=== PATIENT | female | born 1945 | race Caucasian/White ===

== ENCOUNTER 2016-12-28 04:55 | Observation (INO) | payer OTHER ==
[2016-12-03 09:22] VITALS: BMI 32.0
--- NOTE | 2016-12-03 09:49 | PAT Medication Instructions ---
Service Date Dec 03, 2016. Current Home Medication List Albuterol Sulfate (Proventil Hfa), 2 PUFFS INH Q4H PRN for RN Alprazolam (Xanax), 0.25 MG PO BID PRN for Anxiety and/or Sedation Atorvastatin (Lipitor), 20 MG PO QPM Budesonide/Formoterol Fumarate (Symbicort 160-4.5 Mcg/Act), 1 PUFF INH BID Diltiazem Hcl (Diltiazem Hcl), 120 MG PO QAM Ipratropium-Albuterol (Duoneb), 1 TREATMENT INH Q4H Lansoprazole (Prevacid), 15 MG PO BID Multivitamin (Multivitamin), 1 TAB PO QAM Paroxetine (Paxil), 10 MG PO QAM [losartan], 1 TAB PO QAM Medication Instructions For Your Scheduled Surgery - Hold the following medications the morning of surgery: [losartan], 1 TAB PO QAM Multivitamin (Multivitamin), 1 TAB PO QAM - Take the following medications the morning of surgery with a sip of water OTHERWISE NOTHING TO EAT OR DRINK AFTER MIDNIGHT: Alprazolam (Xanax), 0.25 MG PO BID PRN for Anxiety and/or Sedation Albuterol Sulfate (Proventil Hfa), 2 PUFFS INH Q4H PRN Diltiazem Hcl (Diltiazem Hcl), 120 MG PO QAM Paroxetine (Paxil), 10 MG PO QAM Budesonide/Formoterol Fumarate (Symbicort 160-4.5 Mcg/Act), 1 PUFF INH BID Ipratropium-Albuterol (Duoneb), 1 TREATMENT INH Q4H Lansoprazole (Prevacid), 15 MG PO BID - Take the following medications as scheduled the night before surgery: Alprazolam (Xanax), 0.25 MG PO BID PRN for Anxiety and/or Sedation Albuterol Sulfate (Proventil Hfa), 2 PUFFS INH Q4H PRN Atorvastatin (Lipitor), 20 MG PO QPM Budesonide/Formoterol Fumarate (Symbicort 160-4.5 Mcg/Act), 1 PUFF INH BID Ipratropium-Albuterol (Duoneb), 1 TREATMENT INH Q4H Lansoprazole (Prevacid), 15 MG PO BID If you have any questions please call us at [phone] or [phone] or [phone]
[2016-12-03 10:12] LABS: BASO % 0.1 %; BASO ABS # 0.01 K/uL (0-0.2); COMPLETE YES; EOS % 0.4 %; HEMATOCRIT 41.2 % (37-47); IG% 0.8 %; LYMPH % 10.2 %; LYMPH ABS # 1.11 K/uL (1.2-3.4); MEAN CELL VOLUME 93.8 fL (80-100); MEAN CORPUSCULAR HEMOGLOBIN 31.2 pg (25-34); MEAN CORPUSCULAR HGB CONC 33.3 g/dl (32-36); MONO % 4.9 %; NEUT % 83.6 %; PLATELET COUNT 331 K/uL (130-400); RED BLOOD COUNT 4.39 M/uL (4.2-5.4); WHITE BLOOD COUNT 10.93 K/uL (4.8-10.8)
[2016-12-03 10:42] LABS: BUN/CREATININE RATIO 16.4 (10-20); CALCIUM 9.9 mg/dl (8.5-10.1); CREATININE 1.2 mg/dl (0.60-1.20); POTASSIUM 5.6 mmol/L (3.5-5.1)
--- NOTE | 2016-12-27 10:39 | History and Physical ---
History & Physical Date Dec 27, 2016. Chief Complaint left foot pain History of Present Illness The patient is a 71 year old female with complaints of left foot pain following a previous procedure for an ORIF of a lisfranc fx/dislocation. She developed traumatic arthritis in the left midfoot following the ORIF. Despite conservative tx, she had persistent pain and worsening deformity. She is now being set up for surgical management. 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 (4) Chest pain, rule out acute myocardial infarction (5) COPD (chronic obstructive pulmonary disease) (6) COPD exacerbation (7) Depression (8) Fall (9) Hyperlipidemia (10) Hypertension (11) Multiple fracture Surgical Problems: (1) H/o right thoracoscopy with decortication (2) H/o thoracentesis (3) S/P appendectomy (4) S/P bronchoscopy (5) S/P hysterectomy Allergies Coded Allergies: Hydrochlorothiazide (Verified Adverse Reaction, Intermediate, DIZZY, "LOOPY" FEELING, 12/03/16) Home Medications Scheduled Atorvastatin (Lipitor), 20 MG PO QPM Budesonide/Formoterol Fumarate (Symbicort 160-4.5 Mcg/Act), 1 PUFF INH BID Diltiazem Hcl (Diltiazem Hcl), 120 MG PO QAM Ipratropium-Albuterol (Duoneb), 1 TREATMENT INH Q4H Lansoprazole (Prevacid), 15 MG PO BID Multivitamin (Multivitamin), 1 TAB PO QAM Paroxetine (Paxil), 10 MG PO QAM [losartan], 1 TAB PO QAM Scheduled PRN Albuterol Sulfate (Proventil Hfa), 2 PUFFS INH Q4H PRN for RN Alprazolam (Xanax), 0.25 MG PO BID PRN for Anxiety and/or Sedation Physical Examination Skin: warm/dry, no rash, + pertinent finding (Healed left foot midfoot dorsal incision.) Eyes: normal inspection Head: normocephalic Neck: supple Respiratory/Chest: lungs clear, normal breath sounds, no respiratory distress Cardiovascular: regular rate, rhythm, no murmur Abdomen / GI: normal bowel sounds Extremities: + pertinent finding (Left foot midfoot deformity with bony prominences. Cock up deformity of the great toe. Tender to palpation at the 1st- 3rd TMT joints, intercuneiform joints and naviculocuneiform joints. Decreased ROM of the left ankle, particularly with dorsiflexion. 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 All potential risks, benefits, complications, alternatives, and rehab have been discussed. The patient wishes to proceed. She will be scheduled for 12.28.16.
[2016-12-28] VITALS (9 sets, daily range): BP systolic 120–150; BP diastolic 42–69; PULSE 71–93; TEMP 36.4–36.9; O2SAT 93–99; Ht 162.6 cm; Wt 86.2 kg
[~2016-12-28] VITALS: Ht 162.6 cm; Wt 86.2 kg
[~2016-12-28 04:55] MED LIST: ALBUAER INH; ALPR-411 PO; ATOR-22 PO; DILT120T3 PO; IPRASOL4 INH; LANS15CA6 PO; MULT-506 PO; PARO1TAB27 PO; SYMIN INH; losartan PO
[2016-12-28] MEDS ORDERED: CEFAZOLIN 2000 MG/60 ML D5W IV SCH (06:00)
[2016-12-28] MEDS ORDERED: LACTATED RINGER'S 1000ML 1,000 ML IV SCH (06:00)
[2016-12-28 06:15] LABS: INR 1.1 (0.9-1.1); PROTHROMBIN TIME (PATIENT) 11.4 SECONDS (9.0-12.0)
[2016-12-28] MEDS ORDERED: GLYCOPYRROLATE INJ 0.2 MG/ML VIAL ONE (06:33)
[2016-12-28] MEDS ORDERED: DEXAMETHASONE SOD INJ 4 MG/ML VIAL ONE (06:33)
[2016-12-28] MEDS ORDERED: NEOSTIGMINE METHYLSULFATE 5 MG/5 ML SYR ONE (06:33)
[2016-12-28] MEDS ORDERED: FENTANYL CITRATE INJ 50 MCG/1 ML 2 ML VIAL ONE ×3 (06:33→11:37)
[2016-12-28] MEDS ORDERED: ROCURONIUM BROMIDE 10 MG/ML 5 ML VIAL ONE (06:33)
[2016-12-28] MEDS ORDERED: ONDANSETRON INJ 2 MG/ML 2 ML VIAL ONE (06:33)
[2016-12-28] MEDS ORDERED: LIDOCAINE HCL 2% 2 ML VIAL (20MG/ML) ONE (06:33)
[2016-12-28] MEDS ORDERED: PROPOFOL IV EMULSION 10 MG/ML 20 ML VIAL IV ONE (06:33)
[2016-12-28] MEDS ORDERED: MIDAZOLAM HCL 1 MG/ML 2ML VIAL ONE (06:33)
[2016-12-28] MEDS ORDERED: ROPIVACAINE 0.5% 5 MG/ML 30 ML VIAL ONE (06:39)
[2016-12-28] MEDS ORDERED: EpHEDrine SULFATE INJ 50 MG/ML AMP IV PRN (07:00)
[2016-12-28] MEDS ORDERED: ATROPINE SULFATE 0.1 MG/ML 5ML SYR IV PRN (07:00)
[2016-12-28] MEDS ORDERED: ALBUT/IPRATROP 3MG/0.5MG NEB 3 ML VIAL INH ONE (07:00)
[2016-12-28] MEDS ORDERED: FENTANYL CITRATE INJ 50 MCG/1 ML 2 ML VIAL IV PRN (07:00)
[2016-12-28] MEDS ORDERED: HYDROmorphone INJ 1 MG/ML SYR IV PRN (07:00)
[2016-12-28] MEDS ORDERED: ONDANSETRON INJ 2 MG/ML 2 ML VIAL IV PRN ×2 (07:00→12:00)
[2016-12-28] MEDS ORDERED: BUPIVACAINE/EPINEPHRINE 0.5% MPF 1:200,000 10 ML VIAL ONE ×2 (07:11→10:11)
[2016-12-28] MEDS ORDERED: BACITRACIN 50000 UNIT VIAL ONE (07:12)
[2016-12-28] MEDS ORDERED: BUPIVACAINE 0.5 % 5 MG/1 ML MPF 30ML VIAL ONE (07:14)
--- NOTE | 2016-12-28 07:49 | History & Physical Bridge Note ---
H&P Re-Evaluation Bridge Note: I have examined the patient, reviewed the History & Physical and in the interval since the performance of the History & Physical I have noted the following changes of clinical significance: No changes noted
[2016-12-28] MEDS ORDERED: HEPARIN SOD (PORCINE) 1000 UNIT/ML 10 ML VIAL ONE (07:50)
[2016-12-28] MEDS ORDERED: CALCIUM CHLORIDE 10% 10 ML SYR ONE (07:50)
[2016-12-28] MEDS ORDERED: THROMBIN 5000 UNITS KIT ONE ×2 (09:06→10:38)
[2016-12-28] MEDS ORDERED: HydrALAZINE HCL 20 MG/ML VIAL ONE (10:01)
[2016-12-28] MEDS ORDERED: SODIUM CHLORIDE 0.9% INJ 10 ML VIAL ONE (10:01)
[2016-12-28] MEDS ORDERED: ESMOLOL HCL 10 MG/ML 10 ML VIAL ONE (10:01)
[2016-12-28] MEDS ORDERED: METOPROLOL TARTRATE 1 MG/ML VIAL ONE (10:29)
[2016-12-28] MEDS ORDERED: BISACODYL 10 MG SUPP PR PRN (12:00)
[2016-12-28] MEDS ORDERED: MAGNESIUM HYDROXIDE SUSP 30 ML UDC PO PRN (12:00)
[2016-12-28] MEDS ORDERED: ALUMINUM/MAGNESIUM/SIMETH (MAALOX MAX) 30 ML UDC PO PRN (12:00)
[2016-12-28] MEDS ORDERED: NO NSAIDS SCH (12:00)
[2016-12-28] MEDS ORDERED: ZOLPIDEM TARTRATE 5 MG TAB PO PRN (12:00)
[2016-12-28] MEDS ORDERED: SOD PHOSPHATE/SOD BIPHOSPHATE ENEMA 132 ML BTL PR PRN (12:00)
[2016-12-28] MEDS ORDERED: ALPRAZOLAM 0.25 MG TAB PO PRN (12:00)
--- NOTE | 2016-12-28 12:03 | DIAGNOSTIC IMAGING REPORT ---
LEFT FOOT 2 VIEWS HISTORY: 71 years-old Female LT RECONSTRUCTION COMPARISON: Left foot radiographs 05/11/2016 TECHNIQUE: Frontal and lateral spot fluoroscopic images of the left foot were obtained for a total of 2 images utilizing 36.7 seconds of fluoroscopy time. Interpretation images was provided after the conclusion of the procedure. FINDINGS: Postsurgical changes of the forefoot and midfoot are seen with medial approach ORIF with plate and screw fixation through the navicular and cuboid and transversely through the base of the first metatarsal and cuneiforms with additional screw through the base of the first, second and third metatarsal bases. Postsurgical swelling is seen along the medial midfoot and dorsal midfoot. Extensive spurring of the calcaneus is redemonstrated. There is background moderate bone demineralization. There is widening between the first and second metatarsal bases. IMPRESSION: Status post ORIF of the mid foot and forefoot as above. Please see operative report for further details. The above report was generated using voice recognition software. It may contain grammatical, syntax or spelling errors. Electronically signed by: Puneet Murguia M.D. 12/28/2016 12:01 PM Dictated Date/Time: 12/28/2016 11:58 AM
--- NOTE | 2016-12-28 12:19 | [facility] Operative Report ---
Operative Report Operative Date Dec 28, 2016. 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 (1/2/3 TMT; 1/2/3 intercuneiform; 1/2/3 naviculocuneiform joints) Left foot lisfranc fx/dislocation Left achilles contracture Procedure(s) Performed Left Foot Medial Column Reconstruction (Arthrex Plate); Fusion of midfoot at the 1/2/3 Tarsal Metatarsal Joints, 1/2/3 Intercuneiform Joints and 1/2/3 Naviculocuneiform Joints; Percutaneous Tendon Achilles Lengthening; Application of Bone Marrow Aspirate, Left Iliac Crest Bone Marrow Aspirate [place] Surgeon Dr Berry Back Office Medical Assistant Surgeon(s) Minh Sweeney PA-C Estimated Blood Loss 35 Findings See operative report Specimens None as per surgeon Drains none Anesthesia Gen. LMA with popliteal block Complication(s) None Disposition Recovery Room / PACU Indications This is a 71-year-old female with remote history of neglected left foot Lisfranc fracture dislocation. She had chronic progressive and debilitating left foot pain, deformity with swelling. She attempted and failed conservative management including: Anti-inflammatories, rest, ice, elevation, use of assistive device, shoewear modification, shoe inserts and home exercises. She had radiographs and CT scans consistent with neglected Lisfranc fracture dislocation with collapse of the medial arch and severe degenerative changes throughout the midfoot. The patient was then scheduled for surgery as indicated. Description of Procedure All potential risks, benefits, complications, alternatives, rehabilitation, potential for incomplete relief of symptoms, need for further surgery, persistent numbness, weakness, stiffness, persistent pain, DVT, PE, , bone fracture, hardware breakage, nonunion, malunion or wound complications were discussed with the patient. The patient decided to proceed with the procedure as indicated. Procedure: Patient received a popliteal block in the preoperative holding area. The patient was then taken to the operative suite and placed supine on the operating table. After review of the consent indication of the proper operative site the patient was anesthetized and LMA was placed. A tourniquet was applied high on the left lateral cast padding. The left lower extremity was then sterilely prepped and draped in usual fashion. Left lower extremity was then exsanguinated with an Esmarch bandage and the tourniquet was inflated to 350 mmHg. The left foot was held in dorsiflexion and a three-part percutaneous tendo Achilles lengthening was performed with an 11 blade scalpel. The 3 small incisions were then closed using skin rico. Next a 15 blade scalpel was used to make an incision along the medial column of the left extending from just distal to the medial malleolus to the metatarsal flare of the first metatarsal head. The incision was deepened to the subcutaneous tissue. Meticulous hemostasis was achieved with left cautery. The tributaries of the saphenous vein was then retracted and protected. The deep retinaculum was then incised in line with the skin incision and elevated. The tibialis anterior was then marked with a #2 FiberWire suture proximally with a Krakw locking loop and a similar #2 FiberWire Krakw locking loop was placed distally. The tendon was then severed between the 2 locking loop sutures and then retracted proximally. The tibialis anterior was then sharply elevated the medial cuneiform. The distal insertion was left intact. Next the capsular tissue along the medial column was then sharply incised with 15 blade scalpel and elevated both superiorly and inferiorly. Next the first tarsometatarsal joint was then entered with a 15 blade scalpel. Rongeur was used to resect the exostoses dorsal and plantar. Next Triplett elevator was then used to open the second tarsometatarsal joint and then subsequently the third tarsometatarsal joint was opened. Next attention was injected toward the first naviculocuneiform joint. The second naviculocuneiform and third naviculocuneiform joints and over the 15 blade scalpel and a Triplett elevator. A Dow retractor was placed dorsally after the neurovascular bundles and sharply elevated with a Metzenbaum scissor. The second Dow retractors placed plantar to protect the soft tissue structures at the level of midfoot. Next a [employer] saw blade was then used to perform a biplanar intra-articular closing wedge osteotomy extending from the first tarsometatarsal joint through the second tarsometatarsal joint and across the third tarsometatarsal joint. This markedly corrected the foot position when trial reduction was performed of the arthrodesis. Next the naviculocuneiform intercuneiform and tarsometatarsal joints then further prepared by using a curette and rongeur to remove any residual articular cartilage and then this was irrigated with sternal saline. Next a 1.6 mm drill was then used to make multiple drill holes in the first second and third tarsometatarsal joints the first second and third intercuneiform joints as well as the first second and third naviculocuneiform joints to increase surface area and produce bleeding of the arthrodesis sites. Next a 6 deniz osteotome and mallet was used to fish scale all joint surfaces to be fused. Next the foot was then placed back in improved alignment and then provisionally pinned with multiple K wires. Radiographs demonstrated marked improvement in the position and alignment of the foot. The abductus and planus deformities noted previously were corrected. Next a morcellized bone graft obtained from the closing wedge osteotomy was then impacted into the first second and third tarsometatarsal joints intercuneiform joints and naviculocuneiform joints. His then followed by placement of a Arthrex medial column stabilization plate provisionally with small BB tacks. At this point the left iliac crest then infiltrated with half percent Marcaine with epinephrine. Over the left iliac crest 15 blade scalpel incision was made through the skin and subcutaneous tissue. Meticulous hemostasis was achieved with cautery. Next the fascia was then incised with Letsche cautery revealing the iliac crest. Next a Jamshidi needle was then used to withdraw approximately 55 mL of marrow aspirate from left iliac crest. As then passed off processing. Next the wound was irrigated with sternal saline the fascia was closed with #1 Vicryl the dermis was closed using buried interrupted 2-0 Vicryl. The graft site was then injected with half percent Marcaine with epinephrine with morphine. The skin was then closed using skin rico. A sterile compressive dressing and sterile OpSite was applied over the graft harvest site. Next attention was then directed back toward the medial column plate which was then fixed from proximal to distal compressing every joint surface along the medial column. His first the slots in place with locking screws at the proximal aspect plate followed by locking screws into the regular then into the intercuneiform's and then finally into the metatarsals after a compression homerun screw was placed from the first metatarsal into the navicular. Next final locking screws were placed in the metatarsal. Final irrigation was performed with copious amounts of sterile normal saline with bacitracin additive. Bone marrow aspirate was then injected into the fusion sites to enhance bone healing and tissue healing. Next the final x-rays were obtained AP and lateral projections noted marked improvement in alignment and position of the foot. The tibialis anterior was then repaired with #2 FiberWire suture. The deep periosteum and fascia was then closed with interrupted 2-0 Vicryl. The dermis was closed using buried interrupted 3-0 Vicryl. The skin is closed after further bone marrow aspirate was injected in the subcutaneous layer with 4-0 nylon sutures. A sterile compressive dressing and bulky Isreal Foss plaster splint was applied overwrapped with an Дмитрий wrap. The tourniquet was released the patient was awakened and taken to recovery in stable condition. I attest to the content of the Intraoperative Record and any orders documented therein. Any exceptions are noted below.
--- NOTE | 2016-12-28 12:46 | DIAGNOSTIC IMAGING REPORT ---
LEFT FOOT MIN 3 VIEWS ROUTINE HISTORY: 71 years-old Female postoperative exam. COMPARISON: Left foot radiographs 12/28/2016 TECHNIQUE: 3 views of the left foot were obtained post midfoot fusion. FINDINGS: Overlying casting material dramatically limits evaluation of the fine bony detail. The bones are diffusely demineralized. Medial plate and screw fusion hardware is again seen within the midfoot and forefoot fixating the navicular, cuboid, cuneiforms and first, second and third metatarsal bases. Again, there is mild widening between the first and second metatarsal bases. Alignment otherwise appears satisfactory. Plummer are seen posteriorly about the lower leg. There is prominent spurring of the calcaneus and anterior process of talus. Expected postsurgical swelling is noted. IMPRESSION: Post surgical changes as above with limited evaluation secondary to overlying cast. Please see operative report for further details. The above report was generated using voice recognition software. It may contain grammatical, syntax or spelling errors. Electronically signed by: Puneet Murguia M.D. 12/28/2016 12:45 PM Dictated Date/Time: 12/28/2016 12:42 PM
[2016-12-28] MEDS ORDERED: IV FLUIDS COMPLETED PRN (13:30)
--- NOTE | 2016-12-28 14:25 | Anesthesiology Progress Note ---
Anesthesia Post Op Note Date & Time Dec 28, 2016 at 14:25 Vital Signs Pain Intensity: 0 Vital Signs Past 12 Hours Date Time Temp Pulse Resp B/P (MAP) Pulse Ox O2 Delivery O2 Flow Rate FiO2 12/28/16 13:55 93 18 142/66 (91) 12/28/16 13:41 86 18 120/56 (77) 12/28/16 12:52 36.8 86 18 132/67 (88) 95 Nasal Cannula 3.0 12/28/16 12:40 36.6 81 16 138/82 92 Nasal Cannula 2 12/28/16 12:30 89 16 96/62 92 Nasal Cannula 2 12/28/16 12:20 83 16 147/66 96 Mask 10 12/28/16 12:10 82 16 138/69 96 Mask 10 12/28/16 12:01 36.2 87 16 150/82 96 Mask 10 12/28/16 06:57 71 16 93 Room Air 12/28/16 05:48 36.9 71 18 147/42 (77) 96 Room Air Notes Mental Status: alert / awake / arousable, participated in evaluation Pt Amnestic to Procedure: Yes Nausea / Vomiting: adequately controlled Pain: adequately controlled Airway Patency, RR, SpO2: stable & adequate BP & HR: stable & adequate Hydration State: stable & adequate Anesthetic Complications: no major complications apparent
[2016-12-28] MEDS ORDERED: LOSA50TA6 PO (15:02)
[2016-12-28] MEDS: D5W AND 1/2NSS + 20MEQ KCL 1,000 ML IV SCH (15:39)
[2016-12-28] MEDS: CEFAZOLIN IV 2,000 MG in DEXTROSE 5% 50ML 50 ML IV SCH (15:39)
[2016-12-28] MEDS: ACETAMINOPHEN 500 MG TAB PO SCH ×2 (15:40→21:24)
[2016-12-28] MEDS: LANSOPRAZOLE SOLUTAB 15 MG PO SCH (21:22)
[2016-12-28] MEDS: DOCUSATE SODIUM 100 MG CAP PO SCH (21:22)
[2016-12-28] MEDS: ATORVASTATIN 20 MG TAB PO SCH (21:22)
[2016-12-28] MEDS: SENNA 8.6 MG TAB PO SCH (21:23)
[2016-12-28] MEDS: ASPIRIN 81 MG ECTAB PO SCH (21:23)
[2016-12-28] MEDS: BUDESONIDE/FORMOTEROL FUMARATE 160/4.5 60 PUFFS/INHALER INH SCH (21:23)
[2016-12-29] VITALS (7 sets, daily range): BP systolic 125–156; BP diastolic 65–73; PULSE 72–96; TEMP 36.4–37.6; O2SAT 88–98
[2016-12-29] MEDS: D5W AND 1/2NSS + 20MEQ KCL 1,000 ML IV SCH (00:06)
[2016-12-29] MEDS: CEFAZOLIN IV 2,000 MG in DEXTROSE 5% 50ML 50 ML IV SCH (00:06)
[2016-12-29] MEDS: OXYCODONE HCL IR 5 MG TAB (IMMEDIATE RELEASE) PO PRN ×5 (03:11→20:06)
[2016-12-29] MEDS: ACETAMINOPHEN 500 MG TAB PO SCH ×3 (05:40→20:51)
[2016-12-29 06:25] LABS: HEMATOCRIT 34.5 % (37-47); MEAN CELL VOLUME 93.8 fL (80-100); MEAN CORPUSCULAR HEMOGLOBIN 30.4 pg (25-34); MEAN CORPUSCULAR HGB CONC 32.5 g/dl (32-36); MEAN PLATELET VOLUME 9.1 fL (7.4-10.4); PLATELET COUNT 392 K/uL (130-400); RED BLOOD COUNT 3.68 M/uL (4.2-5.4); WHITE BLOOD COUNT 10.05 K/uL (4.8-10.8)
[2016-12-29 06:56] LABS: CALCIUM 8.8 mg/dl (8.5-10.1); POTASSIUM 4.4 mmol/L (3.5-5.1)
[2016-12-29] MEDS: MoRPHine SULFATE 2 MG/ML CARP IV PRN ×5 (08:33→20:46)
[2016-12-29] MEDS: ASPIRIN 81 MG ECTAB PO SCH ×2 (08:33→20:50)
[2016-12-29] MEDS: LOSARTAN POTASSIUM 50 MG TAB PO SCH (08:33)
[2016-12-29] MEDS: DILTIAZEM HCL 120 MG CAPCR PO SCH (08:33)
[2016-12-29] MEDS: DOCUSATE SODIUM 100 MG CAP PO SCH ×2 (08:33→20:50)
[2016-12-29] MEDS: BUDESONIDE/FORMOTEROL FUMARATE 160/4.5 60 PUFFS/INHALER INH SCH ×2 (08:33→20:47)
[2016-12-29] MEDS: MULTIVITAMIN TAB PO SCH (08:34)
[2016-12-29] MEDS: PAROXETINE 20 MG TAB PO SCH (08:34)
[2016-12-29] MEDS: LANSOPRAZOLE SOLUTAB 15 MG PO SCH ×2 (08:34→20:51)
[2016-12-29] MEDS ORDERED: NURSING VERBAL MED ORDER ONE ×2 (09:30→21:45)
--- NOTE | 2016-12-29 09:45 | Orthopedic Progress Note ---
Orthopedic Progress Note Date of Service Dec 29, 2016. Subjective Reports: feeling well, Denies: complaints, chest pain, SOB, nausea / vomiting, light headedness, calf pain Additional Notes: Foot pain well controlled. Up with PT. Finished breakfast. Objective calves soft nontender, N/V intact, splint C/D/I, capillary refill less than 2 sec., A&O x3, toes mobile DNVSI. Cap refill < 2 sec. Date Time Temp Pulse Resp B/P (MAP) Pulse Ox O2 Delivery O2 Flow Rate FiO2 12/29/16 07:49 36.9 72 18 134/73 (93) 91 Room Air 12/29/16 03:12 36.6 80 16 156/70 (98) 98 Nasal Cannula 3.0 12/29/16 00:07 36.4 85 14 128/68 (88) 98 Nasal Cannula 3.0 12/28/16 19:50 36.8 89 16 147/63 (91) 96 Room Air 12/28/16 19:30 Room Air 12/28/16 16:41 95 Nasal Cannula 3.0 12/28/16 16:00 Nasal Cannula 2.0 12/28/16 15:59 36.4 85 16 146/69 (94) 99 Nasal Cannula 3.0 12/28/16 14:50 36.8 84 16 150/63 (92) 94 Nasal Cannula 3.0 12/28/16 13:55 93 18 142/66 (91) 12/28/16 13:41 86 18 120/56 (77) 12/28/16 12:52 36.8 86 18 132/67 (88) 95 Nasal Cannula 3.0 12/28/16 12:40 36.6 81 16 138/82 92 Nasal Cannula 2 12/28/16 12:30 89 16 96/62 92 Nasal Cannula 2 12/28/16 12:20 83 16 147/66 96 Mask 10 12/28/16 12:10 82 16 138/69 96 Mask 10 12/28/16 12:01 36.2 87 16 150/82 96 Mask 10 Laboratory Results 24 Hours: Test 12/29/16 05:51 Hematocrit 34.5 % Hemoglobin 11.2 g/dL Assessment & Plan Assessment: S/P Left foot medial column reconstruction. Extensive midfoot fusions, Perc ROCÍO , Application BMA. POD#1 Plan: Plan for [facility] in [place] if/when approved as patient lives alone.Will attempt alternate placement if patient approves. ROGERS Barrios and ROXANNs while in bed PT for gait training EC ASA 81mg PO daily for 4 weeks Discharge Planning [facility]charge [facility] DVT Prophylaxis: ASA
[2016-12-29] MEDS ORDERED: OXYC-57 PO (10:46)
[2016-12-29] MEDS ORDERED: ASPEC81 PO (10:46)
--- NOTE | 2016-12-29 10:49 | Discharge Instructions ---
Discharge Instructions Date of Service Dec 29, 2016. Admission Reason for Admission: Left Foot Traumatic Mid-Foot Degenerative Joint Di Discharge Discharge Diagnosis / Problem: Left foot reconstruction Discharge Goals Goal(s): Decrease discomfort, Improve function, Increase independence, Therapeutic intervention Activity Recommendations Activity Level: Assistance Required Therapies: Physical Therapy, Occupational Therapy Weightbearing Status: Left non-weightbearing . Additional Information Patient informed of condition: Yes Advance Directives: No DNR: No Level of Care: Skilled Communicable Disease: No Prognosis: Stable Current Hospital Diet Patient's current hospital diet: Regular Diet Discharge Diet Recommended Diet: Regular Diet Procedures Procedures Performed: Left Foot Medial Column Reconstruction (Arthrex Plate); Fusion of midfoot at the 1/2/3 Tarsal Metatarsal Joints, 1/2/3 Intercuneiform Joints and 1/2/3 Naviculocuneiform Joints; Percutaneous Tendon Achilles Lengthening; Application of Bone Marrow Aspirate, Left Iliac Crest Bone Marrow Aspirate [place] Pending Studies Studies pending at discharge: no Medical Emergencies . Who to Call and When: Medical Emergencies: If at any time you feel your situation is an emergency, please call 911 immediately. . Non-Emergent Contact Non-Emergency issues call your: Primary Care Provider . . "Provider Documentation" section prepared by Cassandra Avina. . Core Measure Problem Core Measures: None
[2016-12-29 14:59] LABS: URINE APPEARANCE CLEAR (CLEAR); URINE BILIRUBIN NEG (NEG); URINE COLOR YELLOW; URINE NITRITE NEG (NEG); URINE SPECIFIC GRAVITY 1.011 (1.000-1.030); UROBILINOGEN NEG (NEG); ZZUR CULT IF INDIC CLEAN CATCH NO
[2016-12-29 15:00] LABS: MANUAL MICROSCOPIC REQUIRED? NO; REVIEW REQ? NO
[2016-12-29] MEDS: ALBUTEROL HFA 8 GM INHALER INH PRN (19:38)
[2016-12-29] MEDS: SENNA 8.6 MG TAB PO SCH (20:50)
[2016-12-29] MEDS: ATORVASTATIN 20 MG TAB PO SCH (20:50)
[2016-12-29] MEDS: ALBUT/IPRATROP 3MG/0.5MG NEB 3 ML VIAL INH PRN (21:25)
[2016-12-29] MEDS: OXYCODONE HCL 10 MG TABCR (OXYCONTIN) PO PRN (21:52)
[2016-12-29] MEDS: HYDROmorphone INJ 0.5 MG/0.5 ML SYR IV PRN (21:53)
[2016-12-30] MEDS: OXYCODONE HCL IR 5 MG TAB (IMMEDIATE RELEASE) PO PRN ×4 (05:23→22:19)
[2016-12-30] MEDS: ACETAMINOPHEN 500 MG TAB PO SCH ×3 (05:23→22:15)
[2016-12-30 05:24] VITALS: PULSE 102; O2SAT 92
[2016-12-30] MEDS: ALBUT/IPRATROP 3MG/0.5MG NEB 3 ML VIAL INH PRN ×2 (05:24→17:23)
[2016-12-30] MEDS: HYDROmorphone INJ 0.5 MG/0.5 ML SYR IV PRN ×4 (06:03→18:28)
[2016-12-30 06:20] VITALS: BP 124/69; PULSE 89; TEMP 36.9; O2SAT 95
[2016-12-30 06:34] LABS: HEMATOCRIT 34.8 % (37-47); MEAN CELL VOLUME 95.1 fL (80-100); MEAN CORPUSCULAR HEMOGLOBIN 30.6 pg (25-34); MEAN CORPUSCULAR HGB CONC 32.2 g/dl (32-36); MEAN PLATELET VOLUME 9.4 fL (7.4-10.4); PLATELET COUNT 397 K/uL (130-400); RED BLOOD COUNT 3.66 M/uL (4.2-5.4); WHITE BLOOD COUNT 9.07 K/uL (4.8-10.8)
[2016-12-30 07:04] LABS: BUN/CREATININE RATIO 13.8 (10-20); CALCIUM 9.1 mg/dl (8.5-10.1); POTASSIUM 3.9 mmol/L (3.5-5.1)
[2016-12-30] MEDS: ASPIRIN 81 MG ECTAB PO SCH ×2 (07:58→22:13)
[2016-12-30] MEDS: LANSOPRAZOLE SOLUTAB 15 MG PO SCH ×2 (07:59→22:14)
[2016-12-30] MEDS: DOCUSATE SODIUM 100 MG CAP PO SCH ×2 (07:59→22:13)
[2016-12-30] MEDS: PAROXETINE 20 MG TAB PO SCH (07:59)
[2016-12-30] MEDS: LOSARTAN POTASSIUM 50 MG TAB PO SCH (07:59)
[2016-12-30] MEDS: MULTIVITAMIN TAB PO SCH (07:59)
[2016-12-30] MEDS: DILTIAZEM HCL 120 MG CAPCR PO SCH (08:00)
[2016-12-30] MEDS: BUDESONIDE/FORMOTEROL FUMARATE 160/4.5 60 PUFFS/INHALER INH SCH ×2 (08:00→22:18)
--- NOTE | 2016-12-30 08:33 | Orthopedic Progress Note ---
Orthopedic Progress Note Date of Service Dec 30, 2016. Subjective Post OP Day: 2 Reports: feeling well, Denies: chest pain, SOB, nausea / vomiting, light headedness, calf pain Objective calves soft nontender, N/V intact, splint C/D/I, capillary refill less than 2 sec., A&O x3, toes mobile Date Time Temp Pulse Resp B/P (MAP) Pulse Ox O2 Delivery O2 Flow Rate FiO2 12/30/16 08:10 Nasal Cannula 2.0 12/30/16 06:20 36.9 89 18 124/69 (87) 95 Nasal Cannula 2.0 12/30/16 05:24 102 24 92 Nasal Cannula 2.0 12/29/16 23:40 36.8 92 16 146/70 (95) 92 Nasal Cannula 2.0 12/29/16 21:25 86 18 88 Room Air 12/29/16 19:15 Room Air 12/29/16 15:05 36.8 96 18 134/68 (90) 91 12/29/16 13:21 37.6 88 18 125/65 (85) Laboratory Results 24 Hours: Test 12/30/16 05:25 Hematocrit 34.8 % Hemoglobin 11.2 g/dL Assessment & Plan Assessment: S/P Left foot medial column reconstruction. Extensive midfoot fusions, Perc ROCÍO , Application BMA. POD#2 Plan: Plan for [facility] in [place] if/when approved as patient lives alone.Will attempt alternate placement if patient approves. Awaiting [facility], most likely saturday [facility] L LE TEDs and SCDs while in bed PT for gait training EC ASA 81mg PO daily for 4 weeks Inhouse Planning Pain Management: Oxycontin, Dilaudid DVT Prophylaxis: TEDs, SCDs, ASA Discharge Planning Discharge Planning: [facility] facility DVT Prophylaxis: TEDs, SCDs, ASA Therapy: Physical Therapy
[2016-12-30 08:58] VITALS: PULSE 112; O2SAT 91
[2016-12-30 15:08] VITALS: BP 124/66; PULSE 91; TEMP 37.3; O2SAT 94
[2016-12-30 17:23] VITALS: PULSE 95; O2SAT 92
[2016-12-30] MEDS: SENNA 8.6 MG TAB PO SCH (22:13)
[2016-12-30] MEDS: ATORVASTATIN 20 MG TAB PO SCH (22:13)
[2016-12-30] MEDS: ALBUTEROL HFA 8 GM INHALER INH PRN (22:18)
[2016-12-30] MEDS: OXYCODONE HCL 10 MG TABCR (OXYCONTIN) PO PRN (22:19)
[2016-12-31 00:07] VITALS: BP 137/72; PULSE 85; TEMP 37.1; O2SAT 90
[2016-12-31] MEDS: ACETAMINOPHEN 500 MG TAB PO SCH ×2 (05:37→13:54)
[2016-12-31] MEDS: ALBUTEROL HFA 8 GM INHALER INH PRN (05:39)
[2016-12-31 05:47] LABS: HEMATOCRIT 30.8 % (37-47); MEAN CELL VOLUME 93.1 fL (80-100); MEAN CORPUSCULAR HEMOGLOBIN 30.2 pg (25-34); MEAN CORPUSCULAR HGB CONC 32.5 g/dl (32-36); MEAN PLATELET VOLUME 8.7 fL (7.4-10.4); PLATELET COUNT 310 K/uL (130-400); RED BLOOD COUNT 3.31 M/uL (4.2-5.4)
[2016-12-31 06:34] VITALS: BP 134/70; PULSE 81; TEMP 36.8; O2SAT 91
--- NOTE | 2016-12-31 07:15 | Orthopedic Progress Note ---
Orthopedic Progress Note Date of Service Dec 31, 2016. Subjective Post OP Day: 3 Reports: feeling well, pain controlled w PO medications, Denies: complaints, chest pain, SOB, calf pain Objective calves soft nontender, N/V intact, splint C/D/I, capillary refill less than 2 sec., A&O x3, toes mobile Date Time Temp Pulse Resp B/P (MAP) Pulse Ox O2 Delivery O2 Flow Rate FiO2 12/31/16 06:34 36.8 81 16 134/70 (91) 91 Room Air 12/31/16 00:10 Room Air 12/31/16 00:07 37.1 85 16 137/72 (93) 90 Room Air 12/30/16 17:23 95 16 92 Room Air 12/30/16 16:30 Room Air 12/30/16 15:08 37.3 91 18 124/66 (85) 94 Room Air 12/30/16 08:58 112 91 12/30/16 08:10 Nasal Cannula 2.0 Laboratory Results 24 Hours: Test 12/31/16 05:24 Hematocrit 30.8 % Hemoglobin 10.0 g/dL Assessment & Plan Assessment: S/P Left foot medial column reconstruction. Extensive midfoot fusions, Perc ROCÍO , Application BMA. POD#3 Plan: Plan for [facility] in [place] today if accepted and insurance approves. ROGERS LUGO TEDs and SCDs while in bed PT for gait training EC ASA 81mg PO daily for 4 weeks Inhouse Planning Pain Management: Oxycontin, Dilaudid DVT Prophylaxis: TEDs, SCDs, ASA Discharge Planning Discharge Planning: shelter facility Pain Management: Percocet DVT Prophylaxis: TEDs, SCDs, ASA Therapy: Physical Therapy
[2016-12-31] MEDS: DOCUSATE SODIUM 100 MG CAP PO SCH (07:56)
[2016-12-31] MEDS: BUDESONIDE/FORMOTEROL FUMARATE 160/4.5 60 PUFFS/INHALER INH SCH (07:56)
[2016-12-31] MEDS: LANSOPRAZOLE SOLUTAB 15 MG PO SCH (07:56)
[2016-12-31] MEDS: PAROXETINE 20 MG TAB PO SCH (07:57)
[2016-12-31] MEDS: MULTIVITAMIN TAB PO SCH (07:57)
[2016-12-31] MEDS: ASPIRIN 81 MG ECTAB PO SCH (07:57)
[2016-12-31] MEDS: DILTIAZEM HCL 120 MG CAPCR PO SCH (07:58)
[2016-12-31] MEDS: LOSARTAN POTASSIUM 50 MG TAB PO SCH (07:58)
[2016-12-31] MEDS: OXYCODONE HCL IR 5 MG TAB (IMMEDIATE RELEASE) PO PRN ×3 (08:02→17:03)
[2016-12-31] MEDS: OXYCODONE HCL 10 MG TABCR (OXYCONTIN) PO PRN (09:06)
--- NOTE | 2016-12-31 09:22 | Anesthesiology Progress Note ---
Anesthesia Post Op Note Date & Time Dec 31, 2016 at 09:22 Vital Signs Pain Intensity: 3.0 Vital Signs Past 12 Hours Date Time Temp Pulse Resp B/P (MAP) Pulse Ox O2 Delivery O2 Flow Rate FiO2 12/31/16 06:34 36.8 81 16 134/70 (91) 91 Room Air 12/31/16 00:10 Room Air 12/31/16 00:07 37.1 85 16 137/72 (93) 90 Room Air Notes Mental Status: alert / awake / arousable, participated in evaluation Pt Amnestic to Procedure: Yes Nausea / Vomiting: adequately controlled Pain: adequately controlled Airway Patency, RR, SpO2: stable & adequate BP & HR: stable & adequate Hydration State: stable & adequate Anesthetic Complications: no major complications apparent
[2016-12-31 15:04] VITALS: BP 153/68; PULSE 88; TEMP 37.3; O2SAT 93
[2016-12-31 16:16] VITALS: BP 153/68; PULSE 88; TEMP 37.3; O2SAT 93
--- NOTE | 2017-01-04 20:07 | Discharge Summary ---
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 Discharge Date/Disposition Dec 31, 2016 care home facility Diagnosis Principal Diagnosis: left foot traumatic DJD Procedure(s) Performed Left Foot Medial Column Reconstruction (Arthrex Plate); Fusion of midfoot at the 1/2/3 Tarsal Metatarsal Joints, 1/2/3 Intercuneiform Joints and 1/2/3 Naviculocuneiform Joints; Percutaneous Tendon Achilles Lengthening; Application of Bone Marrow Aspirate, Left Iliac Crest Bone Marrow Aspirate [place] Medication Reconciliation New Medications: Oxycodone/Acetaminophen 5MG/325MG (Percocet 5MG/325MG) Tab 1-2 TABLETS PO Q4H PRN for Pain, #60 TAB PAIN Aspirin (Aspirin EC Low Dose) 81 Mg Ectab 81 MG PO Q12 for 30 Days Continued Medications: Albuterol Sulfate (Proventil Hfa) 108 Mcg/Act Aer 2 PUFFS INH Q4H PRN for RN Alprazolam (Xanax) 0.5 Mg Tab 0.25 MG PO BID PRN for Anxiety and/or Sedation, TAB Atorvastatin (Lipitor) 20 Mg Tab 20 MG PO QPM, TAB Budesonide/Formoterol Fumarate (Symbicort 160-4.5 Mcg/Act) 60 Puffs/Inhaler Aero 1 PUFF INH BID Diltiazem Hcl (Diltiazem Hcl) 120 Mg Tab 120 MG PO QAM Ipratropium-Albuterol (Duoneb) 3 Ml Nebu 1 TREATMENT INH Q4H, INHA Lansoprazole (Prevacid) 15 Mg Capcr 15 MG PO BID Losartan Potassium (Cozaar) 50 Mg Tab 50 MG PO DAILY for 30 Days, #30 TAB 5 Refills Multivitamin (Multivitamin) Tab 1 TAB PO QAM, TAB Paroxetine (Paxil) 20 Mg Tab 10 MG PO QAM, TAB Admission Physical Exam As per Admitting History & Physical. Hospital Course The patient was admitted on 12.28 and underwent the above noted procedure. Throughout her admission, pain control was a goal. She did well with pain control but was having difficulty with NWB on the LLE. PT felt she would benefit from a stay at a longterm facility. Once the facility could accept her and her insurance approved, she was d/c'd. Discharge Instructions ACTIVITY RECOMMENDATIONS: Limitations: No weight bearing to affected limb at all times. SPECIAL CARE INSTRUCTIONS: * Some drainage onto the dressing is normal and is no cause for alarm. * Some swelling is natural especially after walking. * When resting, keep your foot elevated above the level of your heart. * Call [facility] if you notice: -Increased drainage -Fever over 101 degrees F -Severe constant pain BANDAGE: * Leave bandage/cast in place unless otherwise directed. * Keep bandage/cast dry at all times. FOLLOW UP VISIT WITH DR. SANCHEZ If appointment is not already scheduled: Please call [facility] after you get home today to schedule a follow-up appointment for [address] Sanchez at . Please refer to the electronic Patient Visit Report (Discharge Instructions) for additional information.
== END 2016-12-31 17:50 ==
LOC: C.ACU 04:55 → C.3E 05:45 → ENRESERV 12:21
PROVIDERS: ADMIT Orthopaedic Surgery Sports Medicine; ATTEND Orthopaedic Surgery Sports Medicine
DX: M19.172 Post-traumatic osteoarthritis, left ankle and foot (principal); S92.202A Fracture of unspecified tarsal bone(s) of left foot, initial encounter for closed fracture; M67.02 Short Achilles tendon (acquired), left ankle; X58.XXXA Exposure to other specified factors, initial encounter; I10 Essential (primary) hypertension; E78.5 Hyperlipidemia, unspecified; J44.9 Chronic obstructive pulmonary disease, unspecified; F41.9 Anxiety disorder, unspecified; F32.9 Major depressive disorder, single episode, unspecified; Z91.81 History of falling; Z79.899 Other long term (current) drug therapy; Z79.82 Long term (current) use of aspirin

== ENCOUNTER → 2017-04-01 | Outpatient (CLI) | payer OTHER ==
[~2017-04-01] MED LIST changes: +ASPEC81 PO; +LOSA50TA6 PO; +OPTIRAY 320 IV PRN; +OXYC-57 PO; -losartan PO
--- NOTE | 2017-04-01 13:52 | DIAGNOSTIC IMAGING REPORT ---
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 A dose lowering technique was utilized adhering to the principles of ALARA. COMPARISON: Chest CT 05/01/2016. FINDINGS: There is a stable 3 mm nodule within the lingula on image 141. A few bibasilar linear densities likely represent scarring or atelectasis. Mild central bronchial wall thickening, unchanged. The central airways are patent. No pneumothorax. No pleural effusions. Old, healed right-sided rib fractures. Left shoulder prosthesis. The visualized liver, spleen, and adrenal glands are unremarkable. No mediastinal or hilar lymphadenopathy. The heart is normal in size. The central airways are patent. Normal caliber thoracic aorta. Mild emphysema. IMPRESSION: 1. No change from the prior study. 2. Mild emphysema. 3. Stable mild central bronchial wall thickening. 4. Stable 3 mm indeterminate pulmonary nodule within the lingula. This bears watching on future examinations. Electronically signed by: Jorge Escobar M.D. 04/01/2017 1:50 PM Dictated Date/Time: 04/01/2017 1:43 PM
== END | disposition home or self-care (01) ==
LOC: C.CTS 12:42
PROVIDERS: ATTEND Internal Medicine Pulmonary Disease
DX: D02.20 Carcinoma in situ of unspecified bronchus and lung (principal); R91.1 Solitary pulmonary nodule

== ENCOUNTER 2017-07-29 17:57 | Inpatient (IN) | payer OTHER ==
[~2017-07-29] VITALS: Ht 162.6 cm; Wt 80.1 kg
[~2017-07-29 17:57] MED LIST changes: -OPTIRAY 320 IV PRN; -OXYC-57 PO
[2017-07-29 22:23] VITALS: BP 151/70; PULSE 86; TEMP 36.9; O2SAT 95; Ht 162.6 cm; Wt 80.1 kg
[2017-07-29] MEDS ORDERED: ENOXAPARIN 40 MG/0.4 ML SYR SQ SCH (22:45)
[2017-07-29] MEDS ORDERED: MAGNESIUM HYDROXIDE SUSP 30 ML UDC PO PRN (22:45)
[2017-07-29] MEDS ORDERED: POLYETHYLENE (MIRALAX) 17 GM PACK PO PRN (22:45)
[2017-07-29] MEDS ORDERED: ACETAMINOPHEN 325 MG TAB PO PRN (22:45)
[2017-07-29] MEDS ORDERED: ONDANSETRON INJ 2 MG/ML 2 ML VIAL IV PRN (22:45)
[2017-07-29 23:22] VITALS: BP 132/71; PULSE 81; TEMP 37.1; O2SAT 92
[2017-07-29 23:36] LABS: HEMOGLOBIN 13.3 g/dL (12.0-16.0); IG# 0.03 K/uL (0.00-0.02); LYMPH % 4.5 %; LYMPH ABS # 0.15 K/uL (1.2-3.4); MEAN CELL VOLUME 88.1 fL (80-100); MEAN CORPUSCULAR HEMOGLOBIN 31.7 pg (25-34); MEAN CORPUSCULAR HGB CONC 35.9 g/dl (32-36); MEAN PLATELET VOLUME 9.1 fL (7.4-10.4); MONO % 2.1 %; MONO ABS # 0.07 K/uL (0.11-0.59); NEUT % 92.5 %; NEUT ABS # 3.05 K/uL (1.4-6.5); PLATELET COUNT 204 K/uL (130-400); RED CELL DISTRIBUTION WIDTH CV 12.7 % (11.5-14.5); RED CELL DISTRIBUTION WIDTH SD 41.1 fL (36.4-46.3)
[2017-07-29] MEDS: SODIUM CHLORIDE 0.9% 1000ML 1,000 ML IV SCH (23:47)
--- NOTE | 2017-07-29 23:50 | History and Physical ---
History & Physical Date & Time of Service: Jul 29, 2017 at 23:22 Chief Complaint: Low Sodium, Flu Primary Care Physician: Sisi Padgett D.O. History of Present Illness Source: patient, hospital records 72 yo F with History of Asthma, COPD (not on o2) , History of lung cancer, HTN transferred from [facility] ED after presenting with SOB, Cough. SOB started today. She had been placed on outpatient Augmentin and prednisone x 2 wk both completed today.She had nebulizer treatment at home which gave her some relief. Cough is dry ,and she also reports some pleuritic chest tightness and wheezing. She reports fever of 101 prior to ED arrival at [facility]. She denies n/v, abdominal pain, diarrhea calf tenderness. According to [facility] records, Patient was afebrile, vital sigs stable on arrival, lung exam unremarkable, cxr unremarkable ,ekg unremrkable, positive flu swab, hyponatremic at 119, negative troponin, neg ua. She is a patient of Dr. Orellana for Lung Cancer. She also follows with Oncology at [facility]. Past Medical/Surgical History Medical Problems: (1) Anxiety Status: Chronic (2) Asthma Status: Chronic (3) COPD (chronic obstructive pulmonary disease) Status: Chronic (4) Depression Status: Chronic (5) Hyperlipidemia Status: Chronic (6) Hypertension Status: Chronic Surgical Problems: (1) H/o right thoracoscopy with decortication Status: Chronic (2) H/o thoracentesis Permanent Comment: right Status: Chronic (3) S/P appendectomy Status: Chronic (4) S/P bronchoscopy Status: Chronic (5) S/P hysterectomy Status: Chronic Family History FH: cancer FATHER (lung CA) BROTHER (liver CA) FH: heart disease FH: hypertension FH: lung disease Social History Smoking Status: Former Smoker Smokeless Tobacco Use: No Alcohol Use: none Drug Use: none Marital Status: Occupational Status: employed Immunizations History of Influenza Vaccine: N/A History of Tetanus Vaccine?: Yes Tetanus Immunization Date: Jan 20, 2006 History of Pneumococcal: Yes Pneumococcal Date: Jan 20, 2011 History of Hepatitis B Vaccine: No Multi-Drug Resistant Organisms History of MDRO: No Allergies Coded Allergies: Hydrochlorothiazide (Verified Adverse Reaction, Intermediate, DIZZY, "LOOPY" FEELING, 12/28/16) Home Medications Scheduled Aspirin (Aspirin EC Low Dose), 81 MG PO Q12 Atorvastatin (Lipitor), 20 MG PO QPM Budesonide/Formoterol Fumarate (Symbicort 160-4.5 Mcg/Act), 1 PUFF INH BID Diltiazem Hcl (Diltiazem Hcl), 120 MG PO QAM Ipratropium-Albuterol (Duoneb), 1 TREATMENT INH QID Lansoprazole (Prevacid), 15 MG PO BID Losartan Potassium (Cozaar), 25 MG PO DAILY Multivitamin (Multivitamin), 1 TAB PO QAM Paroxetine (Paxil), 20 MG PO QAM Scheduled PRN Albuterol Sulfate (Proventil Hfa), 2 PUFFS INH Q4H PRN for RN Alprazolam (Xanax), 0.25 MG PO Q12 PRN for Anxiety and/or Sedation Review of Systems Constitutional: + fever (resolved), No chills Respiratory: + cough, + sputum, + shortness of breath Cardiovascular: No edema, No palpitations Abdomen: No pain, No nausea, No vomiting Genitourinary - Female: No dysuria, No urinary frequency, No urinary urgency Integumentary: No rash, No itch Physical Exam Vital Signs Date Time Temp Pulse Resp B/P (MAP) Pulse Ox O2 Delivery O2 Flow Rate FiO2 07/29/17 22:27 Nasal Cannula 2.0 07/29/17 22:23 36.9 86 20 151/70 95 Nasal Cannula 2.0 GENERAL: alert, no distress EYE EXAM: normal conjunctiva, PERRL and EOM's grossly intact OROPHARYNX: no exudate, no erythema, lips, buccal mucosa, and tongue normal and mucous membranes are moist NECK: supple, no nuchal rigidity, no adenopathy, non-tender LUNGS: coarse breath sounds, bilaterally, scattered wheezing HEART: no murmurs, S1 normal and S2 normal ABDOMEN: abdomen soft, non-tender, normo-active bowel sounds, no masses, no rebound or guarding. BACK: Back is symmetrical on inspection and there is no deformity SKIN: no rashes and no bruising UPPER EXTREMITIES: upper extremities are grossly normal. LOWER EXTREMITIES: No pitting edema. no calf tenderness NEURO EXAM: Normal sensorium, cranial nerves II-XII grossly intact, normal speech Diagnostics Laboratory Results Results Past 24 Hours Test 07/29/17 23:11 Range/Units Impression Assessment and Plan 72 yo F with Asthma , COPD, HTN , History of Lung cancer ( Dx 3 yrs ago) recently treated 2 wks ago for COPD exacerbation outpatient with Prednisone and Augmentin x 2 wks. transferred from outside facility after presenting acute worsening of SOB, cough, wheezing chest tightness, w found to have positive flu swab , normal ekg, neg troponin, unremarkable cxr at outside facility. Admitted to Telemetry SOB, Cough, chest tightness H/o Asthma , h/o COPD ( no Home O2), Influenza - sob , cough , wheezing likely secondary to Asthma vs COPD exacerbation in setting of Influenza - Influenza A swab positive, afebrile unremarkable cxr , normal White ct at outside hospital - s/p failed outpatient treatment x 2wk of prednisone for presumed COPD exacerbation, s/p 2 wk treatment with Augmentin - F/u CBC, BMP, Troponin - F/u CXR - Start Tamiflu - Start Solumedrol - DuoNeb , Mucinex - O2 per protocol Hyponatremia - Na 119 at outside hospital - Repeat BMP Na 127 - appears euvolemic - Start IV NS HTN - Restart home Losartan, Diltiazem HLD - Restart home Lipitor DVT Prophylaxis - Lovenox Code status: Full Disposition: Tele status on arrival, Reassess in the morning for step down Attending addendum: I have physically seen this patient, have supervised the medical residents activities, and agree with the H&P unless as otherwise noted. Assessment and Plan: Influenza A/asthma/COPD exacerbation-- Tamiflu per renal dosing Solu-Medrol 40 mg IV every 8 hours Guaifenesin extended release 600 mg p.o. twice daily Duonebs every 4 hours while awake and every 2 hours when necessary. Nasal cannula 2 L of oxygen titrated to keep pulse ox greater than 92% Sputum Gram stain and culture Hyponatremia-- Sodium level at [facility] was 119, with repeat amount and then a 127. Serum osmolality and urine osmolality pending Conservative normal saline 40 mL's per hour until remainder studies return. Hypertension-- Diltiazem and losartan with hold parameters. Hyperlipidemia-- Continue Lipitor. Level of Care Telemetry Advanced Directives Existing Living Will: Yes Existing Power of Subsea Engineer: Yes Resuscitation Status FULL RESUSCITATION VTE Prophylaxis VTE Risk Assessment Done? Y/N: Yes Risk Level: Moderate Given or contraindicated: Enoxaparin (Lovenox)SQ Note Total Time: Critical Care 30 - 74 minutes Resident Tracking Resident Involvement: Resident Care Provided Care Provided: Adult [facility] Medicine
[2017-07-29 23:56] LABS: BLOOD UREA NITROGEN 11 mg/dl (7-18); CALCIUM 8.7 mg/dl (8.5-10.1); CARBON DIOXIDE 25 mmol/L (21-32); CREATININE 0.83 mg/dl (0.60-1.20); GLUCOSE 184 mg/dl (70-99); POTASSIUM 4.6 mmol/L (3.5-5.1); SODIUM 127 mmol/L (136-145)
[2017-07-30] VITALS (11 sets, daily range): BP systolic 144–163; BP diastolic 68–80; PULSE 64–98; TEMP 36.3–38.1; O2SAT 93–96
[2017-07-30] MEDS: METHYLPREDNISOLONE IV 40 MG in SYRINGE 0 ML IV SCH ×4 (00:25→23:11)
[2017-07-30] MEDS: ALBUT/IPRATROP 3MG/0.5MG NEB 3 ML VIAL INH SCH ×4 (06:59→19:42)
--- NOTE | 2017-07-30 07:03 | DIAGNOSTIC IMAGING REPORT ---
CHEST ONE VIEW PORTABLE CLINICAL HISTORY: cough, sob COMPARISON STUDY: 11/17/2015 FINDINGS: The cardiac and mediastinal contours are normal. There is no evidence of focal pulmonary consolidation. There is no evidence of failure. There is stable minor blunting of the right lateral costophrenic angle, likely chronic. Old right-sided rib deformities are evident.[ Postsurgical changes involve the left shoulder. IMPRESSION: No active disease in the chest. Electronically signed by: Julio Eastman M.D. 07/30/2017 7:01 AM Dictated Date/Time: 07/30/2017 7:01 AM
[2017-07-30] MEDS: DILTIAZEM HCL 120 MG CAPCR PO SCH (08:06)
[2017-07-30] MEDS: BUDESONIDE/FORMOTEROL FUMARATE 160/4.5 60 PUFFS/INHALER INH SCH ×2 (08:06→21:22)
[2017-07-30] MEDS: MULTIVITAMIN TAB PO SCH (08:07)
[2017-07-30] MEDS: ENOXAPARIN 40 MG/0.4 ML SYR SC SCH (08:07)
[2017-07-30] MEDS: OSELTAMIVIR PHOSPHATE 75 MG CAP PO SCH ×2 (08:07→21:21)
[2017-07-30] MEDS: ASPIRIN 81 MG ECTAB PO SCH ×2 (08:07→21:21)
[2017-07-30] MEDS: LOSARTAN POTASSIUM 25 MG TAB PO SCH (08:07)
[2017-07-30] MEDS: PAROXETINE 20 MG TAB PO SCH (08:07)
[2017-07-30] MEDS: GUAIFENESIN 600 MG TABCR PO SCH ×2 (08:07→21:21)
[2017-07-30] MEDS: PANTOprazole SOD 40 MG TAB PO SCH (08:08)
[2017-07-30] MEDS: SODIUM CHLORIDE 0.9% 1000ML 1,000 ML IV SCH ×2 (09:51→19:54)
--- NOTE | 2017-07-30 12:15 | Family Medicine Progress Note ---
Progress Note Date of Service Jul 30, 2017. Subjective Pt evaluation today including: conversation w/ patient, physical exam, chart review, lab review, review of studies, review of inpatient medication list Pain: Patient states she has no pain this morning Voiding: no voiding problems Patient states she feels much better today than on admission last evening. She has no complaints aside from some dyspnea Constitutional: No fever, No chills, No sweats, No weight loss, No weakness , No fatigue, No problem reported Respiratory: + cough, + shortness of breath, + dyspnea on exertion, + dyspnea at rest Cardiovascular: No chest pain, No orthopnea, No PND, No edema, No claudication, No palpitations, No problem reported Abdomen: No pain, No nausea, No vomiting, No diarrhea, No constipation, No GI bleeding, No problem reported All Other Systems: Reviewed and Negative Medications Current Inpatient Medications Medications (Trade) Dose Ordered Sig/Bird Route Start Time Stop Time Status Last Admin Dose Admin Acetaminophen (Tylenol Tab) 650 mg Q4H PRN PO 07/29/17 22:45 08/28/17 22:44 07/30/17 12:19 650 MG Magnesium Hydroxide (Milk Of Magnesia Susp) 30 ml Q6H PRN PO 07/29/17 22:45 08/28/17 22:44 Polyethylene (Miralax Powder Packet) 17 gm DAILY PRN PO 07/29/17 22:45 08/28/17 22:44 Ondansetron HCl (Zofran Inj) 4 mg Q6H PRN IV 07/29/17 22:45 08/28/17 22:44 Albuterol/ Ipratropium (Duoneb) 3 ml QIDR INH 07/30/17 08:00 08/29/17 07:59 07/30/17 19:42 3 ML Sodium Chloride 1,000 ml @ 100 mls/hr Q10H IV 07/29/17 23:30 08/28/17 23:29 07/30/17 19:54 100 MLS/HR Oseltamivir Phosphate (Tamiflu Cap) 75 mg BID PO 07/30/17 09:00 08/04/17 08:59 07/30/17 21:21 75 MG Guaifenesin (Mucinex Contr Rel Tab) 600 mg Q12 PO 07/30/17 09:00 3/22/18 08:59 07/30/17 21:21 600 MG Methylprednisolone Sodium Succinate 40 mg/Syringe 0.64 ml @ 1.5 mls/min Q8H IV 07/30/17 00:00 08/29/17 00:00 07/30/17 15:33 1.5 MLS/MIN Enoxaparin Sodium (Lovenox Inj) 40 mg Q24H SC 07/30/17 09:00 08/29/17 08:59 07/30/17 08:07 40 MG Aspirin (Ecotrin Tab) 81 mg Q12 PO 07/30/17 09:00 08/29/17 08:59 07/30/17 21:21 81 MG Atorvastatin Calcium (Lipitor Tab) 20 mg QPM PO 07/30/17 21:00 08/29/17 20:59 07/30/17 21:21 20 MG Budesonide/ Formoterol Fumarate (Symbicort 160/ 4.5 Inh) 1 puffs BID INH 07/30/17 09:00 08/29/17 08:59 07/30/17 21:22 1 PUFFS Losartan Potassium (coZAAR TAB) 25 mg DAILY PO 07/30/17 09:00 08/29/17 08:59 07/30/17 08:07 25 MG Multivitamins (Multivitamin Tab) 1 tab QAM PO 07/30/17 09:00 08/29/17 08:59 07/30/17 08:07 1 TAB Paroxetine HCl (pAXil TAB) 20 mg QAM PO 07/30/17 09:00 08/29/17 08:59 07/30/17 08:07 20 MG Diltiazem HCl (Cardizem Cd Cap) 120 mg QAM PO 07/30/17 09:00 08/29/17 08:59 07/30/17 08:06 120 MG Pantoprazole Sodium (Protonix Tab) 40 mg QAM PO 07/30/17 09:00 08/29/17 08:59 07/30/17 08:08 40 MG Objective Vital Signs Date Time Temp Pulse Resp B/P (MAP) Pulse Ox O2 Delivery O2 Flow Rate FiO2 07/30/17 20:00 Nasal Cannula 2.0 07/30/17 19:42 82 18 96 Room Air 07/30/17 16:06 36.9 89 18 144/80 (101) 93 Nasal Cannula 2.0 07/30/17 16:00 Nasal Cannula 2.0 07/30/17 15:52 37.0 84 18 96 2.0 07/30/17 15:36 84 18 96 Room Air 07/30/17 15:33 37.0 80 18 148/68 (94) 95 Nasal Cannula 3.0 07/30/17 12:00 Nasal Cannula 2.0 07/30/17 11:37 38.1 98 20 156/79 (104) 95 Nasal Cannula 2.0 07/30/17 11:12 91 18 94 Nasal Cannula 2.0 07/30/17 08:00 Nasal Cannula 2.0 07/30/17 07:00 82 20 96 Nasal Cannula 2.0 07/30/17 06:42 36.8 78 19 163/78 (106) 94 Nasal Cannula 2.0 07/30/17 04:00 Nasal Cannula 2.0 07/30/17 03:26 36.3 80 26 151/71 (97) 94 Nasal Cannula 2.0 07/29/17 23:22 37.1 81 16 132/71 (91) 92 Nasal Cannula 2.0 07/29/17 22:27 Nasal Cannula 2.0 07/29/17 22:23 36.9 86 20 151/70 95 Nasal Cannula 2.0 Physical Exam General Appearance: WD/WN, no apparent distress Eyes: normal inspection, PERRL, EOMI, sclerae normal ENT: hearing grossly normal, pharynx normal Neck: supple, no adenopathy, no JVD, no carotid bruits, trachea midline Respiratory/Chest: chest non-tender, no respiratory distress, no accessory muscle use, + wheezing (expiratory) Cardiovascular: regular rate, rhythm, no edema, no gallop, no JVD, no murmur Abdomen: normal bowel sounds, non tender, soft, no organomegaly Extremities: normal range of motion, non-tender, normal inspection, no pedal edema, no calf tenderness Neurologic/Psychiatric: mdm developer II-XII nml as tested, no motor/sensory deficits, alert, normal mood/affect, oriented x 3 Skin: normal color, warm/dry, no rash Laboratory Results Last Resulted 07/29/17 23:11 Red Blood Count 4.20, Mean Corpuscular Volume 88.1, Mean Corpuscular Hemoglobin 31.7, Mean Corpuscular Hemoglobin Concent 35.9, Mean Platelet Volume 9.1, Neutrophils (%) (Auto) 92.5, Lymphocytes (%) (Auto) 4.5, Monocytes (%) (Auto) 2.1, Eosinophils (%) (Auto) 0.0, Basophils (%) (Auto) 0.0, Neutrophils # (Auto) 3.05, Lymphocytes # (Auto) 0.15, Monocytes # (Auto) 0.07, Eosinophils # (Auto) 0.00, Basophils # (Auto) 0.00 Last Resulted 07/30/17 15:44 Past 24 Hours Test 07/29/17 23:11 Range/Units Prothromb Time International Ratio 1.0 0.9-1.1 Prothrombin Time 10.9 9.0-12.0 SECONDS Troponin I < 0.015 0-0.045 ng/ml Assessment and Plan 72 yo F with Asthma , COPD, HTN , History of Lung cancer ( Dx 3 yrs ago) recently treated 2 wks ago for COPD exacerbation outpatient with Prednisone and Augmentin x 2 wks. transferred from outside facility after presenting with acute worsening of SOB, cough, wheezing chest tightness, was found to have positive flu swab. normal ekg, neg troponin, unremarkable cxr at outside facility. SOB, Cough, chest tightness H/o Asthma , h/o COPD ( no Home O2), Influenza - sob , cough , wheezing likely secondary to Asthma vs COPD exacerbation in setting of Influenza - Influenza A swab positive, afebrile unremarkable cxr , normal White ct at outside hospital - s/p failed outpatient treatment x 2wk of prednisone for presumed COPD exacerbation, s/p 2 wk treatment with Augmentin - F/u CBC, BMP, Troponin - F/u CXR - Start Tamiflu - Start Solumedrol - DuoNeb , Mucinex - O2 per protocol Hyponatremia - Na 119 at outside hospital - Repeat BMP Na 127, repeat this pm 130 - appears euvolemic - Start IV NS, monitor closely HTN - Restart home Losartan, Diltiazem HLD - Restart home Lipitor DVT Prophylaxis - Lovenox Code status: Full Disposition: med/surg Resident Physician Supervision Note: I interviewed and examined the patient. Discussed with Dr. Vargas and agree with findings and plan as documented in the note. Any exceptions or clarifications are listed here: None Documented By: Cricket Larson feeling better breathing better vitals noted nad breathing unlabored no pallor or icterus influenza - tamiflu hyponatremia - poor PO intake but was trying to stay hydrated - likely low solute/polydipsia - improving w Na - follow safe for med surg, maybe home 1-2 days Resident Tracking Resident Involvement: Resident Care Provided Care Provided: Adult Hospital Medicine
[2017-07-30 16:22] LABS: CALCIUM 8.8 mg/dl (8.5-10.1); CREATININE 0.94 mg/dl (0.60-1.20); POTASSIUM 4.2 mmol/L (3.5-5.1)
[2017-07-30] MEDS ORDERED: ATORVASTATIN 20 MG TAB PO SCH (21:00)
[2017-07-31] MEDS: SODIUM CHLORIDE 0.9% 1000ML 1,000 ML IV SCH (05:27)
[2017-07-31 05:37] VITALS: O2SAT 96
[2017-07-31 07:00] VITALS: BP 153/63; PULSE 69; TEMP 37.1; O2SAT 91
[2017-07-31 07:11] VITALS: PULSE 88; O2SAT 92
[2017-07-31] MEDS: ALBUT/IPRATROP 3MG/0.5MG NEB 3 ML VIAL INH SCH ×2 (07:11→12:00)
[2017-07-31] MEDS: LOSARTAN POTASSIUM 25 MG TAB PO SCH (07:25)
[2017-07-31] MEDS: BUDESONIDE/FORMOTEROL FUMARATE 160/4.5 60 PUFFS/INHALER INH SCH (07:25)
[2017-07-31] MEDS: MULTIVITAMIN TAB PO SCH (07:25)
[2017-07-31] MEDS: GUAIFENESIN 600 MG TABCR PO SCH (07:25)
[2017-07-31] MEDS: DILTIAZEM HCL 120 MG CAPCR PO SCH (07:26)
[2017-07-31] MEDS: PANTOprazole SOD 40 MG TAB PO SCH (07:26)
[2017-07-31] MEDS: ASPIRIN 81 MG ECTAB PO SCH (07:26)
[2017-07-31] MEDS: OSELTAMIVIR PHOSPHATE 75 MG CAP PO SCH (07:26)
[2017-07-31] MEDS: ENOXAPARIN 40 MG/0.4 ML SYR SC SCH (07:27)
[2017-07-31] MEDS: PAROXETINE 20 MG TAB PO SCH (07:30)
[2017-07-31] MEDS: METHYLPREDNISOLONE IV 40 MG in SYRINGE 0 ML IV SCH (07:49)
[2017-07-31 08:03] VITALS: O2SAT 92
[2017-07-31 08:11] LABS: CALCIUM 8.5 mg/dl (8.5-10.1); CREATININE 0.8 mg/dl (0.60-1.20); POTASSIUM 3.9 mmol/L (3.5-5.1)
[2017-07-31] MEDS ORDERED: TMF75 PO ×2 (09:26→13:14)
[2017-07-31] MEDS ORDERED: PRED50TA PO ×2 (09:26→13:14)
--- NOTE | 2017-07-31 09:31 | Discharge Instructions ---
Discharge Instructions Date of Service Jul 31, 2017. Admission Reason for Admission: Low Sodium, Flu Discharge Discharge Diagnosis / Problem: Influenza, Asthma Exaccerbation Discharge Goals Goal(s): Decrease discomfort, Improve function, Improve disease control Activity Recommendations Activity Limitations: resume your previous activity Exercise/Sports Limitations: as tolerated Shower/Bathe: no limitations Driving or Machine Use: no limitations . Instructions / Follow-Up Instructions / Follow-Up You were admitted because of influenza, which unfortunately cause an worsening of your asthma. We started treatment with Tamiflu in the hospital as well as steroids and nebulizer treatments to help you with your breathing. You did well over 48 hours and we feel that you are safe to be discharged home. You are still recovering from your illness so when you go home, please do the following: - Please continue taking your albuterol inhaler every 4-6 hours on a scheduled basis for the next 1-2 days. Then you can gradual decrease this to using it only as needed. - Continue taking your Symbicort inhaler. This is a chronic controller medication. You should take this daily as directed whether you feel or sick. - We will continue steroids for an additional 5 days after your leave. - You have 3 day of Tamiflu remaining in your 5 day course. This may reduce your flu symptoms by 12-24 hours. If your symptoms fail to improve, acutely worsen, please seek medical attention immediately by either calling your primary care provider or going to your nearest emergency department. Otherwise, please see your primary care provider within 1 week to ensure that your symptoms continue to improve. It was a pleasure to be involved in your care and we wish you all the best. Current Hospital Diet Patient's current hospital diet: Regular Diet Discharge Diet Recommended Diet: AHA Diet (Heart Healthy) Pending Studies Studies pending at discharge: no Medical Emergencies . Who to Call and When: Medical Emergencies: If at any time you feel your situation is an emergency, please call 911 immediately. . Non-Emergent Contact Non-Emergency issues call your: Primary Care Provider Call Non-Emergent contact if: temperature is above 101.5, you have any medication questions . . "Provider Documentation" section prepared by Jonathan Meade. . VTE Core Measure Inpt VTE Proph given/why not?: Enoxaparin (Lovenox)SQ
[2017-07-31 09:37] VITALS: BP 153/63; PULSE 88; TEMP 37.1; O2SAT 92
--- NOTE | 2017-07-31 17:55 | Discharge Summary ---
Discharge Summary Date of Service Jul 31, 2017. Discharge Summary Admission Date: Jul 29, 2017 at 22:12 Discharge Date: Jul 31, 2017 Discharge Disposition: Home Principal Diagnosis: influenza, hypoxia Immunizations: Have You Had Influenza Vaccine: N/A History of Tetanus Vaccine?: Yes Tetanus Immunization Date: Jan 20, 2006 History of Pneumococcal: Yes Pneumococcal Date: Jan 20, 2011 History of Hepatitis B Vaccine: No Procedures: Last Resulted CBC 07/29/17 23:11 Red Blood Count 4.20, Mean Corpuscular Volume 88.1, Mean Corpuscular Hemoglobin 31.7, Mean Corpuscular Hemoglobin Concent 35.9, Mean Platelet Volume 9.1, Neutrophils (%) (Auto) 92.5, Lymphocytes (%) (Auto) 4.5, Monocytes (%) (Auto) 2.1, Eosinophils (%) (Auto) 0.0, Basophils (%) (Auto) 0.0, Neutrophils # (Auto) 3.05, Lymphocytes # (Auto) 0.15, Monocytes # (Auto) 0.07, Eosinophils # (Auto) 0.00, Basophils # (Auto) 0.00 Last Resulted BMP 07/31/17 07:17 Medication Reconciliation New Medications: Prednisone (Prednisone) 50 Mg Tab 50 MG PO DAILY for 5 Days, #5 TAB Start on 08/01/2017: 1 tab daily x 5 days, then STOP Oseltamivir Phosphate (Tamiflu) 75 Mg Cap 75 MG PO BID for 3 Days, #6 CAP Continued Medications: Albuterol Sulfate (Proventil Hfa) 108 Mcg/Act Aer 2 PUFFS INH Q4H PRN for RN Alprazolam (Xanax) 0.5 Mg Tab 0.25 MG PO Q12 PRN for Anxiety and/or Sedation, TAB Aspirin (Aspirin EC Low Dose) 81 Mg Ectab 81 MG PO Q12 for 30 Days Atorvastatin (Lipitor) 20 Mg Tab 20 MG PO QPM, TAB Budesonide/Formoterol Fumarate (Symbicort 160-4.5 Mcg/Act) 60 Puffs/Inhaler Aero 1 PUFF INH BID Diltiazem Hcl (Diltiazem Hcl) 120 Mg Tab 120 MG PO QAM Ipratropium-Albuterol (Duoneb) 3 Ml Nebu 1 TREATMENT INH QID, INHA Lansoprazole (Prevacid) 15 Mg Capcr 15 MG PO BID Losartan Potassium (Cozaar) 50 Mg Tab 25 MG PO DAILY for 30 Days, #15 TAB 5 Refills Multivitamin (Multivitamin) Tab 1 TAB PO QAM, TAB Paroxetine (Paxil) 20 Mg Tab 20 MG PO QAM, TAB Discharge Exam Physical Exam: General Appearance: no apparent distress Eyes: EOMI ENT: hearing grossly normal Neck: trachea midline Respiratory/Chest: no respiratory distress, no accessory muscle use, + pertinent finding (walking halls, pulse ox 93-95) Extremities: normal inspection, no pedal edema, normal range of motion 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, alert, normal mood/affect Hospital Course SOB, hypoxia Cough, chest tightness H/o Asthma , h/o COPD ( no Home O2), Influenza - sob , cough , wheezing likely secondary to Asthma vs COPD exacerbation in setting of Influenza - Influenza A swab positive, afebrile unremarkable cxr , normal White ct at outside hospital - s/p failed outpatient treatment x 2wk of prednisone for presumed COPD exacerbation, s/p 2 wk treatment with Augmentin - finish tamiflu, taper steroids - hypoxia improved - stable for home Hyponatremia - Na 119 at outside hospital - improved w rehydration - gave hx of poor PO intake as it relates to the flu - now improved. BMP as outpt later this week HTN - Restart home Losartan, Diltiazem HLD - Restart home Lipitor DVT Prophylaxis - Lovenox utilzied during this stay Code status: Full Disposition: stable for home Total Time Spent: Less than 30 minutes This includes examination of the patient, discharge planning, medication reconciliation, and communication with other providers. Discharge Instructions Please refer to the electronic Patient Visit Report (Discharge Instructions) for additional information.
== END 2017-07-31 12:35 | disposition home or self-care (01) | DRG 194 ==
LOC: C.2E 22:12 → ENRESERV 07-30 15:27 → C.MS2W 07-30 16:30
PROVIDERS: ADMIT Family Medicine; ATTEND Family Medicine
DX: J10.1 Influenza due to other identified influenza virus with other respiratory manifestations (principal); J44.1 Chronic obstructive pulmonary disease with (acute) exacerbation; E87.1 Hypo-osmolality and hyponatremia; I10 Essential (primary) hypertension; E78.5 Hyperlipidemia, unspecified; F41.9 Anxiety disorder, unspecified; J45.909 Unspecified asthma, uncomplicated; F32.9 Major depressive disorder, single episode, unspecified; Z87.891 Personal history of nicotine dependence; Z85.118 Personal history of other malignant neoplasm of bronchus and lung; Z79.82 Long term (current) use of aspirin; Z90.710 Acquired absence of both cervix and uterus; Z91.09 Other allergy status, other than to drugs and biological substances; Z80.9 Family history of malignant neoplasm, unspecified; Z82.49 Family history of ischemic heart disease and other diseases of the circulatory system

== ENCOUNTER 2018-08-13 17:05 | Inpatient (IN) ==
[~2018-08-13 17:05] MED LIST changes: -ALBUAER INH; -ALPR-411 PO; -ASPEC81 PO; -ATOR-22 PO; -DILT120T3 PO; +FILGRASTIM 480 MCG/1.6 ML VIAL SC ONE; -IPRASOL4 INH; -LANS15CA6 PO; -LOSA50TA6 PO; -MULT-506 PO; -PARO1TAB27 PO; -SYMIN INH
[2018-08-13] MEDS ORDERED: CEFEPIME 2,000 MG/12.5 ML VIAL IV STA (17:40)
[2018-08-13] MEDS ORDERED: ACETAMINOPHEN 500 MG TAB PO STA (17:43)
[2018-08-13] MEDS ORDERED: ALBUT/IPRATROP 3MG/0.5MG NEB 3 ML VIAL NEB STA (17:43)
[2018-08-13] MEDS ORDERED: SODIUM CHLORIDE 0.9% 1000ML 1,000 ML IV SCH (17:45)
[2018-08-13] MEDS ORDERED: SODIUM CHLORIDE 0.9% 1000ML 1,000 ML IV ONE (17:56)
[2018-08-13 18:13] LABS: INR 1.4 (0.9-1.1); Partial Thromboplastin Ratio 1.1; Partial Thromboplastin Time 28.5 Seconds (21.0-31.0); Prothrombin Time 13.7 Seconds (9.0-12.0)
[2018-08-13 18:15] LABS: Albumin Level 2.4 gm/dl (3.4-5.0); BUN Creatinine Ratio 16.4 (10-20); Calcium 8.5 mg/dl (8.5-10.1); Creatinine Clr Calc Pharmacy 44.5 ml/min; Est GFR (African American) 58.3; Est GFR (Non-African American) 50.3; Potassium 3.3 mmol/L (3.5-5.1)
[2018-08-13 18:17] LABS: Albumin Globulin Ratio 0.5 (0.9-2); Bilirubin,Total 0.9 mg/dl (0.2-1); Globulin 4.5 gm/dl (2.5-4.0); Total Protein 6.9 gm/dl (6.4-8.2)
[2018-08-13 18:28] LABS: Appearance Urine Clear (Clear); Bilirubin Urine Negative (Negative); Blood Urine Negative (Negative); Color Urine Yellow; Glucose Urine UA Negative (Negative); Ketones Urine Negative (Negative); Leukocyte Esterase Urine Negative (Negative); Nitrite Urine Negative (Negative); Protein Urine Negative (Negative); Specific Gravity Urine 1.011 (1.000-1.030); Urobilinogen Urine Negative (Negative)
--- NOTE | 2018-08-13 18:28 | XRay Report ---
XR chest 1V portable HISTORY: 73 years-old Female Sepsis acute fever with sepsis COMPARISON: Chest CT 07/23/2018, chest radiograph 08/02/2018 TECHNIQUE: Portable AP view of the chest FINDINGS: The patient is slightly rotated to the left. Asymmetric right hilar prominence is noted. Calcificatio n the thoracic aortic arch. No pneumothorax, large pleural effusion or overt pulmonary edema. Chronic blunting of the costophrenic angles with minimal subsegmental bibasilar atelectasis/scarring. Advanc ed right shoulder osteoarthritis. Left shoulder total joint arthroplasty. Multiple healed remote righ t-sided rib fractures. IMPRESSION: 1. Asymmetric right hilar prominence is likely accentuated by positioning. Attention at follow-up rec ommended. 2. Minimal subsegmental bibasilar atelectasis. The above report was generated using voice recognition software. It may contain grammatical, syntax o r spelling errors. Electronically signed by: Puneet Murguia M.D. 08/13/2018 6:26 PM
[2018-08-13 18:45] LABS: Influenza A virus by PCR Neg for Influ A (Neg); Influenza B virus by PCR Neg for Influ B (Neg)
[2018-08-13 18:49] LABS: ALC (manual) 0.23 K/uL (1.2-3.4); Eosinophils # (manual) 0.02 K/uL (0-0.5); Hematocrit (blood only) 20.4 % (37-47); Hemoglobin 7.3 g/dL (12.0-16.0); Lymphocytes # (manual) 0.23 K/uL (1.2-3.4); Mean Corpuscular Hgb Conc 35.8 g/dL (32-36); Mean Corpuscular Volume 97.6 fL (80-100); Mean Platelet Volume 9.6 fL (7.4-10.4); Metamyelocytes # (manual) 0.05 K/uL (0-0); Nucleated RBC # (auto) 0.02 K/uL (0-0); Nucleated RBC % (auto) 1.4 %; Platelet Count 155 K/uL (130-400); RBC Morphology Unremarkable; RDW Coefficient of Variation 14.7 % (11.5-14.5); Red Blood Count 2.09 M/uL (4.2-5.4); White Blood Count 1.54 K/uL (4.8-10.8)
[2018-08-13] MEDS ORDERED: VANCOMYCIN HCL 1,500 MG in SODIUM CHLORIDE 0.9% 500 ML IV ONE (18:52)
[2018-08-13] MEDS ORDERED: VANCOMYCIN CONSULT ACTIVE PRN (18:52)
[2018-08-13] MEDS ORDERED: SODIUM CHLORIDE 0.9% 1000ML 500 ML IV ONE (18:53)
--- NOTE | 2018-08-13 19:32 | Emergency Department Note ---
ED Visit Note I assisted in the care of this patient with Dr. Acharya . Resident Activity Tracking Resident Involvement: Resident Care Provided Care Provided: Adult ED : Sepsis Qualifiers: Sepsis type: sepsis due to unspecified organism Qualified Code(s): A41.9 - Sepsis, unspecified organism Neutropenia Qualifiers: Neutropenia type: unspecified Qualified Code(s): D70.9 - Neutropenia, unspecified
--- NOTE | 2018-08-13 19:49 | History & Physical Report ---
Date of Service August 13, 2018 Assessment & Plan (1) Neutropenic sepsis: Ms. Arellano is a 73-year-old very pleasant female with a history of lung cancer, COPD, hypertension, hyperlipidemia, anxiety, depression who presents to the emergency department with a 2-day history of feeling weak, with a productive cough and shortness of breath. ED course: DuoNeb, 1 g p.o. acetaminophen, 1.5 L normal saline bolus, 2 g IV cefepime, 1.5 g IV vancomycin -admit to med/onc -pt's ANC is 0.45. Meets criteria for neutropenic sepsis with fever of 39.1 C, tachycardia and tachypnea, with presumed source of infection being left leg cellulitis -Procal elevated at 1.04 -Continue IV cefepime and IV vancomycin for broad-spectrum coverage -Blood cultures drawn x2 and pending -UA without evidence of infection. 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 Pulido and Dr. Orellana -Dr. Pulido consulted Anemia -Patient states she has a history of anemia, and last required a blood transfusion several years ago. She is unsure of the cause of her anemia, however states that she does not have a history of a GI bleed -Hemoglobin 7.3 on admission, significantly decreased from her prior CBCs, which usually show a Hgb of 1011 -Given patient is dehydrated and hemoconcentrated, her hemoglobin level is likely even lower than this -We will order 2 units of irradiated, leukocyte reduced PRBCs, and transfuse 1 now -Recheck CBC in morning, can transfuse additional PRBCs as needed -Anemia likely related to recent chemotherapy, however will order B12 and folate levels with a.m. labs Hyponatremia -Sodium level 124 on admission, per review of chart, patient tends to run low -Likely a mixture of poor p.o. intake and may also have an element of SIADH with her lung pathology -Will order urine sodium, and serum and urine osmolality Hypokalemia -Potassium 3.3 on admission, replete in IV fluids and recheck BMP -Magnesium ordered with a.m. labs Elevated INR -PT elevated at 13.7 and INR elevated at 1.4 -Likely secondary to nutritional insufficiency, continue to monitor COPD -Xopenex nebulizers ordered every 6 hours scheduled, as well as home Symbicort -Consider steroid burst if patient does not improve Chronic pain -Continue home tramadol Hyperlipidemia -Continue home atorvastatin Hypertension -Continue home diltiazem -Hold home losartan given low BP -Continue home aspirin Depression and anxiety -Continue home paroxetine and as needed alprazolam GERD -Change home lansoprazole to pantoprazole CODE STATUS: DNR, per discussion with patient and family DVT prophylaxis: 5000 units of heparin every 12 hours Disposition: Admit to med/onc. Case management consult ordered. Patient living at home with 91-year-old mother, who has dementia. Patient may benefit from home health. F/E/N: Soft, bite-sized, regular diet ordered. Electrolyte abnormalities addressed above. Normal saline w/40 mEq of potassium chloride at 100 mls/hour x2 bags ordered. (2) Cellulitis of left lower extremity: (3) Hyponatremia: (4) Dehydration: (5) Pedal edema: (6) Cancer of right lung: (7) Depression: (8) Anxiety: (9) Hyperlipidemia: (10) Hypertension: (11) COPD (chronic obstructive pulmonary disease): (12) Anemia: History of Present Illness Primary Care Provider: Ari Renee DO Ms. Arellano is a 73-year-old, very pleasant female with a history of lung cancer, COPD, hypertension, hyperlipidemia, anxiety, depression who presents to the emergency department with a 2-day history of feeling weak, with a productive cough and shortness of breath. Ms. Arellano's lung cancer was diagnosed in 2012. She has received radiation for this. She started chemotherapy on May 13, 2018, and her last chemotherapy treatment was August 05. Her daughter states that she was quite weak after her last treatment, and Ms. Arellano notes that 2 days ago, she felt even weaker, and developed a productive cough. She states that she was short of breath even with minimal exertion. She does not wear oxygen at home. She denies fever, chills, chest pain, or any other URI symptoms. She does have a history of COPD, and has used her inhalers and nebulizers at home, however this has not helped her symptoms much. She states that she was having trouble with wheezing a couple of weeks ago, and was given a steroid burst to help with this. Her daughter states that she never seemed to fully recover, and is now wheezing again at home. Of note, she was recently seen in the emergency department for bilateral leg swelling. She was prescribed Lasix for this, however her daughter notes that her legs have looked more swollen, and that the left one has started to look more red, and that Ms. Arellano has been complaining of more pain over that area. She follows with Dr. Pulido for her lung cancer. Of note, she was a prior smoker. She quit 40 years ago, but did smoke a pack per day for 15 years. She denies use of alcohol or recreational drugs. She lives at home with her 91-year-old mother, who has dementia. She states that she has home health that comes in a couple of times a week to help her mother, but she states that she does not have help herself. Her daughter lives approximately 30 minutes away, and calls daily to make sure that she is okay. He also has a brother who checks in on her once in a while. Allergies Allergy/AdvReac Type Severity Reaction Status Date / Time hydrochlorothiazide AdvReac Intermediate DIZZY, Verified 08/13/18 17:38 "LOOPY" FEELING Home Medications Home Medications Medication Instructions Recorded Confirmed Type Symbicort 1 puff INHALATION BID 03/27/18 08/13/18 History albuterol sulfate [Proventil HFA] 2 puff INHALATION Q6H PRN 03/27/18 08/13/18 History alprazolam 0.25 mg PO BID PRN 03/27/18 08/13/18 History aspirin 81 mg PO QAM 03/27/18 08/13/18 History atorvastatin 20 mg PO QPM 03/27/18 08/13/18 History diltiazem HCl 120 mg PO QAM 03/27/18 08/13/18 History hydrocodone-homatropine [Hydromet] 5 ml PO Q4H PRN 03/27/18 08/13/18 History ipratropium-albuterol 3 ml INHALATION QID 03/27/18 08/13/18 History lansoprazole [Prevacid] 15 mg PO BID 03/27/18 08/13/18 History losartan 50 mg PO QAM 03/27/18 08/13/18 History multivitamin 1 tab PO QAM 03/27/18 08/13/18 History paroxetine HCl 20 mg PO QAM 03/27/18 08/13/18 History sucralfate 100 mg/mL oral 5 ml PO QID #420 ml 06/19/18 08/13/18 Rx suspension tramadol 50 mg tablet 50 mg PO Q8H PRN #30 tab 07/21/18 08/13/18 Rx furosemide [Lasix] 20 mg PO DAILY #3 tab 08/02/18 08/13/18 Rx Past Med/Surg History Medical History Cancer of right lung (Acute) 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 Radiation completed June 25, 2018. She received 6000 cGy. Difficult intubation LEFT FOOT RECONSTRUCTION= 12/28/16= GLIDESCOPE# 3 ETT 7.0 AT [facility] Hypertension (Chronic) Asthma (Chronic) COPD (chronic obstructive pulmonary disease) (Chronic) Hyperlipidemia (Chronic) Anxiety (Chronic) Depression (Chronic) Anemia (Chronic) Anxiety (Chronic) Asthma (Chronic) COPD (chronic obstructive pulmonary disease) (Chronic) Depression (Chronic) Dysphagia (Chronic) Hyperlipidemia (Chronic) Hypertension (Chronic) Irritable bowel disease (Chronic) Mediastinal lymphadenopathy (Chronic) Obesity (Chronic) Lung nodules Surgical History S/P appendectomy (Chronic) S/P hysterectomy (Chronic) H/O: hysterectomy (Acute) History of appendectomy (Resolved) as teenager History of bronchoscopy (Resolved) Multiple History of cataract surgery (Resolved) 2011 - Bilat History of colonoscopy (Resolved) 2017 Hx of abdominal hysterectomy (Resolved) 1972 Hx of foot surgery (Resolved) 2014 & 2017 - LEFT X2 Hx of repair of rotator cuff (Resolved) 2008 - RIGHT Hx of total shoulder replacement (Resolved) 2015 - LEFT Family History Mother Dementia Father , Passed age 67 of Lung Cancer (Heavy Smoker) Lung cancer Brother , Passed in 68 of Liver Cancer Liver cancer Brother , Passed in 60's of AR Heart attack Brother COPD (chronic obstructive pulmonary disease) Sister No problems noted. Son No problems noted. Son No problems noted. Son No problems noted. Son No problems noted. Daughter No problems noted. Social History Communication Ability: Effective Beliefs That Will Affect Care: None marital status: Current Living Situation: Family current occupational status: retired current occupation: Retired from [employer] Other Information That Helps Us Care for You: No Feels Safe at Home: Yes Safety Concerns: Feels Safe At This Time Smoking Status: Never smoker Hx Alcohol Use: No Hx Substance Use: No caffeine: Yes (1 pot of coffee/day ) Review of Systems Constitutional: + body aches, + malaise, + weakness and + anorexia; no fever and no chills Ear, Nose, Mouth, Throat: + dry mouth; no nasal congestion, no nasal discharge and no sore throat Respiratory: + cough, + dyspnea, + sputum production and + wheezing; no hemoptysis Cardiovascular: + edema; no chest pain, no palpitations and no syncope Gastrointestinal: no abdominal pain, no nausea, no vomiting and no change in bowel habits Genitourinary (Female): no dysuria and no urinary frequency Integumentary: + erythema (Left leg) Neurologic: no localized weakness Physical Exam Vital Signs (Past 24 Hours): Last Vital Signs Temp 39.1 C H 08/13/18 17:08 Pulse 119 H 08/13/18 18:30 Resp 24 08/13/18 18:30 BP 177/80 H 08/13/18 18:30 Pulse Ox 97 08/13/18 18:42 Constitutional: + ill appearing and + obese Eyes: PERRL, conjunctivae normal, anicteric sclerae ENMT: external ear and nose normal, oropharynx normal mucous membranes dry Respiratory: + cough Auscultation: + diminished lung sounds (Coarse lung sounds bilaterally) and + wheezes Conversational dyspnea appreciated Cardiovascular: Rate/Rhythm: regular rhythm and + tachycardic Vessels: radial pulses present Extremities: + pedal edema (1+ edema bilaterally) Gastrointestinal (Abdomen): Percussion/Palpation: abdomen soft; abdomen nontender, no guarding and abdomen not rigid Skin: Bilateral 1+ edema to lower extremities. Left leg with erythema over anterior aspect of calf, also tender and warm to touch. Psychiatric: A+Ox3, euthymic affect Results & Data Laboratory Results Laboratory Results - last 24 hr 08/13/18 08/13/18 08/13/18 17:25 17:25 17:25 WBC 1.54 L RBC 2.09 L Hgb 7.3 L Hct 20.4 L* MCV 97.6 MCH 34.9 H MCHC 35.8 RDW Std Deviation 52.0 H RDW Coeff of [place] 14.7 H Plt Count 155 MPV 9.6 Absolute Nucleated RBC 0.02 H Nucleated RBC % (auto) 1.4 Neutrophils % (Manual) 29.0 Lymphocytes % (Manual) 15.0 Monocytes % (Manual) 52.0 Eosinophils % (Manual) 1.0 Metamyelocytes % (Man) 3.0 Neutrophils # (Manual) 0.45 L Total Absolute Neuts 0.45 L* Lymphocytes # (Manual) 0.23 L Total Abs Lymphocytes 0.23 L Monocytes # (Manual) 0.80 H Eosinophils # (Manual) 0.02 Metamyelocytes # (Man) 0.05 H RBC Morphology Unremarkable PT 13.7 H INR 1.4 H APTT 28.5 PTT Ratio 1.1 Sodium 124 L Potassium 3.3 L Chloride 84 L Carbon Dioxide 31 Anion Gap 9.0 BUN 18 Creatinine 1.09 Est Cr Clr Drug Dosing 44.5 Est GFR ( Amer) 58.3 Est GFR (Non-Af Amer) 50.3 BUN/Creatinine Ratio 16.4 Glucose 149 H Osmolality POC Lactic Acid [place] Calcium 8.5 Total Bilirubin 0.9 AST 31 ALT 35 Alkaline Phosphatase 106 Total Protein 6.9 Albumin 2.4 L Globulin 4.5 H Albumin/Globulin Ratio 0.5 L Lipase 49 L Procalcitonin Urine Color Urine Appearance Urine pH Ur Specific [place] Urine Protein Urine Glucose (UA) Urine Ketones Urine Blood Urine Nitrite Urine Bilirubin Urine Urobilinogen Ur Leukocyte Esterase Influenza Type A (PCR) Influenza Type B (PCR) Blood Type Antibody Screen Crossmatch 08/13/18 08/13/18 08/13/18 17:25 17:30 18:15 WBC RBC Hgb Hct MCV MCH MCHC RDW Std Deviation RDW Coeff of [place] Plt Count MPV Absolute Nucleated RBC Nucleated RBC % (auto) Neutrophils % (Manual) Lymphocytes % (Manual) Monocytes % (Manual) Eosinophils % (Manual) Metamyelocytes % (Man) Neutrophils # (Manual) Total Absolute Neuts Lymphocytes # (Manual) Total Abs Lymphocytes Monocytes # (Manual) Eosinophils # (Manual) Metamyelocytes # (Man) RBC Morphology PT INR APTT PTT Ratio Sodium Potassium Chloride Carbon Dioxide Anion Gap BUN Creatinine Est Cr Clr Drug Dosing Est GFR ( Amer) Est GFR (Non-Af Amer) BUN/Creatinine Ratio Glucose Osmolality POC Lactic Acid [place] 1.02 Calcium Total Bilirubin AST ALT Alkaline Phosphatase Total Protein Albumin Globulin Albumin/Globulin Ratio Lipase Procalcitonin 1.04 H Urine Color Yellow Urine Appearance Clear Urine pH 6.0 Ur Specific [place] 1.011 Urine Protein Negative Urine Glucose (UA) Negative Urine Ketones Negative Urine Blood Negative Urine Nitrite Negative Urine Bilirubin Negative Urine Urobilinogen Negative Ur Leukocyte Esterase Negative Influenza Type A (PCR) Influenza Type B (PCR) Blood Type Antibody Screen Crossmatch 08/13/18 08/13/18 08/13/18 22:20 22:20 Unknown WBC RBC Hgb Hct MCV MCH MCHC RDW Std Deviation RDW Coeff of [place] Plt Count MPV Absolute Nucleated RBC Nucleated RBC % (auto) Neutrophils % (Manual) Lymphocytes % (Manual) Monocytes % (Manual) Eosinophils % (Manual) Metamyelocytes % (Man) Neutrophils # (Manual) Total Absolute Neuts Lymphocytes # (Manual) Total Abs Lymphocytes Monocytes # (Manual) Eosinophils # (Manual) Metamyelocytes # (Man) RBC Morphology PT INR APTT PTT Ratio Sodium Potassium Chloride Carbon Dioxide Anion Gap BUN Creatinine Est Cr Clr Drug Dosing Est GFR ( Amer) Est GFR (Non-Af Amer) BUN/Creatinine Ratio Glucose Osmolality 265 L POC Lactic Acid [place] Calcium Total Bilirubin AST ALT Alkaline Phosphatase Total Protein Albumin Globulin Albumin/Globulin Ratio Lipase Procalcitonin Urine Color Urine Appearance Urine pH Ur Specific [place] Urine Protein Urine Glucose (UA) Urine Ketones Urine Blood Urine Nitrite Urine Bilirubin Urine Urobilinogen Ur Leukocyte Esterase Influenza Type A (PCR) Neg for Influ A Influenza Type B (PCR) Neg for Influ B Blood Type A Positive Antibody Screen NEGATIVE Crossmatch See Detail Supervising Physician Co-Signing Physician Notes Attending addendum: I have physically seen this patient, have supervised the medical residents activities, and agree with the H&P unless as otherwise noted. Assessment and Plan: Neutropenic fever/sepsis/pneumonia involving right lung/cellulitis of left lower extremity-- Neutropenic precautions. Continue vancomycin IV and cefepime IV begun in the ED. ANC is 450. Given Neupogen 480 mcg subcu x1 in the ED. Follow daily CBC with differential. Follow blood cultures. Bilateral lower extremity/pedal edema-- Albumin 25 g IV x2. Follow clinical examination. Symptomatic anemia-- Hemoglobin 7.3, significantly lower than previous. No sign of blood loss. Likely secondary to chemo and infection. Give 2 units PRBCs tonight and repeat labs in the a.m. Remainder of orders and notations as noted. Resident Activity Tracking Resident Involvement: Resident Care Provided Care Provided: Adult Hospital Medicine
--- NOTE | 2018-08-13 19:54 | Emergency Department Note ---
Entered by Digna Camara acting as a scribe for History of Present Illness General Chief complaint: Shortness of Breath/Dyspnea Stated complaint: SOB - CHEMO PT Time Seen by Provider: 08/13/18 17:19 Source: patient Mode of arrival: ambulatory Limitations: no limitations History of Present Illness Provider complaint: weak Onset (ago): day(s) 2 Location: head (generalized) Pain Consistency: + other (worsening) Maximum Pain Intensity: 10 Current Pain Intensity: 5 Quality: + other (weakness) Associated symptoms: + cough and + nausea/vomiting The patient is a 73 year old female who presents to the Emergency Room with complaints of a worsening weakness that began 2 days ago. The patient reports that she is currently on her second round of chemotherapy for her history of lung cancer and notes that her last session was 8 days ago. She states that she has been sick for the past 2 days and reports her symptoms have worsened today. She notes that she has felt weak and short of breath but denies any fevers or chills. She also denies any headaches, chest pain, abdominal pain, diarrhea, hematochezia, hematuria, or constipation. She states that she has had 2 episodes of vomiting as well as a cough and increased thirst. The patient also reports that she was taking antibiotics 3 weeks ago for a COPD exacerbation but notes she is not currently taking antibiotics. Home Medications Home Medications Medication Instructions Recorded Confirmed Type Symbicort 1 puff INHALATION BID 03/27/18 08/13/18 History albuterol sulfate [Proventil HFA] 2 puff INHALATION Q6H PRN 03/27/18 08/13/18 History alprazolam 0.25 mg PO BID PRN 03/27/18 08/13/18 History aspirin 81 mg PO QAM 03/27/18 08/13/18 History atorvastatin 20 mg PO QPM 03/27/18 08/13/18 History diltiazem HCl 120 mg PO QAM 03/27/18 08/13/18 History hydrocodone-homatropine [Hydromet] 5 ml PO Q4H PRN 03/27/18 08/13/18 History ipratropium-albuterol 3 ml INHALATION QID 03/27/18 08/13/18 History lansoprazole [Prevacid] 15 mg PO BID 03/27/18 08/13/18 History losartan 50 mg PO QAM 03/27/18 08/13/18 History multivitamin 1 tab PO QAM 03/27/18 08/13/18 History paroxetine HCl 20 mg PO QAM 03/27/18 08/13/18 History sucralfate 100 mg/mL oral 5 ml PO QID #420 ml 06/19/18 08/13/18 Rx suspension tramadol 50 mg tablet 50 mg PO Q8H PRN #30 tab 07/21/18 08/13/18 Rx furosemide [Lasix] 20 mg PO DAILY #3 tab 08/02/18 08/13/18 Rx Allergies Allergy/AdvReac Type Severity Reaction Status Date / Time hydrochlorothiazide AdvReac Intermediate DIZZY, Verified 08/13/18 17:38 "LOOPY" FEELING Past Med/Surg History Medical History Cancer of right lung (Acute) 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 Radiation completed June 25, 2018. She received 6000 cGy. Difficult intubation LEFT FOOT RECONSTRUCTION= 12/28/16= GLIDESCOPE# 3 ETT 7.0 AT [facility] Hypertension (Chronic) Asthma (Chronic) COPD (chronic obstructive pulmonary disease) (Chronic) Hyperlipidemia (Chronic) Anxiety (Chronic) Depression (Chronic) Anemia (Chronic) Anxiety (Chronic) Asthma (Chronic) COPD (chronic obstructive pulmonary disease) (Chronic) Depression (Chronic) Dysphagia (Chronic) Hyperlipidemia (Chronic) Hypertension (Chronic) Irritable bowel disease (Chronic) Mediastinal lymphadenopathy (Chronic) Obesity (Chronic) Lung nodules Surgical History S/P appendectomy (Chronic) S/P hysterectomy (Chronic) H/O: hysterectomy (Acute) History of appendectomy (Resolved) as teenager History of bronchoscopy (Resolved) Multiple History of cataract surgery (Resolved) 2011 - Bilat History of colonoscopy (Resolved) 2017 Hx of abdominal hysterectomy (Resolved) 1972 Hx of foot surgery (Resolved) 2014 & 2017 - LEFT X2 Hx of repair of rotator cuff (Resolved) 2008 - RIGHT Hx of total shoulder replacement (Resolved) 2015 - LEFT Family History Mother Dementia Father , Passed age 67 of Lung Cancer (Heavy Smoker) Lung cancer Brother , Passed in 68 of Liver Cancer Liver cancer Brother , Passed in 60's of [place] Heart attack Brother COPD (chronic obstructive pulmonary disease) Sister No problems noted. Son No problems noted. Son No problems noted. Son No problems noted. Son No problems noted. Daughter No problems noted. Social History Preferred Language: Korean Communication Ability: Effective Receiver/Laborer Required: No Beliefs That Will Affect Care: None marital status: Current Living Situation: Family current occupational status: retired current occupation: Retired from [employer] Other Information That Helps Us Care for You: No Feels Safe at Home: Yes Safety Concerns: Feels Safe At This Time Smoking Status: Never smoker Hx Alcohol Use: No Hx Substance Use: No caffeine: Yes (1 pot of coffee/day ) Review of Systems See HPI for pertinent positives & negatives. and A total of 10 systems reviewed and were otherwise negative Physical Exam Vital Signs Vital Signs - 24 hr 08/13/18 17:08 08/13/18 17:24 08/13/18 17:30 Temperature 39.1 C H Temperature Source Oral Sepsis Recent Fever Within 48 Hours Yes Sepsis Action Taken by Nursing No Action Required Pulse Rate 139 H 129 H Pulse Rate [Bilateral] Pulse Rate from SpO2 Sensor 129 H Pulse Rhythm Regular Pulse Rhythm [Bilateral] Pulse Strength [Bilateral] Respiratory Rate 92 H 27 H Respiratory Effort / Characteristics Non-Labored Spontaneous Respiratory Depth Normal Respiratory Pattern Regular Blood Pressure 117/72 152/86 H Blood Pressure [Left Arm] Blood Pressure [Right Arm] Blood Pressure Mean 87 108 Blood Pressure Mean [Left Arm] Blood Pressure Mean [Right Arm] Blood Pressure Position [Right Arm] Pulse Oximetry 92 92 91 Oxygen Delivery Method Room Air Room Air Oxygen Flow Rate 08/13/18 17:31 08/13/18 17:40 08/13/18 17:50 Temperature Temperature Source Sepsis Recent Fever Within 48 Hours Sepsis Action Taken by Nursing Pulse Rate 126 H 127 H 125 H Pulse Rate [Bilateral] Pulse Rate from SpO2 Sensor 126 H 127 H 125 H Pulse Rhythm Pulse Rhythm [Bilateral] Pulse Strength [Bilateral] Respiratory Rate 29 H 34 H 32 H Respiratory Effort / Characteristics Respiratory Depth Respiratory Pattern Blood Pressure Blood Pressure [Left Arm] Blood Pressure [Right Arm] Blood Pressure Mean Blood Pressure Mean [Left Arm] Blood Pressure Mean [Right Arm] Blood Pressure Position [Right Arm] Pulse Oximetry 90 90 89 L Oxygen Delivery Method Room Air Oxygen Flow Rate 08/13/18 17:55 08/13/18 18:00 08/13/18 18:01 Temperature Temperature Source Sepsis Recent Fever Within 48 Hours Sepsis Action Taken by Nursing Pulse Rate 125 H 124 H Pulse Rate [Bilateral] Pulse Rate from SpO2 Sensor 120 H 123 H Pulse Rhythm Pulse Rhythm [Bilateral] Pulse Strength [Bilateral] Respiratory Rate 33 H 28 H Respiratory Effort / Characteristics Respiratory Depth Respiratory Pattern Blood Pressure 148/77 H Blood Pressure [Left Arm] Blood Pressure [Right Arm] Blood Pressure Mean 100 Blood Pressure Mean [Left Arm] Blood Pressure Mean [Right Arm] Blood Pressure Position [Right Arm] Pulse Oximetry 98 91 91 Oxygen Delivery Method Nasal Cannula Oxygen Flow Rate 2 08/13/18 18:10 08/13/18 18:20 08/13/18 18:30 Temperature Temperature Source Sepsis Recent Fever Within 48 Hours Sepsis Action Taken by Nursing Pulse Rate 126 H 121 H 119 H Pulse Rate [Bilateral] Pulse Rate from SpO2 Sensor 121 H 120 H 117 H Pulse Rhythm Pulse Rhythm [Bilateral] Pulse Strength [Bilateral] Respiratory Rate 28 H 27 H 24 Respiratory Effort / Characteristics Respiratory Depth Respiratory Pattern Blood Pressure 177/80 H Blood Pressure [Left Arm] Blood Pressure [Right Arm] Blood Pressure Mean 112 Blood Pressure Mean [Left Arm] Blood Pressure Mean [Right Arm] Blood Pressure Position [Right Arm] Pulse Oximetry 98 96 100 Oxygen Delivery Method Nebulizer Oxygen Flow Rate 08/13/18 18:35 08/13/18 18:42 08/13/18 20:00 Temperature Temperature Source Sepsis Recent Fever Within 48 Hours Sepsis Action Taken by Nursing Pulse Rate Pulse Rate [Bilateral] 117 H Pulse Rate from SpO2 Sensor Pulse Rhythm Pulse Rhythm [Bilateral] Regular Pulse Strength [Bilateral] Normal Respiratory Rate 18 Respiratory Effort / Characteristics Non-Labored Spontaneous Respiratory Depth Normal Respiratory Pattern Blood Pressure Blood Pressure [Left Arm] Blood Pressure [Right Arm] 151/76 H Blood Pressure Mean Blood Pressure Mean [Left Arm] Blood Pressure Mean [Right Arm] 101 Blood Pressure Position [Right Arm] Lying Pulse Oximetry 94 97 96 Oxygen Delivery Method Room Air Nasal Cannula Room Air Oxygen Flow Rate 2 08/13/18 21:23 08/13/18 21:56 08/13/18 22:14 Temperature 36.7 C Temperature Source Axillary Sepsis Recent Fever Within 48 Hours Sepsis Action Taken by Nursing Pulse Rate 105 H Pulse Rate [Bilateral] 101 H Pulse Rate from SpO2 Sensor Pulse Rhythm Pulse Rhythm [Bilateral] Pulse Strength [Bilateral] Respiratory Rate 20 16 Respiratory Effort / Characteristics Non-Labored Respiratory Depth Respiratory Pattern Blood Pressure 137/73 Blood Pressure [Left Arm] 113/65 Blood Pressure [Right Arm] Blood Pressure Mean Blood Pressure Mean [Left Arm] 81 Blood Pressure Mean [Right Arm] Blood Pressure Position [Right Arm] Pulse Oximetry 97 91 Oxygen Delivery Method Nasal Cannula Nasal Cannula Nasal Cannula Oxygen Flow Rate 2 2 2 GENERAL: Patient is in no acute distress. HEENT: No acute trauma, normocephalic atraumatic, mucous membranes dry, no nasal congestion, no scleral icterus. NECK: No stridor, no adenopathy, no meningismus, trachea is midline. LUNGS: Scattered wheezes bilaterally with some occasional scattered rhonchi. Diminished breath sounds, no respiratory distress, breath sounds equal. HEART: Tachycardic with regular rhythm, no murmurs. ABDOMEN: Soft, nontender, bowel sounds positive, no hernias, no peritonitis. EXTREMITIES: Mild pedal edema bilaterally, left lower extremity is warm, erythema to ankle and foot, no drainage. No obvious trauma. RECTAL: Brown stool, heme negative. NEUROLOGIC: Oriented x 3, no acute motor or sensory deficits, no focal weakness. SKIN: No jaundice, no diaphoresis. Course 1750: Past medical records reviewed. The patient was evaluated in room D2A, and a complete history and physical examination were performed. 1900: I updated the patient's family on today's finding and the treatment plan. 1944: I reviewed the patient's case with Dr. Keen - [facility] Hospitalist. He will evaluate the patient for further management. Administered Medications Discontinued Medications Acetaminophen (Tylenol) 1,000 mg PO NOW STA Stop: 08/13/18 17:44 Last Admin: 08/13/18 18:18 Dose: 1,000 mg Documented by: [id number] Albuterol (Duoneb) 3 ml NEB NOW STA Stop: 08/13/18 17:44 Last Admin: 08/13/18 18:18 Dose: 3 ml Documented by: [id number] Cefepime HCl (Maxipime) 2,000 mg in 12.5 mls @ 3.125 mls/min IV NOW STA Stop: 08/13/18 17:43 Last Admin: 08/13/18 18:18 Dose: 3.125 mls/min Documented by: [id number] Sodium Chloride (Nss 1000ml) 1,000 mls @ 999 mls/hr IV .Q1H1M ERICKA Stop: 08/13/18 18:00 Last Admin: 08/13/18 18:27 Dose: Not Given Documented by: [id number] Sodium Chloride (Nss 1000ml) 1,000 mls @ 999 mls/hr IV .Q1H1M ONE Stop: 08/13/18 18:56 Last Infusion: 08/13/18 19:20 Dose: 0 mls/hr Documented by: [id number] Admin: 08/13/18 18:27 Dose: 999 mls/hr Documented by: [id number] Sodium Chloride (Nss 1000ml) 500 mls @ 999 mls/hr IV .Q31M ONE Stop: 08/13/18 19:23 Last Infusion: 08/13/18 19:53 Dose: 0 mls/hr Documented by: [id number] Admin: 08/13/18 19:23 Dose: 999 mls/hr Documented by: [id number] Vancomycin HCl 1,500 mg/ (Sodium Chloride) 530 mls @ 200 mls/hr IV NOW ONE Stop: 08/13/18 21:30 Last Infusion: 08/13/18 22:50 Dose: 0 mls/hr Documented by: [id number] Admin: 08/13/18 19:23 Dose: 200 mls/hr Documented by: [id number] Medical Decision Making Differential Diagnosis Differential Diagnosis includes: sepsis or bacteremia, dehydration, pneumonia, bronchitis, influenza, UTI, renal or liver failure, renal injury, cellulitis, and neutropenia. Medical Records Attestation: I reviewed the patient's medical records. Home Medications Current Medication List: was personally reviewed by me Laboratory Data Attestation: I reviewed the patient's lab results. Result diagrams: 08/13/18 17:25 08/13/18 17:25 Lab Results 08/13/18 08/13/18 08/13/18 Range/Units 17:25 17:25 17:25 WBC 1.54 L (4.8-10.8) K/uL RBC 2.09 L (4.2-5.4) M/uL Hgb 7.3 L (12.0-16.0) g/dL Hct 20.4 L* (37-47) % MCV 97.6 (80-100) fL MCH 34.9 H (25-34) pg MCHC 35.8 (32-36) g/dL RDW Std Deviation 52.0 H (36.4-46.3) fL RDW Coeff of Filemon 14.7 H (11.5-14.5) % Plt Count 155 (130-400) K/uL MPV 9.6 (7.4-10.4) fL Absolute Nucleated RBC 0.02 H (0-0) K/uL Nucleated RBC % (auto) 1.4 % Neutrophils % (Manual) 29.0 % Lymphocytes % (Manual) 15.0 % Monocytes % (Manual) 52.0 % Eosinophils % (Manual) 1.0 % Metamyelocytes % (Man) 3.0 % Neutrophils # (Manual) 0.45 L (1.4-6.5) K/uL Total Absolute Neuts 0.45 L* (1.4-6.5) K/uL Lymphocytes # (Manual) 0.23 L (1.2-3.4) K/uL Total Abs Lymphocytes 0.23 L (1.2-3.4) K/uL Monocytes # (Manual) 0.80 H (0.11-0.59) K/uL Eosinophils # (Manual) 0.02 (0-0.5) K/uL Metamyelocytes # (Man) 0.05 H (0-0) K/uL RBC Morphology Unremarkable PT 13.7 H (9.0-12.0) Seconds INR 1.4 H (0.9-1.1) APTT 28.5 (21.0-31.0) Seconds PTT Ratio 1.1 Sodium 124 L (136-145) mmol/L Potassium 3.3 L (3.5-5.1) mmol/L Chloride 84 L (98-107) mmol/L Carbon Dioxide 31 (21-32) mmol/L Anion Gap 9.0 (3-11) BUN 18 (7-18) mg/dl Creatinine 1.09 (0.6-1.2) mg/dl Est Cr Clr Drug Dosing 44.5 ml/min Est GFR ( Amer) 58.3 Est GFR (Non-Af Amer) 50.3 BUN/Creatinine Ratio 16.4 (10-20) Glucose 149 H (70-99) mg/dl Osmolality (280-300) mOsm/kg POC Lactic Acid [place] (0.90-1.70) mmol/L Calcium 8.5 (8.5-10.1) mg/dl Total Bilirubin 0.9 (0.2-1) mg/dl AST 31 (15-37) U/L ALT 35 (12-78) U/L Alkaline Phosphatase 106 (45-117) U/L Total Protein 6.9 (6.4-8.2) gm/dl Albumin 2.4 L (3.4-5.0) gm/dl Globulin 4.5 H (2.5-4.0) gm/dl Albumin/Globulin Ratio 0.5 L (0.9-2) Lipase 49 L (73-393) U/L Procalcitonin (0-0.5) ng/ml Urine Color Urine Appearance (Clear) Urine pH (4.5-7.5) Ur Specific [place] (1.000-1.030) Urine Protein (Negative) Urine Glucose (UA) (Negative) Urine Ketones (Negative) Urine Blood (Negative) Urine Nitrite (Negative) Urine Bilirubin (Negative) Urine Urobilinogen (Negative) Ur Leukocyte Esterase (Negative) Influenza Type A (PCR) (Neg) Influenza Type B (PCR) (Neg) Blood Type Antibody Screen Crossmatch 08/13/18 08/13/18 08/13/18 Range/Units 17:25 17:30 18:15 WBC (4.8-10.8) K/uL RBC (4.2-5.4) M/uL Hgb (12.0-16.0) g/dL Hct (37-47) % MCV (80-100) fL MCH (25-34) pg MCHC (32-36) g/dL RDW Std Deviation (36.4-46.3) fL RDW Coeff of Filemon (11.5-14.5) % Plt Count (130-400) K/uL MPV (7.4-10.4) fL Absolute Nucleated RBC (0-0) K/uL Nucleated RBC % (auto) % Neutrophils % (Manual) % Lymphocytes % (Manual) % Monocytes % (Manual) % Eosinophils % (Manual) % Metamyelocytes % (Man) % Neutrophils # (Manual) (1.4-6.5) K/uL Total Absolute Neuts (1.4-6.5) K/uL Lymphocytes # (Manual) (1.2-3.4) K/uL Total Abs Lymphocytes (1.2-3.4) K/uL Monocytes # (Manual) (0.11-0.59) K/uL Eosinophils # (Manual) (0-0.5) K/uL Metamyelocytes # (Man) (0-0) K/uL RBC Morphology PT (9.0-12.0) Seconds INR (0.9-1.1) APTT (21.0-31.0) Seconds PTT Ratio Sodium (136-145) mmol/L Potassium (3.5-5.1) mmol/L Chloride (98-107) mmol/L Carbon Dioxide (21-32) mmol/L Anion Gap (3-11) BUN (7-18) mg/dl Creatinine (0.6-1.2) mg/dl Est Cr Clr Drug Dosing ml/min Est GFR ( Amer) Est GFR (Non-Af Amer) BUN/Creatinine Ratio (10-20) Glucose (70-99) mg/dl Osmolality (280-300) mOsm/kg POC Lactic Acid [place] 1.02 (0.90-1.70) mmol/L Calcium (8.5-10.1) mg/dl Total Bilirubin (0.2-1) mg/dl AST (15-37) U/L ALT (12-78) U/L Alkaline Phosphatase (45-117) U/L Total Protein (6.4-8.2) gm/dl Albumin (3.4-5.0) gm/dl Globulin (2.5-4.0) gm/dl Albumin/Globulin Ratio (0.9-2) Lipase (73-393) U/L Procalcitonin 1.04 H (0-0.5) ng/ml Urine Color Yellow Urine Appearance Clear (Clear) Urine pH 6.0 (4.5-7.5) Ur Specific [place] 1.011 (1.000-1.030) Urine Protein Negative (Negative) Urine Glucose (UA) Negative (Negative) Urine Ketones Negative (Negative) Urine Blood Negative (Negative) Urine Nitrite Negative (Negative) Urine Bilirubin Negative (Negative) Urine Urobilinogen Negative (Negative) Ur Leukocyte Esterase Negative (Negative) Influenza Type A (PCR) (Neg) Influenza Type B (PCR) (Neg) Blood Type Antibody Screen Crossmatch 08/13/18 08/13/18 08/13/18 Range/Units 22:20 22:20 Unknown WBC (4.8-10.8) K/uL RBC (4.2-5.4) M/uL Hgb (12.0-16.0) g/dL Hct (37-47) % MCV (80-100) fL MCH (25-34) pg MCHC (32-36) g/dL RDW Std Deviation (36.4-46.3) fL RDW Coeff of Filemon (11.5-14.5) % Plt Count (130-400) K/uL MPV (7.4-10.4) fL Absolute Nucleated RBC (0-0) K/uL Nucleated RBC % (auto) % Neutrophils % (Manual) % Lymphocytes % (Manual) % Monocytes % (Manual) % Eosinophils % (Manual) % Metamyelocytes % (Man) % Neutrophils # (Manual) (1.4-6.5) K/uL Total Absolute Neuts (1.4-6.5) K/uL Lymphocytes # (Manual) (1.2-3.4) K/uL Total Abs Lymphocytes (1.2-3.4) K/uL Monocytes # (Manual) (0.11-0.59) K/uL Eosinophils # (Manual) (0-0.5) K/uL Metamyelocytes # (Man) (0-0) K/uL RBC Morphology PT (9.0-12.0) Seconds INR (0.9-1.1) APTT (21.0-31.0) Seconds PTT Ratio Sodium (136-145) mmol/L Potassium (3.5-5.1) mmol/L Chloride (98-107) mmol/L Carbon Dioxide (21-32) mmol/L Anion Gap (3-11) BUN (7-18) mg/dl Creatinine (0.6-1.2) mg/dl Est Cr Clr Drug Dosing ml/min Est GFR ( Amer) Est GFR (Non-Af Amer) BUN/Creatinine Ratio (10-20) Glucose (70-99) mg/dl Osmolality 265 L (280-300) mOsm/kg POC Lactic Acid [place] (0.90-1.70) mmol/L Calcium (8.5-10.1) mg/dl Total Bilirubin (0.2-1) mg/dl AST (15-37) U/L ALT (12-78) U/L Alkaline Phosphatase (45-117) U/L Total Protein (6.4-8.2) gm/dl Albumin (3.4-5.0) gm/dl Globulin (2.5-4.0) gm/dl Albumin/Globulin Ratio (0.9-2) Lipase (73-393) U/L Procalcitonin (0-0.5) ng/ml Urine Color Urine Appearance (Clear) Urine pH (4.5-7.5) Ur Specific [place] (1.000-1.030) Urine Protein (Negative) Urine Glucose (UA) (Negative) Urine Ketones (Negative) Urine Blood (Negative) Urine Nitrite (Negative) Urine Bilirubin (Negative) Urine Urobilinogen (Negative) Ur Leukocyte Esterase (Negative) Influenza Type A (PCR) Neg for Influ A (Neg) Influenza Type B (PCR) Neg for Influ B (Neg) Blood Type A Positive Antibody Screen NEGATIVE Crossmatch See Detail Imaging Data Radiologist's Impression: Radiology results as stated below per my review and the radiologist's interpretation: XR chest 1V portable HISTORY: 73 years-old Female Sepsis acute fever with sepsis COMPARISON: Chest CT 07/23/2018, chest radiograph 08/02/2018 TECHNIQUE: Portable AP view of the chest FINDINGS: The patient is slightly rotated to the left. Asymmetric right hilar prominence is noted. Calcification the thoracic aortic arch. No pneumothorax, large pleural effusion or overt pulmonary edema. Chronic blunting of the costophrenic angles with minimal subsegmental bibasilar atelectasis/scarring. Advanced right shoulder osteoarthritis. Left shoulder total joint arthroplasty. Multiple healed remote right-sided rib fractures. IMPRESSION: 1. Asymmetric right hilar prominence is likely accentuated by positioning. Attention at follow-up recommended. 2. Minimal subsegmental bibasilar atelectasis. The above report was generated using voice recognition software. It may contain grammatical, syntax or spelling errors. Electronically signed by: Puneet Murguia M.D. 08/13/2018 6:26 PM ECG Data Attestation: I personally reviewed and interpreted this ECG as follows: Indication: SOB/dyspnea Rate (beats per minute): 130 Rhythm: sinus tachycardia Findings: + other (artifact); no PVC and no ST elevation Blood Pressure Blood Pressure Findings: Elevated blood pressure Blood Pressure Disposition: further management by hospitalist MDM Narrative The patient is neutropenic. White count is 1.5. ANC is 0.45. She is anemic with a hemoglobin of 7.3. Rectal exam performed shows heme-negative stool. INR mildly elevated at 1.4. Renal panel testing shows a hyponatremia with a sodium of 124. No kidney failure. No hepatitis. No pancreatitis. Chest film shows some chronic change, no pneumonia. A right hilar mass was seen. Lactic acid level was not elevated making severe sepsis less likely. Pro-calcitonin was elevated slightly consistent with a bacterial infection. Urinalysis does not show infection. Influenza testing was negative. Blood cultures are pending. On exam, the patient appeared to have a left lower leg cellulitis. The patient received IV saline, she was given 1 L and then a cc bolus. She received IV cefepime and IV vancomycin as antibiotic coverage. She received oral Tylenol and a DuoNeb. The patient is septic by our criteria. The source appears to be a left lower extremity cellulitis. She is neutropenic. She requires a hospital stay. Patient does seem slightly improved since treatment here in the ED. I did speak to the patient and her family. Case management has been involved. The on-call hospitalist was consulted. Impression & Plan Sepsis, Dehydration, Hyponatremia, Neutropenia, Cellulitis of left lower extremity Critical Care Time I have personally spent 40 minutes of critical care time in the direct management of this patient. This includes bedside care, interpretation of diagnostic studies and testing, discussion with consultants, patient, and family members, and other required patient management activities. These 40 minutes is in excess of all separately billable procedures. Critical Care Time: Yes Total Critical Care Time: 40 Discharge Plan Visit Data *Final* Discharge Date/Time: 08/13/18 21:23 Chief Complaint: Shortness of Breath/Dyspnea Stated Complaint: SOB - CHEMO PT ED Provider: Gio Acharya ED Midlevel Provider: Guillermo Brasher Discharge Problem: Sepsis, Dehydration, Hyponatremia, Neutropenia, Cellulitis of left lower extremity Patient Disposition: Admitted As Inpatient Discharge Instructions Interventions: ED Discharge Assessment Last Done: 08/13/18 21:23 Discharge Problem: Sepsis Qualifiers: Sepsis type: sepsis due to unspecified organism Qualified Code(s): A41.9 - Sepsis, unspecified organism Neutropenia Qualifiers: Neutropenia type: unspecified Qualified Code(s): D70.9 - Neutropenia, unspecified The scribe's documentation has been prepared under my direction and personally reviewed by me in its entirety. I confirm that the note above accurately reflects all work, treatment, procedures, and medical decision making performed by me.
[2018-08-13] MEDS ORDERED: TRAMADOL HCL 50 MG TABLET PO PRN (22:03)
[2018-08-13] MEDS ORDERED: SODIUM CHLORIDE 0.9% 250 ML IV PRN (22:03)
[2018-08-13] MEDS ORDERED: ALPRAZolam 0.25 MG TABLET PO PRN (22:03)
[2018-08-13] MEDS ORDERED: VANCOMYCIN HCL 1,000 MG in SODIUM CHLORIDE 0.9% 250 ML IV SCH (23:15)
[2018-08-13] MEDS: ALBUMIN 25% 50 ML IV SCH (23:40)
[2018-08-13] MEDS: SUCRALFATE 1 GM/10 ML UDC PO SCH (23:48)
[2018-08-13] MEDS: HEPARIN SOD 5,000 UNIT/0.5 ML VIAL SQ SCH (23:49)
[2018-08-13] MEDS: BUDESONIDE/FORMOTEROL FUMARATE 160/4.5 60 PUFFS/INHALER INH SCH (23:51)
[2018-08-13] MEDS: ATORVASTATIN 20 MG TAB PO SCH (23:51)
[2018-08-14] MEDS: SUCRALFATE 1 GM/10 ML UDC PO SCH ×5 (00:06→21:01)
[2018-08-14] MEDS: BUDESONIDE/FORMOTEROL FUMARATE 160/4.5 60 PUFFS/INHALER INH SCH ×3 (00:06→21:03)
[2018-08-14] MEDS: ATORVASTATIN 20 MG TAB PO SCH ×2 (00:07→21:02)
[2018-08-14] MEDS: ALBUMIN 25% 50 ML IV SCH (00:51)
[2018-08-14] MEDS: POTASSIUM CHLORIDE 40 MEQ in SODIUM CHLORIDE 0.9% 1000ML 1,000 ML IV SCH ×2 (01:37→18:16)
[2018-08-14] MEDS: LEVALBUTEROL 1.25MG/0.5ML NEB NEB SCH ×5 (02:00→19:01)
[2018-08-14] MEDS ORDERED: FILGRASTIM 480 MCG/1.6 ML VIAL SC ONE (03:00)
[2018-08-14] MEDS: CEFEPIME 2,000 MG in SYRINGE 7.5 ML IV SCH ×2 (06:12→18:23)
[2018-08-14 07:14] LABS: Hematocrit (blood only) 20.3 % (37-47); Hemoglobin 7.2 g/dL (12.0-16.0); Mean Corpuscular Hgb Conc 35.5 g/dL (32-36); Mean Corpuscular Volume 94.9 fL (80-100); Mean Platelet Volume 9.4 fL (7.4-10.4); Platelet Count 95 K/uL (130-400); RDW Coefficient of Variation 16.1 % (11.5-14.5); RDW Standard Deviation 55.7 fL (36.4-46.3); Red Blood Count 2.14 M/uL (4.2-5.4); White Blood Count 1.46 K/uL (4.8-10.8)
[2018-08-14 07:39] LABS: Metamyelocytes # (manual) 0.06 K/uL (0-0); Monocytes # (manual) 0.58 K/uL (0.11-0.59)
[2018-08-14 07:50] LABS: BUN Creatinine Ratio 22.3 (10-20); Calcium 7.6 mg/dl (8.5-10.1); Creatinine Clr Calc Pharmacy 69.2 ml/min; Est GFR (African American) 99.6; Magnesium 1.4 mg/dl (1.8-2.4)
[2018-08-14] MEDS: ASPIRIN 81 MG ECTAB PO SCH (08:31)
[2018-08-14] MEDS: PARoxetine HCl 20 MG TAB PO SCH (08:31)
[2018-08-14] MEDS: MULTIVITAMIN TAB PO SCH (08:31)
[2018-08-14 08:32] LABS: Folate (Folic Acid) > 24.00 ng/ml (>5.38); Vitamin B12 > 2000 pg/ml (211-911)
[2018-08-14] MEDS: dilTIAZem ER 120 MG CAPCR PO SCH (08:35)
[2018-08-14] MEDS: LOSARTAN POTASSIUM 50 MG TAB PO SCH (08:35)
[2018-08-14] MEDS: PANTOprazole 40 MG TAB PO SCH (08:39)
[2018-08-14] MEDS: TRIAMCINOLONE ACET 0.1% ORABASE 5 GM TUBE MT SCH ×3 (08:53→17:19)
--- NOTE | 2018-08-14 09:11 | Pharmacy Report ---
Pharmacy Abx Initial Consult - Date of Service August 14, 2018 - Pharmacy Dosing Scope Date of Consult: 08/13/18 Consultation requested by: Dr. Hawkins Pharmacy is consulted to initiate Vancomycin IV dosing therapy, order appropriate labs and adjust drug dose/frequency. - Subjective The patient is a 73 year old F admitted on 08/13/18 20:45 with febrile neutropenia & LLE Cellulitis. - Objective Height: 5 ft 2 in Weight: 78 kg Vital Signs (Past 12hrs): Vital Signs Temp Pulse Pulse Resp BP BP BP 08/14/18 08:45 116 H 20 106/65 08/14/18 08:20 36.7 C 106 H 22 08/14/18 07:17 109 H 16 08/14/18 06:00 36.5 C 102 H 20 120/71 08/14/18 04:45 36.7 C 101 H 20 117/71 08/14/18 03:45 36.7 C 101 H 18 120/72 08/14/18 03:16 36.6 C 100 H 20 125/72 08/14/18 02:45 36.7 C 97 H 20 120/61 08/14/18 02:30 36.7 C 101 H 18 122/74 08/14/18 02:11 36.6 C 97 H 20 108/67 08/14/18 02:03 36.6 C 97 H 20 108/67 08/14/18 00:13 36.8 C 96 H 18 115/71 08/13/18 21:56 36.7 C 101 H 16 113/65 08/13/18 21:23 105 H 20 137/73 Pulse Ox 08/14/18 08:45 97 08/14/18 08:20 97 08/14/18 07:17 96 08/14/18 06:00 94 08/14/18 04:45 98 08/14/18 03:45 97 08/14/18 03:16 99 08/14/18 02:45 99 08/14/18 02:30 99 08/14/18 02:11 100 08/14/18 02:03 100 08/14/18 00:13 98 08/13/18 21:56 91 08/13/18 21:23 97 Lab Results (24hrs): Laboratory Tests (24 Hours) 08/14/18 08/14/18 08/13/18 06:50 06:50 17:25 WBC 1.46 L Creatinine 0.70 D Est Cr Clr Drug Dosing 69.2 Procalcitonin 1.04 H 08/13/18 08/13/18 17:25 17:25 WBC 1.54 L Creatinine 1.09 Est Cr Clr Drug Dosing 44.5 Procalcitonin Micro Results: 08/13/18 17:55 Blood Culture - Pending Blood 08/13/18 17:25 Blood Culture - Pending Blood - Risk Factors for Resistance s * Immunocompromised ( chemotherapy) - Assessment & Plan Assessment 73 year old F admitted with febrile neutropenia, anemia with a hemoglobin of 7.3. Rectal exam performed shows heme-negative stool. INR mildly elevated at 1.4. Renal panel testing shows a hyponatremia with a sodium of 124. No kidney failure. No hepatitis. No pancreatitis. Chest film shows some chronic change, no pneumonia. Lactic acid level was not elevated making severe sepsis less likely. Pro- calcitonin was elevated slightly consistent with a bacterial infection. Urinalysis does not show infection. Influenza testing was negative. Blood cultures are pending. On exam, the patient appeared to have a left lower leg cellulitis. PMH significant for lung cancer, chemotherapy. Plan IV Vancomycin for treatment of LLE Cellulitis & febrile neutropenia. Vancomycin IV * Estimated PK Parameters: Vd 0.7 L/kg, Emmanuel 0.04 hr-1, t1/2 17hr * Loading dose: 1500 mg (19 mg/kg) * Maintenance dose: 1000 mg IV (12.8 mg/kg) every 16 hours * Goal trough level for cellulitis & febrile neutropenia : 15 to 20 mcg/mL * Trough level ordered for 08/16/18 Patient also receiving IV Cefepime 2g IV Q12H Pharmacy will continue to follow and will adjust dose/frequency as necessary. Thank you.
[2018-08-14] MEDS: HEPARIN SOD 5,000 UNIT/0.5 ML VIAL SQ SCH ×2 (09:30→20:23)
[2018-08-14] MEDS ORDERED: VANCOMYCIN HCL 1,000 MG in SODIUM CHLORIDE 0.9% 250 ML IV SCH (10:00)
[2018-08-14] MEDS: POTASSIUM CHLORIDE 20 MEQ TABCR PO SCH ×2 (10:29→21:02)
[2018-08-14] MEDS: MAGNESIUM OXIDE 400 MG TAB PO SCH ×2 (10:30→21:03)
--- NOTE | 2018-08-14 19:16 | Hospitalist Progress Note ---
Date of Service August 14, 2018 Assessment & Plan (1) Neutropenic sepsis: Initially concern on leg cellulitis, but this appears to not be the case. More than likely related to pneumonia, especially given her newly developing lung findings and symptoms. Continue Vanco and cefepime (2) Sepsis: Present on admission, see above (3) Hyponatremia: Present on admission, likely related to illness and (4) Pneumonia: Clinical diagnosis. Could consider chest CT to evaluate further, but would not foreign exchange dealer. Continue current antibiotics (5) Metabolic encephalopathy: Seems to have possibly been present on admission, likely related all of above. Now seems to have improved (6) Pancytopenia: Chemotherapy-induced. Her anemia did require 1 unit transfusion, follow-up CBC tomorrow (7) COPD (chronic obstructive pulmonary disease): Surprisingly stable given the overall situation (8) Anxiety: Extensive discussions and reassurance (9) Hypertension: Follow (10) DVT prophylaxis: Heparin subcu Subjective Feeling lousy, new cough. No sputum. She does note with hindsight that she had a little bit of dyspnea yesterday. No current fevers chills or sweats. Her left leg erythema is about the same as it is been since Saturday when it came on fairly gradually but has not changed since. She has urine retention and constipation at this point in time. She is on the bedpan while we are talking, she needed straight caths last night. Otherwise she does feel vaguely better than before Review of Systems All systems reviewed & are unremarkable except as noted in HPI & below Physical Exam Vital Signs (Past 24 Hours): Last Vital Signs Temp 36.6 C 08/14/18 14:53 Pulse 112 H 08/14/18 19:03 Resp 18 08/14/18 19:03 BP 115/63 08/14/18 14:53 Pulse Ox 95 08/14/18 19:03 Physical Exam: In general she is awake alert oriented x3 fatigued and anxious appearing but otherwise in no distress. HEENT normocephalic atraumatic mucous membranes are moist. Developer Evangelist distant no rubs murmurs or gallops. Lungs show anterior squeak like wheezing, and on the right wheezing as well as on the left diffuse rhonchi. She has no accessory muscle use good effort. Abdomen soft nondistended nontender no masses or organomegaly. Skin shows no rashes no pallor icterus with the exception of a little bit of dull erythema that is nontender in her left lower extremity, extremities are as above, with about 1+ edema otherwise. Neuro shows cranial nerves II through XII grossly intact gross motor and sensory are intact. She does have a bit of a low amplitude tremor consistent with an intention tremor/familial tremor (1) Sepsis Sepsis type: sepsis due to unspecified organism Qualified Code(s): A41.9 - Sepsis, unspecified organism
[2018-08-14] MEDS: VANCOMYCIN HCL 1,000 MG in SODIUM CHLORIDE 0.9% 250 ML IV SCH (23:51)
[2018-08-15] MEDS: LEVALBUTEROL 1.25MG/0.5ML NEB NEB SCH ×2 (02:15→07:21)
[2018-08-15] MEDS: CEFEPIME 2,000 MG in SYRINGE 7.5 ML IV SCH ×2 (05:42→17:39)
[2018-08-15 06:17] LABS: Hematocrit (blood only) 20.1 % (37-47); Hemoglobin 7.2 g/dL (12.0-16.0); Mean Corpuscular Hgb Conc 35.8 g/dL (32-36); Mean Corpuscular Volume 94.8 fL (80-100); Mean Platelet Volume 9.5 fL (7.4-10.4); Nucleated RBC # (auto) 0.03 K/uL (0-0); Nucleated RBC % (auto) 0.5 %; Platelet Count 93 K/uL (130-400); RDW Coefficient of Variation 17.3 % (11.5-14.5); RDW Standard Deviation 60.1 fL (36.4-46.3); Red Blood Count 2.12 M/uL (4.2-5.4); White Blood Count 6.83 K/uL (4.8-10.8)
[2018-08-15 06:41] LABS: BUN Creatinine Ratio 15.4 (10-20); Calcium 7.8 mg/dl (8.5-10.1); Creatinine Clr Calc Pharmacy 74.5 ml/min; Est GFR (African American) 102.1; Est GFR (Non-African American) 88.1; Magnesium 1.4 mg/dl (1.8-2.4); Potassium 3.7 mmol/L (3.5-5.1)
[2018-08-15 06:44] LABS: ALC (manual) 0.36 K/uL (1.2-3.4); Dohle Bodies 3+; Giant Platelets 1+; Lymphocytes # (manual) 0.36 K/uL (1.2-3.4); Lymphocytes % (manual) 5.3 %; Metamyelocytes # (manual) 0.06 K/uL (0-0); Metamyelocytes % (manual) 0.9 %; Monocytes % (manual) 13.2 %; Myelocytes # (manual) 0.18 K/uL (0-0); Myelocytes % (manual) 2.6 %; Toxic Granulation 2+
[2018-08-15] MEDS: POTASSIUM CHLORIDE 20 MEQ TABCR PO SCH ×2 (09:10→20:52)
[2018-08-15] MEDS: BUDESONIDE/FORMOTEROL FUMARATE 160/4.5 60 PUFFS/INHALER INH SCH ×2 (09:10→20:52)
[2018-08-15] MEDS: SUCRALFATE 1 GM/10 ML UDC PO SCH ×4 (09:10→20:51)
[2018-08-15] MEDS: dilTIAZem ER 120 MG CAPCR PO SCH (09:11)
[2018-08-15] MEDS: MAGNESIUM OXIDE 400 MG TAB PO SCH ×2 (09:11→20:52)
[2018-08-15] MEDS: PARoxetine HCl 20 MG TAB PO SCH (09:11)
[2018-08-15] MEDS: ASPIRIN 81 MG ECTAB PO SCH (09:11)
[2018-08-15] MEDS: MULTIVITAMIN TAB PO SCH (09:11)
[2018-08-15] MEDS: PANTOprazole 40 MG TAB PO SCH (09:11)
[2018-08-15] MEDS: HEPARIN SOD 5,000 UNIT/0.5 ML VIAL SQ SCH ×2 (09:12→20:51)
[2018-08-15] MEDS: TRIAMCINOLONE ACET 0.1% ORABASE 5 GM TUBE MT SCH ×3 (09:12→17:41)
[2018-08-15] MEDS ORDERED: ALBUT/IPRATROP 3MG/0.5MG NEB 3 ML VIAL NEB STA (09:38)
[2018-08-15] MEDS ORDERED: methylPREDNISolone 125 MG/2 ML VIAL IV STA (09:40)
[2018-08-15] MEDS ORDERED: methylPREDNISolone 60 MG in SYRINGE 0 ML IV STA (09:56)
[2018-08-15] MEDS: ALBUT/IPRATROP 3MG/0.5MG NEB 3 ML VIAL NEB SCH ×4 (11:20→23:53)
--- NOTE | 2018-08-15 13:13 | Medical Student Progress Note ---
Date of Service August 15, 2018 Ms. Miramontes is a 73-year-old female w a h/o active lung cancer, COPD, HTN, HLD, anxiety, and depression who presents in hospital day 3 initially presenting with constitutional symptoms of weakness, fever and fatigue, mild shortness of breath and cough meeting criteria for neutropenic sepsis likely secondary to pneumonia and cellulitis of her left leg. She continues to be intermittently tachycardic, tachypneic but is now afebrile. Today she reports feeling extremely sweaty, but denies any fevers or chills. She also reports shortness of breath that she thinks has gotten worse. She was given a nebulizer treatment earlier in the morning which she said only mildy helped. Her daughter is in the room who is very concerned about her breathing saying that it is worse than when she first entered the hospital. She also has a dry cough when her cough is usually productive. Cellulitis in her left leg has improved and she no longer feels any pain. Addendum: Pt. was seen again a few hours later. Long conversation with the patient and her daughter that while she is feeling SOB and while she sounds bad, this is often the normal course of pneumonia where sometimes one feels worse before feeling better as body is actively trying to clear infection. Assessment & Plan (1) Neutropenic sepsis: Dyspnea/cough -Continue Vancomycin and Cefepime -Order placed for respiratory flutter device -Continue on 2L of O2 -Daughter asked about Roxanol but was advised against considered its ability to supress respiratory drive -Ordered chest CT with contrast to rule out any other possibilities of SOB including PEs -Consult to Pulmonology was placed as per daughter's request (2) Cellulitis of left lower extremity: Continue Vancomycin and Cefepime Present on Admission?: Yes (3) Hyponatremia: Present on admission, likely related to lung cancer (4) Dehydration: (5) Pedal edema: (6) Cancer of right lung: (7) Depression: (8) Anxiety: Much conversation was had that SOB can get worse as body is clearing pneumonia and her lab values, as well as lung findings are reassuring -can continue xanax as needed (9) Hyperlipidemia: (10) Hypertension: Follow (11) COPD (chronic obstructive pulmonary disease): (12) Anemia: -Although lab views are borderline, her SOB is likely due to pneumonia and and she is not not showing signs of acute distress so transfusion is not indicated at this time -Continue to follow CBCs Subjective Review of Systems All systems reviewed & are unremarkable except as noted in HPI & below Physical Exam Vital Signs (Past 24 Hours): Last Vital Signs Temp 36 C L 08/15/18 11:48 Pulse 111 H 08/15/18 11:48 Resp 20 08/15/18 11:48 BP 153/80 H 08/15/18 11:48 Pulse Ox 95 08/15/18 11:48 Constitutional: well developed, cooperative, + diaphoretic and + lethargic Respiratory: + cough Auscultation: + wheezes; no crackles, no rales and no rhonchi Diffuse wheezes bilaterally throughout Cardiovascular: RRR, no murmur, no edema Extremities: no edema Gastrointestinal (Abdomen): normal bowel sounds, soft, nontender, no hepatosplenomegaly Skin: Mild erythema on left lower hua Neurologic: Motor/Sensory: + tremor (in hands and legs ) Psychiatric: A+Ox3, euthymic affect
[2018-08-15] MEDS: VANCOMYCIN HCL 1,000 MG in SODIUM CHLORIDE 0.9% 250 ML IV SCH (13:25)
[2018-08-15] MEDS ORDERED: IOVERSOL 100ml IV PRN (16:58)
--- NOTE | 2018-08-15 17:14 | CT Scan Report ---
ADDENDUM Review the images shows no evidence for a major pulmonary embolus. The study was not specifically tar geted to pulmonary arterial vasculature but again a well-defined significant emboli process is not se en. Electronically signed by: Eugene Foreman M.D. 08/15/2018 6:[address] chest w con CT DOSE: 298.99 mGy.cm HISTORY: Dyspnea. Lung carcinoma. hypoxia, dyspnea, neutropenia,lung CA TECHNIQUE: Multiaxial CT images of the chest were performed following the intravenous administration of contrast. A dose lowering technique was utilized adhering to the principles of ALARA. COMPARISON: 07/23/2018 FINDINGS: Interval development of small bilateral pleural effusions. Parenchymal infiltrative process left lung base versus atelectasis. Interval development of a pleural-based mass anterior aspect righ t upper lobe measuring 3.8 x 4.4 cm. This should potential early invasive changes to the anterior abd ominal wall and lateral aspect superior mediastinum. There is also linear extension to the right ante rior hilar region. Slightly progressive mid mediastinal adenopathy. Soft tissue prominence] retrohilar position best see n transaxial image 28. This measures 1.5 x 1.3 cm maximum dimension and is associated with pleural th ickening extending along the right paravertebral line. There are several old right-sided rib fractures similar as compared to the prior study. IMPRESSION: 1. Interval development of a pleural-based mass anterior aspect right upper lung. 2. This measures 4.4 x 3.8 cm in maximum transaxial dimension, and shows a linear extension to the an terior chest wall of the right, right lateral superior/anterior mediastinum, and right retrohilar ple ural-based regions. 3. Progressive pleural thickening both lung bases combined with small bilateral pleural effusions. 4. Slightly progressive mid mediastinal adenopathy. 5. Moderate esophageal wall thickening considered similar as compared to the prior study. 6. This appearance is consistent with recurrent neoplastic change. The above report was generated using voice recognition software. It may contain grammatical, syntax or spelling errors. Electronically signed by: Eugene Foreman M.D. 08/15/2018 5:13 PM
--- NOTE | 2018-08-15 18:28 | Hospitalist Progress Note ---
Date of Service August 15, 2018 Assessment & Plan (1) Neutropenic sepsis: Initially concern on leg cellulitis, but this appears to not be the case. More than likely related to pneumonia, especially given her newly developing lung findings and symptoms. Continue Vanco and cefepime, neutropenia/sepsis parameters have improved -In regards to her pneumonia, she clinically overall appears to be improving, given that her neutropenia is improved she is no longer febrile, and her vitals are overall stable. However she feels much worse, in terms of her dyspnea. She does not have significantly worsening hypoxia, and actually her lung exam is improved through the day. At lunchtime she was even calmly eating an egg sandwich with no dyspnea whatsoever. It seems most likely that she is having worsening mucous plugging as the antibiotics and her immune system are starting to clear the infection. Nebulizers, pulmonary toilet, flutter valve. Due to high concern from the patient and her family, CT chest was checked, radiology's read is mostly in regards to the cancer, but it does appear that there is a small base infiltrate left, and no pulmonary emboli. Family requested pulmonary consult, and I discussed the case with pulmonary who will see her in consultation as well. (2) Cellulitis of left lower extremity: (3) Hyponatremia: Present on admission, likely related to acute illness and chronic lung pathology as well as poor oral intake, this has improved (4) Dehydration: As above, appears to have improved (5) Pedal edema: Likely predominantly venous stasis, improved (6) Cancer of right lung: (7) Depression: (8) Anxiety: Extensive discussions and reassurance (9) Hyperlipidemia: (10) Hypertension: ongoingFollow continue current care (11) COPD (chronic obstructive pulmonary disease): Somewhat wheezy, nebulizers and steroids were added, but she does seem to be moving air fairly well. PFTs from about 9 months ago was reviewed, and showed fairly severe airflow obstruction (12) Anemia: Now stable post transfusion of 1 unit. Continue to follow Subjective Visit approximately 4 times today. Shortness of breath worse, cough, not much sputum, ongoing chills and sweats. She is eating okay. First visit this morning she is fairly dyspneic getting nebulizer treatment, later at noon she is eating lunch and appearing much more calm and comfortable just very fatigued. Mid afternoon she is getting changed after having had a soaking sweat, and then later she is a little bit dyspneic and coughing but appears better than this morning. The daughter is extremely concerned, noting that she has never seen her mother this sick. Review of Systems All systems reviewed & are unremarkable except as noted in HPI & below Physical Exam Vital Signs (Past 24 Hours): Last Vital Signs Temp 36.7 C 08/15/18 15:30 Pulse 124 H 08/15/18 15:30 Resp 22 08/15/18 15:30 BP 159/81 H 08/15/18 15:30 Pulse Ox 94 08/15/18 15:30 Physical Exam: First a.m. she appears a bit dyspneic but is getting a nebulizer and appears fatigued, later in the day she is much more calm and comfortable appearing especially when her she is eating lunch, her last visit in the day she does appear a little bit restless and has a degree of chills, but is not showing significant respiratory distress outside of a cough. HEENT normal cephalic atraumatic mucous membranes are moist Cardio is regular somewhat tachycardic Lungs initially this morning showed left-sided rhonchi right-sided wheeze but better than last night, later in the day she only has faint wheezing Abdomen soft nondistended nontender Extremities show no cyanosis or clubbing less edema than before the left leg mild erythema is much improved Neuro shows no focal deficits
[2018-08-15] MEDS ORDERED: methylPREDNISolone 40 MG in SYRINGE 0 ML IV SCH (18:30)
--- NOTE | 2018-08-15 18:31 | Pulmonary Consultation ---
Date of Consultation August 15, 2018 Assessment & Plan (1) SOB (shortness of breath): The patient is very tachypneic. She is on 2 L of O2 via nasal cannula and oxygenating in the low 90s. We are going to do the ABG now. Also have noticed that her H&H was significantly low and she received 1 unit of packed red blood cells transfusion in the morning. I am also going to do a stat CBC now. We will also start the patient on BiPAP 10/5 and O2 to maintain the saturation about 94%. The patient is DNR at this stage and does not want intubation or CPR or shock. The patient is also at increased risk for pulmonary embolism , the CT of the chest with contrast I have reviewed it and that did not reveal any evidence of PE. I have also discussed with Dr. Joshi who is going to follow-up with a CT. (2) Pancytopenia: The patient has leg cellulitis and cultures were done which are pending. She is on broad-spectrum antibiotics which should cover her cellulitis as well as pulmonary infection if at all. (3) Pneumonia: Reviewed the CT scan of the chest and that did reveal left base pneumonia versus atelectasis.. Patient is already on broad-spectrum antibiotics which will be continued and we also going to continue with the inhalers as well as oxygen. (4) Neutropenic sepsis: Broad-spectrum antibiotics and we will follow it according to the cultures and adjust it accordingly. (5) Anemia: The patient was transfused with 1 unit of packed red blood cells this morning. She has received chemotherapy recently. I am going to request stat H&H and depending on the results we will transfuse. (6) Cancer of right lung: I have reviewed the recent CT scan of the chest which is different from the previous one in July. It is also consistent with right pleural base mass for centimeters by 4-1/2 cm. He also has pleural thickening and mediastinal adenopathy and also thickening of the esophageal wall. From the CT scan it looks like this is metastatic disease. The patient is also having difficulty in swallowing. Patient was previously bronched and biopsied by Dr. Esteban thoracic surgeon and we have requested him to evaluate and treat the patient. The family were notified about that. (7) Hyponatremia: Stable at this time. I have discussed with the family members as well as the referring physician and also the thoracic surgeon about the case. I have spent greater than 55 minutes of my clinical time. History of Present Illness Reason for Consultation: Worsening Dyspnea. Requesting Physician: Cricket Larson DO Attending Physician: Cricket Larson DO History of Present Illness Ms. Arellano is a 73-year-old, very pleasant female with a history of lung cancer, COPD, hypertension, hyperlipidemia, anxiety, depression who presents to the emergency department with a 2-day history of feeling weak, with a productive cough and shortness of breath. Ms. Arellano's lung cancer was diagnosed in 2012. She has received radiation for this. She started chemotherapy on May 13, 2018, and her last chemotherapy treatment was August 05. Her daughter states that she was quite weak after her last treatment, and Ms. Arellano notes that 2 days ago, she felt even weaker, and developed a productive cough. She states that she was short of breath even with minimal exertion. She does not wear oxygen at home. She denies fever, chills, chest pain, or any other URI symptoms. She does have a history of COPD, and has used her inhalers and nebulizers at home, however this has not helped her symptoms much. She states that she was having trouble with wheezing a couple of weeks ago, and was given a steroid burst to help with this. Her daughter states that she never seemed to fully recover, and is now wheezing again at home. Of note, she was recently seen in the emergency department for bilateral leg swelling. She was prescribed Lasix for this, however her daughter notes that her legs have looked more swollen, and that the left one has started to look more red, and that Ms. Arellano has been complaining of more pain over that area. She follows with Dr. Pulido for her lung cancer. Of note, she was a prior smoker. She quit 40 years ago, but did smoke a pack per day for 15 years. She denies use of alcohol or recreational drugs. She lives at home with her 91-year-old mother, who has dementia. She states that she has home health that comes in a couple of times a week to help her mother, but she states that she does not have help herself. Her daughter lives approximately 30 minutes away, and calls daily to make sure that she is okay. He also has a brother who checks in on her once in a while. The patient was lying in the bed and she is very dyspneic. Oxygenation is in low 90s on 2 L nasal cannula. She has been also coughing and not able to clear any secretions. Currently she is being treated for pneumonia with antibiotics as well as inhalers. The patient has history of non-small cell CA and currently she is getting chemotherapy she will be getting around to. She was finished with radiation therapy. Allergies Allergy/AdvReac Type Severity Reaction Status Date / Time hydrochlorothiazide AdvReac Intermediate DIZZY, Verified 08/13/18 17:38 "LOOPY" FEELING Home Medications Home Medications Medication Instructions Recorded Confirmed Type Symbicort 1 puff INHALATION BID 03/27/18 08/13/18 History albuterol sulfate [Proventil HFA] 2 puff INHALATION Q6H PRN 03/27/18 08/13/18 History alprazolam 0.25 mg PO BID PRN 03/27/18 08/13/18 History aspirin 81 mg PO QAM 03/27/18 08/13/18 History atorvastatin 20 mg PO QPM 03/27/18 08/13/18 History diltiazem HCl 120 mg PO QAM 03/27/18 08/13/18 History hydrocodone-homatropine [Hydromet] 5 ml PO Q4H PRN 03/27/18 08/13/18 History ipratropium-albuterol 3 ml INHALATION QID 03/27/18 08/13/18 History lansoprazole [Prevacid] 15 mg PO BID 03/27/18 08/13/18 History losartan 50 mg PO QAM 03/27/18 08/13/18 History multivitamin 1 tab PO QAM 03/27/18 08/13/18 History paroxetine HCl 20 mg PO QAM 03/27/18 08/13/18 History sucralfate 100 mg/mL oral 5 ml PO QID #420 ml 06/19/18 08/13/18 Rx suspension tramadol 50 mg tablet 50 mg PO Q8H PRN #30 tab 07/21/18 08/13/18 Rx furosemide [Lasix] 20 mg PO DAILY #3 tab 08/02/18 08/13/18 Rx Patient History Medical History Cancer of right lung (Acute) 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 Radiation completed June 25, 2018. She received 6000 cGy. Difficult intubation LEFT FOOT RECONSTRUCTION= 12/28/16= GLIDESCOPE# 3 ETT 7.0 AT [facility] Hypertension (Chronic) Asthma (Chronic) COPD (chronic obstructive pulmonary disease) (Chronic) Hyperlipidemia (Chronic) Anxiety (Chronic) Depression (Chronic) Anemia (Chronic) Anxiety (Chronic) Asthma (Chronic) COPD (chronic obstructive pulmonary disease) (Chronic) Depression (Chronic) Dysphagia (Chronic) Hyperlipidemia (Chronic) Hypertension (Chronic) Irritable bowel disease (Chronic) Mediastinal lymphadenopathy (Chronic) Obesity (Chronic) Lung nodules Surgical History S/P appendectomy (Chronic) S/P hysterectomy (Chronic) H/O: hysterectomy (Acute) History of appendectomy (Resolved) as teenager History of bronchoscopy (Resolved) Multiple History of cataract surgery (Resolved) 2011 - Bilat History of colonoscopy (Resolved) 2017 Hx of abdominal hysterectomy (Resolved) 1972 Hx of foot surgery (Resolved) 2014 & 2017 - LEFT X2 Hx of repair of rotator cuff (Resolved) 2009 - RIGHT Hx of total shoulder replacement (Resolved) 2015 - LEFT Family History Mother Dementia Father , Passed age 67 of Lung Cancer (Heavy Smoker) Lung cancer Brother , Passed in 68 of Liver Cancer Liver cancer Brother , Passed in 60's of [place] Heart attack Brother COPD (chronic obstructive pulmonary disease) Sister No problems noted. Son No problems noted. Son No problems noted. Son No problems noted. Son No problems noted. Daughter No problems noted. Social History Communication Ability: Effective Beliefs That Will Affect Care: None marital status: Current Living Situation: Family current occupational status: retired current occupation: Retired from [employer] Other Information That Helps Us Care for You: No Feels Safe at Home: Yes Safety Concerns: Feels Safe At This Time Smoking Status: Never smoker Hx Alcohol Use: No Hx Substance Use: No caffeine: Yes (1 pot of coffee/day ) Review of Systems The review of system is as mentioned above and patient's HPI. She denies having any headache dizziness or syncopal episode. She has been complaining of increasing shortness of breath with tightness in her chest and also wheezing. Denies having any hemoptysis. She has got cough but not able to clear any of secretions. She does not have any chest pain. Also denies having any abdominal pain nausea vomiting. She has good difficulty in swallowing. Denies any regurgitation of the foot. She has been choking at times. Denies having any blood in her stool or urine no painful micturition. Denies having any swollen extremities or swollen joints. She also denies having any fever rash or chills. Physical Exam Vital Signs (Past 24 Hours): Last Vital Signs Temp 36.7 C 08/15/18 15:30 Pulse 124 H 08/15/18 15:30 Resp 22 08/15/18 15:30 BP 159/81 H 08/15/18 15:30 Pulse Ox 94 08/15/18 15:30 Physical Exam: CONSTITUTIONAL: + ill appearing and + obese EYES: PERRL, conjunctivae normal, anicteric sclerae ENMT: external ear and nose normal, oropharynx normal mucous membranes dry RESPIRATORY: Bilateral air entry with decreased breath sounds also coarse breathing and some expiratory wheeze. Also some scattered rhonchi. No crackles heard. CARDIOVASCULAR: Rate/Rhythm: regular rhythm and + tachycardic Vessels: radial pulses present Extremities: + pedal edema (1+ edema bilaterally) GASTROINTESTINAL (Abdomen): Percussion/Palpation: abdomen soft; abdomen nontender, no guarding and abdomen not rigid SKIN: Left leg with erythema over anterior aspect of calf, also tender and warm to touch. PSYCHIATRIC: A+Ox3, euthymic affect NEUROLOGIC: The patient is alert awake and oriented x3. Nonfocal exam. She is moving all extremities. EXTREMITIES: Trace edema to lower extremities. Results & Data Laboratory Results Abnormal lab results 08/15/18 08/15/18 Range/Units 05:49 05:49 RBC 2.12 L (4.2-5.4) M/uL Hgb 7.2 L (12.0-16.0) g/dL Hct 20.1 L* (37-47) % RDW Std Deviation 60.1 H (36.4-46.3) fL RDW Coeff of Filemon 17.3 H (11.5-14.5) % Plt Count 93 L (130-400) K/uL Absolute Nucleated RBC 0.03 H (0-0) K/uL Lymphocytes # (Manual) 0.36 L (1.2-3.4) K/uL Total Abs Lymphocytes 0.36 L (1.2-3.4) K/uL Monocytes # (Manual) 0.90 H (0.11-0.59) K/uL Metamyelocytes # (Man) 0.06 H (0-0) K/uL Myelocytes # (Manual) 0.18 H (0-0) K/uL Sodium 135 L (136-145) mmol/L Glucose 108 H (70-99) mg/dl Calcium 7.8 L (8.5-10.1) mg/dl Magnesium 1.4 L (1.8-2.4) mg/dl Diagnostic Findings CT chest w con CT DOSE: 298.99 mGy.cm HISTORY: Dyspnea. Lung carcinoma. hypoxia, dyspnea, neutropenia,lung CA TECHNIQUE: Multiaxial CT images of the chest were performed following the intravenous administration of contrast. A dose lowering technique was utilized adhering to the principles of ALARA. COMPARISON: 07/23/2018 FINDINGS: Interval development of small bilateral pleural effusions. Parenchymal infiltrative process left lung base versus atelectasis. Interval development of a pleural-based mass anterior aspect right upper lobe measuring 3.8 x 4.4 cm. This should potential early invasive changes to the anterior abdominal wall and lateral aspect superior mediastinum. There is also linear extension to the right anterior hilar region. Slightly progressive mid mediastinal adenopathy. Soft tissue prominence] retrohilar position best seen transaxial image 28. This measures 1.5 x 1.3 cm maximum dimension and is associated with pleural thickening extending along the right paravertebral line. There are several old right-sided rib fractures similar as compared to the prior study. IMPRESSION: 1. Interval development of a pleural-based mass anterior aspect right upper lung. 2. This measures 4.4 x 3.8 cm in maximum transaxial dimension, and shows a linear extension to the anterior chest wall of the right, right lateral superior/anterior mediastinum, and right retrohilar pleural-based regions. 3. Progressive pleural thickening both lung bases combined with small bilateral pleural effusions. 4. Slightly progressive mid mediastinal adenopathy. 5. Moderate esophageal wall thickening considered similar as compared to the prior study. 6. This appearance is consistent with recurrent neoplastic change. Electronically signed by: Eugene Foremna M.D. 08/15/2018 5:13 PM Medications Administered Current Inpatient Medications Albuterol (Duoneb) 3 ml NEB Q4R ERICKA Stop: 09/14/18 11:59 Last Admin: 08/15/18 15:04 Dose: 3 ml Documented by: Alprazolam (Xanax) 0.25 mg PO BID PRN PRN Reason: Anxiety Stop: 09/12/18 22:02 Last Admin: 08/15/18 11:58 Dose: 0.25 mg Documented by: Aspirin (Ecotrin Ectab) 81 mg PO QAM ERICKA Stop: 09/13/18 08:59 Last Admin: 08/15/18 09:11 Dose: 81 mg Documented by: Atorvastatin Calcium (Lipitor) 20 mg PO QPM ERICKA Stop: 09/12/18 22:59 Last Admin: 08/14/18 21:02 Dose: 20 mg Documented by: Budesonide/Formoterol Fumarate (Symbicort 160mcg/4.5mcg) 1 puffs INH BID ERICKA Stop: 09/12/18 22:59 Last Admin: 08/15/18 09:10 Dose: 1 puffs Documented by: Diltiazem HCl (Tiazac) 120 mg PO QAM ERICKA Stop: 09/13/18 08:59 Last Admin: 08/15/18 09:11 Dose: 120 mg Documented by: Heparin Sodium (Porcine) (Heparin Sodium (Porcine)) 5,000 units SQ Q12 ERICKA Stop: 09/12/18 22:59 Last Admin: 08/15/18 09:12 Dose: 5,000 units Documented by: Cefepime HCl 2,000 mg/ Syringe 20 mls @ 5.5 mls/min IV Q12H ERICKA Stop: 08/24/18 05:59 Last Admin: 08/15/18 17:39 Dose: 5.5 mls/min Documented by: Sodium Chloride (Nss 250ml) 250 mls @ 15 mls/hr IV .[id number] PRN PRN Reason: For Transfusion Stop: 09/12/18 22:02 Vancomycin HCl 1,000 mg/ (Sodium Chloride) 270 mls @ 125 mls/hr IV Q14H [facility] Stop: 08/25/18 00:00 Last Infusion: 08/15/18 14:50 Dose: 0 mls/hr Documented by: Methylprednisolone 40 mg/ (Syringe) 0.64 mls @ 1.5 mls/min IV Q8H [facility] Stop: 09/14/18 18:29 Ioversol (Optiray 320 100ml) 94 ml IV ONCE PRN PRN Reason: Interaction Checking Stop: 08/19/18 16:57 Last Admin: 08/15/18 16:59 Dose: 94 ml Documented by: Losartan Potassium (Cozaar) 50 mg PO QAM [facility] Stop: 09/13/18 08:59 Last Admin: 08/14/18 08:35 Dose: 50 mg Documented by: Magnesium Oxide (Mag-Ox) 400 mg PO BID [facility] Stop: 09/13/18 09:14 Last Admin: 08/15/18 09:11 Dose: 400 mg Documented by: Miscellaneous Information (Consult) 1 ea N/A UD PRN PRN Reason: Consult Stop: 09/12/18 18:51 Multivitamins (Multivitamin Tab) 1 tab PO QAM [facility] Stop: 09/13/18 08:59 Last Admin: 08/15/18 09:11 Dose: 1 tab Documented by: Pantoprazole Sodium (Protonix) 40 mg PO QAM [facility] Stop: 09/13/18 08:59 Last Admin: 08/15/18 09:11 Dose: 40 mg Documented by: Paroxetine HCl (Paxil) 20 mg PO QAM [facility] Stop: 09/13/18 08:59 Last Admin: 08/15/18 09:11 Dose: 20 mg Documented by: Potassium Chloride (Klor-Con M20) 20 meq PO BID [facility] Stop: 09/13/18 09:14 Last Admin: 08/15/18 09:10 Dose: 20 meq Documented by: Sucralfate (Carafate) 0.5 gm PO QID [facility] Stop: 09/12/18 22:59 Last Admin: 08/15/18 17:40 Dose: 0.5 gm Documented by: Tramadol HCl (Ultram) 50 mg PO Q8H PRN PRN Reason: pain Stop: 09/12/18 22:02 Triamcinolone Acetonide (Kenalog Orabase) 1 appln SHEREEN AC ERICKA Stop: 09/13/18 07:29 Last Admin: 08/15/18 17:41 Dose: 1 appln Documented by:
[2018-08-15 18:43] LABS: Allen Test POS (Pos); HCO3 ABG 23 mmol/L (19-24); Oxygen Saturation ABG 99.1 % (90-95); PCO2 ABG 33 mmHg (35-46); PO2 ABG 146 mm/Hg (80-95); pH ABG 7.46 (7.35-7.45)
[2018-08-15 18:48] LABS: Mean Corpuscular Volume 95.7 fL (80-100); Mean Platelet Volume 9.8 fL (7.4-10.4); Nucleated RBC # (auto) 0.04 K/uL (0-0); Nucleated RBC % (auto) 0.5 %; Platelet Count 101 K/uL (130-400); RDW Coefficient of Variation 17.2 % (11.5-14.5); Red Blood Count 2.09 M/uL (4.2-5.4); White Blood Count 8.67 K/uL (4.8-10.8)
[2018-08-15 19:05] LABS: ALC (manual) 0.15 K/uL (1.2-3.4); Dohle Bodies 3+; Lymphocytes # (manual) 0.15 K/uL (1.2-3.4); Lymphocytes % (manual) 1.7 %; Metamyelocytes # (manual) 0.08 K/uL (0-0); Metamyelocytes % (manual) 0.9 %; Monocytes # (manual) 0.23 K/uL (0.11-0.59); Monocytes % (manual) 2.6 %; Neutrophils % (manual) 94.8 %; Toxic Granulation 2+
[2018-08-15] MEDS ORDERED: SODIUM CHLORIDE 0.9% 250 ML IV PRN ×3 (19:12→19:24)
[2018-08-15] MEDS: methylPREDNISolone 80 MG in SYRINGE 0 ML IV SCH (20:51)
[2018-08-15] MEDS: ATORVASTATIN 20 MG TAB PO SCH (20:52)
--- NOTE | 2018-08-16 00:44 | Consultation Report ---
DATE OF CONSULTATION: 08/15/2018 REASON FOR CONSULTATION: The patient is with known lung cancer who is now hypoxic. 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 She was treated down at [facility] with Dr. Storey, who was treating her with a cryoprobe. The patient was followed by Dr. Alessio Orellana and Delmer Seymour. She was a smoker in the past. She was sent to me last fall and she had some lymphadenopathy which was hypermetabolic. I performed an endobronchial ultrasound back on 04/01/2018, which showed the patient had at least IIIA squamous cell carcinoma of the level 4 and level 10 nodes on the right. The level 7 node was also involved. She was treated with chemotherapy and radiation. Radiation finished in June. She is currently receiving chemotherapy under the direction of Dr. John Pulido. The patient is quite short of breath. She was admitted 2 days ago and her shortness of breath has been worsening. I was asked to see her when a CT scan showed a new mass in the medial right upper lung. She also had some pleural thickening. PAST MEDICAL HISTORY: 1. Squamous cell carcinoma (stage IIIA at least). 2. Neutropenic sepsis due to her chemotherapy. 3. Hypernatremia. 4. Chronic obstructive pulmonary disease. 5. History of cigarette smoking. 6. Gastroesophageal reflux disease. 7. Hypertension. 8. Hyperlipidemia. PAST SURGICAL HISTORY: 1. Childbirth. 2. Hysterectomy. 3. Appendectomy. 4. Cataract extractions. 5. Repair of rotator cuff. 6. Endobronchial ultrasound. 7. Multiple bronchoscopies. 8. A left total shoulder arthroplasty. SOCIAL HISTORY: The patient has a very supportive family. She is . 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 She has not smoked in many years. FAMILY MEDICAL HISTORY: The patient's mother at 67 from lung cancer and brother from liver cancer. She had another who brother from myocardial infarction. Sister from chronic obstructive pulmonary disease. Her mother was quite elderly and was demented at the time of her . REVIEW OF SYSTEMS: The patient's respiratory effort has increased. She states that her breathing now with BiPAP is better than it was earlier today, but she and her family are quite concerned about her. She does complain of malaise with weakness, body aches. She has been anorexic and appears to be dry. She had had a cough with some sputum production and wheezing, but no hemoptysis. She denies nausea, vomiting or diarrhea. She has been making urine. She has had edema in her legs which is a bit worsened. She has had some mild erythema of left leg; however, she has no skin breakdown. Neurologically, she is intact, but very anxious. ASSESSMENT AND PLAN: I reviewed her CT scan. I wonder if this right medial upper lung process may be collapse of her right upper lobe as there appears to be airway compromise. She may also have radiation pneumonitis. She has been treated with radiation. We are going to give her steroids in the thought this may be radiation-induced pneumonitis. I really do not see evidence of that on the CT, however. She does not have a PE. It does not appear she has pneumonia. This just could be collapse of a portion of her right upper lobe with chronic underlying lung disease. We will keep a close eye on her this weekend. I will talk with the family.
[2018-08-16] MEDS: ALBUT/IPRATROP 3MG/0.5MG NEB 3 ML VIAL NEB SCH ×6 (03:23→23:05)
[2018-08-16] MEDS ORDERED: VANCOMYCIN TROUGH ONE ×2 (03:30→09:30)
[2018-08-16 04:07] LABS: Creatinine Clr Calc Pharmacy 74.5 ml/min; Est GFR (African American) 102.1; Est GFR (Non-African American) 88.1
[2018-08-16] MEDS: VANCOMYCIN HCL 1,000 MG in SODIUM CHLORIDE 0.9% 250 ML IV SCH ×2 (04:35→15:50)
[2018-08-16] MEDS: methylPREDNISolone 80 MG in SYRINGE 0 ML IV SCH ×3 (04:36→19:59)
[2018-08-16] MEDS: CEFEPIME 2,000 MG in SYRINGE 7.5 ML IV SCH ×2 (06:41→17:48)
[2018-08-16 08:23] LABS: Hematocrit (blood only) 28.8 % (37-47); Hemoglobin 10.2 g/dL (12.0-16.0); Mean Corpuscular Hgb Conc 35.4 g/dL (32-36); Mean Corpuscular Volume 91.7 fL (80-100); RDW Coefficient of Variation 17.4 % (11.5-14.5); RDW Standard Deviation 57.2 fL (36.4-46.3); Red Blood Count 3.14 M/uL (4.2-5.4); White Blood Count 8.45 K/uL (4.8-10.8)
[2018-08-16 08:24] LABS: Mean Platelet Volume 10.2 fL (7.4-10.4); Platelet Count 75 K/uL (130-400)
--- NOTE | 2018-08-16 08:33 | Pharmacy Report ---
Pharmacy Abx Dose Short Note - Date of Service August 16, 2018 - Assessment & Plan Assessment * 73 year old F receiving vancomycin and cefepime * Day #4 of antimicrobial therapy * Initial concern on leg cellulitis/febrile neutropenia, but now appears to be more related to pneumonia * Overall, pt appears to be improving clinically given that her neutropenia is improved and her vitals are stable Plan Vancomycin * Trough level of 13.1 mcg/mL is subtherapeutic * Change to 1000 mg IV every 12 hours * Goal trough level for PNA: 15 to 20 mcg/mL * Trough or random level ordered for 08/17 @1530 Pharmacy will continue to follow and will adjust dose/frequency as necessary. Thank you.
[2018-08-16 08:39] LABS: Basophils # (auto) 0.01 K/uL (0-0.2); Basophils % (auto) 0.1 %; Immature Granulocytes # (auto) 0.58 K/uL (0.00-0.02); Immature Granulocytes % (auto) 6.9 %; Lymphocytes # (auto) 0.35 K/uL (1.2-3.4); Lymphocytes % (auto) 4.1 %; Monocytes # (auto) 0.88 K/uL (0.11-0.59); Monocytes % (auto) 10.4 %; Neutrophils # (auto) 6.63 K/uL (1.4-6.5); Neutrophils % (auto) 78.5 %; Toxic Granulation 2+
[2018-08-16] MEDS: MULTIVITAMIN TAB PO SCH (08:51)
[2018-08-16] MEDS: PANTOprazole 40 MG TAB PO SCH (08:51)
[2018-08-16] MEDS: MAGNESIUM OXIDE 400 MG TAB PO SCH ×2 (08:52→20:00)
[2018-08-16] MEDS: POTASSIUM CHLORIDE 20 MEQ TABCR PO SCH ×2 (08:52→20:01)
[2018-08-16] MEDS: PARoxetine HCl 20 MG TAB PO SCH (08:52)
[2018-08-16] MEDS: dilTIAZem ER 120 MG CAPCR PO SCH (08:52)
[2018-08-16] MEDS: ASPIRIN 81 MG ECTAB PO SCH (08:52)
[2018-08-16] MEDS: BUDESONIDE/FORMOTEROL FUMARATE 160/4.5 60 PUFFS/INHALER INH SCH ×2 (08:53→20:01)
[2018-08-16] MEDS: SUCRALFATE 1 GM/10 ML UDC PO SCH ×4 (08:53→20:00)
[2018-08-16] MEDS: HEPARIN SOD 5,000 UNIT/0.5 ML VIAL SQ SCH ×2 (08:54→20:00)
[2018-08-16] MEDS: TRIAMCINOLONE ACET 0.1% ORABASE 5 GM TUBE MT SCH ×3 (08:59→15:52)
--- NOTE | 2018-08-16 09:59 | Medical Student Progress Note ---
Date of Service August 16, 2018 Ms. Linsey Miramontes is a 73-year-old female w a h/o active lung cancer, COPD, HTN, HLD, anxiety, and depression presenting in hospital day 3 for neutropenic sepsis that is now resolving. No acute events overnight. She feels that her breathing and cough have improved significantly since yesterday. She reports that she was using the BiPap on and off last night, taking it off at times becuase it was uncomfortable. but she feels that it helped decrease her shortness of breath. She has not used the flutter device. She also reports getting more sleep last night. She does not feel fevered but continues to sweat. Overall she feels better that thinks that she would be able to try walking with assistance today. She is much more talkative today. Addendum: BECKI was seen a few hours later. She was having some more SOB though still mild. She said it started with eating. Otherwise, she continues to feel better. Assessment & Plan (1) Neutropenic sepsis: Dyspnea/cough -Continue Vancomycin and Cefepime -Continue on 2L of O2 -Can discontinue BiPap given O2 sat is good, decreased SOB, she found it somewhat uncomfortable, and pH is now 7.46 -Can switch from NC to O2 mask if it provides more comfort -Continue methylprednisolone 80 mg IV, can consider decreasing dose tomorrow if she continues to show improvement -Conversation was had about how her lung cancer could be pushing against her esophagus and also that eating is exertional so can increase O2 demands somewhat leading to more SOB. Discussed that vitals are reassuring however and this is a nml response given her condition -Will discuss with Pulmonology regarding plans for how long she will be staying in hospital as she had mentioned they might want to do a bronchoscopy on her Saturday -Will call daughter to update her on plans for her mother (2) Cellulitis of left lower extremity: -Leg is showing significant improvement. Continue Vancomycin and Cefepime (3) Hyponatremia: Present on admission, likely related to lung cancer (4) Dehydration: (5) Pedal edema: (6) Cancer of right lung: (7) Depression: (8) Anxiety: Reassure that vital and sats are good even when she might feel short of breath (9) Hyperlipidemia: (10) Hypertension: Follow (11) COPD (chronic obstructive pulmonary disease): Surprisingly stable given the overall situation (12) Anemia: -Although lab views are borderline, her SOB is likely due to pneumonia and and she is not not showing signs of acute distress so transfusion is not indicated at this time -Continue to follow CBCs Subjective Review of Systems All systems reviewed & are unremarkable except as noted in HPI & below Physical Exam Vital Signs (Past 24 Hours): Last Vital Signs Temp 36.7 C 08/16/18 07:13 Pulse 99 H 08/16/18 07:13 Resp 20 08/16/18 07:13 BP 155/81 H 08/16/18 07:13 Pulse Ox 96 08/16/18 07:13 Constitutional: WD/WN, vitals as above Eyes: + anicteric sclerae Respiratory: normal respiratory effort and + cough; no retractions, does not use accessory muscles, not tachypneic, expiratory phase not prolonged and no stridor Auscultation: + wheezes Diffuse faint wheezes b/l. No rhonchi or rales noted. Cardiovascular: RRR, no murmur, no edema Faint Skin: Mild erythema on left lower hua. Mildly warm to touch. Psychiatric: A+Ox3, euthymic affect
--- NOTE | 2018-08-16 10:36 | Progress Note ---
DATE: 08/16/2018 Ms. Arellano was seen today. She is remarkably better after receiving steroids last night. She still has some mild wheezing. She is on nasal cannula now. She states that she is greatly improved. It appears that she may well have had radiation pneumonitis even though we did not see radiographic evidence. She had a fairly dramatic response to steroids. At any rate, we would continue these and she also feels better after receiving 2 units of blood.
--- NOTE | 2018-08-16 11:09 | Pulmonology Progress Note ---
Date of Service August 16, 2018 Assessment & Plan (1) SOB (shortness of breath): The patient has improved significantly after she was started on IV Solu- Medrol. 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 She was also anemic and we transfused her with 2 units of packed red blood cells and that has also made a difference. Her breathing and oxygenation has improved significantly she is comfortable and can now make her sentences without any difficulty. Her cough has also improved. We are going to continue with the current plan of care. Repeat H&H has significantly improved. We will also monitor her blood count. (2) Pancytopenia: The patient has leg cellulitis and cultures were done which are pending. She is on broad-spectrum antibiotics which should cover her cellulitis as well as pulmonary infection if at all. So far all the cultures are negative. Her white count is also coming up. She is still thrombocytopenic. (3) Pneumonia: Reviewed the CT scan of the chest and that did reveal left base pneumonia versus atelectasis.. Patient is already on broad-spectrum antibiotics which will be continued and we also going to continue with the inhalers as well as oxygen. Overall she seems to be doing better on current plan of care and we are going to continue with that. (4) Neutropenic sepsis: Broad-spectrum antibiotics and we will follow it according to the cultures and adjust it accordingly. (5) Anemia: The patient was given total of 3 units of packed red blood cells transfusion and H&H has come up to 10.2/28.8. She is also breathing comfortably. Will monitor that. (6) Cancer of right lung: I have reviewed the recent CT scan of the chest which is different from the previous one in July. It is also consistent with right pleural base mass for centimeters by 4-1/2 cm. He also has pleural thickening and medi astinal adenopathy and also thickening of the esophageal wall. From the CT scan it looks like this is metastatic disease. The patient is also having difficulty in swallowing. Patient was previously bronched and biopsied by Dr. Mccord thoracic surgeon and we have requested him to evaluate and treat the patient. The family were notified about that. The patient was evaluated by her and at this stage we will continue to monitor her very closely. Also there is possibility of right upper lobe a small segment collapse which could be related to the mass. We will also keep a close watch on it and she was also encouraged to do the incentive spirometry as much as possible. (7) Hyponatremia: Stable at this time. I have discussed with the family members as well as the referring physician and also the thoracic surgeon about the case. I have spent greater than 35 minutes of my clinical time. Subjective I have seen and examined the patient. The patient is resting comfortably today. Her breathing has improved significantly. The patient denies having any chest pain or shortness of breath or wheezing orthopnea or paroxysmal nocturnal dyspnea. She has minimal cough but no sputum no fever no chills no hemoptysis. Also denies having any abdominal pain, nausea or vomiting. Overall she seems to be doing better and hemodynamically she is stable. Physical Exam Vital Signs (Past 24 Hours): Last Vital Signs Temp 36.7 C 08/16/18 07:13 Pulse 99 H 08/16/18 07:13 Resp 20 08/16/18 07:13 BP 155/81 H 08/16/18 07:13 Pulse Ox 96 08/16/18 07:13 Physical Exam: CONSTITUTIONAL: + ill appearing and + obese EYES: PERRL, conjunctivae normal, anicteric sclerae ENMT: external ear and nose normal, oropharynx normal mucous membranes dry RESPIRATORY: Bilateral air entry with decreased breath sounds also coarse breathing and some expiratory wheeze. Also some scattered rhonchi. No crackles heard. Overall she has improved. CARDIOVASCULAR: Rate/Rhythm: regular rhythm and + tachycardic Vessels: radial pulses present Extremities: + pedal edema (1+ edema bilaterally) GASTROINTESTINAL (Abdomen): Percussion/Palpation: abdomen soft; abdomen nontender, no guarding and abdomen not rigid SKIN: Left leg with erythema over anterior aspect of calf, also tender and warm to touch. PSYCHIATRIC: A+Ox3, euthymic affect NEUROLOGIC: The patient is alert awake and oriented x3. Nonfocal exam. She is moving all extremities. EXTREMITIES: Trace edema to lower extremities. Results & Data Laboratory Results Abnormal lab results 08/13/18 08/15/18 08/15/18 Range/Units 22:20 18:24 18:24 RBC 2.09 L (4.2-5.4) M/uL Hgb 7.0 L (12.0-16.0) g/dL Hct 20.0 L* (37-47) % RDW Std Deviation 60.0 H (36.4-46.3) fL RDW Coeff of [place] 17.2 H (11.5-14.5) % Plt Count 101 L (130-400) K/uL Immature Gran # (Auto) (0.00-0.02) K/uL Neut # (Auto) (1.4-6.5) K/uL Lymph # (Auto) (1.2-3.4) K/uL [place] # (Auto) (0.11-0.59) K/uL Absolute Nucleated RBC 0.04 H (0-0) K/uL Neutrophils # (Manual) 8.22 H (1.4-6.5) K/uL Total Absolute Neuts 8.22 H (1.4-6.5) K/uL Lymphocytes # (Manual) 0.15 L (1.2-3.4) K/uL Total Abs Lymphocytes 0.15 L (1.2-3.4) K/uL Metamyelocytes # (Man) 0.08 H (0-0) K/uL ABG pH 7.46 H (7.35-7.45) ABG pCO2 33 L (35-46) mmHg ABG pO2 146 H (80-95) mm/Hg ABG O2 Saturation 99.1 H (90-95) % Crossmatch See Detail 08/16/18 Range/Units 07:51 RBC 3.14 L (4.2-5.4) M/uL Hgb 10.2 L D (12.0-16.0) g/dL Hct 28.8 L (37-47) % RDW Std Deviation 57.2 H (36.4-46.3) fL RDW Coeff of [place] 17.4 H (11.5-14.5) % Plt Count 75 L (130-400) K/uL Immature Gran # (Auto) 0.58 H (0.00-0.02) K/uL Neut # (Auto) 6.63 H (1.4-6.5) K/uL Lymph # (Auto) 0.35 L (1.2-3.4) K/uL [place] # (Auto) 0.88 H (0.11-0.59) K/uL Absolute Nucleated RBC (0-0) K/uL Neutrophils # (Manual) (1.4-6.5) K/uL Total Absolute Neuts (1.4-6.5) K/uL Lymphocytes # (Manual) (1.2-3.4) K/uL Total Abs Lymphocytes (1.2-3.4) K/uL Metamyelocytes # (Man) (0-0) K/uL ABG pH (7.35-7.45) ABG pCO2 (35-46) mmHg ABG pO2 (80-95) mm/Hg ABG O2 Saturation (90-95) % Crossmatch Diagnostic Findings CT chest w con CT DOSE: 298.99 mGy.cm HISTORY: Dyspnea. Lung carcinoma. hypoxia, dyspnea, neutropenia,lung CA TECHNIQUE: Multiaxial CT images of the chest were performed following the intravenous administration of contrast. A dose lowering technique was utilized adhering to the principles of ALARA. COMPARISON: 07/23/2018 FINDINGS: Interval development of small bilateral pleural effusions. Parenchymal infiltrative process left lung base versus atelectasis. Interval development of a pleural-based mass anterior aspect right upper lobe measuring 3.8 x 4.4 cm. This should potential early invasive changes to the anterior abdominal wall and lateral aspect superior mediastinum. There is also linear extension to the right anterior hilar region. Slightly progressive mid mediastinal adenopathy. Soft tissue prominence] retrohilar position best seen transaxial image 28. This measures 1.5 x 1.3 cm maximum dimension and is associated with pleural thickening extending along the right paravertebral line. There are several old right-sided rib fractures similar as compared to the prior study. IMPRESSION: 1. Interval development of a pleural-based mass anterior aspect right upper lung. 2. This measures 4.4 x 3.8 cm in maximum transaxial dimension, and shows a linear extension to the anterior chest wall of the right, right lateral superior/anterior mediastinum, and right retrohilar pleural-based regions. 3. Progressive pleural thickening both lung bases combined with small bilateral pleural effusions. 4. Slightly progressive mid mediastinal adenopathy. 5. Moderate esophageal wall thickening considered similar as compared to the prior study. 6. This appearance is consistent with recurrent neoplastic change. Electronically signed by: Eugene Foreman M.D. 08/15/2018 5:13 PM Medications Administered Current Inpatient Medications Albuterol (Duoneb) 3 ml NEB Q4R [facility] Stop: 09/14/18 11:59 Last Admin: 08/16/18 07:01 Dose: 3 ml Documented by: Alprazolam (Xanax) 0.25 mg PO BID PRN PRN Reason: Anxiety Stop: 09/12/18 22:02 Last Admin: 08/15/18 11:58 Dose: 0.25 mg Documented by: Aspirin (Ecotrin Ectab) 81 mg PO QAM [facility] Stop: 09/13/18 08:59 Last Admin: 08/16/18 08:52 Dose: 81 mg Documented by: Atorvastatin Calcium (Lipitor) 20 mg PO QPM [facility] Stop: 09/12/18 22:59 Last Admin: 08/15/18 20:52 Dose: 20 mg Documented by: Budesonide/Formoterol Fumarate (Symbicort 160mcg/4.5mcg) 1 puffs INH BID [facility] Stop: 09/12/18 22:59 Last Admin: 08/16/18 08:53 Dose: 1 puffs Documented by: Diltiazem HCl (Tiazac) 120 mg PO QAM [facility] Stop: 09/13/18 08:59 Last Admin: 08/16/18 08:52 Dose: 120 mg Documented by: Heparin Sodium (Porcine) (Heparin Sodium (Porcine)) 5,000 units SQ Q12 [facility] Stop: 09/12/18 22:59 Last Admin: 08/16/18 08:54 Dose: 5,000 units Documented by: Cefepime HCl 2,000 mg/ Syringe 20 mls @ 5.5 mls/min IV Q12H [facility] Stop: 08/24/18 05:59 Last Admin: 08/16/18 06:41 Dose: 5.5 mls/min Documented by: Sodium Chloride (Nss 250ml) 250 mls @ 15 mls/hr IV .[id number] PRN PRN Reason: For Transfusion Stop: 09/12/18 22:02 Sodium Chloride (Nss 250ml) 250 mls @ 15 mls/hr IV .[id number] PRN PRN Reason: For Transfusion Stop: 09/14/18 19:11 Sodium Chloride (Nss 250ml) 250 mls @ 15 mls/hr IV .[id number] PRN PRN Reason: For Transfusion Stop: 09/14/18 19:19 Methylprednisolone 80 mg/ (Syringe) 1.28 mls @ 1.5 mls/min IV Q8H [facility] Stop: 09/14/18 19:59 Last Admin: 08/16/18 04:36 Dose: 1.5 mls/min Documented by: Sodium Chloride (Nss 250ml) 250 mls @ 15 mls/hr IV .[id number] PRN PRN Reason: For Transfusion Stop: 09/14/18 19:23 Vancomycin HCl 1,000 mg/ (Sodium Chloride) 270 mls @ 125 mls/hr IV Q12H [facility]; Protocol Stop: 08/23/18 15:59 Ioversol (Optiray 320 100ml) 94 ml IV ONCE PRN PRN Reason: Interaction Checking Stop: 08/19/18 16:57 Last Admin: 08/15/18 16:59 Dose: 94 ml Documented by: Losartan Potassium (Cozaar) 50 mg PO QAM [facility] Stop: 09/13/18 08:59 Last Admin: 08/14/18 08:35 Dose: 50 mg Documented by: Magnesium Oxide (Mag-Ox) 400 mg PO BID [facility] Stop: 09/13/18 09:14 Last Admin: 08/16/18 08:52 Dose: 400 mg Documented by: Miscellaneous Information (Consult) 1 ea N/A UD PRN PRN Reason: Consult Stop: 09/12/18 18:51 Multivitamins ([facility]ivitamin Tab) [facility] Stop: 09/13/18 08:59 Last Admin: 08/16/18 08:51 Dose: 1 tab Documented by: Pantoprazole Sodium (Protonix) 40 mg PO QAM [facility] Stop: 09/15/18 08:59 Last Admin: 08/16/18 08:51 Dose: 40 mg Documented by: Paroxetine HCl (Paxil) 20 mg PO QAM [facility] Stop: 09/13/18 08:59 Last Admin: 08/16/18 08:52 Dose: 20 mg Documented by: Potassium Chloride (Klor-Con M20) 20 meq PO BID [facility] Stop: 09/13/18 09:14 Last Admin: 08/16/18 08:52 Dose: 20 meq Documented by: Sucralfate (Carafate) 0.5 gm PO QID [facility] Stop: 09/12/18 22:59 Last Admin: 08/16/18 08:53 Dose: 0.5 gm Documented by: Tramadol HCl (Ultram) 50 mg PO Q8H PRN PRN Reason: pain Stop: 09/12/18 22:02 Triamcinolone Acetonide (Kenalog Orabase) 1 appln [facility] Stop: 09/13/18 07:29 Last Admin: 08/16/18 08:59 Dose: Not Given Documented by:
--- NOTE | 2018-08-16 18:27 | Hospitalist Progress Note ---
Date of Service August 16, 2018 Assessment & Plan (1) Neutropenic sepsis: Initially concern on leg cellulitis, but this appears to not be the case. More than likely related to pneumonia, along probably with some radiation pneumonitis, but overall the evolution of her symptoms fit quite well with that of a pneumonia that developed and is now resolving.. Continue Vanco and cefepime, neutropenia/sepsis parameters have improved -In regards to her pneumonia, she clinically overall appears to be improving, given that her neutropenia is improved she is no longer febrile, and her vitals are overall stable. She seems to be improving nicely. Steroids for the radiation pneumonitis (2) Cellulitis of left lower extremity: Seem to be mild at worst, may have been even just venous stasis changes, either way the antibiotics for the pneumonia would be covering any leg pathogens (3) Hyponatremia: Present on admission, likely related to acute illness and chronic lung pathology as well as poor oral intake, this has improved (4) Dehydration: As above, appears to have improved (5) Pedal edema: Likely predominantly venous stasis, improved (6) Cancer of right lung: (7) Depression: (8) Anxiety: Extensive discussions and reassurance throughout her stay, but now that she is feeling better it is getting easier to manage. (9) Hyperlipidemia: (10) Hypertension: ongoing management, follow continue current care (11) COPD (chronic obstructive pulmonary disease): Wheezing improving, continue steroids and nebs PFTs from about 9 months ago was reviewed, and showed fairly severe airflow obstruction (12) Anemia: Now stable post transfusion of 3 units total, given pulmonary thought that some of her dyspnea may have been anemia related. Continue to follow (13) Discharge planning issues: Anticipate a rehab style stay at [facility] once she is doing better Subjective Feeling better, breathing better, still a bit short of breath and shaky still having a cough, but definitely better than before. She is pleased with her progress, family pleased with her progress as well. Review of Systems All systems reviewed & are unremarkable except as noted in HPI & below Physical Exam Vital Signs (Past 24 Hours): Last Vital Signs Temp 36.7 C 08/16/18 15:31 Pulse 100 H 08/16/18 15:41 Resp 20 08/16/18 15:41 BP 156/84 H 08/16/18 15:31 Pulse Ox 92 08/16/18 15:41 Physical Exam: General she is awake alert oriented x3 fatigue no distress. HEENT normocephalic atraumatic mucous membranes moist. Breathing is unlabored somewhat quiet, but rarely any wheezing, no rales no rhonchi and no accessory muscle use. Extremities show no cyanosis or clubbing
[2018-08-16] MEDS: ATORVASTATIN 20 MG TAB PO SCH (20:01)
[2018-08-17] MEDS: ALBUT/IPRATROP 3MG/0.5MG NEB 3 ML VIAL NEB SCH ×6 (03:49→23:20)
[2018-08-17] MEDS: methylPREDNISolone 80 MG in SYRINGE 0 ML IV SCH ×2 (04:04→12:47)
[2018-08-17] MEDS: VANCOMYCIN HCL 1,000 MG in SODIUM CHLORIDE 0.9% 250 ML IV SCH ×4 (04:06→18:03)
[2018-08-17] MEDS: CEFEPIME 2,000 MG in SYRINGE 7.5 ML IV SCH ×2 (06:23→18:02)
[2018-08-17] MEDS: PANTOprazole 40 MG TAB PO SCH (08:18)
[2018-08-17] MEDS: SUCRALFATE 1 GM/10 ML UDC PO SCH ×4 (08:18→20:14)
[2018-08-17] MEDS: POTASSIUM CHLORIDE 20 MEQ TABCR PO SCH ×2 (08:18→20:15)
[2018-08-17] MEDS: dilTIAZem ER 120 MG CAPCR PO SCH (08:18)
[2018-08-17] MEDS: MULTIVITAMIN TAB PO SCH (08:18)
[2018-08-17] MEDS: MAGNESIUM OXIDE 400 MG TAB PO SCH ×2 (08:18→20:16)
[2018-08-17] MEDS: PARoxetine HCl 20 MG TAB PO SCH (08:19)
[2018-08-17] MEDS: ASPIRIN 81 MG ECTAB PO SCH (08:19)
[2018-08-17] MEDS: TRIAMCINOLONE ACET 0.1% ORABASE 5 GM TUBE MT SCH ×3 (08:19→16:13)
[2018-08-17] MEDS: BUDESONIDE/FORMOTEROL FUMARATE 160/4.5 60 PUFFS/INHALER INH SCH ×2 (08:19→20:15)
[2018-08-17] MEDS: HEPARIN SOD 5,000 UNIT/0.5 ML VIAL SQ SCH ×2 (08:20→20:16)
--- NOTE | 2018-08-17 12:12 | Progress Note ---
DATE: 08/17/2018 The patient was seen today on 08/17/2018. She continues to improve. She is up in a chair. I had tentatively planned to do a bronchoscopy tomorrow, but at this point she is improved so much on steroids, I think I would hold off. I would like her to continue with her antibiotics and steroids. We will discuss her in detail with her oncologist and I would like to hold off on offering her a bronchoscopy right now as she has continued to improve. [email or web address]
[2018-08-17] MEDS ORDERED: VANCOMYCIN TROUGH ONE (15:30)
--- NOTE | 2018-08-17 16:41 | Pharmacy Report ---
Pharmacy Abx Dose Short Note - Date of Service August 17, 2018 - Assessment & Plan Assessment 73 year old F receiving vancomycin and cefepime for treatment of LLE cellulitis vs. neutropenic fever vs. pneumonia Day # 4 of antimicrobial therapy. Plan Vancomycin * Trough level of 21.8 mcg/mL is slightly supratherapeutic * Will slightly change the dosing frequency to q14h at the same dose of 1000 mg IV (possible accumulation of drug) * Goal trough level for 15 to 20 mcg/mL * Trough level ordered for 08/19 at 1130 prior to 4th dose at new regimen * BMP/CBC ordered for tomorrow morning to reassess renal function Cefepime * Continue 2 g IV q12h * BMP tomorrow morning to reassess renal function Pharmacy will continue to follow and will adjust dose/frequency as necessary. Thank you.
--- NOTE | 2018-08-17 17:08 | Pulmonology Progress Note ---
Date of Service August 17, 2018 Assessment & Plan (1) SOB (shortness of breath): The patient has improved significantly after she was started on IV Solu- Medrol. I believe she has developed some injury, radiation related pneumonitis. She was also anemic and we transfused her with 2 units of packed red blood cells and that has also made a difference. Her breathing and oxygenation has improved significantly she is comfortable and can now make her sentences without any difficulty. Her cough has also improved. We are going to continue with the current plan of care. Repeat H&H has significantly improved. We will also monitor her blood count. Breathing is also improved significantly. We will continue with the steroids and slowly start tapering it. The patient will also follow with thoracic surgery and Dr. Mccord will do a bronchoscopy at some times and if indicated will obtain a biopsy from right upper lobe mass. (2) Pancytopenia: The patient has leg cellulitis and cultures were done which are pending. She is on broad-spectrum antibiotics which should cover her cellulitis as well as pulmonary infection if at all. So far all the cultures are negative. Her white count is also coming up. She is still thrombocytopenic. (3) Pneumonia: Reviewed the CT scan of the chest and that did reveal left base pneumonia versus atelectasis.. Patient is already on broad-spectrum antibiotics which will be continued and we also going to continue with the inhalers as well as oxygen. Overall she seems to be doing better on current plan of care and we are going to continue with that. Currently she is on cefepime that will be continued. (4) Neutropenic sepsis: Broad-spectrum antibiotics and we will follow it according to the cultures and adjust it accordingly. (5) Anemia: The patient was given total of 3 units of packed red blood cells transfusion and H&H has come up to 10.2/28.8. She is also breathing comfortably. Will monitor that. (6) Cancer of right lung: I have reviewed the recent CT scan of the chest which is different from the previous one in July. It is also consistent with right pleural base mass for centimeters by 4-1/2 cm. He also has pleural thickening and mediastinal adenopathy and also thickening of the esophageal wall. From the CT scan it looks like this is metastatic disease. The patient is also having difficulty in swallowing. Patient was previously bronched and biopsied by Dr. Mccord thoracic surgeon and we have requested him to evaluate and treat the patient. The family were notified about that. The patient was evaluated by her and at this stage we will continue to monitor her very closely. Also there is possibility of right upper lobe a small segment collapse which could be related to the mass. We will also keep a close watch on it and she was also encouraged to do the incentive spirometry as much as possible. (7) Hyponatremia: Stable at this time. I have discussed with the family members as well as the referring physician and also the thoracic surgeon about the case. I have spent greater than 35 minutes of my clinical time. Subjective I have seen and examined the patient. The patient is resting comfortably today. She is sitting in the chair and currently she is on 2 L nasal cannula and oxygenating 95%. Her breathing has improved significantly. The patient denies having any chest pain or shortness of breath or wheezing orthopnea or paroxysmal nocturnal dyspnea. She has minimal cough but no sputum no fever no chills no hemoptysis. Also denies having any abdominal pain, nausea or vomiting. Overall she seems to be doing better while on steroids. And hemodynamically she is stable. Physical Exam Vital Signs (Past 24 Hours): Last Vital Signs Temp 36.6 C 08/17/18 15:58 Pulse 115 H 08/17/18 15:58 Resp 18 08/17/18 15:58 BP 153/85 H 08/17/18 15:58 Pulse Ox 93 08/17/18 15:58 Physical Exam: CONSTITUTIONAL: Sitting in the chair and resting comfortably and not any acute distress. She is also oxygenating around 95% on 2 L. EYES: PERRL, conjunctivae normal, anicteric sclerae ENMT: external ear and nose normal, oropharynx normal mucous membranes dry RESPIRATORY: Bilateral air entry with decreased breath sounds also coarse breathing.. Also some scattered rhonchi. No crackles heard. Wheezing has improved. Overall she has improved. CARDIOVASCULAR: Rate/Rhythm: regular rhythm and + tachycardic Vessels: radial pulses present Extremities: + pedal edema (1+ edema bilaterally) GASTROINTESTINAL (Abdomen): Palpation: abdomen soft; abdomen nontender, no guarding and abdomen not rigid SKIN: No rash no lesion. Her cellulitis has also improved. PSYCHIATRIC: A+Ox3, euthymic affect NEUROLOGIC: The patient is alert awake and oriented x3. Nonfocal exam. She is moving all extremities. EXTREMITIES: Trace edema to lower extremities. Results & Data Medications Administered Current Inpatient Medications Albuterol (Duoneb) 3 ml NEB Q4R [facility] Stop: 09/14/18 11:59 Last Admin: 08/17/18 15:49 Dose: 3 ml Documented by: Alprazolam (Xanax) 0.25 mg PO BID PRN PRN Reason: Anxiety Stop: 09/12/18 22:02 Last Admin: 08/15/18 11:58 Dose: 0.25 mg Documented by: Aspirin (Ecotrin Ectab) 81 mg PO QAM [facility] Stop: 09/13/18 08:59 Last Admin: 08/17/18 08:19 Dose: 81 mg Documented by: Atorvastatin Calcium (Lipitor) 20 mg PO QPM [facility] Stop: 09/12/18 22:59 Last Admin: 08/16/18 20:01 Dose: 20 mg Documented by: Budesonide/Formoterol Fumarate (Symbicort 160mcg/4.5mcg) 1 puffs INH BID [facility] Stop: 09/12/18 22:59 Last Admin: 08/17/18 08:19 Dose: 1 puffs Documented by: Diltiazem HCl (Tiazac) 120 mg PO QAM [facility] Stop: 09/13/18 08:59 Last Admin: 08/17/18 08:18 Dose: 120 mg Documented by: Heparin Sodium (Porcine) (Heparin Sodium (Porcine)) 5,000 units SQ Q12 [facility] Stop: 09/12/18 22:59 Last Admin: 08/17/18 08:20 Dose: 5,000 units Documented by: Cefepime HCl 2,000 mg/ Syringe 20 mls @ 5.5 mls/min IV Q12H [facility] Stop: 08/24/18 05:59 Last Admin: 08/17/18 06:23 Dose: 5.5 mls/min Documented by: Sodium Chloride (Nss 250ml) 250 mls @ 15 mls/hr IV .[id number] PRN PRN Reason: For Transfusion Stop: 09/12/18 22:02 Sodium Chloride (Nss 250ml) 250 mls @ 15 mls/hr IV .[id number] PRN PRN Reason: For Transfusion Stop: 09/14/18 19:11 Sodium Chloride (Nss 250ml) 250 mls @ 15 mls/hr IV .[id number] PRN PRN Reason: For Transfusion Stop: 09/14/18 19:19 Methylprednisolone 80 mg/ (Syringe) 1.28 mls @ 1.5 mls/min IV Q8H [facility] Stop: 09/14/18 19:59 Last Admin: 08/17/18 12:47 Dose: 1.5 mls/min Documented by: Sodium Chloride (Nss 250ml) 250 mls @ 15 mls/hr IV .[id number] PRN PRN Reason: For Transfusion Stop: 09/14/18 19:23 Vancomycin HCl 1,000 mg/ (Sodium Chloride) 270 mls @ 125 mls/hr IV Q14H [facility]; Protocol Stop: 08/23/18 15:59 Ioversol (Optiray 320 100ml) 94 ml IV ONCE PRN PRN Reason: Interaction Checking Stop: 08/19/18 16:57 Last Admin: 08/15/18 16:59 Dose: 94 ml Documented by: Losartan Potassium (Cozaar) 50 mg PO QAM [facility] Stop: 09/13/18 08:59 Last Admin: 08/14/18 08:35 Dose: 50 mg Documented by: Magnesium Oxide (Mag-Ox) 400 mg PO BID [facility] Stop: 09/13/18 09:14 Last Admin: 08/17/18 08:18 Dose: 400 mg Documented by: Miscellaneous Information (Consult) 1 ea N/A UD PRN PRN Reason: Consult Stop: 09/12/18 18:51 Multivitamins (Multivitamin Tab) 1 tab PO QAM [facility] Stop: 09/13/18 08:59 Last Admin: 08/17/18 08:18 Dose: 1 tab Documented by: Pantoprazole Sodium (Protonix) 40 mg PO QAM [facility] Stop: 09/15/18 08:59 Last Admin: 08/17/18 08:18 Dose: 40 mg Documented by: Paroxetine HCl (Paxil) 20 mg PO QAM [facility] Stop: 09/13/18 08:59 Last Admin: 08/17/18 08:19 Dose: 20 mg Documented by: Potassium Chloride (Klor-Con M20) 20 meq PO BID [facility] Stop: 09/13/18 09:14 Last Admin: 08/17/18 08:18 Dose: 20 meq Documented by: Sucralfate (Carafate) 0.5 gm PO QID [facility] Stop: 09/12/18 22:59 Last Admin: 08/17/18 16:13 Dose: 0.5 gm Documented by: Tramadol HCl (Ultram) 50 mg PO Q8H PRN PRN Reason: pain Stop: 09/12/18 22:02 Triamcinolone Acetonide (Kenalog Orabase) 1 appln [facility] Stop: 09/13/18 07:29 Last Admin: 08/17/18 16:13 Dose: Not Given Documented by:
--- NOTE | 2018-08-17 18:21 | Hospitalist Progress Note ---
Date of Service August 17, 2018 Assessment & Plan (1) Neutropenic sepsis: Initially concern on leg cellulitis, but this appears to not be the case. More than likely related to pneumonia, along probably with some radiation pneumonitis, but overall the evolution of her symptoms fit quite well with that of a pneumonia that developed and is now resolving.. Continue Vanco and cefepime while inpatient, then transition to oral antibiotics to complete 14 total days of coverage. Neutropenia/sepsis parameters have improved Steroids for the radiation pneumonitis (2) Cellulitis of left lower extremity: Seem to be mild at worst, may have been even just venous stasis changes, either way the antibiotics for the pneumonia would be covering any leg pathogens (3) Hyponatremia: Present on admission, likely related to acute illness and chronic lung pathology as well as poor oral intake, this has improved (4) Dehydration: As above, appears to have improved (5) Pedal edema: Likely predominantly venous stasis, improved (6) Cancer of right lung: (7) Depression: (8) Anxiety: Extensive discussions and reassurance throughout her stay, improving, easier to reassure her know that she is breathing better. (9) Hyperlipidemia: (10) Hypertension: ongoing management, follow continue current care (11) COPD (chronic obstructive pulmonary disease): Wheezing improving, continue steroids (reduced) and nebs PFTs from about 9 months ago was reviewed, and showed fairly severe airflow obstruction (12) Anemia: Now stable post transfusion of 3 units total, given pulmonary thought that some of her dyspnea may have been anemia related. Continue to follow periodically (13) Discharge planning issues: Anticipate a rehab style stay at [facility] once she is doing better, hopefully tomorrow Subjective Feeling better breathing better Still a few chills but less but no fevers Cough improving Breathing improving Review of Systems All systems reviewed & are unremarkable except as noted in HPI & below Physical Exam Vital Signs (Past 24 Hours): Last Vital Signs Temp 36.6 C 08/17/18 15:58 Pulse 115 H 08/17/18 15:58 Resp 18 08/17/18 15:58 BP 153/85 H 08/17/18 15:58 Pulse Ox 93 08/17/18 15:58 Physical Exam: In general she is awake alert and oriented x3 fatigued appearing but no distress. HEENT normal cephalic atraumatic mucous members are moist. Lungs faint wheeze on the right, very very faint rhonchi on the left but overall much more clear. Skin shows no rashes no pallor or icterus
[2018-08-17] MEDS: ATORVASTATIN 20 MG TAB PO SCH (20:15)
[2018-08-17] MEDS: methylPREDNISolone 60 MG in SYRINGE 0 ML IV SCH (20:17)
[2018-08-18] MEDS: ALBUT/IPRATROP 3MG/0.5MG NEB 3 ML VIAL NEB SCH ×6 (03:01→23:09)
[2018-08-18] MEDS: methylPREDNISolone 60 MG in SYRINGE 0 ML IV SCH ×3 (03:28→19:23)
[2018-08-18] MEDS: CEFEPIME 2,000 MG in SYRINGE 7.5 ML IV SCH ×2 (06:31→17:56)
[2018-08-18 06:52] LABS: Hematocrit (blood only) 31.6 % (37-47); Mean Corpuscular Hgb Conc 34.8 g/dL (32-36); Mean Corpuscular Volume 94.3 fL (80-100); Nucleated RBC # (auto) 0.07 K/uL (0-0); Nucleated RBC % (auto) 0.7 %; RDW Coefficient of Variation 16.4 % (11.5-14.5); RDW Standard Deviation 56.5 fL (36.4-46.3); Red Blood Count 3.35 M/uL (4.2-5.4); White Blood Count 10.02 K/uL (4.8-10.8)
[2018-08-18 06:54] LABS: Mean Platelet Volume 10.1 fL (7.4-10.4); Platelet Count 60 K/uL (130-400)
[2018-08-18 07:18] LABS: ALC (manual) 0.26 K/uL (1.2-3.4); Lymphocytes # (manual) 0.26 K/uL (1.2-3.4); Lymphocytes % (manual) 2.6 %; Metamyelocytes # (manual) 0.43 K/uL (0-0); Metamyelocytes % (manual) 4.3 %; Myelocytes # (manual) 0.43 K/uL (0-0); Myelocytes % (manual) 4.3 %; Neutrophils % (manual) 80.1 %; Promyelocytes # (manual) 0.17 K/uL (0-0); Promyelocytes % (manual) 1.7 %; Toxic Granulation 2+
[2018-08-18 07:21] LABS: Calcium 9.5 mg/dl (8.5-10.1); Creatinine Clr Calc Pharmacy 59.4 ml/min; Est GFR (African American) 78.8; Potassium 4.6 mmol/L (3.5-5.1)
[2018-08-18] MEDS: BUDESONIDE/FORMOTEROL FUMARATE 160/4.5 60 PUFFS/INHALER INH SCH ×2 (07:29→20:21)
[2018-08-18] MEDS: SUCRALFATE 1 GM/10 ML UDC PO SCH ×4 (07:29→20:20)
[2018-08-18] MEDS: dilTIAZem ER 120 MG CAPCR PO SCH (07:29)
[2018-08-18] MEDS: ASPIRIN 81 MG ECTAB PO SCH (07:30)
[2018-08-18] MEDS: MAGNESIUM OXIDE 400 MG TAB PO SCH ×2 (07:30→20:20)
[2018-08-18] MEDS: PARoxetine HCl 20 MG TAB PO SCH (07:30)
[2018-08-18] MEDS: MULTIVITAMIN TAB PO SCH (07:30)
[2018-08-18] MEDS: PANTOprazole 40 MG TAB PO SCH (07:30)
[2018-08-18] MEDS: POTASSIUM CHLORIDE 20 MEQ TABCR PO SCH ×2 (07:31→20:20)
[2018-08-18] MEDS: VANCOMYCIN HCL 1,000 MG in SODIUM CHLORIDE 0.9% 250 ML IV SCH ×2 (07:34→21:22)
[2018-08-18] MEDS: HEPARIN SOD 5,000 UNIT/0.5 ML VIAL SQ SCH ×2 (07:35→20:22)
[2018-08-18] MEDS: TRIAMCINOLONE ACET 0.1% ORABASE 5 GM TUBE MT SCH ×3 (08:45→15:50)
[2018-08-18] MEDS: FUROSEMIDE 40 MG TAB PO SCH (11:52)
--- NOTE | 2018-08-18 18:49 | Hospitalist Progress Note ---
Date of Service August 18, 2018 Assessment & Plan (1) Neutropenic sepsis: (2) Cellulitis of left lower extremity: (3) Hyponatremia: Present on admission, likely related to aute illness and chronic lung pathology as well as poor oral intake, this has improved (4) Dehydration: (5) Pedal edema: (6) Cancer of right lung: (7) Depression: (8) Anxiety: (9) Hyperlipidemia: (10) Hypertension: (11) COPD (chronic obstructive pulmonary disease): (12) Anemia: (13) Discharge planning issues: 73-year-old white female with past medical historyRight lung cancer,Anxiety dyslipidemia, COPD, hypertension,Admitted on August 13, 2018 because ofNeutropenic sepsis Neutropenic sepsis: pneumonia, along probably with some radiation pneumonitis O2 dependent History of COPD, Cellulitis of left lower extremity: Continue antibiotics including Vanco and cefepime, follow culture sensitivity, Culture from August 13, 2018 has been no close Possible subacute change Levaquin soon Continue nebulizer treatment, Tachycardia Hyponatremia: Follow sodium level Cancer of right lung: Anemia Depression, Anxiety: Hyperlipidemia: Accelerated Hypertension: Stable continue current medication GI DVT px covered Subjective Saw patient when she is doing therapist, obvious increased heart rate and blood pressure However generally feeling breathing better, Some cough and Occasion wheezing Denies fever and chills Denies chest pain palpitation, denies nausea vomiting abdominal pain diarrhea constipation Physical Exam Vital Signs (Past 24 Hours): Last Vital Signs Temp 36.5 C 08/18/18 14:56 Pulse 102 H 08/18/18 15:29 Resp 24 08/18/18 15:29 BP 161/89 H 08/18/18 14:56 Pulse Ox 97 08/18/18 15:29 Physical Exam: CONSTITUTIONAL:Standing up with therapist, oxygenating around 95% on 2 L. EYES: PERRL, conjunctivae normal, anicteric sclerae ENMT: external ear and nose normal, oropharynx normal mucous membranes dry RESPIRATORY: Bilateral air entry with decreased breath sounds also coarse br eathing, some scattered rhonchi. No crackles heard. mild Wheezing CARDIOVASCULAR: Rate/Rhythm: regular rhythm and + tachycardic , trace edema bilaterally GASTROINTESTINAL (Abdomen): Palpation: abdomen soft; abdomen nontender, no guarding and abdomen not rigid SKIN: No rash no lesion. Her cellulitis has also improved. PSYCHIATRIC: A+Ox3, euthymic affect NEUROLOGIC: The patient is alert awake and oriented x3. Nonfocal exam. She is moving all extremities. EXTREMITIES: Trace edema to lower extremities. Results & Data Laboratory Results Laboratory Results - last 24 hr 08/18/18 08/18/18 06:18 06:18 WBC 10.02 RBC 3.35 L Hgb 11.0 L Hct 31.6 L MCV 94.3 MCH 32.8 MCHC 34.8 RDW Std Deviation 56.5 H RDW Coeff of [place] 16.4 H Plt Count 60 L MPV 10.1 Absolute Nucleated RBC 0.07 H Nucleated RBC % (auto) 0.7 Neutrophils % (Manual) 80.1 Lymphocytes % (Manual) 2.6 Monocytes % (Manual) 7.0 Metamyelocytes % (Man) 4.3 Myelocytes % (Man) 4.3 Promyelocytes % (Man) 1.7 Neutrophils # (Manual) 8.03 H Total Absolute Neuts 8.03 H Lymphocytes # (Manual) 0.26 L Total Abs Lymphocytes 0.26 L Monocytes # (Manual) 0.70 H Metamyelocytes # (Man) 0.43 H Myelocytes # (Manual) 0.43 H Promyelocytes # (Man) 0.17 H Blood Smear Review Toxic Granulation 2+ Sodium 136 Potassium 4.6 Chloride 102 Carbon Dioxide 26 Anion Gap 8.0 BUN 28 H Creatinine 0.85 Est Cr Clr Drug Dosing 59.4 Est GFR ( Amer) 78.8 Est GFR (Non-Af Amer) 68.0 BUN/Creatinine Ratio 33.0 H Glucose 295 H Calcium 9.5
[2018-08-18] MEDS ORDERED: FUROSEMIDE 20 MG in SYRINGE 0 ML IV ONE (18:58)
[2018-08-18] MEDS: ATORVASTATIN 20 MG TAB PO SCH (20:20)
--- NOTE | 2018-08-19 01:18 | Consultation Report ---
DATE OF CONSULTATION: 08/18/2018 REASON FOR CONSULTATION: The patient is known to me with a history of lung carcinoma. HISTORY OF PRESENT ILLNESS: This patient is a 73-year-old white female well known to me with a history of chronic obstructive pulmonary disease, hypertension, dyslipidemia, anxiety and depression who was admitted with several day history of weakness and productive cough. I originally diagnosed the patient in 2012 with squamous dysplasia and carcinoma in situ. She was sent to [facility] for consideration of photodynamic therapy and instead received cryotherapy treatment on multiple occasions. The patient was closely surveilled and eventually was diagnosed with a squamous cell carcinoma of the lung. She was referred to Dr. Pulido and to the Radiation Oncology Unit for chemotherapy. She has a longstanding smoking history, having quit 15 years ago. She has been on oxygen at 2 liters and has been receiving chemotherapy through Dr. Pulido. I asked Dr. Torres to get involved in her care for tissue diagnosis on 04/01/2018 when she underwent EBUS procedure and she had a stage IIIA squamous cell carcinoma at level 4 and level 10 on the right also with level 7 lymph node involvement. She has had a history of neutropenic sepsis from chemotherapy and had been receiving chemotherapy. She was admitted and seen by both the hospitalist on 08/13/[address] Esteves. She was transfused a total of 3 units packed red blood cells due to severe anemia and was started on bilevel positive airway pressure with O2 on admission. The patient is a do not resuscitate. Most recent CT scan of the chest compared to approximately 1 month previously shows a right pleural base mass measuring almost 4.5 cm. I was asked by Dr. Torres to see the patient in consultation who has considered bronchoscopic evaluation. The patient seems to have responded to steroid therapy as of late, but was still extremely weak. Dr. Esteves's understanding was that Dr. Torres was going to proceed with bronchoscopy. She also is being treated for cellulitis of the lower extremity and has been thrombocytopenic. The CT scan done 2 days ago was compared with CT scan of the chest done on 07/23/2018. There has been rapid interval development of a pleural base mass involving the anterior aspect and inferior aspect of the right upper lobe measuring 3.8 x 4.4 cm, perhaps showing early invasive changes. There has been slowly progressive mediastinal adenopathy and several right-sided fractures. Moderate esophageal wall thickening was seen with progressive pleural thickening and small bilateral pleural effusions. For details of past medical history, medications, family and social history, I refer you to current and past record. PHYSICAL EXAMINATION: VITAL SIGNS: Blood pressure 161/89, pulse 102 and regular, respiratory rate 24, temperature 36.5 and O2 sat 97% on 2 liters. SKIN: Without lesion. HEENT: Atraumatic and normocephalic. PERRLA. LUNGS: Distant P and A. CARDIAC: Regular rate and rhythm. I do not appreciate a gallop. ABDOMEN: Soft and scaphoid. EXTREMITIES: No pedal edema, clubbing or cyanosis. NEUROLOGIC: Intact. No lateralizing signs. LABORATORY DATA: CT scan of the chest as noted. Current white count 10,000, H and H of 11 and 31.6 and platelet count only 62,000. Bronchial washing on 03/06/2018 grew Aspergillus species, not fumigatus. PT/INR 1.4. PTT/ INR 1.1. ABGs on admission pH 7.46, pCO2 of 33 and pO2 of 146 on 40% FIO2. BUN 28. Creatinine 0.85. Influenza type A and B with PCR negative. OVERALL ASSESSMENT: This patient is a 73-year-old female with nonsmall cell carcinoma, initially followed with squamous dysplasia and carcinoma in situ, receiving chemotherapy, currently admitted with worsening respiratory status and febrile illness, on I.V. cefepime, vancomycin and methylprednisolone. What is interesting to me is that the right upper lobe mass-like infiltrate seems to have promulgated in virtually a month's time, which would be an incredibly aggressive cancer. Suspect we are dealing with a significant right upper lobe collapse with atelectasis although in tracing the endobronchial anatomy to that region, I cannot see a cutoff sign to suggest mucoid impaction. I would be hesitant to biopsy given her platelet count. I am not really sure biopsy would give us any additional information to guide us for treatment at this point in time. Mucoid impaction with relief of obstruction might suggest it could be helpful to look bronchoscopically but would first see how she responds to the steroid therapy and current antibiotic administration. We will follow along with you and reccomend holding off on bronchoscopic efforts at this point in time. [facility]
[2018-08-19] MEDS: ALBUT/IPRATROP 3MG/0.5MG NEB 3 ML VIAL NEB SCH ×4 (03:29→19:22)
[2018-08-19] MEDS: methylPREDNISolone 60 MG in SYRINGE 0 ML IV SCH ×2 (04:02→17:14)
[2018-08-19] MEDS: CEFEPIME 2,000 MG in SYRINGE 7.5 ML IV SCH (05:56)
[2018-08-19 06:48] LABS: BUN Creatinine Ratio 30.4 (10-20); Calcium 8.9 mg/dl (8.5-10.1); Creatinine Clr Calc Pharmacy 50.9 ml/min; Est GFR (African American) 67.2; Est GFR (Non-African American) 57.9; Magnesium 1.8 mg/dl (1.8-2.4); Potassium 3.2 mmol/L (3.5-5.1)
[2018-08-19] MEDS ORDERED: POTASSIUM CHLORIDE 10 MEQ TABCR PO STA (08:15)
[2018-08-19] MEDS: TRIAMCINOLONE ACET 0.1% ORABASE 5 GM TUBE MT SCH ×3 (08:30→17:15)
[2018-08-19] MEDS: SUCRALFATE 1 GM/10 ML UDC PO SCH ×4 (08:32→20:50)
[2018-08-19] MEDS: HEPARIN SOD 5,000 UNIT/0.5 ML VIAL SQ SCH ×2 (08:33→20:51)
[2018-08-19] MEDS: ASPIRIN 81 MG ECTAB PO SCH (08:33)
[2018-08-19] MEDS: POTASSIUM CHLORIDE 20 MEQ TABCR PO SCH ×2 (08:33→20:54)
[2018-08-19] MEDS: MAGNESIUM OXIDE 400 MG TAB PO SCH ×2 (08:34→20:55)
[2018-08-19] MEDS: MULTIVITAMIN TAB PO SCH (08:34)
[2018-08-19] MEDS: PARoxetine HCl 20 MG TAB PO SCH (08:34)
[2018-08-19] MEDS: FUROSEMIDE 40 MG TAB PO SCH (08:34)
[2018-08-19] MEDS: BUDESONIDE/FORMOTEROL FUMARATE 160/4.5 60 PUFFS/INHALER INH SCH ×2 (08:35→20:55)
[2018-08-19] MEDS: PANTOprazole 40 MG TAB PO SCH (08:35)
[2018-08-19] MEDS: dilTIAZem ER 120 MG CAPCR PO SCH (08:35)
[2018-08-19] MEDS ORDERED: ALBUT/IPRATROP 3MG/0.5MG NEB 3 ML VIAL NEB PRN (10:18)
[2018-08-19] MEDS ORDERED: POLYETHYLENE (MIRALAX) 17 GM PACK PO PRN (10:19)
--- NOTE | 2018-08-19 10:29 | Consultation Report ---
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 The patient was admitted to [facility] on 08/13/2018 after presenting with generalized asthenia, shortness of breath and productive cough. At time of admission, she denied any fevers or chills. The patient utilizes inhalers and corticosteroids to control COPD. The patient was worked up and subsequently admitted by the hospitalist service. Chest x-ray done on admission revealed an asymmetric right hilar prominence, thought to be attenuated by positioning. On 08/15/2018, CT scan of the chest revealed interval development of pleural based mass anterior aspect of the right upper lung. This measures 4.4 x 3.8 cm, shows linear extension to the anterior chest wall on the right, right lateral superior/anterior mediastinum and right retrohilar pleural based regions. Progressive pleural thickening in both lung bases combined with small pleural effusions. For this reason, the patient was seen by the Thoracic Surgery Service, who reviewed her most recent CT scan. Dr. Torres feels this may be collapse and not necessarily associated with disease progression. There is also a thought that she may be suffering from a radiation-induced pneumonitis and recommended steroid therapy. The patient was originally diagnosed with stage III squamous cell carcinoma of the lung in 02/2018. Unfortunately, she was evaluated by Dr. Torres, who felt she was not operable. Therefore, decided to proceed with combined chemoradiation. She received carboplatin/paclitaxel as radiosensitizer. Did reasonably well throughout combined modality therapy. She then received her first course of consolidation on the 05 of August. I have seen the patient on the and at that time decided to give her an additional week because of some comorbid issues, particularly odynophagia attributable to her prior treatment. In summary, I believe many of her difficulties were brought on by consolidative chemotherapy and needs additional time to recover. She is making slow, but steady progress. Claims to be maintaining her appetite and is ambulating with assistance. She was tremulous at bedside, which I suspect may be attributable to corticosteroids. She was awake and alert and appropriate. Primary service has asked me to assist in her recovery. The patient is battling with neutropenic fever. Her counts are slowly returning. She continues broad-spectrum antimicrobials. PAST MEDICAL HISTORY: Significant for stage IIIA squamous cell carcinoma of the lung, hypertension, COPD, asthma, hyperlipidemia, anxiety/depression, anemia, odynophagia/dysphagia, irritable bowel disease, morbid obesity and hypertension. PAST SURGICAL HISTORY: Includes appendectomy, hysterectomy, bronchoscopy, cataract surgery, colonoscopy, foot surgery, repair of rotator cuff, shoulder replacement on the left. HOME MEDICATIONS: Include Symbicort 1 puff inhaled b.i.d., albuterol sulfate 2 puffs inhaled q. 6 hours p.r.n., alprazolam 0.25 mg p.o. b.i.d. p.r.n., aspirin 81 mg p.o. daily, atorvastatin 20 mg p.o. daily, diltiazem 120 mg p.o. q.a.m., Hydromet 5 mL p.o. q. 4 hours p.r.n., ipratropium/albuterol 3 mL inhaled q.i.d., Prevacid 15 mg p.o. b.i.d., losartan 50 mg p.o. daily, multivitamin 1 tablet p.o. daily, paroxetine 20 mg p.o. daily, sucralfate 5 mL p.o. q.i.d., tramadol 50 mg p.o. q. 8 hours p.r.n., Lasix 20 mg p.o. daily. ALLERGIES: HYDROCHLOROTHIAZIDE. FAMILY HISTORY: Father passed at age 67 from lung cancer, brother passed at age 68 from liver cancer, another brother passed in his 60s attributable to coronary artery disease. She has a brother who suffers from COPD. SOCIAL HISTORY: The patient is . She is a nonsmoker and nondrinker, nonsubstance abuse. REVIEW OF SYSTEMS: GENERAL: Again, mostly for generalized asthenia. No fevers or chills. Positive for generalized weakness. Positive for anorexia and positive for odynophagia. SKIN: No rashes or lesions. No history of dermatoses. HEENT: No current headaches, lightheadedness or dizziness. No acute visual or hearing deficits. No sinus symptoms. Positive for sore throat. LYMPH: No history of lymphoproliferative disease. CARDIAC: No history of coronary artery disease. No current angina or palpitations. PULMONARY: Positive for COPD, positive for cough. She is not currently dyspneic. Denies hemoptysis. GASTROINTESTINAL: Negative for abdominal pain, nausea, vomiting, diarrhea or constipation. GENITOURINARY: No hematuria, dysuria, urinary incontinence. PSYCHIATRIC: Positive for history of depression and anxiety. ENDOCRINE: Negative for diabetes or thyroid disease. NEUROLOGIC: Negative for seizure, stroke or migraine headache. HEMATOLOGIC: Positive for treatment induced cytopenias. PHYSICAL EXAMINATION: GENERAL: Very pleasant, somewhat tremulous 73-year-old female patient, awake, alert and appropriate, in no acute distress. VITAL SIGNS: Temperature 36.3, pulse 105, respiratory rate 20, blood pressure 158/89. SKIN: Pale, warm, dry, noncyanotic without petechia, rash or ecchymosis. HEENT: Head atraumatic, normocephalic. Eyes: PERRLA, EOMI. Sclerae nonicteric. No conjunctival injection. Nares are patent without rhinorrhea or discharge. Throat clear. Tongue midline. Mucous membranes are moist. NECK: Supple without JVD or thyromegaly. LYMPH: No cervical or supraclavicular palpable nodes. HEART: Tachy, but regular. LUNGS: Clear to auscultation bilaterally. ABDOMEN: Obese, soft, nontender, nondistended. EXTREMITIES: No clubbing, cyanosis or edema. NEUROLOGICAL: Grossly intact. LABORATORY DATA: Sodium 136, potassium 3.2, chloride 99, carbon dioxide 29, creatinine 0.97, BUN 29, glucose 280. IMPRESSION: 1. Neutropenic fever. 2. Asthenia attributable to consolidative chemotherapy. 3. Cytopenias attributable to chemotherapeutic effect. 4. Hyponatremia. 5. Atelectasis/lung collapse. 6. Chronic obstructive pulmonary disease. 7. Stage III squamous cell carcinoma of the lung. PLAN: I visited with the patient at bedside today. She was somewhat tremulous this morning, but was awake, alert and appropriate, answers questions. She seems to be making still slow, but steady progress. WBCs and hemoglobin are both improving. Her platelet count still lags, which is most likely attributable to carboplatin. Appreciate both Pulmonary and Thoracic Surgery input. I would agree too that the radiographic findings are not sales representative groceries of disease progression considering this lady recently finished chemoradiation and received her first cycle of consolidation. I agree with current medical management to support her through these difficulties. Obviously on my end, I need to strongly consider significant dose reduction to avoid adverse effects and rehospitalization. I was contacted by the Thoracic Surgery Service alerting me to her anemic state and agreed with proceeding with 2 units of packed RBCs. I have nothing further to add at this time and we will continue to periodically visit the patient until discharge. I will then plan to reconvene with her, discuss how we move forward. She is due 2 more consolidations, but again need to strongly consider significant dose reduction moving forward. Thank you for allowing me to participate in her care.
[2018-08-19] MEDS ORDERED: VANCOMYCIN TROUGH ONE (11:30)
[2018-08-19] MEDS: levoFLOXacin 750 MG TAB PO SCH (12:00)
--- NOTE | 2018-08-19 16:49 | Hospitalist Progress Note ---
Date of Service August 19, 2018 Assessment & Plan (1) Neutropenic sepsis: (2) Cellulitis of left lower extremity: (3) Hyponatremia: (4) Dehydration: (5) Pedal edema: (6) Cancer of right lung: (7) Depression: (8) Anxiety: (9) Hyperlipidemia: (10) Hypertension: (11) COPD (chronic obstructive pulmonary disease): (12) Anemia: (13) Discharge planning issues: 73-year-old white female with past medical historyRight lung cancer,Anxiety dyslipidemia, COPD, hypertension,Admitted on August 13, 2018 because of Neutropenic sepsis Neutropenic sepsis: Improved and resolving pneumonia, probably with some radiation pneumonitis Was O2 dependent, able to taper off oxygen today History of COPD, Cellulitis of left lower extremity: Has been on antibiotics including Vanco and cefepime, , Culture from August 13, 2018 has been no growth Change antibiotic to oral Levaquin renal dose, Make sure nebulizer treatment scheduled and every 2 hours as needed for no wheezing Tapering Solu-Medrol to 60 every 8 to 60 every 12 Tachycardia Hyponatremia: Follow sodium level which was resolved Hypokalemia replace Cancer of right lung: Anemia Depression, Anxiety: Continue current medical Hyperlipidemia: Continue current medication Accelerated Hypertension: Resume home dose of Rocephin Hyperglycemia negative because of Solu-Medrol, is tapering down Solu-Medrol GI DVT px covered Subjective in bed, But she was up and walk with therapist a few steps more which is improved compared to yesterday Some cough and significant wheezing wheezing Patient feeling more strength Denies fever and chills Denies dysuria urgency or frequency Denies chest pain palpitation, denies nausea vomiting abdominal pain diarrhea constipation Physical Exam Vital Signs (Past 24 Hours): Last Vital Signs Temp 36.6 C 08/19/18 15:00 Pulse 102 H 08/19/18 15:00 Resp 20 08/19/18 15:00 BP 169/90 H 08/19/18 15:00 Pulse Ox 93 08/19/18 15:00 Physical Exam: CONSTITUTIONAL: Pleasant and alert orientated conversational, oxygenating around 93% on room air, EYES: PERRL, conjunctivae normal, anicteric sclerae ENMT: external ear and nose normal, oropharynx normal mucous membranes dry RESPIRATORY: Bilateral air entry with decreased breath sounds also coarse breathing, some scattered rhonchi. A lot of wheezing, fevers, no crackles heard. CARDIOVASCULAR: Rate/Rhythm: regular rhythm and + tachycardic , trace edema bilaterally GASTROINTESTINAL (Abdomen): Palpation: abdomen soft; abdomen nontender, no guarding and abdomen not rigid SKIN: No rash no lesion. Her cellulitis has also improved. PSYCHIATRIC: A+Ox3, euthymic affect NEUROLOGIC: The patient is alert awake and oriented x3. Nonfocal exam. She is moving all extremities. EXTREMITIES: Trace edema to lower extremities. Results & Data Laboratory Results Laboratory Results - last 24 hr 08/19/18 05:32 Sodium 136 Potassium 3.2 L D Chloride 99 Carbon Dioxide 29 Anion Gap 8.0 BUN 29 H Creatinine 0.97 Est Cr Clr Drug Dosing 50.9 Est GFR ( Amer) 67.2 Est GFR (Non-Af Amer) 57.9 BUN/Creatinine Ratio 30.4 H Glucose 280 H Calcium 8.9 Phosphorus 4.0 Magnesium 1.8 Microbiology 08/13/18 17:55 Blood Blood Culture - Final No growth 08/13/18 17:25 Blood Blood Culture - Final No growth
[2018-08-19] MEDS: ATORVASTATIN 20 MG TAB PO SCH (20:55)
[2018-08-20] MEDS: ALBUT/IPRATROP 3MG/0.5MG NEB 3 ML VIAL NEB SCH ×4 (01:38→18:52)
[2018-08-20] MEDS: methylPREDNISolone 60 MG in SYRINGE 0 ML IV SCH ×2 (03:43→17:04)
[2018-08-20 06:28] LABS: Albumin Level 2.3 gm/dl (3.4-5.0); BUN Creatinine Ratio 26.8 (10-20); Calcium 8.7 mg/dl (8.5-10.1); Creatinine Clr Calc Pharmacy 48.9 ml/min; Est GFR (Non-African American) 55.2; Magnesium 1.7 mg/dl (1.8-2.4); Potassium 3.4 mmol/L (3.5-5.1)
[2018-08-20 06:30] LABS: Albumin Globulin Ratio 0.7 (0.9-2); Bilirubin,Total 0.4 mg/dl (0.2-1); Globulin 3.3 gm/dl (2.5-4.0); Phosphorus 3.8 mg/dl (2.5-4.9); Total Protein 5.6 gm/dl (6.4-8.2)
[2018-08-20] MEDS ORDERED: POTASSIUM CHLORIDE 10 MEQ TABCR PO STA (08:40)
[2018-08-20] MEDS: TRIAMCINOLONE ACET 0.1% ORABASE 5 GM TUBE MT SCH ×3 (08:42→17:05)
[2018-08-20] MEDS: MULTIVITAMIN TAB PO SCH (08:42)
[2018-08-20] MEDS: SUCRALFATE 1 GM/10 ML UDC PO SCH ×4 (08:42→20:33)
[2018-08-20] MEDS: PANTOprazole 40 MG TAB PO SCH (08:42)
[2018-08-20] MEDS: MAGNESIUM OXIDE 400 MG TAB PO SCH ×2 (08:43→20:33)
[2018-08-20] MEDS: ASPIRIN 81 MG ECTAB PO SCH (08:43)
[2018-08-20] MEDS: dilTIAZem ER 120 MG CAPCR PO SCH (08:43)
[2018-08-20] MEDS: PARoxetine HCl 20 MG TAB PO SCH (08:43)
[2018-08-20] MEDS: POTASSIUM CHLORIDE 20 MEQ TABCR PO SCH ×2 (08:43→20:34)
[2018-08-20] MEDS: BUDESONIDE/FORMOTEROL FUMARATE 160/4.5 60 PUFFS/INHALER INH SCH ×2 (08:43→20:36)
[2018-08-20] MEDS: FUROSEMIDE 40 MG TAB PO SCH (08:43)
[2018-08-20] MEDS: LOSARTAN POTASSIUM 50 MG TAB PO SCH (08:43)
[2018-08-20] MEDS: HEPARIN SOD 5,000 UNIT/0.5 ML VIAL SQ SCH ×2 (09:02→20:34)
[2018-08-20] MEDS ORDERED: DEXTROSE 50% 50 ML SYRINGE IV PRN (12:30)
[2018-08-20] MEDS ORDERED: GLUCOSE 40% GEL 15 GM TUBE PO PRN (12:30)
[2018-08-20] MEDS ORDERED: GLUCOSE 10 TABS/TUBE PO PRN (12:30)
[2018-08-20] MEDS ORDERED: LANTUS PER UNIT CHARGE SQ ONE (12:30)
[2018-08-20] MEDS ORDERED: CARBOHYDRATES FOR HYPOGLYCEMIA PO PRN (12:30)
[2018-08-20] MEDS ORDERED: GLUCAGON FOR INJ 1 MG VIAL SQ PRN (12:30)
[2018-08-20] MEDS: INSULIN ASPART 100 UNITS/ML 3 ML PEN SC SCH ×3 (13:01→20:38)
[2018-08-20] MEDS: levoFLOXacin 750 MG TAB PO SCH (13:02)
--- NOTE | 2018-08-20 18:58 | Hospitalist Progress Note ---
Date of Service August 20, 2018 Assessment & Plan (1) Neutropenic sepsis: (2) Cellulitis of left lower extremity: (3) Hyponatremia: (4) Dehydration: (5) Pedal edema: (6) Cancer of right lung: (7) Depression: (8) Anxiety: (9) Hyperlipidemia: (10) Hypertension: (11) COPD (chronic obstructive pulmonary disease): (12) Anemia: (13) Discharge planning issues: 73-year-old white female with past medical history of right lung cancer,Anxiety dyslipidemia, COPD, hypertension,Admitted on August 13, 2018 because of neutropenic sepsis, stable improving Neutropenic sepsis: Improved, resolved pneumonia, probably with some radiation pneumonitis Was O2 dependent, able to taper off oxygen today, continue oxygenation well History of COPD, Cellulitis of left lower extremity: Resolved Has been on antibiotics including Vanco and cefepime, , Culture from August 13, 2018 has been no growth Change antibiotic to oral Levaquin renal dose, will continue to finish a total 10 days Make sure nebulizer treatment scheduled and every 2 hours as needed for wheezing, this was started from yesterday which has been so helpful Continue Solu-Medrol at 60 every 12, Tachycardia, resolved Hyponatremia: Follow sodium level which was resolved Hypokalemia replaced Cancer of right lung: Anemia Depression, Anxiety: Continue current medical Hyperlipidemia: Continue current medication Hyperglycemia which is because of Solu-Medrol, is tapering down Solu-Medrol, and will give 1 dose of Lantus after discussed with pharmacy Continue PT OT possible discharge to [facility] on Saturday GI DVT px covered Subjective Continue doing well and improving, was up and walk with therapist, pleasant conversational, no more wheezing Patient feeling more strength Denies fever and chills Denies dysuria urgency or frequency Denies chest pain palpitation, denies nausea vomiting abdominal pain diarrhea constipation Physical Exam Vital Signs (Past 24 Hours): Last Vital Signs Temp 36.5 C 08/20/18 15:54 Pulse 83 08/20/18 15:54 Resp 18 08/20/18 15:54 BP 148/73 H 08/20/18 15:54 Pulse Ox 90 08/20/18 15:54 Physical Exam: CONSTITUTIONAL: Much more pleasant to speak full sentence , no acute distress EYES: PERRL, conjunctivae normal, anicteric sclerae ENMT: external ear and nose normal, oropharynx normal mucous membranes dry RESPIRATORY: Bilateral air entry with decreased breath sounds much better than yesterday no obvious rhonchi or wheezing, no crackles CARDIOVASCULAR: Rate/Rhythm: regular rhythm and + tachycardic , trace edema bilaterally GASTROINTESTINALPalpation: abdomen soft; abdomen nontender, no guarding and abdomen not rigid SKIN: No rash no lesion. billLateral lower extremity skin has no obvious rash PSYCHIATRIC: A+Ox3, euthymic affect NEUROLOGIC: The patient is alert awake and oriented x3. Nonfocal exam. She is moving all extremities. EXTREMITIES: Trace edema to lower extremities. Results & Data Laboratory Results Laboratory Results - last 24 hr 08/20/18 08/20/18 08/20/18 05:27 12:13 16:45 Sodium 137 Potassium 3.4 L Chloride 98 Carbon Dioxide 34 H Anion Gap 5.0 BUN 27 H Creatinine 1.01 Est Cr Clr Drug Dosing 48.9 Est GFR ( Amer) 64.0 Est GFR (Non-Af Amer) 55.2 BUN/Creatinine Ratio 26.8 H Glucose 255 H POC Glucose 295 H 142 H Calcium 8.7 Phosphorus 3.8 Magnesium 1.7 L Total Bilirubin 0.4 AST 11 L ALT 27 Alkaline Phosphatase 95 Total Protein 5.6 L Albumin 2.3 L Globulin 3.3 Albumin/Globulin Ratio 0.7 L
--- NOTE | 2018-08-20 19:36 | Progress Note ---
DATE: 08/20/2018 Ms. Arellano was seen today on 08/20/2018. She is on room air. Her lungs sound very good. At this point, I will sign off the case. I will be glad to see her at any time. I do not think this patient needs a bronchoscopy at this point, but I would repeat imaging in the future to make sure her lung expands.
[2018-08-20] MEDS: ATORVASTATIN 20 MG TAB PO SCH (20:33)
[2018-08-21] MEDS: ALBUT/IPRATROP 3MG/0.5MG NEB 3 ML VIAL NEB SCH ×4 (02:09→19:02)
[2018-08-21] MEDS: methylPREDNISolone 60 MG in SYRINGE 0 ML IV SCH (04:53)
[2018-08-21] MEDS: SUCRALFATE 1 GM/10 ML UDC PO SCH ×4 (08:24→20:22)
[2018-08-21] MEDS: TRIAMCINOLONE ACET 0.1% ORABASE 5 GM TUBE MT SCH ×3 (08:24→16:46)
[2018-08-21] MEDS: dilTIAZem ER 120 MG CAPCR PO SCH (08:25)
[2018-08-21] MEDS: POTASSIUM CHLORIDE 20 MEQ TABCR PO SCH ×2 (08:25→20:22)
[2018-08-21] MEDS: FUROSEMIDE 40 MG TAB PO SCH (08:25)
[2018-08-21] MEDS: PANTOprazole 40 MG TAB PO SCH (08:25)
[2018-08-21] MEDS: LOSARTAN POTASSIUM 50 MG TAB PO SCH (08:25)
[2018-08-21] MEDS: MAGNESIUM OXIDE 400 MG TAB PO SCH ×2 (08:25→20:22)
[2018-08-21] MEDS: HEPARIN SOD 5,000 UNIT/0.5 ML VIAL SQ SCH ×2 (08:25→20:22)
[2018-08-21] MEDS: PARoxetine HCl 20 MG TAB PO SCH (08:25)
[2018-08-21] MEDS: MULTIVITAMIN TAB PO SCH (08:25)
[2018-08-21] MEDS: ASPIRIN 81 MG ECTAB PO SCH (08:25)
[2018-08-21] MEDS: BUDESONIDE/FORMOTEROL FUMARATE 160/4.5 60 PUFFS/INHALER INH SCH ×2 (08:25→20:23)
[2018-08-21] MEDS: INSULIN ASPART 100 UNITS/ML 3 ML PEN SC SCH ×4 (08:26→20:21)
--- NOTE | 2018-08-21 10:03 | Progress Note ---
DATE: 08/21/2018 MEDICAL ONCOLOGY PROGRESS NOTE DIAGNOSES: 1. Neutropenic fever. 2. Asthenia, attributable to consolidative chemotherapeutic. 3. Cytopenias, attributable to chemotherapeutic effect. 4. Hyponatremia. 5. Atelectasis/lung collapse. 6. Chronic obstructive pulmonary disease. 7. Stage III squamous cell carcinoma of the lung. SUBJECTIVE: Linsey was seen at bedside. She definitely is much brighter from when I saw her about 48 hours ago. She still struggles with p.o. intake because of stomatitis. She does have a large erosion in the upper palate and will recommend local treatment. She is moving her bowels occasionally and has gotten out of bed with some assistance. Nursing reports no overnight difficulties. Overall, it appears she is making inroads towards discharge. PHYSICAL EXAMINATION: GENERAL: She is in no acute distress. VITAL SIGNS: Temperature 36.5, pulse 90, respiratory rate 18, blood pressure 172/82. SKIN: Warm, dry, noncyanotic without petechia, rash or ecchymosis. HEENT: Again, there is a 2-3 mm erosion in the upper palate and I believe it is causing a lot of her oral discomfort. NECK: Supple. Trachea is midline. LYMPH: No palpable lymphadenopathy. CARDIAC: Regular rate and rhythm. LUNGS: Clear to auscultation bilaterally. ABDOMEN: Soft, nontender, nondistended. EXTREMITIES: No clubbing, cyanosis or edema. NEUROLOGIC: Grossly intact. LABORATORY DATA: WBC count 10,000, hemoglobin 11, platelet count 60,000. Sodium 137, potassium 3.4, chloride 98, carbon dioxide 34, BUN 27, creatinine 1.01, glucose 255. Magnesium slightly decreased at 1.7, albumin 2.3. IMPRESSION: 1. Neutropenic fever. 2. Stomatitis. 3. Asthenia, attributable to chemotherapeutic effect. 4. Cytopenias, attributable to chemotherapeutic effect. 5. Hypoalbuminemia. 6. Hypomagnesemia. 7. Stage III squamous cell carcinoma of the lung. PLAN: Linsey is a pleasant 73-year-old female patient who received her initial course of carboplatin and paclitaxel as consolidation. Shortly thereafter, began to experience severe asthenia, anorexia and stomatitis. She has a large erosion in the upper part of her palate and could utilize Magic mouthwash to allow healing. Perhaps a steroid-based dental paste sometimes is helpful in healing these erosions. Replace electrolytes and encourage p.o. intake as her mouth improved. Her peripheral blood accounts for the most part with the exception of platelets have recovered. I have nothing further to add and will continue to follow her periodically during her stay. Again, thank you very much for assisting me in the care of this very pleasant patient.
[2018-08-21] MEDS ORDERED: LOSARTAN POTASSIUM 25 MG TAB PO ONE (10:04)
[2018-08-21] MEDS: levoFLOXacin 750 MG TAB PO SCH (11:25)
[2018-08-21] MEDS: DEXAMETHASONE CONC 3.75 MG, NYSTATIN 30 ML, DiphenhydrAMINE Syrup 300 MG, ORA-SWEET SYR... PO SCH ×3 (11:26→21:49)
[2018-08-21] MEDS ORDERED: dilTIAZem HCL 30 MG TAB PO ONE (17:21)
--- NOTE | 2018-08-21 17:21 | Hospitalist Progress Note ---
Date of Service August 21, 2018 Assessment & Plan (1) Neutropenic sepsis: (2) Cellulitis of left lower extremity: (3) Hyponatremia: (4) Dehydration: (5) Pedal edema: (6) Cancer of right lung: (7) Depression: (8) Anxiety: (9) Hyperlipidemia: (10) Hypertension: (11) COPD (chronic obstructive pulmonary disease): (12) Anemia: (13) Discharge planning issues: 73-year-old white female with past medical history of right lung cancer, Anxiety dyslipidemia, COPD, hypertension,Admitted on August 13, 2018 because of neutropenic sepsis, has been stable /improving Neutropenic sepsis: Improved, resolved pneumonia, probably with some radiation pneumonitis Was O2 dependent, able to taper off oxygen History of COPD, Cellulitis of left lower extremity: Resolved Has been on antibiotics including Vanco and cefepime, , Culture from August 13, 2018 has been no growth Change antibiotic to oral Levaquin renal dose, will continue to finish a total 10 days, 8/10 days cont nebulizer treatment scheduled and every 2 hours as needed for wheezing, Discontinue Solu-Medrol, start oral prednisone 40 mg p.o. daily Hyponatremia: Follow sodium level which was resolved Hypokalemia replaced Cancer of right lung: stable Anemia: stable Depression, Anxiety: Continue current medical Tolerated hypertension and elevated heart rate, increased Cardizem CD to 180 p.o. daily , added additional dose of Cardizem 60 mg p.o. now Hyperlipidemia: Continue current medication Hyperglycemia which is because of steroid such as Solu-Medrol, Continue PT OT possible discharge to [place] on Saturday GI DVT px covered Subjective Complaint about oral pain, which is new, with mucus a few blisters , associated with elevated blood pressure, Otherwise significant improving, able to taper off oxygen, has been continue physical therapy Patient feeling more strength Denies fever and chills Denies dysuria urgency or frequency Denies chest pain palpitation, denies nausea vomiting abdominal pain diarrhea constipation Physical Exam Vital Signs (Past 24 Hours): Last Vital Signs Temp 36.7 C 08/21/18 15:07 Pulse 109 H 08/21/18 15:07 Resp 18 08/21/18 15:07 BP 146/77 H 08/21/18 15:07 Pulse Ox 94 08/21/18 15:07 Physical Exam: CONSTITUTIONAL: in bed, comfortable, EYES: PERRL, conjunctivae normal, anicteric sclerae ENMT: external ear and nose normal, oropharynx normal mucous membranes dry RESPIRATORY: Bilateral air entry with decreased breath sounds also coarse breathing, no wheezing CARDIOVASCULAR: Rate/Rhythm: regular rhythm and + tachycardic , trace edema bilaterally GASTROINTESTINAL (Abdomen): Palpation: abdomen soft; abdomen nontender, no guarding and abdomen not rigid SKIN: No rash no lesion. Her cellulitis has also improved. PSYCHIATRIC: A+Ox3, euthymic affect NEUROLOGIC: The patient is alert awake and oriented x3. Nonfocal exam. She is moving all extremities. EXTREMITIES: Trace edema to lower extremities. Results & Data Laboratory Results Laboratory Results - last 24 hr 08/20/18 08/21/18 08/21/18 19:42 07:28 11:51 POC Glucose 190 H 241 H 297 H 08/21/18 16:34 POC Glucose 173 H
[2018-08-21] MEDS: ATORVASTATIN 20 MG TAB PO SCH (20:22)
[2018-08-22] MEDS: ALBUT/IPRATROP 3MG/0.5MG NEB 3 ML VIAL NEB SCH ×2 (01:56→07:04)
[2018-08-22] MEDS: DEXAMETHASONE CONC 3.75 MG, NYSTATIN 30 ML, DiphenhydrAMINE Syrup 300 MG, ORA-SWEET SYR... PO SCH (05:51)
[2018-08-22 07:18] LABS: BUN Creatinine Ratio 30.1 (10-20); Calcium 8.9 mg/dl (8.5-10.1); Creatinine Clr Calc Pharmacy 48.5 ml/min; Est GFR (African American) 64.7; Est GFR (Non-African American) 55.8; Magnesium 1.8 mg/dl (1.8-2.4); Potassium 3.5 mmol/L (3.5-5.1)
[2018-08-22 07:39] VITALS: TEMP 97.5; O2SAT 96
[2018-08-22 07:39] LABS: Phosphorus 2.2 mg/dl (2.5-4.9)
[2018-08-22] MEDS: INSULIN ASPART 100 UNITS/ML 3 ML PEN SC SCH (08:26)
[2018-08-22] MEDS: TRIAMCINOLONE ACET 0.1% ORABASE 5 GM TUBE MT SCH (08:26)
[2018-08-22] MEDS: SUCRALFATE 1 GM/10 ML UDC PO SCH (08:27)
[2018-08-22] MEDS: ASPIRIN 81 MG ECTAB PO SCH (08:28)
[2018-08-22] MEDS: PANTOprazole 40 MG TAB PO SCH (08:29)
[2018-08-22] MEDS: PARoxetine HCl 20 MG TAB PO SCH (08:29)
[2018-08-22] MEDS: MULTIVITAMIN TAB PO SCH (08:29)
[2018-08-22] MEDS: dilTIAZem ER 120 MG CAPCR PO SCH (08:30)
[2018-08-22] MEDS: FUROSEMIDE 40 MG TAB PO SCH (08:31)
[2018-08-22] MEDS: BUDESONIDE/FORMOTEROL FUMARATE 160/4.5 60 PUFFS/INHALER INH SCH (08:31)
[2018-08-22] MEDS: MAGNESIUM OXIDE 400 MG TAB PO SCH (08:32)
[2018-08-22] MEDS: POTASSIUM CHLORIDE 20 MEQ TABCR PO SCH (08:32)
[2018-08-22] MEDS: HEPARIN SOD 5,000 UNIT/0.5 ML VIAL SQ SCH (08:33)
--- NOTE | 2018-08-22 08:40 | Progress Note ---
DATE: 08/22/2018 MEDICAL ONCOLOGY PROGRESS NOTE DIAGNOSES: 1. Neutropenic fever. 2. Asthenia, attributable to chemotherapy. 3. Cytopenias, attributable to chemotherapy. 4. Hyponatremia. 5. Atelectasis/lung lung collapse. 6. Chronic obstructive pulmonary disease. 7. Stage III squamous cell carcinoma of the lung. 8. Stomatitis. SUBJECTIVE: It is my pleasure to visit with Linsey at bedside this morning. She seems to be making more progress, admits to better p.o. intake over the last 24 hours. She reports having difficulty ambulating, and thus according to Linsey, plans are underway for rehabilitation placement post-discharge. She is moving her bowels regularly. She denies any nausea or vomiting or pain. Nursing reports no overnight difficulties. PHYSICAL EXAMINATION: GENERAL: Very pleasant 73-year-old female patient in no acute distress. VITAL SIGNS: Temperature 36.4, pulse 89, respiratory rate 16, blood pressure 147/77. SKIN: Without rash or lesion. HEENT: Upper palate erosion once again noted. NECK: Supple. Trachea midline. HEART: Regular rate and rhythm. LUNGS: Clear to auscultation bilaterally. ABDOMEN: Soft, nontender, nondistended. EXTREMITIES: No clubbing, cyanosis or edema. LABORATORY DATA: Sodium 135, potassium 3.5, chloride 95, carbon dioxide 33, BUN 30, creatinine 1, phosphorus 2.2. IMPRESSION: 1. Neutropenic fever. 2. Stomatitis. 3. Asthenia. 4. Cytopenias, attributable to chemotherapeutic effect. 5. Stage III squamous cell carcinoma of the lung. PLAN: Linsey was seen and examined again this morning at bedside. Mentally, she is a bit brighter and admits to improved p.o. intake. Her mouth remains sore. Magic mouthwash was added and has been helpful. As previously recommended, replace electrolytes and encourage more protein intake. For the most part, her blood counts have recovered and platelets should normalize over time. Agree with rehabilitation placement. Will hold further chemotherapy until Linsey is seen in the office. Thank you for allowing me to participate in her care.
[2018-08-22] MEDS ORDERED: POT PHOSPHATE MONOBASIC W/ SOD TAB PO SCH (09:00)
[2018-08-22] MEDS ORDERED: predniSONE 20 MG TAB PO SCH (09:00)
[2018-08-22] MEDS ORDERED: LOSARTAN POTASSIUM 25 MG TAB PO SCH (09:00)
[2018-08-22] MEDS ORDERED: dilTIAZem HCl 60 MG TAB PO STA (10:19)
[2018-08-22 10:31] VITALS: BP 146/77; PULSE 96
--- NOTE | 2018-08-22 18:06 | Discharge Summary ---
Date of Service August 22, 2018 Admission HPI Per Admitting Provider Ms. Arellano is a 73-year-old, very pleasant female with a history of lung cancer, COPD, hypertension, hyperlipidemia, anxiety, depression who presents to the emergency department with a 2-day history of feeling weak, with a productive cough and shortness of breath. Ms. Arellano's lung cancer was diagnosed in 2012. She has received radiation for this. She started chemotherapy on May 13, 2018, and her last chemotherapy treatment was August 05. Her daughter states that she was quite weak after her last treatment, and Ms. Arellano notes that 2 days ago, she felt even weaker, and developed a productive cough. She states that she was short of breath even with minimal exertion. She does not wear oxygen at home. She denies fever, chills, chest pain, or any other URI symptoms. She does have a history of COPD, and has used her inhalers and nebulizers at home, however this has not helped her symptoms much. She states that she was having trouble with wheezing a couple of weeks ago, and was given a steroid burst to help with this. Her daughter states that she never seemed to fully recover, and is now wheezing again at home. Of note, she was recently seen in the emergency department for bilateral leg swelling. She was prescribed Lasix for this, however her daughter notes that her legs have looked more swollen, and that the left one has started to look more red, and that Ms. Arellano has been complaining of more pain over that area. She follows with Dr. Pulido for her lung cancer. Of note, she was a prior smoker. She quit 40 years ago, but did smoke a pack per day for 15 years. She denies use of alcohol or recreational drugs. She lives at home with her 91-year-old mother, who has dementia. She states that she has home health that comes in a couple of times a week to help her mother, but she states that she does not have help herself. Her daughter lives approximately 30 minutes away, and calls daily to make sure that she is okay. He also has a brother who checks in on her once in a while. Principal Diagnosis 35 Discharge Data Allergies Allergy/AdvReac Type Severity Reaction Status Date / Time hydrochlorothiazide AdvReac Intermediate DIZZY, Verified 08/13/18 17:38 "LOOPY" FEELING Consultations 08/13/18 19:38 ED Decision to Admit Stat 08/13/18 22:03 Consult Case Management - Discharge Planning Routine Consult Hematology Routine 08/15/18 17:06 Consult Pulmonology Routine 08/15/18 17:48 Consult Thoracic Surgery Routine Ordered Studies 08/15/18 16:30 CT chest w con Urgent Hospital Course (1) Neutropenic sepsis: (2) Cellulitis of left lower extremity: (3) Hyponatremia: (4) Dehydration: As above, appears to have improved (5) Pedal edema: (6) Cancer of right lung: (7) Depression: (8) Anxiety: (9) Hyperlipidemia: (10) Hypertension: (11) COPD (chronic obstructive pulmonary disease): (12) Anemia: (13) Discharge planning issues: 73-year-old white female with past medical history of right lung cancer, Anxiety dyslipidemia, COPD, hypertension,Admitted on August 13, 2018 because of neutropenic sepsis, has been stable /improving Neutropenic sepsis: resolved pneumonia, probably with some radiation pneumonitis Was O2 dependent, able to taper off oxygen History of COPD, Cellulitis of left lower extremity: Resolved Has been on antibiotics including Vanco and cefepime, , Culture from August 13, 2018 has been no growth Change antibiotic to oral Levaquin renal dose, will continue to finish a total 10 days,need 1 day more upon discharge cont nebulizer treatment scheduled and every 2 hours as needed for wheezing, Discontinue Solu-Medrol, start oral prednisone 40 mg p.o. daily, will need a few days more Hyponatremia: Follow sodium level which was resolved Hypokalemia replaced Cancer of right lung: stable Anemia: stable Depression, Anxiety: Continue current medical Tolerated hypertension and elevated heart rate, increased Cardizem CD to 180 p.o. daily , added additional dose of Cardizem 60 mg p.o. We will discharge on Cardizem CD to 180 mg po daily Hyperlipidemia: Continue current medication Hyperglycemia which is because of steroid such as Solu-Medrol, hopefully improving after switch to oral prednisone, resume home dose of insulin GI DVT px covered pt needs to have duo neb treatment as schedule and as need when wheezing Subjective at discharge Complaint about oral pain, which is better Magic mouthwash Continue doing well, able to taper off oxygen, has been continue physical therapy Patient feeling more strength Denies fever and chills Denies dysuria urgency or frequency Denies chest pain palpitation, denies nausea vomiting abdominal pain diarrhea constipation Physical Exam at discharge CONSTITUTIONAL: in bed, comfortable, EYES: PERRL, conjunctivae normal, anicteric sclerae ENMT: external ear and nose normal, oropharynx normal mucous membranes dry RESPIRATORY: Bilateral air entry with decreased breath sounds also coarse breathing, no wheezing CARDIOVASCULAR: Rate/Rhythm: regular rhythm , trace edema bilaterally GASTROINTESTINAL (Abdomen): Palpation: abdomen soft; abdomen nontender, no guarding and abdomen not rigid SKIN: No rash no lesion. Her cellulitis has also improved. PSYCHIATRIC: A+Ox3, euthymic affect NEUROLOGIC: The patient is alert awake and oriented x3. Nonfocal exam. She is moving all extremities. EXTREMITIES: Trace edema to lower extremities. Lab data at discharge: Laboratory Results - last 24 hr 08/21/18 08/22/18 08/22/18 20:12 06:09 07:39 Sodium 135 L Potassium 3.5 Chloride 95 L Carbon Dioxide 33 H Anion Gap 7.0 BUN 30 H Creatinine 1.00 Est Cr Clr Drug Dosing 48.5 Est GFR ( Amer) 64.7 Est GFR (Non-Af Amer) 55.8 BUN/Creatinine Ratio 30.1 H Glucose 122 H POC Glucose 144 H 133 H Calcium 8.9 Phosphorus 2.2 L Magnesium 1.8 Total Time Total Time Spent Total Time Spent (In Minutes): 35 Total Time Includes: Examination of the Patient, Discharge Planning, Medication Reconciliation and Communication With Other Providers Discharge Plan Discharge Items Patient Disposition: Transfer Shelter Fac Reason For Visit: NEUTROPENIC FEVER Discharge Diagnosis: neutropenic sepsis: Improved, resolved pneumonia Condition: Fair Discharge Goals: Decrease discomfort and Diagnostic testing Activity: Resume your previous activity Non-emergency contact: Primary Care Provider Call non-emergency contact if: you have any medication questions Follow-up/Referrals: Ari Renee DO [Primary Care Provider] - Diet: Heart Healthy Addtl Provider Instructions: you have Neutropenic sepsis: Improved, resolved you have pneumonia need Levaquin 1 day more to total 10 days full course will continue oral prednisone 40 mg p.o. daily for 5 days more your Cardizem CD has increaed to 180 p.o. daily you need to have duo neb treatment as schedule and as need when wheezing you need to follow up with your primary care physician in 1 week, - take medication as instructed, never overdose or any misuse, or take with alcohol, because misuse of medicine may cause organ damage or , call me, or your primary care physician if have questions of discharge medicaitons. - call your primary care physician, or go to local emergency room if has any fever/chill, chest pain, shortness of breathing, nausea/vomiting/abdominal pain, facial droop/slurry speech/local weakness, or if has any questions. - fall precaution - diet as instructed - you need to follow up with your subspecialist, such as Dr. Pulido Prescriptions: New furosemide 40 mg Tablet 40 mg PO DAILY 30 Days Qty: 30 RF: 0 ipratropium-albuterol 0.5 mg-3 mg(2.5 mg base)/3 mL Solution For Nebulization 3 ml NEB Q2H PRN (Reason: sob, wheezing) 30 Days Qty: 100 RF: 0 prednisone 20 mg Tablet 40 mg PO DAILY 5 Days Qty: 10 RF: 0 alprazolam 0.25 mg Tablet 0.25 mg PO BID PRN (Reason: anxiety) 6 Days Qty: 6 RF: 0 magnesium oxide 400 mg (241.3 mg magnesium) Tablet 400 mg PO BID 7 Days Qty: 14 RF: 0 losartan 25 mg Tablet 75 mg PO QAM 30 Days Qty: 90 RF: 0 levofloxacin 750 mg Tablet 750 mg PO Q24H 1 Days Qty: 1 RF: 0 diltiazem HCl [Cardizem CD] 180 mg capsule,extended release 24hr 180 mg PO DAILY 30 Days Qty: 30 RF: 0 Continued sucralfate [Carafate] 100 mg/mL suspension 5 ml PO QID Qty: 420 RF: 2 tramadol 50 mg tablet 50 mg PO Q8H PRN (Reason: pain) Qty: 30 RF: 0 multivitamin Tablet 1 tab PO QAM RF: 0 atorvastatin 20 mg Tablet 20 mg PO QPM RF: 0 ipratropium-albuterol 0.5 mg-3 mg(2.5 mg base)/3 mL Solution For Nebulization 3 ml INHALATION QID RF: 0 aspirin 81 mg Tablet,Delayed Release (Dr/Ec) 81 mg PO QAM RF: 0 alprazolam 0.25 mg Tablet 0.25 mg PO BID PRN (Reason: Anxiety) RF: 0 paroxetine HCl 20 mg Tablet 20 mg PO QAM RF: 0 lansoprazole [Prevacid] 15 mg Capsule,Delayed Release(Dr/Ec) 15 mg PO BID RF: 0 hydrocodone-homatropine [Hydromet] 5-1.5 mg/5 mL Syrup 5 ml PO Q4H PRN (Reason: Cough) RF: 0 albuterol sulfate [Proventil HFA] 90 mcg/actuation Hfa Aerosol Inhaler 2 puff INHALATION Q6H PRN (Reason: Shortness Of Breath) RF: 0 Symbicort 160-4.5 mcg/actuation Hfa Aerosol Inhaler 1 puff INHALATION BID RF: 0 Discontinued furosemide [Lasix] 20 mg tablet 20 mg PO DAILY Qty: 3 RF: 0 losartan 50 mg Tablet 50 mg PO QAM RF: 0 diltiazem HCl 120 mg Capsule,Extended Release 24 Hr 120 mg PO QAM RF: 0 Stand-Alone Forms: [facility] Discharge Orders: Discharge Order (Routine); Ordered 08/22/18 Ordered By: Clarence Muse Skilled Items Patient informed of condition?: Yes DNR: Yes Discharge Level of Care: Skilled Communicable Disease: No Discharge Prognosis: Stable Admission Data Admit Date/Time: 08/13/18 20:45 Attending Provider: Clarence Muse Admit Provider: Char Hawkins Primary Care Provider: Ari Renee Other Providers: Madhu Keen ; John Pulido V ; Timothy Esteves ; Elfego Torres ; Cricket Larson Service: Oncology Other Interventions: Discharge Summary Assessment (RN) Last Done: 08/22/18 10:26 DC Date/Time DO NOT enter until pt leaves facility: 08/22/18 11:13
[2018-08-23 17:35] LABS: Aspergillus Ag Index 0.05 (<0.50); Aspergillus Antigen, Serum Not Detected (Not Detected); Aspergillus Flavus Negative (Negative); Aspergillus Niger Negative (Negative)
== END 2018-08-22 11:13 | DRG 871 ==
LOC: ED 17:05 → 4E 20:45 → SUATTDRO 20:45 → 4E 21:23
DX: D61.810 Antineoplastic chemotherapy induced pancytopenia; E87.6 Hypokalemia; I10 Essential (primary) hypertension; E87.1 Hypo-osmolality and hyponatremia; K12.1 Other forms of stomatitis; Z88.8 Allergy status to other drugs, medicaments and biological substances; F41.8 Other specified anxiety disorders; J44.9 Chronic obstructive pulmonary disease, unspecified; Z66 Do not resuscitate; J70.0 Acute pulmonary manifestations due to radiation; E78.5 Hyperlipidemia, unspecified; Z82.49 Family history of ischemic heart disease and other diseases of the circulatory system; A41.9 Sepsis, unspecified organism; K21.9 Gastro-esophageal reflux disease without esophagitis; C34.91 Malignant neoplasm of unspecified part of right bronchus or lung; Z96.612 Presence of left artificial shoulder joint; Z92.3 Personal history of irradiation; E86.0 Dehydration; J98.11 Atelectasis; L03.116 Cellulitis of left lower limb; Z87.891 Personal history of nicotine dependence

== ENCOUNTER 2018-09-05 11:13 | Inpatient (IN) ==
--- NOTE | 2018-09-05 11:52 | Emergency Department Note ---
History of Present Illness General Chief Complaint: Illness Stated Complaint: weakness/confusion Source: patient and family Mode of arrival: EMS Limitations: no limitations History of Present Illness Provider complaint: weakness Onset (ago): hour(s) Maximum Temperature: 100.3 C Associated symptoms: no rigors, no chest pain, no shortness of breath and no abdominal pain Relieved By: + acetaminophen Treatments prior to arrival fever: + acetaminophen This is a 73-year-old female presents with generalized weakness starting this morning. The patient was previously admitted for sepsis due to left leg cellulitis and neutropenia. She was doing well up until this morning. She had a temperature over 100 and was feeling very weak. She was noted to stumble backwards by the nurse but did not fall to the ground. She denies any pain. She has no headache, chest pain, abdominal pain. She denies shortness of breath. She denies any leg pain although her daughter states that both of her legs are swelling. She does state that she did receive blood thinners while in the hospital. She is not currently on blood thinners. She has no history of PE or DVT. Her daughter notes that she was noted to have a mass in a collapsed lung on the right side on her previous admission. She did not receive a chest tube. Home Medications Home Medications Medication Instructions Recorded Confirmed Type Symbicort 1 puff INHALATION BID 03/27/18 09/05/18 History albuterol sulfate [Proventil HFA] 2 puff INHALATION Q6H PRN 03/27/18 09/05/18 History alprazolam 0.25 mg PO BID PRN 03/27/18 09/05/18 History aspirin 81 mg PO QAM 03/27/18 09/05/18 History atorvastatin 20 mg PO QPM 03/27/18 09/05/18 History hydrocodone-homatropine [Hydromet] 5 ml PO Q4H PRN 03/27/18 09/05/18 History ipratropium-albuterol 3 ml INHALATION QID 03/27/18 09/05/18 History lansoprazole [Prevacid] 15 mg PO BID 03/27/18 09/05/18 History multivitamin 1 tab PO QAM 03/27/18 09/05/18 History paroxetine HCl 20 mg PO QAM 03/27/18 09/05/18 History sucralfate 100 mg/mL oral 5 ml PO QID #420 ml 06/19/18 09/05/18 Rx suspension tramadol 50 mg tablet 50 mg PO Q8H PRN #30 tab 07/21/18 09/05/18 Rx diltiazem HCl [Cardizem CD] 180 mg PO DAILY 30 Days #30 cap 08/22/18 09/05/18 Rx furosemide 40 mg PO DAILY 30 Days #30 tab 08/22/18 09/05/18 Rx losartan 75 mg PO QAM 30 Days #90 tab 08/22/18 09/05/18 Rx Allergies Allergy/AdvReac Type Severity Reaction Status Date / Time hydrochlorothiazide AdvReac Intermediate DIZZY, Verified 09/05/18 11:56 "LOOPY" FEELING Past Med/Surg History Medical History Sarcopenia Acute respiratory failure with hypoxia Encephalopathy Pneumonia Neutropenic sepsis Hyponatremia (Acute) Cellulitis of left lower extremity (Acute) Cancer of right lung (Acute) 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 Radiation completed June 25, 2018. She received 6000 cGy. Difficult intubation LEFT FOOT RECONSTRUCTION= 12/28/16= GLIDESCOPE# 3 ETT 7.0 AT [facility] Hypertension (Chronic) Asthma (Chronic) COPD (chronic obstructive pulmonary disease) (Chronic) Hyperlipidemia (Chronic) Anxiety (Chronic) Depression (Chronic) Anemia (Chronic) Anxiety (Chronic) Asthma (Chronic) COPD (chronic obstructive pulmonary disease) (Chronic) Depression (Chronic) Dysphagia (Chronic) Hyperlipidemia (Chronic) Hypertension (Chronic) Irritable bowel disease (Chronic) Mediastinal lymphadenopathy (Chronic) Obesity (Chronic) Lung nodules Surgical History S/P appendectomy (Chronic) S/P hysterectomy (Chronic) H/O: hysterectomy (Acute) History of appendectomy (Resolved) as teenager History of bronchoscopy (Resolved) Multiple History of cataract surgery (Resolved) 2011 - Bilat History of colonoscopy (Resolved) 2016 Hx of abdominal hysterectomy (Resolved) 1972 Hx of foot surgery (Resolved) 2014 & 2017 - LEFT X2 Hx of repair of rotator cuff (Resolved) 2008 - RIGHT Hx of total shoulder replacement (Resolved) 2015 - LEFT Family History Mother Dementia Father , Passed age 67 of Lung Cancer (Heavy Smoker) Lung cancer Brother , Passed in 68 of Liver Cancer Liver cancer Brother , Passed in 60's of AR Heart attack Brother COPD (chronic obstructive pulmonary disease) Sister No problems noted. Son No problems noted. Son No problems noted. Son No problems noted. Son No problems noted. Daughter No problems noted. Social History Preferred Language: Brazilian Communication Ability: Effective Corporate Specialist Required: No Beliefs That Will Affect Care: None marital status: Current Living Situation: Family current occupational status: retired current occupation: Retired from [employer] Other Information That Helps Us Care for You: No Feels Safe at Home: Yes Safety Concerns: Feels Safe At This Time Smoking Status: Never smoker Hx Alcohol Use: No Hx Substance Use: No caffeine: Yes (1 pot of coffee/day ) Review of Systems See HPI for pertinent positives & negatives. and A total of 10 systems reviewed and were otherwise negative Physical Exam Vital Signs Vital Signs - 24 hr 09/05/18 11:21 09/05/18 11:28 09/05/18 12:26 Temperature 36.8 C Temperature Source Oral Sepsis Recent Fever Within 48 Hours Yes Sepsis New/Unexplained Change in Mental Status No Sepsis Action Taken by Nursing No Action Required Pulse Rate 82 Pulse Rate [Left Finger] 76 Respiratory Rate 16 23 Respiratory Effort / Characteristics Non-Labored Non-Labored Respiratory Depth Normal Normal Respiratory Pattern Regular Blood Pressure 97/53 L Blood Pressure [Left Arm] 110/63 Blood Pressure Mean 67 Blood Pressure Mean [Left Arm] 78 Blood Pressure Position [Left Arm] Pulse Oximetry 95 94 94 Oxygen Delivery Method Nasal Cannula Room Air Room Air Oxygen Flow Rate 2 2 09/05/18 12:57 09/05/18 14:00 09/05/18 15:00 Temperature Temperature Source Sepsis Recent Fever Within 48 Hours Sepsis New/Unexplained Change in Mental Status Sepsis Action Taken by Nursing Pulse Rate Pulse Rate [Left Finger] 93 H 93 H 78 Respiratory Rate 28 H 18 20 Respiratory Effort / Characteristics Non-Labored Non-Labored Respiratory Depth Normal Normal Respiratory Pattern Regular Regular Blood Pressure Blood Pressure [Left Arm] 114/66 115/62 104/65 Blood Pressure Mean Blood Pressure Mean [Left Arm] 82 79 78 Blood Pressure Position [Left Arm] Pulse Oximetry 97 98 96 Oxygen Delivery Method Nasal Cannula Nasal Cannula Nasal Cannula Oxygen Flow Rate 2 2 2 09/05/18 16:04 09/05/18 16:46 09/05/18 16:54 Temperature Temperature Source Sepsis Recent Fever Within 48 Hours Sepsis New/Unexplained Change in Mental Status Sepsis Action Taken by Nursing Pulse Rate Pulse Rate [Left Finger] 81 83 Respiratory Rate 18 21 Respiratory Effort / Characteristics Non-Labored Non-Labored Respiratory Depth Normal Normal Respiratory Pattern Regular Regular Blood Pressure Blood Pressure [Left Arm] 117/70 124/76 Blood Pressure Mean Blood Pressure Mean [Left Arm] 85 92 Blood Pressure Position [Left Arm] Pulse Oximetry 94 96 95 Oxygen Delivery Method Room Air Nasal Cannula Nasal Cannula Oxygen Flow Rate 2 2 09/05/18 17:49 Temperature 36.7 C Temperature Source Oral Sepsis Recent Fever Within 48 Hours Sepsis New/Unexplained Change in Mental Status Sepsis Action Taken by Nursing Pulse Rate Pulse Rate [Left Finger] 86 Respiratory Rate 18 Respiratory Effort / Characteristics Respiratory Depth Respiratory Pattern Blood Pressure Blood Pressure [Left Arm] 113/69 Blood Pressure Mean Blood Pressure Mean [Left Arm] 83 Blood Pressure Position [Left Arm] Lying Pulse Oximetry 91 Oxygen Delivery Method Room Air Oxygen Flow Rate Constitutional: Vital signs reviewed. Eyes: Pupils are equal round reactive to light. Conjunctiva are noninjected. ENT: Pharynx is clear without erythema or exudate. Mucous membranes are moist. Neck supple without meningeal signs. Respiratory: Clear to auscultation bilaterally except for some scattered expiratory wheezing. Breath sounds are equal bilaterally. O2 saturation is 89% on room air. Cardiovascular: Regular rate and rhythm. No rubs or gallops. GI: Soft, nondistended and nontender. Bowel sounds are present. Musculoskeletal: Bilateral lower extremity edema. No lower extremity tenderness. Integumentary: No cyanosis. or jaundice. Neurological: The patient is awake and alert. No focal deficits. Psychiatric: Normal affect. Not anxious appearing. Course Administered Medications Ioversol (Optiray 320 125ml) 119 ml IV ONCE PRN PRN Reason: Interaction Checking Stop: 09/09/18 13:30 Last Admin: 09/05/18 13:32 Dose: 119 ml Documented by: [id number] Discontinued Medications Piperacillin Sod/Tazobactam Sod (Zosyn) 4.5 gm in 120 mls @ 240 mls/hr IV NOW ONE Stop: 09/05/18 14:24 Last Infusion: 09/05/18 15:23 Dose: 0 mls/hr Documented by: [id number] Admin: 09/05/18 14:17 Dose: 240 mls/hr Documented by: [id number] Medical Decision Making Medical Records Attestation: I reviewed the patient's medical records. The patient was discharged from the hospital on August 22. She was admitted for neutropenic sepsis secondary to left leg cellulitis. She was also noted to be hyponatremic in the hospital. She was also O2 dependent while in the hospital. Home Medications Current Medication List: was personally reviewed by me Laboratory Data Attestation: I reviewed the patient's lab results. Result diagrams: 09/05/18 12:26 09/05/18 12:26 Lab Results 09/05/18 09/05/18 09/05/18 Range/Units 12:19 12:26 12:26 WBC 3.01 L (4.8-10.8) K/uL RBC 2.87 L (4.2-5.4) M/uL Hgb 9.3 L (12.0-16.0) g/dL POC Hgb (12.0-16.0) g/dl Hct 26.8 L (37-47) % POC Hct (37-47) % MCV 93.4 (80-100) fL MCH 32.4 (25-34) pg MCHC 34.7 (32-36) g/dL RDW Std Deviation 53.0 H (36.4-46.3) fL RDW Coeff of Filemon 15.4 H (11.5-14.5) % Plt Count 146 (130-400) K/uL MPV 8.3 (7.4-10.4) fL Immature Gran % (Auto) 2.0 % Neut % (Auto) 71.7 % Lymph % (Auto) 12.6 % [place] % (Auto) 12.0 % Eos % (Auto) 1.7 % Baso % (Auto) 0.0 % Immature Gran # (Auto) 0.06 H (0.00-0.02) K/uL Neut # (Auto) 2.16 (1.4-6.5) K/uL Lymph # (Auto) 0.38 L (1.2-3.4) K/uL Jennings # (Auto) 0.36 (0.11-0.59) K/uL Eos # (Auto) 0.05 (0-0.5) K/uL Baso # (Auto) 0.00 (0-0.2) K/uL PT 11.1 (9.0-12.0) Seconds INR 1.1 (0.9-1.1) APTT 29.1 (21.0-31.0) Seconds PTT Ratio 1.1 POC Sodium (135-144) mEq/L Sodium (136-145) mmol/L POC Potassium (3.3-5.0) mEq/L Potassium (3.5-5.1) mmol/L POC Chloride (101-112) mEq/L Chloride (98-107) mmol/L Carbon Dioxide (21-32) mmol/L POC Total CO2 (24-31) mEq/l Anion Gap (3-11) POC Anion Gap (16-25) mmol/L POC BUN (7-18) mg/dl BUN (7-18) mg/dl Creatinine (0.6-1.2) mg/dl POC Creatinine (0.6-1.3) mg/dl Est Cr Clr Drug Dosing ml/min Est GFR ( Amer) Est GFR (Non-Af Amer) BUN/Creatinine Ratio (10-20) Glucose (70-99) mg/dl POC Glucose (other) (70-99) mg/dl Lactate (0.4-2.0) mmol/L Calcium (8.5-10.1) mg/dl POC Ioniz Calcium Jose (1.12-1.32) mmol/l Total Bilirubin (0.2-1) mg/dl AST (15-37) U/L ALT (12-78) U/L Alkaline Phosphatase (45-117) U/L Total Protein (6.4-8.2) gm/dl Albumin (3.4-5.0) gm/dl Globulin (2.5-4.0) gm/dl Albumin/Globulin Ratio (0.9-2) Urine Color Urine Appearance (Clear) Urine pH (4.5-7.5) Ur Specific [place] (1.000-1.030) Urine Protein (Negative) Urine Glucose (UA) (Negative) Urine Ketones (Negative) Urine Blood (Negative) Urine Nitrite (Negative) Urine Bilirubin (Negative) Urine Urobilinogen (Negative) Ur Leukocyte Esterase (Negative) Influenza Type A Ag Neg for Influ A (Neg) Influenza Type B Ag Neg for Influ B (Neg) 09/05/18 09/05/18 09/05/18 Range/Units 12:26 12:37 12:41 WBC (4.8-10.8) K/uL RBC (4.2-5.4) M/uL Hgb (12.0-16.0) g/dL POC Hgb 8.2 L (12.0-16.0) g/dl Hct (37-47) % POC Hct 24 L (37-47) % MCV (80-100) fL MCH (25-34) pg MCHC (32-36) g/dL RDW Std Deviation (36.4-46.3) fL RDW Coeff of Filemon (11.5-14.5) % Plt Count (130-400) K/uL MPV (7.4-10.4) fL Immature Gran % (Auto) % Neut % (Auto) % Lymph % (Auto) % Jennings % (Auto) % Eos % (Auto) % Baso % (Auto) % Immature Gran # (Auto) (0.00-0.02) K/uL Neut # (Auto) (1.4-6.5) K/uL Lymph # (Auto) (1.2-3.4) K/uL Jennings # (Auto) (0.11-0.59) K/uL Eos # (Auto) (0-0.5) K/uL Baso # (Auto) (0-0.2) K/uL PT (9.0-12.0) Seconds INR (0.9-1.1) APTT (21.0-31.0) Seconds PTT Ratio POC Sodium 130 L (135-144) mEq/L Sodium 131 L (136-145) mmol/L POC Potassium 3.7 (3.3-5.0) mEq/L Potassium 3.8 (3.5-5.1) mmol/L POC Chloride 88 L (101-112) mEq/L Chloride 93 L (98-107) mmol/L Carbon Dioxide 35 H (21-32) mmol/L POC Total CO2 31 (24-31) mEq/l Anion Gap 3.0 (3-11) POC Anion Gap 16.0 (16-25) mmol/L POC BUN 9 (7-18) mg/dl BUN 10 (7-18) mg/dl Creatinine 1.01 (0.6-1.2) mg/dl POC Creatinine 1.0 (0.6-1.3) mg/dl Est Cr Clr Drug Dosing 43.7 ml/min Est GFR ( Amer) 64.0 Est GFR (Non-Af Amer) 55.2 BUN/Creatinine Ratio 10.0 (10-20) Glucose 116 H (70-99) mg/dl POC Glucose (other) 116 H (70-99) mg/dl Lactate 1.2 (0.4-2.0) mmol/L Calcium 8.7 (8.5-10.1) mg/dl POC Ioniz Calcium Jose 1.18 (1.12-1.32) mmol/l Total Bilirubin 0.5 (0.2-1) mg/dl AST 10 L (15-37) U/L ALT 16 (12-78) U/L Alkaline Phosphatase 104 (45-117) U/L Total Protein 6.0 L (6.4-8.2) gm/dl Albumin 2.6 L (3.4-5.0) gm/dl Globulin 3.4 (2.5-4.0) gm/dl Albumin/Globulin Ratio 0.8 L (0.9-2) Urine Color Urine Appearance (Clear) Urine pH (4.5-7.5) Ur Specific [place] (1.000-1.030) Urine Protein (Negative) Urine Glucose (UA) (Negative) Urine Ketones (Negative) Urine Blood (Negative) Urine Nitrite (Negative) Urine Bilirubin (Negative) Urine Urobilinogen (Negative) Ur Leukocyte Esterase (Negative) Influenza Type A Ag (Neg) Influenza Type B Ag (Neg) 09/05/18 Range/Units 13:05 WBC (4.8-10.8) K/uL RBC (4.2-5.4) M/uL Hgb (12.0-16.0) g/dL POC Hgb (12.0-16.0) g/dl Hct (37-47) % POC Hct (37-47) % MCV (80-100) fL MCH (25-34) pg MCHC (32-36) g/dL RDW Std Deviation (36.4-46.3) fL RDW Coeff of Filemon (11.5-14.5) % Plt Count (130-400) K/uL MPV (7.4-10.4) fL Immature Gran % (Auto) % Neut % (Auto) % Lymph % (Auto) % Jennings % (Auto) % Eos % (Auto) % Baso % (Auto) % Immature Gran # (Auto) (0.00-0.02) K/uL Neut # (Auto) (1.4-6.5) K/uL Lymph # (Auto) (1.2-3.4) K/uL Jennings # (Auto) (0.11-0.59) K/uL Eos # (Auto) (0-0.5) K/uL Baso # (Auto) (0-0.2) K/uL PT (9.0-12.0) Seconds INR (0.9-1.1) APTT (21.0-31.0) Seconds PTT Ratio POC Sodium (135-144) mEq/L Sodium (136-145) mmol/L POC Potassium (3.3-5.0) mEq/L Potassium (3.5-5.1) mmol/L POC Chloride (101-112) mEq/L Chloride (98-107) mmol/L Carbon Dioxide (21-32) mmol/L POC Total CO2 (24-31) mEq/l Anion Gap (3-11) POC Anion Gap (16-25) mmol/L POC BUN (7-18) mg/dl BUN (7-18) mg/dl Creatinine (0.6-1.2) mg/dl POC Creatinine (0.6-1.3) mg/dl Est Cr Clr Drug Dosing ml/min Est GFR ( Amer) Est GFR (Non-Af Amer) BUN/Creatinine Ratio (10-20) Glucose (70-99) mg/dl POC Glucose (other) (70-99) mg/dl Lactate (0.4-2.0) mmol/L Calcium (8.5-10.1) mg/dl POC Ioniz Calcium Jose (1.12-1.32) mmol/l Total Bilirubin (0.2-1) mg/dl AST (15-37) U/L ALT (12-78) U/L Alkaline Phosphatase (45-117) U/L Total Protein (6.4-8.2) gm/dl Albumin (3.4-5.0) gm/dl Globulin (2.5-4.0) gm/dl Albumin/Globulin Ratio (0.9-2) Urine Color Yellow Urine Appearance Clear (Clear) Urine pH 7.5 (4.5-7.5) Ur Specific [place] <= 1.005 (1.000-1.030) Urine Protein Negative (Negative) Urine Glucose (UA) Negative (Negative) Urine Ketones Negative (Negative) Urine Blood Negative (Negative) Urine Nitrite Negative (Negative) Urine Bilirubin Negative (Negative) Urine Urobilinogen Negative (Negative) Ur Leukocyte Esterase Negative (Negative) Influenza Type A Ag (Neg) Influenza Type B Ag (Neg) Imaging Data Attestation: I personally reviewed and interpreted this imaging study as follows: Radiologist's Impression: [facility], [place] [phone] CT Scan Report Patient: SUKUMAR HI Date: 09/05/18 MR#: [id number]: [id number] [address] [facility] Acct ID:[id number]: [address] [facility] Zip[facility] [place] [address] Age: 73Location: ED Sex: F Room/Bed: Att Phy: Diagnosis: weakness/confusion Angelica Phy: Ari Renee DOService Date: 09/05/18 Fam Phy: John Pulido D.O.Interpreting Phy: Juwan Murguia Admit Phy: Ordering Phy: Eliana Velez PA-C cc: ~ CT head/brain wo con CLINICAL HISTORY: 73 years-old Female with AMS. Acutely altered mental status TECHNIQUE: Multiple axial CT images of the head were obtained without contrast. A dose lowering technique was utilized adhering to the principles of ALARA. CT DOSE: 537.48 mGy.cm COMPARISON: CT head 11/12/2015. FINDINGS: No acute intracranial hemorrhage, midline shift, intracranial mass, hydrocephalus, territorial ischemia or abnormal extra-axial collection. Hyperdensity about the vascular structures is likely secondary to recent CTA of the chest obtained same day. Age-related involutional changes with mild ex vacuo ventriculomegaly. Moderate white matter hypodensities are suggestive of chronic microvascular ischemic changes. Cerebral vascular calcifications noted. The calvarium is intact. Prior bilateral lens replacement. The paranasal sinuses, mastoid air cells, and middle ear cavities are clear. IMPRESSION: No acute intracranial abnormality. [place], [place] [phone] CT Scan Report Patient: SUKUMAR HI Date: 09/05/18 MR#: [id number]: [id number] [address] Acct ID:[id number]: [address] [facility] Zip: [place] [address] Age: 73Location: ED Sex: F Room/Bed: Att Phy: Diagnosis: weakness/confusion Angelica Phy: Ari Renee DOService Date: 09/05/18 Fam Phy: John Pulido D.O.Interpreting Phy: Julio Eastman MD Admit Phy: Ordering Phy: Storm Anders MD cc: ~ CT ANGIOGRAM OF THE CHEST CLINICAL HISTORY: Hypoxia. Possible pulmonary embolism. COMPARISON STUDY: Chest CT dated 08/15/2018 TECHNIQUE: Following the IV administration of 119 mL of Optiray-320, CT angiogram of the thorax was performed from the thoracic inlet to the lung bases utilizing the pulmonary embolus protocol. Images are reviewed in the axial, sagittal, and coronal planes. IV contrast was administered without complication. MIP imaging was performed. A dose lowering technique was utilized adhering to the principles of ALARA. CT DOSE: 379.48 mGy.cm FINDINGS: The visualized portions the upper abdomen reveal cholelithiasis. No pathologically enlarged axillary mediastinal or hilar lymph nodes were visualized. There was no evidence of thoracic aortic dilatation. There were no pulmonary artery filling defects to indicate acute pulmonary embolism. There is a trace right pleural effusion There is narrowing of the right upper lobe bronchus. There are right upper lobe atelectatic changes with air bronchograms. There are multifocal nodular airspace opacities within the right lung, favoring an infectious/inflammatory etiology. There is mild bronchial wall thickening. There is diffuse esophageal wall thickening, likely secondary to radiation therapy or a diffuse infectious esophagitis. IMPRESSION: 1. No evidence of acute pulmonary embolism 2. Multifocal nodular right lung airspace opacities likely infectious/inflammatory 3. Narrowing of the right upper lobe bronchus with secondary right upper lobe atelectatic changes in her bronchograms 4. Diffuse esophageal wall thickening. XR chest 1V portable CLINICAL HISTORY: Sepsis dysphagia. Dyspnea. COMPARISON STUDY: 08/13/2018 FINDINGS: Unchanged right hilar fullness. Lungs are considered clear. Minimal basilar and peripheral right midlung platelike atelectasis. Degenerative change right shoulder. Left shoulder total arthroplasty. IMPRESSION: 1. No acute process. 2. Stable right hilar fullness compared to the prior exam. 3. Scattered platelike atelectasis ECG Data Attestation: I personally reviewed and interpreted this ECG as follows: Indication: SOB/dyspnea Rate (beats per minute): 80 Rhythm: normal sinus Findings: no PVC, no ST elevation and no acute ischemic change Blood Pressure Blood Pressure Findings: Elevated blood pressure Blood Pressure Disposition: further management by hospitalist [facility] Narrative I did evaluate the patient as noted above. Patient is presenting with generalized weakness. She is hypoxemic here. She has been coughing and had a low-grade fever. IV access was established. The patient was placed on a continuous monitor worker. I did order and personally review the patient's 12- lead EKG and chest x-ray as described above. Twelve-lead EKG does not demonstrate any acute ischemia. Her chest x-ray does not show pneumonia. I did order and review the patient's blood work as noted in the electronic medical record. Her white blood cell count is low. She has anemia. Her sodium is low as well. She is not neutropenic. I did order a CT of the head and chest. I did review the images myself as well as the radiology report as described above. There is no acute intracranial abnormality. No signs of pulmonary embolism. She does have a right-sided pneumonia. I did treat her with IV Zosyn. Urinalysis is unremarkable. Rapid flu testing is negative. I did discuss the test results with the patient and her family. I did discuss the case with the hospitalist and protective services case worker. Impression & Plan Pneumonia, Anemia, Hypoxia, Acute hyponatremia Discharge Plan Visit Data *Final* Discharge Date/Time: 09/05/18 16:54 Chief Complaint: Illness Stated Complaint: weakness/confusion ED Provider: Storm Anders Discharge Problem: Pneumonia, Anemia, Hypoxia, Acute hyponatremia Patient Disposition: Admitted As Inpatient Discharge Instructions Interventions: ED Discharge Assessment Last Done: 09/05/18 16:54 Discharge Problem: Pneumonia Qualifiers: Pneumonia type: due to unspecified organism Laterality: right Lung location: lower lobe of lung Qualified Code(s): J18.1 - Lobar pneumonia, unspecified organism Anemia Qualifiers: Anemia type: unspecified type Qualified Code(s): D64.9 - Anemia, unspecified
--- NOTE | 2018-09-05 12:30 | XRay Report ---
XR chest 1V portable CLINICAL HISTORY: Sepsis dysphagia. Dyspnea. COMPARISON STUDY: 08/13/2018 FINDINGS: Unchanged right hilar fullness. Lungs are considered clear. Minimal basilar and peripheral right midlung platelike atelectasis. Degenerative change right shoulder. Left shoulder total arthropl asty. IMPRESSION: 1. No acute process. 2. Stable right hilar fullness compared to the prior exam. 3. Scattered platelike atelectasis The above report was generated using voice recognition software. It may contain grammatical, syntax or spelling errors. Electronically signed by: Eugene Foreman M.D. 09/05/2018 12:28 PM
[2018-09-05 12:44] LABS: Eosinophils # (auto) 0.05 K/uL (0-0.5); Eosinophils % (auto) 1.7 %; Hematocrit (blood only) 26.8 % (37-47); Hemoglobin 9.3 g/dL (12.0-16.0); Immature Granulocytes # (auto) 0.06 K/uL (0.00-0.02); Lymphocytes # (auto) 0.38 K/uL (1.2-3.4); Lymphocytes % (auto) 12.6 %; Mean Corpuscular Hgb Conc 34.7 g/dL (32-36); Mean Corpuscular Volume 93.4 fL (80-100); Mean Platelet Volume 8.3 fL (7.4-10.4); Monocytes # (auto) 0.36 K/uL (0.11-0.59); Neutrophils # (auto) 2.16 K/uL (1.4-6.5); Neutrophils % (auto) 71.7 %; Platelet Count 146 K/uL (130-400); RDW Coefficient of Variation 15.4 % (11.5-14.5); Red Blood Count 2.87 M/uL (4.2-5.4); White Blood Count 3.01 K/uL (4.8-10.8)
[2018-09-05 12:54] LABS: iSTAT Hemoglobin 8.2 g/dl (12.0-16.0); iSTAT Ionized Calcium 1.18 mmol/l (1.12-1.32); iSTAT Potassium 3.7 mEq/L (3.3-5.0)
[2018-09-05 12:56] LABS: INR 1.1 (0.9-1.1); Partial Thromboplastin Ratio 1.1; Partial Thromboplastin Time 29.1 Seconds (21.0-31.0); Prothrombin Time 11.1 Seconds (9.0-12.0)
[2018-09-05 13:03] LABS: Albumin Level 2.6 gm/dl (3.4-5.0); Calcium 8.7 mg/dl (8.5-10.1); Creatinine Clr Calc Pharmacy 43.7 ml/min; Est GFR (Non-African American) 55.2; Potassium 3.8 mmol/L (3.5-5.1)
[2018-09-05 13:05] LABS: Albumin Globulin Ratio 0.8 (0.9-2); Bilirubin,Total 0.5 mg/dl (0.2-1); Globulin 3.4 gm/dl (2.5-4.0)
[2018-09-05 13:16] LABS: Appearance Urine Clear (Clear); Bilirubin Urine Negative (Negative); Blood Urine Negative (Negative); Color Urine Yellow; Glucose Urine UA Negative (Negative); Ketones Urine Negative (Negative); Leukocyte Esterase Urine Negative (Negative); Nitrite Urine Negative (Negative); Protein Urine Negative (Negative); Specific Gravity Urine <= 1.005 (1.000-1.030); Urobilinogen Urine Negative (Negative); pH Urine 7.5 (4.5-7.5)
[2018-09-05] MEDS ORDERED: OPTIRAY 320 125ml IV PRN (13:31)
--- NOTE | 2018-09-05 13:53 | CT Scan Report ---
CT ANGIOGRAM OF THE CHEST CLINICAL HISTORY: Hypoxia. Possible pulmonary embolism. COMPARISON STUDY: Chest CT dated 08/15/2018 TECHNIQUE: Following the IV administration of 119 mL of Optiray-320, CT angiogram of the thorax was p erformed from the thoracic inlet to the lung bases utilizing the pulmonary embolus protocol. Images a re reviewed in the axial, sagittal, and coronal planes. IV contrast was administered without complica tion. MIP imaging was performed. A dose lowering technique was utilized adhering to the principles o f ALARA. CT DOSE: 379.48 mGy.cm FINDINGS: The visualized portions the upper abdomen reveal cholelithiasis. No pathologically enlarged axillary mediastinal or hilar lymph nodes were visualized. There was no evidence of thoracic aortic dilatation. There were no pulmonary artery filling defects to indicate acute pulmonary embolism. There is a trace right pleural effusion There is narrowing of the right upper lobe bronchus. There are right upper lobe atelectatic changes w ith air bronchograms. There are multifocal nodular airspace opacities within the right lung, favoring an infectious/inflammatory etiology. There is mild bronchial wall thickening. There is diffuse esophageal wall thickening, likely secondary to radiation therapy or a diffuse infec tious esophagitis. IMPRESSION: 1. No evidence of acute pulmonary embolism 2. Multifocal nodular right lung airspace opacities likely infectious/inflammatory 3. Narrowing of the right upper lobe bronchus with secondary right upper lobe atelectatic changes in her bronchograms 4. Diffuse esophageal wall thickening. Electronically signed by: Julio Eastman M.D. 09/05/2018 1:51 PM
[2018-09-05] MEDS ORDERED: PIPERACILL/TAZOBAC CONSULT ACTIVE PRN ×2 (13:55→17:35)
[2018-09-05] MEDS ORDERED: PIPERACILLIN/TAZOBACTAM 4.5 GM/120 ML BAG IV ONE (13:55)
--- NOTE | 2018-09-05 14:39 | History & Physical Report ---
Date of Service September 05, 2018 Assessment & Plan (1) Acute respiratory failure with hypoxia: (2) Pneumonia: (3) Encephalopathy: - Admit to [facility] with tele - BCx obtained, follow, urine appears clear - Chest CTA reviewed and was negative - will ask oncology and pulmonology to assess due to R. lung cancer and needs for follow up of a R lung mass which was seen per patients family about 2 weeks ago. Pt was scheduled for outpt eval and imaging studies to evaluate. - Check CT head/brain w/o contrast to r/o stroke with pts family providing hx of difficulty with ADLs this morning, slurred speech, trouble ambulating with walker which was all new. CXR reviewed - O2 sats were 88% on arrival, have improved at this time to 96% on 2L. - Continue on zosyn IV for pulmonary source with recent pneumonia during last admission and possible recurrence - Flu swab negative - WBC decreased at 3.01, neutropenic, but is not pancytopenic. Other labs have slightly improved compared to previous discharge labs. - Continue neutropenic precautions with strict handwashing, masks, etc. - PT/OT evals (4) Hyponatremia: - Mild hyponatremia with Na+ - 130 - Was present during last admission only 2 weeks ago. Possibly related to acute illness and chronic lung pathology - Poor oral intake likely contributing as well. Encourage po intake. - If not improving consider SIADH and r/o. (5) Cancer of right lung: - Follows with Dr. Pulido as outpatient, oncology consulted - Imaging of the chest, chemotherapy per oncology. - Most recent chemo was Aug 05 and was a reduced dose. Finished radiation therapy about 1 mo ago. Nu has some residual radiation pneumonitis. - Continue using magic swizzle to aid in swallowing as pt notes burning sensation in her throat. Continue soft diet. (6) COPD (chronic obstructive pulmonary disease): - Hx of such, stable, no acute exacerbation (7) Asthma: - Chronic, stable, no acute exacerbation - Continue symbicort and proventil (8) Hypertension: - Continue asa 81 mg, diltiazem 180 mg daily, lasix 40 mg daily for lower extremity swelling, losartan 75 mg daily, - HH diet - No fluids for now unless any changes in septic presentation with increased bilateral edema. (9) Hyperlipidemia: (10) Anxiety: (11) Depression: - Stable, continue paxil 20 mg QAM - holding alprazolam with hypoxia on presentation. 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 (12) Sarcopenia: - Albumin decreased - Order protein supplementation for snacks between meals and HS. - If pt not able to drink this much then at least give at bedtime. (13) Chronic pain: - Continue tramdol 50 mg Q6H prn, has been using q6h scheduled as outpatient. - Continue hydromet 5 ml Po Q4H po prn - per family has been on these for many months - if worsening status then can hold to r/o polypharmacy. (14) HLD (hyperlipidemia): - Continue statin therapy with atorvastatin 20 mg QPM (15) DVT prophylaxis: teds, scds, lovenox subq History of Present Illness Primary Care Provider: Ari Renee DO This is a 73 yo F with PMHx of right lung cancer originally diagnosed in 2012, s/p chemotherapy and radiation therapy. Most recent chemotherapy was Aug 05 where she completed the second round of paclitaxel, this most recent chemo was a reduced dose. Other PMHx includes COPD, remote smoking hx 40 yrs ago with 1 ppd x 15 yrs, HTN, HLD< anxiety, depression. Pt was recently admitted from 08/13- 08/22 at our facility due to neutropenic sepsis secondary to cellulitis and radiation pneumonitis. She was treated with a IV antibiotics including vancomycin and cefepime, then transitioned to oral levaquin to total a 10 day course. She was also treated with steroids and supportive care and cellulitis resolved. Today the patient presents with new onset of slight altered mental status, unsteady gait, change in behavior per family, and increased weakness during ambulation with a walker. Pt is very nonspecific with her ROS. Daughter is present at bedside and reports 3 weeks ago the patient was living at home taking care of her own 90+ yo mother who has dementia. She was brought here from [place], where she was completing outpatient therapy. She was scheduled for her discharge evaluation this week however didn't get to that point due to todays new events. Pt was reported to have a 100.4 temperature as an outpatient but was sitting beside a heater. Pt denies fever, chills or sweats. Allergies Allergy/AdvReac Type Severity Reaction Status Date / Time hydrochlorothiazide AdvReac Intermediate DIZZY, Verified 09/05/18 11:56 "LOOPY" FEELING Home Medications Home Medications Medication Instructions Recorded Confirmed Type Symbicort 1 puff INHALATION BID 03/27/18 09/05/18 History albuterol sulfate [Proventil HFA] 2 puff INHALATION Q6H PRN 03/27/18 09/05/18 History alprazolam 0.25 mg PO BID PRN 03/27/18 09/05/18 History aspirin 81 mg PO QAM 03/27/18 09/05/18 History atorvastatin 20 mg PO QPM 03/27/18 09/05/18 History hydrocodone-homatropine [Hydromet] 5 ml PO Q4H PRN 03/27/18 09/05/18 History ipratropium-albuterol 3 ml INHALATION QID 03/27/18 09/05/18 History lansoprazole [Prevacid] 15 mg PO BID 03/27/18 09/05/18 History multivitamin 1 tab PO QAM 03/27/18 09/05/18 History paroxetine HCl 20 mg PO QAM 03/27/18 09/05/18 History sucralfate 100 mg/mL oral 5 ml PO QID #420 ml 06/19/18 09/05/18 Rx suspension tramadol 50 mg tablet 50 mg PO Q8H PRN #30 tab 07/21/18 09/05/18 Rx diltiazem HCl [Cardizem CD] 180 mg PO DAILY 30 Days #30 cap 08/22/18 09/05/18 Rx furosemide 40 mg PO DAILY 30 Days #30 tab 08/22/18 09/05/18 Rx losartan 75 mg PO QAM 30 Days #90 tab 08/22/18 09/05/18 Rx Past Med/Surg History Medical History Sarcopenia Acute respiratory failure with hypoxia Encephalopathy Pneumonia Neutropenic sepsis Hyponatremia (Acute) Cellulitis of left lower extremity (Acute) Cancer of right lung (Acute) 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 Radiation completed June 25, 2018. She received 6000 cGy. Difficult intubation LEFT FOOT RECONSTRUCTION= 12/28/16= GLIDESCOPE# 3 ETT 7.0 AT [facility] Hypertension (Chronic) Asthma (Chronic) COPD (chronic obstructive pulmonary disease) (Chronic) Hyperlipidemia (Chronic) Anxiety (Chronic) Depression (Chronic) Anemia (Chronic) Anxiety (Chronic) Asthma (Chronic) COPD (chronic obstructive pulmonary disease) (Chronic) Depression (Chronic) Dysphagia (Chronic) Hyperlipidemia (Chronic) Hypertension (Chronic) Irritable bowel disease (Chronic) Mediastinal lymphadenopathy (Chronic) Obesity (Chronic) Lung nodules Surgical History S/P appendectomy (Chronic) S/P hysterectomy (Chronic) H/O: hysterectomy (Acute) History of appendectomy (Resolved) as teenager History of bronchoscopy (Resolved) Multiple History of cataract surgery (Resolved) 2011 - Bilat History of colonoscopy (Resolved) 2017 Hx of abdominal hysterectomy (Resolved) 1972 Hx of foot surgery (Resolved) 2014 & 2017 - LEFT X2 Hx of repair of rotator cuff (Resolved) 2009 - RIGHT Hx of total shoulder replacement (Resolved) 2015 - LEFT Family History Mother Dementia Father , Passed age 67 of Lung Cancer (Heavy Smoker) Lung cancer Brother , Passed in 68 of Liver Cancer Liver cancer Brother , Passed in 60's of [place] Heart attack Brother COPD (chronic obstructive pulmonary disease) Sister No problems noted. Son No problems noted. Son No problems noted. Son No problems noted. Son No problems noted. Daughter No problems noted. Social History Preferred Language: Mongolian Communication Ability: Effective Reel Man Required: No Beliefs That Will Affect Care: None marital status: Current Living Situation: Family current occupational status: retired current occupation: Retired from [employer] Other Information That Helps Us Care for You: No Feels Safe at Home: Yes Safety Concerns: Feels Safe At This Time Smoking Status: Never smoker Hx Alcohol Use: No Hx Substance Use: No caffeine: Yes (1 pot of coffee/day ) Review of Systems Constitutional: No fever, sweats or chills Eyes: No diplopia, no worsening or blurred vision ENT: normal hearing, no trouble swallowing Respiratory: + dry cough, no sputum, no dyspnea at rest, mild dyspnea on exertion Cardiovascular: No chest pain, tightness or palpitations Abdomen: No pain, nausea, vomiting, diarrhea or constipation Musculoskeletal: No joint pain, calf pain, + calf swelling but no reddness, previous cellulitis is resolved per family. Neurologic: No weakness, numbness/tingling, or balance problems Psychiatric: No anxiety or depression Skin: No rash or itch Physical Exam Vital Signs (Past 24 Hours): Last Vital Signs Temp 36.8 C 09/05/18 11:28 Pulse 93 H 09/05/18 14:00 Resp 18 09/05/18 14:00 BP 115/62 09/05/18 14:00 Pulse Ox 98 09/05/18 14:00 Physical Exam: General: awake, alert, no apparent distress, able to answer all questions appropriately although some responses are slow. Head: Normocephalic, atraumatic ENT: PERRL, EOMI, no pharyngeal exudate, no mucositis, mucous membranes moist Chest: + Diminished breath sounds throughout, on 2L via NC, no adventitious breath sounds Cardiac: Regular rate and rhythm, no murmur, no JVD, normal peripheral pulses, good capillary refill Abdominal: NABS x 4 quadrants, soft, nontender to palpation, no rebound, guarding or tenderness Extremities: Normal inspection, 2+ bilateral peripheral edema with minimal mild erythema on the LLE, calfs nontender to palpation Psych: Normal mood and affect Neuro: AAO x 3, strength intact bilaterally and related 5/5, no motor deficits, speech is clear but slightly slowed, no peripheral sensory deficits Results & Data Diagnostic Findings XR chest 1V portable CLINICAL HISTORY: Sepsis dysphagia. Dyspnea. COMPARISON STUDY: 08/13/2018 FINDINGS: Unchanged right hilar fullness. Lungs are considered clear. Minimal basilar and peripheral right midlung platelike atelectasis. Degenerative change right shoulder. Left shoulder total arthroplasty. IMPRESSION: 1. No acute process. 2. Stable right hilar fullness compared to the prior exam. 3. Scattered platelike atelectasis CT ANGIOGRAM OF THE CHEST CLINICAL HISTORY: Hypoxia. Possible pulmonary embolism. COMPARISON STUDY: Chest CT dated 08/15/2018 TECHNIQUE: Following the IV administration of 119 mL of Optiray-320, CT angiogram of the thorax was performed from the thoracic inlet to the lung bases utilizing the pulmonary embolus protocol. Images are reviewed in the axial, sagittal, and coronal planes. IV contrast was administered without complication. MIP imaging was performed. A dose lowering technique was utilized adhering to the principles of ALARA. CT DOSE: 379.48 mGy.cm FINDINGS: The visualized portions the upper abdomen reveal cholelithiasis. No pathologically enlarged axillary mediastinal or hilar lymph nodes were visualized. There was no evidence of thoracic aortic dilatation. There were no pulmonary artery filling defects to indicate acute pulmonary embolism. There is a trace right pleural effusion There is narrowing of the right upper lobe bronchus. There are right upper lobe atelectatic changes with air bronchograms. There are multifocal nodular airspace opacities within the right lung, favoring an infectious/inflammatory etiology. There is mild bronchial wall thickening. There is diffuse esophageal wall thickening, likely secondary to radiation therapy or a diffuse infectious esophagitis. IMPRESSION: 1. No evidence of acute pulmonary embolism 2. Multifocal nodular right lung airspace opacities likely infectious/inflammatory 3. Narrowing of the right upper lobe bronchus with secondary right upper lobe atelectatic changes in her bronchograms 4. Diffuse esophageal wall thickening. ECG Additional Comments: 05-SEP-2018 11:21:56 [facility] Normal sinus rhythm Normal ECG When compared with ECG of 13-AUG-2018 17:26, Premature atrial complexes are no longer Present Vent. rate has decreased BY 50 BPM 25mm/s 10mm/mV 150Hz 8.0 SP2 12SL 241 JOSESITO: 13 Referred by: Alessio Orellana Unconfirmed Vent. rate [address] interval 198 ms QRS duration 82 ms QT/QTc 364/419 ms P-R-T axes 60 4 52 Code Status & VTE Plan Code Status DNR Supervising Physician Co-Signing Physician Notes Patient seen and examined, chart reviewed, case discussed with SURESH Velez and I agree with her assessment and plan as documented above. briefly, patient is a 73yo female with history or right lung CA s/p chemo and XRT, recently admitted for cellulitis and sepsis with discharge to rehab. She states she has been unable to participate in rehab, feeling week and legs go out. Family also concerned about her cotgnitive status, state she is more confused than usual On exam she is afebrile, HD stable, no respiratory distress, 97% on room air Gen: appropriately answers questions, speech slow Skin: cellulitis improved HEENT: dry MM Heart: +S1/S2, regular, no m/r/g Lungs: +crackles right lung Abd: +BS, soft, NT/ND Ext: no edema Neuro: grossly nonfocal Labs and images reviewed Assessment/Plan: -IV abx and fluid as above -Optimize electrolytes -Remainder of plan as above
--- NOTE | 2018-09-05 16:22 | CT Scan Report ---
CT head/brain wo con CLINICAL HISTORY: 73 years-old Female with AMS. Acutely altered mental status TECHNIQUE: Multiple axial CT images of the head were obtained without contrast. A dose lowering tech nique was utilized adhering to the principles of ALARA. CT DOSE: 537.48 mGy.cm COMPARISON: CT head 11/12/2015. FINDINGS: No acute intracranial hemorrhage, midline shift, intracranial mass, hydrocephalus, territorial ischem ia or abnormal extra-axial collection. Hyperdensity about the vascular structures is likely secondary to recent CTA of the chest obtained same day. Age-related involutional changes with mild ex vacuo ve ntriculomegaly. Moderate white matter hypodensities are suggestive of chronic microvascular ischemic changes. Cerebral vascular calcifications noted. The calvarium is intact. Prior bilateral lens replacement. The paranasal sinuses, mastoid air cells, and middle ear cavities are clear. IMPRESSION: No acute intracranial abnormality. The above report was generated using voice recognition software. It may contain grammatical, syntax o r spelling errors. Electronically signed by: Puneet Murguia M.D. 09/05/2018 4:21 PM
[2018-09-05] MEDS ORDERED: ALUMINUM/MAGNESIUM SUSP 50 ML, DiphenhydrAMINE Syrup 125 MG, LIDOCAINE HCL 2% VISCOUS 4... PO SCH (17:35)
[2018-09-05] MEDS ORDERED: ACETAMINOPHEN 325 MG TAB PO PRN (17:35)
[2018-09-05] MEDS ORDERED: ALBUTEROL HFA 8 GM INHALER INH PRN (17:35)
[2018-09-05] MEDS ORDERED: HYDROCODONE/HOMATROPINE SYRUP 5MG/1.5MG 5ML UDP PO PRN (17:35)
[2018-09-05] MEDS: ALBUT/IPRATROP 3MG/0.5MG NEB 3 ML VIAL INH SCH (20:31)
[2018-09-05] MEDS: ENOXAPARIN INJ 40 MG/0.4 ML SYR SQ SCH (20:49)
[2018-09-05] MEDS: PANTOprazole 40 MG TAB PO SCH (20:49)
[2018-09-05] MEDS: ATORVASTATIN 20 MG TAB PO SCH (20:49)
[2018-09-05] MEDS: BUDESONIDE/FORMOTEROL FUMARATE 160/4.5 60 PUFFS/INHALER INH SCH (20:50)
[2018-09-05] MEDS: PIPERACILLIN/TAZOBACTAM 3.375 GM in DEXTROSE 5% 100 ML IV SCH (20:52)
[2018-09-05] MEDS ORDERED: ALUMINUM/MAGNESIUM SUSP 50 ML, DiphenhydrAMINE Syrup 125 MG, LIDOCAINE HCL 2% VISCOUS 4... PO PRN (21:04)
--- NOTE | 2018-09-05 21:51 | Emergency Department Note ---
Entered by Karla Huff acting as a scribe for Storm Anders MD History of Present Illness General Chief complaint: Illness Stated complaint: weakness/confusion Home Medications Home Medications Medication Instructions Recorded Confirmed Type Symbicort 1 puff INHALATION BID 03/27/18 08/13/18 History albuterol sulfate [Proventil HFA] 2 puff INHALATION Q6H PRN 03/27/18 08/13/18 History alprazolam 0.25 mg PO BID PRN 03/27/18 08/13/18 History aspirin 81 mg PO QAM 03/27/18 08/13/18 History atorvastatin 20 mg PO QPM 03/27/18 08/13/18 History hydrocodone-homatropine [Hydromet] 5 ml PO Q4H PRN 03/27/18 08/13/18 History ipratropium-albuterol 3 ml INHALATION QID 03/27/18 08/13/18 History lansoprazole [Prevacid] 15 mg PO BID 03/27/18 08/13/18 History multivitamin 1 tab PO QAM 03/27/18 08/13/18 History paroxetine HCl 20 mg PO QAM 03/27/18 08/13/18 History sucralfate 100 mg/mL oral 5 ml PO QID #420 ml 06/19/18 08/13/18 Rx suspension tramadol 50 mg tablet 50 mg PO Q8H PRN #30 tab 07/21/18 08/13/18 Rx diltiazem HCl [Cardizem CD] 180 mg PO DAILY 30 Days #30 cap 08/22/18 Rx furosemide 40 mg PO DAILY 30 Days #30 tab 08/22/18 Rx ipratropium-albuterol 3 ml NEB Q2H PRN 30 Days #100 ml 08/22/18 Rx losartan 75 mg PO QAM 30 Days #90 tab 08/22/18 Rx Allergies Allergy/AdvReac Type Severity Reaction Status Date / Time hydrochlorothiazide AdvReac Intermediate DIZZY, Verified 08/13/18 17:38 "LOOPY" FEELING Past Med/Surg History Social History Preferred Language: Montenegrin Beliefs That Will Affect Care: None marital status: Current Living Situation: Family current occupational status: retired current occupation: Retired from [employer] Feels Safe at Home: Yes Smoking Status: Never smoker Hx Alcohol Use: No Hx Substance Use: No caffeine: Yes (1 pot of coffee/day ) Physical Exam Vital Signs Vital Signs - 24 hr 09/05/18 11:21 09/05/18 11:28 Temperature 98.2 F Temperature Source Oral Sepsis Recent Fever Within 48 Hours Yes Sepsis New/Unexplained Change in Mental Status No Sepsis Action Taken by Nursing No Action Required Pulse Rate 82 Respiratory Rate 16 Respiratory Effort / Characteristics Non-Labored Respiratory Depth Normal Blood Pressure 97/53 L Blood Pressure Mean 67 Pulse Oximetry 95 94 Oxygen Delivery Method Nasal Cannula Room Air Oxygen Flow Rate 2 Discharge Plan Visit Data Chief Complaint: Illness Stated Complaint: weakness/confusion ED Provider: Storm Anders Prescriptions Prescriptions: No Action sucralfate [Carafate] 100 mg/mL suspension 5 ml PO QID Qty: 420 RF: 2 tramadol 50 mg tablet 50 mg PO Q8H PRN (Reason: pain) Qty: 30 RF: 0 multivitamin Tablet 1 tab PO QAM RF: 0 atorvastatin 20 mg Tablet 20 mg PO QPM RF: 0 ipratropium-albuterol 0.5 mg-3 mg(2.5 mg base)/3 mL Solution For Nebulization 3 ml INHALATION QID RF: 0 aspirin 81 mg Tablet,Delayed Release (Dr/Ec) 81 mg PO QAM RF: 0 alprazolam 0.25 mg Tablet 0.25 mg PO BID PRN (Reason: Anxiety) RF: 0 paroxetine HCl 20 mg Tablet 20 mg PO QAM RF: 0 lansoprazole [Prevacid] 15 mg Capsule,Delayed Release(Dr/Ec) 15 mg PO BID RF: 0 hydrocodone-homatropine [Hydromet] 5-1.5 mg/5 mL Syrup 5 ml PO Q4H PRN (Reason: Cough) RF: 0 albuterol sulfate [Proventil HFA] 90 mcg/actuation Hfa Aerosol Inhaler 2 puff INHALATION Q6H PRN (Reason: Shortness Of Breath) RF: 0 Symbicort 160-4.5 mcg/actuation Hfa Aerosol Inhaler 1 puff INHALATION BID RF: 0 furosemide 40 mg Tablet 40 mg PO DAILY 30 Days Qty: 30 RF: 0 ipratropium-albuterol 0.5 mg-3 mg(2.5 mg base)/3 mL Solution For Nebulization 3 ml NEB Q2H PRN (Reason: sob, wheezing) 30 Days Qty: 100 RF: 0 losartan 25 mg Tablet 75 mg PO QAM 30 Days Qty: 90 RF: 0 diltiazem HCl [Cardizem CD] 180 mg capsule,extended release 24hr 180 mg PO DAILY 30 Days Qty: 30 RF: 0
[2018-09-05] MEDS: TRAMADOL HCL 50 MG TABLET PO PRN (22:16)
[2018-09-06] MEDS: PIPERACILLIN/TAZOBACTAM 3.375 GM in DEXTROSE 5% 100 ML IV SCH ×3 (04:09→20:01)
[2018-09-06] MEDS: TRAMADOL HCL 50 MG TABLET PO PRN (05:09)
[2018-09-06 07:26] LABS: Hematocrit (blood only) 27.4 % (37-47); Hemoglobin 9.6 g/dL (12.0-16.0); Mean Corpuscular Volume 93.5 fL (80-100); Mean Platelet Volume 9.1 fL (7.4-10.4); Platelet Count 182 K/uL (130-400); RDW Coefficient of Variation 15.5 % (11.5-14.5); RDW Standard Deviation 53.4 fL (36.4-46.3); Red Blood Count 2.93 M/uL (4.2-5.4); White Blood Count 2.53 K/uL (4.8-10.8)
[2018-09-06] MEDS: ALBUT/IPRATROP 3MG/0.5MG NEB 3 ML VIAL INH SCH ×4 (07:30→19:33)
[2018-09-06 07:49] LABS: Albumin Level 2.4 gm/dl (3.4-5.0); BUN Creatinine Ratio 6.9 (10-20); Creatinine Clr Calc Pharmacy 47.2 ml/min; Est GFR (African American) 68.9; Est GFR (Non-African American) 59.4; Magnesium 2.2 mg/dl (1.8-2.4); Potassium 3.5 mmol/L (3.5-5.1)
[2018-09-06 07:51] LABS: Albumin Globulin Ratio 0.7 (0.9-2); Bilirubin,Total 0.7 mg/dl (0.2-1); Globulin 3.4 gm/dl (2.5-4.0); Total Protein 5.8 gm/dl (6.4-8.2)
[2018-09-06] MEDS: MULTIVITAMIN TAB PO SCH (07:54)
[2018-09-06] MEDS: FUROSEMIDE 40 MG TAB PO SCH (07:55)
[2018-09-06] MEDS: dilTIAZem HCL 180 MG CAPCR PO SCH (07:55)
[2018-09-06] MEDS: PARoxetine HCl 20 MG TAB PO SCH (07:55)
[2018-09-06] MEDS: LOSARTAN POTASSIUM 25 MG TAB PO SCH (07:55)
[2018-09-06] MEDS: PANTOprazole 40 MG TAB PO SCH ×2 (07:56→20:05)
[2018-09-06] MEDS: ASPIRIN 81 MG ECTAB PO SCH (07:56)
[2018-09-06] MEDS: BUDESONIDE/FORMOTEROL FUMARATE 160/4.5 60 PUFFS/INHALER INH SCH ×2 (07:56→20:06)
--- NOTE | 2018-09-06 09:33 | XRay Report ---
XR chest 1V portable CLINICAL HISTORY: Pneumonia, Lung CA COMPARISON STUDY: Chest radiograph and chest CT September 05, 2018. FINDINGS: Left shoulder arthroplasty and postoperative findings within the right lung are noted. Ther e is no pneumothorax. Cardiomediastinal silhouette is stable. There is a trace right pleural effusion . Mild right lung airspace opacities persist. IMPRESSION: No significant change in mild right lung airspace opacities. Electronically signed by: Foster Prado M.D. 09/06/2018 9:32 AM
--- NOTE | 2018-09-06 10:43 | Oncology Consultation ---
Date of Consultation September 06, 2018 Assessment & Plan (1) Hypoxia: Ms. Arellano seems to have a respiratory infectious process. She has had some low-grade fevers, increased cough and sputum production, and a drop in her blood counts, which would be consistent with infection suppressing her marrow. Furthermore, the pattern of change on her scans, particularly given her relatively normal scans a few weeks ago, does not necessarily look like progressive cancer. I would treat her for a respiratory infection for now. We can readdress the role of further chemotherapy as an outpatient, though given the circumstances, I suspect we may hold off on further therapy. Present on Admission?: Yes History of Present Illness Reason for Consultation: Non-small cell lung cancer Shortness of breath Attending Physician: Eva Ardon, DO History of Present Illness Ms. Arellano is a 73 year old woman with locally advanced, unresectable squamous cell lung cancer. She was treated with concurrent chemoradiotherapy in May and June and received her first of two planned cycles of consolidative chemotherapy on 08/05/18. That cycle was complicated by a long hospital stay for febrile neutropenia, mucositis, and severe asthenia. She was discharged on 08/22 with a plan to return to our clinic to discuss the risks and benefits of a final cycle of chemo. She presented to the ER yesterday with multiple complaints, including fatigue, mild confusion, shortness of breath, cough productive of clear sputum, and subjective fevers. In the ER, she had a Tmax of 100.4F. She was also mildly hypoxic, so a CTA was ordered to rule out PE. There was no thrombosis, but the scans did reveal right upper lobe atelectatic changes with air bronchograms and multifocal nodular airspace opacities within the right lung, favoring an infectious/inflammatory etiology. She is a little more comfortable today. She denies any diarrhea, nausea, or neuropathic pain. Allergies Allergy/AdvReac Type Severity Reaction Status Date / Time hydrochlorothiazide AdvReac Intermediate DIZZY, Verified 09/05/18 11:56 "LOOPY" FEELING Home Medications Home Medications Medication Instructions Recorded Confirmed Type Symbicort 1 puff INHALATION BID 03/27/18 09/05/18 History albuterol sulfate [Proventil HFA] 2 puff INHALATION Q6H PRN 03/27/18 09/05/18 History alprazolam 0.25 mg PO BID PRN 03/27/18 09/05/18 History aspirin 81 mg PO QAM 03/27/18 09/05/18 History atorvastatin 20 mg PO QPM 03/27/18 09/05/18 History hydrocodone-homatropine [Hydromet] 5 ml PO Q4H PRN 03/27/18 09/05/18 History ipratropium-albuterol 3 ml INHALATION QID 03/27/18 09/05/18 History lansoprazole [Prevacid] 15 mg PO BID 03/27/18 09/05/18 History multivitamin 1 tab PO QAM 03/27/18 09/05/18 History paroxetine HCl 20 mg PO QAM 03/27/18 09/05/18 History sucralfate 100 mg/mL oral 5 ml PO QID #420 ml 06/19/18 09/05/18 Rx suspension tramadol 50 mg tablet 50 mg PO Q8H PRN #30 tab 07/21/18 09/05/18 Rx diltiazem HCl [Cardizem CD] 180 mg PO DAILY 30 Days #30 cap 08/22/18 09/05/18 Rx furosemide 40 mg PO DAILY 30 Days #30 tab 08/22/18 09/05/18 Rx losartan 75 mg PO QAM 30 Days #90 tab 08/22/18 09/05/18 Rx Patient History Medical History Sarcopenia Acute respiratory failure with hypoxia Encephalopathy Pneumonia (Acute) Neutropenic sepsis Hyponatremia (Acute) Cellulitis of left lower extremity (Acute) Cancer of right lung (Acute) 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 Radiation completed June 25, 2018. She received 6000 cGy. Difficult intubation LEFT FOOT RECONSTRUCTION= 12/28/16= GLIDESCOPE# 3 ETT 7.0 AT [facility] Hypertension (Chronic) Asthma (Chronic) COPD (chronic obstructive pulmonary disease) (Chronic) Hyperlipidemia (Chronic) Anxiety (Chronic) Depression (Chronic) Anemia (Chronic) Anxiety (Chronic) Asthma (Chronic) COPD (chronic obstructive pulmonary disease) (Chronic) Depression (Chronic) Dysphagia (Chronic) Hyperlipidemia (Chronic) Hypertension (Chronic) Irritable bowel disease (Chronic) Mediastinal lymphadenopathy (Chronic) Obesity (Chronic) Lung nodules Surgical History S/P appendectomy (Chronic) S/P hysterectomy (Chronic) H/O: hysterectomy (Acute) History of appendectomy (Resolved) as teenager History of bronchoscopy (Resolved) Multiple History of cataract surgery (Resolved) 2011 - Bilat History of colonoscopy (Resolved) 2017 Hx of abdominal hysterectomy (Resolved) 1972 Hx of foot surgery (Resolved) 2014 & 2017 - LEFT X2 Hx of repair of rotator cuff (Resolved) 2008 - RIGHT Hx of total shoulder replacement (Resolved) 2015 - LEFT Family History Mother Dementia Father , Passed age 67 of Lung Cancer (Heavy Smoker) Lung cancer Brother , Passed in 68 of Liver Cancer Liver cancer Brother , Passed in 60's of [place] Heart attack Brother COPD (chronic obstructive pulmonary disease) Sister No problems noted. Son No problems noted. Son No problems noted. Son No problems noted. Son No problems noted. Daughter No problems noted. 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 Beliefs That Will Affect Care: None marital status: Current Living Situation: Family current occupational status: retired current occupation: Retired from [employer] Other Information That Helps Us Care for You: No Feels Safe at Home: Yes Safety Concerns: Feels Safe At This Time Smoking Status: Never smoker Hx Alcohol Use: No Hx Substance Use: No caffeine: Yes (1 pot of coffee/day ) Review of Systems Constitutional: + fever, + fatigue and + weakness Eyes: no worsening vision Respiratory: as per Subjective / HPI Cardiovascular: no chest pain and no edema Gastrointestinal: no abdominal pain and no nausea Genitourinary (Female): no dysuria and no urinary frequency Generalized weakness, no new bony or joint pain Neurologic: + confusion; no localized weakness and no headache(s) Physical Exam Vital Signs (Past 24 Hours): Last Vital Signs Temp 36.7 C 09/06/18 07:13 Pulse 92 H 09/06/18 08:00 Resp 18 09/06/18 07:33 BP 128/79 09/06/18 07:13 Pulse Ox 92 09/06/18 07:33 Constitutional: + ill appearing (chronically); no acute distress Eyes: + anicteric sclerae and EOM intact bilaterally ENMT: external ear and nose normal, oropharynx normal Respiratory: normal respiratory effort Auscultation: + diminished lung sounds (in all [place]) and + wheezes (scattered) Cardiovascular: RRR, no murmur, no edema Gastrointestinal (Abdomen): normal bowel sounds, soft, nontender, no hepatosplenomegaly Psychiatric: A+Ox3, euthymic affect Results & Data Laboratory Results Abnormal lab results 09/05/18 09/05/18 09/05/18 Range/Units 12:26 12:26 12:41 WBC 3.01 L (4.8-10.8) K/uL RBC 2.87 L (4.2-5.4) M/uL Hgb 9.3 L (12.0-16.0) g/dL POC Hgb 8.2 L (12.0-16.0) g/dl Hct 26.8 L (37-47) % POC Hct 24 L (37-47) % RDW Std Deviation 53.0 H (36.4-46.3) fL RDW Coeff of Filemon 15.4 H (11.5-14.5) % Immature Gran # (Auto) 0.06 H (0.00-0.02) K/uL Lymph # (Auto) 0.38 L (1.2-3.4) K/uL POC Sodium 130 L (135-144) mEq/L Sodium 131 L (136-145) mmol/L POC Chloride 88 L (101-112) mEq/L Chloride 93 L (98-107) mmol/L Carbon Dioxide 35 H (21-32) mmol/L BUN/Creatinine Ratio (10-20) Glucose 116 H (70-99) mg/dl POC Glucose (other) 116 H (70-99) mg/dl AST 10 L (15-37) U/L Total Protein 6.0 L (6.4-8.2) gm/dl Albumin 2.6 L (3.4-5.0) gm/dl Albumin/Globulin Ratio 0.8 L (0.9-2) 09/06/18 09/06/18 Range/Units 06:51 06:51 WBC 2.53 L (4.8-10.8) K/uL RBC 2.93 L (4.2-5.4) M/uL Hgb 9.6 L (12.0-16.0) g/dL POC Hgb (12.0-16.0) g/dl Hct 27.4 L (37-47) % POC Hct (37-47) % RDW Std Deviation 53.4 H (36.4-46.3) fL RDW Coeff of Filemon 15.5 H (11.5-14.5) % Immature Gran # (Auto) (0.00-0.02) K/uL Lymph # (Auto) (1.2-3.4) K/uL POC Sodium (135-144) mEq/L Sodium (136-145) mmol/L POC Chloride (101-112) mEq/L Chloride (98-107) mmol/L Carbon Dioxide 34 H (21-32) mmol/L BUN/Creatinine Ratio 6.9 L (10-20) Glucose 101 H (70-99) mg/dl POC Glucose (other) (70-99) mg/dl AST 10 L (15-37) U/L Total Protein 5.8 L (6.4-8.2) gm/dl Albumin 2.4 L (3.4-5.0) gm/dl Albumin/Globulin Ratio 0.7 L (0.9-2) Diagnostic Findings I personally reviewed her CTA, along with the report from the interpreting radiologist. I agree that the changes seen are more infectious or inflammatory in appearance than consistent with disease progression, particularly when compared to her scan from earlier this month.
[2018-09-06] MEDS: POTASSIUM ACETATE 10 MEQ in 0.9 % SODIUM CHLORIDE 100 ML IV SCH ×2 (10:46→12:15)
--- NOTE | 2018-09-06 12:49 | Hospitalist Progress Note ---
Date of Service September 06, 2018 Assessment & Plan (1) Pneumonia: * Day #2 of Zosyn * Patient is oxygenating better but still with some shortness of breath although hypoxia is improved * Pulmonary has been consulted -appreciate Dr. henriquez's input * Most likely not radiation pneumonitis but positive for inflammatory changes * If no improvement after 1-2 more days of treatment consider short course of steroids * Chest x-ray today unchanged from admission * Continue to monitor * Supplemental O2 as needed to maintain SaO2 greater than 90% (2) Metabolic encephalopathy: * Difficulty to arouse patient overnight and this morning * At the time of my examination the morning she was alert and oriented 3 * I saw the patient again mid afternoon today and again she was alert and oriented x3 with family present * She did have some slow response to questions but answers were appropriate * CT head with no acute findings * Will hold alprazolam and other benzodiazepines as well as use judicious analgesia (3) Cancer of right lung: * Last course of chemotherapy 08/05/2018 * Follows with Dr. Pulido * Oncology consult placed and patient seen by Dr. Cartwright * Dr. Cartwright agrees that this most likely is an inflammatory/infectious process * Continue current treatment * Outpatient follow-up with Dr. Queen upon discharge (4) Hypertension: * Hemodynamically stable * Home medications include aspirin, diltiazem, losartan * Patient also takes Lasix 40 mg daily for lower extremity swelling * Continue to monitor vitals per protocol (5) Chronic pain: * Pain generally controlled * Patient on chronic tramadol 50 mg every 6 hours as needed at home as well as Hydromet 5 mL every 4 hours as needed * Would use pain medication judiciously secondary to encephalopathy * Continue the tramadol as needed (6) COPD (chronic obstructive pulmonary disease): * Patient's respiratory distress this admission does not seem to be related to her COPD but rather inflammatory infectious status * Continue DuoNeb * Continue above treatment for pneumonia * Oxygenating well on room air today * Monitor clinically (7) DVT prophylaxis: * FELISA villar * SCDs * Lovenox subcu Please refer to Dr. Larson's addendum for further recommendations Supervising Physician Co-Signing Physician Notes chart reviewed, case discussed w Gio Mitchell PAC, agree w plan as above. Subjective Attending: Dr. Larson This is a 73 yo female admitted 09/05/18 with multilobar pneumonia. She presented with hypoxia and acute respiratory failure. She was placed on supplementall O2 and started on Zosyn. She has lung cancer and follows with Dr. Pulido. An oncology consult was placed and she was seen by Dr. Flores. At this time, it appears as though cancer is not the contributing factor to her acute decompensation. She currently is oxygenating at 92% on room air. Nursing reports difficulty arrousing her overnight and this morning with minimal response to sternal rub. At the time of my examination, she is awake and alert and able to follow commands. It should be noted that the patient is complaining of dysphagia with no odynophagia. She was eating mashed potatoes and her nurse witnessed some aspiration followed by vomiting. When questioned about this, Mrs. Arellano states that this happens at home and she sometimes needs to vomit 2-3 times before clearing food. I did an informal bedside swallowing eval and she has no difficulty with thin liquids or applesauce. When given a small piece of a slippery peach, she has difficulty swallowing. She is agreeable to [place] instant breakfast or other supplements as well as a visit from a field engineer to discuss food options for adequate caloric intake. She denies, fever, chills, sweats, rigors. Vomiting with food but no nausea or vomiting otherwise. No chest pain or tightness. Continues with cough with clear to white sputum. No hemoptysis. Does report some bronchospams. No other acute complaints. Physical Exam Vital Signs (Past 24 Hours): Last Vital Signs Temp 36.6 C 09/06/18 11:20 Pulse 87 09/06/18 11:23 Resp 18 09/06/18 11:23 BP 135/56 L 09/06/18 11:20 Pulse Ox 92 09/06/18 11:23 Physical Exam: GENERAL : No acute distress. Pleasant. In bedside chair EYES: No icterus, gaze conjugate NOSE: No evidence of epistaxis MOUTH: No lesions or candidiasis. Tongue is midline NECK: Supple LUNGS: Breath sounds are diminished at the bases. Bronchospasm in upper [place] HEART: Regular, rate controlled ABDOMEN: Soft, NT, ND, BS Present EXTREMITIES: No LE edema, pedal pulses intact NEURO: A&OX3. Slow to answer some questions. Results & Data Laboratory Results Abnormal lab results 09/06/18 09/06/18 Range/Units 06:51 06:51 WBC 2.53 L (4.8-10.8) K/uL RBC 2.93 L (4.2-5.4) M/uL Hgb 9.6 L (12.0-16.0) g/dL Hct 27.4 L (37-47) % RDW Std Deviation 53.4 H (36.4-46.3) fL RDW Coeff of Filemon 15.5 H (11.5-14.5) % Carbon Dioxide 34 H (21-32) mmol/L BUN/Creatinine Ratio 6.9 L (10-20) Glucose 101 H (70-99) mg/dl AST 10 L (15-37) U/L Total Protein 5.8 L (6.4-8.2) gm/dl Albumin 2.4 L (3.4-5.0) gm/dl Albumin/Globulin Ratio 0.7 L (0.9-2) Diagnostic Findings XR chest 1V portable CLINICAL HISTORY: Pneumonia, Lung CA COMPARISON STUDY: Chest radiograph and chest CT September 05, 2018. FINDINGS: Left shoulder arthroplasty and postoperative findings within the right lung are noted. There is no pneumothorax. Cardiomediastinal silhouette is stable. There is a trace right pleural effusion. Mild right lung airspace opacities persist. IMPRESSION: No significant change in mild right lung airspace opacities. Electronically signed by: Foster Prado M.D. 09/06/2018 9:[address] ANGIOGRAM OF THE CHEST CLINICAL HISTORY: Hypoxia. Possible pulmonary embolism. COMPARISON STUDY: Chest CT dated 08/15/2018 TECHNIQUE: Following the IV administration of 119 mL of Optiray-320, CT angiogram of the thorax was performed from the thoracic inlet to the lung bases utilizing the pulmonary embolus protocol. Images are reviewed in the axial, sagittal, and coronal planes. IV contrast was administered without complication. MIP imaging was performed. A dose lowering technique was utilized adhering to the principles of ALARA. CT DOSE: 379.48 mGy.cm FINDINGS: The visualized portions the upper abdomen reveal cholelithiasis. No pathologically enlarged axillary mediastinal or hilar lymph nodes were visualized. There was no evidence of thoracic aortic dilatation. There were no pulmonary artery filling defects to indicate acute pulmonary embolism. There is a trace right pleural effusion There is narrowing of the right upper lobe bronchus. There are right upper lobe atelectatic changes with air bronchograms. There are multifocal nodular airspace opacities within the right lung, favoring an infectious/inflammatory etiology. There is mild bronchial wall thickening. There is diffuse esophageal wall thickening, likely secondary to radiation therapy or a diffuse infectious esophagitis. IMPRESSION: 1. No evidence of acute pulmonary embolism 2. Multifocal nodular right lung airspace opacities likely infectious/inflammatory 3. Narrowing of the right upper lobe bronchus with secondary right upper lobe atelectatic changes in her bronchograms 4. Diffuse esophageal wall thickening. Electronically signed by: Julio Eastman M.D. 09/05/2018 1:51 PM (1) Pneumonia Laterality: right Lung location: lower lobe of lung Pneumonia type: due to unspecified organism Qualified Code(s): J18.1 - Lobar pneumonia, unspecified or ganism
--- NOTE | 2018-09-06 13:12 | Consultation Report ---
DATE OF CONSULTATION: 09/06/2018 PULMONARY CONSULTATION TIME: 9:10 a.m. REPORT OF CONSULTATION: The patient was seen in room 259. She is a 73-year-old female who presented to the Emergency Room yesterday with shortness of breath, weakness, confusion, and problems with balance. Her history is that she was diagnosed with carcinoma in situ of the right lung in 2014 and was treated with cryotherapy. In the fall of 2017, she was found to have mediastinal adenopathy. EBUS was done by Dr. Torres on 04/01/2018 and it showed multiple sites with squamous cell carcinoma. Subsequently, she was given chemotherapy and radiation therapy. She has completed radiation, but has continued with chemo with her last dose being in late July. She was hospitalized from 08/13/2018 through 08/22/2018 with neutrophilic sepsis, pneumonia, and cellulitis. The patient lives at home with her mother who is aged 91. She stays on one floor. She does get short of breath going up steps. Recently she has had increased weakness with some degree of confusion reported. She also has had some trouble maintaining her balance. This prompted coming to the Emergency Room yesterday. She states for 4 or 5 days she has been more short of breath than usual with some increased cough. Her mucus is small amounts and it is clear. There has been no hemoptysis. She did not have chills, fevers, or sweats. The patient reports she feels slightly better this morning. She had a pretty good night. She has been able to walk to the bathroom using a walker and with nursing assistance without too much difficulty. Her oxygen saturation upon arrival was 88% on room air. She was put on low-flow oxygen, but this morning does not have the oxygen in place. REVIEW OF SYSTEMS: As noted, the patient has been weak. She has had mild headache. She complains of nasal congestion and coryza. She has had mouth pain and discomfort secondary to mucositis from the chemotherapy. She has some difficulty swallowing. She has some painful swallowing. Presumably this is related to radiation affecting the esophagus. Energy level has been low. She denies bowel complaints or urine complaints. Denies pain. The remainder of the review of systems is negative except as noted above. PAST MEDICAL HISTORY: 1. Hypertension. 2. COPD. 3. Hyperlipidemia. 4. Anxiety/depression. 5. Anemia. 6. Dysphagia. 7. Irritable bowel syndrome. PAST SURGICAL HISTORY: 1. Left foot surgery x2. 2. EBUS biopsy. 3. Appendectomy. 4. Hysterectomy in 1971. 5. Cataract surgery, right and left. 6. Right rotator cuff surgery. 7. Left total shoulder surgery. FAMILY HISTORY: Mother living at age 91, dementia. Father at 67, lung cancer. Brother at 68, liver cancer. Brother , [place]. Brother living, COPD. SOCIAL HISTORY: Tobacco 1 pack per day for 15 years, but none for 40 years. ETOH - none. ALLERGIES: HCTZ. MEDICATIONS AT HOME: 1. Ventolin HFA. 2. Neb treatments with albuterol, which she usually does 3 times per day. 3. Alprazolam. 4. Baby aspirin. 5. Atorvastatin 20 mg daily. 6. Cardizem CD 180 mg daily. 7. Furosemide 40 mg daily. 8. Hydromet p.r.n. 9. Nebs with DuoNebs q.i.d. 10. Prevacid 15 mg b.i.d. 11. Losartan 75 mg daily. 12. Paroxetine 20 mg daily. 13. Sucralfate q.i.d. 14. Symbicort 1 puff b.i.d. 15. Tramadol 50 mg p.r.n. PHYSICAL EXAMINATION: GENERAL: The patient is a pleasant 73-year-old female who appears chronically ill. She is cooperative, alert and oriented. She was in no distress at rest. VITAL SIGNS: Weight is 73.4 kilograms. BMI is 31.6. HEENT: Pupils were reactive to light and equal in size. Implants were noted bilaterally. The left nostril was narrow and had near occlusion with dried blood. Mouth exam showed a brown tongue. Membranes were dry. NECK: Palpation of the neck reveals no lymph nodes or masses. CARDIAC: Rate is 97 per minute. Rhythm is regular. Blood pressure 128/79. Yesterday, her initial blood pressure had been only 97/53. CHEST: Was of normal expansion. Respiratory rate 18 breaths per minute and not labored. LUNGS: Lung [place] revealed mild wheeze bilaterally on expiration. No accessory muscle use was noted. Saturation on room air 92%. ABDOMEN: Soft. Bowel sounds were present. There was no tenderness to palpation or masses. EXTREMITIES: Showed some of her skin in the lower legs was peeling. There was +1 edema of both lower extremities. No cyanosis or clubbing. IMAGING DATA: The patient had a chest x-ray done yesterday that reported scattered plate-like atelectasis. She had a CAT scan of the chest yesterday. There was no evidence of pulmonary embolism. There is narrowing of the right upper lobe bronchus anteriorly. I believe this reflects some degree of atelectasis, but the area is more open than on the prior CAT scan done on 08/15/2018. On the current scan, there are at least 3 areas of somewhat nodular airspace opacities in the right lung which were not seen on the prior CAT scan and thus are likely areas of patchy pneumonia. There seems to be scarring through the right chest in a fairly linear fashion from superior to inferior and I suspect this reflects radiation change. She did have a prior CAT scan on 07/23/2018 that was much clearer than the more recent scans. CAT scan of the head showed no acute abnormality. LABORATORY DATA: White count is 2.53. Hemoglobin 9.6. Platelets 182,000. Yesterday's white count was 3.01. There was a differential at that time that showed 71.7% neutrophils. Coags are normal. Electrolytes show sodium 137, potassium 3.5, chloride 99, bicarbonate 34. BUN is 7 with creatinine 0.95. Liver functions showed ALT and alkaline phosphatase normal and AST decreased to 10. Albumin 2.4 and total protein 5.8. Urine test was negative. Flu test was negative. IMPRESSION: 1. Multiple right lung infiltrates - new in the past few weeks - suspect pneumonia in immunosuppressed host. 2. Right upper lobe anterior segment atelectasis - improved. 3. Lung carcinoma - squamous cell - stage III. 4. Chronic obstructive pulmonary disease exacerbation. 5. Radiation fibrosis. COMMENTS AND RECOMMENDATIONS: The patient is currently on Zosyn, which I agree with for this particular infection. She is also on Neb treatments that she gets at home. I would suggest Dubois nasal spray, because of the severe dryness in her nose. She has what appears to be some degree of radiation fibrosis. I do not think that she needs steroids at this time. I think it is more fibrotic than radiation pneumonitis. If, however, she does not improve from a bronchospasm perspective, then a short course of steroids may be indicated. Thank you for asking me to assist in her care.
[2018-09-06] MEDS: ENOXAPARIN INJ 40 MG/0.4 ML SYR SQ SCH (20:05)
[2018-09-06] MEDS: ATORVASTATIN 20 MG TAB PO SCH (20:05)
[2018-09-07] MEDS: PIPERACILLIN/TAZOBACTAM 3.375 GM in DEXTROSE 5% 100 ML IV SCH ×3 (04:06→20:30)
--- NOTE | 2018-09-07 07:17 | XRay Report ---
XR chest 1V portable HISTORY: 73 years-old Female Multilobar pneumonia acute shortness of breath with pneumonia COMPARISON: Chest radiograph 09/06/2018 TECHNIQUE: Portable AP view the chest FINDINGS: Cardiac mediastinal and hilar silhouettes are unchanged with persistent right hilar prominence. No pn eumothorax, large pleural effusion or overt pulmonary edema. Unchanged blunting of the costophrenic a ngles suggests trace effusions. Unchanged right midlung opacities. Degenerative changes of the spine and right shoulder. Left shoulder arthroplasty. IMPRESSION: Unchanged right midlung opacities. The above report was generated using voice recognition software. It may contain grammatical, syntax o r spelling errors. Electronically signed by: Puneet Murguia M.D. 09/07/2018 7:15 AM
[2018-09-07 07:18] LABS: Hematocrit (blood only) 28.6 % (37-47); Mean Corpuscular Volume 93.5 fL (80-100); Mean Platelet Volume 8.9 fL (7.4-10.4); Platelet Count 227 K/uL (130-400); RDW Coefficient of Variation 15.3 % (11.5-14.5); RDW Standard Deviation 52.5 fL (36.4-46.3); Red Blood Count 3.06 M/uL (4.2-5.4); White Blood Count 2.35 K/uL (4.8-10.8)
[2018-09-07] MEDS: ALBUT/IPRATROP 3MG/0.5MG NEB 3 ML VIAL INH SCH ×4 (07:28→20:39)
[2018-09-07 07:43] LABS: Albumin Level 2.5 gm/dl (3.4-5.0); BUN Creatinine Ratio 6.7 (10-20); Creatinine Clr Calc Pharmacy 45.7 ml/min; Est GFR (African American) 66.3; Est GFR (Non-African American) 57.2; Magnesium 2.1 mg/dl (1.8-2.4); Potassium 3.4 mmol/L (3.5-5.1)
[2018-09-07 07:45] LABS: Albumin Globulin Ratio 0.7 (0.9-2); Bilirubin,Total 0.7 mg/dl (0.2-1); Globulin 3.7 gm/dl (2.5-4.0); Total Protein 6.2 gm/dl (6.4-8.2)
[2018-09-07] MEDS: ONDANSETRON INJ 2 MG/ML 2 ML VIAL IV PRN ×2 (08:06→18:51)
--- NOTE | 2018-09-07 09:21 | Hospitalist Progress Note ---
Date of Service September 07, 2018 Assessment & Plan (1) Acute respiratory failure with hypoxia: Secondary to pneumonia resolved with treatment (2) Pneumonia: Suggestion on CT scan to be in the right upper lobe area there is some fluid in the fissure and pulmonary nodule also noted which is chronic (3) Encephalopathy: - metabolic encephalopathy secondary to pneumonia - BCx pending - Chest CTA reviewed and suggestive of RUL pneumonia - will ask oncology and pulmonology to assess due to R. lung cancer - Check CT head/brain w/o contrast to r/o stroke - O2 sats were 88% on arrival, have improved at this time to 96% on 2L. - Continue on zosyn IV for pulmonary source with recent pneumonia during last admission and possible recurrence - Flu swab negative -Initially was neutropenic, but not pancytopenic. - PT/OT cassius patient's family plans are to return to [place] for subacute rehab (4) Hyponatremia: - Mild hyponatremia with Na+ - 130 - Was present during last admission only 2 weeks ago. Possibly related to acute illness and chronic lung pathology - Poor oral intake likely contributing as well. Encourage po intake. - If not improving consider SIADH and r/o. (5) Cancer of right lung: - Follows with Dr. Pulido as outpatient, oncology consulted - Imaging of the chest, chemotherapy per oncology. - Most recent chemo was Aug 05 and was a reduced dose. Finished radiation therapy about 1 mo ago. Nu has some residual radiation pneumonitis. - Continue using magic swizzle to aid in swallowing as pt notes burning sensation in her throat. Continue soft diet. (6) COPD (chronic obstructive pulmonary disease): - Hx of such, stable, no acute exacerbation (7) Asthma: - Chronic, stable, no acute exacerbation - Continue symbicort and proventil (8) Hypertension: - Continue asa 81 mg, diltiazem 180 mg daily, lasix 40 mg daily for lower extremity swelling, losartan 75 mg daily, - HH diet (9) Hyperlipidemia: (10) Anxiety: (11) Depression: - Stable, continue paxil 20 mg QAM - holding alprazolam with hypoxia on presentation. 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 (12) Sarcopenia: - Albumin decreased - Order protein supplementation for snacks between meals and HS. - If pt not able to drink this much then at least give at bedtime. (13) Chronic pain: - Continue tramdol 50 mg Q6H prn, has been using q6h scheduled as outpatient. - Continue hydromet 5 ml Po Q4H po prn (14) DVT prophylaxis: teds, scds, lovenox subq Subjective Patient feels much improved and over yesterday. CT scan did suggest pneumonitis in the right lung as well as persistent fluid in the fissure and a previous pulmonary nodule in a different location. Her family is present in the room and are considering her returning to [place] for subacute rehab. Review of Systems ROS: Patient appears slightly confused and much older than her stated age No double vision blurry vision No problems with speech or swallowing No palpitations, chest pain or pressure much less shortness of breath and non productive cough No abdominal pain nausea vomiting diarrhea changes in appetite or weight No burning urine urine frequency or changes in color No focal joint pain or muscle pain No skin rashes or oral lesions No unusual bruising or bleeding No focused back pain or numbness or loss of strength No changes in memory or confusion Physical Exam Vital Signs (Past 24 Hours): Last Vital Signs Temp 36.4 C L 09/07/18 08:15 Pulse 88 09/07/18 08:15 Resp 22 09/07/18 08:15 BP 125/73 09/07/18 08:15 Pulse Ox 94 09/07/18 08:15 The patient appeared well nourished and normally developed. Vital signs as documented. Head exam is unremarkable. normocephalic, atraumatic Neck is without jugular venous distension, thyromegaly, or lymphademopathy Lungs Decreased breath sounds in the right lung with some tubular breath sounds at the right apex Cardiac exam reveals Rhythm is regular. First and second heart sounds normal. Abdominal exam reveals normal bowel sounds, no masses, no organomegaly Extremities are nonedematous and both pedal pulses are present Neurologic exam is A&Ox3, no focal deficits, strength is equal bilateral Psychologically seems neither depressed Skin is warm Dry without bruises or lesions (1) Pneumonia Laterality: right Lung location: lower lobe of lung Pneumonia type: due to unspecified organism Qualified Code(s): J18.1 - Lobar pneumonia, unspecified organism
[2018-09-07] MEDS: TRAMADOL HCL 50 MG TABLET PO PRN (09:51)
[2018-09-07] MEDS: ASPIRIN 81 MG ECTAB PO SCH (09:52)
[2018-09-07] MEDS: dilTIAZem HCL 180 MG CAPCR PO SCH (09:52)
[2018-09-07] MEDS: LOSARTAN POTASSIUM 25 MG TAB PO SCH (09:52)
[2018-09-07] MEDS: PARoxetine HCl 20 MG TAB PO SCH (09:52)
[2018-09-07] MEDS: PANTOprazole 40 MG TAB PO SCH ×2 (09:52→20:30)
[2018-09-07] MEDS: MULTIVITAMIN TAB PO SCH (09:52)
[2018-09-07] MEDS: BUDESONIDE/FORMOTEROL FUMARATE 160/4.5 60 PUFFS/INHALER INH SCH ×2 (09:52→20:30)
[2018-09-07] MEDS: FUROSEMIDE 40 MG TAB PO SCH (09:52)
--- NOTE | 2018-09-07 15:50 | Progress Note ---
DATE: 09/07/2018 PULMONARY PROGRESS NOTE TIME: 2:50 p.m. SUBJECTIVE: The patient states she is feeling much better. She feels stronger. She is less short of breath. Nursing reports no confusion. They feel she is much better. OBJECTIVE: GENERAL: The patient appeared comfortable. She was cooperative, alert and oriented. VITAL SIGNS: Temperature 36.6. There have been no fevers. HEART: Heart rate 95 per minute. Rhythm regular. Blood pressure 102/63. LUNGS: Respiratory rate 18. Lung [place] revealed few rales posteriorly. There was no accessory muscle use. Saturation was 93% on room air. EXTREMITIES: Showed no edema. LABORATORY DATA: White count is 2.35. Yesterday it was 2.53. Hemoglobin is 10. Platelets 227,000. Electrolytes show sodium 138, potassium 3.4, chloride 100, bicarbonate 31. Chest x-ray done today showed no change in the right mid lung field opacities. There is right hilar prominence, which is unchanged. IMPRESSION: 1. Multiple right lung infiltrates, new in the past few weeks -- suspect pneumonia in an immunosuppressed host. 2. Right upper lobe anterior segment atelectasis -- improved. 3. Squamous cell carcinoma stage III. 4. Chronic obstructive pulmonary disease with exacerbation. 5. Radiation fibrosis. COMMENTS AND RECOMMENDATIONS: In light of the patient's significant improvement, I would continue the current therapy.
[2018-09-07] MEDS: ATORVASTATIN 20 MG TAB PO SCH (20:31)
[2018-09-07] MEDS: ENOXAPARIN INJ 40 MG/0.4 ML SYR SQ SCH (20:31)
[2018-09-08] MEDS: PIPERACILLIN/TAZOBACTAM 3.375 GM in DEXTROSE 5% 100 ML IV SCH ×3 (04:45→19:58)
[2018-09-08] MEDS: ALBUT/IPRATROP 3MG/0.5MG NEB 3 ML VIAL INH SCH ×4 (07:17→19:55)
[2018-09-08 07:32] LABS: Hematocrit (blood only) 27.7 % (37-47); Hemoglobin 9.4 g/dL (12.0-16.0); Mean Corpuscular Hgb Conc 33.9 g/dL (32-36); Mean Corpuscular Volume 95.2 fL (80-100); Mean Platelet Volume 8.3 fL (7.4-10.4); Platelet Count 229 K/uL (130-400); RDW Coefficient of Variation 15.6 % (11.5-14.5); RDW Standard Deviation 54.1 fL (36.4-46.3); Red Blood Count 2.91 M/uL (4.2-5.4); White Blood Count 2.26 K/uL (4.8-10.8)
[2018-09-08] MEDS: LOSARTAN POTASSIUM 25 MG TAB PO SCH (07:41)
[2018-09-08] MEDS: dilTIAZem HCL 180 MG CAPCR PO SCH (07:41)
[2018-09-08] MEDS: FUROSEMIDE 40 MG TAB PO SCH (07:42)
[2018-09-08] MEDS: PANTOprazole 40 MG TAB PO SCH ×2 (07:42→21:41)
[2018-09-08] MEDS: MULTIVITAMIN TAB PO SCH (07:42)
[2018-09-08] MEDS: PARoxetine HCl 20 MG TAB PO SCH (07:42)
[2018-09-08] MEDS: BUDESONIDE/FORMOTEROL FUMARATE 160/4.5 60 PUFFS/INHALER INH SCH ×2 (07:42→21:39)
[2018-09-08] MEDS: ASPIRIN 81 MG ECTAB PO SCH (07:42)
[2018-09-08 08:09] LABS: Albumin Globulin Ratio 0.6 (0.9-2); Albumin Level 2.3 gm/dl (3.4-5.0); BUN Creatinine Ratio 6.9 (10-20); Bilirubin,Total 0.6 mg/dl (0.2-1); Calcium 8.7 mg/dl (8.5-10.1); Creatinine Clr Calc Pharmacy 43.9 ml/min; Est GFR (African American) 63.2; Est GFR (Non-African American) 54.5; Globulin 3.7 gm/dl (2.5-4.0); Magnesium 1.9 mg/dl (1.8-2.4); Potassium 3.6 mmol/L (3.5-5.1)
--- NOTE | 2018-09-08 10:32 | Hospitalist Progress Note ---
Date of Service September 08, 2018 Assessment & Plan (1) Acute respiratory failure with hypoxia: Secondary to pneumonia resolved with treatment breathing room air today at rest, no distress (2) Pneumonia: Suggestion on CT scan to be in the right upper lobe area there is some fluid in the fissure and pulmonary nodule also noted which is chronic continue to treat with Zosyn IV afebrile, WBC low at 2.2k likely transition to PO antibiotics tomorrow and see how she does (3) Encephalopathy: - metabolic encephalopathy secondary to pneumonia - BCx - no growth - Chest CTA reviewed and suggestive of RUL pneumonia - Check CT head/brain w/o contrast - no abnormalities - O2 sats were 88% on arrival, now she is >90% on room air - Continue on zosyn IV for pulmonary source with recent pneumonia during last admission and possible recurrence - Flu swab negative - PT/OT cassius patient's family plans are to return to [place] for subacute rehab (4) Hyponatremia: - Mild hyponatremia with Na+ 130 improved to 140, thus hyponatremia resolved likely poor solute intake as well as dehydration, infection (5) Cancer of right lung: - Follows with Dr. Pulido as outpatient, oncology consulted - Imaging of the chest, chemotherapy per oncology. - Most recent chemo was Aug 05 and was a reduced dose. Finished radiation therapy about 1 mo ago. Nu has some residual radiation pneumonitis. - Continue using magic swizzle to aid in swallowing as pt notes burning sensation in her throat. Continue soft diet. (6) COPD (chronic obstructive pulmonary disease): - Hx of such, stable, no acute exacerbation (7) Asthma: - Chronic, stable, no acute exacerbation - Continue symbicort and proventil (8) Hypertension: - Continue asa 81 mg, diltiazem 180 mg daily, lasix 40 mg daily for lower extremity swelling, losartan 75 mg daily, - HH diet (9) Hyperlipidemia: (10) Anxiety: (11) Depression: - Stable, continue paxil 20 mg QAM - holding alprazolam with hypoxia on presentation. 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 (12) Sarcopenia: - Albumin decreased - Order protein supplementation for snacks between meals and HS. - If pt not able to drink this much then at least give at bedtime. (13) Chronic pain: - Continue tramdol 50 mg Q6H prn, has been using q6h scheduled as outpatient. - Continue hydromet 5 ml Po Q4H po prn (14) DVT prophylaxis: teds, scds, lovenox subq PT/OT, plan for [facility] rehab could be ready tomorrow or Saturday Subjective patient says her breathing is better still with cough, not productive of sputum appetite is okay, but only tolerating liquids, afraid to try solids last BM was a few days ago, no abdominal pain no fever or sweats BMP is stable today, WBC is 2.2 and Hb is 9gm strength is okay, independent walking to the bathroom planning on video swallow later this afternoon Review of Systems All systems reviewed & are unremarkable except as noted in HPI & below Constitutional: + weakness; no fever and no sweats Respiratory: + cough and + dyspnea on exertion; no hemoptysis, no pain on inspiration and no sputum production Gastrointestinal: + nausea and + constipation; no abdominal pain, no vomiting and no diarrhea/loose stools Physical Exam Vital Signs (Past 24 Hours): Last Vital Signs Temp 36.4 C L 09/08/18 08:00 Pulse 94 H 09/08/18 08:00 Resp 17 09/08/18 08:00 BP 128/77 09/08/18 08:00 Pulse Ox 92 09/08/18 08:00 Constitutional: WD/WN, vitals as above Eyes: PERRL, conjunctivae normal, anicteric sclerae ENMT: external ear and nose normal, oropharynx normal Neck: trachea midline, no thyromegaly Respiratory: normal respiratory effort and + cough; no respiratory distress Auscultation: + wheezes (mild expiratory, bilaterally); no crackles and no rhonchi Cardiovascular: RRR, no murmur, no edema Gastrointestinal (Abdomen): normal bowel sounds, soft, nontender, no hepatosplenomegaly Musculoskeletal: no cyanosis or clubbing, extremities motor strength 5/5 Skin: no rashes, warm and dry Neurologic: patellar DTR's 2+ bilat, sensation intact and PERRL, EOMI, accommodation nl, no face palsy, no dysarthria Psychiatric: A+Ox3, euthymic affect Lymphatic: no cervical or axillary lymphadenopathy Results & Data Laboratory Results Laboratory Results - last 24 hr 09/07/18 09/08/1819 11:10 07:10 07:10 WBC 2.26 L RBC 2.91 L Hgb 9.4 L Hct 27.7 L MCV 95.2 MCH 32.3 MCHC 33.9 RDW Std Deviation 54.1 H RDW Coeff of Filemon 15.6 H Plt Count 229 MPV 8.3 Sodium 140 Potassium 3.6 Chloride 102 Carbon Dioxide 32 Anion Gap 6.0 BUN 7 Creatinine 1.02 Est Cr Clr Drug Dosing 43.9 Est GFR ( Amer) 63.2 Est GFR (Non-Af Amer) 54.5 BUN/Creatinine Ratio 6.9 L Glucose 107 H Calcium 8.7 Magnesium 1.9 Total Bilirubin 0.6 AST 10 L ALT 13 Alkaline Phosphatase 99 Total Protein 6.0 L Albumin 2.3 L Globulin 3.7 Albumin/Globulin Ratio 0.6 L Stl C. diff Tox B Gene Negative Cdiff Gene Medications Administered Current Inpatient Medications Acetaminophen (Tylenol) 650 mg PO Q4H PRN PRN Reason: Moderate Pain Stop: 10/05/18 17:34 Albuterol (Duoneb) 3 ml INH QIDR ERICKA Stop: 10/05/18 19:59 Last Admin: 09/08/18 07:17 Dose: 3 ml Documented by: Albuterol (Ventolin Hfa) 2 puffs INH Q6H PRN PRN Reason: Shortness Of Breath Stop: 10/05/18 17:34 Aspirin (Ecotrin Ectab) 81 mg PO QAM ERICKA Stop: 10/06/18 08:59 Last Admin: 09/08/18 07:42 Dose: 81 mg Documented by: Atorvastatin Calcium (Lipitor) 20 mg PO QPM ERICKA Stop: 10/05/18 20:59 Last Admin: 09/07/18 20:31 Dose: 20 mg Documented by: Budesonide/Formoterol Fumarate (Symbicort 160mcg/4.5mcg) 1 puffs INH BID ERICKA Stop: 10/05/18 20:59 Last Admin: 09/08/18 07:42 Dose: 1 puffs Documented by: Al Hydrox/Mg Hydrox/Simethicone 50 ml/Diphenhydramine HCl 125 mg/Lidocaine HCl 40 ml/Sucralfate 10,000 mg/ BARCODE IDENTIFIER 1 ea 0 ml PO Q8H PRN PRN Reason: Sore Throat Stop: 10/05/18 21:01 Last Admin: 09/06/18 00:05 Dose: 5 ml Documented by: Diltiazem HCl (Cardizem Cd) 180 mg PO DAILY [facility] Stop: 10/06/18 08:59 Last Admin: 09/08/18 07:41 Dose: 180 mg Documented by: Enoxaparin Sodium (Lovenox) 40 mg SQ Q24H [facility] Stop: 10/05/18 20:59 Last Admin: 09/07/18 20:31 Dose: 40 mg Documented by: Furosemide (Lasix) 40 mg PO DAILY [facility] Stop: 10/06/18 08:59 Last Admin: 09/08/18 07:42 Dose: 40 mg Documented by: Hydrocodone Bit/Homatropine Methylb (Hycodan) 5 ml PO Q4H PRN PRN Reason: Cough Stop: 09/19/18 17:34 Last Admin: 09/06/18 04:51 Dose: 5 ml Documented by: Piperacillin Sod/Tazobactam (Sod 3.375 gm/ Dextrose) 115 mls @ 28.75 mls/hr IV Q8H [facility] Stop: 09/12/18 13:59 Last Infusion: 09/08/18 08:33 Dose: Infused Documented by: Ioversol (Optiray 320 125ml) 119 ml IV ONCE PRN PRN Reason: Interaction Checking Stop: 09/09/18 13:30 Last Admin: 09/05/18 13:32 Dose: 119 ml Documented by: Losartan Potassium (Cozaar) 75 mg PO QAM [facility] Stop: 10/06/18 08:59 Last Admin: 09/08/18 07:41 Dose: 75 mg Documented by: Miscellaneous Information (Consult) 1 ea N/A UD PRN PRN Reason: Consult Stop: 10/05/18 17:34 Multivitamins (Multivitamin Tab) 1 tab PO QAM [facility] Stop: 10/06/18 08:59 Last Admin: 09/08/18 07:42 Dose: 1 tab Documented by: Ondansetron HCl (Zofran) 4 mg IV Q4H PRN PRN Reason: Nausea And Vomiting Stop: 10/05/18 17:34 Last Admin: 09/07/18 18:51 Dose: 4 mg Documented by: Pantoprazole Sodium (Protonix) 40 mg PO BID [facility] Stop: 10/05/18 20:59 Last Admin: 09/08/18 07:42 Dose: 40 mg Documented by: Paroxetine HCl (Paxil) 20 mg PO QAM ERICKA Stop: 10/06/18 08:59 Last Admin: 09/08/18 07:42 Dose: 20 mg Documented by: Tramadol HCl (Ultram) 50 mg PO Q8H PRN PRN Reason: pain Stop: 10/05/18 17:34 Last Admin: 09/07/18 09:51 Dose: 50 mg Documented by: (1) Pneumonia Laterality: right Lung location: lower lobe of lung Pneumonia type: due to unspecified organism Qualified Code(s): J18.1 - Lobar pneumonia, unspecified organism
--- NOTE | 2018-09-08 18:47 | Pulmonology Progress Note ---
Date of Service September 08, 2018 Assessment & Plan (1) Pneumonia: multifocal pneumonia continue piperacillin-tazobactam COPD improving symbicort. albuterol as needed squamous cell lung CA Laterality: right Lung location: lower lobe of lung Pneumonia type: due to unspecified organism Qualified Code(s): J18.1 - Lobar pneumonia, unspecified organism Subjective no shortness of breath no pain Physical Exam Vital Signs (Past 24 Hours): Last Vital Signs Temp 36.6 C 09/08/18 15:57 Pulse 98 H 09/08/18 16:00 Resp 18 09/08/18 15:57 BP 147/74 H 09/08/18 15:57 Pulse Ox 90 09/08/18 15:57 Physical Exam: Constitutional: Comfortable NAD HEENT: normocephalic atraumatic. MMM. CV: RRR nl s1,s2 no murmurs rubs or gallops Lungs: slight crackles bilaterally. no accessory muscle use Abd: soft nontender nondistended. normal bowel sounds Ext: no edema. no cyanosis, no edema Skin: warm dry Neuro: alert and oriented. moving all extremities Psych: normal mood and affect
[2018-09-08] MEDS: ENOXAPARIN INJ 40 MG/0.4 ML SYR SQ SCH (21:40)
[2018-09-08] MEDS: ATORVASTATIN 20 MG TAB PO SCH (21:41)
[2018-09-09] MEDS: PIPERACILLIN/TAZOBACTAM 3.375 GM in DEXTROSE 5% 100 ML IV SCH ×2 (03:32→11:53)
[2018-09-09] MEDS: ALBUT/IPRATROP 3MG/0.5MG NEB 3 ML VIAL INH SCH ×4 (07:35→19:54)
[2018-09-09] MEDS: BUDESONIDE/FORMOTEROL FUMARATE 160/4.5 60 PUFFS/INHALER INH SCH ×2 (07:43→20:26)
[2018-09-09] MEDS: MULTIVITAMIN TAB PO SCH (07:44)
[2018-09-09] MEDS: PANTOprazole 40 MG TAB PO SCH ×2 (07:44→20:26)
[2018-09-09] MEDS: ASPIRIN 81 MG ECTAB PO SCH (07:44)
[2018-09-09] MEDS: dilTIAZem HCL 180 MG CAPCR PO SCH (07:44)
[2018-09-09] MEDS: FUROSEMIDE 40 MG TAB PO SCH (07:44)
[2018-09-09] MEDS: PARoxetine HCl 20 MG TAB PO SCH (07:45)
[2018-09-09] MEDS: LOSARTAN POTASSIUM 25 MG TAB PO SCH (07:45)
[2018-09-09 11:32] LABS: Eosinophils # (auto) 0.04 K/uL (0-0.5); Eosinophils % (auto) 1.3 %; Hematocrit (blood only) 27.1 % (37-47); Hemoglobin 9.5 g/dL (12.0-16.0); Immature Granulocytes # (auto) 0.09 K/uL (0.00-0.02); Immature Granulocytes % (auto) 2.8 %; Lymphocytes # (auto) 0.51 K/uL (1.2-3.4); Lymphocytes % (auto) 16.1 %; Mean Corpuscular Hgb Conc 35.1 g/dL (32-36); Mean Corpuscular Volume 95.1 fL (80-100); Mean Platelet Volume 8.3 fL (7.4-10.4); Monocytes # (auto) 0.47 K/uL (0.11-0.59); Monocytes % (auto) 14.9 %; Neutrophils # (auto) 2.05 K/uL (1.4-6.5); Neutrophils % (auto) 64.9 %; Platelet Count 249 K/uL (130-400); RDW Coefficient of Variation 15.6 % (11.5-14.5); RDW Standard Deviation 53.7 fL (36.4-46.3); Red Blood Count 2.85 M/uL (4.2-5.4); White Blood Count 3.16 K/uL (4.8-10.8)
--- NOTE | 2018-09-09 11:40 | Pulmonology Progress Note ---
Date of Service September 09, 2018 Assessment & Plan (1) Pneumonia: multifocal pneumonia continue piperacillin-tazobactam COPD improving symbicort. albuterol as needed squamous cell lung CA reviewed previous CT with concerning pleural based mass on R appears to have improved on more recent CT likely was infectious at that time swallow eval Laterality: right Lung location: lower lobe of lung Pneumonia type: due to unspecified organism Qualified Code(s): J18.1 - Lobar pneumonia, unspecified organism Subjective no shortness of breath no pain no shortness of breath when walking Physical Exam Vital Signs (Past 24 Hours): Last Vital Signs Temp 37.1 C 09/09/18 07:55 Pulse 97 H 09/09/18 11:07 Resp 18 09/09/18 11:07 BP 130/71 09/09/18 07:55 Pulse Ox 94 09/09/18 11:07 Physical Exam: Constitutional: Comfortable NAD HEENT: normocephalic atraumatic. MMM. CV: RRR nl s1,s2 no murmurs rubs or gallops Lungs: clear to ausculation bilaterally. no accessory muscle use Abd: soft nontender nondistended. normal bowel sounds Ext: no edema. no cyanosis, no edema Skin: warm dry Neuro: alert and oriented. moving all extremities Psych: normal mood and affect
--- NOTE | 2018-09-09 14:09 | Fluoroscopy Report ---
VIDEO SWALLOW STUDY CLINICAL HISTORY: Aspiration. COMPARISON STUDY: No priors. Fluoroscopy time: 2.6 minutes. FINDINGS: Fluoroscopic guidance is provided to the Department of speech pathology in performing a vid eo swallow study. The patient consumed barium-impregnated pudding, cracker with paste, nectar thick l iquid, and thin barium while the swallowing mechanism was observed in real-time. Pharyngeal penetrati on was seen with thin barium. No aspiration was seen with any of the sampled textures. IMPRESSION: 1. There is pharyngeal penetration identified with thin barium. 2. No aspiration was seen with any of the sampled textures. 3. See dedicated speech pathology report for detailed findings and recommendations. Dictated: 09/09/2018 2:06 PM Transcribed: 09/09/2018 2:09 PM Domonique [id number] [email or web address] Electronically signed by: Gio Fletcher M.D. 09/09/2018 2:16 PM
--- NOTE | 2018-09-09 16:57 | Hospitalist Progress Note ---
Date of Service September 09, 2018 Assessment & Plan (1) Acute respiratory failure with hypoxia: Secondary to pneumonia resolved with treatment breathing room air for several days, no distress (2) Pneumonia: Suggestion on CT scan to be in the right upper lobe area there is some fluid in the fissure and pulmonary nodule also noted which is chronic continue to treat with Zosyn IV afebrile, WBC low at 3k change to Augmentin this evening repeat CBC in the AM (3) Encephalopathy: - metabolic encephalopathy secondary to pneumonia resolved with antibiotics - BCx - no growth - Chest CTA reviewed and suggestive of RUL pneumonia - Check CT head/brain w/o contrast - no abnormalities - O2 sats were 88% on arrival, now she is >90% on room air - Flu swab negative - PT/OT cassius patient's family plans are to return to [place] for subacute rehab denied by insurance, family to appeal (4) Hyponatremia: - Mild hyponatremia with Na+ 130 on admission improved to 140, thus hyponatremia resolved likely poor solute intake as well as dehydration, infection (5) Cancer of right lung: - Follows with Dr. Pulido as outpatient, oncology consulted - Imaging of the chest, chemotherapy per oncology. - Most recent chemo was Aug 05 and was a reduced dose. Finished radiation therapy about 1 mo ago. Nu has some residual radiation pneumonitis. - Continue using magic swizzle to aid in swallowing as pt notes burning sensation in her throat. Continue soft diet. (6) COPD (chronic obstructive pulmonary disease): - Hx of such, stable, no acute exacerbation (7) Asthma: - Chronic, stable, no acute exacerbation - Continue symbicort and proventil (8) Hypertension: - Continue asa 81 mg, diltiazem 180 mg daily, lasix 40 mg daily for lower extremity swelling, losartan 75 mg daily, - HH diet (9) Hyperlipidemia: (10) Anxiety: (11) Depression: - Stable, continue paxil 20 mg QAM - holding alprazolam with hypoxia on presentation. 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 (12) Sarcopenia: - Albumin decreased - Order protein supplementation for snacks between meals and HS. - If pt not able to drink this much then at least give at bedtime. (13) Chronic pain: - Continue tramdol 50 mg Q6H prn, has been using q6h scheduled as outpatient. - Continue hydromet 5 ml Po Q4H po prn (14) DVT prophylaxis: teds, scds, lovenox subq PT/OT, plan for [facility] will need to appeal since insurance denied rehab back up plan is to go home with home health and therapy Subjective patient seen with her daughter at the bedside this morning discussed with case management in the room as well she was denied rehab at [facility], family to appeal video swallow today, showed penetration with thin liquids diet placed by speech therapy, mince moist, slippery diet labs reviewed, WBC up to 3k today, no neutropenia vitals stable, breathing well Review of Systems All systems reviewed & are unremarkable except as noted in HPI & below Constitutional: + weakness; no fever and no sweats Respiratory: + cough and + dyspnea on exertion; no hemoptysis, no pain on inspiration and no sputum production Gastrointestinal: no abdominal pain, no nausea, no vomiting, no constipation and no diarrhea/loose stools Physical Exam Vital Signs (Past 24 Hours): Last Vital Signs Temp 37.0 C 09/09/18 15:40 Pulse 98 H 09/09/18 15:40 Resp 18 09/09/18 15:40 BP 118/68 09/09/18 15:40 Pulse Ox 92 09/09/18 15:40 Constitutional: WD/WN, vitals as above Eyes: PERRL, conjunctivae normal, anicteric sclerae ENMT: external ear and nose normal, oropharynx normal Neck: trachea midline, no thyromegaly Respiratory: normal respiratory effort and + cough; no respiratory distress Auscultation: no crackles and no rhonchi Cardiovascular: RRR, no murmur, no edema Gastrointestinal (Abdomen): normal bowel sounds, soft, nontender, no hepatosplenomegaly Musculoskeletal: no cyanosis or clubbing, extremities motor strength 5/5 Skin: no rashes, warm and dry Neurologic: patellar DTR's 2+ bilat, sensation intact and PERRL, EOMI, accommodation nl, no face palsy, no dysarthria Psychiatric: A+Ox3, euthymic affect Lymphatic: no cervical or axillary lymphadenopathy Results & Data Laboratory Results Laboratory Results - last 24 hr 09/09/18 11:23 WBC 3.16 L RBC 2.85 L Hgb 9.5 L Hct 27.1 L MCV 95.1 MCH 33.3 MCHC 35.1 RDW Std Deviation 53.7 H RDW Coeff of Filemon 15.6 H Plt Count 249 MPV 8.3 Immature Gran % (Auto) 2.8 Neut % (Auto) 64.9 Lymph % (Auto) 16.1 [facility] % (Auto) 14.9 Eos % (Auto) 1.3 Baso % (Auto) 0.0 Immature Gran # (Auto) 0.09 H Neut # (Auto) 2.05 Lymph # (Auto) 0.[address] [facility] # (Auto) 0.47 Eos # (Auto) 0.04 Baso # (Auto) 0.00 Diagnostic Findings VIDEO SWALLOW STUDY CLINICAL HISTORY: Aspiration. COMPARISON STUDY: No priors. Fluoroscopy time: 2.6 minutes. FINDINGS: Fluoroscopic guidance is provided to the Department of speech pathology in performing a video swallow study. The patient consumed barium- impregnated pudding, cracker with paste, nectar thick liquid, and thin barium while the swallowing mechanism was observed in real-time. Pharyngeal penetration was seen with thin barium. No aspiration was seen with any of the sampled textures. IMPRESSION: 1. There is pharyngeal penetration identified with thin barium. 2. No aspiration was seen with any of the sampled textures. 3. See dedicated speech pathology report for detailed findings and recommendations. Medications Administered Current Inpatient Medications Acetaminophen (Tylenol) 650 mg PO Q4H PRN PRN Reason: Moderate Pain Stop: 10/05/18 17:34 Albuterol (Duoneb) 3 ml INH QIDR ERICK[facility] Stop: 10/05/18 19:59 Last Admin: 09/09/18 15:07 Dose: 3 ml Documented by: Albuterol (Ventolin Hfa) 2 puffs INH Q6H PRN PRN Reason: Shortness Of Breath Stop: 10/05/18 17:34 Aspirin (Ecotrin Ectab) 81 mg PO QAM [facility] Stop: 10/06/18 08:59 Last Admin: 09/09/18 07:44 Dose: 81 mg Documented by: Atorvastatin Calcium (Lipitor) 20 mg PO QPM [facility] Stop: 10/05/18 20:59 Last Admin: 09/08/18 21:41 Dose: 20 mg Documented by: Budesonide/Formoterol Fumarate (Symbicort 160mcg/4.5mcg) 1 puffs INH BID [facility] Stop: 10/05/18 20:59 Last Admin: 09/09/18 07:43 Dose: 1 puffs Documented by: Al Hydrox/Mg Hydrox/Simethicone 50 ml/Diphenhydramine HCl 125 mg/Lidocaine HCl 40 ml/Sucralfate 10,000 mg/ BARCODE IDENTIFIER 1 ea 0 ml PO Q8H PRN PRN Reason: Sore Throat Stop: 10/05/18 21:01 Last Admin: 09/06/18 00:05 Dose: 5 ml Documented by: Diltiazem HCl (Cardizem Cd) 180 mg PO DAILY [facility] Stop: 10/06/18 08:59 Last Admin: 09/09/18 07:44 Dose: 180 mg Documented by: Enoxaparin Sodium (Lovenox) 40 mg SQ Q24H [facility] Stop: 10/05/18 20:59 Last Admin: 09/08/18 21:40 Dose: 40 mg Documented by: Furosemide (Lasix) 40 mg PO DAILY [facility] Stop: 10/06/18 08:59 Last Admin: 09/09/18 07:44 Dose: 40 mg Documented by: Hydrocodone Bit/Homatropine Methylb (Hycodan) 5 ml PO Q4H PRN PRN Reason: Cough Stop: 09/19/18 17:34 Last Admin: 09/06/18 04:51 Dose: 5 ml Documented by: Piperacillin Sod/Tazobactam (Sod 3.375 gm/ Dextrose) 115 mls @ 28.75 mls/hr IV Q8H [facility] Stop: 09/12/18 13:59 Last Infusion: 09/09/18 15:53 Dose: Infused Documented by: Losartan Potassium (Cozaar) 75 mg PO QAM [facility] Stop: 10/06/18 08:59 Last Admin: 09/09/18 07:45 Dose: 75 mg Documented by: Miscellaneous Information (Consult) 1 ea N/A UD PRN PRN Reason: Consult Stop: 10/05/18 17:34 Multivitamins (Multivitamin Tab) 1 tab PO QAM [facility] Stop: 10/06/18 08:59 Last Admin: 09/09/18 07:44 Dose: 1 tab Documented by: Ondansetron HCl (Zofran) 4 mg IV Q4H PRN PRN Reason: Nausea And Vomiting Stop: 10/05/18 17:34 Last Admin: 09/07/18 18:51 Dose: 4 mg Documented by: Pantoprazole Sodium (Protonix) 40 mg PO BID [facility] Stop: 10/05/18 20:59 Last Admin: 09/09/18 07:44 Dose: 40 mg Documented by: Paroxetine HCl (Paxil) 20 mg PO QAM [facility] Stop: 10/06/18 08:59 Last Admin: 09/09/18 07:45 Dose: 20 mg Documented by: Tramadol HCl (Ultram) 50 mg PO Q8H PRN PRN Reason: pain Stop: 10/05/18 17:34 Last Admin: 09/07/18 09:51 Dose: 50 mg Documented by: (1) Pneumonia Laterality: right Lung location: lower lobe of lung Pneumonia type: due to unspecified organism Qualified Code(s): J18.1 - Lobar pneumonia, unspecified organism
[2018-09-09] MEDS: AMOXICILLIN/CLAVULANATE 875 MG TAB PO SCH (18:48)
[2018-09-09] MEDS: ENOXAPARIN INJ 40 MG/0.4 ML SYR SQ SCH (20:26)
[2018-09-09] MEDS: ATORVASTATIN 20 MG TAB PO SCH (20:26)
[2018-09-09] MEDS: ONDANSETRON INJ 2 MG/ML 2 ML VIAL IV PRN (22:37)
[2018-09-10 06:13] LABS: Basophils # (auto) 0.01 K/uL (0-0.2); Basophils % (auto) 0.3 %; Eosinophils # (auto) 0.04 K/uL (0-0.5); Eosinophils % (auto) 1.2 %; Hematocrit (blood only) 29.3 % (37-47); Hemoglobin 10.2 g/dL (12.0-16.0); Immature Granulocytes # (auto) 0.13 K/uL (0.00-0.02); Lymphocytes # (auto) 0.41 K/uL (1.2-3.4); Lymphocytes % (auto) 12.8 %; Mean Corpuscular Hgb Conc 34.8 g/dL (32-36); Mean Corpuscular Volume 93.3 fL (80-100); Mean Platelet Volume 8.7 fL (7.4-10.4); Monocytes # (auto) 0.58 K/uL (0.11-0.59); Monocytes % (auto) 18.1 %; Neutrophils # (auto) 2.04 K/uL (1.4-6.5); Neutrophils % (auto) 63.6 %; Platelet Count 264 K/uL (130-400); RDW Coefficient of Variation 15.7 % (11.5-14.5); RDW Standard Deviation 53.7 fL (36.4-46.3); Red Blood Count 3.14 M/uL (4.2-5.4); White Blood Count 3.21 K/uL (4.8-10.8)
[2018-09-10 06:51] LABS: BUN Creatinine Ratio 5.9 (10-20); Calcium 8.8 mg/dl (8.5-10.1); Creatinine Clr Calc Pharmacy 46.4 ml/min; Est GFR (African American) 68.9; Est GFR (Non-African American) 59.4
[2018-09-10] MEDS: ALBUT/IPRATROP 3MG/0.5MG NEB 3 ML VIAL INH SCH ×4 (07:24→19:51)
[2018-09-10] MEDS: PARoxetine HCl 20 MG TAB PO SCH (08:03)
[2018-09-10] MEDS: MULTIVITAMIN TAB PO SCH (08:03)
[2018-09-10] MEDS: PANTOprazole 40 MG TAB PO SCH ×2 (08:03→20:17)
[2018-09-10] MEDS: dilTIAZem HCL 180 MG CAPCR PO SCH (08:04)
[2018-09-10] MEDS: ASPIRIN 81 MG ECTAB PO SCH (08:04)
[2018-09-10] MEDS: FUROSEMIDE 40 MG TAB PO SCH (08:04)
[2018-09-10] MEDS: LOSARTAN POTASSIUM 25 MG TAB PO SCH (08:04)
[2018-09-10] MEDS: AMOXICILLIN/CLAVULANATE 875 MG TAB PO SCH ×2 (08:05→17:15)
[2018-09-10] MEDS: BUDESONIDE/FORMOTEROL FUMARATE 160/4.5 60 PUFFS/INHALER INH SCH ×2 (08:05→20:18)
[2018-09-10] MEDS: POTASSIUM CHLORIDE 20 MEQ TABCR PO SCH ×3 (08:22→20:17)
--- NOTE | 2018-09-10 15:50 | Hospitalist Progress Note ---
Date of Service September 10, 2018 Assessment & Plan (1) Acute respiratory failure with hypoxia: Secondary to pneumonia resolved with treatment breathing room air for several days, no distress (2) Pneumonia: Suggestion on CT scan to be in the right upper lobe area there is some fluid in the fissure and pulmonary nodule also noted which is chronic continue to treat with Zosyn IV afebrile, WBC low at 3k change to Augmentin on 09/09 complete 4 more days of Augmentin on discharge (3) Dysphagia: video swallow done 09/09 recommend slippery diet, frequent moistening of foods straws okay avoid doughy, pasty foods that could be difficult to swallow sit upright for 30 minutes after eating sleep with HOB elevated at 30 degrees (4) Hypokalemia: low at 3.0 will add PO replacement, repeat tomorrow (5) Encephalopathy: - metabolic encephalopathy secondary to pneumonia resolved with antibiotics - BCx - no growth - Chest CTA reviewed and suggestive of RUL pneumonia - Check CT head/brain w/o contrast - no abnormalities - O2 sats were 88% on arrival, now she is >90% on room air - Flu swab negative - PT/OT cassius patient's family plans are to return to [place] for subacute rehab will go there tomorrow morning (6) Hyponatremia: - Mild hyponatremia with Na+ 130 on admission improved to 140, thus hyponatremia resolved likely poor solute intake as well as dehydration, infection (7) Cancer of right lung: - Follows with Dr. Pulido as outpatient, oncology consulted - Imaging of the chest, chemotherapy per oncology. - Most recent chemo was Aug 05 and was a reduced dose. Finished radiation therapy about 1 mo ago. Nu has some residual radiation pneumonitis. - Continue using magic swizzle to aid in swallowing as pt notes burning sensation in her throat. Continue soft diet. (8) COPD (chronic obstructive pulmonary disease): - Hx of such, stable, no acute exacerbation (9) Asthma: - Chronic, stable, no acute exacerbation - Continue symbicort and proventil (10) Hypertension: - Continue asa 81 mg, diltiazem 180 mg daily, lasix 40 mg daily for lower extremity swelling, losartan 75 mg daily, - HH diet (11) Hyperlipidemia: (12) Anxiety: (13) Depression: - Stable, continue paxil 20 mg QAM - holding alprazolam with hypoxia on presentation. 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 (14) Sarcopenia: - Albumin decreased - Order protein supplementation for snacks between meals and HS. - If pt not a ble to drink this much then at least give at bedtime. (15) Chronic pain: - Continue tramdol 50 mg Q6H prn, has been using q6h scheduled as outpatient. - Continue hydromet 5 ml Po Q4H po prn (16) DVT prophylaxis: teds, scds, lovenox subq PT/OT, plan for [place] rehab will go tomorrow Subjective patient doing well, sitting up in chair, strength is good labs stable eating better discussed with CM, can go to [place] tomorrow daughter will transport at 10am Review of Systems All systems reviewed & are unremarkable except as noted in HPI & below Physical Exam Vital Signs (Past 24 Hours): Last Vital Signs Temp 37.1 C 09/10/18 15:05 Pulse 96 H 09/10/18 15:21 Resp 16 09/10/18 15:21 BP 114/66 09/10/18 15:05 Pulse Ox 93 09/10/18 15:21 Constitutional: WD/WN, vitals as above Eyes: PERRL, conjunctivae normal, anicteric sclerae ENMT: external ear and nose normal, oropharynx normal Neck: trachea midline, no thyromegaly Respiratory: normal respiratory effort and + cough; no respiratory distress Auscultation: no crackles and no rhonchi Cardiovascular: RRR, no murmur, no edema Gastrointestinal (Abdomen): normal bowel sounds, soft, nontender, no hepatosplenomegaly Musculoskeletal: no cyanosis or clubbing, extremities motor strength 5/5 Skin: no rashes, warm and dry Neurologic: patellar DTR's 2+ bilat, sensation intact and PERRL, EOMI, accommodation nl, no face palsy, no dysarthria Psychiatric: A+Ox3, euthymic affect Lymphatic: no cervical or axillary lymphadenopathy Results & Data Laboratory Results Laboratory Results - last 24 hr 09/10/18 09/10/18 05:50 05:50 WBC 3.21 L RBC 3.14 L Hgb 10.2 L Hct 29.3 L MCV 93.3 MCH 32.5 MCHC 34.8 RDW Std Deviation 53.7 H RDW Coeff of Filemon 15.7 H Plt Count 264 MPV 8.7 Immature Gran % (Auto) 4.0 Neut % (Auto) 63.6 Lymph % (Auto) 12.8 [facility] % (Auto) 18.1 Eos % (Auto) 1.2 Baso % (Auto) 0.3 Immature Gran # (Auto) 0.13 H Neut # (Auto) 2.04 Lymph # (Auto) 0.41 L [facility] # (Auto) 0.58 Eos # (Auto) 0.04 Baso # (Auto) 0.01 Sodium 137 Potassium 3.0 L D Chloride 99 Carbon Dioxide 29 Anion Gap 9.0 BUN 6 L Creatinine 0.95 Est Cr Clr Drug Dosing 46.4 Est GFR ( Amer) 68.9 Est GFR (Non-Af Amer) 59.4 BUN/Creatinine Ratio 5.9 L Glucose 102 H Calcium 8.8 Medications Administered Current Inpatient Medications Acetaminophen (Tylenol) 650 mg PO Q4H PRN PRN Reason: Moderate Pain Stop: 10/05/18 17:34 Albuterol (Duoneb) 3 ml INH QIDR [facility] Stop: 10/05/18 19:59 Last Admin: 09/10/18 19:51 Dose: 3 ml Documented by: Albuterol (Ventolin Hfa) 2 puffs INH Q6H PRN PRN Reason: Shortness Of Breath Stop: 10/05/18 17:34 Amoxicillin/Clavulanate Potassium (Augmentin 875mg) 1 tab PO BIDM [facility] Stop: 09/16/18 17:29 Last Admin: 09/10/18 17:15 Dose: 1 tab Documented by: Aspirin (Ecotrin Ectab) 81 mg PO QAM [facility] Stop: 10/06/18 08:59 Last Admin: 09/10/18 08:04 Dose: 81 mg Documented by: Atorvastatin Calcium (Lipitor) 20 mg PO QPM [facility] Stop: 10/05/18 20:59 Last Admin: 09/10/18 20:18 Dose: 20 mg Documented by: Budesonide/Formoterol Fumarate (Symbicort 160mcg/4.5mcg) 1 puffs INH BID [facility] Stop: 10/05/18 20:59 Last Admin: 09/10/18 20:18 Dose: 1 puffs Documented by: Al Hydrox/Mg Hydrox/Simethicone 50 ml/Diphenhydramine HCl 125 mg/Lidocaine HCl 40 ml/Sucralfate 10,000 mg/ [employer] IDENTIFIER 1 ea 0 ml PO Q8H PRN PRN Reason: Sore Throat Stop: 10/05/18 21:01 Last Admin: 09/06/18 00:05 Dose: 5 ml Documented by: Diltiazem HCl (Cardizem Cd) 180 mg PO DAILY [facility] Stop: 10/06/18 08:59 Last Admin: 09/10/18 08:04 Dose: 180 mg Documented by: Enoxaparin Sodium (Lovenox) 40 mg SQ Q24H [facility] Stop: 10/05/18 20:59 Last Admin: 09/10/18 20:17 Dose: 40 mg Documented by: Furosemide (Lasix) 40 mg PO DAILY [facility] Stop: 10/06/18 08:59 Last Admin: 09/10/18 08:04 Dose: 40 mg Documented by: Hydrocodone Bit/Homatropine Methylb (Hycodan) 5 ml PO Q4H PRN PRN Reason: Cough Stop: 09/19/18 17:34 Last Admin: 09/06/18 04:51 Dose: 5 ml Documented by: Losartan [facility]) [facility] Stop: 10/06/18 08:59 Last Admin: 09/10/18 08:04 Dose: 75 mg Documented by: Multivitamins (Multivitamin Tab) 1 tab PO QAM [facility] Stop: 10/06/18 08:59 Last Admin: 09/10/18 08:03 Dose: 1 tab Documented by: Ondansetron HCl (Zofran) 4 mg IV Q4H PRN PRN Reason: Nausea And Vomiting Stop: 10/05/18 17:34 Last Admin: 09/09/18 22:37 Dose: 4 mg Documented by: Pantoprazole Sodium (Protonix) 40 mg PO BID [facility] Stop: 10/05/18 20:59 Last Admin: 09/10/18 20:17 Dose: 40 mg Documented by: Paroxetine HCl (Paxil) 20 mg PO QAM [facility] Stop: 10/06/18 08:59 Last Admin: 09/10/18 08:03 Dose: 20 mg Documented by: Potassium Chloride (Klor-Con M20) 20 meq PO TID [facility] Stop: 10/10/18 08:59 Last Admin: 09/10/18 20:17 Dose: 20 meq Documented by: Tramadol HCl (Ultram) 50 mg PO Q8H PRN PRN Reason: pain Stop: 10/05/18 17:34 Last Admin: 09/07/18 09:51 Dose: 50 mg Documented by: (1) Pneumonia Laterality: right Lung location: lower lobe of lung Pneumonia type: due to unspecified organism Qualified Code(s): J18.1 - Lobar pneumonia, unspecified organism
[2018-09-10] MEDS: ENOXAPARIN INJ 40 MG/0.4 ML SYR SQ SCH (20:17)
[2018-09-10] MEDS: ATORVASTATIN 20 MG TAB PO SCH (20:18)
[2018-09-11 03:52] VITALS: TEMP 98.1
[2018-09-11] MEDS: ALBUT/IPRATROP 3MG/0.5MG NEB 3 ML VIAL INH SCH (07:28)
[2018-09-11 07:33] VITALS: O2SAT 93
[2018-09-11] MEDS: ASPIRIN 81 MG ECTAB PO SCH (08:27)
[2018-09-11] MEDS: FUROSEMIDE 40 MG TAB PO SCH (08:27)
[2018-09-11] MEDS: POTASSIUM CHLORIDE 20 MEQ TABCR PO SCH (08:27)
[2018-09-11] MEDS: BUDESONIDE/FORMOTEROL FUMARATE 160/4.5 60 PUFFS/INHALER INH SCH (08:27)
[2018-09-11] MEDS: PANTOprazole 40 MG TAB PO SCH (08:28)
[2018-09-11] MEDS: LOSARTAN POTASSIUM 25 MG TAB PO SCH (08:28)
[2018-09-11] MEDS: MULTIVITAMIN TAB PO SCH (08:28)
[2018-09-11] MEDS: AMOXICILLIN/CLAVULANATE 875 MG TAB PO SCH (08:29)
[2018-09-11] MEDS: PARoxetine HCl 20 MG TAB PO SCH (08:29)
[2018-09-11] MEDS: dilTIAZem HCL 180 MG CAPCR PO SCH (08:29)
--- NOTE | 2018-09-11 08:47 | Discharge Summary ---
Date of Service September 11, 2018 Admission HPI Per Admitting Provider This is a 73 yo F with PMHx of right lung cancer originally diagnosed in 2012, s/p chemotherapy and radiation therapy. Most recent chemotherapy was Aug 05 where she completed the second round of paclitaxel, this most recent chemo was a reduced dose. Other PMHx includes COPD, remote smoking hx 40 yrs ago with 1 ppd x 15 yrs, HTN, HLD< anxiety, depression. Pt was recently admitted from 08/13- 08/22 at our facility due to neutropenic sepsis secondary to cellulitis and radiation pneumonitis. She was treated with a IV antibiotics including vancomycin and cefepime, then transitioned to oral levaquin to total a 10 day course. She was also treated with steroids and supportive care and cellulitis resolved. Today the patient presents with new onset of slight altered mental status, unsteady gait, change in behavior per family, and increased weakness during ambulation with a walker. Pt is very nonspecific with her ROS. Daughter is present at bedside and reports 3 weeks ago the patient was living at home taking care of her own 90+ yo mother who has dementia. She was brought here from [place], where she was completing outpatient therapy. She was scheduled for her discharge evaluation this week however didn't get to that point due to todays new events. Pt was reported to have a 100.4 temperature as an outpatient but was sitting beside a heater. Pt denies fever, chills or sweats. Admission Exam Per Admitting Provider General: awake, alert, no apparent distress, able to answer all questions appropriately although some responses are slow. Head: Normocephalic, atraumatic ENT: PERRL, EOMI, no pharyngeal exudate, no mucositis, mucous membranes moist Chest: + Diminished breath sounds throughout, on 2L via NC, no adventitious breath sounds Cardiac: Regular rate and rhythm, no murmur, no JVD, normal peripheral pulses, good capillary refill Abdominal: NABS x 4 quadrants, soft, nontender to palpation, no rebound, guarding or tenderness Extremities: Normal inspection, 2+ bilateral peripheral edema with minimal mild erythema on the LLE, calfs nontender to palpation Psych: Normal mood and affect Neuro: AAO x 3, strength intact bilaterally and related 5/5, no motor deficits, speech is clear but slightly slowed, no peripheral sensory deficits Principal Diagnosis Pneumonia Discharge Exam Constitutional WD/WN, vitals as above Eyes PERRL, conjunctivae normal, anicteric sclerae ENMT external ear and nose normal, oropharynx normal Neck trachea midline, no thyromegaly Respiratory normal respiratory effort and + cough; no respiratory distress Auscultation: no crackles and no rhonchi Cardiovascular RRR, no murmur, no edema Gastrointestinal (Abdomen) normal bowel sounds, soft, nontender, no hepatosplenomegaly Musculoskeletal no cyanosis or clubbing, extremities motor strength 5/5 Skin no rashes, warm and dry Neurologic patellar DTR's 2+ bilat, sensation intact and PERRL, EOMI, accommodation nl, no face palsy, no dysarthria Psychiatric A+Ox3, euthymic affect Lymphatic no cervical or axillary lymphadenopathy Discharge Data Allergies Allergy/AdvReac Type Severity Reaction Status Date / Time hydrochlorothiazide AdvReac Intermediate DIZZY, Verified 09/05/18 11:56 "LOOPY" FEELING Consultations 09/05/18 13:59 ED Decision to Admit Stat 09/05/18 17:35 Consult Case Management - Discharge Planning Routine Consult Oncology Routine Consult Pulmonology Routine Ordered Studies 09/05/18 12:44 CT angio chest PE protocol Stat 09/05/18 15:09 CT head/brain wo con Stat 09/09/18 13:15 FL video swallow Routine Hospital Course (1) Acute respiratory failure with hypoxia: Secondary to pneumonia resolved with treatment breathing room air for several days, no distress (2) Pneumonia: Suggestion on CT scan to be in the right upper lobe area there is some fluid in the fissure and pulmonary nodule also noted which is chronic continue to treat with Zosyn IV afebrile, WBC low at 3k change to Augmentin on 09/09 complete 4 more days of Augmentin on discharge (3) Dysphagia: video swallow done 09/09 recommend slippery diet, frequent moistening of foods straws okay avoid doughy, pasty foods that could be difficult to swallow sit upright for 30 minutes after eating sleep with HOB elevated at 30 degrees (4) Hypokalemia: resolved with PO replacement (5) Encephalopathy: - metabolic encephalopathy secondary to pneumonia resolved with antibiotics - BCx - no growth - Chest CTA reviewed and suggestive of RUL pneumonia - Check CT head/brain w/o contrast - no abnormalities - O2 sats were 88% on arrival, now she is >90% on room air - Flu swab negative - PT/OT cassius patient's family plans are to return to [place] for subacute rehab will go there tomorrow morning (6) Hyponatremia: - Mild hyponatremia with Na+ 130 on admission improved to 140, thus hyponatremia resolved likely poor solute intake as well as dehydration, infection (7) Cancer of right lung: - Follows with Dr. Pulido as outpatient, oncology consulted - Imaging of the chest, chemotherapy per oncology. - Most recent chemo was Aug 05 and was a reduced dose. Finished radiation therapy about 1 mo ago. Nu has some residual radiation pneumonitis. - Continue using magic swizzle to aid in swallowing as pt notes burning sensation in her throat. Continue soft diet. recommend follow up with Dr. Pulido in 2 weeks (8) COPD (chronic obstructive pulmonary disease): - Hx of such, stable, no acute exacerbation (9) Asthma: - Chronic, stable, no acute exacerbation - Continue symbicort and proventil (10) Hypertension: - Continue asa 81 mg, diltiazem 180 mg daily, lasix 40 mg daily for lower extremity swelling, losartan 75 mg daily, - HH diet (11) Hyperlipidemia: (12) Anxiety: (13) Depression: - Stable, continue paxil 20 mg QAM - holding alprazolam with hypoxia on presentation. DIRECT[employer]ANGUAGE 0.25 mg BID prn, pt is not needing this as often. (14) Sarcopenia: - Albumin decreased - Order protein supplementation for snacks between meals and HS. - If pt not able to drink this much then at least give at bedtime. (15) Chronic pain: - Continue tramdol 50 mg Q6H prn, has been using q6h scheduled as outpatient. - Continue hydromet 5 ml Po Q4H po prn (16) DVT prophylaxis: teds, scds, lovenox subq PT/OT, plan for [facility] rehab will go tomorrow Total Time Total Time Spent Total Time Spent (In Minutes): 35 minutes Total Time Includes: Examination of the Patient, Discharge Planning and Medication Reconciliation Discharge Plan Discharge Items Patient Disposition: Transfer Inpatient Rehab Fac Reason For Visit: HYPOXIA, AMS Discharge Diagnosis: Pneumonia Acute respiratory failure Lung cancer Condition: Good Discharge Goals: Improve disease control and Improve function Activity: Resume your previous activity Lifting: None Bathing: No limitations Exercise/Sports: Gradually increase as tolerated Driving/Machine Use: No limitations Non-emergency contact: Primary Care Provider and Oncologist Call non-emergency contact if: you have any medication questions, your symptoms worsen, your pain is not controlled and you have a fever Follow-up/Referrals: Ari Renee DO [Primary Care Provider] - Diet: Regular Addtl Provider Instructions: Medications: - AUGMENTIN: take twice a day for four more days Pneumonia: responded well to Zosyn IV, transitioned to Augmentin no fever, WBC normal, breathing well on room air complete four more days of treatment Dysphagia, difficulty swallowing, see the recommendations from speech therapy on instructions Prescriptions: New amoxicillin-pot clavulanate 875-125 mg Tablet 1 tab PO BIDM 4 Days Qty: 8 RF: 0 Continued sucralfate [Carafate] 100 mg/mL suspension 5 ml PO QID Qty: 420 RF: 2 tramadol 50 mg tablet 50 mg PO Q8H PRN (Reason: pain) Qty: 30 RF: 0 multivitamin Tablet 1 tab PO QAM RF: 0 atorvastatin 20 mg Tablet 20 mg PO QPM RF: 0 ipratropium-albuterol 0.5 mg-3 mg(2.5 mg base)/3 mL Solution For Nebulization 3 ml INHALATION QID RF: 0 aspirin 81 mg Tablet,Delayed Release (Dr/Ec) 81 mg PO QAM RF: 0 alprazolam 0.25 mg Tablet 0.25 mg PO BID PRN (Reason: Anxiety) RF: 0 paroxetine HCl 20 mg Tablet 20 mg PO QAM RF: 0 lansoprazole [Prevacid] 15 mg Capsule,Delayed Release(Dr/Ec) 15 mg PO BID RF: 0 hydrocodone-homatropine [Hydromet] 5-1.5 mg/5 mL Syrup 5 ml PO Q4H PRN (Reason: Cough) RF: 0 albuterol sulfate [Proventil HFA] 90 mcg/actuation Hfa Aerosol Inhaler 2 puff INHALATION Q6H PRN (Reason: Shortness Of Breath) RF: 0 Symbicort 160-4.5 mcg/actuation Hfa Aerosol Inhaler 1 puff INHALATION BID RF: 0 furosemide 40 mg Tablet 40 mg PO DAILY 30 Days Qty: 30 RF: 0 losartan 25 mg Tablet 75 mg PO QAM 30 Days Qty: 90 RF: 0 diltiazem HCl [Cardizem CD] 180 mg capsule,extended release 24hr 180 mg PO DAILY 30 Days Qty: 30 RF: 0 Stand-Alone Forms: [facility] Discharge Orders: Discharge Order (Routine); Ordered 09/11/18 Ordered By: Louie Inman Admission Data Admit Date/Time: 09/05/18 15:29 Attending Provider: Louie Inmna Admit Provider: Eva Ardon Primary Care Provider: Ari Renee Other Providers: Elfego Ziegler ; Eva Ardon ; John Pulido V Service: Telemetry Medical
[2018-09-11 09:45] VITALS: BP 136/74
[2018-09-11 10:20] VITALS: PULSE 48
== END 2018-09-11 10:34 | DRG 193 ==
LOC: ED 11:13 → 2W 15:29 → SUATTDRO 15:29 → 2W 16:54

== ENCOUNTER 2018-10-10 17:08 | Inpatient (IN) ==
--- OUTSIDE RECORDS SUMMARY | 2018-10-10 17:11 | External Medical Summary | Continuity of Care Document ---
:1945 Author Name Melisa Fisher, Provider Address Unavailable Unavailable , Care Team Providers Name Role Phone Esteban Fisher, Alessio Unavailable [email or web address] ORTIZ, Vimal Unavailable [email or web address] Elfego Ziegler DO Unavailable [email or web address] Narcisa Curiel Unavailable [email or web address] BENITA MACKEY Unavailable Unavailable RAQUET, A Unavailable Unavailable Unavailable Unavailable Unavailable Problems Anxiety (300.00) (F41.9) Hypertension (401.9) (I10) Chest pain (786.50) (R07.9) Chest pain on breathing (786.52) (R07.1) Edema (782.3) (R60.9) Drug therapy continued (V58.69) (Z79.899) Anemia (285.9) (D64.9) Esophageal reflux (530.81) (K21.9) Difficulty swallowing (787.20) (R13.10) Dysphagia (787.20) (R13.10) Cancer of lung, upper lobe (162.3) (C34.10) Cough (786.2) (R05) Shortness of breath (786.05) (R06.02) Asthma (493.90) (J45.909) Acute bronchitis (466.0) (J20.9) Acute sinusitis (461.9) (J01.90) Atypical squamous cell changes of undete rmined significance favor dysplasia (796.9) 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 Refills: 0 Prevacid 15 MG Oral Capsule Delayed Release; TAKE 1 CAPSULE EVERY 12 HOURS. Refills: 0 Ventolin HFA 108 (90 Base) MCG/ACT Inhal ation Aerosol Solution; INHALE 2 PUFFS EVERY 4 HOURS NEEDED Start: 17-Jan-2012 Refills: 0 Ipratropium-Albuterol 0.5-2.5 (3) MG/3ML Inhalation Solution; USE 1 UNIT DOSE IN NEBULIZER 4 TIMES DAILY. Natalia Orellana Start: 25-Feb-2012 Quantity: 540 30 x 3 ML Plas Cont Refills: 5 Atorvastatin Calcium 20 MG Oral Tablet; TAKE 1 TABLET DAILY. Refills: 0 levoFLOXacin 500 MG Oral Tablet; TAKE 1 TABLET DAILY. STEPHANE Townsend Start: 15-Mar-2014 Quantity: 10 Refills: 0 Losartan Potassium TABS; TAKE 1 TABLET DAILY. Refills: 0 ALPRAZolam 0.25 MG Oral Tablet; Take 1-2 po q 6-8 hour s as needed. ANGEL Seymour Start: 09-Mar-2013 Quantity: 45 Refills: 0 Cardizem CD 120 MG Oral Capsule Extended Release 24 Hour; TAKE 1 CAPSULE ONCE DAILY. Refills: 0 Paxil 10 MG Oral Tablet; TAKE 1 TABLET DAILY DIRECTED. Refills: 0 predniSONE 10 MG Oral Tablet; Start by t aking 4 pills daily for 2 days and then decrease by 1/2 pill every 2 days until finished. #36 STEPHANE Townsend Start: 21-Apr-2012 Quantity: 36 Refills: 0 Cheratussin AC 100-10 MG/5ML Oral Syrup; TAKE 5 ML LAWSON RY 4 HOURS NEEDED. ANGEL Seymour Start: 15-Mar-2014 Quantity: 1 473 ML Bottle Refills: 0 Mucinex TBCR; TAKE 1 TABLET EVERY 12 HOURS NEEDED. Refills: 0 Symbicort 160-4.5 MCG/ACT Inhalation Aer osol; INHALE 2 PUFFS TWICE DAILY. RINSE MOUTH AFTER USE. Natalia Orellana Start: 30-Oct-2016 Quantity: 2 10.2 GM Inhaler Refills: 3 Hydromet 5-1.5 MG/5ML Oral Syrup; TAKE 5 ML EVERY 4 HO URS NEEDED. ANGEL Seymour Start: 19-Mar-2018 Quantity: 1 473 ML Bottle Refills: 0 predniSONE 10 MG Oral Tablet; Take 4 pil ls daily for 2 days, then 3 pills daily for 2 days, then 2 pills daily for 2 days, then 1 pill daily for 2 days. ANGEL Seymour Start: 07-Apr-2012 Quantity: 20 Refills: 0 Procedures History of Appendectomy Status: Complete d History of Hysterectomy Status: Complete d History of Bronchoscopy (Diagnostic) Sta tus: Completed Immunizations Influenza On: 2014 Prevnar 13 Intramuscular Suspension On: 2014 Fluzone High-Dose Intramuscular Suspension On: 2016 Fluzone High-Dose Intramuscular Suspension On: 15-May-2018 12 :49 Lot #: [id number], SANOFI PASTEUR Family History Unknown Family Member Family history of Pure Hypercholesterolemia Status: Active Comments: Family History Family history of Lung Cancer (V16.1) Status: Active Co mments: Family History Family history of Heart Disease (V17.49) Status: Active Comments: Family History Family history of Liver Cancer Status: Active Comments: Family History Grandmother Family history of Stroke Syndrome (V17.1) Status: Active Grandmother Family history of Diabetes Mellitus (V18.0) Status: Active Father Family history of Lung Cancer (V16.1) Status: Active Mother Family history of Heart Disease (V17.49) Status: Active Brother Family history of Liver Cancer Status: Active Social History - Smoking Status Former smoker Plan of Treatment Planned Observations Planned Goals not documented Results No Known Results Results not documented Encounters Appointment; Alessio Orellana M.D. 04-Sep-2018 9:45 Encounter Diagnosis: Problem not documented Appointment; Alessio Orellana M.D. 15-May-2018 11:15 Encounter Diagnosis: Problem not documented Appointment; Elfego Torres M.D. 07-Apr-2018 11:15 Encounter Diagnosis: Problem not documented Appointment; Elfego Torres M.D. 01-Apr-2018 11:30 Encounter Diagnosis: Problem not documented Appointment; Elfego Torres M.D. 24-Mar-2018 14:15 Encounter Diagnosis: Problem not documented Appointment; Alessio Orellana M.D. 19-Mar-2018 8:45 Encounter Diagnosis: Problem not documented Appointment; Alessio Orellana M.D. 06-Mar-2018 10:00 Encounter Diagnosis: Problem not documented Appointment; Alessio Orellana M.D. 30-Jan-2018 10:00 Encounter Diagnosis: Problem not documented Appointment; Alessio Orellana M.D. 15-Oct-2017 9:45 Encounter Diagnosis: Problem not documented Appointment; Alessio Orellana M.D. 03-Sep-2017 9:00 Encounter Diagnosis: Problem not documented Appointment; Viaml Seymour PA-C 29-Jul-2017 14:00 Encounter Diagnosis: Problem not documented Appointment; Vimal Seymour PA-C 08-Apr-2017 10:15 Encounter Diagnosis: Problem not documented Appointment; Vimal Seymour PA-C 24-Dec-2016 9:30 Encounter Diagnosis: Problem not documented Appointment; Vimal Seymour PA-C 30-Oct-2016 9:30 Encounter Diagnosis: Problem not documented
[2018-10-10] MEDS ORDERED: methylPREDNISolone 60 MG in SYRINGE 1 ML IV STA (17:23)
[2018-10-10] MEDS ORDERED: ALBUT/IPRATROP 3MG/0.5MG NEB 3 ML VIAL INH STA (17:23)
[2018-10-10] MEDS ORDERED: PIPERACILLIN/TAZOBACTAM 4.5 GM/120 ML BAG IV ONE (17:44)
--- NOTE | 2018-10-10 17:47 | XRay Report ---
SINGLE VIEW CHEST CLINICAL HISTORY: Dyspnea. FINDINGS: An AP, portable, upright chest radiograph is compared to study dated 09/07/2018 and correlat ed with chest CT dated 09/05/2018. The examination is degraded by portable technique and patient rotat ion. The heart is mildly enlarged, and there is atherosclerotic calcification of the thoracic aorta. The pulmonary vasculature is noncongested. Emphysema and chronic interstitial thickening are similar to previous. Postoperative change involving loss are noted in the right lung, and there is pleural f luid at the right lung base. There is patchy airspace consolidation seen in the right mid to upper yuliana ng. This is new from 09/07/2018. The left lung appears clear. No pneumothorax is seen. The skeletal st ructures are osteopenic. Postoperative change is noted in the right sided ribs. A left shoulder arthr oplasty is in place. Arthritic change is seen in the right shoulder. Thoracic scoliosis is noted. IMPRESSION: 1. Heart and likely, emphysema, and postoperative change from right-sided pulmonary resection are aga in noted. 2. There is patchy airspace consolidations in the right mid to upper lung. This is new from 09/07/2018 and likely represents pneumonia. Posttreatment change and/or recurrent tumor could appear similar an d clinical correlation will be required. 3. Pleural fluid is again noted in the right lung base. 4. The left lung appears clear. Electronically signed by: Gio Fletcher M.D. 10/10/2018 5:45 PM
[2018-10-10] MEDS ORDERED: methylPREDNISolone 125 MG/2 ML VIAL ONE (17:54)
[2018-10-10 18:17] LABS: Basophils # (auto) 0.01 K/uL (0-0.2); Basophils % (auto) 0.2 %; Eosinophils # (auto) 0.13 K/uL (0-0.5); Eosinophils % (auto) 2.3 %; Hematocrit (blood only) 25.6 % (37-47); Hemoglobin 8.6 g/dL (12.0-16.0); Immature Granulocytes # (auto) 0.01 K/uL (0.00-0.02); Immature Granulocytes % (auto) 0.2 %; Lymphocytes # (auto) 0.81 K/uL (1.2-3.4); Lymphocytes % (auto) 14.1 %; Mean Corpuscular Hgb Conc 33.6 g/dL (32-36); Mean Corpuscular Volume 94.8 fL (80-100); Mean Platelet Volume 8.8 fL (7.4-10.4); Monocytes # (auto) 0.71 K/uL (0.11-0.59); Monocytes % (auto) 12.4 %; Neutrophils # (auto) 4.07 K/uL (1.4-6.5); Neutrophils % (auto) 70.8 %; Platelet Count 419 K/uL (130-400); RDW Coefficient of Variation 16.2 % (11.5-14.5); White Blood Count 5.74 K/uL (4.8-10.8)
[2018-10-10 18:19] LABS: Albumin Level 2.2 gm/dl (3.4-5.0); BUN Creatinine Ratio 6.2 (10-20); Blood Urea Nitrogen 4 mg/dl (7-18); Calcium 8.2 mg/dl (8.5-10.1); Carbon Dioxide 32 mmol/L (21-32); Chloride 99 mmol/L (98-107); Est GFR (African American) 97.9; Est GFR (Non-African American) 84.5; Glucose 97 mg/dl (70-99); Magnesium 1.5 mg/dl (1.8-2.4); Potassium 2.9 mmol/L (3.5-5.1); Sodium 134 mmol/L (136-145)
[2018-10-10] MEDS ORDERED: MAGNESIUM SULFATE / D5W 1 GM/100 ML BAG IV ONE (18:21)
[2018-10-10] MEDS ORDERED: POTASSIUM CHLORIDE 20 MEQ TABCR PO STA (18:21)
[2018-10-10] MEDS ORDERED: POTASSIUM CHLORIDE / WTR 10 MEQ/100 ML PLCT IV ONE (18:21)
[2018-10-10] MEDS ORDERED: SODIUM CHLORIDE 0.9% 1000ML 1,000 ML IV ONE (18:22)
[2018-10-10 18:25] LABS: Alanine Aminotransferase 9 U/L (12-78); Albumin Globulin Ratio 0.6 (0.9-2); Alkaline Phosphatase 121 U/L (45-117); Aspartate Aminotransferase 10 U/L (15-37); Bilirubin,Total 0.3 mg/dl (0.2-1); Globulin 3.7 gm/dl (2.5-4.0); Total Protein 5.9 gm/dl (6.4-8.2); Troponin I < 0.015 ng/ml (0-0.045)
[2018-10-10 18:27] LABS: INR 1.2 (0.9-1.1); Partial Thromboplastin Ratio 1.1; Partial Thromboplastin Time 29.5 Seconds (21.0-31.0); Prothrombin Time 12.2 Seconds (9.0-12.0)
--- NOTE | 2018-10-10 18:28 | Emergency Department Note ---
Entered by Taz Meredith acting as a scribe for Gio Acharya MD History of Present Illness General Chief complaint: Arrhythmia/Palpitations Stated complaint: HIGH HEART RATE;LOW BLOOD PRESSURE Time Seen by Provider: 10/10/18 17:16 Source: patient and family History of Present Illness Onset (ago): week(s) 1 Location: chest (lungs) Pain Consistency: + other (persistent) Quality: + other (shortness of breath) Exacerbated By: + other (walking) Associated symptoms: + chest pain, + cough and + other (hypoxia); no fever/chills and no nausea/vomiting The patient is a 73 year old female with lung cancer who presents to the Emergency Room with complaints of persistent shortness of breath for the past week. The patient was discharged September 11 with a diagnosis of pneumonia. She states that she felt improved after discharge, but her shortness of breath has been worsening over the past week. She reports that she is coughing more than usual, and it is nonproductive. She notes chest pain over the past couple of days. She reports that when she walks her shortness of breath worsens but her chest pain remains unchanged. Daughter at bedside reports that the patients home health nurse found her oxygen saturation to be 80% on room air after a nebulizer treatment, and it decreased to the 70s after she walked. Pulmonology was called and the patient was referred to the ER. The patient states that she is not eating much due to difficulty swallowing, but she is drinking plenty of water. She denies fevers or vomiting. She states that she does not take blood thinners and denies a history of blood clots. The patient notes that after her second round of chemotherapy she developed neutropenia. She is soon to be placed on an immunosuppressant. She states that she is not currently on any antibiotics. Home Medications Home Medications Medication Instructions Recorded Confirmed Type Symbicort 1 puff INHALATION BID 03/27/18 10/10/18 History albuterol sulfate [Proventil HFA] 2 puff INHALATION Q6H PRN 03/27/18 10/10/18 History alprazolam 0.25 mg PO BID PRN 03/27/18 10/10/18 History aspirin 81 mg PO QAM 03/27/18 10/10/18 History atorvastatin 20 mg PO QPM 03/27/18 10/10/18 History ipratropium-albuterol 3 ml INHALATION QID 03/27/18 10/10/18 History lansoprazole [Prevacid] 15 mg PO BID 03/27/18 10/10/18 History multivitamin 1 tab PO QAM 03/27/18 10/10/18 History paroxetine HCl 20 mg PO QAM 03/27/18 10/10/18 History tramadol 50 mg tablet 50 mg PO Q8H PRN #30 tab 07/21/18 10/10/18 Rx diltiazem HCl [Cardizem CD] 180 mg PO DAILY 10/10/18 10/10/18 History furosemide 40 mg PO DAILY 10/10/18 10/10/18 History losartan 50 mg PO DAILY 10/10/18 10/10/18 History Allergies Allergy/AdvReac Type Severity Reaction Status Date / Time hydrochlorothiazide AdvReac Intermediate DIZZY, Verified 10/10/18 18:17 "LOOPY" FEELING Past Med/Surg History Medical History Sarcopenia Acute respiratory failure with hypoxia Encephalopathy Pneumonia (Acute) Neutropenic sepsis Hyponatremia (Acute) Cellulitis of left lower extremity (Acute) Cancer of right lung (Acute) 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 Radiation completed June 25, 2018. She received 6000 cGy. Difficult intubation LEFT FOOT RECONSTRUCTION= 12/28/16= GLIDESCOPE# 3 ETT 7.0 AT [facility] Hypertension (Chronic) Asthma (Chronic) COPD (chronic obstructive pulmonary disease) (Chronic) Hyperlipidemia (Chronic) Anxiety (Chronic) Depression (Chronic) Anemia (Chronic) Anxiety (Chronic) Asthma (Chronic) COPD (chronic obstructive pulmonary disease) (Chronic) Depression (Chronic) Dysphagia (Chronic) Hyperlipidemia (Chronic) Hypertension (Chronic) Irritable bowel disease (Chronic) Mediastinal lymphadenopathy (Chronic) Obesity (Chronic) Lung nodules Surgical History S/P appendectomy (Chronic) S/P hysterectomy (Chronic) H/O: hysterectomy (Acute) History of appendectomy (Resolved) as teenager History of bronchoscopy (Resolved) Multiple History of cataract surgery (Resolved) 2011 - Bilat History of colonoscopy (Resolved) 2017 Hx of abdominal hysterectomy (Resolved) 1972 Hx of foot surgery (Resolved) 2014 & 2017 - LEFT X2 Hx of repair of rotator cuff (Resolved) 2009 - RIGHT Hx of total shoulder replacement (Resolved) 2015 - LEFT Family History Mother Dementia Father , Passed age 67 of Lung Cancer (Heavy Smoker) Lung cancer Brother , Passed in 68 of Liver Cancer Liver cancer Brother , Passed in 60's of AR Heart attack Brother COPD (chronic obstructive pulmonary disease) Sister No problems noted. Son No problems noted. Son No problems noted. Son No problems noted. Son No problems noted. Daughter No problems noted. 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 Beliefs That Will Affect Care: None marital status: / Current Living Situation: Parent and Family Current Living Situation Comment: lives with mother and sister is staying presently current occupational status: retired current occupation: Retired from [employer] Other Information That Helps Us Care for You: No Feels Safe at Home: Yes Safety Concerns: Feels Safe At This Time Smoking Status: Former smoker Tobacco Type: cigarettes Cigarettes Per Day: 1 pack/week Second Hand Exposure: Yes (Not recent ) Hx Alcohol Use: No Hx Substance Use: No caffeine: Yes (1 pot of coffee/day ) Review of Systems See HPI for pertinent positives & negatives. and A total of 10 systems reviewed and were otherwise negative Physical Exam Vital Signs Vital Signs - 24 hr 10/10/18 17:10 10/10/18 17:15 10/10/18 17:38 Temperature 36.7 C Temperature Source Oral Sepsis Recent Fever Within 48 Hours No Sepsis New/Unexplained Change in Mental Status No Sepsis Action Taken by Nursing No Action Required Pulse Rate 107 H 107 H Pulse Rate [Right Brachial] Pulse Rate from SpO2 Sensor Respiratory Rate 22 32 H Respiratory Effort / Characteristics Blood Pressure 119/61 Blood Pressure [Right Arm] Blood Pressure Mean 80 Blood Pressure Mean [Right Arm] Blood Pressure Position Sitting Pulse Oximetry 80 L 93 Oxygen Delivery Method Room Air Nasal Cannula Oxygen Flow Rate 2 10/10/18 17:46 10/10/18 17:53 10/10/18 20:47 Temperature 37 C Temperature Source Oral Sepsis Recent Fever Within 48 Hours Sepsis New/Unexplained Change in Mental Status Sepsis Action Taken by Nursing Pulse Rate 127 H Pulse Rate [Right Brachial] 101 H Pulse Rate from SpO2 Sensor 108 H Respiratory Rate 25 H 20 Respiratory Effort / Characteristics Blood Pressure 108/69 Blood Pressure [Right Arm] 122/75 Blood Pressure Mean 82 Blood Pressure Mean [Right Arm] 90 Blood Pressure Position Pulse Oximetry 93 94 91 Oxygen Delivery Method Nasal Cannula Nasal Cannula Nasal Cannula Oxygen Flow Rate 2 2 2 10/10/18 20:56 10/10/18 22:01 Temperature Temperature Source Sepsis Recent Fever Within 48 Hours Sepsis New/Unexplained Change in Mental Status Sepsis Action Taken by Nursing Pulse Rate Pulse Rate [Right Brachial] 100 H Pulse Rate from SpO2 Sensor Respiratory Rate 20 Respiratory Effort / Characteristics Non-Labored Blood Pressure Blood Pressure [Right Arm] Blood Pressure Mean Blood Pressure Mean [Right Arm] Blood Pressure Position Pulse Oximetry 94 Oxygen Delivery Method Nasal Cannula Nasal Cannula Oxygen Flow Rate 2 2 GENERAL: Patient is in no acute distress. HEENT: No acute trauma, normocephalic atraumatic, mucous membranes moist, no nasal congestion, no scleral icterus. NECK: No stridor, no adenopathy, no meningismus, trachea is midline. LUNGS: Wheezing bilaterally with some scattered crackles. Wheezing and crackles worse on the right. Breath sounds diminished. No respiratory distress. HEART: 2/6 systolic murmur best heard best at the right sternal border, mildly tachycardic rate, regular rhythm. ABDOMEN: Soft, nontender, bowel sounds positive, no hernias, no peritonitis. EXTREMITIES: No cyanosis, mild bilateral pedal edema, full range of motion of all the joints without pain or difficulty, no signs for acute trauma. NEUROLOGIC: Oriented x 3, no acute motor or sensory deficits, no focal weakness. SKIN: Pale, no rash, no jaundice, no diaphoresis. Course 1718: The patient was evaluated in room B11B. A complete history and physical examination were performed. 1832: I updated the patient and family on results. 1834: I consulted Dr. Eng [facility] Hospitalist. The patient will be ree valuated for hospitalization. Administered Medications Albuterol (Duoneb) 3 ml NEB Q4R ERICKA Stop: 11/09/18 20:13 Last Admin: 10/10/18 22:01 Dose: 3 ml Documented by: [id number] Atorvastatin Calcium (Lipitor) 20 mg PO QPM ERICKA Stop: 11/09/18 20:59 Last Admin: 10/10/18 22:24 Dose: 20 mg Documented by: [id number] Budesonide/Formoterol Fumarate (Symbicort 160mcg/4.5mcg) 1 puffs INH BID ERICKA Stop: 11/09/18 20:59 Last Admin: 10/10/18 22:23 Dose: 1 puffs Documented by: [id number] Enoxaparin Sodium (Lovenox) 40 mg SQ Q24H [facility] Stop: 11/09/18 21:29 Last Admin: 10/10/18 22:25 Dose: 40 mg Documented by: [id number] Sodium Chloride (Nss 1000ml) 1,000 mls @ 80 mls/hr IV .[id number] [facility] Stop: 11/09/18 21:09 Last Admin: 10/10/18 21:47 Dose: 80 mls/hr Documented by: [id number] Methylprednisolone 40 mg/ (Syringe) 0.64 mls @ 1.5 mls/min IV BID ERICKA Stop: 11/09/18 20:59 Last Admin: 10/10/18 21:59 Dose: 1.5 mls/min Documented by: [id number] Cefepime HCl 2,000 mg/ Syringe 20 mls @ 5.5 mls/min IV Q12H [facility]; Protocol Stop: 10/17/18 21:59 Last Admin: 10/10/18 21:59 Dose: 5.5 mls/min Documented by: [id number] Potassium Chloride (K Jaylan / Wtr) 10 meq in 100 mls @ 100 mls/hr IV Q1H [facility] Stop: 10/11/18 00:14 Last Admin: 10/10/18 21:47 Dose: 100 mls/hr Documented by: [id number] Vancomycin HCl 1,750 mg/ (Sodium Chloride) 535 mls @ 200 mls/hr IV NOW ONE Stop: 10/11/18 00:10 Last Admin: 10/10/18 21:59 Dose: 200 mls/hr Documented by: [id number] Pantoprazole Sodium (Protonix) 40 mg PO BID ERICKA Stop: 11/09/18 20:59 Last Admin: 10/10/18 22:24 Dose: 40 mg Documented by: [id number] Potassium Chloride (Klor-Con M20) 20 meq PO BID ERICKA Stop: 10/11/18 21:01 Last Admin: 10/10/18 22:26 Dose: 20 meq Documented by: [id number] Discontinued Medications Albuterol (Duoneb) 3 ml INH NOW STA Stop: 10/10/18 17:24 Last Admin: 10/10/18 17:59 Dose: 3 ml Documented by: [id number] Methylprednisolone 60 mg/ (Syringe) 1.96 mls @ 1.5 mls/min IV NOW STA Stop: 10/10/18 17:24 Last Admin: 10/10/18 17:59 Dose: 1.5 mls/min Documented by: [id number] Piperacillin Sod/Tazobactam Sod (Zosyn) 4.5 gm in 120 mls @ 240 mls/hr IV NOW ONE Stop: 10/10/18 18:13 Last Infusion: 10/10/18 18:29 Dose: 0 mls/hr Documented by: [id number] Admin: 10/10/18 17:59 Dose: 240 mls/hr Documented by: [id number] Magnesium Sulfate/Dextrose (Magnesium Sulfate / D5w) 1 gm in 100 mls @ 100 mls/hr IV ONE ONE Stop: 10/10/18 19:20 Last Infusion: 10/10/18 19:52 Dose: 0 mls/hr Documented by: [id number] Admin: 10/10/18 18:43 Dose: 100 mls/hr Documented by: [id number] Potassium Chloride (K Jaylan / Wtr) 10 meq in 100 mls @ 100 mls/hr IV ONE ONE Stop: 10/10/18 19:20 Last Infusion: 10/10/18 19:30 Dose: 0 mls/hr Documented by: [id number] Admin: 10/10/18 18:30 Dose: 100 mls/hr Documented by: [id number] Sodium Chloride (Nss 1000ml) 1,000 mls @ 999 mls/hr IV .Q1H1M ONE Stop: 10/10/18 19:22 Last Infusion: 10/10/18 19:43 Dose: 0 mls/hr Documented by: [id number] Admin: 10/10/18 18:37 Dose: 999 mls/hr Documented by: [id number] Methylprednisolone (Solumedrol) Confirm Administered Dose 125 mg .ROUTE .STK-MED ONE Stop: 10/10/18 17:55 Last Admin: 10/10/18 17:59 Dose: Not Given Documented by: [id number] Potassium Chloride (Klor-Con M20) 40 meq PO NOW STA Stop: 10/10/18 18:22 Last Admin: 10/10/18 18:32 Dose: 40 meq Documented by: [id number] Medical Decision Making Differential Diagnosis Differential diagnosis: pneumonia, CHF, bronchitis, exacerbation of COPD, anemia, AR, electrolyte imbalance, PE Medical Records Attestation: I reviewed the patient's medical records. Home Medications Current Medication List: was personally reviewed by me Laboratory Data Attestation: I reviewed the patient's lab results. Result diagrams: 10/10/18 17:46 10/10/18 17:46 Lab Results 10/10/18 10/10/18 10/10/18 Range/Units 17:46 17:46 17:46 WBC 5.74 (4.8-10.8) K/uL RBC 2.70 L (4.2-5.4) M/uL Hgb 8.6 L (12.0-16.0) g/dL Hct 25.6 L (37-47) % MCV 94.8 (80-100) fL MCH 31.9 (25-34) pg MCHC 33.6 (32-36) g/dL RDW Std Deviation 56.0 H (36.4-46.3) fL RDW Coeff of Filemon 16.2 H (11.5-14.5) % Plt Count 419 H (130-400) K/uL MPV 8.8 (7.4-10.4) fL Immature Gran % (Auto) 0.2 % Neut % (Auto) 70.8 % Lymph % (Auto) 14.1 % Bowman % (Auto) 12.4 % Eos % (Auto) 2.3 % Baso % (Auto) 0.2 % Immature Gran # (Auto) 0.01 (0.00-0.02) K/uL Neut # (Auto) 4.07 (1.4-6.5) K/uL Lymph # (Auto) 0.81 L (1.2-3.4) K/uL Bowman # (Auto) 0.71 H (0.11-0.59) K/uL Eos # (Auto) 0.13 (0-0.5) K/uL Baso # (Auto) 0.01 (0-0.2) K/uL PT 12.2 H (9.0-12.0) Seconds INR 1.2 H (0.9-1.1) APTT 29.5 (21.0-31.0) Seconds PTT Ratio 1.1 Sodium 134 L (136-145) mmol/L Potassium 2.9 L (3.5-5.1) mmol/L Chloride 99 (98-107) mmol/L Carbon Dioxide 32 (21-32) mmol/L Anion Gap 3.0 (3-11) BUN 4 L (7-18) mg/dl Creatinine 0.71 (0.6-1.2) mg/dl Est Cr Clr Drug Dosing Not Reportable Est GFR ( Amer) 97.9 Est GFR (Non-Af Amer) 84.5 BUN/Creatinine Ratio 6.2 L (10-20) Glucose 97 (70-99) mg/dl Lactate (0.4-2.0) mmol/L Calcium 8.2 L (8.5-10.1) mg/dl Magnesium 1.5 L (1.8-2.4) mg/dl Total Bilirubin 0.3 (0.2-1) mg/dl AST 10 L (15-37) U/L ALT 9 L (12-78) U/L Alkaline Phosphatase 121 H (45-117) U/L Troponin I < 0.015 (0-0.045) ng/ml Total Protein 5.9 L (6.4-8.2) gm/dl Albumin 2.2 L (3.4-5.0) gm/dl Globulin 3.7 (2.5-4.0) gm/dl Albumin/Globulin Ratio 0.6 L (0.9-2) Procalcitonin (0-0.5) ng/ml 10/10/18 10/10/18 Range/Units 17:46 20:52 WBC (4.8-10.8) K/uL RBC (4.2-5.4) M/uL Hgb (12.0-16.0) g/dL Hct (37-47) % MCV (80-100) fL MCH (25-34) pg MCHC (32-36) g/dL RDW Std Deviation (36.4-46.3) fL RDW Coeff of Filemon (11.5-14.5) % Plt Count (130-400) K/uL MPV (7.4-10.4) fL Immature Gran % (Auto) % Neut % (Auto) % Lymph % (Auto) % Bowman % (Auto) % Eos % (Auto) % Baso % (Auto) % Immature Gran # (Auto) (0.00-0.02) K/uL Neut # (Auto) (1.4-6.5) K/uL Lymph # (Auto) (1.2-3.4) K/uL Bowman # (Auto) (0.11-0.59) K/uL Eos # (Auto) (0-0.5) K/uL Baso # (Auto) (0-0.2) K/uL PT (9.0-12.0) Seconds INR (0.9-1.1) APTT (21.0-31.0) Seconds PTT Ratio Sodium (136-145) mmol/L Potassium (3.5-5.1) mmol/L Chloride (98-107) mmol/L Carbon Dioxide (21-32) mmol/L Anion Gap (3-11) BUN (7-18) mg/dl Creatinine (0.6-1.2) mg/dl Est Cr Clr Drug Dosing Est GFR ( Amer) Est GFR (Non-Af Amer) BUN/Creatinine Ratio (10-20) Glucose (70-99) mg/dl Lactate 0.8 (0.4-2.0) mmol/L Calcium (8.5-10.1) mg/dl Magnesium (1.8-2.4) mg/dl Total Bilirubin (0.2-1) mg/dl AST (15-37) U/L ALT (12-78) U/L Alkaline Phosphatase (45-117) U/L Troponin I (0-0.045) ng/ml Total Protein (6.4-8.2) gm/dl Albumin (3.4-5.0) gm/dl Globulin (2.5-4.0) gm/dl Albumin/Globulin Ratio (0.9-2) Procalcitonin 82.77 H (0-0.5) ng/ml Imaging Data Radiologist's Impression: Radiology results as stated below per my review and the radiologist's interpretation: SINGLE VIEW CHEST CLINICAL HISTORY: Dyspnea. FINDINGS: An AP, portable, upright chest radiograph is compared to study dated 09/07/2018 and correlated with chest CT dated 09/05/2018. The examination is degraded by portable technique and patient rotation. The heart is mildly enlarged, and there is atherosclerotic calcification of the thoracic aorta. The pulmonary vasculature is noncongested. Emphysema and chronic interstitial t hickening are similar to previous. Postoperative change involving loss are noted in the right lung, and there is pleural fluid at the right lung base. There is patchy airspace consolidation seen in the right mid to upper lung. This is new from 09/07/2018. The left lung appears clear. No pneumothorax is seen. The skeletal structures are osteopenic. Postoperative change is noted in the right sided ribs. A left shoulder arthroplasty is in place. Arthritic change is seen in the right shoulder. Thoracic scoliosis is noted. IMPRESSION: 1. Heart and likely, emphysema, and postoperative change from right-sided pulmonary resection are again noted. 2. There is patchy airspace consolidations in the right mid to upper lung. This is new from 09/07/2018 and likely represents pneumonia. Posttreatment change and/or recurrent tumor could appear similar and clinical correlation will be required. 3. Pleural fluid is again noted in the right lung base. 4. The left lung appears clear. Electronically signed by: Gio Fletcher M.D. 10/10/2018 5:45 PM ECG Data Attestation: I personally reviewed and interpreted this ECG as follows: Indication: SOB/dyspnea Rate (beats per minute): 103 Rhythm: sinus tachycardia Findings: no PVC and no ST elevation Blood Pressure Blood Pressure Findings: Normal blood pressure Blood Pressure Disposition: did not require urgent referral MDM Narrative There is no leukocytosis. The patient is anemic. She has a history of this but today's value is slightly lower than past values. Platelet count was 419. No concerning coagulopathy. Renal panel testing showed a low potassium at 2.9. Magnesium was low 1.5. No kidney failure. No hepatitis. EKG showed a sinus tachycardia, no acute ischemia. Cardiac enzyme testing x1 is not consistent with acute cardiac injury. Chest film does show a right upper lung pneumonia, this finding is new as of a month ago. Blood cultures are pending. Lactic acid level was not elevated making sepsis less likely. The patient received a DuoNeb, IV Solu-Medrol, IV magnesium, IV and oral potassium. She received IV saline, 1 L. She received IV Zosyn as antibiotic coverage. The patient presents tachycardic, she was hypoxic at home as per her home nurse. She has noticed some increasing dyspnea. Patient appears to have pneumonia by work-up. She is anemic and has a low magnesium and low potassium. I do think a hospital stay is warranted especially given the hypoxia. I spoke to the patient and case management. The on-call hospitalist was consulted. Impression & Plan Hypoxia, Pneumonia, Anemia, Hypokalemia, Tachycardia, Hypomagnesemia Discharge Plan Visit Data *Final* Discharge Date/Time: 10/10/18 20:08 Chief Complaint: Arrhythmia/Palpitations Stated Complaint: HIGH HEART RATE;LOW BLOOD PRESSURE ED Provider: Goi Acharya Discharge Problem: Hypoxia, Pneumonia, Anemia, Hypokalemia, Tachycardia, Hypomagnesemia Patient Disposition: Admitted As Inpatient Discharge Instructions Interventions: ED Discharge Assessment Last Done: 10/10/18 20:08 Discharge Problem: Pneumonia Qualifiers: Pneumonia type: due to unspecified organism Laterality: right Lung location: unspecified part of lung Qualified Code(s): J18.9 - Pneumonia, unspecified organism Anemia Qualifiers: Anemia type: unspecified type Qualified Code(s): D64.9 - Anemia, unspecified The scribe's documentation has been prepared under my direction and personally reviewed by me in its entirety. I confirm that the note above accurately reflects all work, treatment, procedures, and medical decision making performed by me.
--- NOTE | 2018-10-10 19:33 | History & Physical Report ---
Date of Service October 10, 2018 Assessment & Plan (1) Pneumonia: Patient has progression of chest x-ray changes in the right upper lobe consistent with an area that the nodule described. Because of her recent hospital stay she is at risk for hospital associated pneumonia such as gram- negative MRSA or even a postobstructive pneumonia. As the patient was discharged on a penicillin-based drug will place her on cefepime and vancomycin will check a MRSA nasal swab. Because of previous description of a possible nodule in the area we will consult Dr. Esteban to see if the bronchoscopy and intervention may be undertaken. Blood cultures are pending (2) Hypoxia: Patient has acute on chronic respiratory failure with hypoxia likely based on some COPD. The patient will be placed on duo nebs we will continue her Symbicort and use some steroids. We will add mucolytic's to try to improve expectoration of her mucus. Patient does have medications such as Lasix and diltiazem but the x-ray does not appear to be consistent with heart failure at this time (3) Hypokalemia: Patient is hypokalemic and was augmented in the ER and this will be continued upstairs (4) Hypomagnesemia: Patient is hypomagnesemic this will be admitted (5) Dysphagia: Patient describes some dysphasia and wishes to have a bite-size meal of soft foods (6) DVT prophylaxis: Lovenox abuse visits improved effectiveness in cancer patients History of Present Illness Primary Care Provider: Ari Renee DO This is a 73 yo F with PMHx of right lung cancer originally diagnosed in 2012, s/p chemotherapy and radiation therapy. Most recent chemotherapy was Aug 05 where she completed the second round of paclitaxel, this most recent chemo was a reduced dose. Other PMHx includes COPD, remote smoking hx 40 yrs ago with 1 ppd x 15 yrs, HTN, HLD< anxiety, depression. Pt was recently admitted from 08/13-08/22 at our facility due to neutropenic sepsis secondary to cellulitis and radiation patient is on a facility discharged September 11 at which time she was felt to have pneumonia with CT changes in the right upper lobe was discharged on 4 additional days of Augmentin therapy. Reportedly CT of the right upper lobe showed fluid in the fissure and a pulmonary nodule located. Patient has had slight improvement but now declined with the increase respiratory work and profoundly hypoxic with confusion associated with it. She has progressive change on chest x-ray in the right upper lobe area which is described as above. This looks worsened from previous. Her white count is elevated the patient has had a nonproductive cough there is concern for healthcare associate pneumonia gram-negative's MRSA and possibly postobstructive pneumonia Allergies Allergy/AdvReac Type Severity Reaction Status Date / Time hydrochlorothiazide AdvReac Intermediate DIZZY, Verified 10/10/18 18:17 "LOOPY" FEELING Home Medications Home Medications Medication Instructions Recorded Confirmed Type Symbicort 1 puff INHALATION BID 03/27/18 10/10/18 History albuterol sulfate [Proventil HFA] 2 puff INHALATION Q6H PRN 03/27/18 10/10/18 History alprazolam 0.25 mg PO BID PRN 03/27/18 10/10/18 History aspirin 81 mg PO QAM 03/27/18 10/10/18 History atorvastatin 20 mg PO QPM 03/27/18 10/10/18 History ipratropium-albuterol 3 ml INHALATION QID 03/27/18 10/10/18 History lansoprazole [Prevacid] 15 mg PO BID 03/27/18 10/10/18 History multivitamin 1 tab PO QAM 03/27/18 10/10/18 History paroxetine HCl 20 mg PO QAM 03/27/18 10/10/18 History tramadol 50 mg tablet 50 mg PO Q8H PRN #30 tab 07/21/18 10/10/18 Rx diltiazem HCl [Cardizem CD] 180 mg PO DAILY 10/10/18 10/10/18 History furosemide 40 mg PO DAILY 10/10/18 10/10/18 History losartan 50 mg PO DAILY 10/10/18 10/10/18 History Past Med/Surg History Medical History Sarcopenia Acute respiratory failure with hypoxia Encephalopathy Pneumonia (Acute) Neutropenic sepsis Hyponatremia (Acute) Cellulitis of left lower extremity (Acute) Cancer of right lung (Acute) 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 Radiation completed June 25, 2018. She received 6000 cGy. Difficult intubation LEFT FOOT RECONSTRUCTION= 12/28/16= GLIDESCOPE# 3 ETT 7.0 AT [facility] Hypertension (Chronic) Asthma (Chronic) COPD (chronic obstructive pulmonary disease) (Chronic) Hyperlipidemia (Chronic) Anxiety (Chronic) Depression (Chronic) Anemia (Chronic) Anxiety (Chronic) Asthma (Chronic) COPD (chronic obstructive pulmonary disease) (Chronic) Depression (Chronic) Dysphagia (Chronic) Hyperlipidemia (Chronic) Hypertension (Chronic) Irritable bowel disease (Chronic) Mediastinal lymphadenopathy (Chronic) Obesity (Chronic) Lung nodules Surgical History S/P appendectomy (Chronic) S/P hysterectomy (Chronic) H/O: hysterectomy (Acute) History of appendectomy (Resolved) as teenager History of bronchoscopy (Resolved) Multiple History of cataract surgery (Resolved) 2011 - Bilat History of colonoscopy (Resolved) 2017 Hx of abdominal hysterectomy (Resolved) 1972 Hx of foot surgery (Resolved) 2014 & 2017 - LEFT X2 Hx of repair of rotator cuff (Resolved) 2009 - RIGHT Hx of total shoulder replacement (Resolved) 2015 - LEFT Family History Mother Dementia Father , Passed age 67 of Lung Cancer (Heavy Smoker) Lung cancer Brother , Passed in 68 of Liver Cancer Liver cancer Brother , Passed in 60's of [place] Heart attack Brother COPD (chronic obstructive pulmonary disease) Sister No problems noted. Son No problems noted. Son No problems noted. Son No problems noted. Son No problems noted. Daughter No problems noted. Social History Preferred Language: Spanish Communication Ability: Impaired Visual Impairment: Limited Hearing Ability: Normal Beliefs That Will Affect Care: None marital status: / Current Living Situation: Family current occupational status: retired current occupation: Retired from [employer] Feels Safe at Home: Yes Smoking Status: Former smoker Tobacco Type: cigarettes Cigarettes Per Day: 1 pack/week Second Hand Exposure: Yes (Not recent ) Hx Alcohol Use: No Hx Substance Use: No caffeine: Yes (1 pot of coffee/day ) Review of Systems Review of Systems: ROS: Weak and chronically ill-appearing No double vision blurry vision No problems with speech or swallowing No palpitations, chest pain or pressure Nonproductive cough and dyspnea on exertion No abdominal pain nausea vomiting diarrhea has had some recent weight loss and poor appetite No burning urine urine frequency or changes in color No focal joint pain or muscle pain No skin rashes or oral lesions No unusual bruising or bleeding No focused back pain or numbness or loss of strength Some confusion associate with hypoxia now resolved Physical Exam Physical Exam: The patient appeared clearly in moderate distress Vital signs as documented. Head exam is unremarkable. normocephalic, atraumatic Neck is without jugular venous distension, thyromegaly, or lymphademopathy Lungs are diminished bilaterally with some rhonchi in the right mid upper lobe no wheezes Cardiac exam reveals Rhythm is regular. First and second heart sounds normal. Abdominal exam reveals normal bowel sounds, no masses, no organomegaly Extremities are nonedematous and both pedal pulses are present Neurologic exam is A&Ox3, no focal deficits, strength is equal bilateral Psychologically seems neither anxious or depressed Skin is warm Dry without bruises or lesions Results & Data Vital Signs (Past 12 Hours) Vital Signs Temp Pulse Resp BP Pulse Ox 10/10/18 17:53 127 H 25 H 108/69 94 10/10/18 17:46 93 10/10/18 17:38 107 H 32 H 10/10/18 17:15 93 10/10/18 17:10 36.7 C 107 H 22 119/61 80 L Diagnostic Findings cxr emphysema, and postoperative change from right-sided pulmonary resection are again noted. There is patchy airspace consolidations in the right mid to upper lung. This is new from 09/07/2018 and likely represents pneumonia. 3. Pleural fluid is again noted in the right lung base. 4. The left lung appears clear. (1) Pneumonia Laterality: right Lung location: unspecified part of lung Pneumonia type: due to unspecified organism Qualified Code(s): J18.9 - Pneumonia, unspecified organism
[2018-10-10] MEDS ORDERED: ONDANSETRON INJ 2 MG/ML 2 ML VIAL IV PRN (20:14)
[2018-10-10] MEDS ORDERED: ACETAMINOPHEN 325 MG TAB PO PRN (20:14)
[2018-10-10] MEDS ORDERED: ALPRAZolam 0.25 MG TABLET PO PRN (20:14)
[2018-10-10] MEDS ORDERED: VANCOMYCIN CONSULT ACTIVE PRN (20:14)
[2018-10-10] MEDS ORDERED: TRAMADOL HCL 50 MG TABLET PO PRN (20:14)
[2018-10-10] MEDS ORDERED: CONSULT PHARMACY STA (20:14)
[2018-10-10] MEDS ORDERED: LORazepam 0.5 MG/1 ML VIAL IV PRN (20:14)
[2018-10-10] MEDS ORDERED: POTASSIUM CHLORIDE 10 MEQ / 100ML WTR IV SCH (21:15)
[2018-10-10] MEDS ORDERED: VANCOMYCIN HCL 1,750 MG in SODIUM CHLORIDE 0.9% 500 ML IV ONE (21:30)
[2018-10-10] MEDS: POTASSIUM CHLORIDE / WTR 10 MEQ/100 ML PLCT IV SCH ×2 (21:47→23:25)
[2018-10-10] MEDS: SODIUM CHLORIDE 0.9% 1000ML 1,000 ML IV SCH (21:47)
[2018-10-10] MEDS: CEFEPIME 2,000 MG in SYRINGE 7.5 ML IV SCH (21:59)
[2018-10-10] MEDS: methylPREDNISolone 40 MG in SYRINGE 0 ML IV SCH (21:59)
[2018-10-10] MEDS: ALBUT/IPRATROP 3MG/0.5MG NEB 3 ML VIAL NEB SCH (22:01)
[2018-10-10] MEDS: BUDESONIDE/FORMOTEROL FUMARATE 160/4.5 60 PUFFS/INHALER INH SCH (22:23)
[2018-10-10] MEDS: PANTOprazole 40 MG TAB PO SCH (22:24)
[2018-10-10] MEDS: ATORVASTATIN 20 MG TAB PO SCH (22:24)
[2018-10-10] MEDS: ENOXAPARIN INJ 40 MG/0.4 ML SYR SQ SCH (22:25)
[2018-10-10] MEDS: POTASSIUM CHLORIDE 20 MEQ TABCR PO SCH (22:26)
--- NOTE | 2018-10-10 22:53 | Pharmacy Report ---
Pharmacy Abx Initial Consult - Date of Service October 10, 2018 - Pharmacy Dosing Scope Date of Consult: 10/10/18 Consultation requested by: Dr. Eng Pharmacy is consulted to initiate Vancomycin IV/PO dosing therapy, order appropriate labs and adjust drug dose/frequency. - Subjective The patient is a 73 year old F admitted on 10/10/18 19:47. - Objective Height: 5 ft Weight: 73.9 kg Vital Signs (Past 12hrs): Vital Signs Temp Pulse Pulse Resp BP BP Pulse Ox 10/10/18 22:01 100 H 20 94 10/10/18 20:47 37 C 101 H 20 122/75 91 10/10/18 17:53 127 H 25 H 108/69 94 10/10/18 17:46 93 10/10/18 17:38 107 H 32 H 10/10/18 17:15 93 10/10/18 17:10 36.7 C 107 H 22 119/61 80 L Lab Results (24hrs): Laboratory Tests (24 Hours) 10/10/18 10/10/18 10/10/18 20:52 17:46 17:46 WBC 5.74 Neut # (Auto) 4.07 Creatinine 0.71 Est Cr Clr Drug Dosing Not Reportable Procalcitonin 82.77 H Micro Results: 10/10/18 17:46 Blood Culture - Pending Blood 10/10/18 17:46 Blood Culture - Pending Blood - Risk Factors for Resistance * Hospitalization for 48 hours or more within the past 90 days * Immunocompromised (Pt has lung cancer; last chemo treatment was 08/05/18 - Paclitaxel) * Antimicrobial use within the last 90 days [Augmentin after previous admission] - Assessment & Plan Assessment 73 year old F admitted for progression of chest x-ray changes in the right upper lobe. She was recently admitted 08/13-08/22 and again 09/05-09/11. At that time she was discharged on Augmentin. Afebrile, no leukocytosis. Patient is also being treated for lung cancer, with a previously noted nodule in the same areas as the consolidations seen on imaging. r/o infectious process or progression of cancer. possibly getting bronchoscopy tomorrow. Procal 82.77? MRSA nasal swab pending. Plan Vancomycin for treatment of pneumonia Vancomycin IV * Estimated PK Parameters: Vd 0.7 L/kg, Emmanuel 0.056 hr-1, t1/2 12 hr * Loading dose: 1750 mg (23.7 mg/kg) * Maintenance dose: 1000 mg IV (13.5 mg/kg) every 14 hours * Goal trough level : 15 to 20 mcg/mL * Trough/Random level ordered for 10/12/18 before 1600 dose. Cefepime (not a consult) * Dose adjusted per P&T protocol for renal function. * Target dose: 2gm IV Q8h --> 2gm Q12h for CrCl 30-60 mL/min Pharmacy will continue to follow and will adjust dose/frequency as necessary. Thank you.
[2018-10-11] MEDS: ALBUT/IPRATROP 3MG/0.5MG NEB 3 ML VIAL NEB SCH ×7 (00:01→23:24)
[2018-10-11] MEDS: POTASSIUM CHLORIDE / WTR 10 MEQ/100 ML PLCT IV SCH (00:41)
[2018-10-11 07:44] LABS: Hemoglobin 8.2 g/dL (12.0-16.0); Mean Corpuscular Hgb Conc 32.8 g/dL (32-36); Mean Corpuscular Volume 95.4 fL (80-100); Mean Platelet Volume 8.6 fL (7.4-10.4); Platelet Count 351 K/uL (130-400); RDW Coefficient of Variation 16.3 % (11.5-14.5); RDW Standard Deviation 57.3 fL (36.4-46.3); Red Blood Count 2.62 M/uL (4.2-5.4); White Blood Count 2.04 K/uL (4.8-10.8)
[2018-10-11] MEDS: ASPIRIN 81 MG ECTAB PO SCH (08:09)
[2018-10-11] MEDS: PARoxetine HCl 20 MG TAB PO SCH (08:09)
[2018-10-11] MEDS: LOSARTAN POTASSIUM 50 MG TAB PO SCH (08:09)
[2018-10-11] MEDS: PANTOprazole 40 MG TAB PO SCH ×2 (08:09→20:12)
[2018-10-11] MEDS: FUROSEMIDE 40 MG TAB PO SCH (08:10)
[2018-10-11] MEDS: dilTIAZem HCL 180 MG CAPCR PO SCH (08:10)
[2018-10-11] MEDS: POTASSIUM CHLORIDE 20 MEQ TABCR PO SCH ×2 (08:11→20:12)
[2018-10-11] MEDS: BUDESONIDE/FORMOTEROL FUMARATE 160/4.5 60 PUFFS/INHALER INH SCH ×2 (08:11→20:10)
[2018-10-11] MEDS: methylPREDNISolone 40 MG in SYRINGE 0 ML IV SCH ×2 (08:11→20:18)
[2018-10-11 08:26] LABS: BUN Creatinine Ratio 6.1 (10-20); Calcium 8.5 mg/dl (8.5-10.1); Creatinine Clr Calc Pharmacy 69.2 ml/min; Est GFR (African American) 102.1; Est GFR (Non-African American) 88.1; Potassium 4.8 mmol/L (3.5-5.1)
[2018-10-11] MEDS: CEFEPIME 2,000 MG in SYRINGE 7.5 ML IV SCH ×2 (10:54→20:36)
[2018-10-11] MEDS: SODIUM CHLORIDE 0.9% 1000ML 1,000 ML IV SCH (10:54)
--- NOTE | 2018-10-11 12:31 | Consultation Report ---
DATE OF CONSULTATION: 10/11/2018 SURGICAL CONSULTATION REASON FOR CONSULTATION: Concern for postobstructive pneumonia. HISTORY OF PRESENT ILLNESS: This is a 73-year-old female with a known diagnosis of right-sided lung cancer which was diagnosed in 2012. The patient says that she has undergone chemotherapy as well as radiation therapy. She notes that her most recent session of chemotherapy was August 05. The patient also has a noteworthy history of admission to [facility] from August 13 through due to neutropenic sepsis which is felt to be secondary to cellulitis. The patient says that she was now admitted to [facility] because her therapy nurse had noted that she was hypoxic. I did question her on symptoms and she says she does not really have any shortness of breath or dyspnea on exertion, but again was found to be hypoxic. Her only other main complaint, she notes that her appetite has been very poor. She denies any nausea, vomiting. I questioned her on other symptoms and she did not have any recent falls, head injuries or visual changes. She denies any otalgia or sore throat. She denies any neck pain or chest pain and again is not really short of breath, but was found to be hypoxic. She denies abdominal pain or diarrhea. She also denies nausea, vomiting, but again notes a very poor appetite. No dysuria is reported. She does not note a history of any DVT or PE. The patient was admitted to [facility] where she did have labs drawn. Her white blood cell count this morning is noted to be low at 2.0; however, she is not noted to be neutropenic. Her hemoglobin and hematocrit are 8.2 and 25.0. Her platelet count is within the normal range. Chemistry profile did show sodium, potassium as well as BUN and creatinine were within normal range. Coagulation studies revealed an INR of 1.2. This admission, she did have blood cultures drawn which are pending. She also had some imaging studies including a chest x-ray and this chest x-ray showed some patchy airspace consolidations in the right mid to upper lung zone, which was new from a comparison x-ray on 09/07/2018. This was felt to represent pneumonia; however, post-treatment or recurrent tumor could not be excluded. For this reason, Dr. Torres is consulted. At the time of my exam, the patient was resting comfortably in bed and did not appear to be in any distress. PAST MEDICAL HISTORY: Includes: 1. History of lung cancer. 2. History of neutropenic sepsis. 3. History of left lower extremity cellulitis. 4. Hypertension. 5. Asthma. 6. COPD. 7. Hyperlipidemia. 8. Anxiety. 9. Depression. 10. Anemia. 11. Hyperlipidemia. 12. History of irritable bowel disease. PAST SURGICAL HISTORY: Includes the followin. Appendectomy. 2. Hysterectomy. 3. History of multiple bronchoscopies. 4. Bilateral cataract surgeries. 5. Colonoscopy. 6. History of left foot surgery on 2 occasions. 7. History of right rotator cuff repair. 8. History of left shoulder replacement. FAMILY HISTORY: The patient's father suffered from lung cancer. SOCIAL HISTORY: The patient is a remote smoker. REVIEW OF SYSTEMS: As described above. ALLERGIES: SHE HAS A LISTED ALLERGY TO HYDROCHLOROTHIAZIDE. OUTPATIENT MEDICATIONS: Include the followin. Albuterol inhaler as needed. 2. Xanax 0.25 mg twice daily as needed. 3. Aspirin 81 mg daily. 4. Lipitor 20 mg daily. 5. Cardizem 180 mg daily. 6. Lasix 40 mg daily. 7. Combivent nebulizer 4 times daily. 8. Prevacid 15 mg twice daily. 9. Losartan 50 mg daily. 10. Multivitamin daily. 11. Paxil 20 mg daily. 12. Symbicort inhaler twice daily. 13. Tramadol as needed for pain. REVIEW OF SYSTEMS: As described above. PHYSICAL EXAMINATION: VITAL SIGNS: The patient is afebrile, temperature 36.8, her pulse ox 97% on 2 liters. Blood pressure is 117/81, pulse 100 and regular, respirations are 18 and unlabored. GENERAL: She is alert. She is oriented x3. She is in no distress. HEENT: Head is atraumatic, normocephalic. Eyes: Pupils equal, round and reactive to light and accommodation. Extraocular motions are intact. Ears: Auditory acuity is grossly intact. Nose: Nasal patency was intact. Sinuses are nontender. Mouth is moist without exudates. NECK: Supple. There is no JVD. CARDIOVASCULAR: Regular rate and rhythm. LUNGS: The patient's lungs revealed occasional coarse rhonchi that did appear to clear somewhat with cough. There is no wheezing or use of accessory muscles. ABDOMEN: Soft and nontender. EXTREMITIES: Revealed no cyanosis, clubbing, or edema. She did have palpable DP and radial pulses bilaterally. NEUROLOGIC: Revealed cranial nerves II through XII are grossly intact. She can move all 4 extremities and follow simple commands without difficulty. DIAGNOSTIC DATA: As noted above. IMPRESSION AND PLAN: The patient is a 73-year-old female with underlying history of lung cancer, now admitted with pneumonia. The patient is currently undergoing treatment with pneumonia with antibiotics in the form of cefepime and vancomycin. She is also on intravenous steroids. We will continue this and follow along with the patient's cultures with changes to be made based on her clinical course and cultures as they unfold. Because of her chest x-ray findings, we have been asked to see the patient for possible bronchoscopic intervention. I discussed the case with Dr. Torres and he will consider a bronchoscopy on 10/13/2018. He will discuss this procedure in more detail with the patient tomorrow. She did express her understanding.
[2018-10-11] MEDS: VANCOMYCIN HCL 1,000 MG in SODIUM CHLORIDE 0.9% 250 ML IV SCH (13:41)
--- NOTE | 2018-10-11 14:47 | Hospitalist Progress Note ---
Date of Service October 11, 2018 Assessment & Plan (1) Pneumonia: - Had multiple admissions with length of stay for the majority of August into September - treated for pneumonia and neutropenic sepsis - CXR with progressive changes to the RUL with noted nodule in this region - recent hospital admission and therefore at risk for healthcare associated pneumonia/gram-neg, vs MRSA vs post-obstructive PNA vs fungal? - Placed on Cefepime 2 g IV BID and Vancomycin - Duonebs ERICAK and PRN; Mucinex BID - CT Surg consulted - concern for possible nodule and post-obstructive PNA - possibility of bronchoscopy on Saturday (2) Hypoxia: - This is likely an acute respiratory failure related to the above and underlying COPD; Reports she normally does not utilize supplemental O2 - Solu-Medrol 40 mg IV BID; Symbicort BID; Further treatment as above (3) Hypokalemia: - Also with hypomagnesemia - currently resolved with supplementation; Will continue to monitor and replete as necessary Present on Admission?: Yes (4) Dysphagia: - Chronic issue - noted more with rough textured foods such as meats - diet ordered appropriately Present on Admission?: Yes (5) Lung cancer: - 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 Buck - Last chemotherapy in July - reports her treatment is due to change and has F/U appointment for October 23 Present on Admission?: Yes (6) Hypertension: - Losartan 50 mg daily; Diltiazem 180 mg daily; Lasix 40 mg daily Present on Admission?: Yes (7) DVT prophylaxis: - Lovenox; Can hold tomorrow if bronchoscopy on Saturday Subjective Pt reports feeling much better today. Still requiring supplemental O2. Continues with a non-productive cough. Reports a fair appetite but is tolerating this. Has chronic issues swallowing some textures like steak but denies aspiration. Anticipating a possible bronchoscopy on Saturday Review of Systems Constitutional: no fever and no chills Ear, Nose, Mouth, Throat: + dysphagia; no nasal congestion and no sore throat Respiratory: + cough and + wheezing; no dyspnea and no sputum production Cardiovascular: no chest pain, no palpitations, no lightheadedness and no edema Gastrointestinal: no abdominal pain, no nausea, no vomiting, no constipation and no diarrhea/loose stools Genitourinary: no dysuria Musculoskeletal: no body aches Integumentary: no rash Physical Exam Constitutional: no acute distress and not ill appearing Eyes: + anicteric sclerae ENMT: Ears: no hearing impairment Neck: normal visual inspection and trachea midline Respiratory: normal respiratory effort and + cough Auscultation: + crackles and + wheezes Cardiovascular: Rate/Rhythm: regular rate and regular rhythm Extremities: + edema (trace pitting in lower extremities b/l) Gastrointestinal (Abdomen): Inspection/Auscultation: normal bowel sounds Percussion/Palpation: abdomen soft; abdomen nontender Musculoskeletal: Head/Neck/Chest: normocephalic, head atraumatic and neck supple Skin: no rashes, warm and dry Neurologic: moves all extremities Psychiatric: A+Ox3, euthymic affect Results & Data Vital Signs (Past 12 Hours) Vital Signs Temp Pulse Resp BP Pulse Ox 10/11/18 11:52 37 C 96 H 18 131/76 95 10/11/18 11:40 79 20 95 10/11/18 07:23 100 H 18 97 10/11/18 07:17 36.8 C 97 H 18 117/81 96 10/11/18 04:15 36.7 C 102 H 14 125/58 L 93 10/11/18 03:02 99 H 18 91 (1) Pneumonia Laterality: right Lung location: unspecified part of lung Pneumonia type: due to unspecified organism Qualified Code(s): J18.9 - Pneumonia, unspecified organism
[2018-10-11] MEDS: ATORVASTATIN 20 MG TAB PO SCH (20:11)
[2018-10-11] MEDS: ENOXAPARIN INJ 40 MG/0.4 ML SYR SQ SCH (20:13)
[2018-10-11] MEDS: guaiFENesin 600 MG TABCR PO SCH (20:17)
[2018-10-12] MEDS: VANCOMYCIN HCL 1,000 MG in SODIUM CHLORIDE 0.9% 250 ML IV SCH ×2 (01:46→16:52)
[2018-10-12] MEDS: ALBUT/IPRATROP 3MG/0.5MG NEB 3 ML VIAL NEB SCH ×6 (03:42→23:15)
[2018-10-12 07:25] LABS: Hematocrit (blood only) 24.1 % (37-47); Hemoglobin 8.2 g/dL (12.0-16.0); Mean Corpuscular Volume 95.3 fL (80-100); Platelet Count 371 K/uL (130-400); RDW Standard Deviation 55.6 fL (36.4-46.3); Red Blood Count 2.53 M/uL (4.2-5.4); White Blood Count 5.98 K/uL (4.8-10.8)
[2018-10-12 07:59] LABS: BUN Creatinine Ratio 11.4 (10-20); Calcium 8.8 mg/dl (8.5-10.1); Creatinine Clr Calc Pharmacy 56.4 ml/min; Est GFR (African American) 84.8; Est GFR (Non-African American) 73.1; Potassium 4.5 mmol/L (3.5-5.1)
[2018-10-12] MEDS: guaiFENesin 600 MG TABCR PO SCH ×2 (08:40→21:55)
[2018-10-12] MEDS: LOSARTAN POTASSIUM 50 MG TAB PO SCH (08:40)
[2018-10-12] MEDS: PARoxetine HCl 20 MG TAB PO SCH (08:41)
[2018-10-12] MEDS: ASPIRIN 81 MG ECTAB PO SCH (08:41)
[2018-10-12] MEDS: dilTIAZem HCL 180 MG CAPCR PO SCH (08:41)
[2018-10-12] MEDS: FUROSEMIDE 40 MG TAB PO SCH (08:41)
[2018-10-12] MEDS: PANTOprazole 40 MG TAB PO SCH ×2 (08:41→21:55)
[2018-10-12] MEDS: BUDESONIDE/FORMOTEROL FUMARATE 160/4.5 60 PUFFS/INHALER INH SCH ×2 (08:41→21:53)
[2018-10-12] MEDS: methylPREDNISolone 40 MG in SYRINGE 0 ML IV SCH ×2 (08:41→21:53)
[2018-10-12] MEDS: CEFEPIME 2,000 MG in SYRINGE 7.5 ML IV SCH ×2 (09:04→22:18)
--- NOTE | 2018-10-12 12:56 | Progress Note ---
DATE: 10/12/2018 Linsey Arellano is a 73-year-old female that I met a few months ago on a referral from Dr. Alessio Orellana. Very interesting history of having atypical squamous cell changes and carcinoma in situ, which was treated with a cryoprobe [facility] at the [facility]. This has been going on for some time. The patient had an endobronchial ultrasound done on 04/01/2018 and she had her right level 4, right level 10 lymph nodes as well as level 7 were involved with cancer. She was treated with chemotherapy and radiation and it appeared to me at that time that she may have had a collapse of her upper lobe and she had received radiation. She was recently admitted and it appears that she has pneumonia. Her chest x-ray and a CT show this infiltrative pattern was not there before. She states that she is with hypoxia. She denies dyspnea on exertion. She has also not been eating well. She has had no productive cough. She denies fevers or chills. For specifics of our consultation, please see Mr. Lei Pereira's note from 10/11/2018. I had a long talk with the patient today and I agree that she needs a bronchoscopy. I am going to set her up to do this tomorrow. We will do this in the bronchoscopy suite under sedation and local. We had a long talk about this and she understands. She has had multiple bronchoscopies done. We will get this to be done in the morning.
[2018-10-12] MEDS ORDERED: VANCOMYCIN TROUGH ONE (15:30)
--- NOTE | 2018-10-12 19:37 | Hospitalist Progress Note ---
Date of Service October 12, 2018 Assessment & Plan (1) Pneumonia: - Had multiple admissions with length of stay for the majority of August into September - treated for pneumonia and neutropenic sepsis - CXR with progressive changes to the RUL with noted nodule in this region - recent hospital admission and therefore at risk for healthcare associated pneumonia/gram-neg, vs MRSA vs post-obstructive PNA vs fungal? - Placed on Cefepime 2 g IV BID and Vancomycin - Duonebs ERICKA and PRN; Mucinex BID - CT Surg consulted - concern for possible nodule and post-obstructive PNA - planning bronchoscopy on Saturday (2) Hypoxia: - This is likely an acute respiratory failure related to the above and underlying COPD; Reports she normally does not utilize supplemental O2 - Solu-Medrol 40 mg IV BID; Symbicort BID; Further treatment as above (3) Hypokalemia: - Also with hypomagnesemia - currently resolved with supplementation; Will continue to monitor and replete as necessary (4) Dysphagia: - Chronic issue - noted more with rough textured foods such as meats - diet ordered appropriately (5) Lung cancer: - 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 Buck - Last chemotherapy in July - reports her treatment is due to change and has F/U appointment for October 23 (6) Hypertension: - Losartan 50 mg daily; Diltiazem 180 mg daily; Lasix 40 mg daily (7) DVT prophylaxis: - Lovenox - hold for bronch and then can resume Disposition: Await bronchoscopy and culture to tailor therapy Supervising Physician Co-Signing Physician Notes PA Supervision Note: I did not personally see or examine the patient today, but I verified all phillip points of SURESH Perez's assessment and plan with the following exceptions/additions: None Subjective Pt reports feeling well this morning. States her breathing feels better and was on RA during my assessment. Continues with a non-productive cough. Anticipating bronchoscopy tomorrow. Reports her appetite was better this AM but fair overall. Verbalizes no complaints at this time. Review of Systems Constitutional: no fever and no chills Respiratory: + cough; no dyspnea and no sputum production Cardiovascular: no chest pain and no edema Gastrointestinal: no abdominal pain, no nausea, no vomiting, no constipation and no diarrhea/loose stools Genitourinary: no dysuria Physical Exam Constitutional: no acute distress and not ill appearing Eyes: + anicteric sclerae ENMT: Ears: no hearing impairment Neck: normal visual inspection and trachea midline Respiratory: normal respiratory effort and + cough Auscultation: + crackles; no wheezes Cardiovascular: Rate/Rhythm: regular rate and regular rhythm Extremities: + edema (trace pitting in lower extremities b/l) Gastrointestinal (Abdomen): Inspection/Auscultation: normal bowel sounds Percussion/Palpation: abdomen soft; abdomen nontender Musculoskeletal: Head/Neck/Chest: normocephalic, head atraumatic and neck sup ple Skin: no rashes, warm and dry Neurologic: moves all extremities Psychiatric: A+Ox3, euthymic affect Results & Data Vital Signs (Past 12 Hours) Vital Signs Temp Pulse Pulse Resp BP Pulse Ox 10/12/18 19:28 103 H 18 93 10/12/18 15:16 107 H 16 91 10/12/18 15:00 37 C 103 H 20 131/75 91 10/12/18 11:06 102 H 16 93 10/12/18 07:40 94 H 16 93 (1) Pneumonia Laterality: right Lung location: unspecified part of lung Pneumonia type: due to unspecified organism Qualified Code(s): J18.9 - Pneumonia, unspecified organism
[2018-10-12] MEDS: ATORVASTATIN 20 MG TAB PO SCH (21:54)
[2018-10-13] MEDS: VANCOMYCIN HCL 1,000 MG in SODIUM CHLORIDE 0.9% 250 ML IV SCH ×2 (00:40→17:22)
[2018-10-13] MEDS: ALBUT/IPRATROP 3MG/0.5MG NEB 3 ML VIAL NEB SCH ×6 (03:15→23:12)
[2018-10-13 06:05] LABS: Hematocrit (blood only) 24.9 % (37-47); Hemoglobin 8.4 g/dL (12.0-16.0); Mean Corpuscular Hgb Conc 33.7 g/dL (32-36); Mean Platelet Volume 8.8 fL (7.4-10.4); Platelet Count 363 K/uL (130-400); RDW Coefficient of Variation 15.9 % (11.5-14.5); RDW Standard Deviation 54.7 fL (36.4-46.3); Red Blood Count 2.65 M/uL (4.2-5.4)
[2018-10-13 06:57] LABS: Calcium 8.6 mg/dl (8.5-10.1); Creatinine Clr Calc Pharmacy 55.6 ml/min; Est GFR (African American) 83.5; Est GFR (Non-African American) 72.1; Ferritin 1024.8 ng/ml (8-388); Potassium 3.7 mmol/L (3.5-5.1)
[2018-10-13] MEDS: methylPREDNISolone 40 MG in SYRINGE 0 ML IV SCH ×2 (07:40→20:26)
[2018-10-13] MEDS: FUROSEMIDE 40 MG TAB PO SCH (07:40)
[2018-10-13] MEDS: dilTIAZem HCL 180 MG CAPCR PO SCH (07:40)
[2018-10-13] MEDS: LOSARTAN POTASSIUM 50 MG TAB PO SCH (07:40)
[2018-10-13] MEDS: guaiFENesin 600 MG TABCR PO SCH ×2 (07:41→20:30)
[2018-10-13] MEDS: BUDESONIDE/FORMOTEROL FUMARATE 160/4.5 60 PUFFS/INHALER INH SCH ×2 (07:41→20:32)
[2018-10-13] MEDS: PANTOprazole 40 MG TAB PO SCH ×2 (07:41→20:31)
[2018-10-13] MEDS: PARoxetine HCl 20 MG TAB PO SCH (07:41)
[2018-10-13 07:59] LABS: Folate (Folic Acid) 8.55 ng/ml (>5.38)
--- NOTE | 2018-10-13 08:14 | Surgery Progress Note ---
Date of Service October 13, 2018 Assessment & Plan (1) Lung cancer: -concern for post-obstructive pneumonia on admission CXR -tent. planned for FOB time to be determine by Dr. Torres Subjective Pt. doing well. She notes her breathing has been stable the past 24-48 hours. Physical Exam Respiratory: normal respiratory effort; does not use accessory muscles BS with decrease at bases Results & Data Vital Signs (Past 12 Hours) Vital Signs Temp Pulse Resp BP Pulse Ox 10/13/18 07:54 36.8 C 109 H 16 159/78 H 90 10/13/18 07:01 96 H 18 95 10/13/18 04:51 36.7 C 98 H 20 135/72 92 10/13/18 03:17 83 18 94 10/12/18 23:15 100 H 17 94 10/12/18 23:11 36.6 C 96 H 20 153/74 H 94
[2018-10-13] MEDS: CEFEPIME 2,000 MG in SYRINGE 7.5 ML IV SCH ×2 (09:30→20:26)
[2018-10-13] MEDS ORDERED: LIDOCAINE 4% INH SOLN 4 ML BTL INH ONE (13:06)
--- NOTE | 2018-10-13 13:09 | History & Physical Bridge Note ---
Date of Service October 13, 2018 History & Physical Bridge Note I have examined the patient, reviewed the History & Physical and in the interval since the performance of the History & Physical I have noted the following changes of clinical significance: no changes noted
--- NOTE | 2018-10-13 13:10 | Pre Anesthesia Assessment ---
Date of Service October 13, 2018 Pre Sedation Assessment Vital Signs Temp Pulse Pulse Pulse Resp BP Pulse Ox 10/13/18 13:00 97 H 157/80 H 94 10/13/18 12:55 101 H 154/74 H 84 L 10/13/18 11:09 101 H 18 91 10/13/18 11:07 36.8 C 95 H 16 122/75 90 10/13/18 09:00 88 10/13/18 07:54 36.8 C 109 H 16 159/78 H 90 10/13/18 07:01 96 H 18 95 10/13/18 04:51 36.7 C 98 H 20 135/72 92 10/13/18 03:17 83 18 94 10/12/18 23:15 100 H 17 94 10/12/18 23:11 36.6 C 96 H 20 153/74 H 94 10/12/18 19:28 103 H 18 93 10/12/18 19:16 36.8 C 104 H 18 134/75 90 10/12/18 15:16 107 H 16 91 10/12/18 15:00 37 C 103 H 20 131/75 91 Pre-Sedation Airway Assessment Smoking Status: Former smoker Hx Sleep Apnea: No Hx Difficult Intubation: No Short, Thick Neck: No Thyromental Distance: > or= 3.5 Finger Breadths Oral Cavity: + Chipped Teeth Mallampati Class: II ASA: ASA3 NPO Status Date of Last Intake of Fluids: 10/12/18 Time of Last Intake of Fluids: 23:30 Date of Last Intake of Solid Food: 10/12/18 Time of Last Intake of Solid Foods: 23:00 Notes The planned sedation has been discussed with the patient. Informed Consent was obtained. I have identified the patient, determined the appropriateness of sedation and have assessed the patient immediately prior to the procedure. All medicine(s) and interventions are by my order.
--- NOTE | 2018-10-13 13:20 | Post Operative Brief Note ---
Immediate Post Op Note v1 Date of Surgery October 13, 2018 Pre & Post Diagnosis Operation Date: 10/13/18 13:00 Pre-Op Diagnosis: Stenosis of Right Upper Lobe Bronchus Post-Op Diagnosis: Stenosis of Right Upper Lobe Bronchus Procedure Operation Date: 10/13/18 13:00 Actual Procedures p Bronchoscopy Radiology(Bilateral) - Elfego Torres MD, FACS Surgeon Elfego Torres MD, FACS [employer] Estimated Blood Loss 0 Findings Consistent with Post-Op Diagnosis
--- NOTE | 2018-10-13 13:20 | Post Anesthesia Assessment ---
Date of Service October 13, 2018 Post Sedation Assessment Vital Signs Temp Pulse Pulse Pulse Resp BP Pulse Ox 10/13/18 13:15 92 H 16 163/82 H 97 10/13/18 13:10 101 H 16 157/82 H 94 10/13/18 13:00 97 H 157/80 H 94 10/13/18 12:55 101 H 154/74 H 84 L 10/13/18 11:09 101 H 18 91 10/13/18 11:07 36.8 C 95 H 16 122/75 90 10/13/18 09:00 88 10/13/18 07:54 36.8 C 109 H 16 159/78 H 90 10/13/18 07:01 96 H 18 95 10/13/18 04:51 36.7 C 98 H 20 135/72 92 10/13/18 03:17 83 18 94 10/12/18 23:15 100 H 17 94 10/12/18 23:11 36.6 C 96 H 20 153/74 H 94 10/12/18 19:28 103 H 18 93 10/12/18 19:16 36.8 C 104 H 18 134/75 90 10/12/18 15:16 107 H 16 91 10/12/18 15:00 37 C 103 H 20 131/75 91 Post Sedation Plan On clinical assessment, the patient appears to have tolerated the sedation without complications. Patient is recovering as anticipated. Patient will continue to be monitored by nursing and may be discharged when sedation discharge criteria are met per below protocol. Upon Completions of procedure and additional 15 minutes continue every 5 minute vital signs and the P.A.R. score; then discharge to a Phase I or Fast Track to Phase II per the following guidelines: * Discharge Patient to appropriate Phase II area if PAR is 8 or greater or return to pre- procedure baseline. The post - procedure orders will be as directed. * If PAR score is less than 8 or not return to pre-procedure baseline then patient will follow Phase I monitoring till PAR is reached for Phase II. The Phase I may be done in procedure room or may call to secure a Phase I area. * If naloxone or flumazenil are used for reversal, hold in Phase I for continued monitoring from when last reversal dose was given for a minimum of 60 minutes or longer pending the nurse and/or physician discretion of patient condition before discharge to Phase II. Please call the Sedation Physician to re-evaluate and complete post-note for discharge to Phase II area. Do NOT discharge from procedure sedation or Phase 1 until post- sedation evaluation note is complete by procedure /sedation MD Sedation Discharge Instructions to be given to the patient at discharge to home.
[2018-10-13] MEDS ORDERED: LIDOCAINE HCL 2% (LOCAL) INJ 50 ML VIAL INFIL STA (13:22)
[2018-10-13] MEDS ORDERED: fentaNYL citrate 100 MCG/2 ML VIAL IV ONE (13:22)
[2018-10-13] MEDS ORDERED: LIDOCAINE HCL VISCOUS SOLN 2% 15 ML UDC MT ONE (13:22)
[2018-10-13] MEDS ORDERED: MIDAZOLAM HCL 1 MG/ML 2ML VIAL IV STA (13:22)
[2018-10-13] MEDS: ATORVASTATIN 20 MG TAB PO SCH (20:31)
--- NOTE | 2018-10-13 21:49 | Operative Report ---
DATE OF OPERATION: 10/13/2018 PREOPERATIVE DIAGNOSES: 1. Apparent stenosis, right upper lobe bronchus. 2. Yld-slzyg-meim lung carcinoma. POSTOPERATIVE DIAGNOSES: 1. Stenosis of right upper lobe bronchus with hypoinflation of right upper lobe. 2. History of [id number] lung carcinoma. PROCEDURE: Fiberoptic bronchoscopy with bronchial washings. 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. 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 This was at least N2 disease. She has been treated with radiation as well as chemotherapy. The patient presented, she has been short of breath and she appears to have an infiltrate in her right upper lobe and I was asked to perform a bronchoscopy for her sputum collection and also to evaluate her airways. On 10/13/2018, the patient underwent an uncomplicated fiberoptic bronchoscopy and she tolerated it very well and had enough sedation where she was comfortable and she was able to converse with us. The patient had a highly stenotic right upper lobe orifice. I did washings from this area for microbiology. She really did not have much in the way of sputum in either bronchial tree. She tolerated it well. DESCRIPTION OF PROCEDURE: The patient was brought to the bronchoscopy suite. She was given sedation after appropriate timeout had been called and topical analgesia had been placed in her right naris as well as a Xylocaine nebulizer. I placed a fiberoptic bronchoscope through her right naris. This went without difficulty to her epiglottis and we can easily see her vocal cords and 2% Xylocaine were injected over this. She coughed mildly at this and then going down through the cords, we sprayed Xylocaine again into the trachea. I saw no tracheal abnormalities. Attention was first turned to the left tertiary bronchi and saw no evidence of any significant sputum or endobronchial lesions. Going back down the right, the right upper lobe orifice was very tight. It was circumferentially small with smooth mucosa which was mildly inflamed. There was really not much in the way of sputum. I inspected the lower lobe and middle lobe traversing the bronchus intermedius and she had a scant amount of yellow sputum. I suctioned out the right upper lobe after irrigating this with normal saline and we got scant amount of yellow sputum. We had no bleeding. At this point, we could see how tight this was. I concluded the bronchoscopy by slowly removing the bronchoscope and we saw no evidence of bleeding or sputum. We are going to regroup and decide the best way to approach this. She is symptomatic from this stenosis. She may require a stent, but I will discuss this with our staff. I attest to the content of the Intraoperative Record and any orders documented therein. Any exception s are noted below.
--- NOTE | 2018-10-13 22:14 | Hospitalist Progress Note ---
Date of Service October 13, 2018 Assessment & Plan (1) Pneumonia: - Had multiple admissions with length of stay for the majority of August into September - treated for pneumonia and neutropenic sepsis at that time - CXR with progressive changes to the RUL with noted nodule in this region - recent hospital admission and therefore at risk for healthcare associated pneumonia/gram-neg, vs MRSA vs post-obstructive PNA vs fungal? - Placed on Cefepime 2 g IV BID and Vancomycin; Cx from bronchoscopy with few gram + cocci and bacilli on gram stain and will await further developments - Duonebs ERICKA and PRN; Mucinex BID - CT Surg consulted - S/P Bronchoscopy on 10/13 with evidence of RUL bronchus stenosis however not much sputum - anticipating stenting on 10/14 (2) Hypoxia: - This is likely an acute respiratory failure related to the above and underlying COPD and bronchus stenosis; Reports she normally does not utilize supplemental O2 - Solu-Medrol 40 mg IV daily; Symbicort BID; Further treatment as above (3) Anemia: - Appears to have anemia of chronic disease - progressive reduction over past labs - Some iron indices skewed due to concurrent inflammatory processes at this time - anemia is normocytic; iron WNL with low TIBC/transferrin, B12/Folate WNL - Ferritin likely reactive - Can continue to monitor - can be further addressed with Dr. 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 Buck - Last chemotherapy in July - reports her treatment is due to change and has F/U appointment for October 23 (7) Hypertension: - Losartan 50 mg daily; Diltiazem 180 mg daily; Lasix 40 mg daily (8) DVT prophylaxis: - Lovenox - hold for stenting and then can resume Disposition: Await bronchoscopy and culture to tailor therapy Supervising Physician Co-Signing Physician Notes PA Supervision Note: I did not personally see or examine the patient today, but I verified all phillip points of SURESH Clements's assessment and plan with the following excepti ons/additions: None Subjective Patient evaluated after bronchoscopy today and states she feels well. Does not feel SOB but states her sats dropped to mid 80s when ambulating to wheelchair prior to the bronchoscopy She continues with a non-productive cough. Hasn't eating since bronchoscopy and is awaiting something to drink. Review of Systems Constitutional: no fever and no chills Ear, Nose, Mouth, Throat: + dry mouth; no sore throat and no dysphagia Respiratory: + cough; no dyspnea and no sputum production Cardiovascular: no chest pain, no palpitations and no edema Gastrointestinal: no abdominal pain, no nausea, no vomiting, no constipation and no diarrhea/loose stools Genitourinary: no dysuria Integumentary: no rash Physical Exam Constitutional: well developed and well nourished; no acute distress and not ill appearing Eyes: + anicteric sclerae Neck: normal visual inspection and trachea midline Respiratory: normal respiratory effort Auscultation: + rhonchi (mostly of RUL) and + wheezes (mostly in RUL) Cardiovascular: Rate/Rhythm: regular rate and regular rhythm Gastrointestinal (Abdomen): Inspection/Auscultation: normal bowel sounds Percussion/Palpation: abdomen soft; abdomen nontender Musculoskeletal: Head/Neck/Chest: normocephalic, head atraumatic and neck supple Skin: no rashes, warm and dry Neurologic: moves all extremities Psychiatric: A+Ox3, euthymic affect Results & Data Vital Signs (Past 12 Hours) Vital Signs Temp Pulse Pulse Resp BP BP Pulse Ox 10/13/18 19:36 36.8 C 102 H 21 149/73 H 94 10/13/18 19:09 100 H 18 94 10/13/18 16:00 91 H 10/13/18 15:20 37.0 C 93 H 16 126/72 94 10/13/18 15:06 74 18 95 10/13/18 13:32 98 H 16 150/74 H 96 10/13/18 13:30 97 H 16 140/73 96 10/13/18 13:25 96 H 16 140/73 96 10/13/18 13:20 99 H 16 127/82 95 10/13/18 13:15 92 H 16 163/82 H 97 10/13/18 13:10 101 H 16 157/82 H 94 10/13/18 13:00 97 H 157/80 H 94 10/13/18 12:55 101 H 154/74 H 84 L 10/13/18 11:09 101 H 18 91 10/13/18 11:07 36.8 C 95 H 16 122/75 90 (1) Anemia Anemia type: unspecified type Qualified Code(s): D64.9 - Anemia, unspecified (2) Pneumonia Laterality: right Lung location: unspecified part of lung Pneumonia type: due to unspecified organism Qualified Code(s): J18.9 - Pneumonia, unspecified organism
[2018-10-14] MEDS: ALBUT/IPRATROP 3MG/0.5MG NEB 3 ML VIAL NEB SCH ×6 (03:51→23:06)
[2018-10-14 07:13] LABS: Hematocrit (blood only) 25.1 % (37-47); Hemoglobin 8.4 g/dL (12.0-16.0); Mean Corpuscular Hgb Conc 33.5 g/dL (32-36); Mean Corpuscular Volume 95.1 fL (80-100); Mean Platelet Volume 8.8 fL (7.4-10.4); Platelet Count 346 K/uL (130-400); RDW Coefficient of Variation 15.9 % (11.5-14.5); RDW Standard Deviation 55.4 fL (36.4-46.3); Red Blood Count 2.64 M/uL (4.2-5.4)
[2018-10-14] MEDS: FUROSEMIDE 40 MG TAB PO SCH (07:39)
[2018-10-14] MEDS: LOSARTAN POTASSIUM 50 MG TAB PO SCH (07:39)
[2018-10-14] MEDS: PANTOprazole 40 MG TAB PO SCH ×2 (07:39→20:41)
[2018-10-14] MEDS: guaiFENesin 600 MG TABCR PO SCH ×2 (07:39→20:41)
[2018-10-14] MEDS: BUDESONIDE/FORMOTEROL FUMARATE 160/4.5 60 PUFFS/INHALER INH SCH ×2 (07:40→20:40)
[2018-10-14] MEDS: methylPREDNISolone 40 MG in SYRINGE 0 ML IV SCH (07:40)
[2018-10-14] MEDS: dilTIAZem HCL 180 MG CAPCR PO SCH (07:40)
[2018-10-14] MEDS: PARoxetine HCl 20 MG TAB PO SCH (07:40)
[2018-10-14 07:46] LABS: BUN Creatinine Ratio 19.3 (10-20); Calcium 8.6 mg/dl (8.5-10.1); Creatinine Clr Calc Pharmacy 63.5 ml/min; Est GFR (African American) 99.6; Potassium 3.1 mmol/L (3.5-5.1)
[2018-10-14] MEDS ORDERED: POTASSIUM CHLORIDE 20 MEQ TABCR PO STA (07:59)
[2018-10-14] MEDS: CEFEPIME 2,000 MG in SYRINGE 7.5 ML IV SCH ×2 (10:31→22:04)
[2018-10-14] MEDS ORDERED: VANCOMYCIN TROUGH ONE (11:30)
[2018-10-14] MEDS ORDERED: POTASSIUM CHLORIDE 20 MEQ TABCR PO ONE (13:00)
--- NOTE | 2018-10-14 13:40 | Progress Note ---
DATE: 10/14/2018 I had a long talk with Ms. Arellano in the hospital today. I have explained to her that I think that she would have improvement with a small stent placed in her right upper lobe bronchus. I have discussed this with [employer] who is a company that makes these stents and there is a new 6 mm x 15 mm stent that we will insert. I told that we would plan on taking that out; however, at this point, I think that based on what I see bronchoscopically, I would like to put a stent down to help open up this airway. She has collapse of her right upper lobe. I have tentatively scheduled this for 10/16/2018. I will talk to her family about this. She looks quite good today, however. Her 24-hour cultures from our bronchoscopy specimen showed no evidence of any growth. Our fungal smear is negative.
[2018-10-14] MEDS ORDERED: MAGNESIUM OXIDE 400 MG TAB PO ONE (13:52)
--- NOTE | 2018-10-14 13:58 | Hospitalist Progress Note ---
Date of Service October 14, 2018 Assessment & Plan (1) Pneumonia: - Had multiple admissions with length of stay for the majority of August into September - treated for pneumonia and neutropenic sepsis at that time. - CXR showed progressive changes to the RUL with noted nodule in this region. - S/p bronch on 10/13/18; cultures are negative to date. - Will continue Cefepime 2 gm IV BID for empiric coverage; will d/c Vanco IV in setting of negative cultures. - Duonebs q4hr scheduled; Mucinex 1,200 mg BID. - CT surgery consulted, plan for RUL stenting on 10/16/2018. (2) Hypoxia: - Likely related to pneumonia vs. underlying COPD vs. lung cancer, along with collapsed RUL - On room air at home; has been requiring 2-3L via NC during this admission. - Continue Solu-medrol 40 mg IV daily -- will transition to PO steroids likely on 10/15/18. (3) Anemia: - Anemia likely related to anemia of chronic disease vs. previous chemotherapy. - Monitor H/H frequently. (4) COPD (chronic obstructive pulmonary disease): - Oxygen requirements as noted above; no evidence of severe acute exacerbation. - Continue Solu-medrol 40 mg IV daily. - Continue home Symbicort as prescribed; Duonebs q4hr ATC. - Currently receiving IV abx for treatment of PNA. (5) Dysphagia: - Chronic issue, diet ordered appropriately. 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 Pulido. - Last chemotherapy in July; has f/u appt scheduled 10/25/18. (7) Hypertension: - Continue Losartan 50 mg daily, Diltiazem 180 mg daily, Lasix 40 mg daily. (8) Depression: - Continue Paxil as prescribed. (9) Anxiety: - Continue Paxil as prescribed. (10) Hyperlipidemia: - Continue statin as prescribed. (11) Electrolyte abnormality: - K level 3.1 -- ordered K 60 mEq PO. - Mag level 1.6 -- ordered mag oxide 400 mg PO x 1. - Monitor levels qAM. (12) DVT prophylaxis: - Lovenox; will hold after dose on 10/15/18. Dispo: Discharge pending improvement in hypoxia and completion of RUL stent on 10/16/18. PT/OT ordered. Supervising Physician Co-Signing Physician Notes PA Supervision Note: I did not personally see or examine the patient today, but I verified all phillip points of SURESH Perez's assessment and plan with the following exceptions/additions: None Subjective Pt is doing well overall. Remains on 2-3L via NC. Has mild SOB with exertion, denies SOB at rest. Has non-prod cough, denies chest pain, N/V, constipation. Plan for right upper lobe stent placement on 10/16/18, will need to remain inpatient until procedure is completed. Review of Systems Review of Systems: All systems reviewed & are unremarkable except as noted in HPI & below Constitutional: no fever, no chills, no fatigue, no weakness and no anorexia Respiratory: + cough and + dyspnea on exertion; no chest congestion, no dyspnea, no pain with cough, no sputum production and no wheezing Cardiovascular: no chest pain, no palpitations and no edema Gastrointestinal: no abdominal pain, no nausea, no vomiting and no constipation Genitourinary: no difficulty urinating Musculoskeletal: no joint pain and no myalgia Integumentary: no non-healing lesions Allergy / Immunological: no rash Physical Exam Physical Exam: General: Resting comfortably HEENT: NC/AT; PERRLA with EOMI; [place] conjunctiva, MMM. Neck: Supple and nontender Cardiac: RRR Lungs: on 3L via NC; rhonchi noted in RUL, otherwise clear throughout. Abdomen: Bowel normoactive X 4; Nontender to palpation Extremities: Warm. No edema present Neuro: No focal weakness Skin: No rash Results & Data Vital Signs (Past 12 Hours) Vital Signs Temp Pulse Pulse Resp BP BP Pulse Ox 10/14/18 11:22 95 H 18 96 10/14/18 08:00 86 10/14/18 07:48 36.5 C 92 H 20 135/74 97 10/14/18 07:02 87 16 97 10/14/18 04:00 36.5 C 113 H 21 148/76 H 90 10/14/18 03:51 95 H 18 93 Laboratory Results 10/14/18 10/14/18 10/14/18 Range/Units 06:29 06:29 06:29 WBC 4.00 L (4.8-10.8) K/uL RBC 2.64 L (4.2-5.4) M/uL Hgb 8.4 L (12.0-16.0) g/dL Hct 25.1 L (37-47) % MCV 95.1 (80-100) fL MCH 31.8 (25-34) pg MCHC 33.5 (32-36) g/dL RDW Std Deviation 55.4 H (36.4-46.3) fL RDW Coeff of Filemon 15.9 H (11.5-14.5) % Plt Count 346 (130-400) K/uL MPV 8.8 (7.4-10.4) fL Sodium 137 (136-145) mmol/L Potassium 3.1 L D (3.5-5.1) mmol/L Chloride 98 (98-107) mmol/L Carbon Dioxide 35 H (21-32) mmol/L Anion Gap 4.0 (3-11) BUN 14 (7-18) mg/dl Creatinine 0.70 (0.6-1.2) mg/dl Est Cr Clr Drug Dosing 63.5 ml/min Est GFR ( Amer) 99.6 Est GFR (Non-Af Amer) 86.0 BUN/Creatinine Ratio 19.3 (10-20) Glucose 198 H (70-99) mg/dl Calcium 8.6 (8.5-10.1) mg/dl Magnesium 1.6 L (1.8-2.4) mg/dl BAL A.galactomannan Ag BAL A.galactomann Index 10/13/18 Range/Units Unknown WBC (4.8-10.8) K/uL RBC (4.2-5.4) M/uL Hgb (12.0-16.0) g/dL Hct (37-47) % MCV (80-100) fL MCH (25-34) pg MCHC (32-36) g/dL RDW Std Deviation (36.4-46.3) fL RDW Coeff of Filemon (11.5-14.5) % Plt Count (130-400) K/uL MPV (7.4-10.4) fL Sodium (136-145) mmol/L Potassium (3.5-5.1) mmol/L Chloride (98-107) mmol/L Carbon Dioxide (21-32) mmol/L Anion Gap (3-11) BUN (7-18) mg/dl Creatinine (0.6-1.2) mg/dl Est Cr Clr Drug Dosing ml/min Est GFR ( Amer) Est GFR (Non-Af Amer) BUN/Creatinine Ratio (10-20) Glucose (70-99) mg/dl Calcium (8.5-10.1) mg/dl Magnesium (1.8-2.4) mg/dl BAL A.galactomannan Ag Pending BAL A.galactomann Index Pending (1) Anemia Anemia type: unspecified type Qualified Code(s): D64.9 - Anemia, unspecified (2) Pneumonia Laterality: right Lung location: unspecified part of lung Pneumonia type: due to unspecified organism Qualified Code(s): J18.9 - Pneumonia, unspecified organism
[2018-10-14] MEDS: ENOXAPARIN INJ 40 MG/0.4 ML SYR SQ SCH (14:23)
[2018-10-14] MEDS: ATORVASTATIN 20 MG TAB PO SCH (20:41)
[2018-10-15] MEDS: ALBUT/IPRATROP 3MG/0.5MG NEB 3 ML VIAL NEB SCH ×6 (03:22→23:24)
[2018-10-15 06:52] LABS: Calcium 8.7 mg/dl (8.5-10.1); Creatinine Clr Calc Pharmacy 55.4 ml/min; Est GFR (African American) 83.5; Est GFR (Non-African American) 72.1; Magnesium 1.8 mg/dl (1.8-2.4); Potassium 3.6 mmol/L (3.5-5.1)
[2018-10-15] MEDS: ENOXAPARIN INJ 40 MG/0.4 ML SYR SQ SCH (07:42)
[2018-10-15] MEDS: BUDESONIDE/FORMOTEROL FUMARATE 160/4.5 60 PUFFS/INHALER INH SCH ×2 (07:42→19:45)
[2018-10-15] MEDS: methylPREDNISolone 40 MG in SYRINGE 0 ML IV SCH (07:42)
[2018-10-15] MEDS: PANTOprazole 40 MG TAB PO SCH ×2 (07:43→19:44)
[2018-10-15] MEDS: guaiFENesin 600 MG TABCR PO SCH ×2 (07:43→19:44)
[2018-10-15] MEDS: PARoxetine HCl 20 MG TAB PO SCH (07:43)
[2018-10-15] MEDS: LOSARTAN POTASSIUM 50 MG TAB PO SCH (07:43)
[2018-10-15] MEDS: FUROSEMIDE 40 MG TAB PO SCH (07:44)
[2018-10-15] MEDS: dilTIAZem HCL 180 MG CAPCR PO SCH (07:44)
--- NOTE | 2018-10-15 09:00 | Anesthesiology Consultation ---
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 Surgery Operation Date: 10/13/18 13:00 Proposed Procedures p Bronchoscopy Radiology(Bilateral) - Elfego Torres MD, FACS Operation Date: 10/16/18 12:30 Proposed Procedures p Right Upper Lobe Stent Insertion, Fiberoptic Bronchoscopy - Elfego Torres MD, FACS Height/Weight Height: 5 ft Weight: 73.7 kg Allergies Allergy/AdvReac Type Severity Reaction Status Date / Time hydrochlorothiazide AdvReac Intermediate DIZZY, Verified 10/10/18 18:17 "LOOPY" FEELING Medications Home Medications Medication Instructions Recorded Confirmed Last Taken Symbicort 1 puff INHALATION BID 03/27/18 10/10/18 04/01/18 04:00 albuterol sulfate [Proventil HFA] 2 puff INHALATION Q6H PRN 03/27/18 10/10/18 04/01/18 04:00 alprazolam 0.25 mg PO BID PRN 03/27/18 10/10/18 03/31/18 20:00 aspirin 81 mg PO QAM 03/27/18 10/10/18 10/10/18 atorvastatin 20 mg PO QPM 03/27/18 10/10/18 03/31/18 20:00 ipratropium-albuterol 3 ml INHALATION QID 03/27/18 10/10/18 04/01/18 04:00 lansoprazole [Prevacid] 15 mg PO BID 03/27/18 10/10/18 04/01/18 04:00 multivitamin 1 tab PO QAM 03/27/18 10/10/18 10/10/18 paroxetine HCl 20 mg PO QAM 03/27/18 10/10/18 10/10/18 tramadol 50 mg tablet 50 mg PO Q8H PRN #30 tab 07/21/18 10/10/18 Unknown diltiazem HCl [Cardizem CD] 180 mg PO DAILY 10/10/18 10/10/18 Unknown furosemide 40 mg PO DAILY 10/10/18 10/10/18 Unknown losartan 50 mg PO DAILY 10/10/18 10/10/18 Unknown Active Medications Generic Name Dose Route Start Last Admin Trade Name Freq PRN Reason Stop Dose Admin Acetaminophen 650 mg 10/10/18 20:14 10/14/18 07:40 Tylenol PO 11/09/18 20:13 650 mg Q4H PRN Administration Pain or Fever Albuterol 3 ml 10/10/18 20:14 10/15/18 07:01 Duoneb NEB 11/09/18 20:13 3 ml Q4R ERICKA Administration Aspirin 81 mg 10/11/18 09:00 10/12/18 08:41 Ecotrin Ectab PO 11/10/18 08:59 81 mg QAM ERICKA Administration Atorvastatin Calcium 20 mg 10/10/18 21:00 10/14/18 20:41 Lipitor PO 11/09/18 20:59 20 mg QPM ERICKA Administration Budesonide/Formoterol Fumarate 1 puffs 10/10/18 21:00 10/15/18 07:42 Symbicort 160mcg/4.5mcg INH 11/09/18 20:59 1 puffs BID ERICKA Administration Diltiazem HCl 180 mg 10/11/18 09:00 10/15/18 07:44 Cardizem Cd PO 11/10/18 08:59 180 mg DAILY ERICKA Administration Enoxaparin Sodium 40 mg 10/14/18 14:00 10/15/18 07:42 Lovenox SQ 10/16/18 13:59 40 mg QAM ERICKA Administration Furosemide 40 mg 10/11/18 09:00 10/15/18 07:44 Lasix PO 11/10/18 08:59 40 mg DAILY ERICKA Administration Guaifenesin 1,200 mg 10/11/18 21:00 10/15/18 07:43 Mucinex PO 11/10/18 20:59 1,200 mg Q12 ERICKA Administration Cefepime HCl 2,000 mg/ Syringe 20 mls @ 5.5 mls/min 10/10/18 22:00 10/14/18 22:04 IV 10/17/18 21:59 5.5 mls/min Q12H ERICKA Administration Protocol Methylprednisolone 40 mg/ 0.64 mls @ 1.5 mls/min 10/14/18 09:00 10/15/18 07:42 Syringe IV 11/13/18 08:59 1.5 mls/min DAILY ERICKA Administration Losartan Potassium 50 mg 10/11/18 09:00 10/15/18 07:43 Cozaar PO 11/10/18 08:59 50 mg DAILY ERICKA Administration Pantoprazole Sodium 40 mg 10/10/18 21:00 10/15/18 07:43 Protonix PO 11/09/18 20:59 40 mg BID ERICKA Administration Paroxetine HCl 20 mg 10/11/18 09:00 10/15/18 07:43 Paxil PO 11/10/18 08:59 20 mg QAM ERICKA Administration NPO Date Last Intake of Fluids: 10/12/18 Time Last Intake of Fluids: 23:30 Date Last Intake of Solids: 10/12/18 Time Last Intake of Solids: 23:30 Past Medical History Medical History Sarcopenia Acute respiratory failure with hypoxia Encephalopathy Pneumonia (Acute) Neutropenic sepsis Hyponatremia (Acute) Cellulitis of left lower extremity (Acute) Cancer of right lung (Acute) 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 Radiation completed June 25, 2018. She received 6000 cGy. Difficult intubation LEFT FOOT RECONSTRUCTION= 12/28/16= GLIDESCOPE# 3 ETT 7.0 AT [facility] Hypertension (Chronic) Asthma (Chronic) COPD (chronic obstructive pulmonary disease) (Chronic) Hyperlipidemia (Chronic) Anxiety (Chronic) Depression (Chronic) Anemia (Chronic) Anxiety (Chronic) Asthma (Chronic) COPD (chronic obstructive pulmonary disease) (Chronic) Depression (Chronic) Dysphagia (Chronic) Hyperlipidemia (Chronic) Hypertension (Chronic) Irritable bowel disease (Chronic) Mediastinal lymphadenopathy (Chronic) Obesity (Chronic) Lung nodules Past Family History Family History Mother Dementia Father , Passed age 67 of Lung Cancer (Heavy Smoker) Lung cancer Brother , Passed in 68 of Liver Cancer Liver cancer Brother , Passed in 60's of DC Heart attack Brother COPD (chronic obstructive pulmonary disease) Sister No problems noted. Son No problems noted. Son No problems noted. Son No problems noted. Son No problems noted. Daughter No problems noted. Past Surgical History Surgical History S/P appendectomy (Chronic) S/P hysterectomy (Chronic) H/O: hysterectomy (Acute) History of appendectomy (Resolved) as teenager History of bronchoscopy (Resolved) Multiple History of cataract surgery (Resolved) 2012 - Bilat History of colonoscopy (Resolved) 2017 Hx of abdominal hysterectomy (Resolved) 1972 Hx of foot surgery (Resolved) 2014 & 2017 - LEFT X2 Hx of repair of rotator cuff (Resolved) 2009 - RIGHT Hx of total shoulder replacement (Resolved) 2015 - LEFT Social History Smoking Status: Former smoker tobacco type: cigarettes Smoking cigarettes per day: 1 pack/week Hx Alcohol Use: No Hx Substance Use: No substance use type: does not use Physical Exam Vital Signs Last Vital Signs Temp 98.1 F 10/15/18 07:48 Pulse 88 10/15/18 07:48 Resp 20 10/15/18 07:48 BP 138/72 10/15/18 07:48 Pulse Ox 91 10/15/18 07:48 Testing Electrocardiogram Date: 10/10/18 Findings: + ST @ (103 bpm) Chest X-Ray Date: 10/10/18 1. Heart and likely, emphysema, and postoperative change from right-sided pulmonary resection are again noted. 2. There is patchy airspace consolidations in the right mid to upper lung. This is new from 09/07/2018 and likely represents pneumonia. Posttreatment change and/or recurrent tumor could appear similar and clinical correlation will be required. 3. Pleural fluid is again noted in the right lung base. 4. The left lung appears clear. Echocardiogram Date: 06/19/15 EF 65-70%. No RWMA. Mild cLVH. Grade I DD. Mild AV sclerosis. Stress Test Date: 05/19/12 Negative stress ECHO/EKG for ischemia at 94% MPHR. 4 METS. EF 65%. Type I DD. No significant valvular disease. Laboratory Results 10/14/18 06:29 10/15/18 05:53 PT 12.2 Seconds (9.0-12.0) H 10/10/18 17:46 INR 1.2 (0.9-1.1) H 10/10/18 17:46 APTT 29.5 Seconds (21.0-31.0) 10/10/18 17:46 10/13/18 Unknown Gram Stain - Final Bronch Hope, Right Upper Lobe Bronchoalveolar Lavage Culture - Preliminary Light normal antoinette present, final report to follow. 10/13/18 Unknown Fungal Smear - Final Bronch Wash,Right Upper Lobe 10/10/18 17:46 Blood Culture - Preliminary Blood No growth to date. 10/10/18 17:46 Blood Culture - Preliminary Blood No growth to date.
[2018-10-15] MEDS: CEFEPIME 2,000 MG in SYRINGE 7.5 ML IV SCH ×2 (09:08→21:15)
--- NOTE | 2018-10-15 13:42 | Hospitalist Progress Note ---
Date of Service October 15, 2018 Assessment & Plan (1) Pneumonia: - Had multiple admissions with length of stay for the majority of August into September - treated for pneumonia and neutropenic sepsis at that time. - CXR showed progressive changes to the RUL with noted nodule in this region. - S/p bronch on 10/13/18; culture showed moderate normal resp antoinette. - Continue Cefepime 2 gm IV BID for empiric coverage (End date: 10/16/18) - Duonebs q4hr scheduled; Mucinex 1,200 mg BID. - CT surgery consulted, plan for RUL stenting on 10/16/2018. (2) Hypoxia: - Likely related to pneumonia vs. underlying COPD vs. lung cancer vs. collapsed RUL. - Now weaned to room air. - Continue Solu-medrol 40 mg IV daily -- convert to Prednisone 60 mg PO daily on 10/16/18. (3) Anemia: - Anemia likely related to anemia of chronic disease vs. previous chemotherapy. - Monitor H/H closely. (4) COPD (chronic obstructive pulmonary disease): - Oxygen requirements improved as noted above; no evidence of severe acute exacerbation. - Continue steroids and IV abx as noted above. - Continue home Symbicort as prescribed; Duonebs q4hr ATC. (5) Dysphagia: - Chronic issue, diet ordered appropriately. 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 Pulido. - Last chemotherapy in July; has f/u appt scheduled 10/25/18. (7) Hypertension: - Continue Losartan 50 mg daily, Diltiazem 180 mg daily, Lasix 40 mg daily. (8) Depression: - Continue Paxil as prescribed. (9) Anxiety: - Continue Paxil as prescribed. (10) Hyperlipidemia: - Continue statin as prescribed. (11) Electrolyte abnormality: - No replacement required. (12) DVT prophylaxis: - Hold Lovenox starting this evening for procedure. Dispo: Discharge pending completion of procedure on 10/16/18. Supervising Physician Co-Signing Physician Notes SURESH Supervision Note: I did not personally see or examine the patient today, but I verified all phillip points of SURESH Oropeza's assessment and plan with the following exceptions/additions: None Subjective Pt. is doing well overall. Now weaned to room air. Denies chest pain, SOB. Plan for RUL stent on 10/16/18. Review of Systems Review of Systems: All systems reviewed & are unremarkable except as noted in HPI & below Constitutional: no fever, no chills, no fatigue, no weakness and no anorexia Respiratory: no cough, no chest congestion, no dyspnea, no dyspnea on exertion and no wheezing Cardiovascular: no chest pain, no palpitations, no lightheadedness, no syncope and no edema Gastrointestinal: no abdominal pain, no nausea, no vomiting, no constipation and no diarrhea/loose stools Genitourinary: no difficulty urinating Musculoskeletal: no back pain and no joint pain Integumentary: no non-healing lesions Allergy / Immunological: no rash Physical Exam Physical Exam: General: Resting comfortably HEENT: NC/AT; PERRLA with EOMI; [place] conjunctiva, MMM. Neck: Supple and nontender Cardiac: RRR Lungs: on room air; clear throughout. Abdomen: Bowel normoactive X 4; Nontender to palpation Extremities: Warm. No edema present Neuro: No focal weakness Skin: No rash Results & Data Vital Signs (Past 12 Hours) Vital Signs Temp Pulse Resp BP Pulse Ox 10/15/18 11:16 36.7 C 93 H 20 155/79 H 91 10/15/18 11:07 93 H 16 91 10/15/18 07:48 36.7 C 88 20 138/72 91 10/15/18 07:02 88 16 91 10/15/18 06:15 20 92 10/15/18 04:00 37.0 C 96 H 21 135/68 94 10/15/18 03:24 84 20 97 Laboratory Results 10/15/18 Range/Units 05:53 Sodium 136 (136-145) mmol/L Potassium 3.6 D (3.5-5.1) mmol/L Chloride 98 (98-107) mmol/L Carbon Dioxide 34 H (21-32) mmol/L Anion Gap 4.0 (3-11) BUN 17 (7-18) mg/dl Creatinine 0.81 (0.6-1.2) mg/dl Est Cr Clr Drug Dosing 55.4 ml/min Est GFR ( Amer) 83.5 Est GFR (Non-Af Amer) 72.1 BUN/Creatinine Ratio 21.0 H (10-20) Glucose 162 H (70-99) mg/dl Calcium 8.7 (8.5-10.1) mg/dl Magnesium 1.8 (1.8-2.4) mg/dl (1) Anemia Anemia type: unspecified type Qualified Code(s): D64.9 - Anemia, unspecified (2) Pneumonia Laterality: right Lung location: unspecified part of lung Pneumonia type: due to unspecified organism Qualified Code(s): J18.9 - Pneumonia, unspecified organism
--- NOTE | 2018-10-15 17:13 | Progress Note ---
DATE: 10/15/2018 The patient was seen today. We had a long discussion about placing the stent tomorrow. We are going to place a 6 x 15 mm stent into her right upper lobe bronchus. We had a long talk about this possible complications and what our expected benefit is. We can remove the stent if it is an issue, but I think currently I would like to put this in and we will discuss her treatment modalities after we have opened up her right upper lobe.
[2018-10-15] MEDS: ATORVASTATIN 20 MG TAB PO SCH (19:45)
--- NOTE | 2018-10-15 20:05 | Surgery Progress Note ---
Date of Service October 15, 2018 Assessment & Plan (1) Lung cancer: -FOB performed earlier this admission and narrowing of portion of bronchial tree noted: -due to findings at time of FOB, Dr. Torres is planning on repeating FOB tomorrow with possible rigid bronch and stent placement -consent obtained and is on chart Subjective Pt. resting in bed and notes she is currently comfortable. Physical Exam Respiratory: normal respiratory effort; no respiratory distress and no labored breathing Results & Data Vital Signs (Past 12 Hours) Vital Signs Temp Pulse Pulse Resp BP Pulse Ox 10/15/18 19:37 37.1 C 102 H 18 135/67 92 10/15/18 19:27 95 H 16 94 10/15/18 16:00 83 10/15/18 15:32 36.9 C 93 H 18 133/74 92 10/15/18 15:03 90 18 90 10/15/18 11:16 36.7 C 93 H 20 155/79 H 91 10/15/18 11:07 93 H 16 91
[2018-10-16] MEDS: ALBUT/IPRATROP 3MG/0.5MG NEB 3 ML VIAL NEB SCH ×6 (03:38→23:29)
[2018-10-16 06:04] LABS: Hematocrit (blood only) 26.5 % (37-47); Mean Corpuscular Volume 95.3 fL (80-100); Mean Platelet Volume 8.8 fL (7.4-10.4); Platelet Count 341 K/uL (130-400); RDW Standard Deviation 54.8 fL (36.4-46.3); Red Blood Count 2.78 M/uL (4.2-5.4); White Blood Count 6.17 K/uL (4.8-10.8)
[2018-10-16 06:30] LABS: BUN Creatinine Ratio 22.6 (10-20); Calcium 9.2 mg/dl (8.5-10.1); Est GFR (African American) 75.5; Est GFR (Non-African American) 65.2; Magnesium 1.8 mg/dl (1.8-2.4); Potassium 3.5 mmol/L (3.5-5.1)
[2018-10-16] MEDS: BUDESONIDE/FORMOTEROL FUMARATE 160/4.5 60 PUFFS/INHALER INH SCH ×2 (07:47→21:06)
[2018-10-16] MEDS: PANTOprazole 40 MG TAB PO SCH ×2 (07:48→21:06)
[2018-10-16] MEDS: dilTIAZem HCL 180 MG CAPCR PO SCH (07:48)
[2018-10-16] MEDS: LOSARTAN POTASSIUM 50 MG TAB PO SCH (07:48)
[2018-10-16] MEDS: guaiFENesin 600 MG TABCR PO SCH ×2 (07:49→21:06)
[2018-10-16] MEDS: PARoxetine HCl 20 MG TAB PO SCH (07:49)
[2018-10-16] MEDS: FUROSEMIDE 40 MG TAB PO SCH (07:49)
--- NOTE | 2018-10-16 08:28 | History & Physical Bridge Note ---
Date of Service October 16, 2018 History & Physical Bridge Note I have examined the patient, reviewed the History & Physical and in the interval since the performance of the History & Physical I have noted the following changes of clinical significance: no changes noted
[2018-10-16] MEDS ORDERED: predniSONE 20 MG TAB PO SCH (09:00)
[2018-10-16] MEDS: CEFEPIME 2,000 MG in SYRINGE 7.5 ML IV SCH ×2 (09:51→21:06)
[2018-10-16] MEDS ORDERED: fentaNYL citrate 100 MCG/2 ML VIAL ONE ×2 (11:47→13:31)
[2018-10-16] MEDS ORDERED: LIDOCAINE HCL 2% 2 ML VIAL/AMP(20MG/ML) INFIL ONE (11:47)
[2018-10-16] MEDS ORDERED: NEOSTIGMINE METHYLSULFATE 5 MG/5 ML SYR ONE (11:47)
[2018-10-16] MEDS ORDERED: DEXAMETHASONE SOD INJ 4 MG/ML VIAL ONE (11:47)
[2018-10-16] MEDS ORDERED: ONDANSETRON INJ 2 MG/ML 2 ML VIAL ONE (11:47)
[2018-10-16] MEDS ORDERED: MIDAZOLAM HCL 1 MG/ML 2ML VIAL ONE (11:47)
[2018-10-16] MEDS ORDERED: GLYCOPYRROLATE 0.2 MG/ML VIAL ONE (11:47)
[2018-10-16] MEDS ORDERED: PROPOFOL IV EMULSION 10 MG/ML 20 ML VIAL IV ONE (11:47)
[2018-10-16] MEDS ORDERED: ePHEDrine sulfate 50 MG/ML AMP IV PRN (12:21)
[2018-10-16] MEDS ORDERED: fentaNYL citrate 100 MCG/2 ML VIAL IV PRN (12:21)
[2018-10-16] MEDS ORDERED: ONDANSETRON INJ 2 MG/ML 2 ML VIAL IV PRN (12:21)
[2018-10-16] MEDS ORDERED: ATROPINE SULFATE 0.1 MG/ML 10ML SYR IV PRN (12:21)
[2018-10-16] MEDS ORDERED: PHENYLEPHRINE 100MCG/ML 5ML SYR IV PRN (12:21)
[2018-10-16] MEDS ORDERED: HYDROmorphone INJ 1 MG/ML SYRINGE IV PRN (12:21)
[2018-10-16] MEDS ORDERED: CLINDAMYCIN PHOS 300 MG/2 ML VIAL ONE (13:26)
--- NOTE | 2018-10-16 14:00 | Post Operative Brief Note ---
Immediate Post Op Note v1 Date of Surgery October 16, 2018 Pre & Post Diagnosis Operation Date: 10/13/18 13:00 Pre-Op Diagnosis: Stenosis of Right Upper Lobe Bronchus Post-Op Diagnosis: Stenosis of Right Upper Lobe Bronchus Operation Date: 10/16/18 12:30 Pre-Op Diagnosis: Lung cancer Post-Op Diagnosis: Lung cancer Procedure Operation Date: 10/13/18 13:00 Actual Procedures p Bronchoscopy Radiology(Bilateral) - Elfego Torres MD, FACS Operation Date: 10/16/18 12:30 Actual Procedures p Right Upper Lobe Bronchus Stent Insertion, Fiberoptic Bronchoscopy(Not Applicable) - Elfego Torres MD, FACS Surgeon Elfego Torres MD, FACS 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
--- NOTE | 2018-10-16 14:02 | Fluoroscopy Report ---
FL chest 1V frontal CLINICAL HISTORY: RT UPPER LOBE STENT INSERTION COMPARISON STUDY: 03/06/2018 FLUOROSCOPY TIME: 40 seconds. NUMBER OF FLUOROSCOPIC IMAGES: 2 FINDINGS: 2 intraprocedural fluoroscopic spot images are divided for interpretation during a right co stophrenic and reported right upper lobe stent insertion. There is visualization of a stent projected over the expected location of the proximal right upper lobe bronchus. The stent demonstrates a moder ate waist. IMPRESSION: Intraoperative fluoroscopic spot images obtained during bronchoscopy and right upper lob e stent insertion Electronically signed by: Julio Eastman M.D. 10/16/2018 2:01 PM
[2018-10-16] MEDS ORDERED: ROCURONIUM BROMIDE 10 MG/ML 5 ML VIAL ONE (14:10)
--- NOTE | 2018-10-16 14:28 | XRay Report ---
XR chest 1V portable HISTORY: 73 years-old Female s/p bronchial stent status post placement of a right bronchial stent COMPARISON: Chest radiograph 10/10/2017, CTA chest 09/05/2018 TECHNIQUE: Portable AP view of the chest FINDINGS: Cardiomediastinal and hilar silhouettes are unchanged. Stent of the right mainstem bronchus is noted with chronic appearing changes of the right mid and right upper lung with chronic volume loss. Mild c ompensatory hyperinflation of the left lung which appears clear. There is no pneumothorax or large pl eural effusion. Multiple right-sided rib deformities redemonstrated. Left shoulder arthroplasty. Adva nced degenerative changes about the right shoulder. IMPRESSION: 1. Stent about the right mainstem bronchus is noted with chronic findings of the right lung redemonst rated. 2. Left lung is clear. 3. No pneumothorax. The above report was generated using voice recognition software. It may contain grammatical, syntax o r spelling errors. Electronically signed by: Puneet Murguia M.D. 10/16/2018 2:26 PM
--- NOTE | 2018-10-16 14:52 | Anesthesiology Progress Note ---
Date of Service October 16, 2018 Anesthesia Post Procedure Vital Signs Vital Signs: Temp Pulse Pulse Pulse Resp BP BP 10/16/18 14:40 36.6 C 90 22 122/59 L 10/16/18 14:30 86 24 128/56 L 10/16/18 14:20 92 H 26 H 117/80 10/16/18 14:10 92 H 29 H 136/69 10/16/18 14:02 37.7 C H 94 H 27 H 149/69 H 10/16/18 11:44 37.3 C 91 H 20 129/75 10/16/18 11:32 36.9 C 86 20 146/76 H 10/16/18 11:26 94 H 16 10/16/18 07:38 36.7 C 88 20 164/83 H 10/16/18 07:15 86 91 H 16 10/16/18 03:46 36.7 C 95 H 18 125/73 10/16/18 03:38 89 16 10/15/18 23:59 97 H 10/15/18 23:29 36.8 C 95 H 18 147/71 H 10/15/18 23:24 90 16 10/15/18 19:37 37.1 C 102 H 18 135/67 10/15/18 19:27 95 H 16 10/15/18 16:00 83 10/15/18 15:32 36.9 C 93 H 18 133/74 10/15/18 15:03 90 18 Pulse Ox 10/16/18 14:40 95 10/16/18 14:30 93 10/16/18 14:20 97 10/16/18 14:10 97 10/16/18 14:02 95 10/16/18 11:44 93 10/16/18 11:32 91 10/16/18 11:26 90 10/16/18 07:38 92 10/16/18 07:15 91 10/16/18 03:46 90 10/16/18 03:38 91 10/15/18 23:59 10/15/18 23:29 92 10/15/18 23:24 93 10/15/18 19:37 92 10/15/18 19:27 94 10/15/18 16:00 10/15/18 15:32 92 10/15/18 15:03 90 Transfer of Care Handoff Completed per policy Notes Mental Status: alert / awake / arousable Patient Amnestic to Procedure: Yes Nausea / Vomiting: adequately controlled Pain: adequately controlled Airway Patency, RR, SpO2: stable & adequate BP & HR: stable & adequate Hydration State: stable & adequate Anesthetic Complications: no major complications apparent Notes: Awake, doing well, no complaints. Will keep patient on supplemental oxygen to maintain O2 sat.
--- NOTE | 2018-10-16 15:33 | Hospitalist Progress Note ---
Date of Service October 16, 2018 Assessment & Plan (1) Pneumonia: - Had multiple admissions with length of stay for the majority of August into September - treated for pneumonia and neutropenic sepsis at that time. - CXR showed progressive changes to the RUL with noted nodule in this region. - S/p bronch on 10/13/18; culture showed moderate normal resp antoinette. - Continue Cefepime 2 gm IV BID for empiric coverage (End date: 10/17/18) - Duonebs q4hr scheduled; Mucinex 1,200 mg BID. - CT surgery consulted, RUL stenting was completed today. (2) Hypoxia: - Likely related to pneumonia vs. underlying COPD vs. lung cancer vs. collapsed RUL. - Now weaned to room air. - Continue Prednisone taper -- 50 mg daily on 10/17/18. (3) Anemia: - Anemia likely related to anemia of chronic disease vs. previous chemotherapy. - Monitor H/H. (4) COPD (chronic obstructive pulmonary disease): - Oxygen requirements improved; no evidence of severe acute exacerbation. - Continue steroids and IV abx as noted above. - Continue home Symbicort as prescribed; Duonebs q4hr ATC. (5) Dysphagia: - Chronic issue, diet ordered appropriately. 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 Pulido. - Last chemotherapy in July; has f/u appt scheduled 10/25/18. (7) Hypertension: - Continue Losartan 50 mg daily, Diltiazem 180 mg daily, Lasix 40 mg daily. (8) Depression: - Continue Paxil as prescribed. (9) Anxiety: - Continue Paxil as prescribed. (10) Hyperlipidemia: - Continue statin as prescribed. (11) Electrolyte abnormality: - No replacement required. (12) DVT prophylaxis: - Holding Lovenox for procedure, will resume on 10/17/18. Dispo: Discharge likely on 10/17/18 if pt. is stable post operatively. Supervising Physician Co-Signing Physician Notes PA Supervision Note: I did not personally see or examine the patient today, but I verified all phillip points of SURESH Oropeza's assessment and plan with the following exceptions/additions: None Subjective S/p RUL stent placement today. On 6L post op, now weaning down oxygen. Denies SOB, chest pain, N/V, constipation. Review of Systems Review of Systems: All systems reviewed & are unremarkable except as noted in HPI & below Constitutional: no fever, no chills, no fatigue and no weakness Respiratory: no cough, no dyspnea, no dyspnea on exertion and no wheezing Cardiovascular: no chest pain, no palpitations, no lightheadedness, no syncope and no edema Gastrointestinal: no abdominal pain, no nausea, no vomiting and no constipation Genitourinary: no difficulty urinating Musculoskeletal: no back pain and no joint pain Integumentary: no non-healing lesions Allergy / Immunological: no rash Physical Exam Physical Exam: General: Resting comfortably HEENT: NC/AT; PERRLA with EOMI; [place] conjunctiva, MMM. Neck: Supple and nontender Cardiac: RRR Lungs: on 6L via NC; clear throughout. Abdomen: Bowel normoactive X 4; Nontender to palpation Extremities: Warm. No edema present Neuro: No focal weakness Skin: No rash Results & Data Vital Signs (Past 12 Hours) Vital Signs Temp Pulse Pulse Resp BP BP Pulse Ox 10/16/18 15:07 36.5 C 89 16 116/57 L 95 10/16/18 14:40 36.6 C 90 22 122/59 L 95 10/16/18 14:30 86 24 128/56 L 93 10/16/18 14:20 92 H 26 H 117/80 97 10/16/18 14:10 92 H 29 H 136/69 97 10/16/18 14:02 37.7 C H 94 H 27 H 149/69 H 95 10/16/18 11:44 37.3 C 91 H 20 129/75 93 10/16/18 11:32 36.9 C 86 20 146/76 H 91 10/16/18 11:26 94 H 16 90 10/16/18 07:38 36.7 C 88 20 164/83 H 92 10/16/18 07:15 86 91 H 16 91 10/16/18 03:46 36.7 C 95 H 18 125/73 90 10/16/18 03:38 89 16 91 Laboratory Results 10/16/18 10/16/18 Range/Units 05:41 05:41 WBC 6.17 (4.8-10.8) K/uL RBC 2.78 L (4.2-5.4) M/uL Hgb 9.0 L (12.0-16.0) g/dL Hct 26.5 L (37-47) % MCV 95.3 (80-100) fL MCH 32.4 (25-34) pg MCHC 34.0 (32-36) g/dL RDW Std Deviation 54.8 H (36.4-46.3) fL RDW Coeff of Filemon 16.0 H (11.5-14.5) % Plt Count 341 (130-400) K/uL MPV 8.8 (7.4-10.4) fL Sodium 137 (136-145) mmol/L Potassium 3.5 (3.5-5.1) mmol/L Chloride 96 L (98-107) mmol/L Carbon Dioxide 36 H (21-32) mmol/L Anion Gap 5.0 (3-11) BUN 20 H (7-18) mg/dl Creatinine 0.88 (0.6-1.2) mg/dl Est Cr Clr Drug Dosing 51.0 ml/min Est GFR ( Amer) 75.5 Est GFR (Non-Af Amer) 65.2 BUN/Creatinine Ratio 22.6 H (10-20) Glucose 132 H (70-99) mg/dl Calcium 9.2 (8.5-10.1) mg/dl Magnesium 1.8 (1.8-2.4) mg/dl (1) Anemia Anemia type: unspecified type Qualified Code(s): D64.9 - Anemia, unspecified (2) Pneumonia Laterality: right Lung location: unspecified part of lung Pneumonia type: due to unspecified organism Qualified Code(s): J18.9 - Pneumonia, unspecified organism
[2018-10-16] MEDS: ATORVASTATIN 20 MG TAB PO SCH (21:06)
--- NOTE | 2018-10-16 21:10 | Operative Report ---
DATE OF OPERATION: 10/16/2018 PREOPERATIVE DIAGNOSIS: Stenosis, right upper lobe bronchus in a patient with lung cancer and subsequent therapy. POSTOPERATIVE DIAGNOSIS: Stenosis, right upper lobe bronchus in a patient with lung cancer and subsequent therapy. PROCEDURE: 1. Fiberoptic bronchoscopy. 2. Insertion and deployment of an 8 x 15 mm covered stent into stenotic right upper lobe bronchus. SURGEON: Elfego Torres MD NATURAL REMEDY CONSULTANT: Negro Mota, respiratory therapy. ANESTHESIA: General anesthesia endotracheal intubation. 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 She became short of breath and was found to have stenosis of her right upper lobe bronchus on bronchoscopy. She also has collapse of her right upper lobe. After much discussion, I felt that a stent would be helpful in the short term. After a long discussion with the patient and her family, we elected to proceed. On 10/16/2018, patient underwent a fiberoptic bronchoscopy. There was very little in the way of sputum; however, the right upper lobe bronchus had essentially a pinpoint opening. I was able to get a wire through this. Placing this 6-mm stent was difficult. I was actually able to place the stent through the working channel of the fiberoptic bronchoscope so that we did this without fluoroscopy. This went down and we were able to deploy the stent without difficulty. She tolerated it well with no blood loss. DESCRIPTION OF PROCEDURE: The patient was brought to the operating room and laid in supine position. General anesthesia induced, endotracheal intubation was performed. The patient was given prophylactic antibiotics and appropriate timeout called. A fiberoptic bronchoscope was then placed and inspecting each of the airways, they all looked good except the right upper lobe bronchus which had a smooth tapered narrowing. It did open up distal to this on the CT scan. The left upper and lower lobe bronchi looked fine as well as the bronchus intermedius, basilar segments, and middle lobe bronchus. I did place a wire and it did go into 2 of the 3 subsegmental bronchi. After much discussion, we elected to proceed with the insertion of the stent. We did not need a wire. I placed a stent directly into this. It was so tight it was difficult to get it through, so I used a balloon to inflate and open this up and then I was able to get the stent across. This deployed nicely and while it was still tight, we were able to see through to the other side. I did not of course put the scope through this small stent. The patient had no bleeding and tolerated it quite well. I removed the bronchoscope and she was awakened and transported back to the postanesthesia care unit in stable condition. I attest to the content of the Intraoperative Record and any orders documented therein. Any exception s are noted below.
[2018-10-17] MEDS: ALBUT/IPRATROP 3MG/0.5MG NEB 3 ML VIAL NEB SCH ×4 (03:24→14:25)
[2018-10-17 06:19] LABS: Hematocrit (blood only) 26.1 % (37-47); Hemoglobin 9.1 g/dL (12.0-16.0); Mean Corpuscular Hgb Conc 34.9 g/dL (32-36); Mean Corpuscular Volume 94.6 fL (80-100); Mean Platelet Volume 8.5 fL (7.4-10.4); Platelet Count 300 K/uL (130-400); RDW Coefficient of Variation 16.1 % (11.5-14.5); RDW Standard Deviation 55.2 fL (36.4-46.3); Red Blood Count 2.76 M/uL (4.2-5.4); White Blood Count 7.93 K/uL (4.8-10.8)
[2018-10-17 06:53] LABS: BUN Creatinine Ratio 19.7 (10-20); Calcium 8.4 mg/dl (8.5-10.1); Creatinine Clr Calc Pharmacy 47.6 ml/min; Est GFR (African American) 70.7; Potassium 3.5 mmol/L (3.5-5.1)
--- NOTE | 2018-10-17 08:40 | Surgery Progress Note ---
Date of Service October 17, 2018 Assessment & Plan (1) Lung cancer: -FOB performed earlier this admission and narrowing of portion of bronchial tree noted: -due to findings at time of FOB, Dr. Torres placed a right bronchial stent on 10/16/18 -CXR does not show much radiographic improvement, but pt. reports subjective improvement -will continue to follow Subjective Pt. notes her breathing is better since yesterday's procedure. Physical Exam Respiratory: normal respiratory effort; no labored breathing bilateral wheezing noted Results & Data Vital Signs (Past 12 Hours) Vital Signs Temp Pulse Pulse Pulse Pulse Resp BP 10/17/18 07:43 36.7 C 97 H 16 10/17/18 07:10 91 H 16 L 10/17/18 03:59 36.9 C 77 16 133/86 10/17/18 03:24 90 18 10/17/18 00:45 91 H 10/16/18 23:42 36.7 C 91 H 16 111/65 10/16/18 23:29 97 H 18 BP Pulse Ox 10/17/18 07:43 129/66 90 10/17/18 07:10 91 10/17/18 03:59 91 10/17/18 03:24 89 L 10/17/18 00:45 10/16/18 23:42 92 10/16/18 23:29 91
--- NOTE | 2018-10-17 08:46 | XRay Report ---
XR chest 1V portable HISTORY: 73 years-old Female bronchial stent follow-up study in a patient with bronchial stent COMPARISON: Chest radiograph 10/16/2018 TECHNIQUE: Portable AP view of the chest FINDINGS: Cardiomediastinal and hilar silhouettes are unchanged. Stent of the right mainstem bronchus is noted with chronic appearing changes of the right mid and right upper lung with chronic volume loss. Mild c ompensatory hyperinflation of the left lung which appears clear. There is no pneumothorax or large pl eural effusion. Multiple right-sided rib deformities redemonstrated. Left shoulder arthroplasty. Adva nced degenerative changes about the right shoulder. IMPRESSION: 1. Right-sided bronchial stent redemonstrated. Chronic findings of the right lung are again noted. 2. No pneumothorax. 3. The left lung appears clear. The above report was generated using voice recognition software. It may contain grammatical, syntax o r spelling errors. Electronically signed by: Puneet Murguia M.D. 10/17/2018 8:44 AM
[2018-10-17] MEDS ORDERED: predniSONE 50 MG TAB PO SCH (09:00)
[2018-10-17] MEDS ORDERED: ENOXAPARIN INJ 40 MG/0.4 ML SYR SQ SCH (09:00)
[2018-10-17] MEDS: guaiFENesin 600 MG TABCR PO SCH (09:26)
[2018-10-17] MEDS: PANTOprazole 40 MG TAB PO SCH (09:27)
[2018-10-17] MEDS: FUROSEMIDE 40 MG TAB PO SCH (09:27)
[2018-10-17] MEDS: dilTIAZem HCL 180 MG CAPCR PO SCH (09:27)
[2018-10-17] MEDS: LOSARTAN POTASSIUM 50 MG TAB PO SCH (09:27)
[2018-10-17] MEDS: BUDESONIDE/FORMOTEROL FUMARATE 160/4.5 60 PUFFS/INHALER INH SCH (09:28)
[2018-10-17] MEDS: CEFEPIME 2,000 MG in SYRINGE 7.5 ML IV SCH (09:28)
[2018-10-17] MEDS: PARoxetine HCl 20 MG TAB PO SCH (09:28)
[2018-10-17 11:30] VITALS: TEMP 98.2
[2018-10-17] MEDS: ASPIRIN 81 MG ECTAB PO SCH (11:57)
--- NOTE | 2018-10-17 12:53 | Discharge Summary ---
Date of Service October 17, 2018 Admission HPI Per Admitting Provider This is a 73 yo F with PMHx of right lung cancer originally diagnosed in 2012, s/p chemotherapy and radiation therapy. Most recent chemotherapy was Aug 05 where she completed the second round of paclitaxel, this most recent chemo was a reduced dose. Other PMHx includes COPD, remote smoking hx 40 yrs ago with 1 ppd x 15 yrs, HTN, HLD< anxiety, depression. Pt was recently admitted from 08/13-08/22 at our facility due to neutropenic sepsis secondary to cellulitis and radiation patient is on a facility discharged September 11 at which time she was felt to have pneumonia with CT changes in the right upper lobe was discharged on 4 additional days of Augmentin therapy. Reportedly CT of the right upper lobe showed fluid in the fissure and a pulmonary nodule located. Patient has had slight improvement but now declined with the increase respiratory work and profoundly hypoxic with confusion associated with it. She has progressive change on chest x-ray in the right upper lobe area which is described as above. This looks worsened from previous. Her white count is elevated the patient has had a nonproductive cough there is concern for healthcare associate pneumonia gram-negative's MRSA and possibly postobstructive pneumonia Admission Exam Per Admitting Provider The patient appeared clearly in moderate distress Vital signs as documented. Head exam is unremarkable. normocephalic, atraumatic Neck is without jugular venous distension, thyromegaly, or lymphademopathy Lungs are diminished bilaterally with some rhonchi in the right mid upper lobe no wheezes Cardiac exam reveals Rhythm is regular. First and second heart sounds normal. Abdominal exam reveals normal bowel sounds, no masses, no organomegaly Extremities are nonedematous and both pedal pulses are present Neurologic exam is A&Ox3, no focal deficits, strength is equal bilateral Psychologically seems neither anxious or depressed Skin is warm Dry without bruises or lesions Principal Diagnosis postobstructive RUL pneumonia Discharge Exam General: Resting comfortably HEENT: NC/AT; PERRLA with EOMI; [place] conjunctiva, MMM. Neck: Supple and nontender Cardiac: RRR Lungs: on room air; mild scattered wheezing noted throughout all lung [place]. Abdomen: Bowel normoactive X 4; Nontender to palpation Extremities: Warm. No edema present Neuro: No focal weakness Skin: No rash Discharge Data Allergies Allergy/AdvReac Type Severity Reaction Status Date / Time hydrochlorothiazide AdvReac Intermediate DIZZY, Verified 10/10/18 18:17 "LOOPY" FEELING Consultations 10/10/18 18:36 ED Decision to Admit Stat 10/10/18 20:14 Consult Case Management - Discharge Planning Routine Consult Thoracic Surgery Routine Procedures Performed Operation Date: 10/13/18 13:00 Actual Procedures p Bronchoscopy Radiology(Bilateral) - Elfego Torres MD, FACS Operation Date: 10/16/18 12:30 Actual Procedures p Right Upper Lobe Stent Insertion, Fiberoptic Bronchoscopy(Not Applicable) - Elfego Torres MD, FACS Ordered Studies 10/16/18 12:30 FL bronchoscopy request Routine FL chest 1V frontal Routine CXR 10/10, 10/16 and 10/17 Hospital Course (1) Pneumonia: Had multiple admissions with length of stay for the majority of August into September - treated for pneumonia and neutropenic sepsis at that time. CXR showed progressive changes to the RUL with noted nodule in this region. S/p bronch on 10/13/18; culture showed normal resp antoinette growth. Completed Cefepime IV course; also received Vanco IV at admission. Duonebs q4hr scheduled - continue at home; Mucinex 1,[address] surgery following -- also had RUL stent placement on 10/16/18. Stable for discharge to home on 10/17/18. Was on room air, denied SOB. (2) Hypoxia: Likely related to pneumonia vs. underlying COPD vs. lung cancer vs. collapsed RUL. Weaned to room air prior to discharge. Will complete Prednisone taper - 40 mg x 1, 30 mg x 1, 20 mg x 1, 10 mg x 1. (3) Anemia: Anemia likely related to anemia of chronic disease vs. previous chemotherapy. H/H remained stable. (4) COPD (chronic obstructive pulmonary disease): Oxygen requirements improved; no evidence of severe acute exacerbation. Completed IV abx and will complete steroid taper as noted above. Continued home Symbicot. Duonebs QID scheduled -- also uses at home. (5) Dysphagia: Chronic issue, diet ordered appropriately. 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 Pulido. Last chemotherapy in July; has f/u appt scheduled 10/25/18. (7) Hypertension: Continued Losartan 50 mg daily, Diltiazem 180 mg daily, Lasix 40 mg daily. (8) Depression: Continued Paxil as prescribed. (9) Anxiety: Continued Paxil as prescribed. (10) Hyperlipidemia: Continued statin as prescribed. (11) Electrolyte abnormality: Replaced as needed. (12) DVT prophylaxis: Held for procedures. Stable for discharge to home on 10/17/18. Will f/u with pulm (Delmer Seymour PA-C), Dr. Torres from CT surgery and PCP. Total Time Total Time Spent Total Time Spent (In Minutes): >30 minutes Total Time Includes: Examination of the Patient, Discharge Planning, Medication Reconciliation, Communication With Other Providers and Other Discharge Plan Discharge Items Patient Disposition: Home - Home Health Services Reason For Visit: COMPLEX PNEUMONIA Discharge Diagnosis: Complex Pneumonia Condition: Good Discharge Goals: Decrease discomfort, Diagnostic testing, Improve disease control, Improve function, Increase independence and Prevent disease Activity: As commented below Exercise/Sports: Wait until after follow-up appointment Non-emergency contact: Primary Care Provider and Brush Washer Call non-emergency contact if: you have any medication questions, your symptoms worsen, your pain is not controlled, your pain is worsening, your pain is unusual for you, your pain is concerning for you and you have a fever Follow-up/Referrals: Vimal Seymour PA-C [Physician Fast Food Fry Cook] - 10/23/18 1:15 pm (Please, follow up with Delmer Seymour PA-C on October 23 at 1:15 pm. *The office is located in [address] of [facility]. This is the big building located next to this hospital. If you need to change this appointment, call the office at [phone].) Elfego Torres MD, FACS [Surgeon] - (Please, follow up with Dr. Torres (cardiothoracic surgeon). *A nurse from this office will call you with the appointment information. The office is located at [address] [facility] in [place]. If you have any questions, call the office at [phone].) Ari Renee DO [Primary Care Provider] - 10/28/18 10:00 am (Please, follow up with Dr. Renee on SaturdayOctober 28 at 10:00 am. *If you need to change this appointment, call the office at [phone].) Diet: Regular Diet Texture: Dental soft (bite-sized) Addtl Provider Instructions: 1. Pneumonia/Hypoxia * You received a course of IV antibiotics during this admission for treatment of pneumonia. * Please continue nebulizers four times daily at home. * Please follow up with Delmer Seymour PA-C from pulmonology as scheduled in the outpatient clinic. * An appointment will be scheduled with Dr. Torres from CT surgery in 1-2 weeks to evaluation status post right upper lobe stent placement. * Please follow up with your primary care provider as scheduled on 10/28/18. * Please take Prednisone taper as follows: - Prednisone 40 mg daily on Saturday10/18/18. - Prednisone 30 mg daily on Saturday10/19/18. - Prednisone 20 mg daily on Saturday10/20/18. - Prednisone 10 mg daily on Saturday10/21/18. 2. Prescription for Prednisone taper was sent to your pharmacy ([facility] in [place], [place]). Prescriptions: New prednisone 10 mg tablet 50 mg PO DAILY Qty: 10 RF: 0 Continued tramadol 50 mg tablet 50 mg PO Q8H PRN (Reason: pain) Qty: 30 RF: 0 losartan 50 mg tablet 50 mg PO DAILY RF: 0 furosemide 40 mg tablet 40 mg PO DAILY RF: 0 diltiazem HCl [Cardizem CD] 180 mg capsule,extended release 24hr 180 mg PO DAILY RF: 0 multivitamin Tablet 1 tab PO QAM RF: 0 atorvastatin 20 mg Tablet 20 mg PO QPM RF: 0 ipratropium-albuterol 0.5 mg-3 mg(2.5 mg base)/3 mL Solution For Nebulization 3 ml INHALATION QID RF: 0 aspirin 81 mg Tablet,Delayed Release (Dr/Ec) 81 mg PO QAM RF: 0 alprazolam 0.25 mg Tablet 0.25 mg PO BID PRN (Reason: Anxiety) RF: 0 paroxetine HCl 20 mg Tablet 20 mg PO QAM RF: 0 lansoprazole [Prevacid] 15 mg Capsule,Delayed Release(Dr/Ec) 15 mg PO BID RF: 0 albuterol sulfate [Proventil HFA] 90 mcg/actuation Hfa Aerosol Inhaler 2 puff INHALATION Q6H PRN (Reason: Shortness Of Breath) RF: 0 Symbicort 160-4.5 mcg/actuation Hfa Aerosol Inhaler 1 puff INHALATION BID RF: 0 Stand-Alone [facility]: [facility] Orders: Discharge Order (Routine); Ordered 10/17/18 Ordered By: Cristina Oropeza Admission Data Admit Date/Time: 10/10/18 19:47 Attending Provider: Serge De La Vega Admit Provider: Storm Eng Primary Care Provider: Ari Renee Other Providers: Storm Eng ; Elfego Torres Service: Telemetry Medical Other Interventions: Discharge Summary Assessment (RN) Last Done: 10/17/18 14:34 Pending Studies at Discharge: Yes Studies:: BAL cultures. DC Date/Time DO NOT enter until pt leaves facility: 10/17/18 16:06 Supervising Physician Co-Signing Physician Notes Attending Attestation & Discharge Note: Pt seen/examined, chart reviewed, discharge care plan d/w PA Cristina Oorpeza. I agree w/ the phillip components of her discharge summary. 73yo female with known right-sided lung cancer who presented with confusion, cough, and progressive dyspnea. Found to have RUL pneumonia. Treated with broad-spectrum antibiotics. Thoracic surgery consulted while here; bronchoscopy was performed, and a RUL bronchial stenosis was found. Later in her stay she underwent repeat bronchoscopy and a stent was placed in the RUL bronchus. At discharge the patient's pulmonary symptoms were improved and she was stable in room air. She completed her entire antibiotic course while here. A short prednisone course was advised for post-discharge. Discharge exam- gen- NAD mouth- MMM heart- RRR, s1, s2 lungs- minimal wheeze b/l, good airation abd- soft, NT ext- no edema Serge De La Vega MD
[2018-10-17 14:26] VITALS: O2SAT 91
[2018-10-17 14:35] VITALS: BP 129/66; PULSE 97
--- NOTE | 2018-10-21 13:19 | Coding Query ---
CODING QUERY To promote full compliance with coding requirements relating to patient care, provider participation is requested in all cases of book agent uncertainty. Please assist us with the question(s) below: Patient admitted with pneumonia. Pre-existing lung cancer and multiple prior episodes of pneumonia. Bronchoscopy during this IP stay found stenotic bronchus. Progress notes document pneumonia. Please check below the etiology/type pneumonia if known or suspected. Thanks for your help! Juanjose Posey, TIFFANY CCS ____xx___ Lung Cancer/ Postobstructive MRSA Pneumonia Gram negative Pneumonia Cannot Clinically Correlate Other/ Please document: Principal Diagnosis: "that condition established after study, to be chiefly responsible for occasioning the admission of the patient to the hospital for care." Co-Existing Principal Diagnosis: "when two or more diagnoses equally meet the criteria for principal diagnosis as determined by the circumstances of admission, diagnostic work up, and/or therapy provided, and the Alphabetic Index, Tabular List, or another coding guideline does not provide sequencing direction, any one of the diagnoses may be sequenced first." "When the physician has documented what appears to be a current diagnosis in the body of the record, but has not included the diagnosis in the final diagnostic statement, the physician should be asked whether the diagnosis should be added." (Source [facility]oding [facility] 2 QTR90. p3-4) MARISSAD
== END 2018-10-17 16:06 | disposition home health service (06) | DRG 180 ==
LOC: ED 17:08 → SUATTDRO 19:47 → 2N 19:47

== ENCOUNTER 2019-04-02 15:15 | Inpatient (IN) ==
[2019-04-02] MEDS ORDERED: ONDANSETRON INJ 2 MG/ML 2 ML VIAL IV PRN (17:08)
[2019-04-02] MEDS ORDERED: ACETAMINOPHEN 325 MG TAB PO PRN (17:08)
[2019-04-02] MEDS ORDERED: LEVALBUTEROL HCL 1.25 MG/3 ML NEB NEB PRN (18:07)
[2019-04-02] MEDS: LEVALBUTEROL HCL 1.25 MG/3 ML NEB NEB SCH (19:12)
[2019-04-02] MEDS ORDERED: ALPRAZolam 0.25 MG TABLET PO PRN (20:21)
[2019-04-02] MEDS ORDERED: ALBUTEROL HFA 8 GM INHALER INH PRN (20:21)
[2019-04-02 20:24] LABS: Hematocrit (blood only) 33.8 % (37-47); Hemoglobin 11.7 g/dL (12.0-16.0); Immature Granulocytes # (auto) 0.04 K/uL (0.00-0.02); Immature Granulocytes % (auto) 0.3 %; Lymphocytes # (auto) 0.24 K/uL (1.2-3.4); Lymphocytes % (auto) 1.6 %; Mean Corpuscular Hemoglobin 30.8 pg (25-34); Mean Corpuscular Volume 88.9 fL (80-100); Mean Platelet Volume 8.7 fL (7.4-10.4); Monocytes # (auto) 0.28 K/uL (0.11-0.59); Monocytes % (auto) 1.9 %; Neutrophils # (auto) 14.17 K/uL (1.4-6.5); Neutrophils % (auto) 96.2 %; Platelet Count 224 K/uL (130-400); RDW Coefficient of Variation 13.9 % (11.5-14.5); RDW Standard Deviation 45.5 fL (36.4-46.3); White Blood Count 14.73 K/uL (4.8-10.8)
[2019-04-02 20:40] LABS: BUN Creatinine Ratio 12.1 (10-20); Calcium 8.7 mg/dl (8.5-10.1); Creatinine Clr Calc Pharmacy 39.7 ml/min; Est GFR (African American) 56.4; Est GFR (Non-African American) 48.7; Potassium 3.4 mmol/L (3.5-5.1)
[2019-04-02 20:48] LABS: Mean Corpuscular Hgb Conc 34.6 g/dL (32-36)
[2019-04-02] MEDS ORDERED: ALBUT/IPRATROP 3MG/0.5MG NEB 3 ML VIAL INH SCH (21:00)
--- NOTE | 2019-04-02 21:16 | History & Physical Report ---
Date of Service April 02, 2019 Assessment & Plan (1) Shortness of breath: Admit to [facility] on telemetry for fever and shortness of breath. Consult Dr. Pulido, will try to obtain medical records from the cancer center and see what medication was given to patient last . Patient already received antibiotics in the [facility] emergency seekonk. Started empirically Cefepime 2 g IV Q12 hr for possible pulmonary infection. The SOB could be related to interstitial lung disease due to chemotherapy with cisplatin and Precedex cell which patient received in August 2018 and possibly latest chemotherapy. Will discuss with hematology oncology. Continue breathing treatments with budesonide/formoterol 1.5 twice daily, continue Mucinex 1200 p.o. every 12, continue level albuterol 1.25 nebs every 2 hours as needed and every 6 hours scheduled, continue albuterol inhaler every 6 hours 2 puffs as needed, continue prednisone 40 mg p.o. daily. Started empirically cefepime 2 g IV every 12 hours for possible pulmonary infection, leukocytosis and fevers, and to cover for Pseudomonas. DVT prophylaxis SCDs and teds Patient is full code Present on Admission?: Yes (2) Carcinoma in situ of lung: As above Present on Admission?: Yes (3) COPD (chronic obstructive pulmonary disease): As above (4) HLD (hyperlipidemia): Lipid panel pending, continue home dose of atorvastatin 20 mg p.o. daily Present on Admission?: Yes (5) Depression: Depression and anxiety stable now. Continue alprazolam 0.25 mg p.o. twice daily Present on Admission?: Yes (6) Hypertension: Stable, continue home dose aspirin 81 mg p.o. every morning, diltiazem 180 mg p.o. every morning, losartan 50 mg p.o. every morning. Monitor blood p ressure every 4 hours. Present on Admission?: Yes History of Present Illness Chief Complaint: Shortness of breath and fever Primary Care Provider: Ari Renee DO Patient is a 73 years old female with past medical history of lung cancer, obstructive lung disease, esophageal reflux disease, status post cryotherapy in November 2014 at [facility] of carcinoma in situ right main stain and intermedius bronchus of the lung, and SC LCA/squamous cell carcinoma BX by EBUS with biopsy 4R, 7, 10R 03/2018-IIIA s/p 6000cGy (complete 06/2018), weekly Paclitaxel+ Carboplatin is direct admit from [facility] on ER for symptoms of shortness of breath and and fever that started this morning. On the follow-up patient had recurrent RUL collapse and stent was removed in November 2018. Patient uses 2 L of oxygen only at night. Patient just completed her chemotherapy last and she was recommended to continue with Symbicort 160/4.5 twice daily, 4 times daily duo nebs, nocturnal supplemental oxygen via nasal cannula. At that point patient was given influenza vaccination by oncology. Today labs are reviewed which shows a viable cell count of 14.73, without left shift, which could be reactive status post recent chemotherapy. Hemoglobin is 11.7, hematocrit 33.8, platelets 224, PT 12.2, INR 1.2, APTT 29.5. Sodium 130, potassium 3.4, chloride 96, BUN 14, creatinine 1.12, GFR 48.7, lactate pending. TSH pending, liver enzymes pending. Chest x-rays from [facility] shows a new large spiculated mass in the right hilar/suprahilar region. On the prior CT scan there were some lymph nodes in the right hilar and suprahilar region which were borderline significance by size criteria. Decision was made to admit patient to [facility] on telemetry for further evaluation of fever with shortness of breath. Allergies Allergy/AdvReac Type Severity Reaction Status Date / Time hydrochlorothiazide Allergy Intermediate DIZZY, Verified 03/30/19 09:38 "LOOPY" FEELING Home Medications Home Medications Medication Instructions Recorded Confirmed Type Symbicort 1 puff INHALATION BID 03/27/18 04/02/19 History alprazolam 0.25 mg PO BID PRN 03/27/18 04/02/19 History aspirin 81 mg PO QAM 03/27/18 04/02/19 History atorvastatin 20 mg PO QPM 03/27/18 04/02/19 History ipratropium-albuterol 3 ml INHALATION QID 03/27/18 04/02/19 History lansoprazole [Prevacid] 15 mg PO BID 03/27/18 04/02/19 History multivitamin 1 tab PO QAM 03/27/18 04/02/19 History paroxetine HCl 20 mg PO QAM 03/27/18 04/02/19 History diltiazem HCl [Cardizem CD] 180 mg PO QAM 10/10/18 04/02/19 History furosemide 40 mg PO QAM 10/10/18 04/02/19 History losartan 50 mg PO QAM 10/10/18 04/02/19 History albuterol sulfate HFA 90 2 puffs INH Q6H PRN #18 gm 02/03/19 04/02/19 Rx mcg/actuation aerosol inhaler albuterol sulfate 2.5 mg INHALATION QID 04/02/19 04/02/19 History albuterol sulfate [Proventil HFA] 2 puff INHALATION Q4 PRN 04/02/19 04/02/19 History alprazolam 0.25 mg PO BID PRN 04/02/19 04/02/19 History aspirin [Aspir-81] 81 mg PO DAILY 04/02/19 04/02/19 History atorvastatin [Lipitor] 20 mg PO DAILY 04/02/19 04/02/19 History budesonide-formoterol [Symbicort] 2 puff INHALATION BID 04/02/19 04/02/19 History diltiazem HCl 120 mg PO DAILY 04/02/19 04/02/19 History furosemide [Lasix] 40 mg PO DAILY 04/02/19 04/02/19 History lansoprazole [Prevacid] 15 mg PO BID 04/02/19 04/02/19 History losartan [Cozaar] 50 mg PO DAILY 04/02/19 04/02/19 History multivitamin 1 tab PO DAILY 04/02/19 04/02/19 History paroxetine HCl 20 mg PO DAILY 04/02/19 04/02/19 History Past Med/Surg History Medical History Acute respiratory failure with hypoxia ?08/2018 Encephalopathy Pneumonia ?09/2018 S/P ABX Neutropenic sepsis ? 08/2018 Cellulitis of left lower extremity Cancer of right lung S/P CRYOTHERAPY (2014), S/P CHEMO/RADIATION (COMPLETION ?07/2018) Hypertension Asthma COPD (chronic obstructive pulmonary disease) Hyperlipidemia Anxiety Depression Anemia Dysphagia Irritable bowel disease Lung nodules Mediastinal lymphadenopathy Obesity Surgical History Difficult intubation LEFT FOOT RECONSTRUCTION: 12/28/16: GLIDESCOPE# 3 ETT 7.0 AT [facility] BRONCHOSCOPY; RUL STENT INSERTION: 10/16/18: "ELECTIVE" GLIDESCOPE #3, ETT 8.0 AT [facility] History of appendectomy History of bronchoscopy MULTIPLE 12/07/13 - MAC #2, Glidescope #3, ETT #8.0, HiLo Oral History of cataract surgery B/L History of colonoscopy 2016 History of difficult intubation 12/28/16 - Glidescope #3, ETT #7, Oral HiLo, Good View with Glidescope 12/07/13 - MAC #2, Glidescope #3, ETT #8.0, HiLo Oral Hx of abdominal hysterectomy 1972 Hx of foot surgery 2014 & 2017 - LEFT X2 12/28/16 - Glidescope #3, ETT #7, Oral HiLo, Good View with Glidescope Hx of repair of rotator cuff 2008 - RIGHT Hx of total shoulder replacement 2014 - LEFT 11/14/15 - MAC #3, ETT #7, Oral HiLo, Grade 1 View S/P pulmonary artery branches stent placement STENT PLACED VIA BRONCHOSCOPY D/T PNEUMONIA OCTOBER 16, 2018 Social History Preferred Language: Belarusian Communication Ability: Effective Visual Impairment: Limited Hearing Ability: Normal Dragline Oiler Required: No Beliefs That Will Affect Care: None marital status: / Current Living Situation: Family Current Living Situation Comment: lives with mother and sister current occupational status: retired current occupation: Retired from [employer] Other Information That Helps Us Care for You: No Feels Safe at Home: Yes Safety Concerns: Feels Safe At This Time Smoking Status: Former smoker Tobacco Type: cigarettes ; Cigarettes Per Day: 1 pack/week ; Second Hand Exposure: Yes (Not recent ) ; Hx Alcohol Use: No Hx Substance Use: No caffeine: Yes (1 pot of coffee/day ) Review of Systems Review of Systems: All systems reviewed & are unremarkable except as noted in HPI & below Physical Exam Constitutional: WD/WN, vitals as above well developed and + frail appearing Eyes: PERRL, conjunctivae normal, anicteric sclerae ENMT: external ear and nose normal, oropharynx normal Neck: trachea midline, no thyromegaly Respiratory: Auscultation: + crackles, + wheezes and + bronchovesicular breath sounds Cardiovascular: Heart Sounds: normal S1 and normal S2 Palpation: + palpable S3 Vessels: dorsalis pedis pulses present Gastrointestinal (Abdomen): normal bowel sounds, soft, nontender, no hepatosplenomegaly Musculoskeletal: no cyanosis or clubbing, extremities motor strength 5/5 Skin: no rashes, warm and dry Neurologic: patellar DTR's 2+ bilat, sensation intact Psychiatric: A+Ox3, euthymic affect Lymphatic: no cervical or axillary lymphadenopathy Results & Data Vital Signs (Past 12 Hours) Vital Signs Temp Pulse Pulse Resp BP Pulse Ox 04/02/19 19:14 89 18 97 04/02/19 18:55 36.6 C 91 H 26 H 123/70 96 Code Status & VTE Plan Code Status Full code VTE Prophylaxis Plan VTE Prophylaxis will be ordered: Yes PG Care Time/CCT Total # of Minutes Spent Total Time Spent with Patient: Total time spent is greater than 50% in coordination of care (as documented) at patient's floor/unit and/or counseling patient:
[2019-04-02 21:46] LABS: Thyroid Stimulating Hormone 0.237 uIu/ml (0.300-4.500)
[2019-04-02] MEDS: CEFEPIME 2,000 MG in SYRINGE 7.5 ML IV SCH (21:54)
[2019-04-02] MEDS: guaiFENesin 600 MG TABCR PO SCH (21:54)
[2019-04-02] MEDS: ATORVASTATIN 20 MG TAB PO SCH (21:55)
[2019-04-02] MEDS: BUDESONIDE/FORMOTEROL FUMARATE 160/4.5 60 PUFFS/INHALER INH SCH (21:55)
[2019-04-02] MEDS: PANTOprazole 40 MG TAB PO SCH (21:56)
[2019-04-02] MEDS ORDERED: POTASSIUM CHLORIDE 20 MEQ TABCR PO ONE (22:00)
--- NOTE | 2019-04-02 22:05 | CT Scan Report ---
CT OF THE CHEST WITHOUT IV CONTRAST CLINICAL HISTORY: Cough. Airspace opacities. Lung cancer. COMPARISON STUDY: Chest radiograph March 30, 2019. Chest CT September 05, 2018. PET/CT December 22, 2018. CT DOSE: 297.69 mGy.cm TECHNIQUE: Axial images of the chest were obtained without IV contrast. Images were reviewed in the axial, sagittal, and coronal planes. IV contrast was not administered for this examination. Automat ed exposure control was utilized for the study. A dose lowering technique was utilized adhering to t he principles of ALARA. FINDINGS: No enlarged axillary, mediastinal or hilar lymph nodes are present. Mediastinal infiltrati on is noted. This was shown on CT of December 22, 2018. Extensive right perihilar opacity is similar to p rior PET/CT of December 22, 2018. There is no pneumothorax or pleural effusion. There are several indeter minate pulmonary nodules including a 5 mm left lower lobe nodule on image 174, a 5 mm left lower lobe nodule on image 85 and a 4 mm left upper lobe nodule on image 37. These were not shown on a chest CT of August 15, 2018. No suspicious osseous lesions are noted. There are multiple right-sided rib deform ities. Upper abdomen is unremarkable this unenhanced examination. IMPRESSION: 1. Extensive right perihilar opacity similar to PET/CT of December 22, 2018. This favors postradiation ch rajni. 2. Several small pulmonary nodules measuring up to 5 mm which appear new since CT of August 15, 2018. T hese are suspicious for metastases and short-term imaging follow up is recommended. 3. Mediastinal and right hilar infiltration which is nonspecific but similar to prior CT. This likely reflects post radiation change but should be assessed on subsequent exams. Electronically signed by: Foster Prado M.D. 04/02/2019 10:02 PM
[2019-04-02] MEDS: DOXYCYCLINE HYCLATE 100 MG in DEXTROSE 5% 100 ML IV SCH (22:38)
[2019-04-02] MEDS ORDERED: SODIUM CHLORIDE 0.9% 500 ML IV ONE (23:10)
[2019-04-03] MEDS: SODIUM CHLORIDE 0.9% 1000ML 1,000 ML IV SCH ×2 (00:16→09:37)
[2019-04-03] MEDS: LEVALBUTEROL HCL 1.25 MG/3 ML NEB NEB SCH ×4 (00:56→18:57)
[2019-04-03 03:02] LABS: Hematocrit (blood only) 29.8 % (37-47); Immature Granulocytes # (auto) 0.01 K/uL (0.00-0.02); Immature Granulocytes % (auto) 0.1 %; Lymphocytes # (auto) 0.15 K/uL (1.2-3.4); Lymphocytes % (auto) 1.5 %; Mean Corpuscular Hgb Conc 33.6 g/dL (32-36); Mean Corpuscular Volume 89.5 fL (80-100); Mean Platelet Volume 9.1 fL (7.4-10.4); Monocytes # (auto) 0.34 K/uL (0.11-0.59); Monocytes % (auto) 3.3 %; Neutrophils # (auto) 9.75 K/uL (1.4-6.5); Neutrophils % (auto) 95.1 %; Platelet Count 184 K/uL (130-400); RDW Standard Deviation 45.6 fL (36.4-46.3); Red Blood Count 3.33 M/uL (4.2-5.4); White Blood Count 10.25 K/uL (4.8-10.8)
[2019-04-03 03:28] LABS: Albumin Level 2.7 gm/dl (3.4-5.0); BUN Creatinine Ratio 18.4 (10-20); Calcium 8.4 mg/dl (8.5-10.1); Creatinine Clr Calc Pharmacy 47.3 ml/min; Est GFR (African American) 69.8; Est GFR (Non-African American) 60.2; Potassium 3.8 mmol/L (3.5-5.1)
[2019-04-03 03:30] LABS: Albumin Globulin Ratio 0.8 (0.9-2); Bilirubin,Total 0.4 mg/dl (0.2-1); Globulin 3.5 gm/dl (2.5-4.0); Total Protein 6.2 gm/dl (6.4-8.2)
[2019-04-03 06:29] LABS: Estimated Average Glucose 117 mg/dl; Hemoglobin A1C 5.7 % (4.5-5.6)
[2019-04-03] MEDS: predniSONE 20 MG TAB PO SCH (09:37)
[2019-04-03] MEDS: guaiFENesin 600 MG TABCR PO SCH ×2 (09:37→20:17)
[2019-04-03] MEDS: PARoxetine HCl 20 MG TAB PO SCH (09:37)
[2019-04-03] MEDS: FUROSEMIDE 40 MG TAB PO SCH (09:37)
[2019-04-03] MEDS: PANTOprazole 40 MG TAB PO SCH ×2 (09:38→20:18)
[2019-04-03] MEDS: MULTIVITAMIN TAB PO SCH (09:38)
[2019-04-03] MEDS: ASPIRIN 81 MG ECTAB PO SCH (09:38)
[2019-04-03] MEDS: LOSARTAN POTASSIUM 50 MG TAB PO SCH (09:38)
[2019-04-03] MEDS: BUDESONIDE/FORMOTEROL FUMARATE 160/4.5 60 PUFFS/INHALER INH SCH ×2 (09:38→20:18)
[2019-04-03] MEDS: dilTIAZem HCL 180 MG CAPCR PO SCH (09:38)
[2019-04-03] MEDS: DOXYCYCLINE HYCLATE 100 MG in DEXTROSE 5% 100 ML IV SCH (09:42)
[2019-04-03] MEDS: CEFEPIME 2,000 MG in SYRINGE 7.5 ML IV SCH ×2 (09:44→21:13)
[2019-04-03] MEDS: ENOXAPARIN INJ 40 MG/0.4 ML SYR SQ SCH (13:51)
--- NOTE | 2019-04-03 16:35 | Family Medicine Progress Note ---
Date of Service April 03, 2019 Assessment & Plan (1) Shortness of breath: Patient is a 73 year old female PMHx Lung Cx, COPD, GERD, [place] R main stem and intermedius bronchus of the lung, who presents initially as a direct admit from [facility] ED with chief complaint of increased shortness of breath and fevers. Dyspnea - Possible Pneumonia -?Pneumonia vs Interstitial Lung Dz 2/2 radiation/chemo -WBC 14.73, Lactate 2.8, Procalcitonin 2.18, TSH 0.237 on admission -Blood and Sputum cultures pending -Chest CT Impression 1. Extensive right perihilar opacity similar to PET/CT of December 22, 2018. This favors postradiation change. 2. Several small pulmonary nodules up to 5 mm which appear new since CT of 08/15/18. Suspicious for mets, short term image f/u recommended. 3. Mediastinal and right hilar infiltration which is nonspecific but similar to prior CT. This likely reflects post radiation change but should be assessed on subsequent exams. -Patient had received Vancomycin and Zosyn at [facility] prior to admission. -Empiric Abx treatment with Cefepime 2g IV Q12H and Doxycycline 100mg PO BID, covering for pseudomonas -NSS 110mL/hr - since DC'd 04/03/19 COPD exacerbation -Prior smoker quit 40 years ago, 1 PPD x 15 years -Scheduled Budesonide/Formoterol BID, Levalbuterol 1.25g Q6H, Guaifenesin 1200mg Q12H, -Prednisone 40mg QD -PRN Albuterol, Levalbuterol. -2L O2 at bedtime, patient at baseline. Sepsis -On admission patient was Tachycardic 91bpm, Tachypneic 26 breaths pm, Lactate 2.8 with 5.4 bump after 2 hours, WBC 14.73 -?2/2 pneumonia -Lactate resolved at 2.0, WBC 10.25 on 04/03/19 -Pt still tachycardic, but appears to be so at baseline. Hx Lung Cancer -Significant lung cancer history dating back to 2012. -Treated in the past with radiation and Paclitaxel + Carboplatin, last chemo in August 2018 -Currently being treated with immunotherapy per patient. -Dyspnea could be 2/2 postradiation changes as noted above. -Consult Hematology, appreciate recs. GERD -Continue Protonix 40mg BID HLD -Continue Atorvastatin 20mg QD -Continue ASA 81mg Depression -Continue Paxil 20mg PO QAM Hypertension -Continue Losartan 50mg QAM -Continue Cardizem 180mg QAM -Continue Lasix 40 mg QAM FEN/GI - Regular Diet DVT PPx - Enoxaparin 40mg QD Code - Full Code Dispo - MedSurg w/ tele Present on Admission?: Yes (2) Carcinoma in situ of lung: Present on Admission?: Yes (3) COPD (chronic obstructive pulmonary disease): (4) HLD (hyperlipidemia): Present on Admission?: Yes (5) Depression: Present on Admission?: Yes (6) Hypertension: Present on Admission?: Yes Supervising Physician Co-Signing Physician Notes Resident Physician Supervision Note: I independently interviewed and examined the patient and verified the phillip history and physical, reviewed labs and image studies, discussed the case with the resident Dr. Langley and agree with the findings and care plan. Subjective Patient is a very pleasant 73 year old female who notes she is feeling significantly improved this morning when compared to yesterday afternoon. She states that she no longer has shortness of breath and that she was able to have a relatively restful night. She notes that she does have an extensive lung cancer history and that she had recently finished receiving chemo in August of 2018. Currently patient states she has some slight dyspnea on exertion, which is chronic for her, and occasional cough with white/yellow sputum production. Review of Systems Constitutional: no fever, no chills, no fatigue and no weakness Eyes: no photophobia Ear, Nose, Mouth, Throat: no tinnitus, no dizziness and no nasal discharge Respiratory: + cough, + dyspnea on exertion and + sputum production; no hemoptysis Cardiovascular: + dyspnea on exertion; no chest pain, no chest pain at rest and no calf pain Gastrointestinal: no abdominal pain, no nausea, no vomiting, no constipation and no diarrhea/loose stools Genitourinary: no dysuria, no urinary frequency, no urinary hesitancy and no hematuria Musculoskeletal: no muscle weakness Neurologic: no unsteadiness, no falls, no generalized weakness, no headache(s) and no confusion Physical Exam Constitutional: well developed, well nourished, + well hydrated and cooperative; no acute distress Eyes: normal visual [place] by confrontation, PERRL and EOM intact bilaterally ENMT: external ear and nose normal, oropharynx normal Ears: no hearing impairment Neck: trachea midline, no thyromegaly Respiratory: normal respiratory effort and + cough; no respiratory distress, no retractions and not tachypneic Auscultation: + wheezes (Noted in all lung [place], worse in upper R field ) Cardiovascular: Rate/Rhythm: regular rhythm and + tachycardic Heart Sounds: normal S1 and normal S2 Extremities: normal capillary refill; no calf tenderness and no edema Gastrointestinal (Abdomen): Inspection/Auscultation: abdomen normal to inspection and normal bowel sounds Percussion/Palpation: abdomen soft; abdomen nontender, no guarding and abdomen not rigid Musculoskeletal: no cyanosis or clubbing, extremities motor strength 5/5 Psychiatric: A+Ox3, euthymic affect Results & Data Vital Signs (Past 12 Hours) Vital Signs Temp Pulse Pulse Resp BP Pulse Ox Pulse Ox 04/03/19 15:54 104 H 04/03/19 15:45 96 04/03/19 15:26 36.8 C 109 H 20 144/78 H 95 04/03/19 13:17 101 H 16 95 04/03/19 11:08 36.7 C 104 H 18 126/68 94 04/03/19 10:08 96 04/03/19 08:00 71 04/03/19 07:36 36.6 C 97 H 20 121/67 97 04/03/19 07:02 94 H 18 96 Pulse Ox 04/03/19 15:54 04/03/19 15:45 04/03/19 15:26 04/03/19 13:17 04/03/19 11:08 04/03/19 10:08 95 04/03/19 08:00 04/03/19 07:36 04/03/19 07:02 Laboratory Results Abnormal lab results 04/02/19 04/02/19 04/02/19 Range/Units 20:09 20:09 20:09 WBC 14.73 H (4.8-10.8) K/uL RBC 3.80 L (4.2-5.4) M/uL Hgb 11.7 L (12.0-16.0) g/dL Hct 33.8 L (37-47) % Immature Gran # (Auto) 0.04 H (0.00-0.02) K/uL Neut # (Auto) 14.17 H (1.4-6.5) K/uL Lymph # (Auto) 0.24 L (1.2-3.4) K/uL Sodium 130 L (136-145) mmol/L Potassium 3.4 L (3.5-5.1) mmol/L Chloride 96 L (98-107) mmol/L Glucose 224 H (70-99) mg/dl Hemoglobin A1c (4.5-5.6) % Lactate 2.8 H* (0.4-2.0) mmol/L Calcium (8.5-10.1) mg/dl AST (15-37) U/L NT-Pro-B Natriuret Pep (0-900) pg/ml Total Protein (6.4-8.2) gm/dl Albumin (3.4-5.0) gm/dl Albumin/Globulin Ratio (0.9-2) Procalcitonin (0-0.5) ng/ml TSH (0.300-4.500) uIu/ml 04/02/19 04/02/19 04/02/19 Range/Units 20:09 20:09 22:01 WBC (4.8-10.8) K/uL RBC (4.2-5.4) M/uL Hgb (12.0-16.0) g/dL Hct (37-47) % Immature Gran # (Auto) (0.00-0.02) K/uL Neut # (Auto) (1.4-6.5) K/uL Lymph # (Auto) (1.2-3.4) K/uL Sodium (136-145) mmol/L Potassium (3.5-5.1) mmol/L Chloride (98-107) mmol/L Glucose (70-99) mg/dl Hemoglobin A1c (4.5-5.6) % Lactate 5.4 H* (0.4-2.0) mmol/L Calcium (8.5-10.1) mg/dl AST (15-37) U/L NT-Pro-B Natriuret Pep 1046 H (0-900) pg/ml Total Protein (6.4-8.2) gm/dl Albumin (3.4-5.0) gm/dl Albumin/Globulin Ratio (0.9-2) Procalcitonin 2.18 H (0-0.5) ng/ml TSH 0.237 L (0.300-4.500) uIu/ml 04/03/19 04/03/19 04/03/19 Range/Units 02:46 02:46 02:46 WBC (4.8-10.8) K/uL RBC 3.33 L (4.2-5.4) M/uL Hgb 10.0 L (12.0-16.0) g/dL Hct 29.8 L (37-47) % Immature Gran # (Auto) (0.00-0.02) K/uL Neut # (Auto) 9.75 H (1.4-6.5) K/uL Lymph # (Auto) 0.15 L (1.2-3.4) K/uL Sodium 134 L (136-145) mmol/L Potassium (3.5-5.1) mmol/L Chloride (98-107) mmol/L Glucose 234 H (70-99) mg/dl Hemoglobin A1c 5.7 H (4.5-5.6) % Lactate (0.4-2.0) mmol/L Calcium 8.4 L (8.5-10.1) mg/dl AST 12 L (15-37) U/L NT-Pro-B Natriuret Pep (0-900) pg/ml Total Protein 6.2 L (6.4-8.2) gm/dl Albumin 2.7 L (3.4-5.0) gm/dl Albumin/Globulin Ratio 0.8 L (0.9-2) Procalcitonin (0-0.5) ng/ml TSH (0.300-4.500) uIu/ml Medications Administered Current Inpatient Medications Acetaminophen (Tylenol) 650 mg PO Q4H PRN PRN Reason: Moderate Pain Stop: 05/02/19 17:07 Albuterol (Ventolin Hfa) 2 puffs INH Q6H PRN PRN Reason: shortness of breath or wheezin Stop: 05/02/19 20:20 Alprazolam (Xanax) 0.25 mg PO BID PRN PRN Reason: Anxiety Stop: 05/02/19 20:20 Aspirin (Ecotrin Ectab) 81 mg PO QAM ERICKA Stop: 05/03/19 08:59 Last Admin: 04/03/19 09:38 Dose: 81 mg Documented by: Atorvastatin Calcium (Lipitor) 20 mg PO QPM [facility] Stop: 05/02/19 20:59 Last Admin: 04/02/19 21:55 Dose: 20 mg Documented by: Budesonide/Formoterol Fumarate (Symbicort 160mcg/4.5mcg) 1 puffs INH BID [facility] Stop: 05/02/19 20:59 Last Admin: 04/03/19 09:38 Dose: 1 puffs Documented by: Diltiazem HCl (Cardizem Cd) [facility] Stop: 05/03/19 08:59 Last Admin: 04/03/19 09:38 Dose: 180 mg Documented by: Doxycycline Hyclate (Vibramycin) 100 mg PO BID [facility]; Protocol Stop: 04/09/19 20:59 Enoxaparin Sodium (Lovenox) 40 [facility] Stop: 05/03/19 10:59 Last Admin: 04/03/19 13:51 Dose: 40 mg Documented by: Furosemide (Lasix) 40 mg PO QAM [facility] Stop: 05/03/19 08:59 Last Admin: 04/03/19 09:37 Dose: 40 mg Documented by: Guaifenesin (Mucinex) 1,200 mg PO Q12 [facility] Stop: 05/02/19 20:59 Last Admin: 04/03/19 09:37 Dose: 1,200 mg Documented by: Cefepime HCl 2,000 mg/ Syringe 20 mls @ 5.5 mls/min IV Q12H [facility]; Protocol Stop: 04/09/19 21:59 Last Admin: 04/03/19 09:44 Dose: 5.5 mls/min Documented by: Levalbuterol HCl (Xopenex 1.25mg/3ml Neb) 1.25 mg NEB Q6R [facility] Stop: 05/02/19 18:59 Last Admin: 04/03/19 18:57 Dose: 1.25 mg Documented by: Levalbuterol HCl (Xopenex 1.25mg/3ml Neb) 1.25 mg NEB Q2H PRN PRN Reason: Shortness Of Breath Stop: 05/02/19 18:06 Losartan Potassium (Cozaar) 50 [facility] Stop: 05/03/19 08:59 Last Admin: 04/03/19 09:38 Dose: 50 mg Documented by: Multivitamins (Multivitamin Tab) 1 tab PO QAM [facility] Stop: 05/03/19 08:59 Last Admin: 04/03/19 09:38 Dose: 1 tab Documented by: Ondansetron HCl (Zofran) 4 mg IV Q4H PRN PRN Reason: Nausea And Vomiting Stop: 05/02/19 17:07 Pantoprazole Sodium (Protonix) 40 mg PO BID [facility] Stop: 05/02/19 20:59 Last Admin: 04/03/19 09:38 Dose: 40 mg Documented by: Paroxetine HCl (Paxil) 20 mg PO QAM [facility] Stop: 05/03/19 08:59 Last Admin: 04/03/19 09:37 Dose: 20 mg Documented by: Prednisone (Prednisone) 40 mg PO DAILY [facility] Stop: 05/03/19 08:59 Last Admin: 04/03/19 09:37 Dose: 40 mg Documented by: PG Care Time/CCT Total # of Minutes Spent Total Time Spent with Patient: Total time spent is greater than 50% in coordination of care (as documented) at patient's floor/unit and/or counseling patient: Resident Activity Tracking Resident Involvement: Resident Care Provided Care Provided: Adult Hospital Medicine
[2019-04-03] MEDS: DOXYCYCLINE HYCLATE 100 MG CAP PO SCH (20:17)
[2019-04-03] MEDS: ATORVASTATIN 20 MG TAB PO SCH (20:17)
[2019-04-04] MEDS: LEVALBUTEROL HCL 1.25 MG/3 ML NEB NEB SCH ×3 (00:50→13:03)
[2019-04-04 06:45] LABS: Hematocrit (blood only) 30.3 % (37-47); Immature Granulocytes # (auto) 0.03 K/uL (0.00-0.02); Immature Granulocytes % (auto) 0.3 %; Lymphocytes # (auto) 0.55 K/uL (1.2-3.4); Lymphocytes % (auto) 5.5 %; Mean Corpuscular Hemoglobin 30.1 pg (25-34); Mean Corpuscular Volume 91.3 fL (80-100); Mean Platelet Volume 9.4 fL (7.4-10.4); Monocytes # (auto) 0.53 K/uL (0.11-0.59); Monocytes % (auto) 5.3 %; Neutrophils # (auto) 8.81 K/uL (1.4-6.5); Neutrophils % (auto) 88.9 %; Platelet Count 213 K/uL (130-400); RDW Coefficient of Variation 14.3 % (11.5-14.5); RDW Standard Deviation 47.7 fL (36.4-46.3); Red Blood Count 3.32 M/uL (4.2-5.4); White Blood Count 9.92 K/uL (4.8-10.8)
[2019-04-04 07:17] LABS: Albumin Level 2.8 gm/dl (3.4-5.0); BUN Creatinine Ratio 23.7 (10-20); Est GFR (African American) 68.9; Est GFR (Non-African American) 59.4; Potassium 3.4 mmol/L (3.5-5.1)
[2019-04-04 07:20] LABS: Albumin Globulin Ratio 0.8 (0.9-2); Bilirubin,Total 0.3 mg/dl (0.2-1); Globulin 3.7 gm/dl (2.5-4.0); Total Protein 6.5 gm/dl (6.4-8.2)
[2019-04-04] MEDS: PARoxetine HCl 20 MG TAB PO SCH (08:42)
[2019-04-04] MEDS: guaiFENesin 600 MG TABCR PO SCH (08:42)
[2019-04-04] MEDS: MULTIVITAMIN TAB PO SCH (08:42)
[2019-04-04] MEDS: FUROSEMIDE 40 MG TAB PO SCH (08:42)
[2019-04-04] MEDS: BUDESONIDE/FORMOTEROL FUMARATE 160/4.5 60 PUFFS/INHALER INH SCH (08:42)
[2019-04-04] MEDS: LOSARTAN POTASSIUM 50 MG TAB PO SCH (08:42)
[2019-04-04] MEDS: dilTIAZem HCL 180 MG CAPCR PO SCH (08:42)
[2019-04-04] MEDS: ENOXAPARIN INJ 40 MG/0.4 ML SYR SQ SCH (08:43)
[2019-04-04] MEDS: predniSONE 20 MG TAB PO SCH (08:43)
[2019-04-04] MEDS: PANTOprazole 40 MG TAB PO SCH (08:43)
[2019-04-04] MEDS: ASPIRIN 81 MG ECTAB PO SCH (08:43)
[2019-04-04] MEDS: DOXYCYCLINE HYCLATE 100 MG CAP PO SCH (08:43)
[2019-04-04] MEDS: CEFEPIME 2,000 MG in SYRINGE 7.5 ML IV SCH (08:44)
--- NOTE | 2019-04-04 11:57 | Discharge Summary ---
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 On the follow-up patient had recurrent RUL collapse and stent was removed in November 2018. Patient uses 2 L of oxygen only at night. Patient just completed her chemotherapy last and she was recommended to continue with Symbicort 160/4.5 twice daily, 4 times daily duo nebs, nocturnal supplemental oxygen via nasal cannula. At that point patient was given influenza vaccination by oncology. Today labs are reviewed which shows a viable cell count of 14.73, without left shift, which could be reactive status post recent chemotherapy. Hemoglobin is 11.7, hematocrit 33.8, platelets 224, PT 12.2, INR 1.2, APTT 29.5. Sodium 130, potassium 3.4, chloride 96, BUN 14, creatinine 1.12, GFR 48.7, lactate pending. TSH pending, liver enzymes pending. Chest x-rays from [facility] shows a new large spiculated mass in the right hilar/suprahilar region. On the prior CT scan there were some lymph nodes in the right hilar and suprahilar region which were borderline significance by size criteria. Decision was made to admit patient to [facility] on telemetry for further evaluation of fever with shortness of breath. Admission Exam Per Admitting Provider Constitutional: WD/WN, vitals as above well developed and + frail appearing Eyes: PERRL, conjunctivae normal, anicteric sclerae ENMT: external ear and nose normal, oropharynx normal Neck: trachea midline, no thyromegaly Respiratory: Auscultation: + crackles, + wheezes and + bronchovesicular breath sounds Cardiovascular: Heart Sounds: normal S1 and normal S2 Palpation: + palpable S3 Vessels: dorsalis pedis pulses present Gastrointestinal (Abdomen): normal bowel sounds, soft, nontender, no hepatosplenomegaly Musculoskeletal: no cyanosis or clubbing, extremities motor strength 5/5 Skin: no rashes, warm and dry Neurologic: patellar DTR's 2+ bilat, sensation intact Psychiatric: A+Ox3, euthymic affect Lymphatic: no cervical or axillary lymphadenopathy Principal Diagnosis Pneumonia Discharge Exam Constitutional well developed, well nourished, + well hydrated and cooperative; no acute distress Eyes normal visual [place] by confrontation, PERRL and EOM intact bilaterally ENMT external ear and nose normal, oropharynx normal Ears: no hearing impairment Neck trachea midline, no thyromegaly Respiratory normal respiratory effort; no respiratory distress, no retractions, no cough and not tachypneic Auscultation: + wheezes (Lower R Lung Field); breath sounds present and no diminished lung sounds Cardiovascular Rate/Rhythm: regular rhythm and + tachycardic Heart Sounds: normal S1 and normal S2 Extremities: normal capillary refill; no calf tenderness and no edema Gastrointestinal (Abdomen) Inspection/Auscultation: abdomen normal to inspection and normal bowel sounds Percussion/Palpation: abdomen soft; abdomen nontender, no guarding and abdomen not rigid Musculoskeletal no cyanosis or clubbing, extremities motor strength 5/5 Psychiatric A+Ox3, euthymic affect Discharge Data Allergies Allergy/AdvReac Type Severity Reaction Status Date / Time hydrochlorothiazide Allergy Intermediate DIZZY, Verified 03/30/19 09:38 "LOOPY" FEELING Consultations 04/02/19 17:10 Consult Case Management - Discharge Planning Routine 04/02/19 21:52 Consult Hematology Routine Ordered Studies 04/02/19 17:13 CT chest wo con Stat Hospital Course (1) Shortness of breath: Patient is a 73 year old female PMHx Lung Cx, COPD, GERD, [place] R main stem and intermedius bronchus of the lung, who presents initially as a direct admit from [facility] ED with chief complaint of increased shortness of breath and fevers. Dyspnea - Possible Pneumonia -?Pneumonia vs Interstitial Lung Dz 2/2 radiation/chemo -WBC 14.73, Lactate 2.8, Procalcitonin 2.18, TSH 0.237 on admission -Blood and Sputum cultures were negative. -Chest CT Impression 1. Extensive right perihilar opacity similar to PET/CT of December 22, 2018. This favors postradiation change. 2. Several small pulmonary nodules up to 5 mm which appear new since CT of 08/15/18. Suspicious for mets, short term image f/u recommended. 3. Mediastinal and right hilar infiltration which is nonspecific but similar to prior CT. This likely reflects post radiation change. -Patient had received Vancomycin and Zosyn at [facility] prior to admission. -Empiric Abx treatment with Cefepime 2g IV Q12H and Doxycycline 100mg PO BID was given -Patient D/C with Azithromycin Z pack to complete in the outpatient. COPD exacerbation -Prior smoker quit 40 years ago, 1 PPD x 10 years -Pulmonary Function Test 09/24/2017 -FVC: 1.74/62, FEV1: 1.17/55, FEV1/FVC: 67, FEF 25-75%: 0.64/33% (27% change), FVC: 1.74/62, TLC 3.4/80, RV: 2.11/108. DLCO: 63, dL/VA: 132 -Scheduled Budesonide/Formoterol BID, Levalbuterol 1.25g Q6H, Guaifenesin 1200mg Q12H, -Prednisone 40mg QD -PRN Albuterol, Levalbuterol. -2L O2 at bedtime, patient at baseline. Sepsis -On admission patient was Tachycardic 91bpm, Tachypneic 26 breaths pm, Lactate 2.8 with 5.4 bump after 2 hours, WBC 14.73 -?2/2 pneumonia -Lactate resolved at 2.0, WBC 10.25 on 04/03/19 -Pt continued to have elevated heart rate from 90-100's, but appears to be so at baseline. -Resolved. Hx Lung Cancer -Significant lung cancer history dating back to 2012. -Treated in the past with radiation and Paclitaxel + Carboplatin, last chemo in August 2018 -Currently being treated with immunotherapy per patient. -Dyspnea could be 2/2 postradiation changes as noted above. -Consulted Hematology. GERD -Continued Protonix 40mg BID HLD -Continued Atorvastatin 20mg QD -Continued ASA 81mg Depression -Continued Paxil 20mg PO QAM Hypertension -Continued Losartan 50mg QAM -Continued Cardizem 180mg QAM -Continued Lasix 40 mg QAM FEN/GI - Regular Diet DVT PPx with Enoxaparin 40mg QD inpatient. Code - Full Code Dispo - Home (2) Carcinoma in situ of lung: (3) COPD (chronic obstructive pulmonary disease): (4) HLD (hyperlipidemia): (5) Depression: (6) Hypertension: Total Time Total Time Spent Total Time Spent (In Minutes): see attending attestation Discharge Plan Discharge Items Patient Disposition: Home - Self-Care Reason For Visit: FEVER, SHORTNESS OF BREATH Discharge Diagnosis: Dyspnea secondary to Pneumonia Activity: Resume your previous activity Non-emergency contact: Primary Care Provider Call non-emergency contact if: you have any medication questions, your symptoms worsen and your temperature is above 101 Follow-up/Referrals: Ari Renee DO [Primary Care Provider] - Diet: Regular Addtl Attending Provider Instructions: Ms. Arellano, alin were admitted to [facility] directly from [facility] ED for a chief complaint of shortness of breath and fevers. Upon your presentation there was concern that you may have had a severe infection, sepsis, that was expected to be related to a pneumonia. You were treated with IV antibiotics, IV Fluids, Steroids, and inhalers/nebulizers to improve your breathing. You improved significantly and currently note no difficulty breathing and are feeling well. You are being discharged to your home. Please follow the instructions below: -Please follow up with your PCP within the next 1 week. -You are being sent home with an antibiotic, please take the antibiotic Azithromycin as prescribed on the packaging. 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 in [place], [place]. -If you notice worsening of your symptoms, please call your PCP or return to the ED for evaluation. Pending Studies at Discharge: Yes (Sputum Cultures) Studies:: CT OF THE CHEST WITHOUT IV CONTRAST CLINICAL HISTORY: Cough. Airspace opacities. Lung cancer. COMPARISON STUDY: Chest radiograph March 30, 2019. Chest CT September 05, 2018. PET/CT December 22, 2018. CT DOSE: 297.69 mGy.cm TECHNIQUE: Axial images of the chest were obtained without IV contrast. Images were reviewed in the axial, sagittal, and coronal planes. IV contrast was not administered for this examination. Automated exposure control was utilized for the study. A dose lowering technique was utilized adhering to the principles of ALARA. FINDINGS: No enlarged axillary, mediastinal or hilar lymph nodes are present. Mediastinal infiltration is noted. This was shown on CT of December 22, 2018. Extensive right perihilar opacity is similar to prior PET/CT of December 22, 2018. There is no pneumothorax or pleural effusion. There are several indeterminate pulmonary nodules including a 5 mm left lower lobe nodule on image 174, a 5 mm left lower lobe nodule on image 85 and a 4 mm left upper lobe nodule on image 37. These were not shown on a chest CT of August 15, 2018. No suspicious osseous lesions are noted. There are multiple right-sided rib deformities. Upper abdomen is unremarkable this unenhanced examination. IMPRESSION: 1. Extensive right perihilar opacity similar to PET/CT of December 22, 2018. This favors postradiation change. 2. Several small pulmonary nodules measuring up to 5 mm which appear new since CT of August 15, 2018. These are suspicious for metastases and short-term imaging follow up is recommended. 3. Mediastinal and right hilar infiltration which is nonspecific but similar to prior CT. This likely reflects post radiation change but should be assessed on subsequent exams. Electronically signed by: Foster Prado M.D. 04/02/2019 10:02 PM Dictated: 04/02/192148 Transcribed: 04/02/192148 Stand-Alone Forms: My [facility] [employer]), Smoking Cessation Medications and DC Order Prescriptions: New azithromycin 250 mg tablet See Rx Instructions .ROUTE .COMPLEX Qty: 6 RF: 0 Continued albuterol sulfate [Ventolin HFA] 90 mcg/actuation HFA aerosol inhaler 2 puffs INH Q6H PRN (Reason: shortness of breath or wheezing) Qty: 18 RF: 3 losartan 50 mg tablet 50 mg PO QAM RF: 0 diltiazem HCl [Cardizem CD] 180 mg capsule,extended release 24hr 180 mg PO QAM RF: 0 lansoprazole [Prevacid] 15 mg Capsule,Delayed Release(Dr/Ec) 15 mg PO BID RF: 0 paroxetine HCl 20 mg Tablet 20 mg PO DAILY RF: 0 albuterol sulfate [Proventil HFA] 90 mcg/actuation Hfa Aerosol Inhaler 2 puff inhalation Q4 PRN (Reason: Shortness Of Breath) RF: 0 albuterol sulfate 2.5 mg/0.5 mL Solution For Nebulization 2.5 mg INHALATION QID RF: 0 diltiazem HCl 120 mg Capsule,Extended Release 24 Hr 120 mg PO DAILY RF: 0 atorvastatin [Lipitor] 20 mg Tablet 20 mg PO DAILY RF: 0 multivitamin Tablet 1 tab PO DAILY RF: 0 Symbicort 160-4.5 mcg/actuation Hfa Aerosol Inhaler 2 puff INHALATION BID RF: 0 losartan [Cozaar] 50 mg Tablet 50 mg PO DAILY RF: 0 furosemide [Lasix] 40 mg Tablet 40 mg PO DAILY RF: 0 atorvastatin 20 mg Tablet 20 mg PO QPM RF: 0 ipratropium-albuterol 0.5 mg-3 mg(2.5 mg base)/3 mL Solution For Nebulization 3 ml INHALATION QID RF: 0 aspirin 81 mg Tablet,Delayed Release (Dr/Ec) 81 mg PO QAM RF: 0 alprazolam 0.25 mg Tablet 0.25 mg PO BID PRN (Reason: Anxiety) RF: 0 paroxetine HCl 20 mg Tablet 20 mg PO QAM RF: 0 Symbicort 160-4.5 mcg/actuation Hfa Aerosol Inhaler 1 puff INHALATION BID RF: 0 Discontinued furosemide 40 mg tablet 40 mg PO QAM RF: 0 aspirin [Aspir-81] 81 mg Tablet,Delayed Release (Dr/Ec) 81 mg PO DAILY RF: 0 alprazolam 0.25 mg Tablet 0.25 mg PO BID PRN (Reason: Anxiety) RF: 0 multivitamin Tablet 1 tab PO QAM RF: 0 lansoprazole [Prevacid] 15 mg Capsule,Delayed Release(Dr/Ec) 15 mg PO BID RF: 0 Discharge Orders: Discharge Order (Routine); Ordered 04/04/19 Ordered By: Storm Langley Admission Data Admit Date/Time: 04/02/19 18:56 Attending Provider: Rupa Mathews Admit Provider: Maria Ravi Primary Care Provider: Ari Renee Other Providers: Adi Cartwright ; Maria Ravi Other Interventions: Discharge Summary Assessment (RN) Last Done: 04/04/19 14:51 DC Date/Time DO NOT enter until pt leaves facility: 04/04/19 16:32 Supervising Physician Co-Signing Physician Notes Resident Physician Supervision Note: I independently interviewed and examined the patient and verified the phillip history and physical, reviewed labs and image studies, discussed the case with the resident Dr. Langley and agree with the findings and care plan. Resident Activity Tracking Resident Involvement: Resident Care Provided Care Provided: Adult [facility]
--- NOTE | 2019-04-04 11:59 | Consultation Report ---
DATE OF CONSULTATION: 04/04/2019 NO DICTATION
--- NOTE | 2019-04-04 12:33 | Consultation Report ---
DATE OF CONSULTATION: 04/04/2019 REASON FOR CONSULTATION: A 73-year-old female with non-small cell lung cancer admitted for acute onset shortness of breath. HISTORY OF PRESENT ILLNESS: Linsey is a very pleasant 73-year-old female patient with past history of nonsmall cell lung cancer and COPD. Linsey has been with me since 2018 when she was originally diagnosed. 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 After her initial dose, her performance status faltered dramatically resulting in multiple hospitalizations. In October of this year, she suffered from a complex pneumonia. Thus, it was decided to proceed with durvalumab in lieu of completing consolidation. She has received 3-4 cycles thus far which has been well tolerated. However, she had presented to [facility] Emergency Room for shortness of breath and low-grade fever that started on the morning of the . She was subsequently transferred to [facility], put on broad spectrum antibiotics, inhaled corticosteroids and bronchodilators. The patient showed a dramatic improvement within 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 However, there are several small pulmonary nodules measuring up to 5 mm, which appeared to be new as compared to CT scan 08/2018. Again, at bedside today, Linsey is feeling much better and primary service is requesting opinion on the significance of these new radiographic findings. PAST MEDICAL HISTORY: Significant for COPD, locally advanced nonsmall cell lung cancer, hypertension, hyperlipidemia, asthma. PAST SURGICAL HISTORY: History of appendectomy, bronchoscopy, cataract surgery, colonoscopy, foot surgery, hysterectomy, rotator cuff repair, total left shoulder replacement and status post bronchial stent. MEDICATIONS: Prior to admission include Symbicort 1 puff inhaled b.i.d., alprazolam 0.25 mg p.o. b.i.d., aspirin 81 mg p.o. daily, atorvastatin 20 mg p.o. daily, ipratropium/albuterol 3 mL inhaled q.i.d., Prevacid 15 mg p.o. b.i.d., multivitamin 1 p.o. daily, paroxetine 20 mg p.o. daily, diltiazem hydrochloride 180 mg p.o. daily, furosemide 40 mg p.o. daily, losartan 50 mg p.o. daily, albuterol inhaler 2 puffs inhaled q.6 hours p.r.n. ALLERGIES: HYDROCHLOROTHIAZIDE. SOCIAL HISTORY: The patient is a , lives with mother and sister. She is retired. She is a reformed smoker. Negative for alcohol or illicit substances. REVIEW OF SYSTEMS: Again, as per HPI, most notably for low-grade fever and acute onset shortness of breath. She is not anorexic or losing weight. SKIN: No history of dermatoses. No current rashes or lesions. HEENT: She denies headaches, lightheadedness or dizziness. No acute visual or hearing deficits. She wears corrective lenses; however. LYMPH: No history of lymphoproliferative disease. CARDIAC: No current angina or palpitations. PULMONARY: As per HPI. Negative for cough or hemoptysis at present. GASTROINTESTINAL: Negative for abdominal pain, nausea, vomiting, diarrhea or constipation, hematochezia or melena stools. GENITOURINARY: No hematuria, dysuria, urinary incontinence. PSYCHIATRIC: Negative for anxiety, depression or psychoses. ENDOCRINE: Negative for diabetes or thyroid disease. NEUROLOGIC: Negative for seizure, stroke, or migraine headache. MUSCULOSKELETAL: Negative for focal muscle weakness or arthralgias. HEMATOLOGIC: Positive for chronic anemia. PHYSICAL EXAMINATION: GENERAL: Very pleasant 73-year-old female, in no acute distress. VITAL SIGNS: Temperature 36.6, pulse 91, respiratory rate 16, blood pressure 150/73. SKIN: Warm, dry, noncyanotic without petechia, rash or ecchymosis. HEENT: Head is atraumatic, normocephalic. Eyes: PERRLA, EOMI. Sclerae nonicteric. No conjunctival injection. Nares are patent without rhinorrhea or discharge. Throat is clear. Tongue is midline. Mucous membranes are moist. NECK: Supple without JVD or thyromegaly. LYMPHATICS: No cervical or supraclavicular palpable nodes. HEART: Regular rate and rhythm. No clicks, rubs, murmurs or gallops. LUNGS: Clear to auscultation bilaterally. ABDOMEN: Obese, soft, nontender, nondistended. EXTREMITIES: No clubbing, cyanosis or edema. MUSCULOSKELETAL: Strength and pulses are equal in all 4 quadrants. NEUROLOGICALLY: She is awake, alert and oriented x3. Cranial nerves II-XII are grossly intact. LABORATORY DATA: WBC count 9920, hemoglobin 10, platelet count 213,000. Sodium 138, potassium 3.4, chloride 103, carbon dioxide 29, creatinine 0.95, BUN 23, albumin 2.8. IMPRESSION: 1. Shortness of breath, presumed exacerbation of chronic obstructive pulmonary disease versus pneumonia. 2. Locally advanced non-small cell lung cancer. 3. History of gastroesophageal reflux disease. 4. History of hyperlipidemia. 5. History of hypertension. 6. Mild hypoalbuminemia. PLAN: I have been asked to render an opinion regarding radiographic findings in Linsey's case. Linsey has been a patient at [facility] since February of 2018 when she was diagnosed with locally advanced squamous cell carcinoma of the lung. She successfully completed chemoradiation; however, unfortunately aborted consolidative chemotherapy because of poor tolerance, one cycle out of three was administered. Nonetheless, per standard, went on to provide Linsey with durvalumab, which she has received at least 3 or 4 treatments so far. The pulmonary nodules are somewhat concerning, but as I explained to Linsey much too early to determine ineffectiveness of current therapy. Therefore, we will plan to follow up CT scan here in 2-3 months and if there is documented interval growth, then consider a change of therapy. As it pertains to her admitting symptoms, the monoclonal antibody durvalumab can actually cause fever and interstitial pneumonitis. There does not appear to be radiographic evidence of emerging pneumonitis. Conceivably, the fever might have been drug related. She has made considerable progress since admission and from an oncologic standpoint could be discharged. Linsey has followup with me later on this week at which time her next dose of chemotherapy is due. I have nothing further to add. I agree with medical management otherwise. Thank you for involving me in Linsey's care.
[2019-04-04 12:34] VITALS: TEMP 97.7; O2SAT 95
[2019-04-04 14:41] VITALS: BP 150/73; PULSE 91
== END 2019-04-04 16:32 | disposition home or self-care (01) | DRG 871 ==
LOC: 2W → OBSVTOIN 18:56 → SUATTDRO 18:56

== ENCOUNTER 2019-04-21 11:46 | Inpatient (IN) ==
[2019-04-21 12:26] LABS: Basophils # (auto) 0.01 K/uL (0-0.2); Basophils % (auto) 0.1 %; Eosinophils # (auto) 0.07 K/uL (0-0.5); Hematocrit (blood only) 28.7 % (37-47); Hemoglobin 9.8 g/dL (12.0-16.0); Immature Granulocytes # (auto) 0.02 K/uL (0.00-0.02); Immature Granulocytes % (auto) 0.3 %; Lymphocytes # (auto) 0.74 K/uL (1.2-3.4); Lymphocytes % (auto) 10.5 %; Mean Corpuscular Hemoglobin 30.8 pg (25-34); Mean Corpuscular Hgb Conc 34.1 g/dL (32-36); Mean Corpuscular Volume 90.3 fL (80-100); Mean Platelet Volume 8.9 fL (7.4-10.4); Monocytes # (auto) 0.83 K/uL (0.11-0.59); Monocytes % (auto) 11.8 %; Neutrophils # (auto) 5.36 K/uL (1.4-6.5); Neutrophils % (auto) 76.3 %; Platelet Count 312 K/uL (130-400); RDW Coefficient of Variation 13.8 % (11.5-14.5); RDW Standard Deviation 45.8 fL (36.4-46.3); Red Blood Count 3.18 M/uL (4.2-5.4); White Blood Count 7.03 K/uL (4.8-10.8)
[2019-04-21] MEDS ORDERED: SODIUM CHLORIDE 0.9% 500 ML IV ONE (12:37)
[2019-04-21 12:43] LABS: Alanine Aminotransferase 31 U/L (12-78); Aspartate Aminotransferase 18 U/L (15-37); BUN Creatinine Ratio 19.1 (10-20); Blood Urea Nitrogen 16 mg/dl (7-18); Calcium 9.4 mg/dl (8.5-10.1); Carbon Dioxide 28 mmol/L (21-32); Chloride 96 mmol/L (98-107); Est GFR (African American) 78.8; Glucose 97 mg/dl (70-99); Lipase 78 U/L (73-393); Magnesium 2.1 mg/dl (1.8-2.4); Potassium 3.9 mmol/L (3.5-5.1); Sodium 131 mmol/L (136-145)
[2019-04-21 12:49] LABS: Albumin Globulin Ratio 0.7 (0.9-2); Alkaline Phosphatase 172 U/L (45-117); Bilirubin,Total 0.5 mg/dl (0.2-1); Globulin 4.5 gm/dl (2.5-4.0); Phosphorus 3.8 mg/dl (2.5-4.9); Total Protein 7.5 gm/dl (6.4-8.2); Troponin I < 0.015 ng/ml (0-0.045)
[2019-04-21 12:57] LABS: Base Excess VBG 4.7 mEq/L; HCO3 VBG 30 mmol/L; Oxygen Saturation VBG < 60.0 %; PCO2 VBG 47 mmHg (38-50); PO2 VBG 22 mmHg; pH VBG 7.42 (7.36-7.41)
[2019-04-21] MEDS ORDERED: OPTIRAY 320 125ml IV PRN (13:09)
--- NOTE | 2019-04-21 14:11 | CT Scan Report ---
CHEST CTA for PULMONARY ARTERIES CT DOSE: 258.31 mGy.cm HISTORY: Shortness of breath. Cough. TECHNIQUE: Multiaxial CT images of the chest were performed following the intravenous administration of contrast to evaluate the pulmonary arteries. Maximal intensity projection images were also obtaine d. A dose lowering technique was utilized adhering to the principles of ALARA. COMPARISON STUDY: Chest CT 04/02/2019. FINDINGS: Chronic compression deformities at T6 and T7 remain unchanged. Old, healed right-sided rib fractures. No suspicious lytic or blastic osseous lesions. There is a left shoulder prosthesis. Limit ed views of the upper abdomen demonstrate a normal liver, spleen, and adrenal glands. Normal caliber thoracic aorta with no evidence for dissection. The heart is normal in size. No pleural or pericardia l effusions. No filling defects within the pulmonary arteries to suggest pulmonary embolus. Focal thi ckening of the midesophagus, unchanged. No change in the soft tissue thickening surrounding the alber a. Partial opacities of the right upper lobe bronchus which has progressed. Moderate focal narrowing at the takeoff of the right middle lobe bronchus, unchanged. The right paramediastinal consolidation is again noted. This is similar to the prior study and favors post radiation change. There is progres sive consolidation within the periphery of the right upper lobe with a few tree-in-bud nodular opacit ies. This may represent a superimposed pneumonia. This is best seen on image 179. A few scattered sub centimeter pulmonary nodules remain unchanged. Dominant nodule measures 5 mm within the left lower lo be on image 167. IMPRESSION: 1. No evidence for pulmonary embolus. 2. Progressive consolidation within the periphery of the right upper lobe. This may represent a pneum onia on the background of the right paramediastinal fibrotic/radiation change. 3. No change in the focal thickening within the mid esophagus and soft tissue thickening surrounding the leo. 4. No significant change in the scattered subcentimeter pulmonary nodules. These are nonspecific but could represent metastatic disease. Electronically signed by: Jorge Escobar M.D. 04/21/2019 2:09 PM
[2019-04-21] MEDS ORDERED: VANCOMYCIN HCL 1,500 MG in SODIUM CHLORIDE 0.9% 500 ML IV ONE (14:35)
[2019-04-21] MEDS ORDERED: SODIUM CHLORIDE 0.9% 1000ML 1,000 ML IV ONE (14:35)
[2019-04-21] MEDS ORDERED: CEFEPIME 2,000 MG/20 ML VIAL IV STA (14:35)
[2019-04-21] MEDS ORDERED: DOXYCYCLINE HYCLATE 100 MG in DEXTROSE 5% 100 ML IV STA (14:35)
[2019-04-21] MEDS ORDERED: VANCOMYCIN CONSULT ACTIVE PRN ×2 (14:35→17:03)
[2019-04-21] MEDS ORDERED: ONDANSETRON INJ 2 MG/ML 2 ML VIAL IV PRN (15:52)
[2019-04-21] MEDS ORDERED: POLYETHYLENE (MIRALAX) 17 GM PACK PO PRN (15:52)
[2019-04-21] MEDS ORDERED: ALUMINUM/MAGNESIUM SUSP 30 ML UDC PO PRN (15:52)
[2019-04-21] MEDS ORDERED: ACETAMINOPHEN 325 MG TAB PO PRN (15:52)
[2019-04-21] MEDS ORDERED: MAGNESIUM HYDROXIDE SUSP 30 ML UDC PO PRN (15:52)
[2019-04-21] MEDS ORDERED: ALBUTEROL HFA 8 GM INHALER INH PRN (17:03)
[2019-04-21] MEDS ORDERED: ALPRAZolam 0.25 MG TABLET PO PRN (17:03)
--- NOTE | 2019-04-21 17:49 | History & Physical Report ---
Date of Service April 21, 2019 Assessment & Plan (1) Pneumonia: - H/O multiple pneumonias and chronic fibrotic changes of lungs - likely related to chemo/radiation; has had bronchoscopies in the past due to mucus plugging; S/P bronchial stent placement/remove in October/November 2018 - CT with progressive consolidation within the periphery of RUL favors possible PNA superimposed on paramediastinal fibrotic/radiatian changes -- Discussed with pulmonology service and reviewed previous imaging and favors likely pneumonia - Given immuncompromised state due to immunotherapy for Lung CA this could be a pneumonia - subjective low grade fevers/chills - currently afebrile and without leukocytosis - Will obtain procalcitonin and trend; does have pulmonary nodules being monitored for possible metastatic disease; also given immunotherapy she would be at risk for pneumonitis - Will continue Vancomycin, Cefepime, and Doxycycline at this time - review of outpatient Pulm visit with initial recommendations given and will implement here as well - Pulmonary toilet/IS/Flutter Valve - Duonebs ERICKA and PRN; Mucinex 1200 mg BID - Methylprednisolone 40 mg IV Q12H Present on Admission?: Yes (2) Lung cancer: - Stage IIIA Squarmous Cell Carcinoma - Follows with Dr. Buck - Completed chemo/radiation and currently on immunotherapy - possibly Durvalumab? - She also follows with Dr. Torres for nodule monitoring and if further bx/thoracic intervention is necessary Present on Admission?: Yes (3) COPD (chronic obstructive pulmonary disease): - Likely a mild exacerbation - treatment as above Present on Admission?: Yes (4) Hypertension: - Diltiazem 120 mg daily, Losartan 50 mg daily, will hold Lasix pending monitoring for fluid retention (5) Hyperlipidemia: - Atorvastatin 20 mg daily Present on Admission?: Yes (6) DVT prophylaxis: Lovenox Disposition: Anticipate return home when clinically improved History of Present Illness Chief Complaint: SOB Primary Care Provider: Ari Renee DO Ms. Arellano is a 73 y/o female with PMHx of Stage IIIA Squamous Cell Lung CA, COPD, Anemia, HTN, HLD, and Depression/Anxiety who presents to the ER c/o SOB and worsening cough. Patient admitted for concern of pneumonia in setting of immunosuppression. She reports she had her influenza vaccine a few weeks ago and developed a fever of 103 and didn't feel well. She states she was then admitted to [facility] and subsequently transferred here and was treated for COPD/interstitial pneumonitis/pneumonia. She state she has been feeling well but over the past week reports increasing SOB, low grade fever/chills, lack of appetite, productive cough of yellow sputum, and rhinorrhea. She continues with immunotherapy (possibly Durvalumab?) but completed chemo/radiation for her lung cancer. She reports having multiple episodes of pneumonias and has required bronchoscopies in the past for mucus plugging. As well, due to RUL bronchus stensosis she has required bronchial stent placement and then ultimate removal by Dr. Torres. Allergies Allergy/AdvReac Type Severity Reaction Status Date / Time hydrochlorothiazide Allergy Intermediate DIZZY, Verified 04/21/19 12:41 "LOOPY" FEELING Home Medications Home Medications Medication Instructions Recorded Confirmed Type Symbicort 1 puff INHALATION BID 03/27/18 04/21/19 History alprazolam 0.25 mg PO BID PRN 03/27/18 04/21/19 History aspirin 81 mg PO QAM 03/27/18 04/21/19 History atorvastatin 20 mg PO QPM 03/27/18 04/21/19 History ipratropium-albuterol 3 ml INHALATION QID 03/27/18 04/21/19 History albuterol sulfate 90 mcg/actuation 2 puffs INH Q6H PRN #18 gm 02/03/19 04/21/19 Rx aerosol inhaler diltiazem HCl 120 mg PO DAILY 04/02/19 04/21/19 History furosemide [Lasix] 40 mg PO DAILY 04/02/19 04/21/19 History lansoprazole [Prevacid] 15 mg PO BID 04/02/19 04/21/19 History losartan [Cozaar] 50 mg PO DAILY 04/02/19 04/21/19 History multivitamin 1 tab PO DAILY 04/02/19 04/21/19 History paroxetine HCl 20 mg PO DAILY 04/02/19 04/21/19 History Past Med/Surg History Medical History Acute respiratory failure with hypoxia ?08/2018 Anemia Anxiety Asthma Cancer of right lung S/P CRYOTHERAPY (2014), S/P CHEMO/RADIATION (COMPLETION ?07/2018) Cellulitis of left lower extremity COPD (chronic obstructive pulmonary disease) (Acute) Depression Dysphagia Encephalopathy Hyperlipidemia (Chronic) Hypertension Irritable bowel disease Lung nodules Mediastinal lymphadenopathy Neutropenic sepsis ? 08/2018 Obesity Pneumonia ?09/2018 S/P ABX Surgical History Difficult intubation LEFT FOOT RECONSTRUCTION: 12/28/16: GLIDESCOPE# 3 ETT 7.0 AT [facility] BRONCHOSCOPY; RUL STENT INSERTION: 10/16/18: "ELECTIVE" GLIDESCOPE #3, ETT 8.0 AT [facility] History of appendectomy History of bronchoscopy MULTIPLE 12/07/13 - MAC #2, Glidescope #3, ETT #8.0, HiLo Oral History of cataract surgery B/L History of colonoscopy 2016 History of difficult intubation 12/28/16 - Glidescope #3, ETT #7, Oral HiLo, Good View with Glidescope 12/07/13 - MAC #2, Glidescope #3, ETT #8.0, HiLo Oral Hx of abdominal hysterectomy 1971 Hx of foot surgery 2014 & 2017 - LEFT X2 12/28/16 - Glidescope #3, ETT #7, Oral HiLo, Good View with Glidescope Hx of repair of rotator cuff 2008 - RIGHT Hx of total shoulder replacement 2014 - LEFT 11/14/15 - MAC #3, ETT #7, Oral HiLo, Grade 1 View S/P pulmonary artery branches stent placement STENT PLACED VIA BRONCHOSCOPY D/T PNEUMONIA OCTOBER 16, 2018 Family History Mother Dementia Father , Passed age 67 of Lung Cancer (Heavy Smoker) Lung cancer Brother , Passed in 68 of Liver Cancer Liver cancer Brother , Passed in 60's of [place] Myocardial infarction Brother COPD (chronic obstructive pulmonary disease) Sister No problems noted. Son No problems noted. Son No problems noted. Son No problems noted. Son No problems noted. Daughter No problems noted. 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 Required: No Beliefs That Will Affect Care: None marital status: / Current Living Situation: Family Current Living Situation Comment: lives with mother and sister current occupational status: retired current occupation: Retired from [employer] Other Information That Helps Us Care for You: No Feels Safe at Home: Yes Safety Concerns: Feels Safe At This Time Smoking Status: Former smoker Tobacco Type: cigarettes ; Smoking End Date: 40 years ago ; Second Hand Exposure: Yes (Not recent ) ; Tobacco Cessation Education Requested by Patient: No Hx Alcohol Use: No Hx Substance Use: No caffeine: Yes (1 pot of coffee/day ) Review of Systems Constitutional: + fever, + chills and + fatigue Eyes: no worsening vision Ear, Nose, Mouth, Throat: + nasal congestion; no ear pain, no sinus pain/pressure, no sore throat, no hoarseness and no dysphagia Respiratory: + cough, + dyspnea, + sputum production and + wheezing Cardiovascular: no chest pain and no edema Gastrointestinal: no abdominal pain, no nausea, no vomiting, no constipation and no diarrhea/loose stools Genitourinary: no dysuria Integumentary: no rash Neurologic: no tingling and no numbness Physical Exam Constitutional: + acute distress (inncreased work of breathing - mild distress) and + frail appearing; not ill appearing Eyes: + anicteric sclerae; no conjunctival abnormality ENMT: Ears: no hearing impairment Throat: uvula midline; no posterior oropharynx abnormality mild cloudiness behind R tympanic membrane without erythema or perforation; L tympanic membrane WNL Neck: trachea midline Respiratory: + labored breathing Auscultation: + diminished lung sounds (bases b/l), + crackles and + wheezes Cardiovascular: Rate/Rhythm: regular rate and regular rhythm Vessels: no JVD Extremities: normal capillary refill; no edema Gastrointestinal (Abdomen): Inspection/Auscultation: normal bowel sounds Percussion/Palpation: abdomen soft; abdomen nontender Musculoskeletal: no cyanosis or clubbing, extremities motor strength 5/5 Skin: no rashes, warm and dry Neurologic: moves all extremities Psychiatric: A+Ox3, euthymic affect Results & Data Vital Signs (Past 12 Hours) Vital Signs Temp Pulse Pulse Resp BP BP Pulse Ox 04/21/19 17:08 37.2 C 122 H 24 152/75 H 95 04/21/19 16:26 115 H 18 133/67 94 04/21/19 12:56 93 04/21/19 11:47 37.1 C 108 H 20 106/63 92 Code Status & VTE Plan Code Status DO NOT RESUSCITATE VTE Prophylaxis Plan VTE Prophylaxis will be ordered: Yes Supervising Physician Co-Signing Physician Notes Patient seen and examined with Rosa PRINCE. I agree with her exam findings, review of systems, assessment and plan. I personally reviewed the lab work and imaging as well. I reviewed the chart, including recent outpatient visits. Patient with increased work of breathing, CT of the chest with evidence of infiltrate in the right upper lobe, given her symptoms highly concerning for pneumonia. She is at high risk of infection given her status of undergoing treatment for lung CA and COPD. - Right upper lobe pneumonia: will treat with broad spectrum antibiotics, admit to medical floor repeat labs in the AM and assess for improvement in symptoms - COPD exacerbation: Solu Medrol 40 q12, Duoneb scheduled and PRN - Acute respiratory failure: minimal hypoxia but certainly with increased work of breathing, due to the above should improve with treatment for full details see the H&P PG Care Time/CCT Total # of Minutes Spent Total Time Spent with Patient: Total time spent is greater than 50% in coordination of care (as documented) at patient's floor/unit and/or counseling patient: (1) Pneumonia Laterality: unspecified laterality Lung location: unspecified part of lung Pneumonia type: due to unspecified organism Qualified Code(s): J18.9 - Pneumonia, unspecified organism
[2019-04-21] MEDS: ENOXAPARIN INJ 40 MG/0.4 ML SYR SQ SCH (17:50)
[2019-04-21] MEDS: ALBUT/IPRATROP 3MG/0.5MG NEB 3 ML VIAL NEB SCH (19:22)
[2019-04-21] MEDS: methylPREDNISolone 40 MG in SYRINGE 0 ML IV SCH (19:24)
--- NOTE | 2019-04-21 20:03 | Pharmacy Report ---
Pharmacy Abx Dose Short Note - Date of Service April 21, 2019 - Assessment & Plan Assessment 73 year old F receiving IV Vancomycin, Cefepime (not a consult), and Doxycycline (not a consult) for treatment of pulm Day # 1 of antimicrobial therapy. * Patient received Vancomycin 1500mg (~21mg/kg) IV x 1 as a loading dose in the ED * Renal function appears to be at baseline. Most recent sCr = 0.85 mg/dL with estimated CrCl ~52 mL/min. Estimated pharmacokinetic parameters: * Ke ~0.047/hr, T1/2 ~14.7 hrs Plan Vancomycin * Initiate Vancomycin 1000mg (~14mg/kg) IV q18 * Goal trough level for pneumonia : 15 to 20 mcg/mL * Trough level ordered for: 04/23/19 @ 1730 (prior to 3rd dose and therefore not reflective of steady state) * MRSA nasal swab ordered to assist with potential de-escalation Pharmacy will continue to follow and will adjust dose/frequency as necessary. Thank you.
[2019-04-21] MEDS: guaiFENesin 600 MG TABCR PO SCH (20:15)
[2019-04-21] MEDS: ATORVASTATIN 20 MG TAB PO SCH (20:15)
--- NOTE | 2019-04-21 21:53 | Emergency Department Note ---
Entered by Yasmeen Kumar acting as a scribe for Konstantin Roger MD History of Present Illness General Chief complaint: Respiratory Problems Stated complaint: SOB, COUGH, FEVER, LUNG CA PATIENT Time Seen by Provider: 04/21/19 12:13 Source: patient History of Present Illness Onset (ago): week(s) 1 Location: chest Pain Consistency: + other (worsening) Maximum Pain Intensity: 3 Quality: + other (respiratory problems) Associated symptoms: + cough, + fever/chills (fever) and + shortness of breath; no nausea/vomiting (nausea) The patient is a 73 year old female who presents to the Emergency Room with complaints of worsening respiratory problems starting a week ago. The patient states that she is currently being treated for lung cancer. She states that she has had one round of radiation and is on her second round of chemo. She reports that she is also on an immunosuppressant therapy. She states that for the past week she has had a worsening cough. She states that yesterday she started to become short of breath so she went to [facility]. She states that they worked her up and sent her home, but last night afterwards, she spiked a fever of 100.3. The patient states that today she went in to see her PCP and they repeated her x-ray since they were unable to get the one from [facility]. She reports the x-ray showed a possible right lung collapse so they sent her here. The patient denies nausea. Home Medications Home Medications Medication Instructions Recorded Confirmed Type Symbicort 1 puff INHALATION BID 03/27/18 04/21/19 History alprazolam 0.25 mg PO BID PRN 03/27/18 04/21/19 History aspirin 81 mg PO QAM 03/27/18 04/21/19 History atorvastatin 20 mg PO QPM 03/27/18 04/21/19 History ipratropium-albuterol 3 ml INHALATION QID 03/27/18 04/21/19 History albuterol sulfate 90 mcg/actuation 2 puffs INH Q6H PRN #18 gm 02/03/19 04/21/19 Rx aerosol inhaler diltiazem HCl 120 mg PO DAILY 04/02/19 04/21/19 History furosemide [Lasix] 40 mg PO DAILY 04/02/19 04/21/19 History lansoprazole [Prevacid] 15 mg PO BID 04/02/19 04/21/19 History losartan [Cozaar] 50 mg PO DAILY 04/02/19 04/21/19 History multivitamin 1 tab PO DAILY 04/02/19 04/21/19 History paroxetine HCl 20 mg PO DAILY 04/02/19 04/21/19 History Allergies Allergy/AdvReac Type Severity Reaction Status Date / Time hydrochlorothiazide Allergy Intermediate DIZZY, Verified 04/21/19 12:41 "LOOPY" FEELING Past Med/Surg History Medical History Acute respiratory failure with hypoxia ?08/2018 Anemia Anxiety Asthma Cancer of right lung S/P CRYOTHERAPY (2014), S/P CHEMO/RADIATION (COMPLETION ?07/2018) Cellulitis of left lower extremity COPD (chronic obstructive pulmonary disease) (Acute) Depression Dysphagia Encephalopathy Hyperlipidemia (Chronic) Hypertension Irritable bowel disease Lung nodules Mediastinal lymphadenopathy Neutropenic sepsis ? 08/2018 Obesity Pneumonia ?09/2018 S/P ABX Surgical History Difficult intubation LEFT FOOT RECONSTRUCTION: 12/28/16: GLIDESCOPE# 3 ETT 7.0 AT [facility] BRONCHOSCOPY; RUL STENT INSERTION: 10/16/18: "ELECTIVE" GLIDESCOPE #3, ETT 8.0 AT [facility] History of appendectomy History of bronchoscopy MULTIPLE 12/07/13 - MAC #2, Glidescope #3, ETT #8.0, HiLo Oral History of cataract surgery B/L History of colonoscopy 2016 History of difficult intubation 12/28/16 - Glidescope #3, ETT #7, Oral HiLo, Good View with Glidescope 12/07/13 - MAC #2, Glidescope #3, ETT #8.0, HiLo Oral Hx of abdominal hysterectomy 1972 Hx of foot surgery 2014 & 2016 - LEFT X2 12/28/16 - Glidescope #3, ETT #7, Oral HiLo, Good View with Glidescope Hx of repair of rotator cuff 2008 - RIGHT Hx of total shoulder replacement 2014 - LEFT 11/14/15 - MAC #3, ETT #7, Oral HiLo, Grade 1 View S/P pulmonary artery branches stent placement STENT PLACED VIA BRONCHOSCOPY D/T PNEUMONIA OCTOBER 16, 2018 Family History Mother Dementia Father , Passed age 67 of Lung Cancer (Heavy Smoker) Lung cancer Brother , Passed in 68 of Liver Cancer Liver cancer Brother , Passed in 60's of [place] Myocardial infarction Brother COPD (chronic obstructive pulmonary disease) Sister No problems noted. Son No problems noted. Son No problems noted. Son No problems noted. Son No problems noted. Daughter No problems noted. Social History Preferred Language: Occitan Communication Ability: Effective Visual Impairment: Limited Hearing Ability: Normal Cook Soup Required: No Beliefs That Will Affect Care: None marital status: / Current Living Situation: Family Current Living Situation Comment: lives with mother and sister current occupational status: retired current occupation: Retired from [employer] Other Information That Helps Us Care for You: No Feels Safe at Home: Yes Safety Concerns: Feels Safe At This Time Smoking Status: Former smoker Tobacco Type: cigarettes ; Smoking End Date: 40 years ago ; Second Hand Exposure: Yes (Not recent ) ; Tobacco Cessation Education Requested by Patient: No Hx Alcohol Use: No Hx Substance Use: No caffeine: Yes (1 pot of coffee/day ) Review of Systems See HPI for pertinent positives & negatives. and A total of 10 systems reviewed and were otherwise negative Physical Exam Vital Signs Vital Signs - 24 hr 04/21/19 11:47 04/21/19 12:56 Temperature 37.1 C Temperature Source Oral Pulse Rate 108 H Respiratory Rate 20 Respiratory Effort / Characteristics Non-Labored Spontaneous Blood Pressure 106/63 Blood Pressure Mean 77 Blood Pressure Position Sitting Pulse Oximetry 92 93 Oxygen Delivery Method Room Air Room Air Sepsis Recent Fever Within 48 Hours No Sepsis New/Unexplained Change in Mental Status No Sepsis Action Taken by Nursing No Action Required GENERAL: Awake, alert, fatigued appearing, in no distress HENT: Normocephalic, atraumatic. Oropharynx with dry mucous membranes and othe rwise unremarkable. EYES: Normal conjunctiva. Sclera non-icteric. NECK: Supple. No nuchal rigidity. FROM. No JVD. RESPIRATORY: Diminished breath sounds of the right lung [place] with scant rhonchi. CARDIAC: Tachycardic rate, normal rhythm. Extremities warm and well perfused. Pulses equal. ABDOMEN: Soft, non-distended. No tenderness to palpation. No rebound or guarding. No masses. RECTAL: Deferred. MUSCULOSKELETAL: Chest examination reveals no tenderness. The back is symmetri umu on inspection without obvious abnormality. There is no CVA tenderness to palpation. No joint edema. LOWER EXTREMITIES: Calves are equal size bilaterally and non-tender. No edema. No discoloration. NEURO: Normal sensorium. No sensory or motor deficits noted. SKIN: No rash or jaundice noted. Course Course 1235: The patient was evaluated in room C10. A complete history and physical exam was performed. 1504: I reevaluated the patient and updated her on her test results. I discussed the treatment plan with her. She verbally agrees and understands. 1509: I [facility] the [facility] He will evaluate the patient for further management. Administered Medications Albuterol (Duoneb) 3 ml NEB QIDR ERICKA Stop: 05/21/19 18:59 Last Admin: 04/21/19 19:22 Dose: 3 ml Documented by: [id number] Atorvastatin Calcium (Lipitor) 20 mg PO QPM ERICKA Stop: 05/21/19 20:59 Last Admin: 04/21/19 20:15 Dose: 20 mg Documented by: [id number] Enoxaparin Sodium (Lovenox) 40 mg SQ Q24H ERICKA Stop: 05/21/19 17:59 Last Admin: 04/21/19 17:50 Dose: 40 mg Documented by: [id number] Guaifenesin (Mucinex) 1,200 mg PO Q12 ERICKA Stop: 05/21/19 20:59 Last Admin: 04/21/19 20:15 Dose: 1,200 mg Documented by: [id number] Cefepime HCl 2,000 mg/ Syringe 20 mls @ 5.5 mls/min IV Q12H ERICKA; Protocol Stop: 04/28/19 01:59 Last Admin: 04/22/19 02:37 Dose: 5.5 mls/min Documented by: [id number] Methylprednisolone 40 mg/ (Syringe) 0.64 mls @ 1.5 mls/min IV Q12H ERICKA Stop: 05/21/19 19:59 Last Admin: 04/21/19 19:24 Dose: 1.5 mls/min Documented by: [id number] Discontinued Medications Sodium Chloride (Nss) 500 mls @ 999 mls/hr IV .Q31M ONE Stop: 04/21/19 13:07 Last Infusion: 04/21/19 14:06 Dose: 0 mls/hr Documented by: [id number] Admin: 04/21/19 12:51 Dose: 999 mls/hr Documented by: [id number] Sodium Chloride (Nss 1000ml) 1,000 mls @ 999 mls/hr IV .Q1H1M ONE Stop: 04/21/19 15:35 Last Infusion: 04/21/19 17:04 Dose: 0 mls/hr Documented by: [id number] Admin: 04/21/19 15:03 Dose: 999 mls/hr Documented by: [id number] Cefepime HCl (Maxipime) 2,000 mg in 20 mls @ 5 mls/min IV NOW STA; Protocol Stop: 04/21/19 14:38 Last Admin: 04/21/19 14:59 Dose: 5 mls/min Documented by: [id number] Vancomycin HCl 1,500 mg/ (Sodium Chloride) 530 mls @ 200 mls/hr IV NOW ONE Stop: 04/21/19 17:13 Last Infusion: 04/21/19 20:14 Dose: 0 mls/hr Documented by: [id number] Admin: 04/21/19 15:41 Dose: 200 mls/hr Documented by: [id number] Doxycycline Hyclate 100 mg/ (Dextrose) 110 mls @ 50 mls/hr IV NOW STA Stop: 04/21/19 16:46 Last Infusion: 04/21/19 18:47 Dose: 0 mls/hr Documented by: [id number] Admin: 04/21/19 15:41 Dose: 50 mls/hr Documented by: [id number] Ioversol (Optiray 320 125ml) 120 ml IV ONCE PRN PRN Reason: Interaction Checking Stop: 04/25/19 13:08 Last Admin: 04/21/19 13:10 Dose: 120 ml Documented by: [id number] Impression & Plan Pneumonia, Shortness of breath, Non-small cell carcinoma of lung, Multiple pulmonary nodules Critical Care Time Critical Care Time: Yes Total Critical Care Time: 35 I have personally spent greater than 35 minutes of critical care time in the direct management of this patient. This includes bedside care, interpretation of diagnostic studies, and testing, discussion with consultants, patient, and family members, and other required patient management activities. This 35 minutes is in excess of all separately billable procedures. Medical Decision Making Differential Diagnosis Differential diagnoses includes but is not limited to pneumonia, bronchitis, COPD/Asthma exacerbation, pneumothorax, pulmonary embolism, congestive heart failure, acute coronary syndrome Medical Records Attestation: I reviewed the patient's medical records. Home Medications Current Medication List: was personally reviewed by me Laboratory Data Attestation: I reviewed the patient's lab results. Result diagrams: 04/21/19 12:15 04/21/19 12:15 Lab Results 04/21/19 04/21/19 04/21/19 Range/Units 12:15 12:15 12:15 WBC 7.03 (4.8-10.8) K/uL RBC 3.18 L (4.2-5.4) M/uL Hgb 9.8 L (12.0-16.0) g/dL Hct 28.7 L (37-47) % MCV 90.3 (80-100) fL MCH 30.8 (25-34) pg MCHC 34.1 (32-36) g/dL RDW Std Deviation 45.8 (36.4-46.3) fL RDW Coeff of Filemon 13.8 (11.5-14.5) % Plt Count 312 (130-400) K/uL MPV 8.9 (7.4-10.4) fL Immature Gran % (Auto) 0.3 % Neut % (Auto) 76.3 % Lymph % (Auto) 10.5 % [place] % (Auto) 11.8 % Eos % (Auto) 1.0 % Baso % (Auto) 0.1 % Immature Gran # (Auto) 0.02 (0.00-0.02) K/uL Neut # (Auto) 5.36 (1.4-6.5) K/uL Lymph # (Auto) 0.74 L (1.2-3.4) K/uL [place] # (Auto) 0.83 H (0.11-0.59) K/uL Eos # (Auto) 0.07 (0-0.5) K/uL Baso # (Auto) 0.01 (0-0.2) K/uL VBG pH (7.36-7.41) VBG pCO2 (38-50) mmHg VBG pO2 mmHg VBG HCO3 mmol/L VBG O2 Saturation % VBG Base Excess mEq/L Barometric Pressure mm/Hg Sodium 131 L (136-145) mmol/L Potassium 3.9 (3.5-5.1) mmol/L Chloride 96 L (98-107) mmol/L Carbon Dioxide 28 (21-32) mmol/L Anion Gap 7.0 (3-11) BUN 16 (7-18) mg/dl Creatinine 0.85 (0.6-1.2) mg/dl Est Cr Clr Drug Dosing Not Reportable Est GFR ( Amer) 78.8 Est GFR (Non-Af Amer) 68.0 BUN/Creatinine Ratio 19.1 (10-20) Glucose 97 (70-99) mg/dl POC Lactic Acid [place] (0.90-1.70) mmol/L Calcium 9.4 (8.5-10.1) mg/dl Phosphorus 3.8 (2.5-4.9) mg/dl Magnesium 2.1 (1.8-2.4) mg/dl Total Bilirubin 0.5 (0.2-1) mg/dl AST 18 (15-37) U/L ALT 31 (12-78) U/L Alkaline Phosphatase 172 H (45-117) U/L Troponin I < 0.015 (0-0.045) ng/ml NT-Pro-B Natriuret Pep 284 (0-900) pg/ml Total Protein 7.5 (6.4-8.2) gm/dl Albumin 3.0 L (3.4-5.0) gm/dl Globulin 4.5 H (2.5-4.0) gm/dl Albumin/Globulin Ratio 0.7 L (0.9-2) Lipase 78 (73-393) U/L 04/21/19 04/21/19 Range/Units 12:22 12:44 WBC (4.8-10.8) K/uL RBC (4.2-5.4) M/uL Hgb (12.0-16.0) g/dL Hct (37-47) % MCV (80-100) fL MCH (25-34) pg MCHC (32-36) g/dL RDW Std Deviation (36.4-46.3) fL RDW Coeff of Filemon (11.5-14.5) % Plt Count (130-400) K/uL MPV (7.4-10.4) fL Immature Gran % (Auto) % Neut % (Auto) % Lymph % (Auto) % [place] % (Auto) % Eos % (Auto) % Baso % (Auto) % Immature Gran # (Auto) (0.00-0.02) K/uL Neut # (Auto) (1.4-6.5) K/uL Lymph # (Auto) (1.2-3.4) K/uL [place] # (Auto) (0.11-0.59) K/uL Eos # (Auto) (0-0.5) K/uL Baso # (Auto) (0-0.2) K/uL VBG pH 7.42 H (7.36-7.41) VBG pCO2 47 (38-50) mmHg VBG pO2 22 mmHg VBG HCO3 30 mmol/L VBG O2 Saturation < 60.0 % VBG Base Excess 4.7 mEq/L Barometric Pressure 732.4 mm/Hg Sodium (136-145) mmol/L Potassium (3.5-5.1) mmol/L Chloride (98-107) mmol/L Carbon Dioxide (21-32) mmol/L Anion Gap (3-11) BUN (7-18) mg/dl Creatinine (0.6-1.2) mg/dl Est Cr Clr Drug Dosing Est GFR ( Amer) Est GFR (Non-Af Amer) BUN/Creatinine Ratio (10-20) Glucose (70-99) mg/dl POC Lactic Acid [place] 0.78 L (0.90-1.70) mmol/L Calcium (8.5-10.1) mg/dl Phosphorus (2.5-4.9) mg/dl Magnesium (1.8-2.4) mg/dl Total Bilirubin (0.2-1) mg/dl AST (15-37) U/L ALT (12-78) U/L Alkaline Phosphatase (45-117) U/L Troponin I (0-0.045) ng/ml NT-Pro-B Natriuret Pep (0-900) pg/ml Total Protein (6.4-8.2) gm/dl Albumin (3.4-5.0) gm/dl Globulin (2.5-4.0) gm/dl Albumin/Globulin Ratio (0.9-2) Lipase (73-393) U/L Imaging Data Radiologist's Impression: Radiology results as stated below per my review and the radiologist's interpretation: CHEST CTA for PULMONARY ARTERIES CT DOSE: 258.31 mGy.cm HISTORY: Shortness of breath. Cough. TECHNIQUE: Multiaxial CT images of the chest were performed following the intravenous administration of contrast to evaluate the pulmonary arteries. Maximal intensity projection images were also obtained. A dose lowering technique was utilized adhering to the principles of ALARA. COMPARISON STUDY: Chest CT 04/02/2019. FINDINGS: Chronic compression deformities at T6 and T7 remain unchanged. Old, healed right-sided rib fractures. No suspicious lytic or blastic osseous lesions. There is a left shoulder prosthesis. Limited views of the upper abdomen demonstrate a normal liver, spleen, and adrenal glands. Normal caliber thoracic aorta with no evidence for dissection. The heart is normal in size. No pleural or pericardial effusions. No filling defects within the pulmonary arteries to suggest pulmonary embolus. Focal thickening of the midesophagus, unchanged. No change in the soft tissue thickening surrounding the leo. Partial opacities of the right upper lobe bronchus which has progressed. Moderate focal narrowing at the takeoff of the right middle lobe bronchus, unchanged. The right paramediastinal consolidation is again noted. This is similar to the prior study and favors post radiation change. There is progressive consolidation within the periphery of the right upper lobe with a few tree-in-bud nodular opacities. This may represent a superimposed pneumonia. This is best seen on image 179. A few scattered subcentimeter pulmonary nodules remain unchanged. Dominant nodule measures 5 mm within the left lower lobe on image 167. IMPRESSION: 1. No evidence for pulmonary embolus. 2. Progressive consolidation within the periphery of the right upper lobe. This may represent a pneumonia on the background of the right paramediastinal fibrotic/radiation change. 3. No change in the focal thickening within the mid esophagus and soft tissue thickening surrounding the leo. 4. No significant change in the scattered subcentimeter pulmonary nodules. These are nonspecific but could represent metastatic disease. Electronically signed by: Jorge Escobar M.D. 04/21/2019 2:09 PM ECG Data Attestation: I personally reviewed and interpreted this ECG as follows: Indication: + SOB/dyspnea Rate (beats per minute): 101 Rhythm: + sinus tachycardia ECG [place]: + Normal ECG ST segments: no ST depression and no ST elevation ECG Findings: + Other (QT-c 446); no PACs and no PVCs Blood Pressure Blood Pressure Findings: Elevated blood pressure Blood Pressure Disposition: further management by hospitalist MDM Narrative The patient is a pleasant 73-year-old woman with a past medical history of NSCLCA/Squamous Cell Carcinoma currently on a monoclonal antibody for treatment after completing courses of chemotherapy and radiation who presents emerged department for worsening shortness of breath with fevers per HPI. On arrival patient is in no acute distress, afebrile stable vital signs. She has diminished breath sounds in the right lung [place]. EKG without overt acute ischemia. Chest x-ray suspicious for pneumonia reviewed from earlier today. CT a of the chest was negative for PE however does demonstrate findings of pneumonia. WBC and platelets wnl. H/H approximate to prior range of values. Lactate negative. Chemistry without acidosis. LFTs and electrolytes unremarkable. Troponin negative. Given the patient's worsening symptoms/imaging in the setting of her immunocompromise status and comorbidities with lung cancer reasonable to admit the patient for further management. Patient is agreeable with this. Case was discussed with Dr. Inman, [facility] [place], who evaluate the patient for admission. Discharge Plan Visit Data *Final* Discharge Date/Time: 04/21/19 16:37 Chief Complaint: Respiratory Problems Stated Complaint: SOB, COUGH, FEVER, LUNG CA PATIENT ED Provider: Konstantin Roger Discharge Problem: Pneumonia, Shortness of breath, Non-small cell carcinoma of lung, Multiple pulmonary nodules Patient Disposition: Being Evaluated by Hospitalist Discharge Instructions Interventions: ED Discharge Assessment Last Done: 04/21/19 16:37 Discharge Problem: Pneumonia Qualifiers: Pneumonia type: due to unspecified organism Laterality: unspecified laterality Lung location: unspecified part of lung Qualified Code(s): J18.9 - Pneumonia, unspecified organism The scribe's documentation has been prepared under my direction and personally reviewed by me in its entirety. I confirm that the note above accurately reflects all work, treatment, procedures, and medical decision making performed by me.
[2019-04-22] MEDS: CEFEPIME 2,000 MG in SYRINGE 7.5 ML IV SCH ×2 (02:37→14:00)
[2019-04-22] MEDS: DOXYCYCLINE HYCLATE 100 MG in DEXTROSE 5% 100 ML IV SCH ×2 (04:58→15:17)
[2019-04-22] MEDS ORDERED: VANCOMYCIN HCL 1,000 MG in SODIUM CHLORIDE 0.9% 250 ML IV SCH (06:00)
[2019-04-22 06:06] LABS: Hematocrit (blood only) 29.6 % (37-47); Hemoglobin 10.4 g/dL (12.0-16.0); Mean Corpuscular Hemoglobin 31.4 pg (25-34); Mean Corpuscular Hgb Conc 35.1 g/dL (32-36); Mean Corpuscular Volume 89.4 fL (80-100); Mean Platelet Volume 9.5 fL (7.4-10.4); Platelet Count 311 K/uL (130-400); RDW Coefficient of Variation 13.3 % (11.5-14.5); RDW Standard Deviation 43.7 fL (36.4-46.3); Red Blood Count 3.31 M/uL (4.2-5.4); White Blood Count 3.73 K/uL (4.8-10.8)
[2019-04-22 06:28] LABS: BUN Creatinine Ratio 21.8 (10-20); Calcium 9.8 mg/dl (8.5-10.1); Creatinine Clr Calc Pharmacy 55.4 ml/min; Est GFR (African American) 86.1; Est GFR (Non-African American) 74.3; Potassium 4.4 mmol/L (3.5-5.1)
[2019-04-22] MEDS: ALBUT/IPRATROP 3MG/0.5MG NEB 3 ML VIAL NEB SCH ×4 (07:03→18:50)
[2019-04-22] MEDS: methylPREDNISolone 40 MG in SYRINGE 0 ML IV SCH ×2 (08:03→19:14)
[2019-04-22] MEDS: LOSARTAN POTASSIUM 50 MG TAB PO SCH (08:04)
[2019-04-22] MEDS: guaiFENesin 600 MG TABCR PO SCH ×2 (08:05→20:35)
[2019-04-22] MEDS: PARoxetine HCl 20 MG TAB PO SCH (08:05)
[2019-04-22] MEDS: dilTIAZem ER 120 MG CAPCR PO SCH (08:05)
--- NOTE | 2019-04-22 18:58 | Hospitalist Progress Note ---
Date of Service April 22, 2019 Assessment & Plan (1) Pneumonia: - H/O multiple pneumonias and chronic fibrotic changes of lungs - likely related to chemo/radiation; has had bronchoscopies in the past due to mucus plugging; S/P bronchial stent placement/remove in November 2018 - CT with progressive consolidation within the periphery of RUL favors possible PNA superimposed on paramediastinal fibrotic/radiatian changes - Given immuncompromised state due to immunotherapy for Lung CA this could be a pneumonia - subjective low grade fevers/chills - currently afebrile and now with leukopenia - Procalcitonin is negative; does have pulmonary nodules being monitored for possible metastatic disease; also given immunotherapy she would be at risk for pneumonitis - Will continue Vancomycin, Cefepime, and Doxycycline at this time - review of outpatient Pulm visit with initial recommendations given and will implement here as well - Pulmonary toilet/IS/Flutter Valve - Duonebs ERICKA and PRN; Mucinex 1200 mg BID - Methylprednisolone 40 mg IV Q12H -will convert to oral prednisone in the morning and taper (2) Lung cancer: - Stage IIIA Squarmous Cell Carcinoma - Follows with Dr. Buck - Completed chemo/radiation and currently on immunotherapy - possibly Durvalumab? - She also follows with Dr. Torres for nodule monitoring and if further bx/thoracic intervention is necessary (3) COPD (chronic obstructive pulmonary disease): - Likely acute exacerbation - acute respiratory failure with hypoxia which is currently resolved- treatment as above (4) Hypertension: - Diltiazem 120 mg daily, Losartan 50 mg daily, will hold Lasix pending monitoring for fluid retention (5) Hyperlipidemia: - Atorvastatin 20 mg daily (6) DVT prophylaxis: Lovenox Disposition: Possible discharge tomorrow Subjective Patient reports feeling well today. Her respiratory effort is drastically improved. She is no longer on supplemental oxygen. She is compliant with flutter valve use and continues to produce mucus on coughing. Continues with wheezing and crackles on examination however improved aeration throughout. She does have leukopenia on labs but remains afebrile. She is eating without difficulty. And denies any new symptoms. Review of Systems Constitutional: no fever and no chills Ear, Nose, Mouth, Throat: + nasal congestion; no sore throat, no hoarseness and no dysphagia Respiratory: + cough, + sputum production and + wheezing; no dyspnea Cardiovascular: no chest pain, no palpitations and no lightheadedness Gastrointestinal: no abdominal pain, no nausea, no vomiting, no constipation and no diarrhea/loose stools Genitourinary: no dysuria Musculoskeletal: no body aches Integumentary: no rash Physical Exam Constitutional: + frail appearing; not ill appearing Eyes: + anicteric sclerae; no conjunctival abnormality ENMT: Ears: no hearing impairment Throat: uvula midline; no posterior oropharynx abnormality Neck: trachea midline Respiratory: normal respiratory effort Auscultation: + diminished lung sounds (bases b/l -overall improved aeration compared to previous examination), + crackles and + wheezes (Expiratory) Cardiovascular: Rate/Rhythm: regular rate and regular rhythm Vessels: no JVD Gastrointestinal (Abdomen): Inspection/Auscultation: normal bowel sounds Percussion/Palpation: abdomen soft; abdomen nontender Musculoskeletal: Head/Neck/Chest: normocephalic and head atraumatic Extremities: no cyanosis Skin: no rashes, warm and dry Neurologic: moves all extremities Psychiatric: A+Ox3, euthymic affect Results & Data Vital Signs (Past 12 Hours) Vital Signs Temp Pulse Resp BP Pulse Ox 04/22/19 15:21 36.6 C 91 H 18 118/66 98 04/22/19 15:02 90 18 94 04/22/19 11:10 100 H 20 94 04/22/19 10:56 36.5 C 102 H 18 121/65 91 04/22/19 07:13 36.5 C 97 H 18 117/67 91 04/22/19 07:03 73 19 96 PG Care Time/CCT Total # of Minutes Spent Total Time Spent with Patient: Total time spent is greater than 50% in coordination of care (as documented) at patient's floor/unit and/or counseling patient: (1) Pneumonia Laterality: unspecified laterality Lung location: unspecified part of lung Pneumonia type: due to unspecified organism Qualified Code(s): J18.9 - Pneumonia, unspecified organism
[2019-04-22] MEDS: ENOXAPARIN INJ 40 MG/0.4 ML SYR SQ SCH (19:12)
[2019-04-22] MEDS: ATORVASTATIN 20 MG TAB PO SCH (20:35)
[2019-04-23] MEDS: CEFEPIME 2,000 MG in SYRINGE 7.5 ML IV SCH (02:03)
[2019-04-23] MEDS: DOXYCYCLINE HYCLATE 100 MG in DEXTROSE 5% 100 ML IV SCH (04:04)
[2019-04-23] MEDS: ALBUT/IPRATROP 3MG/0.5MG NEB 3 ML VIAL NEB SCH ×2 (07:23→10:51)
[2019-04-23 08:07] VITALS: TEMP 98.8
[2019-04-23] MEDS: methylPREDNISolone 40 MG in SYRINGE 0 ML IV SCH (08:12)
[2019-04-23] MEDS ORDERED: BUDESONIDE/FORMOTEROL FUMARATE 160/4.5 60 PUFFS/INHALER INH SCH (09:00)
[2019-04-23] MEDS ORDERED: predniSONE 20 MG TAB PO SCH (09:00)
[2019-04-23] MEDS: LOSARTAN POTASSIUM 50 MG TAB PO SCH (10:33)
[2019-04-23] MEDS: guaiFENesin 600 MG TABCR PO SCH (10:33)
[2019-04-23] MEDS: PARoxetine HCl 20 MG TAB PO SCH (10:33)
[2019-04-23] MEDS: dilTIAZem ER 120 MG CAPCR PO SCH (10:34)
[2019-04-23] MEDS ORDERED: levoFLOXacin 750 MG TAB PO SCH (11:00)
[2019-04-23 11:24] VITALS: O2SAT 94
[2019-04-23] MEDS ORDERED: DOXYCYCLINE HYCLATE 100 MG CAP PO SCH (12:00)
[2019-04-23 12:32] VITALS: BP 118/66; PULSE 102
[2019-04-23] MEDS ORDERED: VANCOMYCIN TROUGH ONE (17:30)
--- NOTE | 2019-04-23 18:38 | Discharge Summary ---
Date of Service April 23, 2019 Admission HPI Per Admitting Provider Ms. Arellano is a 73 y/o female with PMHx of Stage IIIA Squamous Cell Lung CA, COPD, Anemia, HTN, HLD, and Depression/Anxiety who presents to the ER c/o SOB and worsening cough. Patient admitted for concern of pneumonia in setting of immunosuppression. She reports she had her influenza vaccine a few weeks ago and developed a fever of 103 and didn't feel well. She states she was then admitted to [facility] and subsequently transferred here and was treated for COPD/interstitial pneumonitis/pneumonia. She state she has been feeling well but over the past week reports increasing SOB, low grade fever/chills, lack of appetite, productive cough of yellow sputum, and rhinorrhea. She continues with immunotherapy (possibly Durvalumab?) but completed chemo/radiation for her lung cancer. She reports having multiple episodes of pneumonias and has required bronchoscopies in the past for mucus plugging. As well, due to RUL bronchus stensosis she has required bronchial stent placement and then ultimate removal by Dr. Torres. Principal Diagnosis Pneumonia Discharge Exam Constitutional + frail appearing; not ill appearing Eyes + anicteric sclerae; no conjunctival abnormality ENMT Ears: no hearing impairment Throat: uvula midline; no posterior oropharynx abnormality Neck trachea midline Respiratory normal respiratory effort Auscultation: + diminished lung sounds (bases b/l -overall improved aeration compared to previous examination), + crackles and + wheezes (Expiratory) Cardiovascular Rate/Rhythm: regular rate and regular rhythm Vessels: no JVD Extremities: normal capillary refill; no edema Gastrointestinal (Abdomen) Inspection/Auscultation: normal bowel sounds Percussion/Palpation: abdomen soft; abdomen nontender Musculoskeletal no cyanosis or clubbing, extremities motor strength 5/5 Head/Neck/Chest: normocephalic and head atraumatic Extremities: no cyanosis Skin no rashes, warm and dry Neurologic moves all extremities Psychiatric A+Ox3, euthymic affect Discharge Data Allergies Allergy/AdvReac Type Severity Reaction Status Date / Time hydrochlorothiazide Allergy Intermediate DIZZY, Verified 04/21/19 12:41 "LOOPY" FEELING Consultations 04/21/19 14:37 ED Decision to Admit Stat Ordered Studies 04/21/19 12:36 CT angio chest PE protocol Stat Hospital Course (1) Pneumonia: - H/O multiple pneumonias and chronic fibrotic changes of lungs - likely related to chemo/radiation; has had bronchoscopies in the past due to mucus plugging; S/P bronchial stent placement/removal in November 2018 - CT with progressive consolidation within the periphery of RUL favors possible PNA superimposed on paramediastinal fibrotic/radiatian changes - Given immuncompromised state due to immunotherapy for Lung CA this could be a pneumonia - subjective low grade fevers/chills - currently afebrile and now with leukopenia - Procalcitonin is negative; does have pulmonary nodules being monitored for possible metastatic disease; also given immunotherapy she would be at risk for pneumonitis - Will continue Levaquin to complete a 7 day total course - review of outpatient Pulm visit with initial recommendations given and will implement -- Instructions to patient initially included Doxycycline - she did call into the hospital as this was not at her pharmacy and it was discussed that only Levaquin will be used at this time - Pulmonary toilet/IS/Flutter Valve - Duonebs ERICKA and PRN; Mucinex 1200 mg BID - Prednisone 40 mg daily and taper by 10 mg daily until complete - Continue pulmonary F/U (2) Lung cancer: - Stage IIIA Squarmous Cell Carcinoma - Follows with Dr. Buck - Completed chemo/radiation and currently on immunotherapy - possibly Durvalumab? - She also follows with Dr. Torres for nodule monitoring and if further bx/thoracic intervention is necessary (3) COPD (chronic obstructive pulmonary disease): - Likely acute exacerbation - acute respiratory failure with hypoxia which is currently resolved- treatment as above -- Was tachypneic on admission even with minimal desaturations - however respiratory effort normal on discharge (4) Hypertension: - Diltiazem 120 mg daily, Losartan 50 mg daily, and Lasix 40 mg daily (5) Hyperlipidemia: - Atorvastatin 20 mg daily Total Time Total Time Spent Total Time Spent (In Minutes): Greater than 30 minutes Discharge Plan Discharge Items Patient Disposition: Home - Self-Care Reason For Visit: PNEUMONIA/PNEUMONITIS Discharge Diagnosis: Pneumonia Activity: Resume your previous activity Non-emergency contact: Primary Care Provider Call non-emergency contact if: you have any medication questions, your symptoms worsen and you have a fever Follow-up/Referrals: Ari Renee DO [Primary Care Provider] - Diet: Regular Addtl Attending Provider Instructions: Pneumonia: - You were admitted to the hospital for pneumonia and likely a flair of your COPD. - We will continue antibiotics to make sure this is completely covered. You will take Levaquin 750 mg daily x 4 more days. You had a dose today in the hospital so you can start this tomorrow on 04/24. You will also take Doxycycline 100 mg twice a day as well. You had dose this morning so only take one dose this evening on 04/23 then resume twice a day on 04/24. - You will also have a prescription for Mucinex to take twice a day to help thin your mucus to make it easier to cough - Please continue to use your flutter valve to help move the mucus from your lungs. Continue your inhalers and breathing treatments as needed - You will also have a prescription for Prednisone to take to help with wheezing. Take 40 mg on 04/24 then 30 mg on 04/25 then 20 mg on 04/26 then 10 mg on 04/27 then you will be done with this - We will help arrange a follow-up appointment with your lung doctor and family doctor so they can keep an eye on your lungs. - Please talk with your oncologist office to see if they want you to continue your immunotherapy as they sometimes hold this while you are on antibiotics for infection Home Medications: - Please continue your home medications as previously prescribed. We did not make changes to these. Pending Studies at Discharge: No Stand-Alone Forms: My [facility] [employer], Smoking Cessation Medications and DC Order Prescriptions: New levofloxacin 750 mg Tablet 750 mg PO DAILY@1100 Qty: 4 RF: 0 guaifenesin [Mucinex] 600 mg Tablet Extended Release 12hr 1,200 mg PO Q12 5 Days Qty: 20 RF: 0 prednisone 10 mg tablet 10 mg PO DAILY Qty: 10 RF: 0 Continued albuterol sulfate [Ventolin HFA] 90 mcg/actuation HFA aerosol inhaler 2 puffs INH Q6H PRN (Reason: shortness of breath or wheezing) Qty: 18 RF: 3 lansoprazole [Prevacid] 15 mg Capsule,Delayed Release(Dr/Ec) 15 mg PO BID RF: 0 paroxetine HCl 20 mg Tablet 20 mg PO DAILY RF: 0 diltiazem HCl 120 mg Capsule,Extended Release 24 Hr 120 mg PO DAILY RF: 0 multivitamin Tablet 1 tab PO DAILY RF: 0 losartan [Cozaar] 50 mg Tablet 50 mg PO DAILY RF: 0 furosemide [Lasix] 40 mg Tablet 40 mg PO DAILY RF: 0 atorvastatin 20 mg Tablet 20 mg PO QPM RF: 0 ipratropium-albuterol 0.5 mg-3 mg(2.5 mg base)/3 mL Solution For Nebulization 3 ml INHALATION QID RF: 0 aspirin 81 mg Tablet,Delayed Release (Dr/Ec) 81 mg PO QAM RF: 0 alprazolam 0.25 mg Tablet 0.25 mg PO BID PRN (Reason: Anxiety) RF: 0 Symbicort 160-4.5 mcg/actuation Hfa Aerosol Inhaler 1 puff INHALATION BID RF: 0 Discharge Orders: Discharge Order (Routine); Ordered 04/23/19 Ordered By: Rosa Clements Admission Data Admit Date/Time: 04/21/19 15:53 Attending Provider: Louie Inman Admit Provider: Louie Inman Primary Care Provider: Ari Renee Other Providers: Louie Inman Other Interventions: Discharge Summary Assessment (RN) Last Done: 04/23/19 12:30 DC Date/Time DO NOT enter until pt leaves facility: 04/23/19 14:35
== END 2019-04-23 14:35 | disposition home or self-care (01) | DRG 205 ==
LOC: ED 11:46 → 4W 15:53

== ENCOUNTER 2019-11-17 11:18 | Inpatient (IN) ==
[2019-11-17] MEDS ORDERED: methylPREDNISolone 125 MG/2 ML VIAL IV STA (11:49)
[2019-11-17] MEDS ORDERED: ALBUT/IPRATROP 3MG/0.5MG NEB 3 ML VIAL NEB STA (11:49)
--- NOTE | 2019-11-17 12:00 | Emergency Department Note ---
History of Present Illness General Chief complaint: Shortness of Breath/Dyspnea Stated complaint: SOB,COUGH Time Seen by Provider: 11/17/19 11:43 Source: patient Mode of arrival: ambulatory Limitations: no limitations History of Present Illness Provider complaint: Shortness of breath/cough Maximum Pain Intensity: 0 The patient is a 74-year-old female who presents to the ED with a chief comp laint of exertional dyspnea over the past 3 days. She states that is worse than her baseline. She does have a history of cancer primarily in the right lung. She also reports a slight nonproductive cough. She denies any leg swelling. No blood in her stools. Denies any fevers. She has been getting immunomodulators for her lung cancer. She states that she was unable to tolerate chemotherapy. She was diagnosed 6 years ago. Home Medications Home Medications Medication Instructions Recorded Confirmed Type alprazolam 0.25 mg PO Q12 PRN 03/27/18 11/17/19 History aspirin 81 mg PO QAM 03/27/18 11/17/19 History atorvastatin 20 mg PO HS 03/27/18 11/17/19 History lansoprazole [Prevacid] 15 mg PO BID 04/02/19 11/17/19 History losartan [Cozaar] 50 mg PO QAM 04/02/19 11/17/19 History multivitamin 1 tab PO QAM 04/02/19 11/17/19 History paroxetine HCl 20 mg PO QAM 04/02/19 11/17/19 History albuterol sulfate 90 mcg/actuation 2 puffs INH Q6H PRN #18 gm 07/09/19 11/17/19 Rx aerosol inhaler budesonide-formoterol HFA 160 1 puff INHALATION BID #1 gm 07/09/19 11/17/19 Rx mcg-4.5 mcg/actuation aerosol inhaler ipratropium 0.5 mg-albuterol 3 mg 3 ml INHALATION QID PRN #180 ml 11/11/19 11/17/19 Rx (2.5 mg base)/3 mL nebulization soln diltiazem HCl [DILT-XR] 180 mg PO QAM 11/17/19 11/17/19 History prednisone 20 mg PO BID 5 Days #10 tab 11/17/19 Rx Allergies Allergy/AdvReac Type Severity Reaction Status Date / Time hydrochlorothiazide AdvReac Intermediate DIZZY, Verified 11/17/19 12:56 "LOOPY" FEELING Past Med/Surg History Medical History Anemia Anxiety Asthma Cancer of right lung S/P CRYOTHERAPY (2014), S/P CHEMO/RADIATION, IMMUNOTHERAPY Cellulitis of left lower extremity COPD (chronic obstructive pulmonary disease) (Acute) Depression Dysphagia Dyspnea on minimal exertion GERD (gastroesophageal reflux disease) Hyperlipidemia (Chronic) Hypertension Irritable bowel disease Lung nodules Mediastinal lymphadenopathy Obesity Surgical History Difficult intubation LEFT FOOT RECONSTRUCTION: 12/28/16: GLIDESCOPE# 3 ETT 7.0 AT [facility] BRONCHOSCOPY; RUL STENT INSERTION: 10/16/18: "ELECTIVE" GLIDESCOPE #3, ETT 8.0 AT [facility] History of appendectomy History of bronchoscopy MULTIPLE 12/07/13 - MAC #2, Glidescope #3, ETT #8.0, HiLo Oral History of cataract surgery B/L History of colonoscopy 2016 History of difficult intubation 12/28/16 - Glidescope #3, ETT #7, Oral HiLo, Good View with Glidescope 12/07/13 - MAC #2, Glidescope #3, ETT #8.0, HiLo Oral History of esophagogastroduodenoscopy (EGD) W/ REMOVAL OF FOOD BOLUS 05/18/2019 [facility] Hx of abdominal hysterectomy 1972 Hx of foot surgery 2014 & 2017 - LEFT X2 12/28/16 - Glidescope #3, ETT #7, Oral HiLo, Good View with Glidescope Hx of repair of rotator cuff 2008 - RIGHT Hx of total shoulder replacement 2015 - LEFT 11/14/15 - MAC #3, ETT #7, Oral HiLo, Grade 1 View S/P pulmonary artery branches stent placement STENT PLACED VIA BRONCHOSCOPY 11/13/18, s/p removal 11/10/18 Family History Mother Dementia Father , Passed age 67 of Lung Cancer (Heavy Smoker) Lung cancer Brother , Passed in 68 of Liver Cancer Liver cancer Brother , Passed in 60's of [place] Myocardial infarction Brother COPD (chronic obstructive pulmonary disease) Sister No problems noted. Son No problems noted. Son No problems noted. Son No problems noted. Son No problems noted. Daughter No problems noted. Social History Preferred Language: [place]olan Communication Ability: Effective Visual Impairment: No Limitations Hearing Ability: Normal Decorating Equipment Setter Required: No Beliefs That Will Affect Care: None marital status: / Current Living Situation: Family Current Living Situation Comment: lives with mother and sister current occupational status: retired current occupation: Retired from [employer] Safe at Home: Yes Smoking Status: Former smoker Tobacco Type: cigarettes ; Cigarettes Per Day: 1 pack/week ; Second Hand Exposure: Yes (hx) ; Hx Alcohol Use: No Hx Substance Use: No caffeine: Yes (1 pot of coffee/day ) Review of Systems A total of 10 systems reviewed and were otherwise negative Physical Exam Vital Signs Vital Signs - 24 hr 11/17/19 11:25 11/17/19 11:59 11/17/19 12:09 Temperature 36.9 C Temperature Source Oral Pulse Rate 99 H 92 H Pulse Rate [Right Finger] 95 H Pulse Rhythm Regular Respiratory Rate 20 22 18 Respiratory Effort / Characteristics Non-Labored Spontaneous Non-Labored Spontaneous Respiratory Depth Normal Respiratory Pattern Regular Blood Pressure 123/74 Blood Pressure Mean 90 Pulse Oximetry 92 93 93 Oxygen Delivery Method Room Air Room Air Room Air Sepsis Recent Fever Within 48 Hours No Sepsis New/Unexplained Change in Mental Status No Sepsis Action Taken by Nursing No Action Required 11/17/19 12:30 Temperature Temperature Source Pulse Rate 98 H Pulse Rate [Right Finger] Pulse Rhythm Respiratory Rate 28 H Respiratory Effort / Characteristics Respiratory Depth Respiratory Pattern Blood Pressure 154/85 H Blood Pressure Mean 95 Pulse Oximetry 94 Oxygen Delivery Method Room Air Sepsis Recent Fever Within 48 Hours Sepsis New/Unexplained Change in Mental Status Sepsis Action Taken by Nursing CONSTITUTIONAL/VITAL SIGNS: Reviewed / noted above. GENERAL: Non-toxic in appearance. INTEGUMENTARY: Warm, dry, and [place]. HEAD: Normocephalic. EYES: without scleral icterus or trauma. ENT/OROPHARYNX: clear and moist. LYMPHADENOPATHY/NECK: Is supple without lymphadenopathy or meningismus. RESPIRATORY: Lungs reveal expiratory wheezing.. CARDIOVASCULAR: Regular rate and rhythm. GI/ABDOMEN: Soft and nontender. No organomegaly or pulsatile mass. No rebound or guarding. Normal bowel sounds. EXTREMITIES: Warm and well perfused. BACK: No CVA tenderness. NEUROLOGICAL: Intact without focal deficits. PSYCHIATRIC: normal affect. MUSCULOSKELETAL: Normally developed with good muscle tone. TRIAGE NURSING DOCUMENTATION REVIEWED. Course Administered Medications Discontinued Medications Albuterol (Duoneb) 3 ml NEB NOW STA Stop: 11/17/19 11:50 Last Admin: 11/17/19 12:08 Dose: 3 ml Documented by: [id number] Methylprednisolone (Solumedrol) 125 mg IV NOW STA Stop: 11/17/19 11:50 Last Admin: 11/17/19 12:20 Dose: 125 mg Documented by: [id number] Medical Decision Making Differential Diagnosis The differential was considered includes acute myocardial infarction, acute coronary syndrome, myocarditis, pericarditis, pericardial effusions /tamponad, esophageal perforation, pulmonary embolism, pneumonia, pneumothorax, cardiomyopathy, congestive heart, anemia , COPD/asthma exacerbation. Medical Records Attestation: I reviewed the patient's medical records. Home Medications Current Medication List: was personally reviewed by me Laboratory Data Attestation: I reviewed the patient's lab results. Result diagrams: 11/17/19 12:15 11/17/19 12:15 Lab Results 11/17/19 11/17/19 11/17/19 Range/Units 12:15 12:15 12:15 WBC 6.98 (4.8-10.8) K/uL RBC 3.91 L (4.2-5.4) M/uL Hgb 12.2 (12.0-16.0) g/dL Hct 36.7 L (37-47) % MCV 93.9 (80-100) fL MCH 31.2 (25-34) pg MCHC 33.2 (32-36) g/dL RDW Std Deviation 43.5 (36.4-46.3) fL RDW Coeff of [place] 12.8 (11.5-14.5) % Plt Count 241 (130-400) K/uL MPV 9.2 (7.4-10.4) fL Immature Gran % (Auto) 0.3 % Neut % (Auto) 69.1 % Lymph % (Auto) 12.0 % [place] % (Auto) 10.9 % Eos % (Auto) 7.4 % Baso % (Auto) 0.3 % Immature Gran # (Auto) 0.02 (0.00-0.02) K/uL Neut # (Auto) 4.82 (1.4-6.5) K/uL Lymph # (Auto) 0.84 L (1.2-3.4) K/uL [place] # (Auto) 0.76 H (0.11-0.59) K/uL Eos # (Auto) 0.52 H (0-0.5) K/uL Baso # (Auto) 0.02 (0-0.2) K/uL PT 11.1 (9.0-12.0) Seconds INR 1.1 (0.9-1.1) APTT 26.5 (21.0-31.0) Seconds PTT Ratio 0.9 Sodium 132 L (136-145) mmol/L Potassium 4.2 (3.5-5.1) mmol/L Chloride 97 L (98-107) mmol/L Carbon Dioxide 30 (21-32) mmol/L Anion Gap 4.0 (3-11) BUN 13 (7-18) mg/dl Creatinine 0.85 (0.6-1.2) mg/dl Est Cr Clr Drug Dosing 55.3 ml/min Est GFR ( Amer) 78.2 Est GFR (Non-Af Amer) 67.5 BUN/Creatinine Ratio 15.7 (10-20) Glucose 117 H (70-99) mg/dl Calcium 9.2 (8.5-10.1) mg/dl Total Bilirubin 0.5 (0.2-1) mg/dl AST 11 L (15-37) U/L ALT 21 (12-78) U/L Alkaline Phosphatase 85 (45-117) U/L Troponin I < 0.015 (0-0.045) ng/ml Total Protein 6.8 (6.4-8.2) gm/dl Albumin 3.3 L (3.4-5.0) gm/dl Globulin 3.5 (2.5-4.0) gm/dl Albumin/Globulin Ratio 0.9 (0.9-2) Imaging Data Radiologist's Impression: Chest x-ray: IMPRESSION: 1. No acute process. 2. Unchanged right perihilar opacities suggestive of postradiation fibrosis. 3. Pulmonary metastasis redemonstrated. ECG Data Attestation: I personally reviewed and interpreted this ECG as follows: Indication: + SOB/dyspnea Rate (beats per minute): 97 Rhythm: + normal sinus ECG ST segments: no ST elevation ECG Findings: no PVCs Blood Pressure Blood Pressure Findings: Normal blood pressure MDM Narrative The patient is a 74-year-old female who presents to the ED with a chief complaint of exertional dyspnea over the past 3 days. She states that is worse than her baseline. She does have a history of cancer primarily in the right lung. She also reports a slight nonproductive cough. She denies any leg swelling. No blood in her stools. Denies any fevers. She has been getting immunomodulators for her lung cancer. She states that she was unable to kimi erate chemotherapy. She was diagnosed 6 years ago. The patient's exam reveals normal vital signs. She is 92% on room air. She has expiratory wheezing bilaterally. She does not appear to be in any distress while sitting in the bed. The patient CBC and chemistry panel was normal. A troponin was negative. Chest x-ray was negative for acute disease. EKG shows a normal sinus rhythm without ischemic changes. The patient was given a DuoNeb treatment. She was also given IV Solu-Medrol. On reassessment, the breathing seems to be improved. She is feeling a little better. She is felt to be stable for discharge. Her symptoms are most consistent with a COPD exacerbation. She does have a n ebulizer at home. She will use this and she will be discharged on prednisone. She has a follow-up with her PCP in the near future for recheck or return here for worsening. Impression & Plan COPD (chronic obstructive pulmonary disease) Discharge Plan Visit Data Chief Complaint: Shortness of Breath/Dyspnea Stated Complaint: SOB,COUGH ED Provider: Eran Morgan Discharge Problem: COPD (chronic obstructive pulmonary disease) Patient Disposition: Home - Self-Care Condition: Good Discharge Instructions Activity Restrictions/Additional Instructions: Prednisone as prescribed. Use your albuterol inhaler at home every 4 hours as needed for wheezing or shortness of breath. Follow-up with your doctor for further care and evaluation in 1-2 days if symptoms persist. Return to the emergency department for worsening or new symptoms or any concerns. You have been examined and treated today on an emergency basis only. This is not a substitute for, or an effort to provide, complete comprehensive medical care. It is impossible to recognize and treat all injuries or illnesses in a single emergency department visit. It is therefore important that you follow up closely with your doctor. Call as soon as possible for an appointment. Forms Stand Alone Forms: My [facility], [facility] Emergency Department, Important Visit Information Prescriptions Prescriptions: New prednisone 20 mg tablet 20 mg PO BID 5 Days Qty: 10 RF: 0 No Action ipratropium-albuterol 0.5 mg-3 mg(2.5 mg base)/3 mL solution for nebulization 3 ml INHALATION QID PRN (Reason: shortness of breath or wheezing) Qty: 180 RF: 1 albuterol sulfate [Ventolin HFA] 90 mcg/actuation HFA aerosol inhaler 2 puffs INH Q6H PRN (Reason: shortness of breath or wheezing) Qty: 18 RF: 3 Symbicort 160-4.5 mcg/actuation HFA aerosol inhaler 1 puff INHALATION BID Qty: 1 RF: 0 lansoprazole [Prevacid] 15 mg Capsule,Delayed Release(Dr/Ec) 15 mg PO BID RF: 0 paroxetine HCl 20 mg Tablet 20 mg PO QAM RF: 0 multivitamin Tablet 1 tab PO QAM RF: 0 losartan [Cozaar] 50 mg Tablet 50 mg PO QAM RF: 0 diltiazem HCl [DILT-XR] 180 mg capsule,ext.rel 24h degradable 180 mg PO QAM RF: 0 atorvastatin 20 mg Tablet 20 mg PO HS RF: 0 aspirin 81 mg Tablet,Delayed Release (Dr/Ec) 81 mg PO QAM RF: 0 alprazolam 0.25 mg Tablet 0.25 mg PO Q12 PRN (Reason: Anxiety) RF: 0 Referrals Referrals: Ari Renee DO [Primary Care Provider] - Discharge Problem: COPD (chronic obstructive pulmonary disease) Qualifiers: COPD type: COPD with acute exacerbation Qualified Code(s): J44.1 - Chronic obstructive pulmonary disease with (acute) exacerbation
--- NOTE | 2019-11-17 12:10 | XRay Report ---
XR chest 1V portable HISTORY: 74 years-old Female Dyspnea acute shortness of breath COMPARISON: Chest CT 10/15/2019, chest radiograph 05/29/2019 TECHNIQUE: Portable AP view of the chest FINDINGS: Unchanged right perihilar opacity with linear density of the right midlung. Superior traction of the right hilum. 9 mm pulmonary nodule of the superior segment left lower lobe redemonstrated. The additi onal bilateral pulmonary nodules as previously described are better seen on comparison chest CT. Card iac silhouette is within normal limits. Calcified plaque of the thoracic arch. No pneumothorax, pleur al effusion or overt pulmonary edema. Degenerative changes of the spine and right shoulder. Reverse l eft shoulder total joint arthroplasty. IMPRESSION: 1. No acute process. 2. Unchanged right perihilar opacities suggestive of postradiation fibrosis. 3. Pulmonary metastasis redemonstrated. ACT 112: Negative or not required by law. The above report was generated using voice recognition software. It may contain grammatical, syntax o r spelling errors. Electronically signed by: Puneet Murguia M.D. 11/17/2019 12:09 PM
[2019-11-17 12:24] LABS: Basophils # (auto) 0.02 K/uL (0-0.2); Basophils % (auto) 0.3 %; Eosinophils # (auto) 0.52 K/uL (0-0.5); Eosinophils % (auto) 7.4 %; Hematocrit (blood only) 36.7 % (37-47); Hemoglobin 12.2 g/dL (12.0-16.0); Immature Granulocytes # (auto) 0.02 K/uL (0.00-0.02); Immature Granulocytes % (auto) 0.3 %; Lymphocytes # (auto) 0.84 K/uL (1.2-3.4); Mean Corpuscular Hemoglobin 31.2 pg (25-34); Mean Corpuscular Hgb Conc 33.2 g/dL (32-36); Mean Corpuscular Volume 93.9 fL (80-100); Mean Platelet Volume 9.2 fL (7.4-10.4); Monocytes # (auto) 0.76 K/uL (0.11-0.59); Monocytes % (auto) 10.9 %; Neutrophils # (auto) 4.82 K/uL (1.4-6.5); Neutrophils % (auto) 69.1 %; Platelet Count 241 K/uL (130-400); RDW Coefficient of Variation 12.8 % (11.5-14.5); RDW Standard Deviation 43.5 fL (36.4-46.3); Red Blood Count 3.91 M/uL (4.2-5.4); White Blood Count 6.98 K/uL (4.8-10.8)
[2019-11-17 12:34] LABS: INR 1.1 (0.9-1.1); Partial Thromboplastin Ratio 0.9; Partial Thromboplastin Time 26.5 Seconds (21.0-31.0); Prothrombin Time 11.1 Seconds (9.0-12.0)
[2019-11-17 12:40] LABS: Alanine Aminotransferase 21 U/L (12-78); Albumin Level 3.3 gm/dl (3.4-5.0); Aspartate Aminotransferase 11 U/L (15-37); BUN Creatinine Ratio 15.7 (10-20); Blood Urea Nitrogen 13 mg/dl (7-18); Calcium 9.2 mg/dl (8.5-10.1); Carbon Dioxide 30 mmol/L (21-32); Chloride 97 mmol/L (98-107); Creatinine Clr Calc Pharmacy 55.3 ml/min; Est GFR (African American) 78.2; Est GFR (Non-African American) 67.5; Glucose 117 mg/dl (70-99); Potassium 4.2 mmol/L (3.5-5.1); Sodium 132 mmol/L (136-145)
[2019-11-17 12:45] LABS: Albumin Globulin Ratio 0.9 (0.9-2); Alkaline Phosphatase 85 U/L (45-117); Bilirubin,Total 0.5 mg/dl (0.2-1); Globulin 3.5 gm/dl (2.5-4.0); Total Protein 6.8 gm/dl (6.4-8.2); Troponin I < 0.015 ng/ml (0-0.045)
--- NOTE | 2019-11-17 15:46 | History & Physical Report ---
Date of Service November 17, 2019 Assessment & Plan (1) COPD exacerbation: Duonebs Q4R +Q2H PRN COntinue solu-medrol 40mg BID Patient declines axithromycin (it just doesn't work) O2 to maintain sats > 90% Will need 6 minute walk prior to discharge (2) Tachycardia: Concerning potentially for PE with current lung cancer but given similar tachycardia with prior episode in July with negative CT for PE at that time will defer repeating this scan at present. Shortness of breath improving with treatment for COPD exacerbation therefore do not suspect PE is contributory towards this currently but if not improving would consider repeating CT for PE. (3) SOB (shortness of breath): as above. If not resolving with COPD exacerbation treatment consider pulm consult. (4) Non-small cell carcinoma of lung: Complicated history including multiple ablative therapies, chemoradiation, currently on durvolumab. Best summed up in Dr Orellana's note in September. No significant change in CXR to suggest need for reimaging of this prior to her routine follow up. (5) Hypertension: Continue diltiazem, losartan home dosing (6) Depression: Continue paroxetine (7) Esophageal reflux: Continue lansoprazole (8) HLD (hyperlipidemia): Continue atorvastatin (9) Chronic hyponatremia: Appears stable. Monitor with BMP (10) DVT prophylaxis: Lovenox 40mg SQ daily Admission and Anticipated Discharge Date Admission Date: 11/17/2019 History of Present Illness Chief Complaint: Shortness of breath on exertion Primary Care Provider: Ari Renee DO Linsey Ron is a 74 year old female with COPD, lung squamous cell carcinoma, s/p bronchial stent 10/2018 who presents to the ER with ongoing shortness of breath on exertion with wheezing after recently stopping a steroid course given by her outpatient fish housekeeper which stopped 5 days previously. Her shortness of breath has slowly been getting worse since Saturday. She does have follow up with her fish housekeeper tomorrow and improved in the ER with duonebs and solu- medrol but after discussion with her ER physician and sister she feels she would not be able to manage at home with her current shortness of breath on exertion. She denies any postnasal drip, nasal congestion, sinus pain, chest pain. No calf pain. She denies any fevers, chills, cough, loss of taste or smell. She denies any known COVID-19 exposure. Allergies Allergy/AdvReac Type Severity Reaction Status Date / Time hydrochlorothiazide AdvReac Intermediate DIZZY, Verified 11/17/19 12:56 "LOOPY" FEELING Home Medications Home Medications Medication Instructions Recorded Confirmed Type alprazolam 0.25 mg PO Q12 PRN 03/27/18 11/17/19 History aspirin 81 mg PO QAM 03/27/18 11/17/19 History atorvastatin 20 mg PO HS 03/27/18 11/17/19 History lansoprazole [Prevacid] 15 mg PO BID 04/02/19 11/17/19 History losartan [Cozaar] 50 mg PO QAM 04/02/19 11/17/19 History multivitamin 1 tab PO QAM 04/02/19 11/17/19 History paroxetine HCl 20 mg PO QAM 04/02/19 11/17/19 History albuterol sulfate 90 mcg/actuation 2 puffs INH Q6H PRN #18 gm 07/09/19 11/17/19 Rx aerosol inhaler budesonide-formoterol HFA 160 1 puff INHALATION BID #1 gm 07/09/19 11/17/19 Rx mcg-4.5 mcg/actuation aerosol inhaler ipratropium 0.5 mg-albuterol 3 mg 3 ml INHALATION QID PRN #180 ml 11/11/19 11/17/19 Rx (2.5 mg base)/3 mL nebulization soln diltiazem HCl [DILT-XR] 180 mg PO QAM 11/17/19 11/17/19 History prednisone 20 mg PO BID 5 Days #10 tab 11/17/19 Rx Past Med/Surg History Medical History (Updated 11/18/19 @ 08:05 by Serge Lee MD) Acute respiratory failure with hypoxia ?08/2018 Anxiety Asthma Cancer of right lung S/P CRYOTHERAPY (2015), S/P CHEMO/RADIATION, IMMUNOTHERAPY Cellulitis of left lower extremity (Resolved) Chronic hyponatremia COPD (chronic obstructive pulmonary disease) (Acute) Depression Dysphagia (Inactive) Dyspnea on minimal exertion GERD (gastroesophageal reflux disease) Hemoptysis (Inactive) Hyperlipidemia (Chronic) Hypertension Hypomagnesemia (Inactive) Hypoxia (Inactive) Irritable bowel disease Lung nodules Mediastinal lymphadenopathy Multiple fracture Neutropenia (Inactive) Neutropenic sepsis ? 08/2018 Obesity Pancytopenia Pneumonia ?09/2018 S/P ABX Sepsis (Inactive) Surgical History Difficult intubation LEFT FOOT RECONSTRUCTION: 12/28/16: GLIDESCOPE# 3 ETT 7.0 AT [facility] BRONCHOSCOPY; RUL STENT INSERTION: 10/16/18: "ELECTIVE" GLIDESCOPE #3, ETT 8.0 AT [facility] History of appendectomy History of bronchoscopy MULTIPLE 12/07/13 - MAC #2, Glidescope #3, ETT #8.0, HiLo Oral History of cataract surgery B/L History of colonoscopy 2017 History of difficult intubation 12/28/16 - Glidescope #3, ETT #7, Oral HiLo, Good View with Glidescope 12/07/13 - MAC #2, Glidescope #3, ETT #8.0, HiLo Oral History of esophagogastroduodenoscopy (EGD) W/ REMOVAL OF FOOD BOLUS 05/18/2019 [facility] Hx of abdominal hysterectomy 1972 Hx of foot surgery 2014 & 2016 - LEFT X2 12/28/16 - Glidescope #3, ETT #7, Oral HiLo, Good View with Glidescope Hx of repair of rotator cuff 2008 - RIGHT Hx of total shoulder replacement 2014 - LEFT 11/14/15 - MAC #3, ETT #7, Oral HiLo, Grade 1 View S/P pulmonary artery branches stent placement STENT PLACED VIA BRONCHOSCOPY 11/13/18, s/p removal 11/10/18 Family History Mother Dementia Father , Passed age 67 of Lung Cancer (Heavy Smoker) Lung cancer Brother , Passed in 68 of Liver Cancer Liver cancer Brother , Passed in 60's of [place] Myocardial infarction Brother COPD (chronic obstructive pulmonary disease) Sister No problems noted. Son No problems noted. Son No problems noted. Son No problems noted. Son No problems noted. Daughter No problems noted. 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 Beliefs That Will Affect Care: None marital status: / Current Living Situation: Family Current Living Situation Comment: lives with mother and sister current occupational status: retired current occupation: Retired from [employer] Other Information That Helps Us Care for You: No Feels Safe at Home: Yes Safety Concerns: Feels Safe At This Time Smoking Status: Former smoker Tobacco Type: cigarettes ; Cigarettes Per Day: 1 pack/week ; Second Hand Exposure: Yes (hx) ; Hx Alcohol Use: No Hx Substance Use: No caffeine: Yes (1 pot of coffee/day ) Review of Systems Review of Systems: All systems reviewed & are unremarkable except as noted in HPI & below Physical Exam Constitutional: WD/WN, vitals as above Eyes: PERRL, conjunctivae normal, anicteric sclerae ENMT: external ear and nose normal, oropharynx normal Neck: trachea midline, no thyromegaly Respiratory: normal respiratory effort; no respiratory distress Auscultation: + diminished lung sounds (throughout, poor air movement, equal b/l) and + wheezes (expiratory); no crackles Cardiovascular: Rate/Rhythm: regular rhythm and + tachycardic Heart Sounds: no murmur Extremities: normal capillary refill; no calf tenderness and no pedal edema Gastrointestinal (Abdomen): normal bowel sounds, soft, nontender, no hepatosplenomegaly Musculoskeletal: no cyanosis or clubbing, extremities motor strength 5/5 Skin: no rashes, warm and dry Neurologic: moves all extremities and awake; no focal motor deficits and not confused Psychiatric: A+Ox3, euthymic affect Genitourinary: no CVA tenderness Lymphatic: no cervical or axillary lymphadenopathy Results & Data Results & Data ([facility]) Vital Signs (Past 12 Hours) Vital Signs Temp Pulse Pulse Resp BP BP Pulse Ox 11/17/19 15:19 103 H 18 148/85 H 91 11/17/19 14:03 97 H 26 H 149/93 H 91 11/17/19 13:00 91 H 24 158/87 H 92 11/17/19 12:30 98 H 28 H 154/85 H 94 11/17/19 12:09 95 H 18 93 11/17/19 11:59 92 H 22 93 11/17/19 11:25 36.9 C 99 H 20 123/74 92 Diagnostic Findings XR chest 1V portable IMPRESSION: 1. No acute process. 2. Unchanged right perihilar opacities suggestive of postradiation fibrosis. 3. Pulmonary metastasis redemonstrated. ECG Indication: SOB/dyspnea Rate (beats per minute): 97 Rhythm: normal sinus Findings: no acute ischemic change Comparison ECG Date: from (08/08/2019) Change: no significant change (PVCs no longer present) Code Status & VTE Plan Code Status DNR/DNI as discussed with the patient VTE Prophylaxis Plan VTE Prophylaxis will be ordered: Yes PG Care Time/CCT Total # of Minutes Spent Total Time Spent with Patient: Total time spent is greater than 50% in coordination of care (as documented) at patient's floor/unit and/or counseling patient: Coding Level of Care Code 05472 OBS Care - Level 3 Diagnoses COPD exacerbation J44.1 Tachycardia R00.0 SOB (shortness of breath) R06.02 Non-small cell carcinoma of lung C34.90 Hypertension I10 Depression F32.9 Esophageal reflux K21.9 HLD (hyperlipidemia) E78.5 Chronic hyponatremia E87.1 DVT prophylaxis Z29.9
[2019-11-17] MEDS ORDERED: MAGNESIUM HYDROXIDE SUSP 30 ML UDC PO PRN (18:02)
[2019-11-17] MEDS ORDERED: ONDANSETRON INJ 2 MG/ML 2 ML VIAL IV PRN (18:02)
[2019-11-17] MEDS ORDERED: ALUMINUM/MAGNESIUM SUSP 30 ML UDC PO PRN (18:02)
[2019-11-17] MEDS ORDERED: ALPRAZolam 0.25 MG TABLET PO PRN (18:02)
[2019-11-17] MEDS ORDERED: POLYETHYLENE (MIRALAX) 17 GM PACK PO PRN (18:02)
[2019-11-17] MEDS ORDERED: ACETAMINOPHEN 325 MG TAB PO PRN (18:02)
[2019-11-17] MEDS: ALBUT/IPRATROP 3MG/0.5MG NEB 3 ML VIAL NEB SCH ×2 (18:30→23:17)
[2019-11-17] MEDS: ATORVASTATIN 20 MG TAB PO SCH (20:24)
[2019-11-17] MEDS: methylPREDNISolone 40 MG in SYRINGE 0 ML IV SCH (20:24)
[2019-11-17] MEDS: PANTOprazole 40 MG TAB PO SCH (20:24)
[2019-11-17] MEDS: ENOXAPARIN INJ 40 MG/0.4 ML SYR SQ SCH (21:33)
[2019-11-17] MEDS: FLUTICASONE/VILANTEROL 200/25MCG 14 PUFFS/INHALER INH SCH (21:33)
--- NOTE | 2019-11-17 21:55 | Electrocardiogram Report ---
Test Reason : Blood Pressure : / mmHG Vent. Rate : 097 BPM Atrial Rate : 097 BPM P-R Int : 182 ms QRS Dur : 070 ms QT Int : 362 ms P-R-T Axes : 059 -15 050 degrees QTc Int : 459 ms Poor data quality, interpretation may be adversely affected Normal sinus rhythm Cannot rule out Anterior infarct (cited on or before 10-OCT-2018) Abnormal ECG When compared with ECG of 08-AUG-2019 11:56, Premature ventricular complexes are no longer Present Confirmed by Johan Reed ([id number]) on 11/17/2019 9:54:49 PM Referred By: REFERRED SELF Confirmed By:Johan Reed
[2019-11-18] MEDS: ALBUT/IPRATROP 3MG/0.5MG NEB 3 ML VIAL NEB SCH ×6 (03:26→23:28)
[2019-11-18 07:19] LABS: Hematocrit (blood only) 36.4 % (37-47); Hemoglobin 12.6 g/dL (12.0-16.0); Mean Corpuscular Hemoglobin 31.7 pg (25-34); Mean Corpuscular Hgb Conc 34.6 g/dL (32-36); Mean Corpuscular Volume 91.7 fL (80-100); Mean Platelet Volume 9.5 fL (7.4-10.4); Platelet Count 249 K/uL (130-400); RDW Coefficient of Variation 12.5 % (11.5-14.5); RDW Standard Deviation 41.9 fL (36.4-46.3); Red Blood Count 3.97 M/uL (4.2-5.4); White Blood Count 5.07 K/uL (4.8-10.8)
[2019-11-18 07:46] LABS: BUN Creatinine Ratio 16.4 (10-20); Calcium 9.3 mg/dl (8.5-10.1); Creatinine Clr Calc Pharmacy 46.3 ml/min; Est GFR (African American) 63.5; Est GFR (Non-African American) 54.8; Potassium 3.8 mmol/L (3.5-5.1)
[2019-11-18] MEDS: methylPREDNISolone 40 MG in SYRINGE 0 ML IV SCH ×2 (08:11→20:12)
[2019-11-18] MEDS: LOSARTAN POTASSIUM 50 MG TAB PO SCH (08:12)
[2019-11-18] MEDS: MULTIVITAMIN TAB PO SCH (08:12)
[2019-11-18] MEDS: PANTOprazole 40 MG TAB PO SCH ×2 (08:13→20:10)
[2019-11-18] MEDS: PARoxetine HCL 20 MG TAB PO SCH (08:13)
[2019-11-18] MEDS: ASPIRIN 81 MG ECTAB PO SCH (08:13)
[2019-11-18] MEDS ORDERED: ARTIFICIAL TEARS OP PRN (11:56)
[2019-11-18] MEDS ORDERED: TRAMADOL HCL 50 MG TABLET PO PRN (11:56)
--- NOTE | 2019-11-18 12:00 | Hospitalist Progress Note ---
Date of Service November 18, 2019 Assessment & Plan (1) COPD exacerbation: just completed 10-day course of augmentin. CTA chest today w/o pneumonia or PEs. would not repeat a course of oral abx. cont IV steroids - no change today. add flutter valve. mucinex. scheduled nebs. pulmonary toilet. if she fails to improve next 48 hours then consult her primary internet sales representative. of note - no COVID-19 risk factors. defer on testing. (2) Non-small cell carcinoma of lung: Complicated history including multiple ablative therapies, chemoradiation, currently on durvolumab. CTA today w/o changes in nodules relative to early October 2019. No PEs either. 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 stable (8) Itchy eyes: this may be dry eyes or allergy artificial tears prn nasacort nasal spray daily allergra BID re-eval tomorrow no evidence of infectious conjunctivitis on exam (9) Headache: CT head w/o mets or sinus infection no acute findings suspect related to illness meds as listed above follow if it persists - MRI brain as CT can miss mets at times (10) DVT prophylaxis: Lovenox 40mg SQ daily updated daughter 11/17 by phone Admission and Anticipated Discharge Date Admission Date: November 17, 2019 Subjective patient c/o itchy eyes b/l with "some goop" denies painful eyes or blurry vision c/o nasal congestion c/o dyspnea on exertion w/ walking in room ongoing cough - but no sputum production no chest pain has been sick for several weeks no sick contacts no travel Review of Systems Constitutional: no fever and no chills Respiratory: + cough and + chest congestion; no hemoptysis Cardiovascular: no chest pain Gastrointestinal: no abdominal pain Neurologic: + headache(s) (frontal, started a few days ago; does not radiate; does not get frequent aldrich's) Physical Exam Constitutional: no acute distress and no altered mental status Eyes: + anicteric sclerae and PERRL; no conjunctival abnormality and no scleral abnormality ENMT: external ear and nose normal, oropharynx normal Respiratory: no respiratory distress Auscultation: + wheezes (extensive b/l ); no crackles Cardiovascular: Rate/Rhythm: regular rhythm and + tachycardic Heart Sounds: normal S1 and normal S2 Vessels: no JVD, + posterior tibial pulses abnormal and + dorsalis pedis pulses abnormal Extremities: no edema Gastrointestinal (Abdomen): normal bowel sounds, soft, nontender, no hepatosplenomegaly Neurologic: Motor/Sensory: + tremor Psychiatric: Orientation: alert and oriented x 3 Affect: + anxious affect Results & Data Results & Data ([facility]) Vital Signs (Past 12 Hours) Vital Signs Temp Pulse Resp BP Pulse Ox 11/18/19 11:14 101 H 19 93 11/18/19 07:09 36.6 C 104 H 20 133/81 94 11/18/19 07:07 110 H 20 96 11/18/19 03:27 97 H 16 95 Laboratory Results Laboratory Results - last 24 hr 11/17/19 11/17/19 11/17/19 12:15 12:15 12:15 WBC 6.98 RBC 3.91 L Hgb 12.2 Hct 36.7 L MCV 93.9 MCH 31.2 MCHC 33.2 RDW Std Deviation 43.5 RDW Coeff of Filemon 12.8 Plt Count 241 MPV 9.2 Immature Gran % (Auto) 0.3 Neut % (Auto) 69.1 Lymph % (Auto) 12.0 [place] % (Auto) 10.9 Eos % (Auto) 7.4 Baso % (Auto) 0.3 Immature Gran # (Auto) 0.02 Neut # (Auto) 4.82 Lymph # (Auto) 0.84 L [place] # (Auto) 0.76 H Eos # (Auto) 0.52 H Baso # (Auto) 0.02 PT 11.1 INR 1.1 APTT 26.5 PTT Ratio 0.9 Sodium 132 L Potassium 4.2 Chloride 97 L Carbon Dioxide 30 Anion Gap 4.0 BUN 13 Creatinine 0.85 Est Cr Clr Drug Dosing 55.3 Est GFR ( Amer) 78.2 Est GFR (Non-Af Amer) 67.5 BUN/Creatinine Ratio 15.7 Glucose 117 H Calcium 9.2 Total Bilirubin 0.5 AST 11 L ALT 21 Alkaline Phosphatase 85 Troponin I < 0.015 Total Protein 6.8 Albumin 3.3 L Globulin 3.5 Albumin/Globulin Ratio 0.9 11/18/19 11/18/19 06:28 06:28 WBC 5.07 RBC 3.97 L Hgb 12.6 Hct 36.4 L MCV 91.7 MCH 31.7 MCHC 34.6 RDW Std Deviation 41.9 RDW Coeff of Filemon 12.5 Plt Count 249 MPV 9.5 Immature Gran % (Auto) Neut % (Auto) Lymph % (Auto) [place] % (Auto) Eos % (Auto) Baso % (Auto) Immature Gran # (Auto) Neut # (Auto) Lymph # (Auto) [place] # (Auto) Eos # (Auto) Baso # (Auto) PT INR APTT PTT Ratio Sodium 132 L Potassium 3.8 Chloride 97 L Carbon Dioxide 26 Anion Gap 9.0 BUN 17 Creatinine 1.01 Est Cr Clr Drug Dosing 46.3 Est GFR ( Amer) 63.5 Est GFR (Non-Af Amer) 54.8 BUN/Creatinine Ratio 16.4 Glucose 182 H Calcium 9.3 Total Bilirubin AST ALT Alkaline Phosphatase Troponin I Total Protein Albumin Globulin Albumin/Globulin Ratio PG Care Time/CCT Total # of Minutes Spent Total Time Spent with Patient: Total time spent is greater than 50% in coordination of care (as documented) at patient's floor/unit and/or counseling patient: Coding Level of Care Code 18065 Subseq Obs Care Lvl 3 Diagnoses COPD exacerbation J44.1 Non-small cell carcinoma of lung C34.90 Hypertension I10 Depression F32.9 Esophageal reflux K21.9 HLD (hyperlipidemia) E78.5 Chronic hyponatremia E87.1 Itchy eyes R68.89 Headache R51 DVT prophylaxis Z29.9
[2019-11-18] MEDS: FEXOFENADINE 60 MG TAB PO SCH ×2 (13:17→20:10)
[2019-11-18] MEDS: guaiFENesin 600 MG TABCR PO SCH ×2 (13:17→20:10)
[2019-11-18] MEDS: TRIAMCINOLONE ACET NASAL SPRAY 10.8ML BTL NAE SCH (13:20)
[2019-11-18] MEDS ORDERED: OPTIRAY 320 125ml IV PRN (14:36)
--- NOTE | 2019-11-18 14:43 | CT Scan Report ---
CT head/brain wo con CLINICAL HISTORY: headache, lung cancer COMPARISON STUDY: Head CT dated 09/05/2018, MRI the brain dated 02/03/2019 TECHNIQUE: Axial CT of the brain is performed from the vertex to the skull base. IV contrast was not administered for this examination. A dose lowering technique was utilized adhering to the principles of ALARA. CT DOSE: 821.00 mGycm FINDINGS: No intra or extra-axial mass lesions are visualized. There is no CT evidence of acute cortical infarc tion. There is no evidence of midline shift. There is no acute hemorrhage. No calvarial fractures ar e visualized. There are patchy white matter hypodensities likely on a small vessel basis. There is no evidence of pathologic ventricular dilatation. There is no evidence of acute sinusitis IMPRESSION: No acute intracranial findings ACT 112: Negative or not required by law. Electronically signed by: Julio Eastman M.D. 11/18/2019 2:41 PM
--- NOTE | 2019-11-18 15:03 | CT Scan Report ---
CT ANGIOGRAPHY OF THE CHEST, PULMONARY EMBOLUS PROTOCOL CLINICAL HISTORY: lung cancer, dyspnea, eval PE; eval infiltrates COMPARISON STUDY: Chest CT October 15, 2019. Chest radiograph November 17, 2019. TECHNIQUE: Following IV administration of 120 mL of Optiray-320, helical axial images of the chest we re obtained utilizing the pulmonary embolus protocol. Maximal intensity projections and sagittal and coronal reformats were viewed on an independent 3D workstation. IV contrast was administered withou t complication. Automated exposure control was utilized for the study. A dose lowering technique wa s utilized adhering to the principles of ALARA. CT DOSE: 480.27 mGycm FINDINGS: No pulmonary emboli are identified. The size of the heart is normal. There is no pericardi al effusion. No thoracic aortic dissection is noted. Previously described enlarged left supraclavicul ar lymph nodes are suboptimally assessed on this exam due to streak artifact from a left shoulder art hroplasty. The largest node measures approximately 1.7 cm and is either unchanged or slightly decreas ed in size since chest CT of October 15, 2019. Multiple pulmonary nodules are similar to exam of October 14 20. The largest is a 9 mm nodule within the superior segment of the left lower lobe shown on image 15 5 of 243. Right perihilar opacity is similar to prior exam. There is no pneumothorax or pleural effus ion. No suspicious lesions within the bony thorax are noted. Old T6 and T7 compression fractures are unchanged. There are old right rib fractures. Upper abdomen is unremarkable. IMPRESSION: 1. No pulmonary emboli identified. 2. No acute findings within the chest. 3. No significant change in multiple pulmonary metastases since CT of October 15, 2019. Enlarged left supr aclavicular lymph node, either unchanged or slightly decreased in size since prior chest CT. 4. Unchanged right perihilar opacity consistent with postradiation change. ACT 112: Negative or not required by law. Electronically signed by: Foster Prado M.D. 11/18/2019 3:01 PM
[2019-11-18] MEDS: FLUTICASONE/VILANTEROL 200/25MCG 14 PUFFS/INHALER INH SCH (20:11)
[2019-11-18] MEDS: ATORVASTATIN 20 MG TAB PO SCH (20:11)
[2019-11-18] MEDS: ENOXAPARIN INJ 40 MG/0.4 ML SYR SQ SCH (20:11)
[2019-11-19] MEDS: ALBUT/IPRATROP 3MG/0.5MG NEB 3 ML VIAL NEB SCH ×6 (03:14→23:00)
[2019-11-19] MEDS: MULTIVITAMIN TAB PO SCH (08:09)
[2019-11-19] MEDS: PARoxetine HCL 20 MG TAB PO SCH (08:09)
[2019-11-19] MEDS: FEXOFENADINE 60 MG TAB PO SCH ×2 (08:09→20:15)
[2019-11-19] MEDS: PANTOprazole 40 MG TAB PO SCH ×2 (08:09→20:17)
[2019-11-19] MEDS: guaiFENesin 600 MG TABCR PO SCH ×2 (08:09→20:17)
[2019-11-19] MEDS: LOSARTAN POTASSIUM 50 MG TAB PO SCH (08:09)
[2019-11-19] MEDS: methylPREDNISolone 40 MG in SYRINGE 0 ML IV SCH ×2 (08:09→20:15)
[2019-11-19] MEDS: ASPIRIN 81 MG ECTAB PO SCH (08:09)
[2019-11-19] MEDS: TRIAMCINOLONE ACET NASAL SPRAY 10.8ML BTL NAE SCH (08:13)
--- NOTE | 2019-11-19 18:43 | Hospitalist Progress Note ---
Date of Service November 19, 2019 Assessment & Plan (1) COPD exacerbation: IMPROVED. No wean on steroids today. just completed 10-day course of augmentin and CTA chest w/o pneumonia or PEs on 11/17; thus, will defer on additional abx at this time. cont flutter valve. cont mucinex. cont scheduled nebs. cont pulmonary toilet. of note - no COVID-[address] w/o infiltrates. defer on testing. (2) Non-small cell carcinoma of lung: Complicated history including multiple ablative therapies, chemoradiation, currently on durvolumab. CTA w/o changes in nodules relative to early October 2019 CT chest. No PEs either. 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 This includes certification that hospital inpatient services are reasonable and necessary and in the case of services not specified as inpatient-only under 42 CFR 419.22(n), that they are appropriately provided as inpatient services in accordance to with the 2-midnight benchmark under 43 CFR 412.3(e) Admission and Anticipated Discharge Date Admission Date: November 19, 2019 Subjective feels better today. ambulated 250 feet with PT today and O2 sats stayed 92-93% the entire walk. less COLE. good appetite. no chest pain or abd pain. eyes feel better w/ drops. less nasal congestion. Review of Systems Constitutional: no fever, no chills and no body aches Respiratory: + wheezing; no hemoptysis and no sputum production Cardiovascular: + dyspnea on exertion; no chest pain and no orthopnea Gastrointestinal: no abdominal pain, no nausea and no vomiting Physical Exam Constitutional: no acute distress and no altered mental status ENMT: external ear and nose normal, oropharynx normal Respiratory: no respiratory distress Auscultation: + wheezes (MUCH better today; improved airation throughout ); no crackles Cardiovascular: Rate/Rhythm: regular rhythm and + tachycardic Heart Sounds: normal S1 and normal S2 Vessels: no JVD, + posterior tibial pulses abnormal and + dorsalis pedis pulses abnormal Extremities: no edema Gastrointestinal (Abdomen): normal bowel sounds, soft, nontender, no hepatosplenomegaly Neurologic: Motor/Sensory: + tremor Psychiatric: Orientation: alert and oriented x 3 Results & Data Results & Data ([facility]) Vital Signs (Past 12 Hours) Vital Signs Temp Pulse Resp BP Pulse Ox 11/19/19 15:50 36.7 C 95 H 18 139/75 92 11/19/19 14:58 74 18 92 11/19/19 11:31 114 H 18 93 11/19/19 11:20 92 11/19/19 07:25 36.8 C 107 H 18 128/75 90 11/19/19 06:57 110 H 18 92 PG Care Time/CCT Total # of Minutes Spent Total Time Spent with Patient: Total time spent is greater than 50% in coordination of care (as documented) at patient's floor/unit and/or counseling patient: Coding Level of Care Code 19667 Subseq Hosp Care Lvl 2 Diagnoses COPD exacerbation J44.1 Non-small cell carcinoma of lung C34.90 Hypertension I10 Depression F32.9 Esophageal reflux K21.9 HLD (hyperlipidemia) E78.5 Chronic hyponatremia E87.1 Itchy eyes R68.89 Headache R51 DVT prophylaxis Z29.9
[2019-11-19] MEDS: ENOXAPARIN INJ 40 MG/0.4 ML SYR SQ SCH (20:16)
[2019-11-19] MEDS: FLUTICASONE/VILANTEROL 200/25MCG 14 PUFFS/INHALER INH SCH (20:16)
[2019-11-19] MEDS: ATORVASTATIN 20 MG TAB PO SCH (20:17)
[2019-11-20] MEDS: ALBUT/IPRATROP 3MG/0.5MG NEB 3 ML VIAL NEB SCH ×4 (03:08→15:25)
[2019-11-20 07:28] VITALS: BP 129/76; TEMP 98.2
[2019-11-20] MEDS: methylPREDNISolone 40 MG in SYRINGE 0 ML IV SCH (07:48)
[2019-11-20] MEDS: guaiFENesin 600 MG TABCR PO SCH (07:49)
[2019-11-20] MEDS: LOSARTAN POTASSIUM 50 MG TAB PO SCH (07:49)
[2019-11-20] MEDS: PARoxetine HCL 20 MG TAB PO SCH (07:49)
[2019-11-20] MEDS: FEXOFENADINE 60 MG TAB PO SCH (07:49)
[2019-11-20] MEDS: ASPIRIN 81 MG ECTAB PO SCH (07:49)
[2019-11-20] MEDS: MULTIVITAMIN TAB PO SCH (07:49)
[2019-11-20] MEDS: PANTOprazole 40 MG TAB PO SCH (07:50)
[2019-11-20] MEDS: TRIAMCINOLONE ACET NASAL SPRAY 10.8ML BTL NAE SCH (07:51)
[2019-11-20 08:23] LABS: Calcium 9.7 mg/dl (8.5-10.1); Est GFR (African American) 51.6; Est GFR (Non-African American) 44.5; Potassium 4.4 mmol/L (3.5-5.1)
[2019-11-20 08:31] LABS: Estimated Average Glucose 117 mg/dl; Hemoglobin A1C 5.7 % (4.5-5.6)
[2019-11-20] MEDS ORDERED: bisacodyL 10 MG SUPP PR STA (09:40)
[2019-11-20 11:13] VITALS: PULSE 92; O2SAT 94
[2019-11-20] MEDS ORDERED: bisacodyL 10 MG SUPP PR ONE (12:21)
[2019-11-20] MEDS ORDERED: Nursing to Pharmacy Communication SCH (12:30)
[2019-11-20] MEDS ORDERED: methylPREDNISolone 40 MG in SYRINGE 0 ML IV SCH (14:00)
--- NOTE | 2019-11-22 10:08 | Discharge Summary ---
Date of Service date of admission - November 17, 2019 date of discharge - November 20, 2019 Admission HPI Per Admitting Provider Linsey Ron is a 74 year old female with COPD, lung squamous cell carcinoma, s/p bronchial stent 10/2018 who presents to the ER with ongoing shortness of breath on exertion with wheezing after recently stopping a steroid course given by her outpatient sap bw developer which stopped 5 days previously. Her shortness of breath has slowly been getting worse since Saturday. She does have follow up with her sap bw developer tomorrow and improved in the ER with duonebs and solu- medrol but after discussion with her ER physician and sister she feels she would not be able to manage at home with her current shortness of breath on exertion. She denies any postnasal drip, nasal congestion, sinus pain, chest pain. No calf pain. She denies any fevers, chills, cough, loss of taste or smell. She denies any known COVID-19 exposure. Principal Diagnosis COPD exacerbation Discharge Exam Constitutional no acute distress and no altered mental status Eyes no conjunctival abnormality and no scleral abnormality ENMT external ear and nose normal, oropharynx normal Respiratory no respiratory distress Auscultation: + wheezes (Minimal b/l, slightly louder on right; minimal dry rales right) Cardiovascular Rate/Rhythm: regular rate and regular rhythm Heart Sounds: normal S1 and normal S2 Vessels: no JVD, + posterior tibial pulses abnormal and + dorsalis pedis pulses abnormal Extremities: no edema Gastrointestinal (Abdomen) normal bowel sounds, soft, nontender, no hepatosplenomegaly Neurologic Motor/Sensory: + tremor Psychiatric Orientation: alert and oriented x 3 Discharge Data Allergies Allergy/AdvReac Type Severity Reaction Status Date / Time hydrochlorothiazide AdvReac Intermediate DIZZY, Verified 11/17/19 12:56 "LOOPY" FEELING Consultations PT, OT Ordered Studies CT angio chest PE protocol - IMPRESSION: 1. No pulmonary emboli identified. 2. No acute findings within the chest. 3. No significant change in multiple pulmonary metastases since CT of October 15, 2019. Enlarged left supraclavicular lymph node, either unchanged or slightly decreased in size since prior chest CT. 4. Unchanged right perihilar opacity consistent with postradiation change. CT head/brain wo con - * no acute stroke * no ICH * no evidence of metastatic disease * no sinusitis Hospital Course (1) COPD exacerbation: IMPROVED during her stay with customary measures including IV steroids, nebs, and supportive care. Did not require O2 during her stay. NO COVID-19 risk factors and no pneumonic infiltrates on cxr/CT thus COVID testing was deferred. Was afebrile during her stay. Just completed a 10-day course of augmentin prior to this admission and given the absence of pneumonia or sinusitis on imaging additional antibiotics were deferred during the admission. On day of admission her O2 sats were checked during ambulation and were normal. Patient will complete a slow prednisone taper upon discharge. She will continue her usual inhalers and nebs. Recommended f/u with her PCP within a few days of discharge to ensure stability. (2) Non-small cell carcinoma of lung: Complicated history including multiple ablative therapies, chemoradiation; currently on durvolumab. CTA w/o changes in nodules relative to early October 2019 CT chest. No PEs either on CTA this admission. Follow-up with oncology post-discharge. 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 stable over 1 year time period Na level was 132 on 3 successive days; this is baseline for her (8) Itchy eyes: IMPROVED with below medications while hospitalized this may be dry eyes or allergic in origin artificial tears prn nasacort nasal spray daily hilda BID no evidence of infectious conjunctivitis on exam (9) Headache: CT head w/o mets or sinus infection no acute findings headache resolved with treatment of sinus/eye symptoms and steroids Total Time Total Time Spent Total Time Spent (In Minutes): 35 Total Time Includes: Examination of the Patient, Discharge Planning and Medication Reconciliation Discharge Plan Discharge Items Patient Disposition: Home - Self-Care Reason For Visit: COPD EXACERBATION Discharge Diagnosis: COPD exacerbation - improved. Sinus and eye congestion - improved. Condition on Discharge: Good Activity: As commented below Activity Comment: gradually increase activity over the next week Driving/Machine Use: No limitations Non-emergency contact: Primary Care Provider Call non-emergency contact if: you have any medication questions, your symptoms worsen and you have a fever Follow-up/Referrals: Thebaud,Ari, DO [Primary Care Provider] - 11/23/19 2:40 pm (Please, follow up with Dr. Renee on SaturdayNovember 22 at 2:40 pm. *If you need to change this appointment, call the office at [phone].) Diet: Regular Addtl Attending Provider Instructions: You were treated for a "COPD exacerbation" with IV steroids, nebulizer treatments, flutter valve, etc. You improved with these measures. You did not require oxygen at any time. Physical therapy saw you and you did very nicely with your walking. Your oxygen levels were also good with walking. A CAT scan of the lungs did NOT show any blood clots or progression of the cancer. We did not find fluid or pneumonia on the CAT scan either. A CAT scan of the head did NOT show cancer. It did not show any sinus infection. Recommendations - 1. prednisone taper - START on 11/21/2019. It is a 13-day taper. Take with food. I sent a NEW prescription for the 13-day taper to [facility]. Please do NOT take any previously picked up prednisone prescriptions. 2. know that the prednisone can cause fluid/water retention. If you notice swelling in your legs, swelling in your abdomen, or any weight gain of more than 2-3 pounds in 1-2 days please call your family doctor RIGHT AWAY. 3. for sinus congestion take hath-jra-irheylf hilda (fexofenadine) 60mg twice daily. I believe this helped your symptoms. 4. take ldic-hrs-wuiyedk allergy eye drops for dry, itchy, uncomfortable eyes. Any urwo-pnf-snyjndt product will do but "pataday" is excellent. 5. may use lxvs-tye-kgmicbi mucinex up to 1200mg twice daily for cough/congestion. 6. please use your nebulizer treatments FOUR TIMES DAILY for the next 4-5 days as you recover. After that you can use them as needed. 7. continue your flutter valve and use every few hours at home for the next 5-7 days. This will help you recover faster from your COPD exacerbation. 8. I would avoid prolonged time outdoors due to high pollen levels. This may make your breathing worse. 9. wear a mask when you travel anywhere in public. Return to [facility] if - * you have fever over 100.5 degrees * you have worsening shortness of breath despite all of your usual medications, prednisone, etc * you develop significant weight gain, swelling, etc * you develop chest pain * any other concerns Addtl Transition Of Care Specialist Provider Instructions: General Information About COVID-19: Coronavirus disease 2019 (COVID-19) is a virus that causes a respiratory illness. It is caused by a coronavirus called 2019 novel coronavirus (2019- nCoV). There are many types of coronavirus. Coronaviruses are a very common cause of bronchitis. They may sometimes cause lung infection(pneumonia). Symptoms can range from mild to severe respiratory illness. These viruses are also found in some animals. COVID-19 was first found in people in [facility], in late 2019. The virus spreads through droplets of fluid that a person coughs or sneezes into the air. It may be spread if you touch a surface with virus on it, such as a handle or object, and then touch your mouth. What are the symptoms of COVID-19? Some people have no symptoms or mild symptoms. Symptoms may appear 2 to 14 days after contact with the virus. Symptoms can include: Fever Coughing Trouble breathing What are possible complications from COVID-19? In many cases, this virus can cause infection (pneumonia) in both lungs. In some cases, this can cause . How is COVID-19 diagnosed? Your healthcare provider will ask about your symptoms. He or she will also ask about your recent travel and contact with sick people. Testing for the virus is only done through the CDC. If yourhealthcare provider thinks you may have COVID- 19, he or she will work with your local health department and the CDC on testing. Follow all instructions from your healthcare provider. COVID-19 is diagnosed by: Nasal and throat swab. A cotton-tipped swab is wiped inside your nose or throat. This is done to check for viruses in your nasal mucus. Sputum culture. A small sample of mucus coughed from your lungs (sputum) is collected if you have a cough. It is checked for the virus. How is COVID-19 treated? There is currently no medicine to treat the virus. Treatment is done to help your body while it fights the virus. This is known as supportive care. Supportive care may include: Pain medicine. These include acetaminophen and ibuprofen. They are used to help ease pain and reduce fever. Bed rest. This helps your body fight the illness. For severe illness, you may need to stay in the hospital. Care during severe illness may include: IV (intravenous) fluids.These are given through a vein to help keep your body hydrated. Oxygen. Supplemental oxygen or ventilation with a breathing machine (ventilator) may be given. This is done to keep enough oxygen in your body. Are you at risk for COVID-19? If youve been to a place where people have been sick with this virus, you are at risk for infection. You are at risk if you: Recently traveled to an affected area Had contact with a sick person who recently traveled to this area Had contact with a person who was diagnosed with COVID-19 How can COVID-19 be prevented? There is no vaccine yet. The best prevention is to not have contact with the virus. The CDC advises that people should not travel to areas where there are COVID-19 outbreaks right now for any reason that is not urgent. To help prevent spreading the infection, wash your hands often, or use an alc ohol-basedhand reservoir engineer. If you are in an area with COVID-19: Wash your hands often. Or use an alcohol-based hand reservoir engineer often. Only touch your eyes, nose, or mouth with clean hands. Dont have contact with people who are sick. Follow local instructions about being in public. For example, you may be told to not use public transport for a period of time. Stay away from markets that have live or animals. Wash your hands after touching any animals. Don't touch animals that may be sick. Dont share eating or drinking tools with sick people. Dont kiss someone who is sick. Clean surfaces often with disinfectant. If you were in an area with COVID-19 in the last 14 days: Call your healthcare provider. He or she can talk with local health staff to see what action may be needed. Follow all instructions from your provider. Take your temperature every morning and evening for at least 14 days. This is to check for fever. Keep a record of the readings. Keep watch for symptoms of the virus. Tell your provider right away if you have symptoms. If you were in an area with COVID-19 and have a fever or other symptoms: Dont panic. Keep in mind that other illnesses can cause similar symptoms. Stay away from work, school, and public places. Limit physical contact with family members. Don't kiss anyone or share eating or drinking utensils. Clean surfaces you touch with disinfectant. This is to help prevent the virus from spreading. Call your healthcare provider. Explain that you have been exposed to COVID-19 and have symptoms. Do this before going to any hospital. Wait for instructions. Keep in mind that healthcare staff may wear protective equipment such as masks, gowns, gloves, and eye protection. You may be put in a separate room. This is to prevent the possible virus from spreading. Tell the healthcare staff about recent travel. This includes local travel on public transport. Staff may need to find other people you have been in contact with. Follow all instructions the healthcare staff give you. If you have been diagnosed with COVID-19 Follow all instructions from your healthcare provider. Dont leave your home, except to get medical care. Call your healthcare providers office before going. They can prepare and give you instructions. This will help prevent the virus from spreading. Dont go to work, school, or public areas. Dont use public transport or taxis. Stay away from other people in your home. Have them wear face masks around you. Dont share household items or food. Wear a face mask if you can. This includes at home or in a medical facility. Cover your face with a tissue when you cough or sneeze. Throw the tissue away. Wash your hands. Wash your hands often. Caregivers should: Follow all instructions from healthcare staff. Wear a face mask and protective clothing as advised. Wash hands often. Keep track of the sick persons symptoms. Clean surfaces, fabrics, and laundry thoroughly. Keep other people away from the sick person. When to call your healthcare provider Call your healthcare provider: If youve recently traveled and have symptoms If you have been diagnosed with COVID-19 and your symptoms are worse To learn more To find out more about COVID-19, visit the CDC website at www.cdc.gov/coronavirus/2019-ncov/index.html. [employer]. [address] [place] [address]. All rights reserved. This information is not intended as a substitute for professional medical care. Always follow your healthcare professional's instructions. This information has been adapted from [employer] Pending Studies at Discharge: No Stand-Alone Forms: My [facility], Smoking Cessation Medications and DC Order Prescriptions: New fexofenadine 60 mg Tablet 60 mg PO BID Qty: 30 RF: 0 triamcinolone acetonide [Nasacort] 55 mcg Aerosol,[place] 2 spray BRIGID DAILY Qty: 1 RF: 0 prednisone 10 mg tablet 10 mg PO DIRECTED Qty: 48 RF: 0 Continued ipratropium-albuterol 0.5 mg-3 mg(2.5 mg base)/3 mL solution for nebulization 3 ml INHALATION QID PRN (Reason: shortness of breath or wheezing) Qty: 180 RF: 1 albuterol sulfate [Ventolin HFA] 90 mcg/actuation HFA aerosol inhaler 2 puffs INH Q6H PRN (Reason: shortness of breath or wheezing) Qty: 18 RF: 3 Symbicort 160-4.5 mcg/actuation HFA aerosol inhaler 1 puff INHALATION BID Qty: 1 RF: 0 lansoprazole [Prevacid] 15 mg Capsule,Delayed Release(Dr/Ec) 15 mg PO BID RF: 0 paroxetine HCl 20 mg Tablet 20 mg PO QAM RF: 0 multivitamin Tablet 1 tab PO QAM RF: 0 losartan [Cozaar] 50 mg Tablet 50 mg PO QAM RF: 0 diltiazem HCl [DILT-XR] 180 mg capsule,ext.rel 24h degradable 180 mg PO QAM RF: 0 atorvastatin 20 mg Tablet 20 mg PO HS RF: 0 aspirin 81 mg Tablet,Delayed Release (Dr/Ec) 81 mg PO QAM RF: 0 alprazolam 0.25 mg Tablet 0.25 mg PO Q12 PRN (Reason: Anxiety) RF: 0 Discharge Orders: Discharge Order (Routine); Ordered 11/20/19 Ordered By: Serge De La Vega Admission Data Admit Date/Time: 11/19/19 13:21 Attending Provider: Serge De La Vega Admit Provider: Serge Lee Primary Care Provider: Ari Renee Other Providers: Rena,Home Health ; Serge De La Vega Other Interventions: Discharge Summary Assessment (RN) Last Done: 11/20/19 12:52 DC Date/Time DO NOT enter until pt leaves facility: 11/20/19 15:29 Coding Level of Care Code D/C Day Management >30 mins Diagnoses COPD exacerbation J44.1 Non-small cell carcinoma of lung C34.90 Hypertension I10 Depression F32.9 Esophageal reflux K21.9 HLD (hyperlipidemia) E78.5 Chronic hyponatremia E87.1 Itchy eyes R68.89 Headache R51
== END 2019-11-20 15:29 | disposition home or self-care (01) | DRG 191 ==
LOC: ED 11:18 → 2W 11:18 → SUATTDRO 15:36 → 2W 17:27 → SUATTDRO 11-19 13:21

== ENCOUNTER 2020-01-02 22:35 | Inpatient (IN) ==
[2020-01-02 23:02] LABS: Eosinophils # (auto) 0.03 K/uL (0-0.5); Eosinophils % (auto) 0.3 %; Hemoglobin 13.5 g/dL (12.0-16.0); Immature Granulocytes # (auto) 0.25 K/uL (0.00-0.02); Immature Granulocytes % (auto) 2.5 %; Lymphocytes # (auto) 0.63 K/uL (1.2-3.4); Lymphocytes % (auto) 6.4 %; Mean Corpuscular Hemoglobin 32.4 pg (25-34); Mean Corpuscular Hgb Conc 36.5 g/dL (32-36); Mean Corpuscular Volume 88.7 fL (80-100); Mean Platelet Volume 8.5 fL (7.4-10.4); Monocytes # (auto) 0.91 K/uL (0.11-0.59); Monocytes % (auto) 9.2 %; Neutrophils # (auto) 8.09 K/uL (1.4-6.5); Neutrophils % (auto) 81.6 %; Platelet Count 225 K/uL (130-400); RDW Coefficient of Variation 13.1 % (11.5-14.5); RDW Standard Deviation 42.2 fL (36.4-46.3); Red Blood Count 4.17 M/uL (4.2-5.4); White Blood Count 9.91 K/uL (4.8-10.8)
[2020-01-02 23:13] LABS: Partial Thromboplastin Ratio 0.7; Partial Thromboplastin Time 20.8 Seconds (21.0-31.0); Prothrombin Time 10.7 Seconds (9.0-12.0)
[2020-01-02] MEDS ORDERED: NITROGLYCERIN 2% OINTMENT 30GM TUBE EXT STA (23:16)
[2020-01-02 23:18] LABS: Albumin Level 3.7 gm/dl (3.4-5.0); Aspartate Aminotransferase 18 U/L (15-37); BUN Creatinine Ratio 16.4 (10-20); Blood Urea Nitrogen 17 mg/dl (7-18); Calcium 8.9 mg/dl (8.5-10.1); Carbon Dioxide 26 mmol/L (21-32); Chloride 85 mmol/L (98-107); Est GFR (African American) 60.6; Est GFR (Non-African American) 52.3; Glucose 154 mg/dl (70-99); Lipase 98 U/L (73-393); Potassium 4.1 mmol/L (3.5-5.1); Sodium 123 mmol/L (136-145)
[2020-01-02 23:28] LABS: Alanine Aminotransferase 28 U/L (12-78); Albumin Globulin Ratio 1.2 (0.9-2); Alkaline Phosphatase 73 U/L (45-117); Bilirubin,Total 0.8 mg/dl (0.2-1); Total Protein 6.7 gm/dl (6.4-8.2); Troponin I < 0.015 ng/ml (0-0.045)
[2020-01-03] MEDS ORDERED: OPTIRAY 320 125ml IV PRN (00:54)
--- NOTE | 2020-01-03 01:27 | Emergency Department Note ---
Impression & Plan Left-sided chest pain ED Provider Note INFORMANT: [Patient] ED PROVIDER(S): Negro Frias MD CHIEF COMPLAINT: Left-sided chest pain PLAN: Disposition: Admitted Condition: [Good] Outpatient prescription management: [none] MEDICAL DECISION MAKING: Presented with intermittent left-sided chest pain. Her ECG was nonischemic. She was feeling better on evaluation. Nitropaste was applied. She had already taken aspirin. Chest x-ray performed. She has a mass in the right chest. She has known lung cancer. The patient had an unremarkable CBC and chemistry panel. Troponin negative. The patient was sent for CT imaging due to concerns about pulmonary embolism. Chronic findings as well as findings related to her malignancy found. No acute pulmonary embolism or other acute pathology noted on imaging. The patient was reassessed. Since receiving the Nitropaste she has had no additional chest pain. I discussed further management in the hospital and the patient was in agreement. Consultation was placed with Dr. Madhu Keen of the hospitalist service. The patient was evaluated in the ER for further management. Triage Nursing notes reviewed and agree them. [Additional history obtained from] family Vital Signs: reviewed and remarkable for mild hypertension Differential diagnosis: Cardiac ischemia, aortic dissection, pulmonary embolism, pneumothorax, pneumonia, pericarditis, myocarditis, esophageal rupture, GERD, cholecystitis, pancreatitis, musculoskeletal, as well as other pathologies. Diagnostics interpreted by me: ECG: Rate: 87 Rhythm: Sinus rhythm [place]:Normal QRS:Normal ST segements:No elevation or depression Other:No PACs or PVCs Cardiac Monitoring: Cardiac monitoring ordered by me: The patient was placed on continuous cardiac monitoring and observed. It revealed a normal sinus rhythm at 82 beats per minute without ectopy or evidence of dysrhythmia. Imaging studies: XR x-ray reveals a right upper lobe mass. No pneumothorax. No obvious infiltrate. CT imaging of the chest Consultation(s): [facility] hospitalist service HPI: The patient is a 74 year old female who presents to the Emergency Room with complaints of left-sided chest pain. This started intermittently 2 days ago and is worsening. The patient also notes the following associated symptoms, pain radiating to the back as well as left arm, mild shortness of breath, and nausea. The patient has has taken no medication for relieving factors. Current pain is rated as 0/10. Pain resolved just prior to arrival. Pt denies LOC, headache, fevers, chills, diaphoresis, visual changes, neck pain, vomiting, abdominal pain, back pain, melena, hematochezia, urinary symptoms, numbness, weakness, lymphadenopathy, rash, or other complaints. ROS: See above HPI for pertinent positives & negatives. A total of [10] systems reviewed and were otherwise negative. PAST MEDICAL HISTORY:[See Below] COPD, right lung cancer PAST SURGICAL HISTORY:[See Below] FAMILY HISTORY:[See Below] SOCIAL HISTORY:[See Below] lives with family HOME MEDICATIONS:[See Below] ALLERGIES:[See Below] VITALS:[See Below] PHYSICAL EXAMINATION: GENERAL: Awake, alert, well-appearing, in no distress HENT: Normocephalic, atraumatic. Oropharynx unremarkable. EYES: Normal conjunctiva. Sclera non-icteric. NECK: Inspection normal. Non-tender. Supple. No nuchal rigidity. FROM. No masses. RESPIRATORY: Clear to auscultation. No wheezes. No rales. Normal respiratory effort. CARDIAC: Normal rate. Normal rhythm. No murmurs. No rubs. Extremities warm and well perfused. Pulses equal. No JVD. GI: Soft, non-distended. No tenderness to palpation. No rebound or guarding. No masses. RECTAL: Deferred. MUSCULOSKELETAL: Atraumatic. Chest examination reveals no tenderness. The back is symmetrical on inspection without obvious abnormality. There is no CVA tenderness to palpation. No joint edema. LOWER EXTREMITIES: Calves are equal size bilaterally and non-tender. No edema. No discoloration. NEURO: Normal sensorium. No sensory or motor deficits noted. SKIN: No rash or jaundice noted. ED COURSE: [Critical Care:] [None] Negro Frias MD Past Med/Surg History Medical History (Updated 01/03/20 @ 01:18 by Negro Frias MD) Acute respiratory failure with hypoxia ?08/2018 Anxiety Asthma Cancer of right lung S/P CRYOTHERAPY (2015), S/P CHEMO/RADIATION, IMMUNOTHERAPY Cellulitis of left lower extremity (Resolved) Chronic hyponatremia COPD (chronic obstructive pulmonary disease) (Acute) Depression Dysphagia (Inactive) Dyspnea on minimal exertion GERD (gastroesophageal reflux disease) Hemoptysis (Inactive) Hyperlipidemia (Chronic) Hypertension Hypomagnesemia (Inactive) Hypoxia (Inactive) Irritable bowel disease Lung nodules Mediastinal lymphadenopathy Multiple fracture Neutropenia (Inactive) Neutropenic sepsis ? 08/2018 Obesity Pancytopenia Pneumonia ?09/2018 S/P ABX Sepsis (Inactive) Surgical History Difficult intubation LEFT FOOT RECONSTRUCTION: 12/28/16: GLIDESCOPE# 3 ETT 7.0 AT [facility] BRONCHOSCOPY; RUL STENT INSERTION: 10/16/18: "ELECTIVE" GLIDESCOPE #3, ETT 8.0 AT [facility] History of appendectomy History of bronchoscopy MULTIPLE 12/07/13 - MAC #2, Glidescope #3, ETT #8.0, HiLo Oral History of cataract surgery B/L History of colonoscopy 2016 History of difficult intubation 12/28/16 - Glidescope #3, ETT #7, Oral HiLo, Good View with Glidescope 12/07/13 - MAC #2, Glidescope #3, ETT #8.0, HiLo Oral History of esophagogastroduodenoscopy (EGD) W/ REMOVAL OF FOOD BOLUS 05/18/2019 [facility] Hx of abdominal hysterectomy 1972 Hx of foot surgery 2014 & 2016 - LEFT X2 12/28/16 - Glidescope #3, ETT #7, Oral HiLo, Good View with Glidescope Hx of repair of rotator cuff 2008 - RIGHT Hx of total shoulder replacement 2015 - LEFT 11/14/15 - MAC #3, ETT #7, Oral HiLo, Grade 1 View S/P pulmonary artery branches stent placement STENT PLACED VIA BRONCHOSCOPY 11/13/18, s/p removal 11/10/18 Social History Smoking Status: Former smoker Tobacco Type: Cigarettes Cigarettes Per Day: 1 pack/week; Second Hand Exposure: Yes (hx); Hx Alcohol Use: No Hx Substance Use: No Preferred Language: Irish Communication Ability: Effective Visual Impairment: No Limitations Hearing Ability: Normal Unarmed Security Guard Required: No Beliefs That Will Affect Care: None marital status: / Current Living Situation: Family Current Living Situation Comment: lives with mother and sister current occupational status: retired current occupation: Retired from [employer] How many Children do You have: 2 Feels Safe at Home: Yes caffeine: Yes (1 pot of coffee/day ) Allergies Allergies Allergy/AdvReac Type Severity Reaction Status Date / Time hydrochlorothiazide AdvReac Intermediate DIZZY, Verified 01/02/20 23:03 "LOOPY" FEELING Home Meds Home Medications Medication Instructions Recorded Confirmed alprazolam 0.25 mg PO Q12 PRN 03/27/18 01/02/20 aspirin 81 mg PO QAM 03/27/18 01/02/20 atorvastatin 20 mg PO HS 03/27/18 01/02/20 lansoprazole [Prevacid] 15 mg PO BID 04/02/19 01/02/20 losartan [Cozaar] 50 mg PO QAM 04/02/19 01/02/20 multivitamin 1 tab PO QAM 04/02/19 01/02/20 paroxetine HCl 20 mg PO QAM 04/02/19 01/02/20 diltiazem HCl [DILT-XR] 180 mg PO QAM 11/17/19 01/02/20 Previous Rx's Medication Instructions Recorded albuterol sulfate 90 mcg/actuation 2 puffs INH Q6H PRN #18 gm 07/09/19 aerosol inhaler budesonide-formoterol HFA 160 1 puff INHALATION BID #1 gm 07/09/19 mcg-4.5 mcg/actuation aerosol inhaler fexofenadine 60 mg PO BID #30 tab 11/20/19 triamcinolone acetonide [Nasacort] 2 spray BRIGID DAILY #1 inhaler 11/20/19 ipratropium 0.5 mg-albuterol 3 mg 3 ml INHALATION QID PRN #180 ml 11/26/19 (2.5 mg base)/3 mL nebulization soln prednisone 10 mg tablet 10 mg PO DAILY #60 tab 12/02/19 Results & Data (ED) Vital Signs Vital Signs - 24 hr 01/02/20 22:42 01/02/20 23:00 01/02/20 23:01 Temperature 36.7 C Temperature Source Oral Pulse Rate 84 88 84 Pulse Rate from SpO2 Sensor 67 Respiratory Rate 20 19 20 Respiratory Effort / Characteristics Short of Breath Blood Pressure 155/76 H 160/74 H Blood Pressure Mean 102 112 Pulse Oximetry 94 95 94 Oxygen Delivery Method Room Air Room Air Sepsis Recent Fever Within 48 Hours No Sepsis New/Unexplained Change in Mental Status No Sepsis Action Taken by Nursing No Action Required 01/02/20 23:03 01/02/20 23:10 01/02/20 23:20 Temperature Temperature Source Pulse Rate 88 124 H 83 Pulse Rate from SpO2 Sensor 86 78 82 Respiratory Rate 18 29 H 27 H Respiratory Effort / Characteristics Blood Pressure Blood Pressure Mean Pulse Oximetry 96 95 96 Oxygen Delivery Method Sepsis Recent Fever Within 48 Hours Sepsis New/Unexplained Change in Mental Status Sepsis Action Taken by Nursing 01/02/20 23:30 01/02/20 23:40 01/02/20 23:50 Temperature Temperature Source Pulse Rate 82 121 H 83 Pulse Rate from SpO2 Sensor 73 81 79 Respiratory Rate 23 31 H 27 H Respiratory Effort / Characteristics Blood Pressure 157/84 H Blood Pressure Mean 123 Pulse Oximetry 97 94 98 Oxygen Delivery Method Sepsis Recent Fever Within 48 Hours Sepsis New/Unexplained Change in Mental Status Sepsis Action Taken by Nursing 01/03/20 00:00 01/03/20 00:01 01/03/20 00:10 Temperature Temperature Source Pulse Rate 84 82 82 Pulse Rate from SpO2 Sensor 81 77 84 Respiratory Rate 22 21 20 Respiratory Effort / Characteristics Blood Pressure 160/92 H Blood Pressure Mean 103 Pulse Oximetry 97 97 97 Oxygen Delivery Method Sepsis Recent Fever Within 48 Hours Sepsis New/Unexplained Change in Mental Status Sepsis Action Taken by Nursing 01/03/20 00:46 01/03/20 00:47 01/03/20 00:50 Temperature Temperature Source Pulse Rate 86 88 84 Pulse Rate from SpO2 Sensor 83 87 85 Respiratory Rate 29 H 28 H 26 H Respiratory Effort / Characteristics Blood Pressure 157/88 H Blood Pressure Mean 135 Pulse Oximetry 99 99 98 Oxygen Delivery Method Sepsis Recent Fever Within 48 Hours Sepsis New/Unexplained Change in Mental Status Sepsis Action Taken by Nursing 01/03/20 01:00 01/03/20 01:01 01/03/20 01:10 Temperature Temperature Source Pulse Rate 83 83 83 Pulse Rate from SpO2 Sensor 82 84 83 Respiratory Rate 28 H 21 20 Respiratory Effort / Characteristics Blood Pressure 159/90 H Blood Pressure Mean 100 Pulse Oximetry 98 98 98 Oxygen Delivery Method Sepsis Recent Fever Within 48 Hours Sepsis New/Unexplained Change in Mental Status Sepsis Action Taken by Nursing 01/03/20 01:20 01/03/20 01:30 01/03/20 01:31 Temperature Temperature Source Pulse Rate 86 84 86 Pulse Rate from SpO2 Sensor 86 83 87 Respiratory Rate 26 H 21 24 Respiratory Effort / Characteristics Blood Pressure 187/87 H Blood Pressure Mean 99 Pulse Oximetry 98 98 98 Oxygen Delivery Method Sepsis Recent Fever Within 48 Hours Sepsis New/Unexplained Change in Mental Status Sepsis Action Taken by Nursing 01/03/20 01:40 Temperature Temperature Source Pulse Rate 90 Pulse Rate from SpO2 Sensor 88 Respiratory Rate 24 Respiratory Effort / Characteristics Blood Pressure Blood Pressure Mean Pulse Oximetry 99 Oxygen Delivery Method Sepsis Recent Fever Within 48 Hours Sepsis New/Unexplained Change in Mental Status Sepsis Action Taken by Nursing Laboratory Data Result diagrams: 01/02/20 22:52 01/02/20 22:52 Lab Results 01/02/20 01/02/20 01/02/20 Range/Units 22:52 22:52 22:52 WBC 9.91 (4.8-10.8) K/uL RBC 4.17 L (4.2-5.4) M/uL Hgb 13.5 (12.0-16.0) g/dL Hct 37.0 (37-47) % MCV 88.7 (80-100) fL MCH 32.4 (25-34) pg MCHC 36.5 H (32-36) g/dL RDW Std Deviation 42.2 (36.4-46.3) fL RDW Coeff of [place] 13.1 (11.5-14.5) % Plt Count 225 (130-400) K/uL MPV 8.5 (7.4-10.4) fL Immature Gran % (Auto) 2.5 % Neut % (Auto) 81.6 % Lymph % (Auto) 6.4 % [place] % (Auto) 9.2 % Eos % (Auto) 0.3 % Baso % (Auto) 0.0 % Neut # (Auto) 8.09 H (1.4-6.5) K/uL Lymph # (Auto) 0.63 L (1.2-3.4) K/uL [place] # (Auto) 0.91 H (0.11-0.59) K/uL Eos # (Auto) 0.03 (0-0.5) K/uL Baso # (Auto) 0.00 (0-0.2) K/uL Immature Gran # (Auto) 0.25 H (0.00-0.02) K/uL PT 10.7 (9.0-12.0) Seconds INR 1.0 (0.9-1.1) APTT 20.8 L (21.0-31.0) Seconds PTT Ratio 0.7 Sodium 123 L (136-145) mmol/L Potassium 4.1 (3.5-5.1) mmol/L Chloride 85 L (98-107) mmol/L Carbon Dioxide 26 (21-32) mmol/L Anion Gap 11.0 (3-11) BUN 17 (7-18) mg/dl Creatinine 1.05 (0.6-1.2) mg/dl Est Cr Clr Drug Dosing Not Reportable Est GFR ( Amer) 60.6 Est GFR (Non-Af Amer) 52.3 BUN/Creatinine Ratio 16.4 (10-20) Glucose 154 H (70-99) mg/dl Calcium 8.9 (8.5-10.1) mg/dl Total Bilirubin 0.8 (0.2-1) mg/dl AST 18 (15-37) U/L ALT 28 (12-78) U/L Alkaline Phosphatase 73 (45-117) U/L Troponin I < 0.015 (0-0.045) ng/ml Total Protein 6.7 (6.4-8.2) gm/dl Albumin 3.7 (3.4-5.0) gm/dl Globulin 3.0 (2.5-4.0) gm/dl Albumin/Globulin Ratio 1.2 (0.9-2) Lipase 98 (73-393) U/L Administered Medications Ioversol (Optiray 320 125ml) 120 ml IV ONCE PRN PRN Reason: Interaction Checking Stop: 01/07/20 00:53 Last Admin: 01/03/20 00:54 Dose: 1 ml Documented by: [id number] Discontinued Medications Nitroglycerin (Nitro-Bid 2%) 0.5 inch EXT NOW STA Stop: 01/02/20 23:17 Last Admin: 01/02/20 23:37 Dose: 0.5 inch Documented by: [id number] Discharge Plan Visit Data Chief Complaint: Chest Pain Stated Complaint: DYSPNEA, CHEST PAIN ED Provider: Negro Frias Discharge Problem: Left-sided chest pain Forms Stand Alone Forms: My [facility] [employer] Prescriptions Prescriptions: No Action ipratropium-albuterol 0.5 mg-3 mg(2.5 mg base)/3 mL solution for nebulization 3 ml INHALATION QID PRN (Reason: shortness of breath or wheezing) Qty: 180 R F: 1 albuterol sulfate [Ventolin HFA] 90 mcg/actuation HFA aerosol inhaler 2 puffs INH Q6H PRN (Reason: shortness of breath or wheezing) Qty: 18 RF: 3 Symbicort 160-4.5 mcg/actuation HFA aerosol inhaler 1 puff INHALATION BID Qty: 1 RF: 0 prednisone 10 mg tablet 10 mg PO DAILY Qty: 60 RF: 5 lansoprazole [Prevacid] 15 mg Capsule,Delayed Release(Dr/Ec) 15 mg PO BID RF: 0 paroxetine HCl 20 mg Tablet 20 mg PO QAM RF: 0 multivitamin Tablet 1 tab PO QAM RF: 0 losartan [Cozaar] 50 mg Tablet 50 mg PO QAM RF: 0 diltiazem HCl [DILT-XR] 180 mg capsule,ext.rel 24h degradable 180 mg PO QAM RF: 0 fexofenadine 60 mg Tablet 60 mg PO BID Qty: 30 RF: 0 triamcinolone acetonide [Nasacort] 55 mcg Aerosol,[place] 2 spray BRIGID DAILY Qty: 1 RF: 0 atorvastatin 20 mg Tablet 20 mg PO HS RF: 0 aspirin 81 mg Tablet,Delayed Release (Dr/Ec) 81 mg PO QAM RF: 0 alprazolam 0.25 mg Tablet 0.25 mg PO Q12 PRN (Reason: Anxiety) RF: 0
[2020-01-03] MEDS ORDERED: ALUMINUM/MAGNESIUM SUSP 30 ML UDC PO PRN (04:58)
[2020-01-03] MEDS ORDERED: methylPREDNISolone 125 MG/2 ML VIAL IV STA (04:58)
[2020-01-03] MEDS ORDERED: ONDANSETRON INJ 2 MG/ML 2 ML VIAL IV PRN (04:58)
[2020-01-03] MEDS ORDERED: ALPRAZolam 0.25 MG TABLET PO PRN (04:58)
[2020-01-03] MEDS ORDERED: methylPREDNISolone 125 MG in SYRINGE 0 ML IV STA (05:04)
--- NOTE | 2020-01-03 05:05 | History & Physical Report ---
Date of Service January 03, 2020 Assessment & Plan (1) SOB (shortness of breath): Shortness of breath-likely combination of COPD exacerbation and fluid overload/CHF. Present on Admission?: Yes (2) COPD exacerbation: COPD exacerbation/lung cancer- Give Solu-Medrol 125 mg IV now, then 40 mg IV every 8 hours. Duonebs every 4 hours while awake and every 2 hours when necessary. Azithromycin 500 mg IV daily Nasal cannula 2 L oxygen, titrate to keep pulse ox around 94% Present on Admission?: Yes (3) Left-sided chest pain: May be due to underlying lung mass, COPD exacerbation or cardiac. The patient will be admitted to telemetry for serial cardiac enzymes, serial EKG's, cardiac rhythm monitoring and a 2-D echocardiogram with Dopplers. Present on Admission?: Yes (4) Chronic hyponatremia: Acute worsening of chronic hyponatremia/fluid overload- Sodium was 123 upon admission, with range 129-134. Ordered a serum and urine osmolality. Urine osmolality was 209 Serum osmolality was 267 We will give Lasix 40 mg IV x1 now and follow clinical response. Check daily BMP and magnesium levels. Follow serial cardiac enzymes Present on Admission?: Yes (5) HLD (hyperlipidemia): Atorvastatin 20 mg p.o. daily Present on Admission?: Yes (6) Non-small cell carcinoma of lung: See above. Patient with known worsening of cancer despite chemotherapy. She has been seen by palliative care at last hospitalization Present on Admission?: Yes (7) Esophageal reflux: Continue lansoprazole 15 mg p.o. twice daily Present on Admission?: Yes Admission and Anticipated Discharge Date Admission Date: January 03, 2020 History of Present Illness Chief Complaint: Patient presents to the emergency department with complaint of worsening shortness of breath and intermittent left-sided chest pain. Primary Care Provider: Ari Renee DO The patient is a 74-year-old female with a past medical history including COPD, chronic hyponatremia, lung mass, status post pulmonary artery branches stent placement, chronic pain syndrome, hyperlipidemia, GERD, hypertension, non-small cell lung cancer, and anxiety with depression. Her most recent hospitalization was from 11/16-11/19 for COPD exacerbation. Work-up in the emergency department included a CT angiography of the chest which was negative for PE, but did show progression of underlying disease. Allergies Allergy/AdvReac Type Severity Reaction Status Date / Time hydrochlorothiazide AdvReac Intermediate DIZZY, Verified 01/02/20 23:03 "LOOPY" FEELING Home Medications Home Medications Medication Instructions Recorded Confirmed Type alprazolam 0.25 mg PO Q12 PRN 03/27/18 01/02/20 History aspirin 81 mg PO QAM 03/27/18 01/02/20 History atorvastatin 20 mg PO HS 03/27/18 01/02/20 History lansoprazole [Prevacid] 15 mg PO BID 04/02/19 01/02/20 History losartan [Cozaar] 50 mg PO QAM 04/02/19 01/02/20 History multivitamin 1 tab PO QAM 04/02/19 01/02/20 History paroxetine HCl 20 mg PO QAM 04/02/19 01/02/20 History albuterol sulfate 90 mcg/actuation 2 puffs INH Q6H PRN #18 gm 07/09/19 01/02/20 Rx aerosol inhaler budesonide-formoterol HFA 160 1 puff INHALATION BID #1 gm 07/09/19 01/02/20 Rx mcg-4.5 mcg/actuation aerosol inhaler diltiazem HCl [DILT-XR] 180 mg PO QAM 11/17/19 01/02/20 History fexofenadine 60 mg PO BID #30 tab 11/20/19 01/02/20 Rx triamcinolone acetonide [Nasacort] 2 spray BRIGID DAILY #1 inhaler 11/20/19 01/02/20 Rx ipratropium 0.5 mg-albuterol 3 mg 3 ml INHALATION QID PRN #180 ml 11/26/19 01/02/20 Rx (2.5 mg base)/3 mL nebulization soln prednisone 10 mg tablet 10 mg PO DAILY #60 tab 12/02/19 01/02/20 Rx Past Med/Surg History Medical History (Updated 01/03/20 @ 01:18 by Negro Frias MD) Acute respiratory failure with hypoxia ?08/2018 Anxiety Asthma Cancer of right lung S/P CRYOTHERAPY (2015), S/P CHEMO/RADIATION, IMMUNOTHERAPY Cellulitis of left lower extremity (Resolved) Chronic hyponatremia COPD (chronic obstructive pulmonary disease) (Acute) Depression Dysphagia (Inactive) Dyspnea on minimal exertion GERD (gastroesophageal reflux disease) Hemoptysis (Inactive) Hyperlipidemia (Chronic) Hypertension Hypomagnesemia (Inactive) Hypoxia (Inactive) Irritable bowel disease Lung nodules Mediastinal lymphadenopathy Multiple fracture Neutropenia (Inactive) Neutropenic sepsis ? 08/2018 Obesity Pancytopenia Pneumonia ?09/2018 S/P ABX Sepsis (Inactive) Surgical History Difficult intubation LEFT FOOT RECONSTRUCTION: 12/28/16: GLIDESCOPE# [address] [facility] BRONCHOSCOPY; RUL STENT INSERTION: 10/16/18: "ELECTIVE" GLIDESCOPE #3, ETT [address] [facility] History of appendectomy History of bronchoscopy MULTIPLE 12/07/13 - MAC #2, Glidescope #3, ETT #8.0, HiLo Oral History of cataract surgery B/L History of colonoscopy 2017 History of difficult intubation 12/28/16 - Glidescope #3, ETT #7, Oral HiLo, Good View with Glidescope 12/07/13 - MAC #2, Glidescope #3, ETT #8.0, HiLo Oral History of esophagogastroduodenoscopy (EGD) W/ REMOVAL OF FOOD BOLUS 05/18/2019 [facility] Hx of abdominal hysterectomy 1972 Hx of foot surgery 2014 & 2017 - LEFT X2 12/28/16 - Glidescope #3, ETT #7, Oral HiLo, Good View with Glidescope Hx of repair of rotator cuff 2008 - RIGHT Hx of total shoulder replacement 2015 - LEFT 11/14/15 - MAC #3, ETT #7, Oral HiLo, Grade 1 View S/P pulmonary artery branches stent placement STENT PLACED VIA BRONCHOSCOPY 11/13/18, s/p removal 11/10/18 Social History Smoking Status: Never smoker Tobacco Type: Cigarettes Cigarettes Per Day: 1 pack/week; Second Hand Exposure: Yes (hx); Hx Alcohol Use: No Hx Substance Use: No Preferred Language: Latvian Communication Ability: Effective Visual Impairment: No Limitations Hearing Ability: Normal Director Of Event Management Required: No Beliefs That Will Affect Care: None marital status: / Current Living Situation: Family Current Living Situation Comment: lives with mother and sister current occupational status: retired current occupation: Retired from [employer] How many Children do You have: 2 Other Information That Helps Us Care for You: No Feels Safe at Home: Yes Safety Concerns: Feels Safe At This Time caffeine: Yes (1 pot of coffee/day ) Review of Systems Review of Systems: The patient denies palpitations, lower extremity swelling, sore throat, fevers, chills, sweats, nausea, vomiting, diarrhea , constipation, abdominal pain, pelvic pain, blood in urine or stool, dysuria, urinary frequency or urgency, memory loss, loss of consciousness, rash, abnormal bruising or bleeding, imbalance, focal weakness, numbness or tingling in arms or legs, generalized arthralgias or myalgias, back or neck pain, or night sweats. The review of systems is otherwise negative other than for that already noted above, and at least 10 systems have been reviewed. Physical Exam Physical Exam: The patient is awake, alert and oriented 3, well developed and well nourished, normocephalic and atraumatic, lying in bed and in mild acute respiratory distress. HEENT--PERRL, EOMI, mucous membranes and oropharynx dry. Neck--supple. No JVD. No bruits. Thyroid normal, trachea midline, no adenopathy. Heart--normal S1 and S2. No murmurs, rubs or gallops. Lungs-- decreased breath sounds throughout. Mild respiratory distress, no accessory muscle use. Abdomen--normal bowel sounds and soft. Nontender. Nondistended. Extremities--no cyanosis or clubbing. No edema. Dermatologic--normal skin turgor, normal color, no abnormal lymph nodes, no rash. Neurologic--cranial nerves II through XII grossly intact. Rheumatologic--normal range of motion. Psychiatric--normal affect. Results & Data Results & Data ([facility]) Vital Signs (Past 12 Hours) Vital Signs Temp Pulse Resp BP Pulse Ox 01/03/20 04:20 88 21 98 01/03/20 04:10 84 23 98 01/03/20 04:01 82 24 98 01/03/20 04:00 88 25 H 140/83 99 01/03/20 03:50 82 25 H 98 01/03/20 03:40 86 25 H 98 01/03/20 03:31 86 23 98 01/03/20 03:30 84 26 H 137/78 94 01/03/20 03:20 84 22 98 01/03/20 03:10 83 25 H 99 01/03/20 03:02 83 23 98 01/03/20 03:01 81 21 146/84 H 99 01/03/20 03:00 81 22 01/03/20 02:50 83 25 H 99 01/03/20 02:40 79 20 99 01/03/20 02:31 86 22 99 01/03/20 02:30 82 20 140/86 98 01/03/20 02:20 84 21 98 01/03/20 02:10 85 21 99 01/03/20 02:01 85 21 98 01/03/20 02:00 84 20 155/78 H 98 01/03/20 01:50 92 H 21 99 01/03/20 01:40 90 24 99 01/03/20 01:31 86 24 98 01/03/20 01:30 84 21 187/87 H 98 01/03/20 01:20 86 26 H 98 01/03/20 01:10 83 20 98 01/03/20 01:01 83 21 98 01/03/20 01:00 83 28 H 159/90 H 98 01/03/20 00:50 84 26 H 98 01/03/20 00:47 88 28 H 157/88 H 99 01/03/20 00:46 86 29 H 99 01/03/20 00:10 82 20 97 01/03/20 00:01 82 21 97 01/03/20 00:00 84 22 160/92 H 97 01/02/20 23:50 83 27 H 98 01/02/20 23:40 121 H 31 H 94 01/02/20 23:30 82 23 157/84 H 97 01/02/20 23:20 83 27 H 96 01/02/20 23:10 124 H 29 H 95 01/02/20 23:03 88 18 96 01/02/20 23:01 84 20 94 01/02/20 23:00 88 19 160/74 H 95 01/02/20 22:42 98.1 F 84 20 155/76 H 94 Laboratory Results Laboratory Results WBC 9.91 K/uL (4.8-10.8) 01/02/20 22:52 RBC 4.17 M/uL (4.2-5.4) L 01/02/20 22:52 Hgb 13.5 g/dL (12.0-16.0) 01/02/20 22:52 Hct 37.0 % (37-47) 01/02/20 22:52 MCV 88.7 fL (80-100) 01/02/20 22:52 MCH 32.4 pg (25-34) 01/02/20 22:52 MCHC 36.5 g/dL (32-36) H 01/02/20 22:52 RDW Std Deviation 42.2 fL (36.4-46.3) 01/02/20 22:52 RDW Coeff of Filemon 13.1 % (11.5-14.5) 01/02/20:52 Plt Count 225 K/uL (130-400) 01/02/20: MPV 8.5 fL (7.4-10.4) 01/02/20 22: Immature Gran % (Auto) 2.5 % 01/02/20:52 Neut % (Auto) 81.6 % 01/02/20:52 Lymph % (Auto) 6.4 % 01/02/20:52 Morrow % (Auto) 9.2 % 01/02/20 22:52 Eos % (Auto) 0.3 % 01/02/20:52 Baso % (Auto) 0.0 % 01/02/20:52 Neut # (Auto) 8.09 K/uL (1.4-6.5) H 01/02/20 22:52 Lymph # (Auto) 0.63 K/uL (1.2-3.4) L 01/02/20 22:52 Morrow # (Auto) 0.91 K/uL (0.11-0.59) H 01/02/20 22:52 Eos # (Auto) 0.03 K/uL (0-0.5) 01/02/20 22:52 Baso # (Auto) 0.00 K/uL (0-0.2) 01/02/20 22:52 Immature Gran # (Auto) 0.25 K/uL (0.00-0.02) H 01/02/20 22:52 PT 10.7 Seconds (9.0-12.0) 01/02/20 22:52 INR 1.0 (0.9-1.1) 01/02/20 22:52 APTT 20.8 Seconds (21.0-31.0) L 01/02/20 22:52 PTT Ratio 0.7 01/02/20 22:52 Sodium 123 mmol/L (136-145) L 01/02/20 22:52 Potassium 4.1 mmol/L (3.5-5.1) 01/02/20 22:52 Chloride 85 mmol/L (98-107) L 01/02/20 22:52 Carbon Dioxide 26 mmol/L (21-32) 01/02/20 22:52 Anion Gap 11.0 (3-11) 01/02/20 22:52 BUN 17 mg/dl (7-18) 01/02/20:52 Creatinine 1.05 mg/dl (0.6-1.2) 01/02/20 22:52 Est Cr Clr Drug Dosing Not Reportable 01/02/20 22:52 Est GFR ( Amer) 60.6 01/02/20 22:52 Est GFR (Non-Af Amer) 52.3 01/02/20 22:52 BUN/Creatinine Ratio 16.4 (10-20) 01/02/20 22:52 Glucose 154 mg/dl (70-99) H 01/02/20 22:52 Osmolality 267 mOsm/kg (280-300) L 01/03/20 03:12 Calcium 8.9 mg/dl (8.5-10.1) 01/02/20 22:52 Total Bilirubin 0.8 mg/dl (0.2-1) 01/02/20 22:52 AST 18 U/L (15-37) 01/02/20 22:52 ALT 28 U/L (12-78) 01/02/20 22:52 Alkaline Phosphatase 73 U/L (45-117) 01/02/20 22:52 Troponin I < 0.015 ng/ml (0-0.045) 01/02/20 22:52 Total Protein 6.7 gm/dl (6.4-8.2) 01/02/20 22:52 Albumin 3.7 gm/dl (3.4-5.0) 01/02/20 22:52 Globulin 3.0 gm/dl (2.5-4.0) 01/02/20 22:52 Albumin/Globulin Ratio 1.2 (0.9-2) 01/02/20 22:52 Lipase 98 U/L (73-393) 01/02/20 22:52 Diagnostic Findings [facility] Patient: SUKUMAR HI (Female) : 45 Status: ER Date: 01/03/20 00:51 Room #: History: sob hx rt lung ca Slices: [phone] Priors: Tech: Max Isaac @ [phone] Exams: CTA CHEST Contrast: IV Amt: `120 ml optiray Accession Numbers: [id number] Preliminary Findings Only See Final Report For Complete Findings CTA CHEST: Comparison chest CT 11/18/2019 No pulmonary embolism. Postradiation changes in the right lung, unchanged. Few scattered pulmonary nodules mostly within the left lung which are stable to slightly increased in size from the prior study. Left supraclavicular lymph node measuring 3.3 x 2.3 cm. Thickening and nodularity along the medial aspect of the left apex is slightly more pronounced than on the prior. No pneumonia. Unchanged thoracic compression deformities. Radiologist: Krishna Nash MD Study ready at 00:57 and initial results transmitted at 01:37 *This report constitutes a preliminary interpretation only. Non-acute findings felt to be unrelated to the clinical presentation may not be discussed in this report. The study will be interpreted and a final report will be generated by the local Radiologist the following shift. To reach the hospital radiology department call [phone]. If a discrepancy is found between the preliminary and final interpretations of this study, please notify us via our Client Portal at [email or web address], under QA Exams.You can also fax this report with a description of the discrepancy, or include the final report, to our daytime fax number [phone].If faxing, please indicate the severity of discrepancy using one of the following categories: [ ] 1 - Agree/Informational [ ] 2 - Unlikely to Affect Management [ ] 3 - Possible Eventual Change of Management [ ] 4 - Probable Immediate Change of Management For all other patient related information, please fax us at [phone]. [id number] Code Status & VTE Plan Code Status Full code VTE Prophylaxis Plan VTE Prophylaxis will be ordered: Yes PG Care Time/CCT Total # of Minutes Spent Total Time Spent with Patient: Total time spent is greater than 50% in coordination of care (as documented) at patient's floor/unit and/or counseling patient: Coding Level of Care Code 36672 Initial Inpt Care Lvl 3 Diagnoses SOB (shortness of breath) R06.02 COPD exacerbation J44.1 Left-sided chest pain R07.9 Chronic hyponatremia E87.1 HLD (hyperlipidemia) E78.5 Non-small cell carcinoma of lung C34.90 Esophageal reflux K21.9
[2020-01-03] MEDS ORDERED: FUROSEMIDE 40 MG in SYRINGE 0 ML IV ONE (05:15)
--- NOTE | 2020-01-03 07:43 | CT Scan Report ---
CT angio chest PE protocol CT DOSE: 452.45 mGy.cm HISTORY: 74 years-old Female with chest pain, SOB, hx of right lung CA. History of lung cancer with pulmonary metastasis. Acute chest pain with shortness of breath TECHNIQUE: Multiple CTA images of the chest were obtained after the intravenous administration of 120 ml Optiray 320. Coronal and sagittal MIPS were obtained from the axial data set and were submitted for review. All measurements were obtained according to NASCET criteria. A dose lowering technique w as utilized adhering to the principles of ALARA. COMPARISON: CTA chest 11/18/2019 FINDINGS: CTA: Moderate cardiomegaly. Coronary artery calcifications. No thoracic aortic aneurysm or dissection. Mix ed plaque of the thoracic aortic arch and proximal great vessels which appear patent. Descending thor acic aortic tortuosity. The pulmonary arterial tree is opacified to the level of the subsegmental bra nches. Evaluation of the distal branches is limited secondary to respiratory motion artifact. No fill ing defects identified to suggest thromboembolic disease. CT CHEST: Unremarkable thyroid. 7 x 10 mm left supraclavicular lymph node, image 236 series 4. 2.6 x 2.0 cm lef t supraclavicular adenopathy on image 233 series 4 previously measured 1.5 x 1.7 cm. Soft tissue dens ity of the subcarinal distribution is unchanged from comparison and may reflect additional adenopathy versus fibrosis. Right Bochdalek hernia. No pleural effusion. Left hemidiaphragmatic elevation with dependent subsegme ntal left basilar atelectasis. Right perihilar postradiation fibrosis redemonstrated. No pneumothorax or overt pulmonary edema. Multiple left greater than right solid pulmonary nodules compatible with p ulmonary metastasis redemonstrated. Several nodules have increased in size from comparison. For examp le a 9 mm solid nodule of the left lower lobe on image 120 series 4 previously measured 7 mm. A 7 mm solid nodule of the left lower lobe on image 152 series 4 previously measured 6 mm. Central airways a ppear patent. No acute process of the imaged upper abdomen. Tiny hiatal hernia. Soft tissues are unremarkable. Dege nerative changes of the right shoulder and spine. Left shoulder total joint arthroplasty. There is no acute fracture or evidence of osseous metastatic disease. Unchanged remote mid thoracic compression deformities. Multiple healed remote right-sided rib fractures. IMPRESSION: 1. Motion degraded exam. 2. Cardiomegaly without evidence of pulmonary thromboembolic disease. 3. Several of the left greater than right solid pulmonary nodules have increased in size from compari son compatible with progressive pulmonary metastasis. 4. Progression of the metastatic left supraclavicular lymph node. 5. Unchanged right perihilar postradiation fibrosis. 6. Dependent left basilar consolidation with left hemidiaphragmatic elevation suggests atelectasis. ACT 112: Negative or not required by law. The above report was generated using voice recognition software. It may contain grammatical, syntax o r spelling errors. Electronically signed by: Puneet Murguia M.D. 01/03/2020 7:41 AM
[2020-01-03 08:42] LABS: Hematocrit (blood only) 41.5 % (37-47); Hemoglobin 14.9 g/dL (12.0-16.0); Immature Granulocytes # (auto) 0.26 K/uL (0.00-0.02); Lymphocytes # (auto) 0.86 K/uL (1.2-3.4); Lymphocytes % (auto) 6.6 %; Mean Corpuscular Hemoglobin 31.8 pg (25-34); Mean Corpuscular Hgb Conc 35.9 g/dL (32-36); Mean Corpuscular Volume 88.7 fL (80-100); Mean Platelet Volume 9.1 fL (7.4-10.4); Monocytes # (auto) 0.72 K/uL (0.11-0.59); Monocytes % (auto) 5.5 %; Neutrophils # (auto) 11.25 K/uL (1.4-6.5); Neutrophils % (auto) 85.9 %; Platelet Count 305 K/uL (130-400); RDW Coefficient of Variation 13.2 % (11.5-14.5); RDW Standard Deviation 42.7 fL (36.4-46.3); Red Blood Count 4.68 M/uL (4.2-5.4); White Blood Count 13.09 K/uL (4.8-10.8)
--- NOTE | 2020-01-03 08:51 | XRay Report ---
XR chest 1V portable HISTORY: 74 years-old Female Chest Pain acute atypical chest pain COMPARISON: CTA chest of same day, chest radiograph 11/17/2019 TECHNIQUE: Portable AP view of the chest FINDINGS: Cardiac silhouette is mildly enlarged. Unchanged right perihilar opacity with right perihilar fibrosi s. Chronic right lung volume loss. Unchanged blunting of the costophrenic angles. No pneumothorax, la rge pleural effusion or overt pulmonary edema. No airspace consolidation typical for pneumonia. Multi ple scattered left lung subcentimeter nodules redemonstrated. Degenerative changes of the spine and r ight shoulder. Reverse left shoulder total joint arthroplasty. IMPRESSION: 1. Cardiomegaly without acute process. 2. Chronic right perihilar opacity with postradiation fibrosis. 3. Multiple left-sided pulmonary nodules are redemonstrated, better characterized on the CTA chest of same day. ACT 112: Negative or not required by law. The above report was generated using voice recognition software. It may contain grammatical, syntax o r spelling errors. Electronically signed by: Puneet Murguia M.D. 01/03/2020 8:50 AM
[2020-01-03 09:11] LABS: BUN Creatinine Ratio 15.7 (10-20); Calcium 9.8 mg/dl (8.5-10.1); Creatinine Clr Calc Pharmacy 49.1 ml/min; Est GFR (African American) 66.7; Est GFR (Non-African American) 57.5
[2020-01-03] MEDS: ASPIRIN 81 MG ECTAB PO SCH (09:25)
[2020-01-03] MEDS: FEXOFENADINE 60 MG TAB PO SCH ×2 (09:25→21:05)
[2020-01-03] MEDS: PANTOprazole 40 MG TAB PO SCH ×2 (09:25→21:03)
[2020-01-03] MEDS: PARoxetine HCL 20 MG TAB PO SCH (09:25)
[2020-01-03] MEDS: TRIAMCINOLONE ACET NASAL SPRAY 10.8ML BTL NAE SCH (09:26)
[2020-01-03] MEDS: AZITHROMYCIN 500 MG in DEXTROSE 5% 250 ML IV SCH (09:28)
[2020-01-03] MEDS: SODIUM CHLORIDE 1 GM TABLET PO SCH ×2 (11:40→21:04)
[2020-01-03] MEDS ORDERED: CARBOHYDRATES FOR HYPOGLYCEMIA PO PRN (12:30)
[2020-01-03] MEDS ORDERED: DEXTROSE 50% 50 ML SYRINGE IV PRN (12:30)
[2020-01-03] MEDS ORDERED: GLUCOSE 40% GEL 15 GM TUBE PO PRN (12:30)
[2020-01-03] MEDS ORDERED: GLUCAGON FOR INJ 1 MG VIAL IM PRN (12:30)
[2020-01-03] MEDS ORDERED: GLUCOSE 10 TABS/TUBE PO PRN (12:30)
[2020-01-03] MEDS: INSULIN ASPART 100 UNITS/ML 3 ML PEN SC SCH ×3 (12:56→21:04)
[2020-01-03] MEDS: methylPREDNISolone 40 MG in SYRINGE 0 ML IV SCH ×2 (12:59→21:03)
[2020-01-03] MEDS: ATORVASTATIN 20 MG TAB PO SCH (21:04)
[2020-01-04] MEDS: ACETAMINOPHEN 325 MG TAB PO PRN ×3 (01:33→20:10)
[2020-01-04] MEDS: methylPREDNISolone 40 MG in SYRINGE 0 ML IV SCH ×3 (06:03→21:07)
[2020-01-04 06:57] LABS: Hematocrit (blood only) 36.6 % (37-47); Hemoglobin 13.2 g/dL (12.0-16.0); Immature Granulocytes % (auto) 0.7 %; Lymphocytes # (auto) 0.48 K/uL (1.2-3.4); Lymphocytes % (auto) 3.5 %; Mean Corpuscular Hemoglobin 32.1 pg (25-34); Mean Corpuscular Hgb Conc 36.1 g/dL (32-36); Mean Corpuscular Volume 89.1 fL (80-100); Mean Platelet Volume 8.4 fL (7.4-10.4); Monocytes # (auto) 0.68 K/uL (0.11-0.59); Monocytes % (auto) 4.9 %; Neutrophils # (auto) 12.64 K/uL (1.4-6.5); Neutrophils % (auto) 90.9 %; Platelet Count 228 K/uL (130-400); RDW Coefficient of Variation 12.9 % (11.5-14.5); RDW Standard Deviation 41.4 fL (36.4-46.3); Red Blood Count 4.11 M/uL (4.2-5.4)
[2020-01-04 07:06] LABS: INR 1.1 (0.9-1.1); Partial Thromboplastin Ratio 0.8; Partial Thromboplastin Time 23.3 Seconds (21.0-31.0); Prothrombin Time 11.4 Seconds (9.0-12.0)
[2020-01-04 07:34] LABS: Albumin Level 3.4 gm/dl (3.4-5.0); BUN Creatinine Ratio 21.8 (10-20); Calcium 8.7 mg/dl (8.5-10.1); Creatinine Clr Calc Pharmacy 53.4 ml/min; Est GFR (Non-African American) 63.8; Potassium 4.6 mmol/L (3.5-5.1)
[2020-01-04 07:36] LABS: Albumin Globulin Ratio 1.1 (0.9-2); Bilirubin,Total 0.7 mg/dl (0.2-1); Total Protein 6.4 gm/dl (6.4-8.2)
[2020-01-04] MEDS: AZITHROMYCIN 500 MG in DEXTROSE 5% 250 ML IV SCH (09:17)
[2020-01-04] MEDS: FEXOFENADINE 60 MG TAB PO SCH ×2 (09:17→20:21)
[2020-01-04] MEDS: SODIUM CHLORIDE 1 GM TABLET PO SCH ×2 (09:18→20:21)
[2020-01-04] MEDS: PARoxetine HCL 20 MG TAB PO SCH (09:18)
[2020-01-04] MEDS: ASPIRIN 81 MG ECTAB PO SCH (09:18)
[2020-01-04] MEDS: PANTOprazole 40 MG TAB PO SCH ×2 (09:18→20:21)
[2020-01-04] MEDS: INSULIN ASPART 100 UNITS/ML 3 ML PEN SC SCH ×4 (09:19→20:21)
[2020-01-04] MEDS: INSULIN GLARGINE SOLOSTAR 100 UNITS/ML 3 ML PEN SC SCH (09:20)
[2020-01-04] MEDS: TRIAMCINOLONE ACET NASAL SPRAY 10.8ML BTL NAE SCH (09:21)
--- NOTE | 2020-01-04 13:10 | Hospitalist Progress Note ---
Date of Service January 04, 2020 Assessment & Plan (1) Acute respiratory failure with hypoxia: 2nd COPD exacerbation and suspected acute diastolic CHF. (2) COPD exacerbation: cont IV steroids. add nebs q4h. add flutter valve and incentive lane. cont zithromax. no discrete pneumonia on cxr today or CTA chest from admission. no PE on CTA either. uses NC o2 at home just at night-time. (3) Acute diastolic CHF (congestive heart failure): patient with JVD on exam today. give additional IV lasix. BMP am. consider echo. (4) Chronic hyponatremia: baseline about 130. 123 at admission. placed on salt tabs at admission with improvement along with diuresis. repeat BMP am. suspect multifactorial etiology. (5) Ileus: clinically and radiographically on abd x-rays today. keep mag/K wnl. dulcolax suppos x 1. etiology?? (6) Hypertension: cont home meds (7) Anxiety: xanax prn (8) Esophageal reflux: PPI (9) Non-small cell carcinoma of lung: follows with Dr Pulido CT this admission shows progression of disease since early November despite immune- based therapy will consult Dr Pulido for recommendations need for palliative care?? (10) Prediabetes: uncontrolled in face of steroids add lantus cont novolog adjust as necessary (11) Chronic kidney disease, stage 3a: Cr stable today BMP am (12) DVT prophylaxis: add lovenox will need PT/OT daughter updated on phone today Admission and Anticipated Discharge Date Admission Date: January 03, 2020 Subjective tele overnight wnl. patient c/o dyspnea at rest, dyspnea with exertion, headache, and abdominal discomfort. abd discomfort is left-sided. feels bloated. appetite at lunch was poor due to GI symptoms. she has minimal cough. no vomiting. no diarrhea. Review of Systems Constitutional: + fatigue and + anorexia; no fever and no chills Ear, Nose, Mouth, Throat: no nasal congestion Respiratory: + cough, + dyspnea, + dyspnea on exertion and + wheezing Cardiovascular: no chest pain and no orthopnea Gastrointestinal: as per Subjective / HPI, + abdominal pain and + bloating Physical Exam Constitutional: no acute distress and no altered mental status ENMT: external ear and nose normal, oropharynx normal Respiratory: no respiratory distress Auscultation: + wheezes; no crackles Cardiovascular: Rate/Rhythm: regular rate and regular rhythm Heart Sounds: normal S1 and normal S2; no murmur Vessels: + JVD; + posterior tibial pulses abnormal and + dorsalis pedis pulses abnormal Extremities: no edema Gastrointestinal (Abdomen): Inspection/Auscultation: + abdomen distended and normal bowel sounds Percussion/Palpation: abdomen nontender, no guarding and no hepatosplenomegaly Psychiatric: A+Ox3, euthymic affect Results & Data Results & Data ([facility]) Vital Signs (Past 12 Hours) Vital Signs Temp Pulse Pulse Resp BP Pulse Ox 01/04/20 11:59 37.0 C 76 16 158/79 H 98 01/04/20 08:00 82 01/04/20 07:53 36.8 C 84 18 166/86 H 96 01/04/20 04:00 36.5 C 81 20 174/82 H 97 Laboratory Results Laboratory Results - last 24 hr 01/04/20 01/04/20 01/04/20 06:47 06:47 06:47 WBC 13.90 H RBC 4.11 L Hgb 13.2 Hct 36.6 L MCV 89.1 MCH 32.1 MCHC 36.1 H RDW Std Deviation 41.4 RDW Coeff of Filemon 12.9 Plt Count 228 MPV 8.4 Immature Gran % (Auto) 0.7 Neut % (Auto) 90.9 Lymph % (Auto) 3.5 Grant % (Auto) 4.9 Eos % (Auto) 0.0 Baso % (Auto) 0.0 Neut # (Auto) 12.64 H Lymph # (Auto) 0.48 L Grant # (Auto) 0.68 H Eos # (Auto) 0.00 Baso # (Auto) 0.00 Immature Gran # (Auto) 0.10 H PT 11.4 INR 1.1 APTT 23.3 PTT Ratio 0.8 Sodium 125 L Potassium 4.6 Chloride 88 L Carbon Dioxide 32 Anion Gap 6.0 BUN 19 H Creatinine 0.89 Est Cr Clr Drug Dosing 53.4 Est GFR ( Amer) 74.0 Est GFR (Non-Af Amer) 63.8 BUN/Creatinine Ratio 21.8 H Glucose 149 H POC Glucose Calcium 8.7 Magnesium 2.0 Total Bilirubin 0.7 AST 10 L ALT 25 Alkaline Phosphatase 63 Total Protein 6.4 Albumin 3.4 Globulin 3.0 Albumin/Globulin Ratio 1.1 01/04/20 01/04/20 01/04/20 07:15 11:16 16:29 WBC RBC Hgb Hct MCV MCH MCHC RDW Std Deviation RDW Coeff of Filemon Plt Count MPV Immature Gran % (Auto) Neut % (Auto) Lymph % (Auto) Grant % (Auto) Eos % (Auto) Baso % (Auto) Neut # (Auto) Lymph # (Auto) Grant # (Auto) Eos # (Auto) Baso # (Auto) Immature Gran # (Auto) PT INR APTT PTT Ratio Sodium Potassium Chloride Carbon Dioxide Anion Gap BUN Creatinine Est Cr Clr Drug Dosing Est GFR ( Amer) Est GFR (Non-Af Amer) BUN/Creatinine Ratio Glucose POC Glucose 159 H 215 H 182 H Calcium Magnesium Total Bilirubin AST ALT Alkaline Phosphatase Total Protein Albumin Globulin Albumin/Globulin Ratio 01/04/20 19:39 WBC RBC Hgb Hct MCV MCH MCHC RDW Std Deviation RDW Coeff of Filemon Plt Count MPV Immature Gran % (Auto) Neut % (Auto) Lymph % (Auto) Grant % (Auto) Eos % (Auto) Baso % (Auto) Neut # (Auto) Lymph # (Auto) Grant # (Auto) Eos # (Auto) Baso # (Auto) Immature Gran # (Auto) PT INR APTT PTT Ratio Sodium Potassium Chloride Carbon Dioxide Anion Gap BUN Creatinine Est Cr Clr Drug Dosing Est GFR ( Amer) Est GFR (Non-Af Amer) BUN/Creatinine Ratio Glucose POC Glucose 233 H Calcium Magnesium Total Bilirubin AST ALT Alkaline Phosphatase Total Protein Albumin Globulin Albumin/Globulin Ratio PG Care Time/CCT Total # of Minutes Spent Total Time Spent with Patient: Total time spent is greater than 50% in coordination of care (as documented) at patient's floor/unit and/or counseling patient: Coding Level of Care Code 44590 Subseq Hosp Care Lvl 3 Diagnoses Acute respiratory failure with hypoxia J96.01 COPD exacerbation J44.1 Acute diastolic CHF (congestive heart failure) I50.31 Chronic hyponatremia E87.1 Ileus K56.7 Hypertension I10 Anxiety F41.9 Esophageal reflux K21.9 Non-small cell carcinoma of lung C34.90 Prediabetes R73.03 Chronic kidney disease, stage 3a N18.3 DVT prophylaxis Z29.9
--- NOTE | 2020-01-04 13:35 | Electrocardiogram Report ---
Test Reason : Blood Pressure : / mmHG Vent. Rate : 087 BPM Atrial Rate : 087 BPM P-R Int : 160 ms QRS Dur : 076 ms QT Int : 358 ms P-R-T Axes : 052 -08 048 degrees QTc Int : 430 ms Poor data quality, interpretation may be adversely affected Sinus rhythm with Premature atrial complexes Possible Left atrial enlargement Borderline ECG When compared with ECG of 17-NOV-2019 11:56, Premature atrial complexes are now Present Confirmed by Jovanny Reyes ([id number]) on 01/04/2020 1:34:38 PM Referred By: REFERRED SELF Confirmed By:Jovanny Reyes
[2020-01-04] MEDS: ALBUT/IPRATROP 3MG/0.5MG NEB 3 ML VIAL NEB SCH ×4 (14:18→23:03)
--- NOTE | 2020-01-04 14:19 | XRay Report ---
XR abdomen 2V w PA chest CLINICAL HISTORY: dyspnea; abd bloating pain COMPARISON STUDY: 01/02/2020 FINDINGS: Small left pleural effusion unchanged. Right hilar fibrotic nodular type changes are unalte red from the prior exam. The pulmonary nodularity is stable. Bowel pattern is considered consistent with that of a generalized nonobstructive ileus. Several air-f luid levels are noted in the colon as well as small bowel. Potential disruption of the patient's left shoulder prosthetic versus positional change. IMPRESSION: 1. No acute process of the chest. 2. Potential disruption of the patient's total left shoulder prosthetic versus positional artifactual change. 3. Specific images of the left shoulder are recommended. 4. Pre-existing left pulmonary nodularity is noted. ACT 112: Negative or not required by law. The above report was generated using voice recognition software. It may contain grammatical, syntax or spelling errors. Electronically signed by: Eugene Foreman M.D. 01/04/2020 2:18 PM
[2020-01-04] MEDS ORDERED: bisacodyL 10 MG SUPP PR STA (15:23)
[2020-01-04] MEDS ORDERED: FUROSEMIDE 20 MG in SYRINGE 0 ML IV ONE (16:00)
[2020-01-04] MEDS: ATORVASTATIN 20 MG TAB PO SCH (20:21)
[2020-01-05] MEDS: ALBUT/IPRATROP 3MG/0.5MG NEB 3 ML VIAL NEB SCH ×6 (02:48→22:36)
[2020-01-05] MEDS: ACETAMINOPHEN 325 MG TAB PO PRN ×3 (03:33→21:42)
[2020-01-05] MEDS: methylPREDNISolone 40 MG in SYRINGE 0 ML IV SCH ×3 (05:57→21:35)
[2020-01-05] MEDS ORDERED: STAT IV Infusion **Titration per Protocol STA ×2 (07:55→14:41)
[2020-01-05] MEDS ORDERED: dilTIAZem HCl 5 MG/ML 5 ML VIAL IV STA (07:55)
[2020-01-05] MEDS ORDERED: dilTIAZem HCl 5 MG/ML 5 ML VIAL IV ONE (07:59)
[2020-01-05] MEDS ORDERED: dilTIAZem HCL 125 MG in DEXTROSE 5% 100 ML IV SCH (08:00)
[2020-01-05] MEDS: ASPIRIN 81 MG ECTAB PO SCH (08:24)
[2020-01-05] MEDS: PARoxetine HCL 20 MG TAB PO SCH (08:24)
[2020-01-05] MEDS: FEXOFENADINE 60 MG TAB PO SCH ×2 (08:24→21:35)
[2020-01-05] MEDS: SODIUM CHLORIDE 1 GM TABLET PO SCH (08:24)
[2020-01-05] MEDS: PANTOprazole 40 MG TAB PO SCH ×2 (08:24→21:36)
[2020-01-05] MEDS: TRIAMCINOLONE ACET NASAL SPRAY 10.8ML BTL NAE SCH (08:25)
[2020-01-05] MEDS: INSULIN GLARGINE SOLOSTAR 100 UNITS/ML 3 ML PEN SC SCH (08:25)
[2020-01-05] MEDS: INSULIN ASPART 100 UNITS/ML 3 ML PEN SC SCH ×4 (08:26→21:37)
[2020-01-05] MEDS: AZITHROMYCIN 500 MG in DEXTROSE 5% 250 ML IV SCH (08:59)
[2020-01-05 09:24] LABS: BUN Creatinine Ratio 21.3 (10-20); Calcium 8.6 mg/dl (8.5-10.1); Est GFR (African American) 68.4; Potassium 3.7 mmol/L (3.5-5.1)
--- NOTE | 2020-01-05 11:10 | Hospitalist Progress Note ---
Date of Service January 05, 2020 Assessment & Plan (1) SIADH (syndrome of inappropriate ADH production): acute/chronic hyponatremia likely due to SIADH from lung ca. acute hyponatremia worse overnight urine and serum studies most c/w SIADH. TSH wnl. deferred on cortisol due to steroid use. nephrology consult requested for assistance w/ management. tolvaptan started. repeated Na tonight and in am. goal is ~130 (baseline) for her. salt tabs d/c by nephrology. (2) Atrial fibrillation with rapid ventricular response: appreciate cardiology consultation. rate control recommended. start eliquis 5mg BID. echo noted with preserved EF. K/mag wnl. CCB to be increased. no anti-arrhythmic for now. cont telemetry. (3) Chronic hyponatremia: acute/chronic. baseline about 130. 123 at admission. now 119. see discussion above in "SIADH." (4) Acute respiratory failure with hypoxia: 2nd COPD exacerbation and suspected acute diastolic CHF. latter resolved. (5) COPD exacerbation: ongoing but slowly improving. cont IV steroids. no wean on them today. cont nebs q4h. cont flutter valve and incentive lane. cont abx - change to doxy from zithromax. no discrete pneumonia on cxr or CTA chest from admission. no PE on CTA either. uses NC o2 at home just at night-time. (6) Acute diastolic CHF (congestive heart failure): resolved clinically. echo findings noted. no further lasix today. (7) Ileus: clinically and radiographically. slowly improving. etiology uncertain. encourage ambulation. (8) Hypertension: cont home meds (9) Anxiety: xanax prn (10) Esophageal reflux: PPI (11) Non-small cell carcinoma of lung: follows with Dr Pulido CT this admission shows progression of disease since early November despite immune- based therapy will consult Dr Pulido for recommendations patient and daughter aware of CT findings will d/w Dr Pulido poor prognosis (12) Prediabetes: uncontrolled in face of steroids adjust novolog and lantus (13) Chronic kidney disease, stage 3a: Cr stable today BMP am (14) DVT prophylaxis: stop lovenox since changing to PO eliquis for PAF PT/OT daughter updated at bedside today Admission and Anticipated Discharge Date Admission Date: January 03, 2020 Subjective patient sitting in chair this am thinks breathing is a "bit better" today is tired/fatigued flipped into rapid asharon this am; lasted 60-90 minutes - didn't necessarily feel it; converted back to NSR then add additional brief run of PAF which self-converted daughter at bedside; we discussed the CT results showing progressive lung cancer pt and daughter tearful Review of Systems Constitutional: + fatigue; no fever, no chills and no anorexia Respiratory: + cough, + dyspnea and + dyspnea on exertion; no hemoptysis and no sputum production Cardiovascular: no chest pain Gastrointestinal: + bloating (not passing much flatus ); no abdominal pain, no nausea and no vomiting Physical Exam Constitutional: no acute distress and no altered mental status ENMT: external ear and nose normal, oropharynx normal Respiratory: no respiratory distress Auscultation: + wheezes (better airation today ); no crackles Cardiovascular: Rate/Rhythm: regular rate and regular rhythm Heart Sounds: normal S1 and normal S2; no murmur Vessels: no JVD, + posterior tibial pulses abnormal and + dorsalis pedis pulses abnormal Extremities: no edema Gastrointestinal (Abdomen): Inspection/Auscultation: + abdomen distended (mild improvement from yesterday) and normal bowel sounds Percussion/Palpation: abdomen nontender, no guarding and no hepatosplenomegaly Psychiatric: Orientation: alert and oriented x 3 Affect: + tearful affect Results & Data Results & Data ([facility]) Vital Signs (Past 12 Hours) Vital Signs Temp Pulse Pulse Resp BP BP Pulse Ox 01/05/20 08:36 122 H 132/85 01/05/20 08:00 165 H 134/80 01/05/20 07:53 36.6 C 91 H 19 155/75 H 95 01/05/20 07:11 89 16 98 01/05/20 03:38 36.3 C L 90 22 145/75 H 93 01/04/20 23:42 36.5 C 93 H 22 146/71 H 92 Laboratory Results Laboratory Results - last 24 hr 01/04/20 01/04/20 01/04/20 11:16 16:29 19:39 Sodium Potassium Chloride Carbon Dioxide Anion Gap BUN Creatinine Est Cr Clr Drug Dosing Est GFR ( Amer) Est GFR (Non-Af Amer) BUN/Creatinine Ratio Glucose POC Glucose 215 H 182 H 233 H Osmolality Uric Acid Calcium Magnesium Urine Osmolality Ur Random Sodium 01/05/20 01/05/20 01/05/20 06:33 06:53 08:02 Sodium 119 L* Potassium 3.7 D Chloride 83 L Carbon Dioxide 28 Anion Gap 8.0 BUN 20 H Creatinine 0.95 Est Cr Clr Drug Dosing 50.0 Est GFR ( Amer) 68.4 Est GFR (Non-Af Amer) 59.0 BUN/Creatinine Ratio 21.3 H Glucose 184 H POC Glucose 187 H Osmolality Uric Acid Calcium 8.6 Magnesium 2.1 Urine Osmolality Ur Random Sodium 01/05/20 01/05/20 01/05/20 10:26 10:26 10:30 Sodium Potassium Chloride Carbon Dioxide Anion Gap BUN Creatinine Est Cr Clr Drug Dosing Est GFR ( Amer) Est GFR (Non-Af Amer) BUN/Creatinine Ratio Glucose POC Glucose Osmolality Pending Uric Acid 4.5 Calcium Magnesium Urine Osmolality Pending Ur Random Sodium 01/05/20 10:30 Sodium Potassium Chloride Carbon Dioxide Anion Gap BUN Creatinine Est Cr Clr Drug Dosing Est GFR ( Amer) Est GFR (Non-Af Amer) BUN/Creatinine Ratio Glucose POC Glucose Osmolality Uric Acid Calcium Magnesium Urine Osmolality Ur Random Sodium Pending PG Care Time/CCT Total # of Minutes Spent Total Time Spent with Patient: Total time spent is greater than 50% in coordination of care (as documented) at patient's floor/unit and/or counseling patient: Coding Level of Care Code 99494 Subseq Hosp Care Lvl 3 Diagnoses SIADH (syndrome of inappropriate ADH production) E22.2 Atrial fibrillation with rapid ventricular response I48.91 Chronic hyponatremia E87.1 Acute respiratory failure with hypoxia J96.01 COPD exacerbation J44.1 Acute diastolic CHF (congestive heart failure) I50.31 Ileus K56.7 Hypertension I10 Anxiety F41.9 Esophageal reflux K21.9 Non-small cell carcinoma of lung C34.90 Prediabetes R73.03 Chronic kidney disease, stage 3a N18.3 DVT prophylaxis Z29.9
--- NOTE | 2020-01-05 11:59 | Nephrology Consultation ---
Date of Consultation January 05, 2020 Assessment & Plan (1) Hyponatremia: * Hypoosmolar hyponatremia. Clinically euvolemic. No significant thyroid abnormality. Preserved kidney function. Hyponatremia may be related to ADH release associated w/ underlying lung CA. Urine osmolality is > 500. Patient is asymptomatic and able to take oral medications. Will provide Tolvaptan 15 mg po x1 today and monitor serum sodium (2) Non-small cell carcinoma of lung: * On immunotherapy as per Dr. Pulido (3) COPD exacerbation: * On steroid and bronchodilator therapy * Hyperglycemia related to steroid therapy is making a small contribution to hyponatremia (4) Tachycardia: * On Diltiazem gtt for rate control * Diltiazem can reduce hepatic metabolism of Tolvaptan when used custodial. Expect Tolvaptan therapy to be brief. Will monitor serum sodium closely History of Present Illness Reason for Consultation: Hyponatremia Attending Physician: Serge De La Vega History of Present Illness Ms. Miramontes is a 74 year old white female who is seen at the request of Dr. De La Vega for evaluation of hyponatremia. Medical records in the EMR were reviewed today and are summarized as follows: Ms. Miramontes is a former smoker. She has nonsmall cell carcinoma of the R lung. Her Oncologist is Dr. Pulido. She has undergone cryotherapy, chemotherapy and radiation therapy in the past. She is currently on immunotherapy (Oncology notes not currently available). Ms. Miramontes has had chronic hyponatremia w/ serum sodium 130 - 135 mmol/L since October 2018. Her medical history is also significant for COPD, hyperlipidemia, GERD, HTN and depression. Ms. Miramontes was admitted to [facility] 01/03/20 for evaluation of dyspnea and L sided chest discomfort. She is being treated for a COPD exacerbation. She also developed SVT and is now on a Diltiazem gtt. Her serum sodium has progressively dropped from 125 to 119 mmol/L. Ms. Miramontes is alert & oriented x3. She denies BENAVIDES or weakness. She is able to take oral medications. Ms. Miramontes is clinically euvolemic. TSH was mildly low. Serum osmolality was 268 and urine osmolality is markedly elevated at 590. Creatinine is normal at 0.95. Patient has developed hyperglycemia in response to steroid therapy. Serum glucose is 311. Patient has not been taking a thiazide diuretic. Allergies Allergy/AdvReac Type Severity Reaction Status Date / Time hydrochlorothiazide AdvReac Intermediate DIZZY, Verified 01/02/20 23:03 "LOOPY" FEELING Home Medications Home Medications Medication Instructions Recorded Confirmed Type alprazolam 0.25 mg PO Q12 PRN 03/27/18 01/02/20 History aspirin 81 mg PO QAM 03/27/18 01/02/20 History atorvastatin 20 mg PO HS 03/27/18 01/02/20 History lansoprazole [Prevacid] 15 mg PO BID 04/02/19 01/02/20 History losartan [Cozaar] 50 mg PO QAM 04/02/19 01/02/20 History multivitamin 1 tab PO QAM 04/02/19 01/02/20 History paroxetine HCl 20 mg PO QAM 04/02/19 01/02/20 History albuterol sulfate 90 mcg/actuation 2 puffs INH Q6H PRN #18 gm 07/09/19 01/02/20 Rx aerosol inhaler budesonide-formoterol HFA 160 1 puff INHALATION BID #1 gm 07/09/19 01/02/20 Rx mcg-4.5 mcg/actuation aerosol inhaler diltiazem HCl [DILT-XR] 180 mg PO QAM 11/17/19 01/02/20 History fexofenadine 60 mg PO BID #30 tab 11/20/19 01/02/20 Rx triamcinolone acetonide [Nasacort] 2 spray BRIGID DAILY #1 inhaler 11/20/19 01/02/20 Rx prednisone 10 mg tablet 10 mg PO DAILY #60 tab 12/02/19 01/02/20 Rx ipratropium 0.5 mg-albuterol 3 mg 3 ml INHALATION QID PRN #180 ml 01/04/20 Rx (2.5 mg base)/3 mL nebulization soln Patient History Medical History (Updated 01/05/20 @ 12:27 by Vasiliy Encinas MD) Acute respiratory failure with hypoxia ?08/2018 Anxiety Asthma Cancer of right lung S/P CRYOTHERAPY (2014), S/P CHEMO/RADIATION, IMMUNOTHERAPY Cellulitis of left lower extremity (Resolved) Chronic hyponatremia COPD (chronic obstructive pulmonary disease) (Acute) Depression Dysphagia (Inactive) Dyspnea on minimal exertion GERD (gastroesophageal reflux disease) Hemoptysis (Inactive) Hyperlipidemia (Chronic) Hypertension Hypomagnesemia (Inactive) Hypoxia (Inactive) Irritable bowel disease Lung nodules Mediastinal lymphadenopathy Multiple fracture Neutropenia (Inactive) Neutropenic sepsis ? 08/2018 Obesity Pancytopenia Pneumonia ?09/2018 S/P ABX Sepsis (Inactive) Surgical History Difficult intubation LEFT FOOT RECONSTRUCTION: 12/28/16: GLIDESCOPE# 3 ETT 7.0 AT [facility] BRONCHOSCOPY; RUL STENT INSERTION: 10/16/18: "ELECTIVE" GLIDESCOPE #3, ETT 8.0 AT [facility] History of appendectomy History of bronchoscopy MULTIPLE 12/07/13 - MAC #2, Glidescope #3, ETT #8.0, HiLo Oral History of cataract surgery B/L History of colonoscopy 2017 History of difficult intubation 12/28/16 - Glidescope #3, ETT #7, Oral HiLo, Good View with Glidescope 12/07/13 - MAC #2, Glidescope #3, ETT #8.0, HiLo Oral History of esophagogastroduodenoscopy (EGD) W/ REMOVAL OF FOOD BOLUS 05/18/2019 [facility] Hx of abdominal hysterectomy 1972 Hx of foot surgery 2014 & 2017 - LEFT X2 12/28/16 - Glidescope #3, ETT #7, Oral HiLo, Good View with Glidescope Hx of repair of rotator cuff 2008 - RIGHT Hx of total shoulder replacement 2015 - LEFT 11/14/15 - MAC #3, ETT #7, Oral HiLo, Grade 1 View S/P pulmonary artery branches stent placement STENT PLACED VIA BRONCHOSCOPY 11/13/18, s/p removal 11/10/18 Social History Smoking Status: Never smoker Tobacco Type: Cigarettes Cigarettes Per Day: 1 pack/week; Second Hand Exposure: Yes (hx); Hx Alcohol Use: No Hx Substance Use: No Preferred Language: Kiswahili Communication Ability: Effective Visual Impairment: No Limitations Hearing Ability: Normal [employer] Required: No Beliefs That Will Affect Care: None marital status: / Current Living Situation: Family Current Living Situation Comment: lives with mother and sister current occupational status: retired current occupation: Retired from [employer] How many Children do You have: 2 Other Information That Helps Us Care for You: No Feels Safe at Home: Yes Safety Concerns: Feels Safe At This Time caffeine: Yes (1 pot of coffee/day ) Review of Systems Constitutional: no fever Eyes: no problem reported Ear, Nose, Mouth, Throat: no problem reported Respiratory: + dyspnea; no cough Cardiovascular: + chest pain and + palpitations; no edema Gastrointestinal: no abdominal pain and no diarrhea/loose stools Genitourinary: no dysuria and no hematuria Musculoskeletal: no back pain Integumentary: no rash Neurologic: no falls, no dizziness and no confusion Physical Exam Constitutional: not in distress Eyes: PERRL, conjunctivae normal, anicteric sclerae ENMT: external ear and nose normal, oropharynx normal Neck: trachea midline, no thyromegaly Respiratory: Auscultation: + rhonchi and + wheezes Cardiovascular: RRR, no murmur, no edema Gastrointestinal (Abdomen): normal bowel sounds, soft, nontender, no hepatosplenomegaly Musculoskeletal: Extremities: no cyanosis Skin: no rashes, warm and dry Neurologic: awake; not confused Results & Data Vital Signs (Past 12 Hours) Vital Signs Temp Pulse Pulse Resp BP BP Pulse Ox 01/05/20 11:55 36.6 C 76 20 117/67 95 01/05/20 11:12 84 18 94 01/05/20 08:36 122 H 132/85 01/05/20 08:00 165 H 134/80 01/05/20 07:53 36.6 C 91 H 19 155/75 H 95 01/05/20 07:11 89 16 98 01/05/20 03:38 36.3 C L 90 22 145/75 H 93 Laboratory Results Laboratory Tests 12/31/19 01/04/20 01/05/20 10:08 06:47 08:02 WBC 13.90 H Hgb 13.2 Hct 36.6 L Plt Count 228 Sodium 119 L* Potassium 3.7 D Chloride 83 L Carbon Dioxide 28 BUN 20 H Creatinine 0.95 Glucose 184 H POC Glucose Osmolality TSH 0.261 L Urine Osmolality Ur Random Sodium 01/05/20 01/05/20 01/05/20 10:26 10:30 10:30 WBC Hgb Hct Plt Count Sodium Potassium Chloride Carbon Dioxide BUN Creatinine Glucose POC Glucose Osmolality 268 L TSH Urine Osmolality 590 Ur Random Sodium 10 01/05/20 01/05/20 11:42 11:43 WBC Hgb Hct Plt Count Sodium Potassium Chloride Carbon Dioxide BUN Creatinine Glucose POC Glucose 311 H* 302 H* Osmolality TSH Urine Osmolality Ur Random Sodium PG Care Time/CCT Total # of Minutes Spent Total Time Spent with Patient: Total time spent is greater than 50% in coordination of care (as documented) at patient's floor/unit and/or counseling patient: Coding Level of Care Code 31991 Inpt Consult Level 5 Diagnoses Hyponatremia E87.1 Non-small cell carcinoma of lung C34.90 COPD exacerbation J44.1 Tachycardia R00.0
[2020-01-05] MEDS: TOLVAPTAN 15 MG TABLET PO SCH (13:15)
--- NOTE | 2020-01-05 16:18 | Cardiology Consultation ---
Date of Consultation January 05, 2020 Assessment & Plan (1) Atrial fibrillation with rapid ventricular response: She has intermittent episodes of atrial fibrillation, the rate is somewhat fast and she does have some symptoms during it I think although she is not clear about that. I wonder if she had some sort of atrial arrhythmia in the past for which she is on diltiazem. My thought would be to try rate control at least as an initial strategy, I am going to increase her diltiazem to 240 mg daily starting tomorrow morning. Her blood pressure is high for the most part and it may help with that as well. If that does not work to control the rate we could add digoxin. I will avoid beta-blockade due to her COPD although she may tolerate it if needed. (2) Chest pain: She had an atypical type chest discomfort on presentation and negative cardiac enzymes, I doubt she has ischemic heart disease. I am going to repeat a troponin just to make sure that it remains negative. History of Present Illness Reason for Consultation: Paroxysmal atrial fibrillation Attending Physician: Serge De La Vega History of Present Illness This is a 74-year-old woman who has a history of COPD, hypertension, hyperlipidemia and non-small cell lung cancer. She has had admissions for exacerbation of COPD. She presented on January 03, 2020 which shortness of breath which appeared to be due to an exacerbation of COPD. She was hyponatremic, which apparently is chronic. She was also complaining of some intermittent chest discomfort. She had no evidence of acute ischemia on electrocardiography, nitroglycerin ointment was applied and the chest discomfort was evidently relieved in the emergency room. Her initial electrocardiogram on January 04, 2020 at 2008 showed sinus rhythm with slight inferior ST elevation, however that is present on prior electrocardiograms as well. Another electrocardiogram done a little over 2 hours later showed atrial fibrillation with a heart rate of 109 bpm with no inferior ST-T abnormalities. Another electrocardiogram done this morning at 818 shows atrial fibrillation with a heart rate of [address] elevation. Another electrocardiogram done an hour later shows sinus rhythm with PVCs, the inferior ST elevation is present. She had one troponin done on January 02, 2020 at 2252 which was negative. I do not see any more. At the time my evaluation she was feeling well. She has a very flat affect. She was unable to tell me whether she was confident that she felt the atrial fibrillation, she thought she might have but was not sure. When asked why she was on diltiazem she told me she was put on it to regulate her heartbeat and she is not sure who put her on it. She does not think she ever had atrial fibrillation before, and does not recognize the term. Allergies Allergy/AdvReac Type Severity Reaction Status Date / Time hydrochlorothiazide AdvReac Intermediate DIZZY, Verified 01/02/20 23:03 "LOOPY" FEELING Home Medications Home Medications Medication Instructions Recorded Confirmed Type alprazolam 0.25 mg PO Q12 PRN 03/27/18 01/02/20 History aspirin 81 mg PO QAM 03/27/18 01/02/20 History atorvastatin 20 mg PO HS 03/27/18 01/02/20 History lansoprazole [Prevacid] 15 mg PO BID 04/02/19 01/02/20 History losartan [Cozaar] 50 mg PO QAM 04/02/19 01/02/20 History multivitamin 1 tab PO QAM 04/02/19 01/02/20 History paroxetine HCl 20 mg PO QAM 04/02/19 01/02/20 History albuterol sulfate 90 mcg/actuation 2 puffs INH Q6H PRN #18 gm 07/09/19 01/02/20 Rx aerosol inhaler budesonide-formoterol HFA 160 1 puff INHALATION BID #1 gm 07/09/19 01/02/20 Rx mcg-4.5 mcg/actuation aerosol inhaler diltiazem HCl [DILT-XR] 180 mg PO QAM 11/17/19 01/02/20 History fexofenadine 60 mg PO BID #30 tab 11/20/19 01/02/20 Rx triamcinolone acetonide [Nasacort] 2 spray BRIGID DAILY #1 inhaler 11/20/19 01/02/20 Rx prednisone 10 mg tablet 10 mg PO DAILY #60 tab 12/02/19 01/02/20 Rx ipratropium 0.5 mg-albuterol 3 mg 3 ml INHALATION QID PRN #180 ml 01/04/20 Rx (2.5 mg base)/3 mL nebulization soln Patient History Medical History Acute respiratory failure with hypoxia ?08/2018 Anxiety Asthma Cancer of right lung S/P CRYOTHERAPY (2015), S/P CHEMO/RADIATION, IMMUNOTHERAPY Cellulitis of left lower extremity (Resolved) Chronic hyponatremia COPD (chronic obstructive pulmonary disease) (Acute) Depression Dysphagia (Inactive) Dyspnea on minimal exertion GERD (gastroesophageal reflux disease) Hemoptysis (Inactive) Hyperlipidemia (Chronic) Hypertension Hypomagnesemia (Inactive) Hypoxia (Inactive) Irritable bowel disease Lung nodules Mediastinal lymphadenopathy Multiple fracture Neutropenia (Inactive) Neutropenic sepsis ? 08/2018 Obesity Pancytopenia Pneumonia ?09/2018 S/P ABX Sepsis (Inactive) Surgical History Difficult intubation LEFT FOOT RECONSTRUCTION: 12/28/16: GLIDESCOPE# 3 ETT 7.0 AT [facility] BRONCHOSCOPY; RUL STENT INSERTION: 10/16/18: "ELECTIVE" GLIDESCOPE #3, ETT 8.0 AT [facility] History of appendectomy History of bronchoscopy MULTIPLE 12/07/13 - MAC #2, Glidescope #3, ETT #8.0, HiLo Oral History of cataract surgery B/L History of colonoscopy 2016 History of difficult intubation 12/28/16 - Glidescope #3, ETT #7, Oral HiLo, Good View with Glidescope 12/07/13 - MAC #2, Glidescope #3, ETT #8.0, HiLo Oral History of esophagogastroduodenoscopy (EGD) W/ REMOVAL OF FOOD BOLUS 05/18/2019 [facility] Hx of abdominal hysterectomy 1972 Hx of foot surgery 2014 & 2017 - LEFT X2 12/28/16 - Glidescope #3, ETT #7, Oral HiLo, Good View with Glidescope Hx of repair of rotator cuff 2008 - RIGHT Hx of total shoulder replacement 2015 - LEFT 11/14/15 - MAC #3, ETT #7, Oral HiLo, Grade 1 View S/P pulmonary artery branches stent placement STENT PLACED VIA BRONCHOSCOPY 11/13/18, s/p removal 11/10/18 Family History Mother Dementia Father , Passed age 67 of Lung Cancer (Heavy Smoker) Lung cancer Brother , Passed in 68 of Liver Cancer Liver cancer Brother , Passed in 60's of [place] Myocardial infarction Brother COPD (chronic obstructive pulmonary disease) Sister No problems noted. Son No problems noted. Son No problems noted. Son No problems noted. Son No problems noted. Daughter No problems noted. 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 Beliefs That Will Affect Care: None marital status: / Current Living Situation: Family Current Living Situation Comment: lives with mother and sister current occupational status: retired current occupation: Retired from [employer] How many Children do You have: 2 Other Information That Helps Us Care for You: No Feels Safe at Home: Yes Safety Concerns: Feels Safe At This Time caffeine: Yes (1 pot of coffee/day ) Review of Systems Review of Systems: All systems reviewed & are unremarkable except as noted in HPI & below Physical Exam Physical Exam: Constitutional: Alert, cooperative and in no distress. HEENT: Unremarkable Neck: No jugular venous distention, carotid pulses are normal and equal bilaterally without bruits. Pulmonary: Rhonchi and expiratory wheezes bilaterally. Cardiac: Regular rhythm with no murmur, gallop or rub. Abdomen: Soft, nontender with normal bowel sounds. Extremities: No edema. Distal pulses intact. Neurologic: No focal findings. Gait is steady. Skin: No rash, ecchymoses or petechiae. Results & Data ([facility]) Vital Signs (Past 12 Hours) Vital Signs Temp Pulse Pulse Pulse Resp BP BP 01/05/20 15:35 85 01/05/20 15:29 36.6 C 81 18 147/69 H 01/05/20 15:08 80 18 01/05/20 11:55 36.6 C 76 20 117/67 01/05/20 11:12 84 18 01/05/20 08:36 122 H 132/85 01/05/20 08:00 165 H 134/80 01/05/20 07:53 36.6 C 91 H 19 155/75 H 01/05/20 07:11 89 16 Pulse Ox 01/05/20 15:35 01/05/20 15:29 97 01/05/20 15:08 94 01/05/20 11:55 95 01/05/20 11:12 94 01/05/20 08:36 01/05/20 08:00 01/05/20 07:53 95 01/05/20 07:11 98 Laboratory Results Comprehensive Metabolic Panel 01/05/20 Range/Units 08:02 Sodium 119 L* (136-145) mmol/L Potassium 3.7 D (3.5-5.1) mmol/L Chloride 83 L (98-107) mmol/L Carbon Dioxide 28 (21-32) mmol/L BUN 20 H (7-18) mg/dl Creatinine 0.95 (0.6-1.2) mg/dl Glucose 184 H (70-99) mg/dl Calcium 8.6 (8.5-10.1) mg/dl Intake and Output 01/05/20 01/05/20 01/05/20 06:59 14:59 22:59 Intake Total 375 / 1510 867.916 / 867.916 Output Total 400 / 950 400 / 400 Balance -25 / 560 467.916 / 467.916 Intake: IV 302.916 / 302.916 Zithromax 500 mg In D5w 250 ml 255 / 255 @ 125 mls/hr IV DAILY ERICKA Rx#: [id number] Cardizem 125 mg In D5 100 ml @ 47.916 / 47.916 10 MG/HR 10 mls/hr IV .[id number] ERICKA Rx#:[id number] Oral 375 / 1255 565 / 565 Output: Urine 400 / 950 400 / 400 Other: Weight 77.2 kg Diagnostic Findings Telemetry: I reviewed telemetry and she has had intermittent episodes of atrial fibrillation since admission. Most are quite brief, she had one episode this morning lasting about an hour which was the longest. During the arrhythmia her heart rate is somewhat elevated. During sinus rhythm her heart rate is co ntrolled. PG Care Time/CCT Total # of Minutes Spent Total Time Spent with Patient: Total time spent is greater than 50% in coordination of care (as documented) at patient's floor/unit and/or counseling patient: Coding Level of Care Code 74109 Initial Inpt Care Lvl 2 Diagnoses Atrial fibrillation with rapid ventricular response I48.91 Chest pain R07.9
--- NOTE | 2020-01-05 17:56 | XCELERA ---
[id number] \\[id number]_[id number]
[2020-01-05 18:14] LABS: BUN Creatinine Ratio 18.2 (10-20); Calcium 8.7 mg/dl (8.5-10.1); Creatinine Clr Calc Pharmacy 40.2 ml/min; Est GFR (African American) 52.6; Est GFR (Non-African American) 45.4; Potassium 4.1 mmol/L (3.5-5.1)
[2020-01-05] MEDS: APIXABAN 2.5 MG TAB PO SCH (21:34)
[2020-01-05] MEDS: ATORVASTATIN 20 MG TAB PO SCH (21:36)
[2020-01-06] MEDS: ALBUT/IPRATROP 3MG/0.5MG NEB 3 ML VIAL NEB SCH ×6 (03:12→23:27)
[2020-01-06] MEDS: methylPREDNISolone 40 MG in SYRINGE 0 ML IV SCH ×2 (05:44→14:57)
[2020-01-06] MEDS: APIXABAN 2.5 MG TAB PO SCH ×2 (08:10→20:15)
[2020-01-06] MEDS: DOXYCYCLINE HYCLATE 100 MG CAP PO SCH ×2 (08:10→20:14)
[2020-01-06] MEDS: FEXOFENADINE 60 MG TAB PO SCH ×2 (08:11→20:15)
[2020-01-06] MEDS: ASPIRIN 81 MG ECTAB PO SCH (08:11)
[2020-01-06] MEDS: PARoxetine HCL 20 MG TAB PO SCH (08:11)
[2020-01-06] MEDS: TOLVAPTAN 15 MG TABLET PO SCH (08:11)
[2020-01-06] MEDS: PANTOprazole 40 MG TAB PO SCH ×2 (08:11→20:14)
[2020-01-06] MEDS: TRIAMCINOLONE ACET NASAL SPRAY 10.8ML BTL NAE SCH (08:11)
[2020-01-06] MEDS: INSULIN GLARGINE SOLOSTAR 100 UNITS/ML 3 ML PEN SC SCH (08:12)
[2020-01-06] MEDS: dilTIAZem HCL 125 MG in DEXTROSE 5% 100 ML IV SCH ×2 (08:12→15:22)
[2020-01-06] MEDS: INSULIN ASPART 100 UNITS/ML 3 ML PEN SC SCH ×4 (08:14→20:34)
[2020-01-06] MEDS: MAGNESIUM HYDROXIDE SUSP 30 ML UDC PO PRN (08:14)
[2020-01-06 08:17] LABS: BUN Creatinine Ratio 20.8 (10-20); Blood Urea Nitrogen 21 mg/dl (7-18); Calcium 9.1 mg/dl (8.5-10.1); Carbon Dioxide 31 mmol/L (21-32); Chloride 91 mmol/L (98-107); Creatinine Clr Calc Pharmacy 46.7 ml/min; Est GFR (African American) 63.5; Est GFR (Non-African American) 54.8; Glucose 172 mg/dl (70-99); Potassium 4.2 mmol/L (3.5-5.1); Troponin I < 0.015 ng/ml (0-0.045)
[2020-01-06] MEDS ORDERED: dilTIAZem HCL 240 MG CAPCR PO SCH (09:00)
[2020-01-06 10:09] LABS: Sodium 129 mmol/L (136-145)
--- NOTE | 2020-01-06 10:36 | Nephrology Progress Note ---
Date of Service January 06, 2020 Assessment & Plan (1) Hyponatremia: * Hypoosmolar hyponatremia. Clinically euvolemic. No significant thyroid abnormality. Preserved kidney function. Hyponatremia may be related to ADH release associated w/ underlying lung CA * Patient has responded to Tolvaptan therapy. Urine osmolality has dropped to 129. Serum sodium near baseline at 129 this am * Stop Tolvaptan and monitor * Will consider NaCl and low dose Furosemide tomorrow as maintenance therapy (2) Non-small cell carcinoma of lung: * On immunotherapy as per Dr. Pulido (3) COPD exacerbation: * On steroid and bronchodilator therapy * Hyperglycemia related to steroid therapy is making a small contribution to hyponatremia (4) Tachycardia: * Cardiology is titrating Diltiazem for rate control Admission and Anticipated Discharge Date Admission Date: January 03, 2020 Subjective Ms. Miramontes was seen & examined in her hospital room this morning. She is A&O x3. She reports increased UO in response to Tolvaptan therapy. Review of Systems Constitutional: no fever and no weakness Eyes: no problem reported Ear, Nose, Mouth, Throat: no problem reported Respiratory: + dyspnea; no cough Cardiovascular: no edema Gastrointestinal: no abdominal pain and no diarrhea/loose stools Genitourinary: no dysuria and no hematuria Musculoskeletal: no back pain Integumentary: no rash Neurologic: no falls and no confusion Physical Exam Constitutional: not in distress Eyes: PERRL, conjunctivae normal, anicteric sclerae ENMT: external ear and nose normal, oropharynx normal Neck: trachea midline, no thyromegaly Respiratory: Auscultation: + rhonchi and + wheezes Cardiovascular: RRR, no murmur, no edema Gastrointestinal (Abdomen): normal bowel sounds, soft, nontender, no hepatosplenomegaly Musculoskeletal: Extremities: no cyanosis Skin: no rashes, warm and dry Neurologic: awake; not confused Results & Data ([facility]) Vital Signs (Past 12 Hours) Vital Signs Temp Pulse Pulse Resp BP BP Pulse Ox 01/06/20 08:00 91 H 01/06/20 07:22 36.6 C 88 20 158/76 H 94 01/06/20 07:11 100 H 16 98 01/06/20 04:21 36.5 C 88 18 135/69 94 01/06/20 00:57 83 01/05/20 23:15 36.8 C 90 18 141/71 H 94 01/05/20 22:37 87 18 94 Laboratory Results Laboratory Tests 01/06/20 01/06/20 04:05 06:51 Sodium 129 L D Potassium 4.2 Chloride 91 L Carbon Dioxide 31 BUN 21 H Creatinine 1.01 Glucose 172 H Urine Osmolality 129 L PG Care Time/CCT Total # of Minutes Spent Total Time Spent with Patient: Total time spent is greater than 50% in coordination of care (as documented) at patient's floor/unit and/or counseling patient: Coding Level of Care Code 21708 Subseq Hosp Care Lvl 3 Diagnoses Hyponatremia E87.1 Non-small cell carcinoma of lung C34.90 COPD exacerbation J44.1 Tachycardia R00.0
--- NOTE | 2020-01-06 12:31 | Cardiology Progress Note ---
Date of Service January 06, 2020 Assessment & Plan (1) Atrial fibrillation with rapid ventricular response: She has intermittent episodes of atrial fibrillation, the rate is somewhat fast and she does have some symptoms during it I think although she is not clear about that. I wonder if she had some sort of atrial arrhythmia in the past for which she is on diltiazem. My thought would be to try rate control at least as an initial strategy, I increase diltiazem this morning from 180 to 240 mg and her sinus rate was not significantly affected. She did have one episode of PAT which was quite rapid. I am going to increase her diltiazem to 300 mg daily starting tomorrow morning. Her blood pressure is high for the most part and it may help with that as well. If that does not work to control the rate we could add digoxin. I will avoid beta-blockade due to her COPD although she may to lerate it if needed. (2) Chest pain: She had an atypical type chest discomfort on presentation and negative cardiac enzymes, I doubt she has ischemic heart disease. A repeat troponin this morning remains undetectable consistent with this. Admission and Anticipated Discharge Date Admission Date: January 03, 2020 Subjective She is feeling very well today, she has no complaints, no palpitations. Physical Exam Physical Exam: Constitutional: Alert, cooperative and in no distress. HEENT: Unremarkable Neck: No jugular venous distention, carotid pulses are normal and equal bilaterally without bruits. Pulmonary: Rhonchi and expiratory wheezes bilaterally. Cardiac: Regular rhythm with no murmur, gallop or rub. Abdomen: Soft, nontender with normal bowel sounds. Extremities: No edema. Distal pulses intact. Neurologic: No focal findings. Gait is steady. Skin: No rash, ecchymoses or petechiae. Results & Data ([facility]) Vital Signs (Past 12 Hours) Vital Signs Temp Pulse Pulse Resp BP BP Pulse Ox 01/06/20 11:43 36.8 C 100 H 19 148/76 H 92 01/06/20 11:23 92 H 16 93 01/06/20 08:00 91 H 01/06/20 07:22 36.6 C 88 20 158/76 H 94 01/06/20 07:11 100 H 16 98 01/06/20 04:21 36.5 C 88 18 135/69 94 01/06/20 00:57 83 Laboratory Results Cardiac Enzymes 01/06/20 Range/Units 06:51 Troponin I < 0.015 (0-0.045) ng/ml Comprehensive Metabolic Panel 01/05/20 01/06/20 Range/Units 17:40 06:51 Sodium 122 L 129 L D (136-145) mmol/L Potassium 4.1 4.2 (3.5-5.1) mmol/L Chloride 85 L 91 L (98-107) mmol/L Carbon Dioxide 30 31 (21-32) mmol/L BUN 22 H 21 H (7-18) mg/dl Creatinine 1.18 1.01 (0.6-1.2) mg/dl Glucose 161 H 172 H (70-99) mg/dl Calcium 8.7 9.1 (8.5-10.1) mg/dl Intake and Output 01/06/20 01/06/20 01/06/20 06:59 14:59 22:59 Intake Total 495 / 495 Output Total 2200 / 4150 450 / 450 Balance -2200 / -2782.084 45 / 45 Intake: Oral 495 / 495 Output: Urine 2200 / 4150 450 / 450 Other: Other Intake Source SIPS Weight 76.2 kg Diagnostic Findings Telemetry: Sinus rhythm, only one brief episode of PAT versus brief atrial fibrillation since yesterday PG Care Time/CCT Total # of Minutes Spent Total Time Spent with Patient: Total time spent is greater than 50% in coordination of care (as documented) at patient's floor/unit and/or counseling patient: Coding Level of Care Code 90536 Subseq Hosp Care Lvl 2 Diagnoses Atrial fibrillation with rapid ventricular response I48.91 Chest pain R07.9
[2020-01-06] MEDS ORDERED: methylPREDNISolone 40 MG in SYRINGE 0 ML IV SCH (16:00)
[2020-01-06] MEDS: ATORVASTATIN 20 MG TAB PO SCH (20:15)
--- NOTE | 2020-01-06 21:16 | Hospitalist Progress Note ---
Date of Service January 06, 2020 Assessment & Plan (1) SIADH (syndrome of inappropriate ADH production): acute/chronic hyponatremia likely due to SIADH from lung ca. acute hyponatremia markedly improved s/p tolvaptan as ordered by Dr Encinas. urine and serum studies most c/w SIADH. TSH wnl. deferred on cortisol due to steroid use. nephrology consult appreciated. salt tabs/lasix tomorrow? BMP am. (2) Atrial fibrillation with rapid ventricular response: no further PAF. appreciate cardiology consultation. rate control recommended. cont eliquis 5mg BID. echo noted with preserved EF. K/mag wnl. CCB to be increased once again in am. no anti-arrhythmic for now. cont telemetry. appreciate cardiology assistance. (3) Chronic hyponatremia: acute/chronic. baseline about 130. 123 at admission. lowest 119. now 129. see discussion above in "SIADH." (4) Acute respiratory failure with hypoxia: 2nd COPD exacerbation and suspected acute diastolic CHF. latter resolved. former improving. (5) COPD exacerbation: IMPROVED today. wean steroids to q12h dosing. cont nebs. cont flutter valve and incentive lane. cont doxy. no PE or pneumonia on recent CTA. uses NC o2 at home just at night-time. (6) Acute diastolic CHF (congestive heart failure): resolved clinically. echo findings noted. no further lasix. (7) Ileus: clinically improving. etiology uncertain -- low Na?? (8) Hypertension: cont home meds (9) Anxiety: xanax prn (10) Esophageal reflux: PPI (11) Non-small cell carcinoma of lung: follows with Dr Pulido CT this admission shows progression of disease since early November despite immune- based therapy Dr Pulido aware -- will pay her visit patient possibly leaning towards hospice as per daughter may need formal palliative care consult (12) Prediabetes: improving control with lantus/novolog adjustments (13) Chronic kidney disease, stage 3a: Cr stable today BMP am (14) DVT prophylaxis: eliquis PT/OT daughter updated by phone today Admission and Anticipated Discharge Date Admission Date: January 03, 2020 Subjective no a.fib overnight patient feeling better each day dyspnea, cough improved still with COLE but this, too, is improved had small BM moving flatus along no abdominal pain bloating better no nausea/emesis Dr Pulido aware of worsening lung ca on recent CT Review of Systems Constitutional: no fever, no chills, no fatigue and no anorexia Respiratory: no sputum production Cardiovascular: no chest pain Physical Exam Constitutional: no acute distress and no altered mental status looks better today ENMT: external ear and nose normal, oropharynx normal Respiratory: no respiratory distress Auscultation: + wheezes (improved ); no crackles Cardiovascular: Rate/Rhythm: regular rate and regular rhythm Heart Sounds: normal S1 and normal S2; no murmur Vessels: posterior tibial pulses present and dorsalis pedis pulses present; no JVD Extremities: no edema Gastrointestinal (Abdomen): Inspection/Auscultation: + abdomen distended (improved again today ) and normal bowel sounds Percussion/Palpation: abdomen nontender, no guarding and no hepatosplenomegaly Psychiatric: Orientation: alert and oriented x 3 Results & Data Results & Data ([facility]) Vital Signs (Past 12 Hours) Vital Signs Temp Pulse Pulse Resp BP BP Pulse Ox 01/06/20 20:00 36.6 C 92 H 18 164/76 H 90 01/06/20 19:12 90 16 94 01/06/20 16:00 91 H 01/06/20 15:46 36.5 C 87 18 155/76 H 92 01/06/20 15:29 91 H 16 94 01/06/20 11:43 36.8 C 100 H 19 148/76 H 92 01/06/20 11:23 92 H 16 93 Laboratory Results Laboratory Results - last 24 hr 01/06/20 01/06/20 01/06/20 04:05 06:42 06:51 Sodium 129 L D Potassium 4.2 Chloride 91 L Carbon Dioxide 31 Anion Gap 7.0 BUN 21 H Creatinine 1.01 Est Cr Clr Drug Dosing 46.7 Est GFR ( Amer) 63.5 Est GFR (Non-Af Amer) 54.8 BUN/Creatinine Ratio 20.8 H Glucose 172 H POC Glucose 204 H Calcium 9.1 Troponin I < 0.015 Specimen Hemolysis Urine Osmolality 129 L 01/06/20 01/06/20 01/06/20 11:30 16:20 20:27 Sodium Potassium Chloride Carbon Dioxide Anion Gap BUN Creatinine Est Cr Clr Drug Dosing Est GFR ( Amer) Est GFR (Non-Af Amer) BUN/Creatinine Ratio Glucose POC Glucose 191 H 136 H 200 H Calcium Troponin I Specimen Hemolysis Urine Osmolality PG Care Time/CCT Total # of Minutes Spent Total Time Spent with Patient: Total time spent is greater than 50% in coordination of care (as documented) at patient's floor/unit and/or counseling patient: Coding Level of Care Code 23622 Subseq Hosp Care Lvl 3 Diagnoses SIADH (syndrome of inappropriate ADH production) E22.2 Atrial fibrillation with rapid ventricular response I48.91 Chronic hyponatremia E87.1 Acute respiratory failure with hypoxia J96.01 COPD exacerbation J44.1 Acute diastolic CHF (congestive heart failure) I50.31 Ileus K56.7 Hypertension I10 Anxiety F41.9 Esophageal reflux K21.9 Non-small cell carcinoma of lung C34.90 Prediabetes R73.03 Chronic kidney disease, stage 3a N18.3 DVT prophylaxis Z29.9
[2020-01-07] MEDS: ALBUT/IPRATROP 3MG/0.5MG NEB 3 ML VIAL NEB SCH ×6 (03:00→23:09)
[2020-01-07] MEDS: methylPREDNISolone 40 MG in SYRINGE 0 ML IV SCH ×2 (03:58→17:04)
[2020-01-07 06:02] LABS: BUN Creatinine Ratio 26.5 (10-20); Calcium 8.7 mg/dl (8.5-10.1); Est GFR (African American) 60.6; Est GFR (Non-African American) 52.3; Potassium 4.7 mmol/L (3.5-5.1)
[2020-01-07] MEDS: PANTOprazole 40 MG TAB PO SCH ×2 (07:45→20:44)
[2020-01-07] MEDS: FEXOFENADINE 60 MG TAB PO SCH ×2 (07:45→20:43)
[2020-01-07] MEDS: DOXYCYCLINE HYCLATE 100 MG CAP PO SCH ×2 (07:46→20:43)
[2020-01-07] MEDS: ASPIRIN 81 MG ECTAB PO SCH (07:46)
[2020-01-07] MEDS: APIXABAN 2.5 MG TAB PO SCH (07:46)
[2020-01-07] MEDS: PARoxetine HCL 20 MG TAB PO SCH (07:46)
[2020-01-07] MEDS: INSULIN GLARGINE SOLOSTAR 100 UNITS/ML 3 ML PEN SC SCH (07:47)
[2020-01-07] MEDS: INSULIN ASPART 100 UNITS/ML 3 ML PEN SC SCH ×4 (07:49→20:44)
[2020-01-07] MEDS: TRIAMCINOLONE ACET NASAL SPRAY 10.8ML BTL NAE SCH (07:50)
--- NOTE | 2020-01-07 08:13 | Electrocardiogram Report ---
Test Reason : Blood Pressure : / mmHG Vent. Rate : 094 BPM Atrial Rate : 094 BPM P-R Int : 156 ms QRS Dur : 080 ms QT Int : 362 ms P-R-T Axes : 000 000 131 degrees QTc Int : 452 ms Arm lead reversal present Normal sinus rhythm Poor R wave progression, consider anterior MN vs. lead placement vs. LVH Abnormal ECG When compared with ECG of 02-JAN-2020 22:39, Premature atrial complexes are no longer Present Confirmed by Jovanny Reyes ([id number]) on 01/07/2020 8:13:24 AM Referred By: REFERRED SELF Confirmed By:Jovanny Reyes
--- NOTE | 2020-01-07 08:17 | Electrocardiogram Report ---
Test Reason : Blood Pressure : / mmHG Vent. Rate : 109 BPM Atrial Rate : 208 BPM P-R Int : 000 ms QRS Dur : 078 ms QT Int : 328 ms P-R-T Axes : 000 -13 059 degrees QTc Int : 441 ms Atrial fibrillation with rapid ventricular response Abnormal ECG When compared with ECG of 04-JAN-2020 20:08, (unconfirmed) Atrial fibrillation has replaced Sinus rhythm Confirmed by Jovanny Reyes ([id number]) on 01/07/2020 8:16:39 AM Referred By: REFERRED SELF Confirmed By:Jovanny Reyes
--- NOTE | 2020-01-07 08:22 | Electrocardiogram Report ---
Test Reason : Blood Pressure : / mmHG Vent. Rate : 123 BPM Atrial Rate : 092 BPM P-R Int : 000 ms QRS Dur : 074 ms QT Int : 272 ms P-R-T Axes : 000 -35 063 degrees QTc Int : 389 ms Atrial fibrillation with rapid ventricular response Left axis deviation Nonspecific ST abnormality Abnormal ECG When compared with ECG of 04-JAN-2020 22:24, (unconfirmed) No significant change was found Confirmed by Jovanny Reyes ([id number]) on 01/07/2020 8:21:47 AM Referred By: REFERRED SELF Confirmed By:Jovanny Reyes
--- NOTE | 2020-01-07 08:23 | Electrocardiogram Report ---
Test Reason : Blood Pressure : / mmHG Vent. Rate : 100 BPM Atrial Rate : 100 BPM P-R Int : 156 ms QRS Dur : 080 ms QT Int : 342 ms P-R-T Axes : 052 -06 058 degrees QTc Int : 441 ms Sinus rhythm with Premature supraventricular complexes Otherwise normal ECG When compared with ECG of 05-JAN-2020 08:18, (unconfirmed) Sinus rhythm has replaced Atrial fibrillation ST elevation now present in Inferior leads Non-specific change in ST segment in Anterior leads Confirmed by Jovanny Reyes ([id number]) on 01/07/2020 8:23:09 AM Referred By: REFERRED SELF Confirmed By:Jovanny Reyes
[2020-01-07] MEDS ORDERED: dilTIAZem HCL 300 MG CAPCR PO SCH (09:00)
--- NOTE | 2020-01-07 10:35 | Nephrology Progress Note ---
Date of Service January 07, 2020 Assessment & Plan (1) Hyponatremia: * Hypoosmolar hyponatremia. Clinically euvolemic. No significant thyroid abnormality. Preserved kidney function. Hyponatremia may be related to ADH release associated w/ underlying lung CA * Patient has responded to Tolvaptan therapy. Urine osmolality has dropped to 129. Serum sodium has recovered to baseline 131 this am * Stop Tolvaptan and monitor * Will provide NaCl 1g po BID and Furosemide 20 mg po daily as maintenance therapy * Recheck Uosm in am (2) Non-small cell carcinoma of lung: * On immunotherapy as per Dr. Pulido * Recent chest CT shows progression of disease. Await Oncology input (3) COPD exacerbation: * On steroid and bronchodilator therapy (4) Tachycardia: * Cardiology is titrating Diltiazem for rate control Admission and Anticipated Discharge Date Admission Date: January 03, 2020 Subjective Ms. Miramontes was seen & examined in her hospital room this morning. She is subjectively stronger. She remains mildly dyspneic but voices no other concerns. Review of Systems Constitutional: no fever and no weakness Eyes: no problem reported Ear, Nose, Mouth, Throat: no problem reported Respiratory: + dyspnea; no cough Cardiovascular: no chest pain and no edema Gastrointestinal: no abdominal pain and no diarrhea/loose stools Genitourinary: no dysuria and no hematuria Integumentary: no rash Neurologic: no falls and no confusion Physical Exam Constitutional: not in distress Eyes: PERRL, conjunctivae normal, anicteric sclerae ENMT: external ear and nose normal, oropharynx normal Neck: trachea midline, no thyromegaly Respiratory: Auscultation: + rhonchi and + wheezes Cardiovascular: RRR, no murmur, no edema Gastrointestinal (Abdomen): normal bowel sounds, soft, nontender, no hepatosplenomegaly Musculoskeletal: Extremities: no cyanosis Skin: no rashes, warm and dry Neurologic: awake; not confused Results & Data ([facility]) Vital Signs (Past 12 Hours) Vital Signs Temp Pulse Pulse Resp BP BP Pulse Ox 01/07/20 08:00 87 01/07/20 07:23 88 19 98 01/07/20 07:09 36.6 C 87 20 150/75 H 97 01/07/20 03:59 152/77 H 01/07/20 03:03 36.6 C 85 16 177/77 H 95 01/07/20 03:00 94 H 18 96 01/06/20 23:28 98 H 20 96 01/06/20 23:11 36.7 C 94 H 20 149/83 H 96 01/06/20 22:53 98 H Laboratory Results Laboratory Tests 01/07/20 05:24 Sodium 131 L Potassium 4.7 Chloride 95 L Carbon Dioxide 32 BUN 28 H Creatinine 1.05 Glucose 171 H PG Care Time/CCT Total # of Minutes Spent Total Time Spent with Patient: Total time spent is greater than 50% in coordination of care (as documented) at patient's floor/unit and/or counseling patient: Coding Level of Care Code 67113 Subseq Hosp Care Lvl 3 Diagnoses Hyponatremia E87.1 Non-small cell carcinoma of lung C34.90 COPD exacerbation J44.1 Tachycardia R00.0
[2020-01-07] MEDS: SODIUM CHLORIDE 1 GM TABLET PO SCH ×2 (11:40→20:44)
[2020-01-07] MEDS: FUROSEMIDE 20 MG TAB PO SCH (11:40)
--- NOTE | 2020-01-07 16:05 | Cardiology Progress Note ---
Date of Service January 07, 2020 Assessment & Plan (1) Atrial fibrillation with rapid ventricular response: She has intermittent episodes of atrial fibrillation, the rate is still somewhat fast but I do not think she feels it. I wonder if she had some sort of atrial arrhythmia in the past for which she is on diltiazem. My thought would be to try rate control at least as an initial strategy, I increased diltiazem this morning from 240 to 300 mg and her sinus rate was not significantly affe cted. She did have several episodes of atrial fibrillation since yesterday with a somewhat rapid heart rate, this would be on the 2400 mg dose as it occurred before she received her medication today. I am going to increase her diltiazem to 360 mg daily starting tomorrow morning. Her blood pressure is high for the most part and it may help with that as well. If that does not work to control the rate we could add digoxin but I do not believe it would be necessary. I will avoid beta-blockade due to her COPD although she may tolerate it if needed. (2) Chest pain: She had an atypical type chest discomfort on presentation and negative cardiac enzymes, I doubt she has ischemic heart disease. A repeat troponin remained undetectable consistent with this. Admission and Anticipated Discharge Date Admission Date: January 03, 2020 Subjective She is feeling relatively well, she has no side effects on her medications and is unaware of palpitations (although she has had some atrial fibrillation). Physical Exam Physical Exam: Constitutional: Alert, cooperative and in no distress. HEENT: Unremarkable Neck: No jugular venous distention, carotid pulses are normal and equal bilaterally without bruits. Pulmonary: Rhonchi and expiratory wheezes bilaterally. Cardiac: Regular rhythm with no murmur, gallop or rub. Abdomen: Soft, nontender with normal bowel sounds. Extremities: No edema. Distal pulses intact. Neurologic: No focal findings. Gait is steady. Skin: No rash, ecchymoses or petechiae. Results & Data ([facility]) Vital Signs (Past 12 Hours) Vital Signs Temp Pulse Pulse Resp BP Pulse Ox 01/07/20 15:44 87 21 93 01/07/20 11:18 94 H 20 93 01/07/20 11:04 37.1 C 91 H 18 150/76 H 91 01/07/20 08:00 87 01/07/20 07:23 88 19 98 01/07/20 07:09 36.6 C 87 20 150/75 H 97 Laboratory Results Comprehensive Metabolic Panel 01/07/20 Range/Units 05:24 Sodium 131 L (136-145) mmol/L Potassium 4.7 (3.5-5.1) mmol/L Chloride 95 L (98-107) mmol/L Carbon Dioxide 32 (21-32) mmol/L BUN 28 H (7-18) mg/dl Creatinine 1.05 (0.6-1.2) mg/dl Glucose 171 H (70-99) mg/dl Calcium 8.7 (8.5-10.1) mg/dl Intake and Output 01/07/20 01/07/20 01/07/20 06:59 14:59 22:59 Intake Total 400 / 1170 595 / 595 Output Total 300 / 1050 300 / 300 Balance 100 / 120 295 / 295 Intake: Oral 400 / 1170 595 / 595 Output: Urine 300 / 1050 300 / 300 Other: Weight 76.6 kg Diagnostic Findings Telemetry: Predominantly sinus rhythm but some atrial fibrillation, during atrial fibrillation her heart rate is somewhat fast although better than on presentation. Her heart rate is around 110 on average during atrial fibrillation. PG Care Time/CCT Total # of Minutes Spent Total Time Spent with Patient: Total time spent is greater than 50% in coordination of care (as documented) at patient's floor/unit and/or counseling patient: Coding Level of Care Code 74040 Subseq Hosp Care Lvl 2 Diagnoses Atrial fibrillation with rapid ventricular response I48.91 Chest pain R07.9
[2020-01-07] MEDS: ATORVASTATIN 20 MG TAB PO SCH (20:43)
[2020-01-07] MEDS: APIXABAN 5 MG TABLET PO SCH (20:43)
[2020-01-07] MEDS: MAGNESIUM HYDROXIDE SUSP 30 ML UDC PO PRN (20:48)
--- NOTE | 2020-01-07 21:02 | Hospitalist Progress Note ---
Date of Service January 07, 2020 Assessment & Plan (1) SIADH (syndrome of inappropriate ADH production): acute/chronic hyponatremia likely due to SIADH from lung ca. acute hyponatremia markedly improved s/p tolvaptan as ordered by Dr Encinas. Na now 131 (baseline for her). urine and serum studies most c/w SIADH. TSH wnl. deferred on cortisol due to steroid use. nephrology consult appreciated. resumed salt tabs/lasix today. BMP am. (2) Atrial fibrillation with rapid ventricular response: cont with episodes of PAF. appreciate cardiology consultation. rate control recommended. cont eliquis 5mg BID. echo noted with preserved EF. K/mag wnl. CCB increased to 300mg qam today. cont telemetry. (3) Chronic hyponatremia: acute/chronic. baseline about 130. 123 at admission. lowest 119. now 131. see discussion above in "SIADH." (4) Acute respiratory failure with hypoxia: 2nd COPD exacerbation and suspected acute diastolic CHF. improving slowly. (5) COPD exacerbation: she is about the same as yesterday. no wean on steroids today. leave at q12h dosing. cont nebs. cont flutter valve and incentive lane. cont doxy. no PE or pneumonia on recent CTA. uses NC o2 at home just at night-time. (6) Acute diastolic CHF (congestive heart failure): resolved clinically. echo findings noted. have resumed PO lasix. (7) Ileus: clinically improving/resolving. soft exam. passing flatus. no GI symptoms. etiology uncertain -- low Na?? (8) Hypertension: cont home meds (9) Anxiety: xanax prn (10) Esophageal reflux: PPI (11) Non-small cell carcinoma of lung: follows with Dr Pulido CT this admission shows progression of disease since early November despite immune- based therapy Dr Pulido aware -- will pay her visit requested formal palliative care consult patient stating consistently she will NOT pursue additional Rx of her lung ca (12) Prediabetes: improved control with lantus/novolog adjustments (13) Chronic kidney disease, stage 3a: Cr stable again today BMP am (14) DVT prophylaxis: eliquis PT/OT daughter updated by phone again today Admission and Anticipated Discharge Date Admission Date: January 03, 2020 Subjective had additional run of PAF this am - no palpitations or other symptoms HRs 160s at peak patient states she "doesn't feel very good" - referring to breathing feels "more rattling" in chest today coughing wheezy COLE with going to bathroom eating well passing more flatus no abd pain has decided she does NOT want more chemotherapy for cancer wanting palliation/hospice comfortable with that decision Review of Systems Constitutional: + fatigue; no fever Respiratory: no hemoptysis Cardiovascular: no chest pain and no edema Physical Exam Constitutional: no acute distress and no altered mental status ENMT: external ear and nose normal, oropharynx normal Respiratory: no respiratory distress Auscultation: + crackles (Mild - bases ) and + wheezes (Extensive b/l ) Cardiovascular: Rate/Rhythm: regular rate and regular rhythm Heart Sounds: normal S1 and normal S2; no murmur Vessels: + JVD (Exam challenging but possibly mild JVD present), posterior tibial pulses present and dorsalis pedis pulses present Extremities: no edema Gastrointestinal (Abdomen): Inspection/Auscultation: + abdomen distended (improved again today ) and normal bowel sounds Percussion/Palpation: abdomen soft; abdomen nontender, no guarding and no hepatosplenomegaly Psychiatric: Orientation: alert and oriented x 3 Results & Data Results & Data ([facility]) Vital Signs (Past 12 Hours) Vital Signs Temp Pulse Resp BP BP Pulse Ox 01/07/20 19:46 36.6 C 80 20 137/74 94 01/07/20 19:17 83 18 97 01/07/20 16:00 36.5 C 77 20 129/66 91 01/07/20 15:44 87 21 93 01/07/20 11:18 94 H 20 93 01/07/20 11:04 37.1 C 91 H 18 150/76 H 91 Laboratory Results Laboratory Results - last 24 hr 01/07/20 01/07/20 01/07/20 05:24 07:26 10:45 Sodium 131 L Potassium 4.7 Chloride 95 L Carbon Dioxide 32 Anion Gap 4.0 BUN 28 H Creatinine 1.05 Est Cr Clr Drug Dosing 45.0 Est GFR ( Amer) 60.6 Est GFR (Non-Af Amer) 52.3 BUN/Creatinine Ratio 26.5 H Glucose 171 H POC Glucose 165 H Calcium 8.7 Urine Osmolality 398 L 01/07/20 01/07/20 01/07/20 11:28 15:51 20:08 Sodium Potassium Chloride Carbon Dioxide Anion Gap BUN Creatinine Est Cr Clr Drug Dosing Est GFR ( Amer) Est GFR (Non-Af Amer) BUN/Creatinine Ratio Glucose POC Glucose 109 H 106 H 109 H Calcium Urine Osmolality PG Care Time/CCT Total # of Minutes Spent Total Time Spent with Patient: Total time spent is greater than 50% in coordination of care (as documented) at patient's floor/unit and/or counseling patient: Coding Level of Care Code 81547 Subseq Hosp Care Lvl 3 Diagnoses SIADH (syndrome of inappropriate ADH production) E22.2 Atrial fibrillation with rapid ventricular response I48.91 Chronic hyponatremia E87.1 Acute respiratory failure with hypoxia J96.01 COPD exacerbation J44.1 Acute diastolic CHF (congestive heart failure) I50.31 Ileus K56.7 Hypertension I10 Anxiety F41.9 Esophageal reflux K21.9 Non-small cell carcinoma of lung C34.90 Prediabetes R73.03 Chronic kidney disease, stage 3a N18.3 DVT prophylaxis Z29.9
[2020-01-08] MEDS: ALBUT/IPRATROP 3MG/0.5MG NEB 3 ML VIAL NEB SCH ×6 (03:00→23:07)
[2020-01-08] MEDS: methylPREDNISolone 40 MG in SYRINGE 0 ML IV SCH ×2 (03:33→15:06)
[2020-01-08] MEDS: PANTOprazole 40 MG TAB PO SCH ×2 (07:29→21:27)
[2020-01-08] MEDS: dilTIAZem HCL 180 MG CAPCR PO SCH (07:29)
[2020-01-08] MEDS: MAGNESIUM HYDROXIDE SUSP 30 ML UDC PO PRN (07:29)
[2020-01-08] MEDS: PARoxetine HCL 20 MG TAB PO SCH (07:30)
[2020-01-08] MEDS: FEXOFENADINE 60 MG TAB PO SCH ×2 (07:30→20:52)
[2020-01-08] MEDS: FUROSEMIDE 20 MG TAB PO SCH ×2 (07:30→17:14)
[2020-01-08] MEDS: APIXABAN 5 MG TABLET PO SCH ×2 (07:30→20:52)
[2020-01-08] MEDS: ASPIRIN 81 MG ECTAB PO SCH (07:30)
[2020-01-08] MEDS: DOXYCYCLINE HYCLATE 100 MG CAP PO SCH ×2 (07:31→21:27)
[2020-01-08] MEDS: TRIAMCINOLONE ACET NASAL SPRAY 10.8ML BTL NAE SCH (07:31)
[2020-01-08] MEDS: SODIUM CHLORIDE 1 GM TABLET PO SCH ×2 (07:31→21:27)
[2020-01-08 07:41] LABS: BUN Creatinine Ratio 21.3 (10-20); Calcium 8.8 mg/dl (8.5-10.1); Creatinine Clr Calc Pharmacy 36.4 ml/min; Est GFR (African American) 46.4; Potassium 4.6 mmol/L (3.5-5.1)
[2020-01-08] MEDS: INSULIN GLARGINE SOLOSTAR 100 UNITS/ML 3 ML PEN SC SCH (07:56)
[2020-01-08] MEDS: INSULIN ASPART 100 UNITS/ML 3 ML PEN SC SCH ×4 (07:58→20:56)
--- NOTE | 2020-01-08 11:03 | Nephrology Progress Note ---
Date of Service January 08, 2020 Assessment & Plan (1) Hyponatremia: * Hypoosmolar hyponatremia. Clinically euvolemic. No significant thyroid abnormality. Preserved kidney function. Hyponatremia may be related to ADH release associated w/ underlying lung CA * Patient has responded to Tolvaptan therapy. Serum sodium has recovered to baseline 131 mg/dL * Continue NaCl 1g po and Furosemide 20 mg po BID as maintenance therapy * Ms. Miramontes is transitioning to hospice care. No further Nephrology evaluation needed at this time. Will sign off. Please call if further assistance is needed (2) Non-small cell carcinoma of lung: * Chest CT shows progression of disease despite immunotherapy * Patient declines further chemo/immunotherapy and now wishes to transition to hospice care Admission and Anticipated Discharge Date Admission Date: January 03, 2020 Subjective Ms. Miramontes was seen & examined in her hospital room this morning. She remains mildly dyspneic. Ms. Miramontes reports that she has met w/ Dr. Pulido. She does not wish to pursue further chemotherapy. She is ready to transition to hospice care Review of Systems Constitutional: no fever and no weakness Eyes: no problem reported Ear, Nose, Mouth, Throat: no problem reported Respiratory: + dyspnea; no cough Cardiovascular: no chest pain and no edema Gastrointestinal: no abdominal pain Genitourinary: no dysuria and no hematuria Musculoskeletal: no back pain Integumentary: no rash Neurologic: no dizziness and no confusion Physical Exam Constitutional: not in distress Eyes: PERRL, conjunctivae normal, anicteric sclerae ENMT: external ear and nose normal, oropharynx normal Neck: trachea midline, no thyromegaly Respiratory: Auscultation: + rhonchi and + wheezes Cardiovascular: RRR, no murmur, no edema Gastrointestinal (Abdomen): normal bowel sounds, soft, nontender, no hepatosplenomegaly Musculoskeletal: Extremities: no cyanosis Skin: no rashes, warm and dry Neurologic: awake; not confused Results & Data ([facility]) Vital Signs (Past 12 Hours) Vital Signs Temp Pulse Resp BP BP Pulse Ox 01/08/20 07:05 36.4 C L 79 20 140/67 96 01/08/20 06:55 86 20 93 01/08/20 03:22 36.6 C 74 22 111/67 94 01/08/20 03:01 78 16 97 01/07/20 23:19 36.5 C 83 24 133/73 96 01/07/20 23:09 78 18 98 Laboratory Tests 01/08/20 06:41 Sodium 131 L Potassium 4.6 Chloride 91 L Carbon Dioxide 33 H BUN 28 H Creatinine 1.31 H Glucose 173 H PG Care Time/CCT Total # of Minutes Spent Total Time Spent with Patient: Total time spent is greater than 50% in coordination of care (as documented) at patient's floor/unit and/or counseling patient: Coding Level of Care Code 40806 Subseq Hosp Care Lvl 3 Diagnoses Hyponatremia E87.1 Non-small cell carcinoma of lung C34.90
--- NOTE | 2020-01-08 11:07 | Cardiology Progress Note ---
Date of Service January 08, 2020 Assessment & Plan (1) Atrial fibrillation with rapid ventricular response: She continues to have intermittent episodes of atrial fibrillation, but remains for the most part in sinus rhythm. The rate is still borderline fast during atrial fibrillation but I do not think she feels it, her sinus rate has not slowed appreciably. I wonder if she had some sort of atrial arrhythmia in the past for which she was on diltiazem. I would continue rate control at least as an initial strategy, I increased diltiazem this morning again from 300 to 360 mg and her sinus rate was not significantly affected. She did have several episodes of atrial fibrillation since yesterday with a somewhat rapid heart rate but improved, this would be on the 300 mg dose as it occurred before she received her medication today. I am going to continue her diltiazem at 360 mg daily and I think heart rate control will be adequate. Her blood pressure had been high for the most part but improved over the last 24 hours and the increased calcium blockade may have helped with that. If that does not work to control the rate in the future we could add digoxin but I do not believe it well be necessary. I will avoid beta-blockade due to her COPD although she may tolerate it if needed. (2) Chest pain: She had an atypical type chest discomfort on presentation and negative cardiac enzymes, I doubt she has ischemic heart disease. A repeat troponin remained undetectable consistent with this. This has not been a recurrent issue. Admission and Anticipated Discharge Date Admission Date: January 03, 2020 Subjective She is feeling well today, she is sitting in her chair at bedside. Physical Exam Physical Exam: Constitutional: Alert, cooperative and in no distress. HEENT: Unremarkable Neck: No jugular venous distention, carotid pulses are normal and equal bilaterally without bruits. Pulmonary: Rhonchi and expiratory wheezes bilaterally. Cardiac: Regular rhythm with no murmur, gallop or rub. Abdomen: Soft, nontender with normal bowel sounds. Extremities: No edema. Distal pulses intact. Neurologic: No focal findings. Gait is steady. Skin: No rash, ecchymoses or petechiae. Results & Data ([facility]) Vital Signs (Past 12 Hours) Vital Signs Temp Pulse Resp BP BP Pulse Ox 01/08/20 10:56 36.6 C 89 20 124/68 92 01/08/20 07:05 36.4 C L 79 20 140/67 96 01/08/20 06:55 86 20 93 01/08/20 03:22 36.6 C 74 22 111/67 94 01/08/20 03:01 78 16 97 01/07/20 23:19 36.5 C 83 24 133/73 96 01/07/20 23:09 78 18 98 Laboratory Results Comprehensive Metabolic Panel 01/08/20 Range/Units 06:41 Sodium 131 L (136-145) mmol/L Potassium 4.6 (3.5-5.1) mmol/L Chloride 91 L (98-107) mmol/L Carbon Dioxide 33 H (21-32) mmol/L BUN 28 H (7-18) mg/dl Creatinine 1.31 H (0.6-1.2) mg/dl Glucose 173 H (70-99) mg/dl Calcium 8.8 (8.5-10.1) mg/dl Intake and Output 01/07/20 01/08/20 01/08/20 22:59 06:59 14:59 Intake Total 455 / 1050 Output Total 250 / 1050 500 / 1050 Balance 205 / 0 -500 / 0 Intake: Oral 455 / 1050 Output: Urine 250 / 1050 500 / 1050 Other: Weight 77.7 kg Diagnostic Findings Telemetry: Predominantly sinus rhythm at a controlled heart rate, brief episodes of PAF with a rate just over 100 on the most recent episode which was quite brief. PG Care Time/CCT Total # of Minutes Spent Total Time Spent with Patient: Total time spent is greater than 50% in coordination of care (as documented) at patient's floor/unit and/or counseling patient: Coding Level of Care Code 04580 Subseq Hosp Care Lvl 2 Diagnoses Atrial fibrillation with rapid ventricular response I48.91 Chest pain R07.9
[2020-01-08] MEDS ORDERED: bisacodyL 5 MG TABEC PO ONE (14:15)
--- NOTE | 2020-01-08 14:40 | Palliative Care Consultation ---
Date of Consultation January 08, 2020 Assessment & Plan (1) Goals of care, counseling/discussion: Patient is a 74-year-old female with a past medical history significant for squamous cell carcinoma of the lung-diagnosed in February 2018-status post chemo/XRT. Patient has been followed by Dr. Pulido for the past 2 years. Patient has been found to have disease progression despite several different types of chemotherapy. Patient has now decided to forego any further chemo and has elected to return home with hospice care. Patient's past medical history is also significant for COPD, A. fib with RVR and recently diagnosed SIADH. Patient presented to [facility] on 01/02 with left-sided chest pain and shortness of breath-she was felt to have a COPD combined with CHF exacerbation. Patient was treated for both with some improvement. Her sodium on admission was 123. Consults with nephrology-have improved her sodium level, she continues on sodium supplementation and Lasix. With her A. fib with RVR-cardiology has been assisting with rate control-increase in her diltiazem has been helpful. Patient is also on Eliquis for AC. Patient with elevated blood sugars- likely due to Solu-Medrol. Patient has a [id number] of smoking-quit in 1999. -Met with patient in room 240-1, no family or friends at bedside. Patient states she feels comfortable at rest. -Patient had discussion last evening with Dr. Buck-she has decided to forego any further chemo and return home with hospice. -Discussed CODE STATUS-patient does not want chest compressions, shock, or intubation. Will change her CODE STATUS to DNR. Patient will fill out a POLST form at home with hospice agency. -Patient has been since 2012, had been for 32 years. Patient has 5 children and 4 surviving stepchildren. -Patient states she does have advanced directives, named her daughter, Flakita, as her healthcare surrogate. -Patient attends [employer]. -Patient currently lives with her mother who has dementia, her sister also has moved into healthcare for their mother as well as the patient. Patient's children and stepchildren live nearby and are very supportive and available as well as patient's brother lives approximately a mile away. -Patient has had home health with [facility] -they are associated with [facility]. -Patient's sodium has been stable at 131 on current therapy. -Patient with occasional issues with constipation-discussed titrating MiraLAX which she uses at home to affect. -Patient currently comfortable on room air -Patient has no specific concerns or fears regarding disease progression or end of life -Discussed with patient at length considering her energy and taking advantage of services and hospice provides including aids to assist with bathing. (2) Cancer of lung, upper lobe: Per heme-onc notes diagnosed with squamous cell cancer of the lung in February 2018 (3) SIADH (syndrome of inappropriate ADH production): With hyponatremia-sodium stable at 131 on current sodium supplementation Lasix (4) Atrial fibrillation with rapid ventricular response: Rate controlled with increased dose diltiazem, continuing Eliquis for AC History of Present Illness Requesting Physician: Dr De La Vega Attending Physician: Serge De La Vega History of Present Illness Patient is a 74-year-old female with a past medical history significant for squamous cell carcinoma of the lung-diagnosed in February 2018-status post chemo/XRT. Patient has been followed by Dr. Pulido for the past 2 years. Patient has been found to have disease progression despite several different types of chemotherapy. Patient has now decided to forego any further chemo and has elected to return home with hospice care. Patient's past medical history is also significant for COPD, A. fib with RVR and recently diagnosed SIADH. Patient presented to [facility] on 01/02 with left-sided chest pain and shortness of breath-she was felt to have a COPD combined with CHF exacerbation. Patient was treated for both with some improvement. Her sodium on admission was 123. Consults with nephrology-have improved her sodium level, she continues on sodium supplementation and Lasix. With her A. fib with RVR-cardiology has been assisting with rate control-increase in her diltiazem has been helpful. Patient is also on Eliquis for AC. Patient with elevated blood sugars- likely due to Solu-Medrol. Patient has a 54-[id number] of smoking-quit in 1999. -Met with patient in room 240-1, no family or friends at bedside. Patient states she feels comfortable at rest. -Patient had discussion last evening with Dr. Buck-she has decided to forego any further chemo and return home with hospice. -Discussed CODE STATUS-patient does not want chest compressions, shock, or intubation. Will change her CODE STATUS to DNR. Patient will fill out a POLST form at home with hospice agency. -Patient has been since 2012, had been for 32 years. Patient has 5 children and 4 surviving stepchildren. -Patient states she does have advanced directives, named her daughter, Flakita, as her healthcare surrogate. -Patient attends [employer]. -Patient currently lives with her mother who has dementia, her sister also has moved into healthcare for their mother as well as the patient. Patient's children and stepchildren live nearby and are very supportive and available as well as patient's brother lives approximately a mile away. -Patient has had home health with [facility] -they are associated with [facility] hosp[facility]. -Patient's sodium has been stable at 131 on current therapy. -Patient with occasional issues with constipation-discussed titrating MiraLAX which she uses at home to affect. -Patient currently comfortable on room air -Patient has no specific concerns or fears regarding disease progression or end of life -Discussed with patient at length considering her energy and taking advantage of services and hospice provides including aids to assist with bathing. Allergies Allergy/AdvReac Type Severity Reaction Status Date / Time hydrochlorothiazide AdvReac Intermediate DIZZY, Verified 01/02/20 23:03 "LOOPY" FEELING Home Medications Home Medications Medication Instructions Recorded Confirmed Type alprazolam 0.25 mg PO Q12 PRN 03/27/18 01/02/20 History aspirin 81 mg PO QAM 03/27/18 01/02/20 History atorvastatin 20 mg PO HS 03/27/18 01/02/20 History lansoprazole [Prevacid] 15 mg PO BID 04/02/19 01/02/20 History losartan [Cozaar] 50 mg PO QAM 04/02/19 01/02/20 History multivitamin 1 tab PO QAM 04/02/19 01/02/20 History paroxetine HCl 20 mg PO QAM 04/02/19 01/02/20 History albuterol sulfate 90 mcg/actuation 2 puffs INH Q6H PRN #18 gm 07/09/19 01/02/20 Rx aerosol inhaler budesonide-formoterol HFA 160 1 puff INHALATION BID #1 gm 07/09/19 01/02/20 Rx mcg-4.5 mcg/actuation aerosol inhaler diltiazem HCl [DILT-XR] 180 mg PO QAM 11/17/19 01/02/20 History fexofenadine 60 mg PO BID #30 tab 11/20/19 01/02/20 Rx triamcinolone acetonide [Nasacort] 2 spray BRIGID DAILY #1 inhaler 11/20/19 01/02/20 Rx prednisone 10 mg tablet 10 mg PO DAILY #60 tab 12/02/19 01/02/20 Rx ipratropium 0.5 mg-albuterol 3 mg 3 ml INHALATION QID PRN #180 ml 01/04/20 Rx (2.5 mg base)/3 mL nebulization soln Patient History Medical History Acute respiratory failure with hypoxia ?08/2018 Anxiety Asthma Cancer of right lung S/P CRYOTHERAPY (2014), S/P CHEMO/RADIATION, IMMUNOTHERAPY Cellulitis of left lower extremity (Resolved) Chronic hyponatremia COPD (chronic obstructive pulmonary disease) (Acute) Depression Dysphagia (Inactive) Dyspnea on minimal exertion GERD (gastroesophageal reflux disease) Hemoptysis (Inactive) Hyperlipidemia (Chronic) Hypertension Hypomagnesemia (Inactive) Hypoxia (Inactive) Irritable bowel disease Lung nodules Mediastinal lymphadenopathy Multiple fracture Neutropenia (Inactive) Neutropenic sepsis ? 08/2018 Obesity Pancytopenia Pneumonia ?09/2018 S/P ABX Sepsis (Inactive) Surgical History Difficult intubation LEFT FOOT RECONSTRUCTION: 12/28/16: GLIDESCOPE# 3 ETT 7.0 AT [facility] BRONCHOSCOPY; RUL STENT INSERTION: 10/16/18: "ELECTIVE" GLIDESCOPE #3, ETT 8.0 AT [facility] History of appendectomy History of bronchoscopy MULTIPLE 12/07/13 - MAC #2, Glidescope #3, ETT #8.0, HiLo Oral History of cataract surgery B/L History of colonoscopy 2017 History of difficult intubation 12/28/16 - Glidescope #3, ETT #7, Oral HiLo, Good View with Glidescope 12/07/13 - MAC #2, Glidescope #3, ETT #8.0, HiLo Oral History of esophagogastroduodenoscopy (EGD) W/ REMOVAL OF FOOD BOLUS 05/18/2019 [facility] Hx of abdominal hysterectomy 1972 Hx of foot surgery 2014 & 2017 - LEFT X2 12/28/16 - Glidescope #3, ETT #7, Oral HiLo, Good View with Glidescope Hx of repair of rotator cuff 2008 - RIGHT Hx of total shoulder replacement 2015 - LEFT 11/14/15 - MAC #3, ETT #7, Oral HiLo, Grade 1 View S/P pulmonary artery branches stent placement STENT PLACED VIA BRONCHOSCOPY 11/13/18, s/p removal 11/10/18 Family History Mother Dementia Father , Passed age 67 of Lung Cancer (Heavy Smoker) Lung cancer Brother , Passed in 68 of Liver Cancer Liver cancer Brother , Passed in 60's of [place] Myocardial infarction Brother COPD (chronic obstructive pulmonary disease) Sister No problems noted. Son No problems noted. Son No problems noted. Son No problems noted. Son No problems noted. Daughter No problems noted. Social History Smoking Status: Former smoker (ESTIMATED QUIT DATE 1999, SMOKED 1 PACK/WEEK FOR 35 YEARS) Tobacco Type: Cigarettes Cigarettes Per Day: 1 pack/week; Second Hand Exposure: Yes (hx); Hx Alcohol Use: No Hx Substance Use: No Preferred Language: Yi Communication Ability: Effective Visual Impairment: No Limitations Hearing Ability: Normal Disease Case Manager Rn Required: No Beliefs That Will Affect Care: None marital status: / Current Living Situation: Family Current Living Situation Comment: lives with mother and sister current occupational status: retired current occupation: Retired from [employer] How many Children do You have: 2 Other Information That Helps Us Care for You: No Feels Safe at Home: Yes Safety Concerns: Feels Safe At This Time caffeine: Yes (1 pot of coffee/day ) Review of Systems Constitutional: + weight loss; no fever and no chills Eyes: no problem reported Ear, Nose, Mouth, Throat: no problem reported Respiratory: + cough, + chest congestion and + dyspnea on exertion Cardiovascular: + dyspnea on exertion; no chest pain and no edema Additional Comments: A fib Gastrointestinal: + constipation Genitourinary: no urinary incontinence Musculoskeletal: no problem reported Integumentary: no problem reported Neurologic: no memory loss Psychiatric: no depression and no anxiety Endocrine: + fatigue Physical Exam Physical Exam: PE: Patient awake and alert, no acute distress, sitting in chair at bedside. HEENT: EOMI, hearing within normal limits Respirations: Slight increased shortness of breath with conversation, coarse rhonchi bilaterally. Positive cough-difficulty mobilizing phlegm CV: Rate controlled, no edema Abdomen: Soft, nontender, obese Extremities: Full range of motion Neuro: Alert and oriented x4 Psych: Appropriate mood and affect Results & Data Vital Signs (Past 12 Hours) Vital Signs Temp Pulse Resp BP BP Pulse Ox 01/08/20 11:28 89 18 95 01/08/20 10:56 97.9 F 89 20 124/68 92 01/08/20 07:05 97.5 F L 79 20 140/67 96 01/08/20 06:55 86 20 93 01/08/20 03:22 97.9 F 74 22 111/67 94 01/08/20 03:01 78 16 97 PG Care Time/CCT Total # of Minutes Spent Total Time Spent with Patient: Total time spent 70 minutes with greater than 50% of the time at bedside discussing patient's goals, developing a plan, collaborated with attending physician as well as oncologist. Coding Level of Care Code 59057 Inpt Consult Level 3 Diagnoses Goals of care, counseling/discussion Z71.89 Cancer of lung, upper lobe C34.10 SIADH (syndrome of inappropriate ADH production) E22.2 Atrial fibrillation with rapid ventricular response I48.91 Time Spent (min) 70
[2020-01-08] MEDS: guaiFENesin 600 MG TABCR PO SCH ×2 (15:06→20:53)
--- NOTE | 2020-01-08 15:06 | XRay Report ---
XR chest 2V PA/lateral HISTORY: 74 years-old Female decreased BS LEFT decreased breath sounds COMPARISON: Acute abdominal series radiographs 01/04/2020, CTA chest 01/03/2020 TECHNIQUE: PA and lateral views of the chest FINDINGS: Cardiac silhouette is enlarged. Chronic right lung volume loss with right perihilar fibrosis. Numerou s left greater the right pulmonary nodules are better seen on comparison CTA of the chest. There is n o large pleural effusion or overt pulmonary edema. Reverse left shoulder total joint arthroplasty. Th ere is a questioned pleural line at the right lung apex. This persists on both the PA images. IMPRESSION: 1. Questioned pleural line versus artifact at the right lung apex. Correlation with inspiration and e xpiration views recommended to exclude a small pneumothorax. 2. Chronic postoperative and posttherapeutic changes of the right lung. 3. Left greater than right bilateral pulmonary nodules are redemonstrated, better characterized on co mparison CT of the chest. ACT 112: Negative or not required by law. The above report was generated using voice recognition software. It may contain grammatical, syntax o r spelling errors. Electronically signed by: Puneet Murguia M.D. 01/08/2020 3:05 PM
[2020-01-08] MEDS: ATORVASTATIN 20 MG TAB PO SCH (20:52)
--- NOTE | 2020-01-08 22:05 | Hospitalist Progress Note ---
Date of Service January 08, 2020 Assessment & Plan (1) SIADH (syndrome of inappropriate ADH production): acute/chronic hyponatremia due to SIADH from lung ca. acute hyponatremia markedly improved s/p tolvaptan. Na now at baseline. urine and serum studies most c/w SIADH. TSH wnl. nephrology consult appreciated. cont salt tabs/lasix today. BMP am. (2) Atrial fibrillation with rapid ventricular response: continues with episodes of PAF. appreciate cardiology consultation. rate control recommended. cont eliquis 5mg BID. echo noted with preserved EF. K/mag wnl. CCB increased to 360mg qam today. cont telemetry. (3) Chronic hyponatremia: acute/chronic. baseline about 130. 123 at admission. lowest 119. now 131. see discussion above in "SIADH." (4) Acute respiratory failure with hypoxia: 2nd COPD exacerbation and suspected acute diastolic CHF. improving slowly. cont COPD Rx. (5) COPD exacerbation: she is about the same as yesterday. again no wean on steroids today. leave at q12h dosing. cont nebs. cont flutter valve and incentive lane. cont doxy. no PE or pneumonia on recent CTA. uses NC o2 at home just at night-time. decreased BS on left today - repeat CXR today. (6) Acute diastolic CHF (congestive heart failure): resolved clinically. echo findings noted. have resumed PO lasix. (7) Ileus: clinically improving/resolving. soft exam. passing flatus. no GI symptoms. etiology uncertain -- low Na?? dulcolax x 1 (PO). (8) Hypertension: cont home meds (9) Anxiety: xanax prn (10) Esophageal reflux: PPI (11) Non-small cell carcinoma of lung: follows with Dr Pulido CT this admission shows progression of disease since early November despite immune- based therapy Dr Pulido aware. appreciate formal palliative care consult. DNR/DNI. home with hospice at pt request. (12) Prediabetes: cont lantus/novolog (13) Chronic kidney disease, stage 3a: Cr stable BMP am (14) DVT prophylaxis: eliquis PT/OT daughter updated by phone yesterday once COPD flare is improved will d/c home w/ hospice Admission and Anticipated Discharge Date Admission Date: January 03, 2020 Subjective patient feeling ok today. coughing, COLE - unchanged. wheezing unchanged. eating well. passing flatus but still no stool. denies abdominal pain. no fever. patient wants DNR/DNI. tele with several runs of PAF. Review of Systems Constitutional: no fever Respiratory: no sputum production Cardiovascular: no chest pain Gastrointestinal: no abdominal pain Physical Exam Constitutional: no acute distress and no altered mental status ENMT: external ear and nose normal, oropharynx normal Respiratory: no respiratory distress Auscultation: + diminished lung sounds (entire posterior left lung ), + crackles (Mild - bases ) and + wheezes (Ex tensive b/l ) Cardiovascular: Rate/Rhythm: regular rate and regular rhythm Heart Sounds: normal S1 and normal S2; no murmur Vessels: posterior tibial pulses present and dorsalis pedis pulses present; no JVD Extremities: no edema Gastrointestinal (Abdomen): Inspection/Auscultation: + abdomen distended (mild - improved from prior exams) and normal bowel sounds Percussion/Palpation: abdomen soft; abdomen nontender, no guarding and no hepatosplenomegaly Psychiatric: A+Ox3, euthymic affect Results & Data Results & Data ([facility]) Vital Signs (Past 12 Hours) Vital Signs Temp Pulse Resp BP Pulse Ox 01/08/20 20:00 37.2 C 89 18 138/73 92 01/08/20 19:38 96 H 20 90 01/08/20 15:35 83 18 91 01/08/20 15:26 36.5 C 91 H 22 139/68 91 01/08/20 11:28 89 18 95 01/08/20 10:56 36.6 C 89 20 124/68 92 Laboratory Results Laboratory Results - last 24 hr 01/08/20 01/08/20 01/08/20 06:41 07:19 11:19 Sodium 131 L Potassium 4.6 Chloride 91 L Carbon Dioxide 33 H Anion Gap 8.0 BUN 28 H Creatinine 1.31 H Est Cr Clr Drug Dosing 36.4 Est GFR ( Amer) 46.4 Est GFR (Non-Af Amer) 40.0 BUN/Creatinine Ratio 21.3 H Glucose 173 H POC Glucose 199 H 194 H Calcium 8.8 01/08/20 01/08/20 15:48 20:14 Sodium Potassium Chloride Carbon Dioxide Anion Gap BUN Creatinine Est Cr Clr Drug Dosing Est GFR ( Amer) Est GFR (Non-Af Amer) BUN/Creatinine Ratio Glucose POC Glucose 124 H 128 H Calcium PG Care Time/CCT Total # of Minutes Spent Total Time Spent with Patient: Total time spent is greater than 50% in coordination of care (as documented) at patient's floor/unit and/or counseling patient: Coding Level of Care Code 64876 Subseq Hosp Care Lvl 2 Diagnoses SIADH (syndrome of inappropriate ADH production) E22.2 Atrial fibrillation with rapid ventricular response I48.91 Chronic hyponatremia E87.1 Acute respiratory failure with hypoxia J96.01 COPD exacerbation J44.1 Acute diastolic CHF (congestive heart failure) I50.31 Ileus K56.7 Hypertension I10 Anxiety F41.9 Esophageal reflux K21.9 Non-small cell carcinoma of lung C34.90 Prediabetes R73.03 Chronic kidney disease, stage 3a N18.3 DVT prophylaxis Z29.9
[2020-01-09] MEDS: ALBUT/IPRATROP 3MG/0.5MG NEB 3 ML VIAL NEB SCH ×6 (03:38→23:07)
[2020-01-09] MEDS: methylPREDNISolone 40 MG in SYRINGE 0 ML IV SCH ×2 (03:51→17:19)
[2020-01-09 07:29] LABS: BUN Creatinine Ratio 27.7 (10-20); Calcium 8.6 mg/dl (8.5-10.1); Creatinine Clr Calc Pharmacy 44.6 ml/min; Est GFR (African American) 59.9; Est GFR (Non-African American) 51.7
[2020-01-09] MEDS: PANTOprazole 40 MG TAB PO SCH ×2 (07:44→21:57)
[2020-01-09] MEDS: DOXYCYCLINE HYCLATE 100 MG CAP PO SCH ×2 (07:44→21:57)
[2020-01-09] MEDS: ACETAMINOPHEN 325 MG TAB PO PRN (07:44)
[2020-01-09] MEDS: FUROSEMIDE 20 MG TAB PO SCH ×2 (07:45→17:19)
[2020-01-09] MEDS: PARoxetine HCL 20 MG TAB PO SCH (07:45)
[2020-01-09] MEDS: guaiFENesin 600 MG TABCR PO SCH ×2 (07:45→21:57)
[2020-01-09] MEDS: SODIUM CHLORIDE 1 GM TABLET PO SCH ×2 (07:45→21:57)
[2020-01-09] MEDS: dilTIAZem HCL 180 MG CAPCR PO SCH (07:45)
[2020-01-09] MEDS: ASPIRIN 81 MG ECTAB PO SCH (07:45)
[2020-01-09] MEDS: FEXOFENADINE 60 MG TAB PO SCH ×2 (07:46→21:56)
[2020-01-09] MEDS: APIXABAN 5 MG TABLET PO SCH ×2 (07:46→21:57)
[2020-01-09] MEDS: TRIAMCINOLONE ACET NASAL SPRAY 10.8ML BTL NAE SCH (07:46)
[2020-01-09] MEDS: INSULIN ASPART 100 UNITS/ML 3 ML PEN SC SCH ×4 (07:50→21:57)
[2020-01-09] MEDS: INSULIN GLARGINE SOLOSTAR 100 UNITS/ML 3 ML PEN SC SCH (07:50)
--- NOTE | 2020-01-09 07:51 | XRay Report ---
XR chest inspiration/expiratio CLINICAL HISTORY: ?pneumothorax on prior cxr dyspnea COMPARISON STUDY: 01/08/2020 2:50 PM FINDINGS: No evidence for pneumothorax. The changes in the right perihilar and right apical region pe rsist. There is small left pleural effusion unchanged. IMPRESSION: No evidence for pneumothorax. The study is otherwise unchanged. ACT 112: Negative or not required by law. The above report was generated using voice recognition software. It may contain grammatical, syntax or spelling errors. Electronically signed by: Eugene Foreman M.D. 01/09/2020 7:50 AM
[2020-01-09] MEDS: MAGNESIUM HYDROXIDE SUSP 30 ML UDC PO PRN (08:37)
[2020-01-09] MEDS: ACETYLCYSTEINE 20% INHAL SOLN 30ML INH SCH (19:22)
--- NOTE | 2020-01-09 21:39 | Hospitalist Progress Note ---
Date of Service January 09, 2020 Assessment & Plan (1) Acute respiratory failure with hypoxia: 2nd COPD exacerbation and suspected acute diastolic CHF. latter resolved. overall improving slowly. cont COPD Rx. (2) COPD exacerbation: she is about the same as yesterday. I am concerned about mucous plugging preventing additional progress. add mucomyst 3ml TID. again no wean on steroids today. leave at q12h dosing. cont nebs. cont flutter valve and incentive lane. finish doxy. today is last day. no PE or pneumonia on recent CTA. uses NC o2 at home just at night-time. cxr from yesterday reviewed. (3) SIADH (syndrome of inappropriate ADH production): acute/chronic hyponatremia due to SIADH from lung ca. acute hyponatremia markedly improved s/p tolvaptan. Na now at baseline. urine and serum studies most c/w SIADH. TSH wnl. nephrology consult appreciated. cont salt tabs/lasix. BMP am. (4) Atrial fibrillation with rapid ventricular response: continues with episodes of PAF. appreciate cardiology consultation. rate control recommended. cont eliquis 5mg BID. echo noted with preserved EF. K/mag wnl. cont CCB 360mg qam. cont telemetry. (5) Chronic hyponatremia: acute/chronic. baseline about 130. 123 at admission. lowest 119. now 131. see discussion above in "SIADH." (6) Acute diastolic CHF (congestive heart failure): resolved clinically. echo findings noted. have resumed PO lasix. (7) Ileus: resolved. +stools. (8) Hypertension: cont home meds (9) Anxiety: xanax prn (10) Esophageal reflux: PPI (11) Non-small cell carcinoma of lung: follows with Dr Pulido CT this admission shows progression of disease since early November despite immune- based therapy Dr Pulido aware. appreciate formal palliative care consult. DNR/DNI. home with hospice at pt request. (12) Prediabetes: cont lantus/novolog (13) Chronic kidney disease, stage 3a: Cr stable BMP am (14) DVT prophylaxis: eliquis PT/OT once COPD flare is improved will d/c home w/ hospice Admission and Anticipated Discharge Date Admission Date: January 03, 2020 Subjective no events overnight no PAF overnight still coughing and feels "there is stuff" in the lungs she can't cough up denies dyspnea at rest; has baseline COLE finally had "good bowel movement" today no nausea eating well still comfortable for plan to go home w/ hospice Review of Systems Constitutional: no fever Respiratory: no hemoptysis Cardiovascular: no chest pain Gastrointestinal: no abdominal pain Physical Exam Constitutional: no acute distress and no altered mental status ENMT: external ear and nose normal, oropharynx normal Respiratory: no respiratory distress Auscultation: + diminished lung sounds (entire posterior left lung - ongoing, similar to yesterday), + crackles (scant - bases) and + wheezes (Extensive b/l; no change from prior exam) Cardiovascular: Rate/Rhythm: regular rate and regular rhythm Heart Sounds: normal S1 and normal S2; no murmur Vessels: posterior tibial pulses present and dorsalis pedis pulses present; no JVD Extremities: no edema Gastrointestinal (Abdomen): Inspection/Auscultation: + abdomen distended (mild - improved from prior exams) and normal bowel sounds Percussion/Palpation: abdomen soft; abdomen nontender, no guarding and no hepatosplenomegaly Psychiatric: A+Ox3, euthymic affect Results & Data Results & Data ([facility]) Vital Signs (Past 12 Hours) Vital Signs Temp Pulse Pulse Resp BP Pulse Ox 01/09/20 19:26 83 22 94 01/09/20 19:15 36.7 C 84 24 109/70 94 01/09/20 15:57 80 01/09/20 15:55 36.7 C 85 19 131/75 94 01/09/20 14:46 82 22 94 01/09/20 11:36 36.3 C L 88 22 120/63 94 01/09/20 11:16 86 18 95 Laboratory Results Laboratory Results - last 24 hr 01/09/20 01/09/20 01/09/20 06:06 07:23 11:18 Sodium 130 L Potassium 4.0 Chloride 91 L Carbon Dioxide 32 Anion Gap 6.0 BUN 29 H Creatinine 1.06 Est Cr Clr Drug Dosing 44.6 Est GFR ( Amer) 59.9 Est GFR (Non-Af Amer) 51.7 BUN/Creatinine Ratio 27.7 H Glucose 152 H POC Glucose 172 H 242 H Calcium 8.6 01/09/20 01/09/20 16:17 20:30 Sodium Potassium Chloride Carbon Dioxide Anion Gap BUN Creatinine Est Cr Clr Drug Dosing Est GFR ( Amer) Est GFR (Non-Af Amer) BUN/Creatinine Ratio Glucose POC Glucose 80 115 H Calcium PG Care Time/CCT Total # of Minutes Spent Total Time Spent with Patient: Total time spent is greater than 50% in coordination of care (as documented) at patient's floor/unit and/or counseling patient: Coding Level of Care Code 55496 Subseq Hosp Care Lvl 2 Diagnoses Acute respiratory failure with hypoxia J96.01 COPD exacerbation J44.1 SIADH (syndrome of inappropriate ADH production) E22.2 Atrial fibrillation with rapid ventricular response I48.91 Chronic hyponatremia E87.1 Acute diastolic CHF (congestive heart failure) I50.31 Ileus K56.7 Hypertension I10 Anxiety F41.9 Esophageal reflux K21.9 Non-small cell carcinoma of lung C34.90 Prediabetes R73.03 Chronic kidney disease, stage 3a N18.3 DVT prophylaxis Z29.9
[2020-01-09] MEDS: ATORVASTATIN 20 MG TAB PO SCH (21:57)
[2020-01-10] MEDS: ALBUT/IPRATROP 3MG/0.5MG NEB 3 ML VIAL NEB SCH ×6 (03:26→22:45)
[2020-01-10] MEDS: methylPREDNISolone 40 MG in SYRINGE 0 ML IV SCH (03:35)
[2020-01-10] MEDS: ACETYLCYSTEINE 20% INHAL SOLN 30ML INH SCH ×3 (06:57→19:09)
[2020-01-10 08:01] LABS: BUN Creatinine Ratio 31.9 (10-20); Calcium 8.5 mg/dl (8.5-10.1); Creatinine Clr Calc Pharmacy 44.6 ml/min; Est GFR (African American) 59.9; Est GFR (Non-African American) 51.7; Potassium 4.1 mmol/L (3.5-5.1)
[2020-01-10] MEDS: SODIUM CHLORIDE 1 GM TABLET PO SCH ×2 (08:24→20:35)
[2020-01-10] MEDS: INSULIN ASPART 100 UNITS/ML 3 ML PEN SC SCH ×4 (08:24→21:34)
[2020-01-10] MEDS: FEXOFENADINE 60 MG TAB PO SCH ×2 (08:24→20:34)
[2020-01-10] MEDS: DOXYCYCLINE HYCLATE 100 MG CAP PO SCH (08:24)
[2020-01-10] MEDS: APIXABAN 5 MG TABLET PO SCH ×2 (08:24→20:34)
[2020-01-10] MEDS: INSULIN GLARGINE SOLOSTAR 100 UNITS/ML 3 ML PEN SC SCH (08:25)
[2020-01-10] MEDS: FUROSEMIDE 20 MG TAB PO SCH ×2 (08:25→17:00)
[2020-01-10] MEDS: PARoxetine HCL 20 MG TAB PO SCH (08:25)
[2020-01-10] MEDS: guaiFENesin 600 MG TABCR PO SCH ×2 (08:25→20:34)
[2020-01-10] MEDS: dilTIAZem HCL 180 MG CAPCR PO SCH (08:25)
[2020-01-10] MEDS: ASPIRIN 81 MG ECTAB PO SCH (08:25)
[2020-01-10] MEDS: PANTOprazole 40 MG TAB PO SCH ×2 (08:25→20:34)
[2020-01-10] MEDS: TRIAMCINOLONE ACET NASAL SPRAY 10.8ML BTL NAE SCH (08:26)
[2020-01-10] MEDS: methylPREDNISolone 30 MG in SYRINGE 0 ML IV SCH (16:33)
[2020-01-10] MEDS: ATORVASTATIN 20 MG TAB PO SCH (20:34)
--- NOTE | 2020-01-10 20:54 | Hospitalist Progress Note ---
Date of Service January 10, 2020 Assessment & Plan (1) Acute respiratory failure with hypoxia: 2nd COPD exacerbation and suspected acute diastolic CHF. latter resolved. COPD flare improving albeit slowly. cont COPD Rx. (2) COPD exacerbation: improved today. wean solumedrol to 30mg IV q12h. perhaps we can wean to PO prednisone tomorrow and then perform slow taper. she takes prednisone 10mg/day chronically at home. completed 7 day antibiotic course while here. cont mucomyst TID in nebs. cont duonebs. cont flutter valve and incentive lane. no PE or pneumonia on recent CTA. uses NC o2 at home just at night-time but will be d/c home on hospice and thus can use NC O2 [id number] if needed. (3) SIADH (syndrome of inappropriate ADH production): acute/chronic hyponatremia due to SIADH from lung ca. acute hyponatremia markedly improved s/p tolvaptan. Na now at baseline. urine and serum studies most c/w SIADH. TSH wnl. nephrology consult appreciated. cont salt tabs/lasix. BMP am. (4) Chronic hyponatremia: acute/chronic. baseline about 130. 123 at admission. lowest 119. now 130. see discussion above in "SIADH." (5) Atrial fibrillation with rapid ventricular response: continues with episodes of PAF at times but no symptoms from such. appreciate cardiology consultation. rate control recommended. cont eliquis 5mg BID. echo noted with preserved EF. K/mag wnl. cont CCB 360mg qam. cont telemetry. (6) Acute diastolic CHF (congestive heart failure): resolved clinically. echo findings noted. have resumed PO lasix. (7) Ileus: resolved. +stools. (8) Hypertension: cont home meds (9) Anxiety: xanax prn (10) Esophageal reflux: PPI (11) Non-small cell carcinoma of lung: follows with Dr Pulido CT this admission shows progression of disease since early November despite immune- based therapy Dr Pulido aware. appreciate formal palliative care consult. DNR/DNI. home with hospice at pt request. (12) Prediabetes: cont lantus/novolog controlled as we wean steroids insulin will need down-adjusting (13) Chronic kidney disease, stage 3a: Cr stable BMP am (14) DVT prophylaxis: eliquis PT/OT once COPD flare is improved will d/c home w/ hospice -- Saturday or Saturday? updated daughter Larisa 01/09 by phone she is in agreement with plan for home with hospice for her mother Admission and Anticipated Discharge Date Admission Date: January 03, 2020 Subjective no events overnight HRs controlled feels "about the same" as yesterday with respect to her breathing no better, no worse coughing - no sputum yet tolerating mucomyst nebs no dyspnea at rest no orthopnea eating well 2 BMs today Review of Systems Constitutional: no fever and no anorexia Respiratory: + wheezing; no sputum production Cardiovascular: no chest pain Gastrointestinal: no abdominal pain Physical Exam Constitutional: no acute distress and no altered mental status ENMT: external ear and nose normal, oropharynx normal Respiratory: no respiratory distress Auscultation: + diminished lung sounds (Left lung - improved aeration today), + crackles (scant - bases) and + wheezes (B/l but improved from yesterday ) Cardiovascular: Rate/Rhythm: regular rate and regular rhythm Heart Sounds: normal S1 and normal S2; no murmur Vessels: posterior tibial pulses present and dorsalis pedis pulses present; no JVD Extremities: no edema Gastrointestinal (Abdomen): Inspection/Auscultation: normal bowel sounds; abdomen not distended (Resolved) Percussion/Palpation: abdomen soft; abdomen nontender, no guarding and no hepatosplenomegaly Psychiatric: Orientation: alert and oriented x 3 Results & Data Results & Data ([facility]) Vital Signs (Past 12 Hours) Vital Signs Temp Pulse Pulse Resp BP Pulse Ox 01/10/20 20:07 37 C 91 H 18 134/70 93 01/10/20 19:10 64 18 94 01/10/20 16:00 83 01/10/20 15:17 37.1 C 82 18 157/71 H 92 01/10/20 15:16 83 18 91 01/10/20 11:43 36.8 C 92 H 18 106/66 96 01/10/20 11:01 101 H 18 92 Laboratory Results Laboratory Results - last 24 hr 01/10/20 01/10/20 01/10/20 07:13 07:32 11:18 Sodium 130 L Potassium 4.1 Chloride 92 L Carbon Dioxide 29 Anion Gap 9.0 BUN 34 H Creatinine 1.06 Est Cr Clr Drug Dosing 44.6 Est GFR ( Amer) 59.9 Est GFR (Non-Af Amer) 51.7 BUN/Creatinine Ratio 31.9 H Glucose 158 H POC Glucose 170 H 290 H Calcium 8.5 01/10/20 01/10/20 01/10/20 16:18 20:22 20:23 Sodium Potassium Chloride Carbon Dioxide Anion Gap BUN Creatinine Est Cr Clr Drug Dosing Est GFR ( Amer) Est GFR (Non-Af Amer) BUN/Creatinine Ratio Glucose POC Glucose 97 59 L* 72 Calcium 01/10/20 20:31 Sodium Potassium Chloride Carbon Dioxide Anion Gap BUN Creatinine Est Cr Clr Drug Dosing Est GFR ( Amer) Est GFR (Non-Af Amer) BUN/Creatinine Ratio Glucose POC Glucose 65 L* Calcium PG Care Time/CCT Total # of Minutes Spent Total Time Spent with Patient: Total time spent is greater than 50% in coordination of care (as documented) at patient's floor/unit and/or counseling patient: Coding Level of Care Code 79034 Subseq Hosp Care Lvl 2 Diagnoses Acute respiratory failure with hypoxia J96.01 COPD exacerbation J44.1 SIADH (syndrome of inappropriate ADH production) E22.2 Chronic hyponatremia E87.1 Atrial fibrillation with rapid ventricular response I48.91 Acute diastolic CHF (congestive heart failure) I50.31 Ileus K56.7 Hypertension I10 Anxiety F41.9 Esophageal reflux K21.9 Non-small cell carcinoma of lung C34.90 Prediabetes R73.03 Chronic kidney disease, stage 3a N18.3 DVT prophylaxis Z29.9
[2020-01-11] MEDS: ALBUT/IPRATROP 3MG/0.5MG NEB 3 ML VIAL NEB SCH ×6 (03:06→22:28)
[2020-01-11] MEDS: methylPREDNISolone 30 MG in SYRINGE 0 ML IV SCH ×2 (03:26→17:58)
[2020-01-11] MEDS: ACETAMINOPHEN 325 MG TAB PO PRN (06:02)
[2020-01-11] MEDS: ACETYLCYSTEINE 20% INHAL SOLN 30ML INH SCH ×3 (06:54→18:56)
[2020-01-11 07:47] LABS: Hematocrit (blood only) 37.9 % (37-47); Hemoglobin 13.1 g/dL (12.0-16.0); Mean Corpuscular Hgb Conc 34.6 g/dL (32-36); Mean Corpuscular Volume 92.4 fL (80-100); Mean Platelet Volume 8.8 fL (7.4-10.4); Platelet Count 206 K/uL (130-400); RDW Coefficient of Variation 13.1 % (11.5-14.5); RDW Standard Deviation 44.6 fL (36.4-46.3); White Blood Count 11.52 K/uL (4.8-10.8)
[2020-01-11] MEDS: FEXOFENADINE 60 MG TAB PO SCH ×2 (07:56→20:20)
[2020-01-11] MEDS: PANTOprazole 40 MG TAB PO SCH ×2 (07:56→20:20)
[2020-01-11] MEDS: guaiFENesin 600 MG TABCR PO SCH ×2 (07:56→20:20)
[2020-01-11] MEDS: SODIUM CHLORIDE 1 GM TABLET PO SCH ×2 (07:56→20:20)
[2020-01-11] MEDS: PARoxetine HCL 20 MG TAB PO SCH (07:57)
[2020-01-11] MEDS: dilTIAZem HCL 180 MG CAPCR PO SCH (07:57)
[2020-01-11] MEDS: FUROSEMIDE 20 MG TAB PO SCH ×2 (07:57→17:28)
[2020-01-11] MEDS: ASPIRIN 81 MG ECTAB PO SCH (07:57)
[2020-01-11] MEDS: APIXABAN 5 MG TABLET PO SCH ×2 (07:57→20:20)
[2020-01-11] MEDS: INSULIN GLARGINE SOLOSTAR 100 UNITS/ML 3 ML PEN SC SCH (07:58)
[2020-01-11] MEDS: TRIAMCINOLONE ACET NASAL SPRAY 10.8ML BTL NAE SCH (07:58)
[2020-01-11] MEDS: INSULIN ASPART 100 UNITS/ML 3 ML PEN SC SCH ×4 (08:00→20:23)
[2020-01-11 08:15] LABS: BUN Creatinine Ratio 30.2 (10-20); Calcium 8.3 mg/dl (8.5-10.1); Creatinine Clr Calc Pharmacy 48.1 ml/min; Est GFR (African American) 65.1; Est GFR (Non-African American) 56.1; Potassium 4.5 mmol/L (3.5-5.1)
--- NOTE | 2020-01-11 13:05 | Cardiology Progress Note ---
Date of Service January 11, 2020 Assessment & Plan (1) Atrial fibrillation with rapid ventricular response: She does have ongoing paroxysmal atrial fibrillation. The heart rate is reasonably well controlled on her current regimen, she is asymptomatic and therefore would recommend continuing the diltiazem. She also needs to be on anticoagulation. (2) Chest pain: She had an atypical type chest discomfort on presentation and negative cardiac enzymes, I doubt she has ischemic heart disease. A repeat troponin remained undetectable consistent with this. This has not been a recurrent issue. Admission and Anticipated Discharge Date Admission Date: January 03, 2020 Subjective She is feeling a little better today, she has no cardiovascular symptoms, no awareness of her heart rate and no chest discomfort. Improvement in her shortness of breath. Physical Exam Physical Exam: Constitutional: Alert, cooperative and in no distress. HEENT: Unremarkable Neck: No jugular venous distention, carotid pulses are normal and equal bilaterally without bruits. Pulmonary: Rhonchi and expiratory wheezes bilaterally. Cardiac: Regular rhythm with no murmur, gallop or rub. Abdomen: Soft, nontender with normal bowel sounds. Extremities: No edema. Distal pulses intact. Neurologic: No focal findings. Gait is steady. Skin: No rash, ecchymoses or petechiae. Results & Data ([facility]) Vital Signs (Past 12 Hours) Vital Signs Temp Pulse Pulse Resp BP BP Pulse Ox 01/11/20 11:09 36.8 C 97 H 20 166/80 H 90 01/11/20 10:51 99 H 24 90 01/11/20 08:00 92 H 01/11/20 06:54 71 16 97 01/11/20 03:16 36.8 C 111 H 19 126/78 97 01/11/20 03:07 80 16 94 Laboratory Results CBC 01/11/20 Range/Units 07:14 WBC 11.52 H (4.8-10.8) K/uL RBC 4.10 L (4.2-5.4) M/uL Hgb 13.1 (12.0-16.0) g/dL Hct 37.9 (37-47) % Plt Count 206 (130-400) K/uL Comprehensive Metabolic Panel 01/11/20 Range/Units 07:14 Sodium 127 L (136-145) mmol/L Potassium 4.5 (3.5-5.1) mmol/L Chloride 89 L (98-107) mmol/L Carbon Dioxide 32 (21-32) mmol/L BUN 30 H (7-18) mg/dl Creatinine 0.99 (0.6-1.2) mg/dl Glucose 133 H (70-99) mg/dl Calcium 8.3 L (8.5-10.1) mg/dl Intake and Output 01/10/20 01/11/20 01/11/20 22:59 06:59 14:59 Intake Total 820 / 1670 200 / 1670 Output Total 1000 / 2950 900 / 2950 Balance -180 / -1280 -700 / -1280 Intake: Oral 820 / 1670 200 / 1670 Output: Urine 1000 / 2950 900 / 2950 Other: Weight 77.7 kg Diagnostic Findings Telemetry: She continues episodes of atrial fibrillation, these are intermittent, relatively brief and the rate is reasonably well controlled. PG Care Time/CCT Total # of Minutes Spent Total Time Spent with Patient: Total time spent is greater than 50% in coordination of care (as documented) at patient's floor/unit and/or counseling patient: Coding Level of Care Code 10680 Subseq Hosp Care Lvl 2 Diagnoses Atrial fibrillation with rapid ventricular response I48.91 Chest pain R07.9
--- NOTE | 2020-01-11 14:10 | Palliative Care Progress Note ---
Date of Service January 11, 2020 Assessment & Plan (1) Goals of care, counseling/discussion: -Met with patient in room 240-1. Patient was sitting upright in her hospital bed, eating lunch in no apparent distress. -The patient will be returning home today or tomorrow with [facility]. -In reviewing the oil field caser note, equipment will be delivered today. -Patient currently lives with her mother who has dementia, her sister also has moved into healthcare for their mother as well as the patient. Patient's children and stepchildren live nearby and are very supportive and available as well as patient's brother lives approximately a mile away. -Currently, the patient does not have any symptom management needs. -Palliative Care will sign off at this time. -Please let me know if I can be of further assistance. -PPS 30% (2) Atrial fibrillation with rapid ventricular response: (3) Chronic kidney disease, stage 3a: (4) Acute diastolic CHF (congestive heart failure): (5) COPD exacerbation: Subjective Pt sitting upright in her hospital bed, eating lunch. Pt in no apparent distress Pt denies chest pain, dizziness, SOB Review of Systems Review of Systems: All systems reviewed & are unremarkable except as noted in HPI & below Physical Exam Constitutional: + ill appearing and cooperative Respiratory: normal respiratory effort, lungs clear to auscultation Cardiovascular: RRR, no murmur, no edema Extremities: normal capillary refill Gastrointestinal (Abdomen): normal bowel sounds, soft, nontender, no hepatosplenomegaly Skin: no rashes, warm and dry Psychiatric: A+Ox3, euthymic affect Results & Data Vital Signs (Past 12 Hours) Vital Signs Temp Pulse Pulse Resp BP BP Pulse Ox 01/11/20 11:09 36.8 C 97 H 20 166/80 H 90 01/11/20 10:51 99 H 24 90 01/11/20 08:00 92 H 01/11/20 06:54 71 16 97 01/11/20 03:16 36.8 C 111 H 19 126/78 97 01/11/20 03:07 80 16 94 PG Care Time/CCT Total # of Minutes Spent Total Time Spent with Patient: Total time spent is greater than 50% in coordination of care (as documented) at patient's floor/unit and/or counseling patient: 25 Coding Level of Care Code 40941 Subseq Hosp Care Lvl 2 Diagnoses Goals of care, counseling/discussion Z71.89 Atrial fibrillation with rapid ventricular response I48.91 Chronic kidney disease, stage 3a N18.3 Acute diastolic CHF (congestive heart failure) I50.31 COPD exacerbation J44.1 Time Spent Midlevel Total time spent 25 minutes with > 50% of that time spent assessing the patient, discussing discharge planning and addressing any symptom management
[2020-01-11] MEDS: ATORVASTATIN 20 MG TAB PO SCH (20:20)
--- NOTE | 2020-01-11 22:54 | Hospitalist Progress Note ---
Date of Service January 11, 2020 Assessment & Plan (1) Acute respiratory failure with hypoxia: 2nd COPD exacerbation and suspected acute diastolic CHF. latter resolved. COPD flare improving slowly. plan to d/c on Prednisone taper, home with hospice tomorrow (2) COPD exacerbation: improving continue solumedrol 30mg IV q12h. d/c tomorrow on Prednisone completed 7 day antibiotic course while here. cont mucomyst TID in nebs. cont duonebs. cont flutter valve and incentive lane. no PE or pneumonia on recent CTA. uses NC o2 at home just at night-time but will be d/c home on hospice and thus can use NC O2 [id number] if needed. (3) SIADH (syndrome of inappropriate ADH production): acute/chronic hyponatremia due to SIADH from lung ca. acute hyponatremia markedly improved s/p tolvaptan. Na now at baseline. urine and serum studies most c/w SIADH. TSH wnl. nephrology consult appreciated. cont salt tabs/lasix. Na is 127 today (4) Chronic hyponatremia: acute/chronic. baseline about 130. 123 at admission. lowest 119. now 127 see discussion above in "SIADH." (5) Atrial fibrillation with rapid ventricular response: continues with episodes of PAF at times but no symptoms from such. appreciate cardiology consultation. rate control recommended. cont eliquis 5mg BID. echo noted with preserved EF. K/mag wnl. cont CCB 360mg qam. cont telemetry, d/c to home tomorrow on hospice (6) Acute diastolic CHF (congestive heart failure): resolved clinically. echo findings noted. have resumed PO lasix. (7) Ileus: resolved. +stools. (8) Hypertension: cont home meds (9) Anxiety: xanax prn (10) Esophageal reflux: PPI (11) Non-small cell carcinoma of lung: follows with Dr Pulido CT this admission shows progression of disease since early November despite immune- based therapy Dr Pulido aware. appreciate formal palliative care consult. DNR/DNI. home with hospice tomorrow (12) Prediabetes: cont lantus/novolog controlled as we wean steroids insulin will need down-adjusting (13) Chronic kidney disease, stage 3a: Cr stable BMP am (14) DVT prophylaxis: eliquis PT/OT home tomorrow on hospice Admission and Anticipated Discharge Date Admission Date: January 03, 2020 Subjective patient doing okay, she is looking forward to going home accepting of her decision to go home on hospice she is eating, motivated to move around the room breathing is acceptable labs reviewed, Na is 127, stable d/w CM, plan for home hospice tomorrow morning Review of Systems Review of Systems: All systems reviewed & are unremarkable except as noted in Subjective Constitutional: + fatigue and + weakness; no fever Respiratory: + cough and + dyspnea on exertion; no dyspnea Cardiovascular: no chest pain and no edema Physical Exam Constitutional: well developed, well nourished and + frail appearing; no acute distress Eyes: PERRL, conjunctivae normal, anicteric sclerae ENMT: external ear and nose normal, oropharynx normal Neck: trachea midline, no thyromegaly Respiratory: normal respiratory effort and + cough; no respiratory distress and no labored breathing Auscultation: + diminished lung sounds, + crackles and + rhonchi; no rales and no wheezes Cardiovascular: RRR, no murmur, no edema Gastrointestinal (Abdomen): normal bowel sounds, soft, nontender, no hepatosplenomegaly Musculoskeletal: no cyanosis or clubbing, extremities motor strength 5/5 Skin: no rashes, warm and dry Neurologic: patellar DTR's 2+ bilat, sensation intact and PERRL, EOMI, accommodation nl, no face palsy, no dysarthria Psychiatric: A+Ox3, euthymic affect Lymphatic: no cervical or axillary lymphadenopathy Results & Data Results & Data ([facility]) Vital Signs (Past 12 Hours) Vital Signs Temp Pulse Pulse Resp BP BP Pulse Ox 01/11/20 22:29 90 20 96 01/11/20 19:43 36.9 C 86 20 148/77 H 96 01/11/20 18:59 101 H 16 96 01/11/20 16:00 85 01/11/20 15:47 36.9 C 91 H 20 151/76 H 91 01/11/20 15:15 81 16 92 01/11/20 11:09 36.8 C 97 H 20 166/80 H 90 01/11/20 10:51 99 H 24 90 Laboratory Results Laboratory Results - last 24 hr 01/11/20 01/11/20 01/11/20 07:14 07:14 07:27 WBC 11.52 H RBC 4.10 L Hgb 13.1 Hct 37.9 MCV 92.4 MCH 32.0 MCHC 34.6 RDW Std Deviation 44.6 RDW Coeff of Filemon 13.1 Plt Count 206 MPV 8.8 Sodium 127 L Potassium 4.5 Chloride 89 L Carbon Dioxide 32 Anion Gap 6.0 BUN 30 H Creatinine 0.99 Est Cr Clr Drug Dosing 48.1 Est GFR ( Amer) 65.1 Est GFR (Non-Af Amer) 56.1 BUN/Creatinine Ratio 30.2 H Glucose 133 H POC Glucose 140 H Calcium 8.3 L 01/11/20 01/11/20 01/11/20 11:34 16:23 20:08 WBC RBC Hgb Hct MCV MCH MCHC RDW Std Deviation RDW Coeff of Filemon Plt Count MPV Sodium Potassium Chloride Carbon Dioxide Anion Gap BUN Creatinine Est Cr Clr Drug Dosing Est GFR ( Amer) Est GFR (Non-Af Amer) BUN/Creatinine Ratio Glucose POC Glucose 226 H 199 H 203 H Calcium Medications Administered Current Inpatient Medications Acetaminophen (Tylenol) 650 mg PO Q4H PRN PRN Reason: Pain or Fever Stop: 02/02/20 04:57 Last Admin: 01/11/20 06:02 Dose: 650 mg Documented by: Acetylcysteine (Mucomyst 20%) 2 ml INH TIDR [facility] Stop: 02/08/20 18:04 Last Admin: 01/11/20 18:56 Dose: 2 ml Documented by: Al Hydrox/Mg Hydrox/Simethicone (Maalox) 15 ml PO Q4H PRN PRN Reason: Dyspepsia Stop: 02/02/20 04:57 Albuterol (Duoneb) 3 ml NEB Q4R [facility] Stop: 02/03/20 13:09 Last Admin: 01/11/20 22:28 Dose: 3 ml Documented by: Alprazolam (Xanax) 0.25 mg PO Q12 PRN PRN Reason: Anxiety Stop: 02/02/20 04:57 Apixaban (Eliquis) 5 mg PO BID [facility] Stop: 02/06/20 20:59 Last Admin: 01/11/20 20:20 Dose: 5 mg Documented by: Aspirin (Ecotrin Ectab) 81 mg PO QAM [facility] Stop: 08/25/20 08:59 Last Admin: 01/11/20 07:57 Dose: 81 mg Documented by: Atorvastatin Calcium (Lipitor) 20 mg PO HS ERICKA Stop: 02/02/20 20:59 Last Admin: 01/11/20 20:20 Dose: 20 mg Documented by: Dextrose (Dextrose 50%) 25 - 50 ml IV UD PRN; Protocol PRN Reason: Hypoglycemia Protocol Stop: 02/02/20 12:29 Diltiazem HCl (Cardizem Cd) 360 mg PO QAM ERICKA Stop: 02/07/20 08:59 Last Admin: 01/11/20 07:57 Dose: 360 mg Documented by: Fexofenadine HCl (Janett) 60 mg PO BID ERICKA Stop: 02/02/20 08:59 Last Admin: 01/11/20 20:20 Dose: 60 mg Documented by: Furosemide (Lasix) 20 mg PO BID17 ERICKA Stop: 02/07/20 16:59 Last Admin: 01/11/20 17:28 Dose: 20 mg Documented by: Glucagon (Glucagen) 1 mg IM UD PRN; Protocol PRN Reason: Hypoglycemia Protocol Stop: 02/02/20 12:29 Glucose (Glucose 40%) 15 - 30 gm PO UD PRN; Protocol PRN Reason: Hypoglycemia Protocol Stop: 02/02/20 12:29 Glucose (Dex4 Glucose) 4 - 8 tabs PO UD PRN; Protocol PRN Reason: Hypoglycemia Protocol Stop: 02/02/20 12:29 Guaifenesin (Mucinex) 1,200 mg PO Q12 ERICKA Stop: 02/07/20 14:29 Last Admin: 01/11/20 20:20 Dose: 1,200 mg Documented by: Methylprednisolone 30 mg/ (Syringe) 0.48 mls @ 1.5 mls/min IV Q12H ERICKA Stop: 02/06/20 15:59 Last Admin: 01/11/20 17:58 Dose: 1.5 mls/min Documented by: Insulin Aspart (Novolog Flexpen) 0 units SC ACHS [facility] Stop: 02/02/20 12:44 Last Admin: 01/11/20 20:23 Dose: 3 units Documented by: Insulin Glargine (Lantus Solostar Pen) 15 units SC QAM ERICKA Stop: 02/05/20 08:59 Last Admin: 01/11/20 07:58 Dose: 15 units Documented by: Magnesium Hydroxide (Milk Of Magnesia) 30 ml PO Q12H PRN PRN Reason: Constipation Stop: 02/02/20 04:57 Last Admin: 01/09/20 08:37 Dose: 30 ml Documented by: Miscellaneous (Carbohydrates For Hypoglycemia) 15 - 30 gm PO UD PRN PRN Reason: Hypoglycemia Treatment Stop: 02/02/20 12:29 Last Admin: 01/10/20 20:33 Dose: 15 gm Documented by: Ondansetron HCl (Zofran) 4 mg IV Q6H PRN PRN Reason: Nausea Stop: 02/02/20 04:57 Last Admin: 01/03/20 11:45 Dose: 4 mg Documented by: Pantoprazole Sodium (Protonix) 40 mg PO BID [facility] Stop: 02/02/20 08:59 Last Admin: 01/11/20 20:20 Dose: 40 mg Documented by: Paroxetine HCl (Paxil) 20 mg PO QAM [facility] Stop: 02/02/20 08:59 Last Admin: 01/11/20 07:57 Dose: 20 mg Documented by: Sodium Chloride (Sodium Chloride) 1 gm PO BID [facility] Stop: 02/06/20 10:44 Last Admin: 01/11/20 20:20 Dose: 1 gm Documented by: Triamcinolone Acetonide (Nasacort) 2 sprays BRIGID DAILY [facility] Stop: 02/02/20 08:59 Last Admin: 01/11/20 07:58 Dose: 2 sprays Documented by: PG Care Time/CCT Total # of Minutes Spent Total Time Spent with Patient: Total time spent is greater than 50% in coordination of care (as documented) at patient's floor/unit and/or counseling patient: Coding Level of Care Code 49069 Subseq Hosp Care Lvl 2 Diagnoses Acute respiratory failure with hypoxia J96.01 COPD exacerbation J44.1 SIADH (syndrome of inappropriate ADH production) E22.2 Chronic hyponatremia E87.1 Atrial fibrillation with rapid ventricular response I48.91 Acute diastolic CHF (congestive heart failure) I50.31 Ileus K56.7 Hypertension I10 Anxiety F41.9 Esophageal reflux K21.9 Non-small cell carcinoma of lung C34.90 Prediabetes R73.03 Chronic kidney disease, stage 3a N18.3 DVT prophylaxis Z29.9
[2020-01-12] MEDS: ALBUT/IPRATROP 3MG/0.5MG NEB 3 ML VIAL NEB SCH ×2 (03:00→06:50)
[2020-01-12] MEDS: methylPREDNISolone 30 MG in SYRINGE 0 ML IV SCH (04:09)
[2020-01-12] MEDS: ACETYLCYSTEINE 20% INHAL SOLN 30ML INH SCH (06:50)
[2020-01-12 06:56] VITALS: O2SAT 91
[2020-01-12 07:13] VITALS: BP 158/80; TEMP 97.7
[2020-01-12] MEDS: FUROSEMIDE 20 MG TAB PO SCH (08:07)
[2020-01-12] MEDS: APIXABAN 5 MG TABLET PO SCH (08:07)
[2020-01-12] MEDS: dilTIAZem HCL 180 MG CAPCR PO SCH (08:07)
[2020-01-12] MEDS: FEXOFENADINE 60 MG TAB PO SCH (08:07)
[2020-01-12] MEDS: SODIUM CHLORIDE 1 GM TABLET PO SCH (08:07)
[2020-01-12] MEDS: ASPIRIN 81 MG ECTAB PO SCH (08:07)
[2020-01-12] MEDS: PANTOprazole 40 MG TAB PO SCH (08:07)
[2020-01-12] MEDS: guaiFENesin 600 MG TABCR PO SCH (08:07)
[2020-01-12] MEDS: PARoxetine HCL 20 MG TAB PO SCH (08:07)
[2020-01-12] MEDS: INSULIN GLARGINE SOLOSTAR 100 UNITS/ML 3 ML PEN SC SCH (08:08)
[2020-01-12] MEDS: INSULIN ASPART 100 UNITS/ML 3 ML PEN SC SCH (08:09)
[2020-01-12] MEDS: TRIAMCINOLONE ACET NASAL SPRAY 10.8ML BTL NAE SCH (08:09)
[2020-01-12 08:56] VITALS: PULSE 76
--- NOTE | 2020-01-12 09:06 | Discharge Summary ---
Date of Service January 12, 2020 Admission HPI Per Admitting Provider The patient is a 74-year-old female with a past medical history including COPD, chronic hyponatremia, lung mass, status post pulmonary artery branches stent placement, chronic pain syndrome, hyperlipidemia, GERD, hypertension, non-small cell lung cancer, and anxiety with depression. Her most recent hospitalization was from 11/16-11/19 for COPD exacerbation. Work-up in the emergency department included a CT angiography of the chest which was negative for PE, but did show progression of underlying disease. Principal Diagnosis Progressive non-small cell lung cancer Discharge Exam Constitutional well developed, well nourished and + frail appearing; no acute distress Eyes PERRL, conjunctivae normal, anicteric sclerae ENMT external ear and nose normal, oropharynx normal Neck trachea midline, no thyromegaly Respiratory normal respiratory effort and + cough; no respiratory distress and no labored breathing Auscultation: + diminished lung sounds, + crackles and + rhonchi; no rales and no wheezes Cardiovascular RRR, no murmur, no edema Gastrointestinal (Abdomen) normal bowel sounds, soft, nontender, no hepatosplenomegaly Musculoskeletal no cyanosis or clubbing, extremities motor strength 5/5 Skin no rashes, warm and dry Neurologic patellar DTR's 2+ bilat, sensation intact and PERRL, EOMI, accommodation nl, no face palsy, no dysarthria Psychiatric A+Ox3, euthymic affect Lymphatic no cervical or axillary lymphadenopathy Discharge Data Allergies Allergy/AdvReac Type Severity Reaction Status Date / Time hydrochlorothiazide AdvReac Intermediate DIZZY, Verified 01/02/20 23:03 "LOOPY" FEELING Consultations 01/03/20 02:36 ED Decision to Admit Stat 01/03/20 02:41 ED Decision to Admit Stat 01/05/20 15:21 Consult Cardiology Routine 01/07/20 14:50 Consult Palliative Care Routine Ordered Studies 01/03/20 00:01 CT angio chest PE protocol Urgent Hospital Course (1) Acute respiratory failure with hypoxia: 2nd COPD exacerbation and suspected acute diastolic CHF. latter resolved. COPD flare improving slowly. plan to d/c on Prednisone taper, home with hospice (2) COPD exacerbation: improving continue solumedrol 30mg IV q12h. d/c today on Prednisone completed 7 day antibiotic course while here. cont mucomyst TID in nebs. cont duonebs. cont flutter valve and incentive lane. no PE or pneumonia on recent CTA. uses NC o2 at home just at night-time but will be d/c home on hospice and thus can use NC O2 [id number] if needed. (3) SIADH (syndrome of inappropriate ADH production): acute/chronic hyponatremia due to SIADH from lung ca. acute hyponatremia markedly improved s/p tolvaptan. Na now at baseline. urine and serum studies most c/w SIADH. TSH wnl. nephrology consult appreciated. cont salt tabs/lasix. Na is 127 when last checked (4) Chronic hyponatremia: acute/chronic. baseline about 130. 123 at admission. lowest 119. now 127 see discussion above in "SIADH." (5) Atrial fibrillation with rapid ventricular response: continues with episodes of PAF at times but no symptoms from such. appreciate cardiology consultation. rate control recommended. cont eliquis 5mg BID. echo noted with preserved EF. K/mag wnl. cont CCB 360mg qam. cont telemetry, d/c to home on hospice (6) Acute diastolic CHF (congestive heart failure): resolved clinically. echo findings noted. have resumed PO lasix. (7) Ileus: resolved. +stools. (8) Hypertension: cont home meds (9) Anxiety: xanax prn (10) Esophageal reflux: PPI (11) Non-small cell carcinoma of lung: follows with Dr Pulido CT this admission shows progression of disease since early November despite immune- based therapy Dr Pulido aware. appreciate formal palliative care consult. DNR/DNI. home with hospice (12) Prediabetes: cont lantus/novolog controlled as we wean steroids insulin will need down-adjusting (13) Chronic kidney disease, stage 3a: Cr stable BMP am (14) DVT prophylaxis: eliquis PT/OT home on hospice Total Time Total Time Spent Total Time Spent (In Minutes): 31 minutes Total Time Includes: Examination of the Patient, Discharge Planning, Medication Reconciliation and Other (communication with daughter at the bedside) Discharge Plan Discharge Items Patient Disposition: Hospice - Home Reason For Visit: ACUTE RESPIRATORY FAILURE W/ HYPOXIA, HYPONATREMI Discharge Diagnosis: COPD exacerbation Progressive lung cancer Condition on Discharge: Fair Goals: complete Prednisone taper to treat COPD palliative care with hospice at home Activity: Resume your previous activity Non-emergency contact: Primary Care Provider and Heel Trimmer Call non-emergency contact if: you have any medication questions and your symptoms worsen Follow-up/Referrals: Ari Renee DO [Primary Care Provider] - Diet: Regular Addtl Attending Provider Instructions: Medications: - DILTIAZEM: dose increased by cardiology for better heart rate control with atrial fibrillation, continue on 360mg daily, new script sent - ELIQUIS: anticoagulation to prevent stroke in setting of afib, take twice a day - PREDNISONE: follow a taper, starting tomorrow, take 30mg daily x 5 days, then 20mg daily x 5 days then resume 10mg daily - LASIX: take 20mg twice a day to control volume and help keep sodium close to normal - SODIUM CHLORIDE: take 1gm twice a day to keep sodium close to normal COPD exacerbation, pneumonia, progressive lung cancer responding well to steroids, antibiotics, nebulizer therapy complete Prednisone taper at home using nebulizers and inhaled therapy as prescribed on CT scan, lung cancer is progressing, will arrange for home hospice services to treat symptoms Atrial fibrillation: resolved, cardiology increased Cardizem to 360mg daily, stopped other blood pressure medications to allow this added Eliquis to prevent stroke Pending Studies at Discharge: No Stand-Alone Forms: My [facility] Medications and DC Order Prescriptions: New diltiazem HCl 360 mg capsule,extended release 24hr 360 mg PO QAM 30 Days Qty: 30 RF: 3 sodium chloride 1 gram Tablet 1 g PO BID 30 Days Qty: 60 RF: 3 furosemide 20 mg Tablet 20 mg PO BID17 30 Days Qty: 60 RF: 0 Eliquis 5 mg Tablet 5 mg PO BID 30 Days Qty: 60 RF: 3 prednisone 10 mg tablet 10 mg PO UD 30 Days Qty: 45 RF: 0 Continued ipratropium-albuterol 0.5 mg-3 mg(2.5 mg base)/3 mL solution for nebulization 3 ml INHALATION QID PRN (Reason: shortness of breath or wheezing) Qty: 180 RF: 1 albuterol sulfate [Ventolin HFA] 90 mcg/actuation HFA aerosol inhaler 2 puffs INH Q6H PRN (Reason: shortness of breath or wheezing) Qty: 18 RF: 3 Symbicort 160-4.5 mcg/actuation HFA aerosol inhaler 1 puff INHALATION BID Qty: 1 RF: 0 lansoprazole [Prevacid] 15 mg Capsule,Delayed Release(Dr/Ec) 15 mg PO BID RF: 0 paroxetine HCl 20 mg Tablet 20 mg PO QAM RF: 0 multivitamin Tablet 1 tab PO QAM RF: 0 fexofenadine 60 mg Tablet 60 mg PO BID Qty: 30 RF: 0 triamcinolone acetonide [Nasacort] 55 mcg Aerosol,[place] 2 spray BRIGID DAILY Qty: 1 RF: 0 atorvastatin 20 mg Tablet 20 mg PO HS RF: 0 aspirin 81 mg Tablet,Delayed Release (Dr/Ec) 81 mg PO QAM RF: 0 alprazolam 0.25 mg Tablet 0.25 mg PO Q12 PRN (Reason: Anxiety) RF: 0 Discontinued prednisone 10 mg tablet 10 mg PO DAILY Qty: 60 RF: 5 losartan [Cozaar] 50 mg Tablet 50 mg PO QAM RF: 0 diltiazem HCl [DILT-XR] 180 mg capsule,ext.rel 24h degradable 180 mg PO QAM RF: 0 Discharge Orders: Discharge Order (Routine); Ordered 01/12/20 Ordered By: Louie Inman Admission Data Admit Date/Time: 01/03/20 03:41 Attending Provider: Louie Inman Admit Provider: Madhu Keen Primary Care Provider: Ari Renee Other Providers: Madhu Keen ; Jovanny Reyes ; Helga Townsend Other Interventions: Discharge Summary Assessment (RN) Last Done: 01/12/20 08:55 DC Date/Time DO NOT enter until pt leaves facility: 01/12/20 09:19 Coding Level of Care Code D/C Day Management >30 mins Diagnoses Acute respiratory failure with hypoxia J96.01 COPD exacerbation J44.1 SIADH (syndrome of inappropriate ADH production) E22.2 Chronic hyponatremia E87.1 Atrial fibrillation with rapid ventricular response I48.91 Acute diastolic CHF (congestive heart failure) I50.31 Ileus K56.7 Hypertension I10 Anxiety F41.9 Esophageal reflux K21.9 Non-small cell carcinoma of lung C34.90 Prediabetes R73.03 Chronic kidney disease, stage 3a N18.3 DVT prophylaxis Z29.9
[2020-01-12] MEDS ORDERED: ACETYLCYSTEINE 20% INHAL SOLN 4ML ***DISPENSED BY RESP. INH SCH (13:00)
== END 2020-01-12 09:19 | disposition hospice, home (50) | DRG 291 ==
LOC: ED 22:35 → 2S 01-03 03:41 → SUATTDRO 01-03 03:41 → 2S 01-03 04:37
DX: I50.31 Acute diastolic (congestive) heart failure; Z79.52 Long term (current) use of systemic steroids; Z92.3 Personal history of irradiation; Z87.891 Personal history of nicotine dependence; Z88.0 Allergy status to penicillin; R00.0 Tachycardia, unspecified; J96.01 Acute respiratory failure with hypoxia; Z92.21 Personal history of antineoplastic chemotherapy; R73.03 Prediabetes; C34.11 Malignant neoplasm of upper lobe, right bronchus or lung; K21.9 Gastro-esophageal reflux disease without esophagitis; I48.0 Paroxysmal atrial fibrillation; E22.2 Syndrome of inappropriate secretion of antidiuretic hormone; Z51.5 Encounter for palliative care; E78.5 Hyperlipidemia, unspecified; Z66 Do not resuscitate; Z79.899 Other long term (current) drug therapy; Z79.82 Long term (current) use of aspirin; Z79.51 Long term (current) use of inhaled steroids; F41.8 Other specified anxiety disorders; T38.0X5A Adverse effect of glucocorticoids and synthetic analogues, initial encounter; J44.1 Chronic obstructive pulmonary disease with (acute) exacerbation; R07.89 Other chest pain; I13.0 Hypertensive heart and chronic kidney disease with heart failure and stage 1 through stage 4 chronic kidney disease, or unspecified chronic kidney disease; N18.3 Chronic kidney disease, stage 3 (moderate); K56.7 Ileus, unspecified